=== PATIENT | female | born 1970 | race Caucasian/White ===

== ENCOUNTER 2019-08-15 15:36 | Outpatient (RCR) | payer OTHER, SELFPAY ==
[2019-06-05 17:36] LABS: INR 2.6; Prothrombin Time 27.6 Seconds (11.1-14.7)
[2019-08-15 16:11] LABS: INR 2.1; Prothrombin Time 22.7 Seconds (11.1-14.7)
== END 2019-09-03 23:59 | disposition home or self-care (01) ==
LOC: ANHLAB 15:36
PROVIDERS: PCP Internal Medicine; Visit Provider Internal Medicine Cardiovascular Disease
DX: I26.99 Other pulmonary embolism without acute cor pulmonale (principal); Z79.01 Long term (current) use of anticoagulants
CPT/HCPCS: 36415; 85610

== ENCOUNTER 2020-02-22 11:46 | Outpatient (RCR) | payer OTHER, SELFPAY ==
[2020-02-22 12:18] LABS: Hematocrit 44.9 % (37.0-47.0); Hemoglobin 14.8 g/dL (12.0-15.0); Mean Corpuscular Hemoglobin 29.1 pg (26-34); Mean Corpuscular Volume 88.4 fl (80-100); Mean Platelet Volume 10.2 fl (7.4-10.4); Platelet Count Result 213 k/mm3 (150-375); Red Blood Count 5.08 M/mm3 (4.2-5.4); Red Cell Distribution Width 12.5 % (11.5-14.5); White Blood Count 7.3 K/mm3 (4.5-10.0)
[2020-02-22 12:30] LABS: INR 2.1; Prothrombin Time 23.3 Seconds (11.1-14.7)
[2020-02-22 12:31] LABS: Alanine Aminotransferase 12 U/L (4-35); Aspartate Amino Transferase 20 U/L (14-36)
[2020-02-28 16:42] LABS: Carbamazepine Tegretol 6.6 mcg/mL (4.0-12.0)
== END 2020-05-22 23:59 | disposition home or self-care (01) ==
LOC: ANHLAB 11:46
PROVIDERS: PCP Internal Medicine; Visit Provider Internal Medicine Cardiovascular Disease
DX: Z51.81 Encounter for therapeutic drug level monitoring (principal); I26.99 Other pulmonary embolism without acute cor pulmonale; Z79.01 Long term (current) use of anticoagulants; Z79.899 Other long term (current) drug therapy
CPT/HCPCS: 36415; 80156; 84450; 84460; 85027; 85610

== ENCOUNTER 2020-05-29 14:04 | Emergency (ER) | payer OTHER, SELFPAY ==
[2020-05-29] VITALS (18 sets, daily range): BP systolic 113–151; BP diastolic 62–95; PULSE 84–112; RESP 8–26; TEMP 36.4; O2SAT 97–100
--- NOTE | ~2020-05-29 | CT_ITS ---
EXAMINATION: CTA chest PE protocol DATE: 05/29/2020 16:46 CDT INDICATION: Shortness of breath for 2 days TECHNIQUE: Computed tomographic angiography (CTA) of the chest was performed with 100 mL Omnipaque-35 0 intravenous contrast. The dose-length product was 937.81 mGy-cm. Maximum intensity projection 3D-re constructions of the aorta and other arteries were constructed by the technologist on a separate work station. Automated exposure control and iterative reconstruction technique were employed. COMPARISON: CT dated 03/21/2018 FINDINGS: Study is technically adequate without evidence for pulmonary embolism. There is atheroscler osis of the aorta and coronary arteries. No evidence for aortic aneurysm or dissection. There are cho lecystectomy and gastric bypass surgical changes. No thoracic lymphadenopathy. No significant pleural or pericardial effusion. No pulmonary nodules or masses. No endobronchial lesions. No pneumothorax. No acute osseous abnormality. IMPRESSION: 1. No acute cardiopulmonary disease. No evidence for pulmonary embolism. Reviewed, dictated and finalized at location A.
--- NOTE | ~2020-05-29 | XR_ITS ---
EXAMINATION: XR chest 2V DATE: 05/29/2020 14:29 INDICATION: Asthma presenting with shortness of breath and pulmonary embolism. TECHNIQUE: PA and lateral views of the chest were obtained. COMPARISON: Chest radiograph dated 11/15/[address] dated 03/21/2018 FINDINGS: The lungs remain clear with no focal airspace opacities, pulmonary edema, pleural effusion or pneumot horax. The cardiomediastinal silhouette is normal. Cholecystectomy clips in the right upper quadrant. Mild thoracic spondylosis. IMPRESSION: 1. No acute cardiopulmonary disease. Reviewed, dictated and finalized at location B.
--- NOTE | 2020-05-29 14:11 | ECG_ITS ---
Measurements Intervals [place] Rate: 91 P: 39 GA: 164 QRS: 3 QRSD: 97 T: 37 QT: 352 QTc: 434 Interpretive Statements SINUS RHYTHM INFERIOR INFARCT, AGE INDETERMINATE BASELINE ARTIFACT- I, II, AVR, AVF, V1, V5 ABNORMAL ECG Electronically Signed On 05-29-2020 14:46:30 CDT by Surendra Phillips D.O.
[2020-05-29 14:34] LABS: Basophils Percent Auto 0.4 % (0.2-1.2); Hematocrit 46.7 % (37.0-47.0); Hemoglobin 15.1 g/dL (12.0-15.0); Immature Granulocyte Absolute 0.03 K/mm3 (0.00-0.031); Immature Granulocyte Percent A 0.4 % (0-0.5); Lymphocytes Absolute Auto 1.87 K/mm3 (0.9-3.2); Lymphocytes Percent Auto 23.9 % (18.3-44.2); Mean Corpuscular HGB Conc 32.3 g/dl (32-36); Mean Corpuscular Hemoglobin 29.4 pg (26-34); Mean Corpuscular Volume 90.9 fl (80-100); Mean Platelet Volume 9.6 fl (7.4-10.4); Monocytes Absolute Auto 0.5 K/mm3 (0.1-0.6); Neutrophils Absolute Auto 5.4 K/mm3 (1.3-6.7); Neutrophils Percent Auto 69.3 % (45.5-73.1); Platelet Count Result 248 k/mm3 (150-375); Red Blood Count 5.14 M/mm3 (4.2-5.4); Red Cell Distribution Width 12.7 % (11.5-14.5); White Blood Count 7.8 K/mm3 (4.5-10.0)
[2020-05-29 14:45] LABS: Anion Gap 6 mmol/L (8-16); Blood Urea Nitrogen 12 mg/dL (7-17); Calcium 9.5 mg/dL (8.4-10.2); Carbon Dioxide 31 mmol/L (22-30); Chloride 104 mmol/L (98-107); Estimated CRCL calculation 107 ml/min; Estimated Glomerular Filt Rate > 60; Glucose 125 mg/dL (65-105); Potassium 3.2 mmol/L (3.4-5.0); Sodium 141 mmol/L (137-145)
[2020-05-29 14:46] LABS: Partial Thromboplastin Time 25.2 SECONDS (22.3-36.8); Prothrombin Time 12.8 Seconds (11.1-14.7)
--- NOTE | 2020-05-29 15:38 | ED.SOB ---
HPI - SOB/Dyspnea General Chief Complaint: Shortness of Breath/Dyspnea Stated Complaint: upper back pain - SOB Time Seen by Provider: 05/29/20 14:16 Source: patient Mode of arrival: ambulatory Limitations: no limitations History of Present Illness HPI Narrative: 49-year-old female Past history of unknown provoked DVT/PE Complains of a 5-day history of a pain in her upper back on the left side and worsening subjective dyspnea 3 days ago she had her INR checked and it was normal, not therapeutic Sees Dr. Phillips for her anticoagulation although she really does not have any cardiac issues She has an occasional cough no fever No edema No body aches Negative Covid test a couple months ago MD elicited complaint: shortness of breath Pertinent past history: PE Onset (ago): day(s) Related Data Home Medications Medication Instructions Recorded Confirmed carbamazepine 200 mg 400 mg PO .in am tablet 10/08/19 10/15/19 tablet,extended release,12 hr clonazepam 2 mg tablet 2 mg PO DAILY 10/08/19 10/15/19 escitalopram oxalate 20 mg tablet 10 mg PO DAILY 10/08/19 10/15/19 pravastatin 20 mg tablet 20 mg PO DAILY 10/08/19 10/15/19 warfarin 2.5 mg tablet 2.5 mg PO DAILY 10/08/19 10/15/19 warfarin 5 mg tablet 5 mg PO DAILY 10/08/19 10/15/19 venlafaxine 25 mg tablet 25 mg PO DAILY 10/09/19 10/15/19 Allergies Allergy/AdvReac Type Severity Reaction Status Date / Time Penicillins Allergy Intermediate Hives, Verified 05/29/20 14:09 yeast infection Review of Systems Review of Systems: All systems reviewed & are unremarkable except as noted in HPI and below Constitutional: Constitutional: Denies chills, Denies fatigue, Denies fever(s), Denies headache(s) and Denies weakness Eyes: Eyes: Denies change in vision and Denies other visual disturbances ENT: Denies headache(s), Denies epistaxis, Denies nasal congestion and Denies sore throat Cardiovascular: Cardiovascular: Denies chest pain, Denies leg edema, Denies palpitations and Denies dyspnea Respiratory: Respiratory: Denies cough, Reports dyspnea and Denies wheezing Gastrointestinal: Gastrointestinal: Denies abdominal pain, Denies diarrhea, Denies nausea and Denies vomiting Genitourinary: Genitourinary: Denies hematuria, Denies urinary frequency and Denies dysuria Musculoskeletal: Musculoskeletal: Reports back pain, Denies deformity, Denies arthralgias, Denies joint swelling, Denies muscle weakness and Denies numbness Integumentary/Breasts: Skin/Breast: Denies rash, Denies unusual bruising and Denies wounds Neurologic: Denies Abnormal speech present, Denies headache(s), Denies focal weakness, Denies numbness and Denies weakness Psychiatric: Psychiatric: Reports no additional psychiatric complaints Endocrine: Endocrine: Denies fatigue and Denies palpitations Hematologic/Lymphatic: Hematologic/Lymphatic: Denies easy bleeding and Denies easy bruising Allergic/Immunologic: Allergic/Immunologic: Denies wheezing [facility] Family History Family History Sibling Hypertension Mother Family history of thyroid disease Hypertension Social History Social History Smoking status: Current every day smoker Second hand tobacco smoke exposure: No Smoking end date: 08/01/06 Alcohol intake: never Substance use: never Gender identity (if verbalized by the patient): Female Exam Const: General: no acute distress, well developed and awake Nutritional Appearance: obese Orientation/consciousness: patient oriented x3 (alert) Limitations: no limitations HENMT: Head: normocephalic and atraumatic Ears: external ears normal General nose exam: No nasal discharge present and no epistaxis Face and sinus: face symmetric Eyes: Conjunctivae: conjunctivae normal Sclera: sclerae normal EOM: EOMs intact bilaterally Neck: Neck: normal visual inspection, gore
== END 2020-05-29 17:40 | disposition home or self-care (01) ==
PROVIDERS: Emergency Medicine; Emergency Provider Emergency Medicine; PCP Internal Medicine
DX: R06.00 Dyspnea, unspecified (principal); F17.210 Nicotine dependence, cigarettes, uncomplicated; R94.31 Abnormal electrocardiogram [ECG] [EKG]
CPT/HCPCS: 36415; 71046; 71275; 80048; 85025; 85610; 85730; 93005; 99284; Q9967

== ENCOUNTER 2020-08-20 08:10 | Outpatient (RCR) | payer OTHER, SELFPAY ==
[2020-05-27 16:26] LABS: INR 0.9
[2020-07-18 16:04] LABS: INR 3.9; Prothrombin Time 38.8 Seconds (11.1-14.7)
[2020-08-20 08:38] LABS: INR 1.7; Prothrombin Time 20.2 Seconds (11.1-14.7)
== END 2020-08-25 23:59 | disposition home or self-care (01) ==
LOC: ANHLAB 08:10
PROVIDERS: PCP Internal Medicine Cardiovascular Disease; Visit Provider Internal Medicine Cardiovascular Disease
DX: Z51.81 Encounter for therapeutic drug level monitoring (principal); I26.99 Other pulmonary embolism without acute cor pulmonale; Z79.01 Long term (current) use of anticoagulants
CPT/HCPCS: 36415; 85610

== ENCOUNTER 2020-09-02 14:12 | Emergency (ER) | payer OTHER, SELFPAY ==
--- NOTE | ~2020-09-02 | CT_ITS ---
EXAMINATION: CT brain wo con, CT cervical spine wo con EXAM DATE: 09/02/2020 16:41 INDICATION: Recent falls. Gait instability. TECHNIQUE: Spiral CT of the head was performed without contrast. Axial, coronal and sagittal images were reviewed. Spiral CT of the cervical spine was performed without contrast. Axial images were rev iewed. Coronal and sagittal reformatted images were also reviewed. The dose-length product (DLP) fo r this examination was 605.33 (accession [id number]), 366.44 (accession [id number]) mGy-cm. The exposure was tailored according to patient size, and iterative reconstruction (ASIR) was used as additional dose reduction technique. There is no prior study for comparison. FINDINGS: HEAD CT: There is no acute intraparenchymal hemorrhage. No evidence of intraparenchymal brain mass l esion. No evidence of acute infarction. There is no mass effect or midline shift. There is no obstru ctive hydrocephalus suspected. There are no extra-axial collections. There are no acute calvarial f ractures. The orbits are unremarkable. Soft tissue is unremarkable. Mild to moderate bilateral eth moid mucoperiosteal opacity. CERVICAL CT: There is no evidence of acute cervical fracture. The odontoid process is intact. Pre- dens space is normal. Prevertebral soft tissue is normal. There are no soft tissue abnormalities id entified. There is no disc space widening or traumatic vertebral body subluxation suspected. Mild c ervical spondylosis. Goiter. A detailed level by level evaluation of spondylosis can be added as add endum if requested. IMPRESSION: 1. No acute intracranial findings or cervical fracture. 2. Ethmoid mucoperiosteal thickening. 3. Cervical spondylosis. 4. Goiter. Reviewed, dictated and finalized at location B. TER GEOPHYSICAL IMPRESSION: 1. No acute intracranial findings or cervical fracture. 2. Ethmoid mucoperiosteal thickening. 3. Cervical spondylosis. 4. Goiter.
[2020-09-02 14:57] VITALS: BP 154/90; PULSE 97; RESP 18; TEMP 37; O2SAT 97
[2020-09-02 15:20] LABS: Basophils Percent Auto 0.3 % (0.2-1.2); Hematocrit 44.1 % (37.0-47.0); Hemoglobin 14.7 g/dL (12.0-15.0); Immature Granulocyte Absolute 0.05 K/mm3 (0.00-0.031); Immature Granulocyte Percent A 0.5 % (0-0.5); Lymphocytes Absolute Auto 1.97 K/mm3 (0.9-3.2); Lymphocytes Percent Auto 20.5 % (18.3-44.2); Mean Corpuscular HGB Conc 33.3 g/dl (32-36); Mean Corpuscular Hemoglobin 29.8 pg (26-34); Mean Corpuscular Volume 89.5 fl (80-100); Mean Platelet Volume 9.8 fl (7.4-10.4); Monocytes Absolute Auto 0.5 K/mm3 (0.1-0.6); Monocytes Percent Auto 4.8 % (2.6-8.5); Neutrophils Absolute Auto 7.1 K/mm3 (1.3-6.7); Neutrophils Percent Auto 73.9 % (45.5-73.1); Platelet Count Result 204 k/mm3 (150-375); Red Blood Count 4.93 M/mm3 (4.2-5.4); Red Cell Distribution Width 12.5 % (11.5-14.5); White Blood Count 9.6 K/mm3 (4.5-10.0)
[2020-09-02 15:23] LABS: Alanine Aminotransferase 17 U/L (4-35); Albumin Level 4.1 g/dL (3.5-5.1); Alkaline Phosphatase 82 U/L (38-126); Anion Gap 8 mmol/L (8-16); Aspartate Amino Transferase 25 U/L (14-36); Bilirubin,Total 0.3 mg/dL (0.2-1.3); Blood Urea Nitrogen 10 mg/dL (7-17); Calcium 9.2 mg/dL (8.4-10.2); Carbon Dioxide 26 mmol/L (22-30); Chloride 106 mmol/L (98-107); Estimated CRCL calculation 104 ml/min; Estimated Glomerular Filt Rate > 60; Glucose 97 mg/dL (65-105); Potassium 3.8 mmol/L (3.4-5.0); Sodium 140 mmol/L (137-145)
[2020-09-02 15:28] LABS: INR 2.2; Prothrombin Time 25.2 Seconds (11.1-14.7)
[2020-09-02 15:30] LABS: Partial Thromboplastin Time 31.7 SECONDS (22.3-36.8)
[2020-09-02 16:19] LABS: Add Urine Microscopic? YES; Appearance Urine Clear (Clear); Bacteria Urine Trace /hpf; Bilirubin Urine Negative (Negative); Blood Urine Negative (Negative); Color Urine Yellow (Yellow); Glucose Urine UA Negative (Negative); Ketones Urine Trace mg/dL (Negative); Leukocyte Esterase Ur Negative LEU/UL (Negative); Mucus Urine Heavy /lpf; Nitrate Urine Negative (Negative); Protein Urine 1+ mg/dL (Negative); Specific Grav Ur 1.029 (1.001-1.035); Squamous Epithelial Cell Urine Few /hpf (Few); Urobilinogen Urine Negative mg/dL (<2.0); WBC Urine 0-3 /hpf
--- NOTE | 2020-09-02 16:22 | ED.GENADULT ---
HPI - General Adult General Chief complaint: Unspecified Stated complaint: frequent falls/low INR Time Seen by Provider: 09/02/20 16:05 Source: patient History of Present Illness HPI narrative: Patient is a 50 y/o female complaining of frequent falls. She states that she does not know why she has been falling. She fell 7 times over last month. Her last fall was 3 days ago on Tuesday. She denies any localized pain from fall. She feels like she has pain all over. She is able to move all 4 extremities and walk without assistance. She denies passing out or tripping during the falls. She states that she just goes down. She also states that he her INR has been subtherapeutic and and she contacted Dr. Phillips's office today and was told to come to ED for head CT before they would adjust her Coumadin. She states that she takes Coumadin for history of DVT and PE. Related Data Home Medications Medication Instructions Recorded Confirmed carbamazepine 200 mg 400 mg PO .in am tablet 10/08/19 10/15/19 tablet,extended release,12 hr clonazepam 2 mg tablet 2 mg PO DAILY 10/08/19 10/15/19 escitalopram oxalate 20 mg tablet 10 mg PO DAILY 10/08/19 10/15/19 pravastatin 20 mg tablet 20 mg PO DAILY 10/08/19 10/15/19 warfarin 2.5 mg tablet 2.5 mg PO DAILY 10/08/19 10/15/19 warfarin 5 mg tablet 5 mg PO DAILY 10/08/19 10/15/19 venlafaxine 25 mg tablet 150 mg PO DAILY tablet 09/01/20 Allergies Allergy/AdvReac Type Severity Reaction Status Date / Time Penicillins Allergy Intermediate Hives, Verified 09/01/20 14:11 yeast infection Review of Systems Constitutional: Constitutional: Denies chills, Denies fever(s), Denies headache(s) and Denies weakness Eyes: Eyes: Denies blurry vision ENT: Denies headache(s) and Denies neck pain Cardiovascular: Cardiovascular: Denies chest pain and Denies dyspnea Respiratory: Respiratory: Denies cough and Denies dyspnea Gastrointestinal: Gastrointestinal: Denies abdominal pain, Denies diarrhea, Denies nausea and Denies vomiting Genitourinary: Genitourinary: Denies hematuria and Denies dysuria Musculoskeletal: Musculoskeletal: Denies back pain, Denies neck pain and Reports other (frequent falls) Neurologic: Reports frequent falls, Denies headache(s) and Denies weakness PMFSH Family History Family History Sibling Hypertension Mother Family history of thyroid disease Hypertension Social History Social History Smoking packs per day: 1 Smoking cigarettes per day: 20.0 Years smoked: 25 Smoking pack-years: 25.00 Smoking status: Current every day smoker Second hand tobacco smoke exposure: No Smoking end date: 08/01/06 Alcohol intake: never Substance use: never Gender identity (if verbalized by the patient): Female Exam Const: General: no acute distress and well developed Orientation/consciousness: oriented to person, oriented to place, oriented to time and patient oriented x3 HENMT: Head: normocephalic Ears: external ears normal General nose exam: Normal external nose present Eyes: General: appearance normal, both eyes and all related structures Conjunctivae: conjunctivae normal Neck: Neck: normal visual inspection and full ROM Chest: Chest palpation & inspection: normal inspection of the chest and no tenderness Resp: Effort & Inspection: normal respiratory effort Auscultation: clear to auscultation bilaterally Cardio: Rate: regular rate Rhythm: regular rhythm GI: GI Palp: No abdominal tenderness and Yes Soft to palpation Skin: General skin exam: normal color and turgor normal Neuro: General: oriented to person, oriented to place, oriented to time and patient oriented x3 Cognition (Neuro): normal cognition Extrem: General: normal to inspection, full ROM and no pedal edema Psych: Appearance: grossly normal Mental Status: mental status grossly janet
[2020-09-02 17:00] VITALS: BP 152/87; PULSE 92; RESP 18; O2SAT 100
== END 2020-09-02 18:14 | disposition home or self-care (01) ==
PROVIDERS: Emergency Medicine; Emergency Provider Emergency Medicine; PCP Internal Medicine
DX: R29.6 Repeated falls (principal); Z79.01 Long term (current) use of anticoagulants; Z86.711 Personal history of pulmonary embolism; Z86.718 Personal history of other venous thrombosis and embolism; F17.210 Nicotine dependence, cigarettes, uncomplicated; M47.812 Spondylosis without myelopathy or radiculopathy, cervical region; E04.9 Nontoxic goiter, unspecified
CPT/HCPCS: 36415; 70450; 72125; 80053; 81001; 85025; 85610; 85730; 99284

== ENCOUNTER → 2020-09-22 10:42 | Outpatient (CLI) | payer OTHER, SELFPAY ==
[2020-09-23 14:41] LABS: SARS-CoV-2 RNA PCR Positive
== END ==
PROVIDERS: PCP Internal Medicine; Visit Provider Internal Medicine
DX: U07.1 COVID-19 (principal)
CPT/HCPCS: C9803; U0003; U0005

== ENCOUNTER 2020-09-24 09:10 | Outpatient (RCR) | payer OTHER, SELFPAY ==
[2020-09-24] MEDS: diphenhydrAMINE HCl CAP 25 MG CAPSULE PO (13:29)
[2020-09-24] MEDS: ACETAMINOPHEN 325 MG TABLET 650 MG PO (13:29)
[2020-09-24] MEDS: FAMOTIDINE 20 MG TABLET PO (13:30)
[2020-09-24 14:13] VITALS: BP 132/84; PULSE 84; RESP 16; TEMP 36.9; O2SAT 98
[2020-09-24 15:18] VITALS: BP 136/87; PULSE 86; RESP 16; O2SAT 100
== END 2020-10-07 10:47 ==
LOC: AMCINF 09:10
PROVIDERS: PCP Internal Medicine; Visit Provider Internal Medicine Hematology & Oncology
DX: Z23 Encounter for immunization (principal); U07.1 COVID-19
CPT/HCPCS: A9270; M0239; Q0239

== ENCOUNTER 2020-10-30 09:27 | Outpatient (RCR) | payer OTHER, SELFPAY ==
[2020-09-01 16:31] LABS: INR 1.6
--- NOTE | ~2020-10-30 | XR_ITS ---
EXAMINATION: XR wrist LT min 3V DATE: 09/01/2020 15:21 INDICATION: Left wrist pain. TECHNIQUE: 4 views of left wrist were obtained. COMPARISON: Left hand radiographs 07/26/2013 FINDINGS: Bone alignment is normal. No fracture. There is mild osteoarthritis of first carpometacarpa l joint. IMPRESSION: 1. Mild osteoarthritis of first carpometacarpal joint. Reviewed, dictated and finalized at location A. OP ARCHITECT
[2020-10-30 10:37] LABS: INR 2.3; Prothrombin Time 25.8 Seconds (11.1-14.7)
== END 2020-11-30 23:59 | disposition home or self-care (01) ==
LOC: ANHLAB 09:27
PROVIDERS: PCP Internal Medicine; Referring Provider Physician Assistant; Visit Provider Internal Medicine Cardiovascular Disease
DX: Z51.81 Encounter for therapeutic drug level monitoring (principal); I82.509 Chronic embolism and thrombosis of unspecified deep veins of unspecified lower extremity; M19.032 Primary osteoarthritis, left wrist; Z79.01 Long term (current) use of anticoagulants
CPT/HCPCS: 36415; 73110; 85610

== ENCOUNTER 2021-01-15 10:29 | Outpatient (CLI) | payer OTHER, SELFPAY ==
--- NOTE | ~2021-01-15 | XR_ITS ---
EXAMINATION: XR lg joint inject/asp w image DATE: 01/15/2021 11:36 INDICATION: Primary osteoarthritis of the left shoulder. TECHNIQUE: A time-out was performed to verify the patient's name, date of , and procedure to b e performed. The procedure including the risks, benefits, and alternatives was discussed with the pat ient. Risks discussed included bleeding and infection. The patient understood the risks and agreed to proceed. The skin overlying the rotator cuff interval of the left glenohumeral joint was prepped an d draped in usual sterile fashion. Anesthetic was administered with 1% lidocaine subcutaneously. A 22 G needle was advanced under fluoroscopic guidance into the joint. Injection of 1 mL of Omnipaque 240 confirmed intra-articular position of the needle. Subsequently, injectate consisting of 7 mL of a 5:2 mixture of 1% lidocaine: 10 mg/mL Kenalog for a total dosage of 20 mg Kenalog was instilled. Wa shout of contrast was seen confirming intra-articular administration. The needle was removed and the entry site was cleaned and dressed. There were no immediate complications. Fluoroscopy exposure time was 0.1 minutes. The total number of images was 2. Total DAP was 0.634 mGycm^2 FINDINGS: Real-time fluoroscopy demonstrates the needle in the left glenohumeral joint. Patient's anyi n prior to procedure:8/10. Patient's pain following the procedure: 7/10. Of note on real-time imagin g there appears to be a Hill-Sachs fracture deformity at the posterolateral humeral head likely relat ed to what the patient described as a chronic left shoulder dislocation injury. IMPRESSION: 1. Left glenohumeral injection of local anesthetic and steroid with minimal decrease in the patient's presenting pain. Reviewed, dictated and finalized at location A. IMPRESSION: 1. Left glenohumeral injection of local anesthetic and steroid with minimal dec rease in the patient's presenting pain.
== END 2021-01-15 10:30 | disposition home or self-care (01) ==
PROVIDERS: PCP Internal Medicine; Visit Provider Orthopaedic Surgery
DX: M19.012 Primary osteoarthritis, left shoulder (principal)
CPT/HCPCS: 20610; 77002; J3301; Q9966

== ENCOUNTER 2021-01-26 15:58 | Outpatient (RCR) | payer OTHER, SELFPAY ==
[2021-01-06 16:39] LABS: INR 3.7; Prothrombin Time 37.2 Seconds (11.1-14.7)
[2021-01-14 17:11] LABS: INR 2.7; Prothrombin Time 29.1 Seconds (11.1-14.7)
[2021-01-26 16:41] LABS: INR 3.7
== END 2021-04-06 23:59 | disposition home or self-care (01) ==
LOC: ANHLAB 15:58
PROVIDERS: PCP Internal Medicine; Visit Provider Internal Medicine Cardiovascular Disease
DX: Z51.81 Encounter for therapeutic drug level monitoring (principal); I82.4Y9 Acute embolism and thrombosis of unspecified deep veins of unspecified proximal lower extremity; I82.509 Chronic embolism and thrombosis of unspecified deep veins of unspecified lower extremity; Z79.01 Long term (current) use of anticoagulants
CPT/HCPCS: 36415; 85610

== ENCOUNTER 2021-01-26 15:59 | Outpatient (CLI) | payer OTHER, SELFPAY ==
[2021-01-26 16:39] LABS: Alanine Aminotransferase 13 U/L (4-35); Aspartate Amino Transferase 21 U/L (14-36)
[2021-01-29 12:38] LABS: Carbamazepine Tegretol 6.3 mcg/mL (4.0-12.0)
== END 2021-01-26 16:00 | disposition home or self-care (01) ==
LOC: ANHLAB 16:03
PROVIDERS: PCP Internal Medicine
DX: Z79.899 Other long term (current) drug therapy (principal)
CPT/HCPCS: 36415; 80156; 84450; 84460; 85610

== ENCOUNTER 2021-04-17 12:52 | Outpatient (CLI) | payer OTHER, SELFPAY ==
--- NOTE | ~2021-04-17 | MR_ITS ---
EXAMINATION: MR brain IAC wo/w con EXAM DATE: 04/17/2021 14:09 INDICATION: R42 - Dizziness and giddiness TECHNIQUE: Multi-sequential, multiplanar MR images of the brain, brainstem, internal auditory canals were obtained without contrast. Whole brain sagittal T1, axial diffusion, gradient echo (T2*), T1, T 2, FLAIR sequences obtained. High resolution coronal 3-D FIESTA, coronal T1 FSE, axial T1 FSPGR of t he internal auditory canals. Patient was then injected with 20 cc Multihance contrast intravenously. Postcontrast axial and coronal T1 weighted whole brain, axial and coronal high resolution T1 IAC seq uences obtained. Comparison is made to prior examination from 04/23/2018. FINDINGS: No evidence of mastoid or middle ear opacification. The 7th/8th cranial nerve complexes a re symmetric, normal in course and caliber. No cerebellopontine angle masses. Posterior fossa unrem arkable. There is punctate old left cerebellar infarction. Mild microangiopathy. There are no areas of restric roberto diffusion to suggest acute infarction. There is no acute hemorrhage seen on the T2*, a hemosider in sensitive sequence. No intraparenchymal brain mass. The ventricles are normal in size. There are no extra-axial collections. Flow voids are seen in the cerebral arteries on the T2-weighted sequenc es consistent with their expected patency. The orbits are unremarkable. Soft tissue is unremarkable . There are no areas of abnormal enhancement on the postcontrast images. Mild bilateral ethmoid muc operiosteal thickening. IMPRESSION: 1. 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 Reviewed, dictated and finalized at location B.
[2021-04-17 13:20] LABS: Estimated Glomerular Filt Rate > 60
[2021-04-17 14:54] LABS: Basophils Percent Auto 0.4 % (0.2-1.2); Eosinophils Percent Auto 0.1 % (0-4.4); Hematocrit 43.3 % (37.0-47.0); Hemoglobin 14.1 g/dL (12.0-15.0); Immature Granulocyte Absolute 0.02 K/mm3 (0.00-0.031); Immature Granulocyte Percent A 0.2 % (0-0.5); Lymphocytes Percent Auto 20.9 % (18.3-44.2); Mean Corpuscular HGB Conc 32.6 g/dl (32-36); Mean Corpuscular Hemoglobin 29.7 pg (26-34); Mean Corpuscular Volume 91.4 fl (80-100); Mean Platelet Volume 10.2 fl (7.4-10.4); Monocytes Absolute Auto 0.5 K/mm3 (0.1-0.6); Monocytes Percent Auto 6.5 % (2.6-8.5); Neutrophils Absolute Auto 5.9 K/mm3 (1.3-6.7); Neutrophils Percent Auto 71.9 % (45.5-73.1); Platelet Count Result 178 k/mm3 (150-375); Red Blood Count 4.74 M/mm3 (4.2-5.4); Red Cell Distribution Width 12.7 % (11.5-14.5); White Blood Count 8.1 K/mm3 (4.5-10.0)
[2021-04-17 15:08] LABS: Alanine Aminotransferase 13 U/L (4-35); Albumin Level 3.9 g/dL (3.5-5.1); Alkaline Phosphatase 95 U/L (38-126); Anion Gap 8 mmol/L (8-16); Aspartate Amino Transferase 21 U/L (14-36); Bilirubin,Total 0.4 mg/dL (0.2-1.3); Blood Urea Nitrogen 9 mg/dL (7-17); Calcium 8.9 mg/dL (8.4-10.2); Carbon Dioxide 26 mmol/L (22-30); Chloride 106 mmol/L (98-107); Cholesterol 194 mg/dL (0-200); Estimated Glomerular Filt Rate > 60; Glucose 99 mg/dL (65-110); HDL Direct 58 mg/dL; Potassium 3.5 mmol/L (3.4-5.0); Sodium 140 mmol/L (137-145); Triglycerides 154 mg/dL (<150)
[2021-04-17 15:15] LABS: LDL Cholesterol Direct 87 mg/dL
[2021-04-17 16:58] LABS: Thyroid Stimulating Hormone 0.449 uIU/mL (0.465-4.680)
[2021-04-17 17:34] LABS: Folic Acid 16.5 ng/mL (2.76->20)
== END 2021-04-17 12:53 | disposition home or self-care (01) ==
PROVIDERS: PCP Internal Medicine; Visit Provider Internal Medicine
DX: R51.9 Headache, unspecified (principal); E78.5 Hyperlipidemia, unspecified; R53.83 Other fatigue; Z86.73 Personal history of transient ischemic attack (TIA), and cerebral infarction without residual deficits
CPT/HCPCS: 36415; 70553; 80053; 80061; 82607; 82746; 84443; 85025; 85610; A9577

== ENCOUNTER 2021-05-12 11:50 | Emergency (ER) | payer OTHER, SELFPAY ==
--- NOTE | ~2021-05-12 | CT_ITS ---
EXAMINATION: CT brain wo con DATE: 05/12/2021 12:13 INDICATION: Injury. Occipital head pain. TECHNIQUE: Computed tomography (CT) of the head was performed without intravenous contrast. The mA wa s adjusted according to patient size. Iterative reconstruction technique was employed. Exam dose: 60 5.33 mGy-cm total exam DLP. COMPARISON: 04/17/2021 MR brain 09/02/2020 CT brain FINDINGS: No intracranial mass lesion or hemorrhage or cerebrovascular accident is detected. No midli ne shift or mass effect. Normal ventricular size. Bilateral carotid siphon internal carotid artery calcifications. No subdural or epidural hematoma. No fracture or bone destruction of the cranial vault. There is patchy opacification of ethmoid air cells, left greater than right. The paranasal sinuses a re otherwise unremarkable. IMPRESSION: Cerebral atherosclerosis No skull fracture or acute intracranial abnormality Reviewed, dictated and finalized at Location A. Reviewed, dictated and finalized at location B.
--- NOTE | ~2021-05-12 | XR_ITS ---
XR thoracic spine 3V DATE: 05/12/2021 13:37 INDICATION: Fall. Back pain. TECHNIQUE: AP, lateral, swimmer views COMPARISON: None FINDINGS: There is minimal dextroscoliosis of the upper thoracic spine. There is mild degenerative sp urring of the thoracic spine. No fracture or dislocation or bone destruction is detected. The thoracic pedicles are intact. No para spinal soft tissue thickening. IMPRESSION: Minimal scoliosis and mild degenerative change Reviewed, dictated and finalized at location B.
--- NOTE | ~2021-05-12 | CT_ITS ---
EXAMINATION: CT cervical spine wo con EXAM DATE: 05/12/2021 13:30 INDICATION: Fall and neck pain. TECHNIQUE: Spiral CT of the cervical spine was performed without contrast. Axial images were reviewe d. Coronal and sagittal reformatted images cervical spine were also reviewed. The dose-length produc t (DLP) for this examination was 438.03 mGy-cm. The exposure was tailored according to patient size (auto mA exposure control), and iterative reconstruction (ASIR) was used as additional dose reduction technique. Comparison is made to prior examination from 09/02/2020. FINDINGS: There is no evidence of acute cervical fracture. The odontoid process is intact. Pre-dens space is normal. Prevertebral soft tissue is normal. There are no soft tissue abnormalities identi fied. There is no disc space widening or traumatic vertebral body subluxation suspected. There is m ild disc disease at C6-7. Mild to moderate cervical arthropathy. A detailed level by level evaluatio n of spondylosis can be added as addendum if requested. IMPRESSION: 1. No acute cervical fracture. Reviewed, dictated and finalized at location A.
[2021-05-12 11:52] VITALS: BP 129/79; PULSE 108; RESP 20; TEMP 36.9; O2SAT 98
--- NOTE | 2021-05-12 13:01 | PC.NURSE ---
Pt with hx DVT/PE on coumadin presents after mechanical ground level fall that occurred around 10:30 this am. Pt fell backwards, hit occiput area on concrete. No LOC but states everything went black and that she felt dizzy for a couple minutes following the fall. Denies C-spine tenderness on palpation but complains of right sided neck pain that she states she feels is muscular down her back/around right shoulder. Complaining of headache, no obvious sign of injury. Head CT completed. A&Ox4. Awaiting results.
[2021-05-12] MEDS: HYDROcodone/acetaminophen (*CRX) 5-325 MG TABLET 1 TAB PO (13:45)
--- NOTE | 2021-05-12 14:27 | ED.GENADULT ---
HPI - General Adult General Chief complaint: Head Injury <ASHLEY Wallace Last Filed: 05/12/21 15:35> Stated complaint: head injury <ASHLEY Wallace Last Filed: 05/12/21 15:35> Time Seen by Provider: 05/12/21 12:28 <ASHLEY Wallace Last Filed: 05/12/21 15:35> Source: patient <ASHLEY Wallace Last Filed: 05/12/21 15:35> Mode of arrival: ambulatory <ASHLEY Wallace Last Filed: 05/12/21 15:35> Limitations: no limitations <ASHLEY Wallace Last Filed: 05/12/21 15:35> History of Present Illness HPI narrative: Patient presents with chief complaint of head, her neck and her upper back that began after falling and hitting her right side on the cement. States that she is on Coumadin due to having problems with blood clots. Patient reports initially she did have some blurry vision. After a few minutes and normalized. Patient denies having any visual or hearing change at this time. Patient denies any vomiting. Patient denies chest pain or shortness of breath. She reports generalized soreness to the right side of her body. She denies bony tenderness other than the aforementioned areas. Patient denies any neurological deficits. She denies any bleeding or abnormal drainage from any of her orifices. <ASHLEY Wallace Last Filed: 05/12/21 15:35> Related Data Home medications: Home Medications Medication Instructions Recorded Confirmed carbamazepine 200 mg 400 mg PO .in am tablet 10/08/19 04/10/21 tablet,extended release,12 hr clonazepam 2 mg tablet 2 mg PO DAILY 10/08/19 04/10/21 pravastatin 20 mg tablet 20 mg PO DAILY 10/08/19 04/10/21 warfarin 2.5 mg tablet 2.5 mg PO DAILY 10/08/19 04/10/21 warfarin 5 mg tablet 5 mg PO DAILY 10/08/19 04/10/21 venlafaxine 25 mg tablet 150 mg PO DAILY tablet 09/01/20 04/10/21 <ASHLEY Wallace Last Filed: 05/12/21 15:35> Allergies/adverse reactions: Allergies Allergy/AdvReac Type Severity Reaction Status Date / Time Penicillins Allergy Intermediate Hives, Verified 04/08/21 16:03 yeast infection <Autumn Allred PA-C - Last Filed: 05/12/21 15:35> Review of Systems Review of Systems: CONSTITUTIONAL: Denies fever, chills, or sweats. EYES: Denies visual changes, redness, or discharge. ENT: Denies rhinorrhea, congestion, sore throat, or otalgia. CARDIOVASCULAR: Denies chest pain, palpitations, or edema. RESPIRATORY: Denies cough or dyspnea. GASTROINTESTINAL: Denies abdominal pain, nausea, vomiting, or diarrhea. GENITOURINARY: Denies dysuria or hematuria. SKIN: Denies rash or itching. MUSCULOSKELETAL: Reports neck and upper thoracic pain denies back pain, joint pain, or myalgia. NEUROLOGIC: Reports headache denies numbness, dizziness, or weakness. PSYCHIATRIC: Denies anxiety or depression. <Autumn Allred PA-C - Last Filed: 05/12/21 15:35> [facility] Past Medical History Medical History: Medical History Anxiety Arthritis of carpometacarpal (CMC) joint of left thumb Osteoarthritis of left shoulder Recurrent falls <Autumn Allred PA-C - Last Filed: 05/12/21 15:35> Surgical History Surgical History: Surgical History H/O: section History of cholecystectomy History of gastric surgery <ASHLEY Wallace Last Filed: 05/12/21 15:35> Family History Family History: Family History Sibling Hypertension Mother Family history of thyroid disease Hypertension <ASHLEY Wallace Last Filed: 05/12/21 15:35> Social History Social History: Social History Smoking packs per day: 1 Smoking cigarettes per day: 20.0 Years smoked: 25 Smoking pack-years: 25.00 Smoking status: Current every day smoker Second hand
[2021-05-12 15:29] VITALS: BP 136/91; PULSE 88; RESP 16; O2SAT 100
== END 2021-05-12 15:48 | disposition home or self-care (01) ==
PROVIDERS: Emergency Provider General Practice; PCP Internal Medicine
DX: S09.90XA Unspecified injury of head, initial encounter (principal); M54.6 Pain in thoracic spine; M54.2 Cervicalgia; F41.9 Anxiety disorder, unspecified; M19.012 Primary osteoarthritis, left shoulder; Z79.01 Long term (current) use of anticoagulants; Z91.81 History of falling; W01.0XXA Fall on same level from slipping, tripping and stumbling without subsequent striking against object, initial encounter
CPT/HCPCS: 70450; 72072; 72125; 99284; A9270; L0140

== ENCOUNTER 2021-06-04 15:19 | Emergency (ER) | payer OTHER, SELFPAY ==
[2021-06-04] VITALS (18 sets, daily range): BP systolic 143–170; BP diastolic 87–104; PULSE 85–105; RESP 11–37; TEMP 36.4; O2SAT 96–100
--- NOTE | ~2021-06-04 | CT_ITS ---
EXAMINATION: CTA chest PE protocol DATE: 06/04/2021 16:23 INDICATION: Chest pain for one week. Shortness of breath for one day. History of blood clots. TECHNIQUE: Computed tomography angiography (CTA) of the chest was performed with 100 mL Omnipaque-350 intravenous contrast timed to evaluate the pulmonary arteries. Coronal maximum intensity projection 3D-reconstructions were created by the technologist. Automated exposure control and iterative reconst ruction technique were employed. Exam dose: 918.05 mGy-cm total exam DLP. COMPARISON: 05/29/2020 CT pulmonary scan, reported negative FINDINGS: There is diagnostic contrast enhancement of the pulmonary arteries and no evidence of pulmo nary embolism. No thoracic aortic aneurysm or dissection. Normal heart size. No pericardial or pleural effusion. No pulmonary consolidation or suspicious pulmonary mass lesion. Status post cholecystectomy. Normal morphology of the adrenal glands. Included skeletal structures are unremarkable. IMPRESSION: No evidence of pulmonary embolism Reviewed, dictated and finalized at [facility]. Reviewed, dictated and finalized at [facility].
--- NOTE | 2021-06-04 15:21 | ECG_ITS ---
Measurements Intervals [place] Rate: 97 P: 37 NE: 154 QRS: -4 QRSD: 96 T: 31 QT: 345 QTc: 439 Interpretive Statements SINUS RHYTHM BORDERLINE R WAVE PROGRESSION, ANTERIOR LEADS BASELINE ARTIFACT- I, II, III, AVR, AVL, V1-V2 BORDERLINE ECG Electronically Signed On 06-04-2021 15:54:34 CDT by Surendra Phillips D.O.
[2021-06-04] MEDS: ASPIRIN 81 MG CHEWABLE TABLET 324 MG PO (15:44)
[2021-06-04] MEDS: MORPHINE SULFATE (*CRX) 4 MG/ML INJ IV PUSH (15:44)
[2021-06-04 15:55] LABS: Basophils Percent Auto 0.3 % (0.2-1.2); Eosinophils Percent Auto 0.1 % (0-4.4); Hematocrit 41.5 % (37.0-47.0); Hemoglobin 13.7 g/dL (12.0-15.0); Immature Granulocyte Absolute 0.03 K/mm3 (0.00-0.031); Immature Granulocyte Percent A 0.3 % (0-0.5); Lymphocytes Percent Auto 20.6 % (18.3-44.2); Mean Corpuscular Hemoglobin 30.3 pg (26-34); Mean Corpuscular Volume 91.8 fl (80-100); Mean Platelet Volume 9.7 fl (7.4-10.4); Monocytes Absolute Auto 0.6 K/mm3 (0.1-0.6); Monocytes Percent Auto 6.5 % (2.6-8.5); Neutrophils Absolute Auto 6.6 K/mm3 (1.3-6.7); Neutrophils Percent Auto 72.2 % (45.5-73.1); Platelet Count Result 218 k/mm3 (150-375); Red Blood Count 4.52 M/mm3 (4.2-5.4); Red Cell Distribution Width 12.9 % (11.5-14.5); White Blood Count 9.2 K/mm3 (4.5-10.0)
[2021-06-04 16:09] LABS: Anion Gap 8 mmol/L (8-16); Blood Urea Nitrogen 14 mg/dL (7-17); Calcium 9.3 mg/dL (8.4-10.2); Carbon Dioxide 26 mmol/L (22-30); Chloride 107 mmol/L (98-107); Estimated CRCL calculation 105 ml/min; Estimated Glomerular Filt Rate > 60; Glucose 106 mg/dL (65-110); Sodium 141 mmol/L (137-145)
[2021-06-04 16:15] LABS: INR 4.4; Prothrombin Time 40.3 Seconds (11.1-14.7)
[2021-06-04 16:16] LABS: Partial Thromboplastin Time 65.6 SECONDS (22.3-36.8)
[2021-06-04 16:20] LABS: Troponin I < 0.012 ng/mL (0.000-0.034)
--- NOTE | 2021-06-04 17:28 | ED.GENADULT ---
HPI - General Adult General Chief complaint: Chest Pain Stated complaint: chest pain Time Seen by Provider: 06/04/21 15:26 History of Present Illness HPI narrative: Patient is a 50-year-old female who presents ER with right-sided chest pain. She reports has been ongoing over the last couple weeks. She has history of PE and is starting have pain when she takes a deep breath. No fevers or chills or sweats. Reports her last INR last week was 3.5. She continues to take her Coumadin. She has no hemoptysis or dark stools. No abdominal pain pain in the chest is worse with twisting and leaning forward as well. Related Data Home Medications Medication Instructions Recorded Confirmed carbamazepine 200 mg 400 mg PO .in am tablet 10/08/19 04/10/21 tablet,extended release,12 hr clonazepam 2 mg tablet 2 mg PO DAILY 10/08/19 04/10/21 pravastatin 20 mg tablet 20 mg PO DAILY 10/08/19 04/10/21 warfarin 2.5 mg tablet 2.5 mg PO DAILY 10/08/19 04/10/21 warfarin 5 mg tablet 5 mg PO DAILY 10/08/19 04/10/21 venlafaxine 25 mg tablet 150 mg PO DAILY tablet 09/01/20 04/10/21 Allergies Allergy/AdvReac Type Severity Reaction Status Date / Time Penicillins Allergy Intermediate Hives, Verified 04/08/21 16:03 yeast infection Review of Systems Review of Systems: All systems reviewed & are unremarkable except as noted in HPI and below Constitutional: Constitutional: Denies chills, Denies fever(s) and Denies weakness ENT: Denies nasal congestion and Denies sore throat Cardiovascular: Cardiovascular: Reports chest pain, Denies rapid heart rate and Denies radiating jaw, neck or arm pain Respiratory: Respiratory: Denies cough, Denies dyspnea and Denies wheezing Gastrointestinal: Gastrointestinal: Denies abdominal pain, Denies nausea and Denies vomiting Musculoskeletal: Musculoskeletal: Reports back pain, Denies myalgias and Denies muscle cramps PMFSH Past Medical History Medical History Anxiety Arthritis of carpometacarpal (CMC) joint of left thumb Osteoarthritis of left shoulder Recurrent falls Surgical History Surgical History H/O: section History of cholecystectomy History of gastric surgery Family History Family History Sibling Hypertension Mother Family history of thyroid disease Hypertension Social History Social History Smoking packs per day: 1 Smoking cigarettes per day: 20.0 Years smoked: 25 Smoking pack-years: 25.00 Smoking status: Current every day smoker Second hand tobacco smoke exposure: No Smoking end date: 08/01/06 Alcohol intake: never Substance use: never Gender identity (if verbalized by the patient): Female Spiritual care concerns: No Exam Narrative: GENERAL: Well-appearing, well-nourished, and in no acute distress. HEAD: Normocephalic, atraumatic. ENT: Mucous membranes moist. CHEST: Clear to auscultation. No respiratory distress. Tender palpation right anterior chest wall with light palpation. HEART: Regular rate and rhythm. Normal peripheral pulses. ABDOMEN: Soft, nontender, nondistended,. EXTREMITIES: Normal range of motion. No edema. SKIN: Warm, dry, no rash. NEURO: Alert and oriented x3. PSYCH: Normal mood and affect. Course Course Emergency Course: Patient informed of results. Discussed elevated INR, she reports she will speak with her spinning doffer tomorrow and will hold her medication tonight. Recommend scheduled Tylenol for chest discomfort as well as muscle relaxers. Patient describes very mechanical chest pain. Troponin negative x2 and there is no PE on CTA. Vital Signs Vital signs: Vital Signs Temperature 97.5 F L 06/04/21 15:22 Pulse Rate 105 H 06/04/21 15:22 Respiratory Rate 14 06/04/21 15:22 Blood Pressure 170/10
== END 2021-06-04 18:46 | disposition home or self-care (01) ==
PROVIDERS: Emergency Medicine; Emergency Provider Emergency Medicine; PCP Internal Medicine
DX: R07.89 Other chest pain (principal); R79.1 Abnormal coagulation profile; Z79.01 Long term (current) use of anticoagulants; Z98.84 Bariatric surgery status; Z87.891 Personal history of nicotine dependence; R94.31 Abnormal electrocardiogram [ECG] [EKG]
CPT/HCPCS: 36415; 71275; 80048; 84484; 85025; 85610; 85730; 93005; 96374; 99284; A9270; J2270; Q9967

== ENCOUNTER 2021-06-09 15:33 | Outpatient (RCR) | payer OTHER, SELFPAY ==
[2021-04-17 14:57] LABS: Prothrombin Time 22.2 Seconds (11.1-14.7)
[2021-05-23 08:31] LABS: INR 3.4; Prothrombin Time 33.5 Seconds (11.1-14.7)
[2021-06-09 16:07] LABS: INR 2.8; Prothrombin Time 28.4 Seconds (11.1-14.7)
== END 2021-07-16 23:59 | disposition home or self-care (01) ==
LOC: ANHLAB 15:33
PROVIDERS: PCP Internal Medicine; Visit Provider Internal Medicine Cardiovascular Disease
DX: Z51.81 Encounter for therapeutic drug level monitoring (principal); I82.4Y9 Acute embolism and thrombosis of unspecified deep veins of unspecified proximal lower extremity; I82.509 Chronic embolism and thrombosis of unspecified deep veins of unspecified lower extremity; Z79.01 Long term (current) use of anticoagulants
CPT/HCPCS: 36415; 85610

== ENCOUNTER → 2021-08-15 02:21 | Outpatient (CLI) | payer OTHER, SELFPAY ==
[2021-08-15 18:41] LABS: Influenza A QL RT-PCR Negative (Negative); Influenza B QL RT-PCR Negative (Negative); SARS-CoV-2 RNA PCR Negative
== END ==
PROVIDERS: PCP Internal Medicine; Visit Provider Internal Medicine
DX: Z20.822 Contact with and (suspected) exposure to COVID-19 (principal)
CPT/HCPCS: 87502; 87804; C9803; U0003; U0005

== ENCOUNTER 2021-09-14 11:42 | Outpatient (RCR) | payer OTHER, SELFPAY ==
[2021-09-07 15:51] LABS: INR 1.9
[2021-09-14 12:49] LABS: INR 3.1; Prothrombin Time 31.1 Seconds (11.1-14.7)
== END 2021-12-06 23:59 | disposition home or self-care (01) ==
LOC: ANHLAB 11:42
PROVIDERS: PCP Internal Medicine; Referring Provider Internal Medicine Cardiovascular Disease; Visit Provider Internal Medicine Cardiovascular Disease
DX: Z51.81 Encounter for therapeutic drug level monitoring (principal); I82.4Y9 Acute embolism and thrombosis of unspecified deep veins of unspecified proximal lower extremity; Z79.01 Long term (current) use of anticoagulants
CPT/HCPCS: 36415; 85610

== ENCOUNTER 2021-09-14 11:43 | Outpatient (CLI) | payer OTHER, SELFPAY ==
[2021-09-14 12:33] LABS: Basophils Percent Auto 0.4 % (0.2-1.2); Eosinophils Percent Auto 0.1 % (0-4.4); Hematocrit 41.3 % (37.0-47.0); Hemoglobin 13.9 g/dL (12.0-15.0); Immature Granulocyte Absolute 0.02 K/mm3 (0.00-0.031); Immature Granulocyte Percent A 0.2 % (0-0.5); Lymphocytes Absolute Auto 2.05 K/mm3 (0.9-3.2); Lymphocytes Percent Auto 25.4 % (18.3-44.2); Mean Corpuscular HGB Conc 33.7 g/dl (32-36); Mean Corpuscular Hemoglobin 29.3 pg (26-34); Mean Corpuscular Volume 86.9 fl (80-100); Mean Platelet Volume 9.6 fl (7.4-10.4); Monocytes Absolute Auto 0.6 K/mm3 (0.1-0.6); Monocytes Percent Auto 7.1 % (2.6-8.5); Neutrophils Absolute Auto 5.4 K/mm3 (1.3-6.7); Neutrophils Percent Auto 66.8 % (45.5-73.1); Platelet Count Result 235 k/mm3 (150-375); Red Blood Count 4.75 M/mm3 (4.2-5.4); Red Cell Distribution Width 12.3 % (11.5-14.5); White Blood Count 8.1 K/mm3 (4.5-10.0)
[2021-09-14 12:50] LABS: Alanine Aminotransferase 17 U/L (4-35); Albumin Level 4.1 g/dL (3.5-5.1); Alkaline Phosphatase 96 U/L (38-126); Anion Gap 5 mmol/L (8-16); Aspartate Amino Transferase 26 U/L (14-36); Bilirubin,Total 0.5 mg/dL (0.2-1.3); Blood Urea Nitrogen 9 mg/dL (7-17); Calcium 9.1 mg/dL (8.4-10.2); Carbon Dioxide 25 mmol/L (22-30); Chloride 103 mmol/L (98-107); Cholesterol 171 mg/dL (0-200); Estimated Glomerular Filt Rate > 60; Glucose 102 mg/dL (65-110); HDL Direct 55 mg/dL; Sodium 133 mmol/L (137-145); Triglycerides 69 mg/dL (<150)
[2021-09-14 13:01] LABS: LDL Cholesterol Direct 91 mg/dL
[2021-09-14 13:20] LABS: Thyroid Stimulating Hormone 0.287 uIU/mL (0.465-4.680)
[2021-09-14 13:56] LABS: Folic Acid 11.9 ng/mL (2.76->20)
== END 2021-09-14 11:44 | disposition home or self-care (01) ==
PROVIDERS: PCP Internal Medicine; Visit Provider Internal Medicine
DX: E78.5 Hyperlipidemia, unspecified (principal); R53.83 Other fatigue
CPT/HCPCS: 36415; 80053; 80061; 82607; 82746; 84443; 85025; 85610

== ENCOUNTER 2021-09-25 07:39 | Outpatient (CLI) | payer OTHER, SELFPAY ==
--- NOTE | 2021-09-28 14:02 | WPDHOMESLEEP ---
Sleep Study - Home Unattended Date of Study: 09/25/21 Ordering Provider: Perry Boykin DO Interpreting Provider: Estephania Hernandez DO Home Sleep Study Type: Watch PAT Height: 1.65 m Weight: 111.584 kg Body Mass Index: 40.9 Neck Circumference (inches): 15.5 [place]: 16 Reason for Sleep Study Multiple nighttime awakenings. Loud snoring Sleep History The patient is a 51 y/o female with HTN, anxiety, depression, bipolar disorder, ADHD, and history of stroke that had a home sleep test ordered by her PCP due to multiple nighttime awakenings. The patient occasionally awakens from sleep breath. She denies awakening at night with heartburn, belching or cough. She constantly snores line with others complain. She constantly has trouble sleeping when she has a cold. She denies waking up gasping for air throughout the night. She occasionally has breathing problems at night observed by herself or others. She occasionally sweats excessively at night. She denies having heart palpitations or irregular heartbeats during the night. She occasionally falls asleep during the day and occasionally falls asleep while driving. She frequently experiences loss of muscle tone when extremely emotional. She occasionally has trouble at school or work due to sleepiness. She occasionally feels unable to move while waking up or falling asleep. She occasionally experiences vivid dreamlike scenes upon awakening or falling asleep. She occasionally has nightmares. She constantly has thoughts racing through her mind. She frequently feels sad or depressed. She constantly has anxiety. She frequently notices parts of her body jerk. She frequently kicks during the night. She constantly has crawling and aching feelings in her legs as well as leg pain during the night. she frequently grinds her teeth during sleep and occasionally awakens with morning jaw pain. She feels frequently bothered by pain during the day and frequently awakened by pain during the night. She frequently wakes up feeling stiff in the morning with sore achy muscles. She frequently wakes up with pain in the neck, spine or other joints. She goes to bed between 10 and 11:00 p.m. on both weekdays and weekends. It takes her 30-60 minutes to fall asleep. She wakes up 2-5 times throughout the night to urinate or due to leg cramps. She is able fall back asleep within 10 minutes. She wakes up at 4:00 a.m. on weekdays and 6:00 a.m. weekends. She typically gets 5 hours of sleep per night. She does not stay in bed after waking up in the morning. She currently lives with her and 2 children. He will consume caffeinated beverages within 2 hours of bedtime. She does not engage in physical exercise before bedtime. She will watch television before falling asleep. She does not take naps in the afternoon or the evening. She currently smokes half a pack of cigarettes per day. She drinks 3 caffeinated beverages per day. She denies alcohol recreational drug use. [facility] Past Medical History Medical History (Updated 09/28/21 @ 14:36 by Estephania Hernandez DO) Anxiety Arthritis of carpometacarpal (CMC) joint of left thumb Essential (primary) hypertension History of CVA (cerebrovascular accident) Hyperlipidemia Osteoarthritis of left shoulder Recurrent falls Surgical History Surgical History H/O: section History of cholecystectomy History of gastric surgery Family History Family History Sibling Hypertension Mother Family history of thyroid disease Hypertension Social History Social History Smoking packs per day: 1 Smoking cigarettes per day: 20.0 Years smoked: 25 Smoking pack-years: 25.00 Smoking status: Current every day smoker Second hand tobacco smoke exposure: No Smoking end date: 08/01/06
[2021-09-28 14:06] VITALS: BMI 40.9
== END 2021-09-28 10:41 | disposition home or self-care (01) ==
LOC: ANHCSM 07:39
PROVIDERS: PCP Internal Medicine; Visit Provider Internal Medicine
DX: G47.10 Hypersomnia, unspecified (principal); G47.9 Sleep disorder, unspecified
CPT/HCPCS: 20610; 77002; 95800; J3301; Q9966

== ENCOUNTER 2021-09-25 12:43 | Outpatient (CLI) | payer OTHER, SELFPAY ==
--- NOTE | ~2021-09-25 | XR_ITS ---
EXAMINATION: XR lg joint inject/asp w image DATE: 09/25/2021 13:36 INDICATION: Primary osteoarthritis, left shoulder. TECHNIQUE: A time-out was performed to verify the patient's name, date of , and procedure to b e performed. The procedure including the risks, benefits, and alternatives was discussed with the pat ient. Risks discussed included bleeding and infection. The patient understood the risks and agreed to proceed. The skin overlying the left glenohumeral joint was prepped and draped in usual sterile fas hion. Anesthetic was administered with 1% lidocaine subcutaneously. A 22 G needle was advanced unde r fluoroscopic guidance into the joint. Injection of 1 mL of Omnipaque 240 confirmed intra-articular position of the needle. Subsequently, injectate consisting of 5 mL 1% lidocaine and 2 mL 10 mg/mL D epo-Medrol was instilled. The needle was removed and the entry site was cleaned and dressed. There were no immediate complications. Fluoroscopy exposure time was 0.0 minutes. The total number of image s was 2. FINDINGS: Real-time fluoroscopy demonstrates the needle in the left glenohumeral joint. Patient's anyi n prior to procedure:9/10. Patient's pain following the procedure: 5/10. IMPRESSION: 1. Fluoroscopy guided left glenohumeral joint injection of local anesthetic and steroid with decrease in the patient's presenting pain. Reviewed, dictated and finalized at location [facility]. [facility] [employer] [employer]
== END 2021-09-25 12:44 | disposition home or self-care (01) ==
LOC: ANHIMG 12:44
PROVIDERS: PCP Internal Medicine; Visit Provider Nurse Practitioner
DX: M19.012 Primary osteoarthritis, left shoulder (principal)
CPT/HCPCS: 20610; 77002; J3301; Q9966

== ENCOUNTER 2022-01-26 16:22 | Outpatient (CLI) | payer OTHER, SELFPAY ==
[2022-01-26 17:18] LABS: Thyroid Stimulating Hormone 0.427 uIU/mL (0.465-4.680)
[2022-01-26 17:38] LABS: Free T4 Free Thyroxine 0.94 ng/mL (0.78-2.19)
[2022-01-29 07:30] LABS: Thyroglobulin 62.4 ng/mL (2.8-40.9); Thyroglobulin Antibodies <1 IU/mL (<=1)
== END 2022-01-26 16:23 | disposition home or self-care (01) ==
LOC: ANHLAB 16:24
PROVIDERS: PCP Internal Medicine; Visit Provider Physician Assistant
DX: R79.89 Other specified abnormal findings of blood chemistry (principal)
CPT/HCPCS: 36415; 84432; 84439; 84443; 86800

== ENCOUNTER 2022-03-15 16:21 | Outpatient (CLI) | payer OTHER, SELFPAY ==
[2022-03-15 17:37] LABS: Thyroid Stimulating Hormone 0.325 uIU/mL (0.465-4.680)
[2022-03-15 17:42] LABS: Free T4 Free Thyroxine 0.92 ng/mL (0.78-2.19)
[2022-03-17 02:54] LABS: Thyroglobulin 56.2 ng/mL (2.8-40.9); Thyroglobulin Antibodies <1 IU/mL (<=1)
== END 2022-03-15 16:22 | disposition home or self-care (01) ==
LOC: ANHLAB 16:24
PROVIDERS: PCP Internal Medicine; Visit Provider Internal Medicine
DX: R79.89 Other specified abnormal findings of blood chemistry (principal)
CPT/HCPCS: 36415; 84432; 84439; 84443; 86800

== ENCOUNTER 2022-03-25 17:56 | Emergency (ER) | payer OTHER, SELFPAY ==
[2022-03-25 18:10] VITALS: BP 132/74; PULSE 100; RESP 18; TEMP 37; O2SAT 100
--- NOTE | 2022-03-25 18:25 | ED.SKABFB ---
HPI - Skin/Abscess/Foreign Bdy General Chief complaint: Skin/Abscess/Foreign Body Stated complaint: Pain in lower leg, possible inf. on stomach Time Seen by Provider: 03/25/22 18:15 Source: patient Mode of arrival: ambulatory Limitations: no limitations History of Present Illness HPI narrative: Zuri is a 51-year-old female patient presenting to the clinic today with complaints of right leg pain and possible skin infection on her stomach. She reports the leg pain is been ongoing x1 week and the skin infection has been over the last few days. She denies any fever or chills. She does have a history of DVT and PEs in the past. She was on Coumadin prior but they just switched her to Xarelto a couple months ago per patient. She reports that the pain is throbbing mostly at night and she has pain behind her knee Related Data Home Medications Medication Instructions Recorded Confirmed clonazepam 2 mg tablet 2 mg PO DAILY 10/08/19 03/25/22 pravastatin 20 mg tablet 20 mg PO DAILY 10/08/19 03/25/22 venlafaxine 25 mg tablet 150 mg PO DAILY 09/01/20 03/25/22 lisdexamfetamine 70 mg capsule 70 mg PO DAILY 01/27/22 03/25/22 (Vyvanse) rivaroxaban 20 mg tablet (Xarelto) 20 mg PO DAILY 01/27/22 03/25/22 ziprasidone HCl 20 mg capsule 20 mg PO BID 01/27/22 03/25/22 Allergies Allergy/AdvReac Type Severity Reaction Status Date / Time Penicillins Allergy Intermediate Hives, Verified 03/25/22 18:25 yeast infection latex Allergy rash, Verified 03/25/22 18:25 swelling carbamazepine AdvReac Severe Loss of Verified 03/25/22 18:25 Consciousness Review of Systems Review of Systems: Pertinent positives per HPI. Patient denies any fever, chills, rash, headache, visual changes, dizziness, cough, runny nose, sore throat, shortness of breath, chest pain, palpitations, nausea, vomiting, diarrhea, constipation, abdominal pain, or any urinary issues. [facility] Past Medical History Medical History Anxiety Arthritis of carpometacarpal (CMC) joint of left thumb Essential (primary) hypertension History of CVA (cerebrovascular accident) Hyperlipidemia Osteoarthritis of left shoulder Recurrent falls Surgical History Surgical History H/O: section History of cholecystectomy History of gastric surgery Family History Family History Sibling Hypertension Mother Family history of thyroid disease Hypertension Social History Social History Smoking packs per day: 1 Smoking cigarettes per day: 20.0 Years smoked: 25 Smoking pack-years: 25.00 Smoking status: Current every day smoker Second hand tobacco smoke exposure: No Smoking end date: 08/01/06 Alcohol intake: never Substance use: never Gender identity (if verbalized by the patient): Female Spiritual care concerns: No Comments At the time of my signature, I reviewed and agree with the nursing past medical, surgical, social, and family history. There is no relevant family history pertinent to the patient complaint. Exam Narrative: General: Well-developed, well nourished, in no apparent distress Head: Normocephalic, atraumatic. Cardio: Regular rate and rhythm, s1 and s2 normal, no murmur appreciated. Resp: Clear to auscultation bilaterally, no rhonchi, rales, wheezing or rubs. Musculoskeletal: No deformity, tender to palpation to the posterior knee and to the posterior right calf, positive Homans' sign, grossly normal range of motion, muscle strength strong and equal, peripheral pulse strong, no edema, no cyanosis, limping gait and station Skin: Intact, dry, pink, fluctuant abscess approximately 3 x 3 cm to the fold of the lower abdomen, redness and swelling with mild tenderness to palpation Course
== END 2022-03-25 18:37 | disposition short-term general hospital (02) ==
PROVIDERS: Emergency Provider Nurse Practitioner Family; PCP Internal Medicine
DX: L02.211 Cutaneous abscess of abdominal wall (principal); M79.661 Pain in right lower leg; I10 Essential (primary) hypertension; Z86.73 Personal history of transient ischemic attack (TIA), and cerebral infarction without residual deficits; E78.5 Hyperlipidemia, unspecified; M19.012 Primary osteoarthritis, left shoulder; Z87.891 Personal history of nicotine dependence; M18.9 Osteoarthritis of first carpometacarpal joint, unspecified; F41.9 Anxiety disorder, unspecified; Z79.4 Long term (current) use of insulin; Z86.718 Personal history of other venous thrombosis and embolism; Z86.711 Personal history of pulmonary embolism
CPT/HCPCS: 99212; G0463

== ENCOUNTER 2022-03-25 18:51 | Emergency (ER) | payer OTHER, SELFPAY ==
--- NOTE | ~2022-03-25 | XR_ITS ---
EXAMINATION: XR hip RT 2V w AP pelvis DATE: 03/25/2022 20:03 INDICATION: Right hip pain TECHNIQUE: Anteroposterior view of the pelvis and anteroposterior and frog-leg lateral views of the r ight hip were obtained. COMPARISON: None. FINDINGS: Alignment is normal. No fracture or suspected avascular necrosis. Bilateral hip joint spaces appear r elatively preserved. Mild bilateral sacroiliac osteoarthritis. Soft tissues are unremarkable. IMPRESSION: 1. Normal right hip with no acute osseous abnormality. Reviewed, dictated and finalized at location [facility].
--- NOTE | ~2022-03-25 | XR_ITS ---
EXAMINATION: XR knee RT 3V DATE: 03/25/2022 20:03 INDICATION: Right knee pain TECHNIQUE: Anteroposterior, oblique, sunrise and crosstable lateral views of the right knee were obta ined COMPARISON: None. FINDINGS: Alignment is normal. No fracture. Joint spaces appear normal on nonweightbearing imaging. Mild subar ticular cystic changes at the ileal side of the lateral patellar facet suggesting overlying high-grad e patellar chondromalacia. No joint effusion/layering lipohemarthrosis. Soft tissues are unremarkable . IMPRESSION: 1. Subarticular cystic changes suggesting overlying high-grade chondral malacia the medial side of th e lateral patellar facet. Reviewed, dictated and finalized at location [facility]. IMPRESSION: 1. Subarticular cystic changes suggesting overlying high-grade chondral malacia the medial side of the lateral patellar facet.
--- NOTE | ~2022-03-25 | XR_ITS ---
EXAMINATION: XR lumbar spine 2-3V DATE: 03/25/2022 20:03 INDICATION: Low back pain TECHNIQUE: Anteroposterior and lateral views of the lumbar spine, and cone-down lateral view of the l umbosacral junction were obtained. COMPARISON: 09/17/2013 FINDINGS: Alignment is normal. Vertebral body heights are normal. Mild disc height loss at L3-L4. Mild lumbar f acet osteoarthritis and mild osteoarthritis at the bilateral sacroiliac joints. Cholecystectomy clips in right upper quadrant. IMPRESSION: 1. Mild lumbar spondylosis. Reviewed, dictated and finalized at location [facility]. IMPRESSION: 1. Mild lumbar spondylosis.
[2022-03-25 19:02] VITALS: BP 126/81; PULSE 97; RESP 18; TEMP 36.7; O2SAT 100
--- NOTE | 2022-03-25 19:13 | PC.NURSE ---
Report received from BERTHA Fowler. Awaiting PCP evaluation.
--- NOTE | 2022-03-25 19:33 | ED.GENADULT ---
HPI - General Adult General Chief complaint: Extremity Problem,Nontraumatic Stated complaint: R LEG PAIN, SENT FROM [facility] Time Seen by Provider: 03/25/22 19:25 History of Present Illness HPI narrative: Patient is a 51-year-old female who presents to emergency department with chief complaint of right lower extremity pain. Patient reports that she has history of a DVT and PEs and is currently on an anticoagulant. The patient states has been compliant with her medications but reports for the last week she has had pain in her right lower extremity the patient states that it starts in the right gluteal region and radiates down her leg the patient states that the burning and tingling pain patient states the pain is worse with movement. The patient states he is also noticed some small draining abscesses on her abdominal wall patient denies history of diabetes patient reports no fever no trauma. The patient reports no chest pain or shortness of breath Related Data Home Medications Medication Instructions Recorded Confirmed clonazepam 2 mg tablet 2 mg PO DAILY 10/08/19 03/25/22 pravastatin 20 mg tablet 20 mg PO DAILY 10/08/19 03/25/22 venlafaxine 25 mg tablet 150 mg PO DAILY 09/01/20 03/25/22 lisdexamfetamine 70 mg capsule 70 mg PO DAILY 01/27/22 03/25/22 (Vyvanse) rivaroxaban 20 mg tablet (Xarelto) 20 mg PO DAILY 01/27/22 03/25/22 ziprasidone HCl 20 mg capsule 20 mg PO BID 01/27/22 03/25/22 Allergies Allergy/AdvReac Type Severity Reaction Status Date / Time Penicillins Allergy Intermediate Hives, Verified 03/25/22 18:25 yeast infection latex Allergy rash, Verified 03/25/22 18:25 swelling carbamazepine AdvReac Severe Loss of Verified 03/25/22 18:25 Consciousness Review of Systems Review of Systems: A 10 system review of systems was completed on the patient and is negative except for what is stated in the HPI. Nursing and ancillary documentation was reviewed. [facility] Past Medical History Medical History Anxiety Arthritis of carpometacarpal (CMC) joint of left thumb Essential (primary) hypertension History of CVA (cerebrovascular accident) Hyperlipidemia Osteoarthritis of left shoulder Recurrent falls Surgical History Surgical History H/O: section History of cholecystectomy History of gastric surgery Family History Family History Sibling Hypertension Mother Family history of thyroid disease Hypertension Social History Social History Smoking packs per day: 1 Smoking cigarettes per day: 20.0 Years smoked: 25 Smoking pack-years: 25.00 Smoking status: Current every day smoker Second hand tobacco smoke exposure: No Smoking end date: 08/01/06 Alcohol intake: never Substance use: never Gender identity (if verbalized by the patient): Female Spiritual care concerns: No Exam Narrative: GENERAL: Well-appearing, well-nourished, and in no acute distress. HEAD: Normocephalic, atraumatic. EYES: PERRLA and EOMI. ENT: Nares clear, no rhinorrhea or epistaxis. Mucous membranes moist. NECK: Supple. CHEST: Clear to auscultation. No respiratory distress. HEART: Regular rate and rhythm. No murmur heard. Normal peripheral pulses. ABDOMEN: Soft, nontender, nondistended, normal active bowel sounds. There are 2 small ulcerations present on the abdominal wall. There is no purulent drainage minimal surrounding erythema EXTREMITIES: Normal range of motion. No edema. Intact dorsalis pedis pulse on the right intact popliteal pulse on the right there is tenderness to palpation of the right SI joint SKIN: Warm, dry, no rash. NEURO: No focal deficits. Alert and oriented x3. PSYCH: Normal mood and affect. Course Elizabeth
[2022-03-25 19:55] LABS: Basophils Percent Auto 0.4 % (0.2-1.2); Eosinophils Percent Auto 0.1 % (0-4.4); Hematocrit 39.5 % (37.0-47.0); Hemoglobin 13.1 g/dL (12.0-15.0); Immature Granulocyte Absolute 0.04 K/mm3 (0.00-0.031); Immature Granulocyte Percent A 0.4 % (0-0.5); Lymphocytes Percent Auto 26.9 % (18.3-44.2); Mean Corpuscular HGB Conc 33.2 g/dl (32-36); Mean Corpuscular Hemoglobin 29.2 pg (26-34); Mean Platelet Volume 9.6 fl (7.4-10.4); Monocytes Absolute Auto 0.6 K/mm3 (0.1-0.6); Monocytes Percent Auto 6.5 % (2.6-8.5); Neutrophils Absolute Auto 5.9 K/mm3 (1.3-6.7); Neutrophils Percent Auto 65.7 % (45.5-73.1); Platelet Count Result 187 k/mm3 (150-375); Red Blood Count 4.49 M/mm3 (4.2-5.4); Red Cell Distribution Width 12.5 % (11.5-14.5); White Blood Count 8.9 K/mm3 (4.5-10.0)
[2022-03-25 20:06] LABS: Partial Thromboplastin Time 26.4 SECONDS (22.3-36.8)
[2022-03-25 20:09] LABS: Lactic Acid Reflex 0.9 mmol/L (0.7-2.0)
[2022-03-25 20:10] LABS: Anion Gap 8 mmol/L (8-16); Blood Urea Nitrogen 13 mg/dL (7-17); Calcium 8.3 mg/dL (8.4-10.2); Carbon Dioxide 29 mmol/L (22-30); Chloride 102 mmol/L (98-107); Estimated CRCL calculation 84 ml/min; Estimated Glomerular Filt Rate > 60; Glucose 94 mg/dL (65-110); Magnesium 2.1 mg/dL (1.6-2.3); Potassium 3.4 mmol/L (3.4-5.0); Sodium 139 mmol/L (137-145)
[2022-03-25 20:17] LABS: Appearance Urine Clear (Clear); Bilirubin Urine Negative (Negative); Blood Urine Negative (Negative); Color Urine Yellow (Yellow); Glucose Urine UA Negative (Negative); Ketones Urine Trace mg/dL (Negative); Leukocyte Esterase Ur Negative LEU/UL (Negative); Nitrate Urine Negative (Negative); Protein Urine Negative (Negative); Specific Grav Ur >= 1.030 (1.001-1.035); Urobilinogen Urine 0.2 mg/dL (<2.0)
[2022-03-25 20:19] LABS: Bacteria Urine Trace /hpf; Mucus Urine Moderate /lpf; RBC Urine 0-2 /hpf (0-2); Squamous Epithelial Cell Urine Rare /hpf (Few); WBC Urine 0-3 /hpf
[2022-03-25 20:20] LABS: Add Urine Microscopic? YES
[2022-03-25] MEDS: KETOROLAC 30 MG/ML VIAL (*BKC) IV PUSH (20:40)
[2022-03-25] MEDS: MORPHINE SULFATE (*CRX) 4 MG/ML INJ IV PUSH (20:40)
--- NOTE | 2022-03-25 20:42 | PC.NURSE ---
Addendum entered by Jamie Styles RN 03/25/22 21:37: Pt did not have US, had xrays. Original Note: Pt returns from US. IV initiated, meds given IVP.
[2022-03-25 21:12] VITALS: BP 128/75; PULSE 74; RESP 18; O2SAT 100
[2022-03-25] MEDS: HYDROmorphone HCL INJ (*CRX) 1 MG/ML SYR IV PUSH (21:29)
[2022-03-25 21:48] VITALS: BP 133/76; PULSE 88; RESP 20; O2SAT 99
== END 2022-03-25 21:49 | disposition home or self-care (01) ==
PROVIDERS: Emergency Provider Emergency Medicine; PCP Internal Medicine
DX: M54.31 Sciatica, right side (principal); L03.311 Cellulitis of abdominal wall; I10 Essential (primary) hypertension; E78.5 Hyperlipidemia, unspecified; M19.012 Primary osteoarthritis, left shoulder; M18.9 Osteoarthritis of first carpometacarpal joint, unspecified; Z86.73 Personal history of transient ischemic attack (TIA), and cerebral infarction without residual deficits; Z86.711 Personal history of pulmonary embolism; Z86.718 Personal history of other venous thrombosis and embolism; Z79.01 Long term (current) use of anticoagulants; Z87.891 Personal history of nicotine dependence; R93.6 Abnormal findings on diagnostic imaging of limbs; M47.816 Spondylosis without myelopathy or radiculopathy, lumbar region
CPT/HCPCS: 36415; 72100; 73502; 73562; 73564; 80048; 81001; 81003; 83605; 83735; 85025; 85610; 85730; 96374; 96375; 99284; J1170; J1885; J2270

== ENCOUNTER 2022-03-26 07:08 | Outpatient (CLI) | payer OTHER, SELFPAY ==
--- NOTE | ~2022-03-26 | US_ITS ---
EXAMINATION: US venous doppler LE RT DATE: 03/26/2022 07:39 INDICATION: Right lower limb pain. TECHNIQUE: Grayscale ultrasound images without and with compression and Doppler ultrasound images of the right lower extremity veins were obtained. COMPARISON: Ultrasound 12/03/2016 FINDINGS: The visualized portions of right common femoral vein, profunda (deep) femoral vein, femoral vein, pop liteal vein, peroneal veins, posterior tibial veins, and greater saphenous vein outflow are patent. T here is a 4.6 x 0.6 x 1.4 cm fluid collection in the patient's area of concern lateral to the patella . IMPRESSION: 1. No deep venous thrombosis. 2. 4.6 x 0.6 x 1.4 cm fluid collection in the patient's area of concern lateral to the patella, which may be bursitis or a chronic hematoma. Reviewed, dictated and finalized at location A.
== END 2022-03-26 07:09 | disposition home or self-care (01) ==
PROVIDERS: PCP Internal Medicine; Visit Provider Internal Medicine
DX: M79.661 Pain in right lower leg (principal)
CPT/HCPCS: 93971

== ENCOUNTER 2022-07-21 16:18 | Emergency (ER) | payer OTHER, SELFPAY ==
--- NOTE | ~2022-07-21 | XR_ITS ---
Clinical Indication: Chest pain PA and lateral views of the chest: Comparison: 05/29/2020 Findings: The lungs are clear, without evidence of focal consolidation or pleural effusion. Cardiome diastinal silhouette is within normal limits. Bones and soft tissues are unremarkable. Impression: Normal chest. Reviewed, dictated and finalized at location . 2 DEVELOPER Impression: Normal chest.
--- NOTE | 2022-07-21 16:19 | ECG_ITS ---
Measurements Intervals [place] Rate: 105 P: 67 VA: 120 QRS: 28 QRSD: 84 T: 61 QT: 366 QTc: 485 Interpretive Statements SINUS TACHYCARDIA POSSIBLE LEFT ATRIAL ENLARGEMENT [-0.1mV P WAVE IN V1/V2] ABNORMAL RHYTHM ECG COMPARED TO ECG 06/04/2021 15:36:14 SINUS TACHYCARDIA NOW PRESENT Electronically Signed On 07-21-2022 18:15:21 [employer]TERN CH[employer]DER by Jovanni Jane M.D.
[2022-07-21 16:27] VITALS: BP 141/84; PULSE 104; RESP 16; TEMP 36.6; O2SAT 100
[2022-07-21 16:44] LABS: Basophils Percent Auto 0.4 % (0.2-1.2); Eosinophils Percent Auto 0.1 % (0-4.4); Hematocrit 42.5 % (37.0-47.0); Hemoglobin 13.8 g/dL (12.0-15.0); Immature Granulocyte Absolute 0.02 K/mm3 (0.00-0.031); Immature Granulocyte Percent A 0.3 % (0-0.5); Lymphocytes Absolute Auto 2.51 K/mm3 (0.9-3.2); Mean Corpuscular HGB Conc 32.5 g/dl (32-36); Mean Corpuscular Hemoglobin 29.3 pg (26-34); Mean Corpuscular Volume 90.2 fl (80-100); Mean Platelet Volume 9.9 fl (7.4-10.4); Monocytes Absolute Auto 0.6 K/mm3 (0.1-0.6); Monocytes Percent Auto 7.9 % (2.6-8.5); Neutrophils Percent Auto 56.3 % (45.5-73.1); Platelet Count Result 193 k/mm3 (150-375); Red Blood Count 4.71 M/mm3 (4.2-5.4); Red Cell Distribution Width 12.8 % (11.5-14.5); White Blood Count 7.2 K/mm3 (4.5-10.0)
[2022-07-21 16:54] LABS: Alanine Aminotransferase 20 U/L (6-35); Albumin Level 4.3 g/dL (3.5-5.1); Alkaline Phosphatase 91 U/L (38-126); Anion Gap 7 mmol/L (8-16); Aspartate Amino Transferase 26 U/L (14-36); Bilirubin,Total 0.3 mg/dL (0.2-1.3); Blood Urea Nitrogen 12 mg/dL (7-17); Calcium 8.9 mg/dL (8.4-10.2); Carbon Dioxide 31 mmol/L (22-30); Chloride 105 mmol/L (98-107); Estimated CRCL calculation 75 ml/min; Estimated Glomerular Filt Rate > 60; Glucose 114 mg/dL (65-110); Lipase 304 U/L (23-300); Potassium 3.4 mmol/L (3.4-5.0); Sodium 143 mmol/L (137-145)
[2022-07-21 16:56] LABS: INR 0.9
[2022-07-21 16:57] LABS: Partial Thromboplastin Time 25.3 SECONDS (22.3-36.8)
[2022-07-21 17:06] LABS: Troponin I < 0.012 ng/mL (0.000-0.034)
[2022-07-21 19:58] LABS: Troponin I < 0.012 ng/mL (0.000-0.034)
[2022-07-21 20:05] VITALS: BP 123/84; PULSE 95; RESP 14; O2SAT 100
--- NOTE | 2022-07-21 21:12 | ED.CHESTPAIN ---
HPI - Chest Pain General Chief Complaint: Chest Pain Stated Complaint: chest pain Time Seen by Provider: 07/21/22 21:11 Source: patient and RN notes reviewed Mode of arrival: ambulatory Limitations: no limitations and clinical condition History of Present Illness HPI narrative: Patient is 52 years old white female presents to the ED with left chest pain started 4 days ago, intermittent, worse with breathing and certain movement. Also worse when she tried to lift left upper extremity up. Better remaining still. History of hypertension, deep vein thrombosis on Xarelto, positive smoking, no family history of coronary disease. Related Data Home Medications Medication Instructions Recorded Confirmed clonazepam 2 mg tablet 2 mg PO DAILY 10/08/19 07/14/22 pravastatin 20 mg tablet 20 mg PO DAILY 10/08/19 07/14/22 venlafaxine 25 mg tablet 150 mg PO DAILY 09/01/20 07/14/22 lisdexamfetamine 70 mg capsule 70 mg PO DAILY 01/27/22 07/14/22 (Vyvanse) rivaroxaban 20 mg tablet (Xarelto) 20 mg PO DAILY 01/27/22 07/14/22 ziprasidone HCl 20 mg capsule 20 mg PO BID 01/27/22 07/14/22 Allergies Allergy/AdvReac Type Severity Reaction Status Date / Time Penicillins Allergy Intermediate Hives, Verified 07/14/22 16:53 yeast infection latex Allergy rash, Verified 07/14/22 16:53 swelling carbamazepine AdvReac Severe Loss of Verified 07/14/22 16:53 Consciousness Review of Systems Review of Systems: All systems reviewed & are unremarkable except as noted in HPI and below PMFSH Past Medical History Medical History Anxiety Arthritis of carpometacarpal (CMC) joint of left thumb Essential (primary) hypertension History of CVA (cerebrovascular accident) Hyperlipidemia Osteoarthritis of left shoulder Recurrent falls Surgical History Surgical History H/O: section History of cholecystectomy History of gastric surgery Family History Family History Sibling Hypertension Mother Family history of thyroid disease Hypertension Social History Social History Smoking packs per day: 1 Smoking cigarettes per day: 20.0 Years smoked: 25 Smoking pack-years: 25.00 Smoking status: Current every day smoker Second hand tobacco smoke exposure: No Smoking end date: 08/01/06 Alcohol intake: never Substance use: never Lack of Transportation: No Lack of Food: Never True Current Housing: I Have Housing Concerned About Future Housing: No Difficulty Paying Gas/Electric Bills: No Difficulty Paying for Meds: No Education: High School Diploma/GED Difficulty w/ Childcare or Family Care: No Gender identity (if verbalized by the patient): Female Spiritual care concerns: No Exam Narrative: General appearance: Well-developed, well-nourished Skin: Normal color Head: Normocephalic, nontraumatic Eyes: Clear conjunctiva ENT: Oropharynx normal, ears normal, nose normal Neck: Supple, nontender Chest and respiratory: Airway patent, no respiratory distress, no accessory muscle use. Severe tenderness left chest with light palpation, no bruising, swelling or rash. Severe left chest pain with left upper extremity movement. Heart: Regular rate/rhythm Abdomen: Soft, nontender, no organomegaly, quiet bowel sounds Vascular: Normal peripheral pulses, normal capillary refill. Musculoskeletal: Normal range of motion, nontender back Neurologic: Alert and oriented ?3, PROGRAM DIRECTOR/MUSIC DIRECTOR is normal as tested, no gross motor deficit Course
[2022-07-21] MEDS: ACETAMINOPHEN 500 MG TABLET 1000 MG PO (21:32)
[2022-07-21] MEDS: traMADol HCL (*CRX) 50 MG TABLET PO (21:33)
== END 2022-07-21 22:07 | disposition home or self-care (01) ==
LOC: ANHED 21:44
PROVIDERS: Emergency Medicine; Emergency Provider Emergency Medicine; PCP Internal Medicine
DX: R07.89 Other chest pain (principal); I10 Essential (primary) hypertension; E78.5 Hyperlipidemia, unspecified; M19.012 Primary osteoarthritis, left shoulder; F41.9 Anxiety disorder, unspecified; Z86.718 Personal history of other venous thrombosis and embolism; Z86.73 Personal history of transient ischemic attack (TIA), and cerebral infarction without residual deficits; F17.210 Nicotine dependence, cigarettes, uncomplicated; Z79.01 Long term (current) use of anticoagulants; R00.0 Tachycardia, unspecified; R94.31 Abnormal electrocardiogram [ECG] [EKG]; M18.9 Osteoarthritis of first carpometacarpal joint, unspecified
CPT/HCPCS: 36415; 71046; 80053; 83690; 84484; 85025; 85610; 85730; 93005; 99284; A9270

== ENCOUNTER 2022-11-12 14:04 | Outpatient (CLI) | payer OTHER, SELFPAY ==
--- NOTE | ~2022-11-12 | US_ITS ---
EXAMINATION: US carotid duplex BI DATE: 11/12/2022 14:45 INDICATION: Nontoxic thyroid nodule. Abnormal CT examination. TECHNIQUE: Grayscale, color Doppler, and pulsed Doppler images of the cervical carotid arteries were obtained. The degree of vessel stenosis is placed in one of the following categories: normal, <50%, 5 0-69%, >=70% but less than near-occlusion, near-occlusion, or total occlusion. Note that percent sten osis relative to normal distal artery lumen diameter is indirectly measured from velocity measurement s as described by Chapito, et al. Radiology 2003; 229:340-346. Notes: Normal: Peak systolic velocity <125 centimeters/sec and no plaque <50%. Peak systolic velocity <125 ( EDV <40; ICA/CCA PSV ratio <2.0; used these factors only a tandem lesions or low cardiac output or co ntralateral disease) 50-69 %: PSV 125-230 (EDV 40-100; ratio 2-4) >= 70% but less than near occlusion: PSV greater than 230 (EDV > 100; ratio> 4.0) Near Occlusion: PSV that is variable; markedly narrowed lumen Occlusion: Absent flow on color/spectral Doppler and no lumen on zacarias scale. COMPARISON: None. FINDINGS: RIGHT: The right common carotid artery (CCA) peak systolic velocity (PSV) is 93 cm/s. The right internal car otid artery (ICA) PSV is 76 cm/s. The right ICA end-diastolic velocity (EDV) is 31 cm/s. The right IC A/CCA PSV ratio is 0.8. The external carotid artery (ECA) PSV is 72 cm/s. There is antegrade flow in the right vertebral artery. LEFT: The left CCA PSV is 95 cm/s. The left ICA PSV is 112 cm/s. The left ICA EDV is 41 cm/s. The left ICA/ CCA PSV ratio is 1.2. The ECA PSV is 67 cm/s. There is antegrade flow in the left vertebral artery. IMPRESSION: 1. Less than 50% stenosis in the right internal carotid artery by sonographic criteria. 2. Less than 50% stenosis in the left internal carotid artery by sonographic criteria. Reviewed, dictated and finalized at location B. IMPRESSION: 1. Less than 50% stenosis in the right internal carotid artery by sonographic c riteria. 2. Less than 50% stenosis in the left internal carotid artery by sonographic cr yessicaia.
--- NOTE | ~2022-11-12 | US_ITS ---
EXAMINATION: US thyroid DATE: 11/12/2022 14:42 INDICATION: Nontoxic single thyroid nodule. TECHNIQUE: Multiple ultrasound images of the thyroid were obtained. COMPARISON: None. FINDINGS: The right thyroid lobe measures 6.0 x 2.5 x 2.9 cm. The left thyroid lobe measures 5.5 x 2.3 x 3.3 c m. In the left thyroid lobe, there is a 1.8 cm solid, very hypoechoic, wider than tall nodule with s mooth margin without echogenic foci (TI-RADS TR4). There are multiple subcentimeter nodules in the th yroid. In the right thyroid lobe, there is an 11 mm solid, very hypoechoic, wider than tall nodule wi th smooth margin without echogenic foci (TR4). In the right thyroid lobe, there is a 1.3 cm solid, ve ry hypoechoic, wider than tall nodule with smooth margin and macrocalcification (TR5). IMPRESSION: 1. Multinodular goiter. Ultrasound-guided fine-needle aspiration of 2 nodules is recommended. Reviewed, dictated and finalized at location A. IMPRESSION: 1. Multinodular goiter. Ultrasound-guided fine-needle aspiration of 2 nodules i s recommended.
== END 2022-11-12 14:05 | disposition home or self-care (01) ==
PROVIDERS: PCP Internal Medicine; Visit Provider Internal Medicine
DX: E04.2 Nontoxic multinodular goiter (principal); I65.23 Occlusion and stenosis of bilateral carotid arteries; R93.1 Abnormal findings on diagnostic imaging of heart and coronary circulation
CPT/HCPCS: 76536; 93880

== ENCOUNTER 2022-11-25 14:51 | Outpatient (CLI) | payer OTHER, SELFPAY ==
--- NOTE | 2022-11-25 | ECHO_ITS ---
Patient Info Name: Zuri Limon Age: 52 years : 1970 Gender: Female Ht: 65 in Wt: 224 lbs BSA: 2.21 m2 HR: 91 bpm BP: 134 / 83 mmHg Heart Rhythm: Sinus Rhythm Technical Quality: Good Exam Date: 11/25/2022 3:18 PM Exam Location: [facility] Patient Status: Outpatient Admit Date: 11/25/2022 Staff Ordering Physician: Dl Phillips MD Dry Cell Tester: Nicolasa Comer RCS Attending Provider: Dl Phillips MD Referring Physician: Alan CHONG; Exam Type: CA echo doppler color flow Study Info Indications - non rheumatic aortic valve stenosis /insuffienncy Complete two-dimensional, color flow and Doppler transthoracic echocardiogram is performed. Summary 1. Complete two-dimensional, color flow and Doppler transthoracic echocardiogram is performed. 2. Left ventricular chamber dimension is normal. 3. Left ventricular systolic function is normal, estimated at 60-65%. 4. There is mildly increased left ventricular wall thickness. 5. The left ventricular diastolic function is grade I diastolic dysfunction. 6. Right ventricular systolic function is normal. 7. There is moderate-severe aortic valve calcification. 8. There is moderate aortic valve stenosis with a peak velocity of 302 cm/s, mean gradient of 22 mmHg, and aortic valve area of 1.2 cm2. 9. There is at least moderate aortic valve regurgitation, which could be underestimated due to the eccentricity of the jet. 10. There is mild mitral valve regurgitation. 11. There is mild tricuspid valve regurgitation. Left Ventricle Left ventricular chamber dimension is normal. Left ventricular systolic function is normal, estimated at 60-65%. There is mildly increased left ventricular wall thickness. The left ventricular diastolic function is grade I diastolic dysfunction. Right Ventricle Right ventricular chamber dimension is normal. Right ventricular systolic function is normal. Left Atria Left atrial chamber dimension is normal. Right Atria Right atrial chamber dimension is normal. Atrial Septum Intact interatrial septum visualized by color flow imaging. Aortic Valve The aortic valve is not well visualized. There is moderate aortic valve stenosis with a peak velocity of 302 cm/s, mean gradient of 22 mmHg, and aortic valve area of 1.2 cm2. There is at least moderate aortic valve regurgitation, which could be underestimated due to the eccentricity of the jet. There is moderate-severe aortic valve calcification. Pulmonic Valve The pulmonic valve is not well visualized. Mitral Valve The mitral valve has normal leaflets. There is mild mitral valve regurgitation. Tricuspid Valve The tricuspid valve leaflets are normal. There is mild tricuspid valve regurgitation. Pericardium/Pleural There is no pericardial effusion. Inferior Vena Cava Normal inferior vena cava with >50% collapse upon inspiration consistent with normal right atrial pressure, 10 mmHg. Aorta The aortic root size at the sinus of Valsalva is normal. Left Ventricular Outflow Tract Name Value Normal LVOT 2D LVOT Diameter 2.0 cm LVOT Doppler LVOT Peak Gradient 5 mmHg LVOT Mean Gradient 4 mmHg LVOT
== END 2022-11-25 14:52 | disposition home or self-care (01) ==
PROVIDERS: PCP Internal Medicine; Visit Provider Internal Medicine Cardiovascular Disease
DX: I08.3 Combined rheumatic disorders of mitral, aortic and tricuspid valves (principal); I10 Essential (primary) hypertension; Z86.711 Personal history of pulmonary embolism
CPT/HCPCS: 93306

== ENCOUNTER 2022-12-01 12:51 | Outpatient (CLI) | payer OTHER, SELFPAY ==
--- NOTE | ~2022-12-01 | US_ITS ---
EXAMINATION: US FNA w image guidance DATE: 12/01/2022 13:58 INDICATION: Multinodular goiter. TECHNIQUE: The procedure and its benefits and risks were discussed with the patient. Risks specifically discusse d included bleeding. The patient verbalized understanding of the risks and agreed to proceed. The nec k was prepped and draped in the usual sterile manner. 1% lidocaine was used for local anesthesia. F serina passes were made with a 25G needle into the lesion under ultrasound guidance. There were no imme diate complications. FINDINGS: Grayscale ultrasound images demonstrate needles advanced into a 1.8 cm nodule in left thyroid lobe fo r biopsy. The previously seen 13 mm nodule in right thyroid lobe is cystic and benign and does not ne ed a biopsy. IMPRESSION: 1. Ultrasound-guided fine needle aspiration of a left thyroid nodule. Reviewed, dictated and finalized at location A.
== END 2022-12-01 12:52 | disposition home or self-care (01) ==
PROVIDERS: PCP Internal Medicine; Visit Provider Internal Medicine Endocrinology, Diabetes & Metabolism
DX: E04.2 Nontoxic multinodular goiter (principal)
CPT/HCPCS: 10005; 88173; 88305

== ENCOUNTER 2022-12-21 13:57 | Day surgery (SDC) | payer OTHER, SELFPAY ==
[2022-12-21 13:29] VITALS: BMI 38.5
[2022-12-22] VITALS (19 sets, daily range): BP systolic 105–144; BP diastolic 8–94; PULSE 91–99; RESP 10–18; TEMP 36.8; O2SAT 96–100; BMI 38.9
--- NOTE | 2022-12-22 08:40 | WPDHPUPDATE1 ---
History and Physical Update Update Date/Time: 12/22/22 08:40 History and Physical has been reviewed, including an updated exam of the patient. There are NO changes in the patient's condition. Risks, benefits, and alternatives have been discussed and questions answered. Patient agrees to proceed with procedure.
--- NOTE | 2022-12-22 08:40 | WPDMODSED ---
Moderate Sedation Note-Pt Data Patient Data Diagnosis: Aortic regurgitation Present Complaint: none Procedure to be performed/Plan: transesophageal echocardiogram Allergies Allergy/AdvReac Type Severity Reaction Status Date / Time latex Allergy Intermediate rash, Verified 12/22/22 07:42 swelling Penicillins Allergy Intermediate Hives, Verified 12/22/22 07:42 yeast infection carbamazepine AdvReac Severe Loss of Verified 12/22/22 07:42 Consciousness Home Medications Medication Instructions Recorded Confirmed Type acetaminophen 500 mg capsule 500 mg PO Q6H PRN pain #20 caps 06/04/21 12/21/22 Rx varenicline 1 mg tablet 1 mg PO BID #56 tabs 01/10/22 12/22/22 Rx lisdexamfetamine 70 mg capsule 70 mg PO DAILY 01/27/22 12/22/22 History (Vyvanse) rivaroxaban 20 mg tablet (Xarelto) 20 mg PO DAILY 01/27/22 12/21/22 History ziprasidone HCl 20 mg capsule See Rx Instructions .Route .COMPLEX 01/27/22 12/22/22 History omeprazole 20 mg capsule,delayed 20 mg PO DAILY #30 caps 07/21/22 12/22/22 Rx release ramipril 10 mg capsule (Altace) 10 mg PO DAILY #90 caps 07/27/22 12/21/22 Rx alprazolam 1 mg tablet 2 mg PO QHS 10/13/22 12/21/22 History multivitamin 1 tablet PO DAILY 10/13/22 12/22/22 History pravastatin 20 mg tablet 40 mg PO DAILY 10/13/22 12/21/22 History venlafaxine 150 mg 300 mg PO DAILY 10/13/22 12/22/22 History capsule,extended release 24 hr famotidine 20 mg tablet (Pepcid) 20 mg PO BID 12/22/22 12/22/22 History Current Medications: see outpatient notes. Sedation/Anesthesia: No previous sedation/anesthesia problems (including family history). [facility] Past Medical History Medical History Anxiety Arthritis of carpometacarpal (CMC) joint of left thumb Arthritis of left knee Essential (primary) hypertension History of CVA (cerebrovascular accident) Hyperlipidemia Osteoarthritis of left shoulder Recurrent falls Surgical History Surgical History H/O: section History of cholecystectomy History of gastric surgery Family History Family History Sibling Hypertension Mother Family history of thyroid disease Hypertension Social History Social History Smoking packs per day: 0.4 Smoking cigarettes per day: 8.0 Years smoked: 25 Smoking pack-years: 10.00 Smoking status: Current some day smoker Tobacco type: cigarettes Second hand tobacco smoke exposure: No Smoking end date: 08/01/06 Alcohol intake: current Drinks per week: 1 Substance use: never Substance use type: does not use Lack of Transportation: No Lack of Food: Never True Current Housing: I Have Housing Concerned About Future Housing: No Difficulty Paying Gas/Electric Bills: No Difficulty Paying for Meds: No Education: High School Diploma/GED Difficulty w/ Childcare or Family Care: No Living arrangements: with family Gender identity (if verbalized by the patient): Female Spiritual care concerns: No Mod Sed Physical Exam Physical Exam Pre Procedural Exam: Normal: Appearance, Eyes, Ears, Nose, Neck ( supple, normal range of motion), Throat ( posterior hypopharynx clear, nonerythematous), Airway ( normal anatomy no obstruction), Lungs ( Clear to auscultation bilaterally), Heart Size, Heart Rate, Heart Rhythm, Neuro Exam, Abdomen, Liver, Extremities and Skin Hours since solid foods: 12 Hours since liquid intake: 12 Mallampati Classification: class III Internal Medicine - PN: Obj Da Vital Signs Vital Signs: Vital Signs - 24 hr 12/22/22 07:49 Temperature 36.8 C Pulse Rate 96 Respiratory Rate 16 Blood Pressure 123/8 L Pulse Oximetry 98 Oxygen Delivery Room Air ASA Classification/Sedation ASA Classification/Sedation ASA Class: IV Emergent:
--- NOTE | 2022-12-22 08:42 | WPDTEECHO ---
[facility] TransEsophageal Echocardiogram Date of procedure: 12/22/22 Procedure Type: transesophageal echocardiogram Diagnosis: aortic regurgitation Indications: aortic regurgitation Image Quality: acceptable Findings: Brief history present illness: Patient is a pleasant 52-year-old female with a history of obesity, history of DVT / PE, history of stroke, hypertension, history of CONNIE and aortic regurgitation complaints of exertional dyspnea with a surface echocardiogram showing moderate eccentric aortic regurgitation and moderate aortic stenosis referred for transesophageal echocardiography for further evaluation severity of aortic regurgitation. Procedure in detail: After verbal and written informed consent was obtained the patient risks, benefits, and alternatives explained in detail the patient agreed to proceed with the plan of care as outlined above. The patient was evaluated at bedside in the [facility] procedure room. The posterior oropharynx, neck, and jaw angle all within normal limits on examination. Lungs were clear to auscultation. See pre-sedation note for further details The patient was then placed in the appropriate 30 to 45 degree angle supine position at a slight left lateral decubitus position. Patient was monitored throughout the study with telemetry, oxygen saturation, end-tidal CO2 monitoring, blood pressure, heart rate, and respirations. The posterior hypopharynx was then locally anesthetized using repeated administration of Hurricaine spray as well as gargled viscous lidocaine. After local anesthetic of the posterior hypopharynx was achieved and the oral bite block placed, moderate sedation was administered. After confirmation of adequate moderate sedation, the transesophageal echocardiogram probe was advanced through the oral bite block into the posterior hypopharynx and into the esophagus easily and without complication. Multiple, multiplanar echocardiographic images were obtained in multiple standard re- projections. Pulsed wave, continuous-wave, and color-flow Doppler were utilized in conjunction with this study. At the conclusion of the study, the transesophageal echocardiogram probe was removed easily and without complication. The patient tolerated the procedure well without difficulty. Patient was in sinus rhythm throughout the study. Moderate Sedation/Anesthesia administration: Patient reports no prior problems with sedation/anesthesia. Please see pre-sedation noted for physical examination documentation. As noted above, after adequate local anesthesia of the posterior hypopharynx was achieved, a total of 6 mg intravenous Versed and a total of 175 mcg intravenous Fentanyl in multiple divided doses was administered for moderate sedation. Sedation start time was 0849 and end time was 0941 for a total intra-service/procedure face-face time of 52 minutes. Sedation was administered by a qualified/certified observer Leeann Jain RN under my supervision with intra-procedure [id number] observation and management throughout the entirety of the procedure. There were no other issues or complications and patient tolerated the procedure well. See post-anesthesia documentation. FINDINGS: LEFT VENTRICLE: Size and systolic function were within normal limits without wall motion abnormalities with ejection fraction of 60% with mild LVH. RIGHT VENTRICLE: Size and systolic function within normal limits. LEFT ATRIUM: Mild enlargement. RIGHT ATRIUM: Normal size. INTERATRIAL SEPTUM: Interatrial septum is anatomically normal without evidence of shunt with color-flow Doppler nor with injection of agitated saline. MITRAL VALVE: Mitral valve is anatomically normal with preserved leaflet excursion and mild regurgitation. AORTIC VALVE: The aortic valve appears to be a and anatomic 3 leaflet structure with a focal approximately 1 cm heterogenous calcified mass at the commissure between the left and right coronary cus
[2022-12-22 10:41] LABS: Basophils Percent Auto 0.3 % (0.2-1.2); Eosinophils Percent Auto 0.1 % (0-4.4); Hematocrit 42.2 % (37.0-47.0); Hemoglobin 13.9 g/dL (12.0-15.0); Immature Granulocyte Absolute 0.03 K/mm3 (0.00-0.031); Immature Granulocyte Percent A 0.4 % (0-0.5); Lymphocytes Absolute Auto 1.82 K/mm3 (0.9-3.2); Lymphocytes Percent Auto 25.9 % (18.3-44.2); Mean Corpuscular HGB Conc 32.9 g/dl (32-36); Mean Corpuscular Hemoglobin 29.1 pg (26-34); Mean Corpuscular Volume 88.3 fl (80-100); Mean Platelet Volume 9.6 fl (7.4-10.4); Monocytes Absolute Auto 0.4 K/mm3 (0.1-0.6); Monocytes Percent Auto 6.3 % (2.6-8.5); Neutrophils Absolute Auto 4.7 K/mm3 (1.3-6.7); Platelet Count Result 181 k/mm3 (150-375); Red Blood Count 4.78 M/mm3 (4.2-5.4); Red Cell Distribution Width 12.3 % (11.5-14.5)
[2022-12-22 10:54] LABS: CRP < 0.5 mg/dL (<1.0)
[2022-12-22 11:27] LABS: Erythrocyte Sedimentation Rate 18 mm/hr (0-20)
== END 2022-12-22 11:10 | disposition home or self-care (01) ==
PROVIDERS: PCP Internal Medicine; Visit Provider Internal Medicine Cardiovascular Disease
PROC: (CPT 93312; principal; 2022-12-22 08:30)
DX: I08.0 Rheumatic disorders of both mitral and aortic valves (principal); R06.02 Shortness of breath; Z86.718 Personal history of other venous thrombosis and embolism; I10 Essential (primary) hypertension; Z79.01 Long term (current) use of anticoagulants; E66.9 Obesity, unspecified; Z68.38 Body mass index [BMI] 38.0-38.9, adult
CPT/HCPCS: 36415; 85025; 85652; 86140; 87040; 93312; 93320; 93325; J2250; J2310; J3010; J7040

== ENCOUNTER 2023-06-07 00:33 | Day surgery (SDC) | payer OTHER, SELFPAY ==
[2023-06-03 10:48] VITALS: BMI 41.2
--- NOTE | 2023-06-03 10:54 | SUR.PREOP ---
Patient called regarding upcoming procedure. Message left on pt's voicemail regarding prep and appointment times. Call back number given.
[2023-06-07 06:54] VITALS: BP 115/79; PULSE 100; RESP 18; TEMP 36.1; O2SAT 98
[2023-06-07] MEDS: LACTATED RINGERS 1,000 ML 150 ML IV CONT (07:05)
--- NOTE | 2023-06-07 08:02 | PM.HPGS ---
History of Present Illness History of Present Illness Consent: Risks, benefits, and alternatives have been discussed and questions answered. Patient agrees to proceed with procedure. Chief complaint: abdominal distension (gaseous), constipation Narrative: Zuri Limon is a 52 year old female Presents for colonoscopy. Patient has rather vague abdominal complaints alternating bowel habits tendency towards constipation. She has difficulty swallowing she attributes this to mouth sores. Patient recently had positive ASCA antibodies that were elevated suspicious for possible inflammatory bowel disease. For these reasons colonoscopy an EGD recommended. Review of Systems Review of Systems: Review of systems noncontributory. [facility] Past Medical History Medical History Abnormal laboratory test Anxiety Arthritis of carpometacarpal (CMC) joint of left thumb Arthritis of left knee Bloating Constipation Essential (primary) hypertension History of CVA (cerebrovascular accident) Hyperlipidemia Mouth sore Osteoarthritis of left shoulder Recurrent falls Surgical History Surgical History H/O: section History of cholecystectomy History of gastric surgery Family History Family History Sibling Hypertension Mother Family history of thyroid disease Hypertension Social History Social History Smoking packs per day: 1.5 Smoking cigarettes per day: 30.0 Years smoked: 7 Smoking pack-years: 10.50 Smoking status: Current every day smoker Tobacco type: cigarettes Second hand tobacco smoke exposure: No Smoking end date: 08/01/06 Additional smoking assessment comments: CHANTIX CURRENTLY DOWN TO 6 CIG. A DAY- Alcohol intake: current Drinks per week: 1 Substance use: never Substance use type: does not use Lack of Transportation: No Lack of Food: Never True Current Housing: I Have Housing Concerned About Future Housing: No Difficulty Paying Gas/Electric Bills: No Difficulty Paying for Meds: No Education: High School Diploma/GED Difficulty w/ Childcare or Family Care: No Living arrangements: with family Occupation/Education: occupation Additional occupation/education comments: office work Gender identity (if verbalized by the patient): Female Spiritual care concerns: No Meds Home Medications and Allergies Home Medications Medication Instructions Recorded Confirmed Type varenicline 1 mg tablet 1 mg PO BID #56 tabs 01/10/22 06/03/23 Rx rivaroxaban 20 mg tablet (Xarelto) 20 mg PO HS 01/27/22 06/03/23 History ziprasidone HCl 20 mg capsule See Rx Instructions .Route .COMPLEX 01/27/22 06/03/23 History alprazolam 1 mg tablet 2 mg PO QHS 10/13/22 06/03/23 History multivitamin 1 tablet PO DAILY 10/13/22 06/03/23 History venlafaxine 150 mg 300 mg PO DAILY 10/13/22 06/03/23 History capsule,extended release 24 hr ramipril 10 mg capsule (Altace) 10 mg PO DAILY #90 caps 01/01/23 06/03/23 Rx lisdexamfetamine 70 mg capsule 70 mg PO DAILY 05/03/23 06/03/23 History (Vyvanse) Fortify Probiotic 50 Plus 1 tab-cap BYMOUTH DAILY 06/03/23 06/03/23 History linaclotide 145 mcg capsule 145 mcg PO DAILY 06/03/23 06/03/23 History (Linzess) pravastatin 40 mg tablet 40 mg PO HS 06/03/23 06/03/23 History Allergies Allergy/AdvReac Type Severity Reaction Status Date / Time carbamazepine Allergy Severe Loss of Verified 06/07/23 06:51 Consciousness latex Allergy Intermediate rash, Verified 06/07/23 06:51 swelling Penicillins Allergy Intermediate Hives, Verified 06/07/23 06:51 yeast infection Vital Signs Vital Signs - 24 hr 06/07/23 06:54 Temperature 97 F L Pulse Rate 100 Respiratory Rate 18 Blood Pressure 115/79 Pulse Oximetry 98 O
--- NOTE | 2023-06-07 08:04 | P.PNAN_ITS ---
Anes - Initial Pre Proc Eval Procedure: Operation Date: 06/07/23 08:00 Proposed Procedures p Esophagogastroduodenoscopy & Colonoscopy - Niko Talley MD Date/Time: 06/07/23 08:04 Surgeon: Niko Talley MD Pre Op Diagnosis: abdominal distension (gaseous), constipation Patient Data Age: 52 Gender: F Height: 1.63 m Weight: 107 kg Last Vital Signs Temp 97 F L 06/07/23 06:54 Pulse 100 06/07/23 06:54 Resp 18 06/07/23 06:54 BP 115/79 06/07/23 06:54 Pulse Ox 98 06/07/23 06:54 O2 Del Method Room Air 06/07/23 06:54 Allergies Allergy/AdvReac Type Severity Reaction Status Date / Time carbamazepine Allergy Severe Loss of Verified 06/07/23 06:51 Consciousness latex Allergy Intermediate rash, Verified 06/07/23 06:51 swelling Penicillins Allergy Intermediate Hives, Verified 06/07/23 06:51 yeast infection Home Medications Medication Instructions Recorded Confirmed Type varenicline 1 mg tablet 1 mg PO BID #56 tabs 01/10/22 06/03/23 Rx rivaroxaban 20 mg tablet (Xarelto) 20 mg PO HS 01/27/22 06/03/23 History ziprasidone HCl 20 mg capsule See Rx Instructions .Route .COMPLEX 01/27/22 06/03/23 History alprazolam 1 mg tablet 2 mg PO QHS 10/13/22 06/03/23 History multivitamin 1 tablet PO DAILY 10/13/22 06/03/23 History venlafaxine 150 mg 300 mg PO DAILY 10/13/22 06/03/23 History capsule,extended release 24 hr ramipril 10 mg capsule (Altace) 10 mg PO DAILY #90 caps 01/01/23 06/03/23 Rx lisdexamfetamine 70 mg capsule 70 mg PO DAILY 05/03/23 06/03/23 History (Vyvanse) Fortify Probiotic 50 Plus 1 tab-cap BYMOUTH DAILY 06/03/23 06/03/23 History linaclotide 145 mcg capsule 145 mcg PO DAILY 06/03/23 06/03/23 History (Linzess) pravastatin 40 mg tablet 40 mg PO HS 11/03/23 11/03/23 History Patient hx anesthesia problems: none Family hx anesthesia problems: none Results Review: All pre-operative results and documents have been reviewed as part of the pre- operative evaluation. [facility] Past Medical History Medical History Abnormal laboratory test Anxiety Arthritis of carpometacarpal (CMC) joint of left thumb Arthritis of left knee Bloating Constipation Essential (primary) hypertension History of CVA (cerebrovascular accident) Hyperlipidemia Mouth sore Osteoarthritis of left shoulder Recurrent falls Surgical History Surgical History H/O: section History of cholecystectomy History of gastric surgery Family History Family History Sibling Hypertension Mother Family history of thyroid disease Hypertension Social History Social History Smoking packs per day: 1.5 Smoking cigarettes per day: 30.0 Years smoked: 7 Smoking pack-years: 10.50 Smoking status: Current every day smoker Tobacco type: cigarettes Second hand tobacco smoke exposure: No Smoking end date: 08/01/06 Additional smoking assessment comments: CHANTIX CURRENTLY DOWN TO 6 CIG. A DAY- Alcohol intake: curre
--- NOTE | 2023-06-07 08:22 | SUR.OPER ---
EGD start 819 end 822, Colonoscopy start 827
[2023-06-07 08:52] VITALS: BP 124/86; PULSE 97; RESP 18; O2SAT 98
[2023-06-07 09:02] VITALS: BP 136/88; PULSE 96; RESP 20; O2SAT 98
[2023-06-07 09:12] VITALS: BP 125/84; PULSE 98; RESP 20; O2SAT 99
== END 2023-06-07 09:30 | disposition home or self-care (01) ==
PROVIDERS: PCP Internal Medicine; Visit Provider Internal Medicine Gastroenterology
PROC: 0DJ08ZZ Inspection of Upper Intestinal Tract, Via Natural or Artificial Opening Endoscopic (ICD-10-PCS; CPT 43235; principal; 2023-06-07 08:00)
DX: D12.2 Benign neoplasm of ascending colon (principal); K63.5 Polyp of colon; K64.8 Other hemorrhoids; R19.5 Other fecal abnormalities; K59.00 Constipation, unspecified; K21.00 Gastro-esophageal reflux disease with esophagitis, without bleeding; I10 Essential (primary) hypertension; E78.5 Hyperlipidemia, unspecified; F41.9 Anxiety disorder, unspecified; Z86.73 Personal history of transient ischemic attack (TIA), and cerebral infarction without residual deficits; F17.210 Nicotine dependence, cigarettes, uncomplicated; E66.01 Morbid (severe) obesity due to excess calories; Z68.41 Body mass index [BMI] 40.0-44.9, adult; Z79.01 Long term (current) use of anticoagulants
CPT/HCPCS: 45385; 43239; 87081; 88305; J2405; J2704; J3010; J7120

== ENCOUNTER 2023-06-29 08:09 | Outpatient (CLI) | payer OTHER, SELFPAY ==
--- NOTE | ~2023-06-29 | XR_ITS ---
EXAMINATION: XR small bowel follow through DATE: 06/29/2023 10:32 INDICATION: Abdominal distention. TECHNIQUE: Oral contrast was administered, and a time course of radiographs of the abdomen was obtain ed. Fluoroscopy of the small bowel was performed. Fluoroscopy exposure time was 0.1 minutes. The tota l number of images was 12. COMPARISON: None. FINDINGS: There are no dilated loops of bowel. There is no abnormal mass or stricture. The terminal ileum is no rmal. Transit time from the stomach to proximal colon was approximately 1 hour 45 minutes. Surgical c lips in the right upper quadrant are likely from cholecystectomy. IMPRESSION: 1. Normal small bowel series. Reviewed, dictated and finalized at location A. ETING SUMMER INTERN
== END 2023-06-29 08:10 | disposition home or self-care (01) ==
PROVIDERS: PCP Internal Medicine; Visit Provider Internal Medicine Gastroenterology
DX: R14.0 Abdominal distension (gaseous) (principal)
CPT/HCPCS: 74250

== ENCOUNTER 2023-07-13 07:49 | Outpatient (CLI) | payer OTHER, SELFPAY ==
--- NOTE | ~2023-07-13 | NM_ITS ---
EXAM: NM gastric emptying study DATE: 07/13/2023 12:15 INDICATION: Abdominal distention (gaseous). TECHNIQUE: A gastric emptying study was performed using the methodology of Aparna JAMA, et al. J Nucl Med 2007; 48:568-572. The patient was given a meal consisting of 2 scrambled eggs labeled with 0.996 mCi Tc-99m sulfur colloid, 2 slices of toast, two packages of jam, and approximately 120 mL of water . Simultaneous anterior and posterior 1-min images of the abdomen were obtained with the patient supi ne at multiple time points over a total period of 4 hours. The geometric mean of anterior and posteri or views was determined, and the percentage retention was calculated for each time point. COMPARISON: CT abdomen and pelvis 07/28/2015 FINDINGS: Gastric retention of the radiotracer-labeled meal was 34%, 22%, and 3% at the 1-hour, 2-ho ur, and 4-hour time points, respectively. With this technique, apparent rapid gastric emptying is sug gested by <30% gastric retention at 1 hour. Delayed gastric emptying is defined by gastric retention of >90% at 1 hour, >60% retention at 2 hours, or >10% retention at 4 hours. IMPRESSION: 1. Normal gastric emptying. Reviewed, dictated and finalized at location A. LEMAN IMPRESSION: 1. Normal gastric emptying.
== END 2023-07-13 07:50 | disposition home or self-care (01) ==
PROVIDERS: PCP Internal Medicine; Visit Provider Nurse Practitioner Family
DX: K21.9 Gastro-esophageal reflux disease without esophagitis (principal); R11.0 Nausea; R14.0 Abdominal distension (gaseous)
CPT/HCPCS: 78264; A9541

== ENCOUNTER 2024-07-23 00:19 | Day surgery (SDC) | payer BC, SELFPAY ==
[2024-07-20 13:17] VITALS: BMI 40.0
[2024-07-23] VITALS (16 sets, daily range): BP systolic 121–153; BP diastolic 74–89; PULSE 90–98; RESP 14–20; TEMP 36.8–37; O2SAT 95–100
--- NOTE | 2024-07-23 | ECHO_ITS ---
Patient Info Name: Zuri Limon Age: 54 years : 1970 Gender: Female Ht: 65 in Wt: 240 lbs BSA: 2.29 m2 HR: 89 bpm BP: 134 / 93 mmHg Heart Rhythm: Sinus Rhythm Technical Quality: Good Exam Date: 07/23/2024 8:01 AM Exam Location: Echo Lab Patient Status: Outpatient Admit Date: 07/23/2024 Staff Ordering Physician: Qasim Ross MD (chaya/juana) Top Lift Trimmer: Kena Fraire RDCS Attending Provider: Qasim Ross MD (jessica) Exam Type: CA echo transesophageal Study Info Indications - Complete two-dimensional, color flow and Doppler transesophageal study is performed. Procedure Details The patient arrived in a fasting state after obtaining informed consent. The transesophageal probe was passed into the posterior pharynx, mid-esophagus, distal esophagus, and gastric fundus. Imaging was performed at multiple levels. The patient tolerated the procedure well and there were no complications. The patient was transferred out of the examination area in satisfactory condition. Summary 1. The aortic valve is bicuspid with fusion of the right and left coronary cusps. There is a considerable amount of calcification of the fused cusps. There is moderate aortic stenosis with a valve area of 1.1 cm2 by planimetry. Aortic valve doppler gradients by TTE showed a velocity of 3.4cm/2 and mean gradient of 28mmHg. There is moderate aortic regurgitation secondary to malcoaptation with a vena contract of 0.3 cm. There is no significant of diastolic flow reversal on interrogation of the aorta. Left Ventricle The left ventricle is normal in size and systolic function. Left Atria The left atrium is normal size. Right Atria The right atrium is normal size. Atrial Septum The atrial septum is normal. Atrial Appendage The left atrial appendage has no thrombus. PW velocity is 55cm/s. Aortic Valve The aortic valve is bicuspid with fusion of the right and left coronary cusps. There is a considerable amount of calcification of the fused cusps. There is moderate aortic stenosis with a valve area of 1.1 cm2 by planimetry. Aortic valve doppler gradients by TTE showed a velocity of 3.4cm/2 and mean gradient of 28mmHg. There is moderate aortic regurgitation secondary to malcoaptation with a vena contract of 0.3 cm. There is no significant of diastolic flow reversal on interrogation of the aorta. Pulmonic Valve The pulmonic valve is not well visualized. There is no color Doppler evidence of pulmonic valve regurgitation. Mitral Valve The mitral valve is normal. There is no mitral regurgitation. Tricuspid Valve The tricuspid valve is grossly normal. There is no tricuspid regurgitation. Pericardium/Pleural There is no pericardial effusion. Inferior Vena Cava Inferior vena cava is not well visualized. Aorta There is no significant atherosclerotic plaque in the visualized portions of the aorta. Left Ventricular Outflow Tract Name Value Normal LVOT 2D LVOT Diameter 2.0 cm LVOT Doppler LVOT Peak Gradient 4 mmHg LVOT Mean Gradient 2 mmHg LVOT VTI 18 cm LVOT VTI/AV VTI Ratio 0.3 LVOT Stroke Volume 57 ml LVOT CO 5.7 l/min LVOT CI 2.5 l/min/m2 Aortic Valve Name Value Normal AV 2D/MM AV Area (Planimetry) 1.1 cm2 AV Doppler AV Peak Velocity 343 cm/s AV Peak Gradient 47 mmHg AV Mean Gradient 28 mmHg AV VTI 65 cm AV Area (Cont Eq VTI) 0.9 cm2 >=3.0 AV Area (Cont Eq Michael) 0.9 cm2 AV Regurgitation 2D LVOT Area 3.1 cm2 Ventricles Name Value Normal LV Dimensions 2D/MM LVOT Diameter 2.0 cm Report Signatures
[2024-07-23 07:45] LABS: Basophils Percent Auto 0.4 % (0.2-1.2); Eosinophils Percent Auto 0.1 % (0-4.4); Immature Granulocyte Absolute 0.02 K/mm3 (0.00-0.031); Immature Granulocyte Percent A 0.3 % (0-0.5); Lymphocytes Absolute Auto 1.71 K/mm3 (0.9-3.2); Lymphocytes Percent Auto 25.6 % (18.3-44.2); Mean Corpuscular HGB Conc 33.3 g/dl (32-36); Mean Corpuscular Hemoglobin 28.6 pg (26-34); Mean Corpuscular Volume 85.7 fl (80-100); Mean Platelet Volume 10.1 fl (7.4-10.4); Monocytes Absolute Auto 0.5 K/mm3 (0.1-0.6); Monocytes Percent Auto 7.3 % (2.6-8.5); Neutrophils Absolute Auto 4.4 K/mm3 (1.3-6.7); Neutrophils Percent Auto 66.3 % (45.5-73.1); Platelet Count Result 146 k/mm3 (150-375); Red Cell Distribution Width 12.3 % (11.5-14.5); White Blood Count 6.7 K/mm3 (4.5-10.0)
[2024-07-23 07:55] LABS: Anion Gap 3 mmol/L (4-12); Blood Urea Nitrogen 11 mg/dL (7-17); Calcium 9.6 mg/dL (8.4-10.2); Carbon Dioxide 29 mmol/L (22-30); Chloride 106 mmol/L (98-107); Estimated CRCL calculation 77 ml/min; Estimated Glomerular Filt Rate > 60; Glucose 105 mg/dL (65-110); Potassium 3.5 mmol/L (3.4-5.0); Sodium 138 mmol/L (137-145)
--- NOTE | 2024-07-23 08:16 | P.SEDATION_ITS ---
Moderate Sedation Note-Pt Data Patient Data Allergies Allergy/AdvReac Type Severity Reaction Status Date / Time carbamazepine Allergy Severe Loss of Verified 07/23/24 07:32 Consciousness latex Allergy Intermediate rash, Verified 07/23/24 07:32 swelling Penicillins Allergy Intermediate Hives, Verified 07/23/24 07:32 yeast infection Home Medications ?Medication ?Instructions ?Recorded ?Confirmed ?Type varenicline 1 mg tablet 1 mg PO BID #56 tabs 01/10/22 07/23/24 Rx rivaroxaban 20 mg tablet (Xarelto) 20 mg PO HS 01/27/22 07/20/24 History ziprasidone HCl 20 mg capsule See Rx Instructions .Route .COMPLEX 01/27/22 07/23/24 History alprazolam 1 mg tablet 2 mg PO QHS 10/13/22 07/20/24 History multivitamin 1 tablet PO DAILY 10/13/22 07/23/24 History venlafaxine 150 mg 300 mg PO DAILY 10/13/22 07/23/24 History capsule,extended release 24 hr lisdexamfetamine 70 mg capsule 70 mg PO DAILY 05/03/23 07/23/24 History (Vyvanse) pravastatin 40 mg tablet 40 mg PO HS 06/03/23 07/20/24 History omeprazole 40 mg capsule,delayed 40 mg PO DAILY 3 months #90 caps 07/04/23 07/20/24 Rx release lancets 23 gauge (Accu-Chek #200 ea 07/11/24 07/12/24 Rx Safe-T-Pro) nitroglycerin 0.4 mg sublingual 0.4 mg sublingual Q5M PRN chest 07/12/24 07/20/24 Rx tablet pain #30 tabs ramipril 10 mg capsule (Altace) 10 mg PO DAILY #90 caps 07/12/24 07/20/24 Rx Current Medications: Active Medications Sodium Chloride (Normal Saline Iv) 500 mls @ 100 mls/hr IV CONT .Q5H RACHEL Sedation/Anesthesia: No previous sedation/anesthesia problems (including family history). [facility] Past Medical History Medical History (Updated 07/12/24 @ 16:22 by Feliciano Ureña, WILDLIFE BIOLOGY TECHNICIAN) Cardiac abnormality BMI 39.0-39.9,adult Nausea Abnormal laboratory test Constipation Bloating Mouth sore Arthritis of left knee Hyperlipidemia Arthritis of carpometacarpal (CMC) joint of left thumb Osteoarthritis of left shoulder Recurrent falls Anxiety Essential (primary) hypertension History of CVA (cerebrovascular accident) Surgical History Surgical History History of gastric surgery History of cholecystectomy H/O: section Family History Family History (Updated 07/12/24 @ 14:12 by TWAN Celestin) Sibling Hypertension Mother Family history of thyroid disease Hypertension A-fib Father , Parkinson's disease No problems noted. Social History Social History (Updated 07/12/24 @ 14:13 by TWAN Celestin) Smoking packs per day: 1.5 Smoking cigarettes per day: 30.0 Years smoked: 7 Smoking pack-years: 10.50 Smoking status: Current every day smoker Tobacco type: cigarettes Second hand tobacco smoke exposure: No Smoking end date: 08/01/06 Additional smoking assessment comments: CHANTIX CURRENTLY DOWN TO 6 CIG. 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[employer] Gender identity (if verbalized by the patient): Female Spiritual care concerns: No Mod Sed Physical Exam Physical Exam Pre Procedural Exam: Normal: Heart Rate and Heart Rhythm Hours since solid foods: 12 Hours since liquid intake: 12 Mallampati Classification: class III Internal Medicine - PN: Obj Da Vital Signs Vital Signs: Vital Signs - 24 hr 07/23/24 07:36 Temperature 37.0 C Pulse Rate 92 Respiratory Rate 14 Blood Pressure 132/89 Pulse Oximetry 96 Oxygen Delivery Room Air Meds/Results Medications: Active Medications Generic Name Dose Route Start Last Admin Trade Name Freq PRN Reason Stop Dose Admin Sodium Chloride 500 mls @ 100 mls/hr 07/23/24 07:00 Normal Saline Iv IV CONT .Q5H RACHEL Labs 07/23/24 07:38 07/23/24 07:38 Labs: Laboratory Results - last 24 hr 12/23/24 07:38 WBC 6.7 RBC 4.90 Hgb 14.0 Hct 42.0 MCV 85.7 MCH 28.6 MCHC 33.3 RDW 12.3 Plt Count 146 L MPV 10.1 Immature Gran % (Auto) 0.3 Neut % (Auto) 66.3 Lymph % (Auto) 25.6 [place] % (Auto) 7.3 Eos % (Auto) 0.1 Baso % (Auto) 0.4 Lymph # (Auto) 1.71 [place] # (Auto) 0.5 Eos # (Auto) 0.0 Baso # (Auto) 0.0 Abs Immat Gran (auto) 0.02 Absolute Neuts (auto) 4.4 Absolute Nucleated RBC 0.000 Nucleated RBC % 0.0 Sodium 138 Potassium 3.5 Chloride 106 Carbon Dioxide 29 Anion Gap 3 L BUN 11 Creatinine 0.90 Estim Creat Clear Calc 77 Estimated GFR > 60 Glucose 105 Calcium 9.6 ASA Classification/Sedation ASA Classification/Sedation ASA Class: III Emergent: No Risks: Risks, benefits and alternatives explained and patient/family accepted plan for sedation. Patient re-evaluated immediately prior to sedation.
--- NOTE | 2024-07-23 08:16 | WPDHPUPDATE1 ---
History and Physical Update Update Date/Time: 07/23/24 08:16 History and Physical has been reviewed, including an updated exam of the patient. There are NO changes in the patient's condition. Risks, benefits, and alternatives have been discussed and questions answered. Patient agrees to proceed with procedure.
--- NOTE | 2024-07-23 08:56 | P.PNAN_ITS ---
Anes - Initial Pre Proc Eval Procedure: Operation Date: 07/23/24 08:30 Proposed Procedures p Trans Esophageal Echo - Qasim Ross MD s Heart Cath, Right and Left - Qasim Ross MD Date/Time: 07/23/24 08:56 Surgeon: Qasim Ross MD Pre Op Diagnosis: as Patient Data Age: 54 Gender: F Height: 1.65 m Weight: 109.1 kg Last Vital Signs Temp 37.0 C 07/23/24 07:36 Pulse 92 07/23/24 07:36 Resp 14 07/23/24 07:36 BP 132/89 07/23/24 07:36 Pulse Ox 96 07/23/24 07:36 O2 Del Method Room Air 07/23/24 07:36 Allergies Allergy/AdvReac Type Severity Reaction Status Date / Time carbamazepine Allergy Severe Loss of Verified 07/23/24 07:32 Consciousness latex Allergy Intermediate rash, Verified 07/23/24 07:32 swelling Penicillins Allergy Intermediate Hives, Verified 07/23/24 07:32 yeast infection Home Medications ?Medication ?Instructions ?Recorded ?Confirmed ?Type varenicline 1 mg tablet 1 mg PO BID #56 tabs 01/10/22 07/23/24 Rx rivaroxaban 20 mg tablet (Xarelto) 20 mg PO HS 01/27/22 07/20/24 History ziprasidone HCl 20 mg capsule See Rx Instructions .Route .COMPLEX 01/27/22 07/23/24 History alprazolam 1 mg tablet 2 mg PO QHS 10/13/22 07/20/24 History multivitamin 1 tablet PO DAILY 10/13/22 07/23/24 History venlafaxine 150 mg 300 mg PO DAILY 10/13/22 07/23/24 History capsule,extended release 24 hr lisdexamfetamine 70 mg capsule 70 mg PO DAILY 05/03/23 07/23/24 History (Vyvanse) pravastatin 40 mg tablet 40 mg PO HS 06/03/23 07/20/24 History omeprazole 40 mg capsule,delayed 40 mg PO DAILY 3 months #90 caps 07/04/23 07/20/24 Rx release lancets 23 gauge (Accu-Chek #200 ea 07/11/24 07/12/24 Rx Safe-T-Pro) nitroglycerin 0.4 mg sublingual 0.4 mg sublingual Q5M PRN chest 07/12/24 07/20/24 Rx tablet pain #30 tabs ramipril 10 mg capsule (Altace) 10 mg PO DAILY #90 caps 07/12/24 07/20/24 Rx Laboratory Tests 07/23/24 07:38 WBC 6.7 K/mm3 (4.5-10.0) RBC 4.90 M/mm3 (4.2-5.4) Hgb 14.0 g/dL (12.0-15.0) Hct 42.0 % (37.0-47.0) MCV 85.7 fl (80-100) MCH 28.6 pg (26-34) MCHC 33.3 g/dl (32-36) RDW 12.3 % (11.5-14.5) Plt Count 146 L k/mm3 (150-375) MPV 10.1 fl (7.4-10.4) Immature Gran % (Auto) 0.3 % (0-0.5) Neut % (Auto) 66.3 % (45.5-73.1) Lymph % (Auto) 25.6 % (18.3-44.2) [place] % (Auto) 7.3 % (2.6-8.5) Eos % (Auto) 0.1 % (0-4.4) Baso % (Auto) 0.4 % (0.2-1.2) Lymph # (Auto) 1.71 K/mm3 (0.9-3.2) [place] # (Auto) 0.5 K/mm3 (0.1-0.6) Eos # (Auto) 0.0 K/mm3 (0-0.3) Baso # (Auto) 0.0 K/mm3 (0.0-0.1) Abs Immat Gran (auto) 0.02 K/mm3 (0.00-0.031) Absolute Neuts (auto) 4.4 K/mm3 (1.3-6.7) Absolute Nucleated RBC 0.000 K/mm3 (0.0-0.012) Nucleated RBC % 0.0 % (0.0-0.2) Sodium 138 mmol/L (137-145) Potassium 3.5 mmol/L (3.4-5.0) Chloride 106 mmol/L (98-107) Carbon Dioxide 29 mmol/L (22-30) Anion Gap 3 L mmol/L (4-12) BUN 11 mg/dL (7-17) Creatinine 0.90 mg/dL (0.7-1.0) Estim Creat Clear Calc 77 ml/min Estimated GFR > 60 (59 - ) Glucose 105 mg/dL (65-110) Calcium 9.6 mg/dL (8.4-10.2) Patient hx anesthesia problems: none Family hx anesthesia problems: none Results Review: All pre-operative results and documents have been reviewed as part of the pre- operative evaluation. [facility] Past Medical History Medical History (Updated 07/12/24 @ 16:22 by Feliciano Ureña APRN) Cardiac abnormality BMI 39.0-39.9,adult Nausea Abnormal laboratory test Constipation Bloating Mouth sore Arthritis of left knee Hyperlipidemia Arthritis of carpometacarpal (CMC) joint of left thumb Osteoarthritis of left shoulder Recurrent falls Anxiety Essential (primary) hypertension History of CVA (cerebrovascular accident) Surgical History Surgical History History of gastric surgery History of cholecystectomy H/O: section Family History Family History (Updated 07/12/24 @ 14:12 by TWAN Celestin) Sibling Hypertension Mother Family history of thyroid disease Hypertension A-fib Father , Parkinson's disease No problems noted. Social History Social History (Updated 07/12/24 @ 14:13 by TWAN Celestin) Smoking packs per day: 1.5 Smoking cigarettes per day: 30.0 Years smoked: 7 Smoking pack-years: 10.50 Smoking status: Current every day smoker Tobacco type: cigarettes Second hand tobacco smoke exposure: No Smoking end date: 08/01/06 Additional smoking assessment comments: CHANTIX CURRENTLY DOWN TO 6 CIG. 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 Informed Consent: The patient's anesthetic plan and its attendant risks and benefits were discussed with the patient/family/POA. Questions were solicited and answers provided to the satisfaction of the patient/family/POA.
[2024-07-23] MEDS: SODIUM CHLORIDE 0.9% IV 1,000 ML 125 ML IV CONT (11:05)
--- NOTE | 2024-07-23 13:13 | P.PCNCC_ITS ---
Cardiac Cath Procedure Note Date of procedure:: 07/23/24 Performing physician:: CATHETERIZATION LABORATORY REPORT Procedure Date: 07/23/2024 Referring Physician: Dr. Boykin Anesthesia: Versed and Fentanyl were ordered and given in my presence at 0948, procedure ended at 1020. Supervision of nurse, Farhad Gutierrez monitored moderate sedation with 150mcg Fentanyl was provided for 32 minutes. Pre-op Diagnosis: Aortic Stenosis Post-op Diagnosis: Aortic Stenosis Procedure(s): Left heart catheterization with coronary angiography Right Heart Catheterization Access Site: Right radial artery Right brachial vein Right femoral vein Brief History and Clinical Indications: All risks, benefits and alternatives to left heart catheterization with or without percutaneous coronary intervention was discussed at length with the patient. Risk of complications including but not limited to bleeding, infection, arrhythmia, stroke, worsening kidney function, blood loss, groin hematoma, limb loss, emergency coronary artery bypass grafting, and even were discussed with the patient and all questions were answered. The patient understood and wished to proceed. Time out called, patient name, date of , medical record number, allergies, procedure performed, identify Indigo Mixer, patient and staff member concurred with accurate data, procedure carried on. Findings: LEFT HEART CATHETERIZATION FINDINGS: 1. Left main: The left main coronary artery is widely patent without any significant obstructive disease. 2. Left anterior descending: The LAD and the diagonal branches have mild luminal irregularities without any significant obstructive angiographic disease. 3. Left circumflex: The left circumflex artery and the main marginal branches are normal. 4. Right coronary artery: The RCA is the dominant vessel and is normal 5. Left ventricle: was not crossed given significant calcium on aortic valve 6. Opening AO pressure 157/82 and closing AO pressure 142/81 RIGHT HEART CATHETERIZATION FINDINGS: Pressures (mmHg): RA: 5 RV: 34/6 PA: 25/11 (17) PCWP: 11 (v 16) Saturations (%): PA: 69.8% Arterial: 90% CO/CI: Delfina: 3.3/7.0 Description of Procedure: Informed consent signed and placed in the chart. Patient transferred to hospital laboratory technician room. Prepped and draped in usual sterile fashion. 2% lidocaine injected subcutaneously in right brachial area. A 7 Citizen [place] sheath was unable to be advanced into the vessel and this approach was abandoned and manual pressure was held. 2% lidocaine was then injected subcutaneously into the right groin area. Femoral vein was accessed using micropuncture technique. 7-FR sheath placed. 7F [place] catheter was advanced into the right side of the heart chambers and pressures were measured. Hemostasis was achieved by Mynx device. 2% lidocaine injected subcutaneously in right wrist area. 22-gauge venipuncture catheter used to access the right radial artery with the Seldinger technique. 6- FR slender sheath placed in right radial artery. Nitroglycerin 200mcg, Verapamil 2.5mg, and Heparin 5000U was given intraarterial through the sheath. J wire advanced under fluoroscopy 5F TIG diagnostic catheter engaged Left Main Coronary Artery. 5F TIG diagnostic catheter was unable to engage Right Coronary Artery and this was exchanged out for a 5F JR4 diagnostic catheter that engaged the RCA. Multiple orthogonal angiogram obtained and reviewed Given the known severe aortic calcification, the aortic valve was not crossed. Hemostasis was achieved by application of TR band. Assessment: Nonobstructive CAD Normal right heart filling pressures Post Operative Condition: Stable No significant blood loss Disposition: Home Plan: Follow up with SHRAVAN Ross Interventional Cardiology
== END 2024-07-23 15:30 | disposition home or self-care (01) ==
PROVIDERS: PCP Internal Medicine; Visit Provider Internal Medicine
PROC: (CPT 93312; principal; 2024-07-23 08:30)
PROC: (CPT 93566; 2024-07-23 08:30)
DX: I35.0 Nonrheumatic aortic (valve) stenosis (principal); I25.10 Atherosclerotic heart disease of native coronary artery without angina pectoris; I10 Essential (primary) hypertension; E78.5 Hyperlipidemia, unspecified; Z86.73 Personal history of transient ischemic attack (TIA), and cerebral infarction without residual deficits; F17.210 Nicotine dependence, cigarettes, uncomplicated; E66.01 Morbid (severe) obesity due to excess calories; Z68.41 Body mass index [BMI] 40.0-44.9, adult
CPT/HCPCS: 36415; 80048; 85025; 93312; 93320; 93325; 93456; C1760; C1769; C1887; C1894; G0269; J1200; J1644; J2003; J2250; J2305; J2371; J2704; J2919; J3010; J7030; J7040

== ENCOUNTER 2024-08-31 14:02 | Outpatient (CLI) | payer BC, SELFPAY ==
--- NOTE | ~2024-08-31 | US_ITS ---
EXAMINATION: US carotid duplex BI DATE: 08/31/2024 18:05 CONFERENCE SERVICES DIRECTOR INDICATION: Aortic stenosis TECHNIQUE: Grayscale, color Doppler, and pulsed Doppler images of the cervical carotid arteries were obtained. The degree of vessel stenosis is placed in one of the following categories: normal, <50%, 50-69%, >=7 0% but less than near-occlusion, near-occlusion, or total occlusion. Note that percent stenosis relative to normal distal artery lumen diameter is indirectly measured fro m velocity measurements as described originally by Chapito, et al. Radiology 2003; 229:340-346 and upda roberto by José Miguel Cantrell et al STROKE 2012;43(3);915-921. COMPARISON: 11/12/2022 FINDINGS: There is mild atherosclerosis of both carotid arteries. Peak systolic velocity (in cm/s) is detailed below RIGHT: Right common carotid artery (CCA): 73 cm/s. Right internal carotid artery (ICA) PSV: 80 cm/s. Right ICA end-diastolic velocity (EDV): 19 cm/s. Right ICA/CCA PSV ratio is 1.1. Right external carotid artery (ECA): 64cm/s. There is antegrade flow in the right vertebral artery. LEFT: Left common carotid artery (CCA): 58) cm/s. Left internal carotid artery (ICA) PSV: 67 cm/s. Left ICA end-diastolic velocity (EDV): 29 cm/s. Left ICA/CCA PSV ratio is 1.1. Left external carotid artery (ECA): 50cm/s. There is antegrade flow in the left vertebral artery. IMPRESSION: 1. Less than 50% stenosis in the right internal carotid artery. 2. Less than 50% stenosis in the left internal carotid artery. Reviewed, dictated and finalized at location A. ERENCE SERVICES DIRECTOR
--- NOTE | ~2024-08-31 | MR_ITS ---
EXAMINATION: MR brain/brain stem wo/w con DATE: 08/31/2024 14:42 INDICATION: Stroke. Dizziness. TECHNIQUE: Magnetic resonance imaging (MRI) of the brain and brainstem was performed without and with 20 mL MultiHance intravenous contrast. 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 There is no intracranial hemorr марина, acute infarction, or abnormal intracranial mass lesion. There are scattered areas of nonspecifi c increased T2-weighted signal intensity in the cerebral white matter, which is within normal limits for the patient's age. The ventricles are normal in size. There is mucosal thickening in the paranasa l sinuses. The orbits are normal. There is a small left mastoid effusion. IMPRESSION: 1. 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 Reviewed, dictated and finalized at location A. NE DIESEL MECHANIC
== END 2024-08-31 14:03 | disposition home or self-care (01) ==
LOC: MICIMG 14:03
PROVIDERS: PCP Internal Medicine; Visit Provider Thoracic Surgery (Cardiothoracic Vascular Surgery)
DX: Q23.0 Congenital stenosis of aortic valve (principal); Q23.81 Bicuspid aortic valve; Z86.73 Personal history of transient ischemic attack (TIA), and cerebral infarction without residual deficits
CPT/HCPCS: 70553; 93880; A9577

== ENCOUNTER 2024-11-05 14:29 | Outpatient (CLI) | payer BC, SELFPAY ==
--- NOTE | ~2024-11-05 | MM_ITS ---
EXAMINATION: MM screening [facility] BI w dillon HISTORY: Screening TECHNIQUE: Craniocaudal and mediolateral oblique 3-D tomosynthesis images were obtained and synthetic 2-D images were generated. CAD analysis was submitted and interpreted. COMPARISON: Comparison to multiple prior studies sequentially, with oldest reviewed study dated 07/02. BREAST PARENCHYMAL COMPOSITION: Not Dense: The breasts are almost entirely fatty. FINDINGS: There is no evidence of suspicious mass, calcification, or architectural distortion to sugg est malignancy in either breast. There has been no suspicious interval change. IMPRESSION: 1. No mammographic evidence of malignancy. 2. Recommend routine screening mammography in one year. BI-RADS Category 1: Negative Reviewed, dictated and finalized at location A.
--- OUTSIDE RECORDS SUMMARY | 2024-11-05 16:44 | XMS_ITS | Encounter Summary ---
Author Organization [facility] Healthcare Address [address] [place] [address] Care Team Providers Care Senior Benefits Specialist Name Role Phone Perry Boykin MD Primary Care Provider [phone] Dl Phillips MD Unavailable [phone] Severino Aden MD Unavailable [phone] Geovany Wong DO Primary Care Provider [phone] Talya Boucher MD Unavailable [phone] Qasim Ross MD Unavailable Encounter Details Date Type Department Care Team (Late st Contact Info) Description 07/23/2024 Orders Only [facility] [place] [facility] [place] Management [address] [place] [id number] Qasim Ross MD [address] [place] [id number] Social History Tobacco Use Types Packs/Day Years Used Date Smoking Tobacco: Every Day Cigarettes 0.5 25 Passive Smoke Exposure: Yes Smokeless Tobacco: Never Alcohol Use Standard Drinks/Week Comments Yes 1 (1 standard drink = 0.6 oz pur e alcohol) seldom AUDIT-C Answer Date Recorded Q1: How often do you have a drink containing alcohol? Never 01/05/2022 Q2: How many drinks containi ng alcohol do you have on a typical day when you are drinking? Patient does not drink Q3: How often do you have si x or more drinks on one occasion? 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 Gender Identity Not on file Sexual Orientation Not on file documented as of this encounter Plan of Treatment Not on file documented as of this encounter Procedures Procedure Name Priority Date/Time Associated Diagnosis Comments CARDIOLOGY DOCUMENT SCAN 07/23/2024 documented in this encounter Results * Cardiology Document Scan (07/23/2024) Anatomical Region Laterality Modality Other Qasim Ross MD CV CARDIAC SERVICES PROCEDURES E dited Result - Final documented in this encounter Visit Diagnoses Not on filedocumented in this encounter Care Teams Senior Benefits Specialist Relationship Specialty Start Date End Date Perry Boykin MD [address] [place] [address] PCP - General 10/29/16 09/05/24 Geovany Wong DO [address] [place] [address] PCP - General Internal Medicine 09/06/24 Dl Phillips MD [address] [place] [address] Referring Physician Cardiology 12/23/22 Severino Aden MD [address] [place] [address] Consulting Physician Cardiothoracic Surgery 12/23/22 Talya Boucher MD [id number] [place] [address] Surgeon Cardiothoracic Surgery 09/08/24 Qasim Ross MD [address] [address] Consulting Physician Cardiology 09/08/24 documented as of this encounter
--- OUTSIDE RECORDS SUMMARY | 2024-11-05 16:44 | XMS_ITS | Encounter Summary ---
Author Organization [facility] Healthcare Address [address] [place] [address] Care Team Providers Care Life Management Teacher Name Role Phone Dl Phillips MD Unavailable [phone] Severino Aden MD Unavailable [phone] Geovany Wong DO Primary Care Provider [phone] Talya Boucher MD Unavailable [phone] Qasim Ross MD Unavailable Encounter Details Date Type Department Care Team (Late st Contact Info) Description 09/11/2024 [facility] Post Discharge Follow up phone call [facility] [address] [place] [address] Shagufta Ureña, BERTHA Social History Tobacco Use Types Packs/Day Years Used Date Smoking Tobacco: Every Day Cigarettes 0.3 25 Passive Smoke Exposure: Yes Smokeless Tobacco: Never Alcohol Use Standard Drinks/Week Comments Yes 1 (1 standard drink = 0.6 oz pur e alcohol) seldom OASIS D0700: Social Isolation Answer Da te Recorded Frequency of experiencing loneliness or isolatio n Never 09/11/2024 [facility] Utilities Answer Date Recorded In the past 12 months has [employer] electric, gas, oil, or water company threatened to shut off services in your home? No 09/06/2024 Social Connection and Isolat ion Panel [NHANES] Answer Date Recorded In a typical week, how many times do you talk on the phone with family, friends, or neighbors? More than three times a week 09/06/2024 How often do you get togethe r with friends or relatives? More than three times a week 09/06/2024 How often do you attend chur ch or gnosticism services? Never 09/06/2024 Do you belong to any clubs o r organizations such as jehovah's witness groups, unions, fraternal or athletic groups, or school groups? No 09/06/2024 How often do you attend meet ings of the clubs or organizations you belong to? Never 09/06/2024 Are you , , di vorced, , never , or living with a partner? 09/06/2024 AUDIT-C Answer Date Recorded Q1: How often do you have a drink containing alcohol? Never 08/24/2024 Q2: How many drinks containi ng alcohol do you have on a typical day when you are drinking? Patient does not drink Q3: How often do you have si x or more drinks on one occasion? Never 08/24/2024 Overall Financial Resource Strain (CARDIA) Answe r Date Recorded How hard is it for you to pa y for the very basics like food, housing, medical care, and heating? Not hard at all 09/06/2024 PHQ-2 Answer Date Recorded PHQ-2 Total Score (If total score is 3 or more points, staff should administer the PHQ-9) 2 05/03/2022 Hunger Vital Sign Answer Date Recorded Within the past 12 months, y ou worried that your food would run out before you got the money to buy more. Never true 09/06/19 25 Within the past 12 months, t he food you bought just didn't last and you didn't have money to get more. Never true 09/06/2024 PRAPARE - Transportation Answer Date Re corded In the past 12 months, has l ack of transportation kept you from medical appointments or from getting medications? No 12/2024 In the past 12 months, has l ack of transportation kept you from meetings, work, or from getting things needed for daily living? No 09/06/2024 Housing Stability Vital Sign Answer Prem e Recorded In the last 12 months, was t here a time when you were not able to pay the mortgage or rent on time? No 09/06/2024 In the past 12 months, how m any times have you moved where you were living? 0 09/06/2024 At any time in the past 12 m onths, were you homeless or living in a halfway (including now)? No 09/06/2024 Personal Safety Answer Date Recorded Have you ever been in or are you currently in a harmful physical or emotional relationship or is someone making you feel afraid or unsafe? 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 Gender Identity Not on file Sexual Orientation Not on file documented as of this encounter Plan of Treatment Not on file documented as of this encounter Visit Diagnoses Not on filedocumented in this encounter Care Teams Life Management Teacher Relationship Specialty Start Date End Date Geovany Wong DO [address] [place] [address] PCP - General Internal Medicine 09/06/24 Dl Phillips MD Referring Physician Cardiology 12/23/22 Severino Aden MD [address] [address] [place] [address] Consulting Physician Cardiothoracic Surgery 12/23/22 Talya Boucher MD [address] [facility] [id number] [place] [address] Surgeon Cardiothoracic Surgery 09/08/24 Qasim Ross MD [address] [place], [place] [id number] Consulting Physician Cardiology 09/08/24 documented as of this encounter
--- OUTSIDE RECORDS SUMMARY | 2024-11-05 16:45 | XMS_ITS | Clinical Summary ---
Author Organization [facility] [address] Address [address] [place] [address] Care Team Providers Care Gang Miner Name Role Phone Dl Phillips MD Unavailable Severino Aden MD Unavailable [phone] Geovany Wong DO Primary Care Provider [phone] Ze Boucher MD Unavailable [phone] Qasim Ross MD Unavailable Allergies Active Allergy Reactions Criticality Noted Date Comments Carbamazepine Unknown 01/13/2023 Latex Swelling Medium 05/03/2022 Penicillins Other (See comments) Low 04/09/2016 Yeast infections Medications ziprasidone (GEODON) 20 mg capsuleIndications :Depression associated with Bipolar Disorder 1 capsule (20 mg total) 2 (two) times a day with meals TAKE 20 MG IN THE MORNING AND 80 MG IN THE EVENING 021 Active ALPRAZolam (XANAX) 1 mg tablet 2 tablets (2 mg total) nightly 2 023 Active ramipriL (ALTACE) 10 mg capsuleIndications :hypertension Take 1 capsule (10 mg total) by mouth daily Active Vyvanse 70 mg capsuleIndications :Attention-Deficit Hyperactivity Disorder 023 Active venlafaxine XR (EFFEXOR-XR) 150 mg 24 hr capsuleIndications :major depressive disorder 2 capsules (300 mg total) daily 023 Active multivitamin capsuleIndications :Vitamin Deficiency Prevention Take 1 capsule by mouth daily Active pravastatin (PRAVACHOL) 40 mg tabletIndications: hyperlipidemia Take 1 tablet (40 mg total) by mouth daily 90 tablet 3 024 2024 Active varenicline tartrate (CHANTIX) 1 mg tabletIndications: Smoking Cessation Take 1 tablet (1 mg total) by mouth 2 (two) times a day 60 tablet 11 024 2024 Active ziprasidone (GEODON) 80 mg capsuleIndications :Depression associated with Bipolar Disorder TAKE 1 CAPSULE BY MOUTH WITH FOOD NIGHTLY FOR 90 DAYS Active acetaminophen 500 mg capsuleIndications :Pain Take 2 capsules (1,000 mg total) by mouth every 6 (six) hours Active aspirin 81 mg enteric coated tablet Take 1 tablet (81 mg total) by mouth daily 30 tablet 1 025 2024 Active furosemide (LASIX) 40 mg tablet Take 1 tablet (40 mg total) by mouth daily for 5 days 5 tablet Active Additional Information Patient not taking.Reported on 09/25/2024 metoprolol tartrate (LOPRESSOR) 25 mg immediate release tablet Take 0.5 tablets (12.5 mg total) by mouth 2 (two) times a day 30 tablet 1 025 2024 Active polyethylene glycol (MIRALAX) 17 gram/dose bulk powderIndications: constipation Take 17 g by mouth daily Active Additional Information Patient not taking.Reported on 09/25/2024 potassium chloride ER (KLOR-CON) 20 mEq CR tabletIndications: decreased potassium absorption Take 1 tablet (20 mEq total) by mouth daily for 5 days 5 tablet Active Additional Information Patient not taking.Reported on 09/25/2024 senna-docusate (PERICOLACE) 8.6-50 mgIndications:cons tipation Take 1 tablet by mouth daily for 7 days 7 tablet Active Additional Information Patient not taking.Reported on 09/25/2024 warfarin (COUMADIN) 2 mg tabletIndications: Mechanical Valve Thromboembolism Prophylaxis Take 0.5 tablets (1 mg total) by mouth daily 15 tablet 1 025 2024 Active Additional Information Patient not taking.Reported on 09/25/2024 gabapentin (NEURONTIN) 300 mg capsuleIndications :Postoperative Acute Pain Take 1 capsule (300 mg total) by mouth 3 (three) times a day for 14 days 42 capsule 025 Active Additional Information Patient not taking.Reported on 09/25/2024 warfarin (COUMADIN) 2 mg tabletIndications: VTE Prophylaxis Following Ortho Surgery Take 2 mg by mouth daily. PT TO TAKE 4MG ON 09/11/24 THEN 2MG DAILY UNTIL INR RECHECKED Indications: VTE Prophylaxis Following Ortho Surgery 025 Active warfarin (COUMADIN) 2 mg tabletIndications: Mechanical Valve Thromboembolism Prophylaxis,valve replacement Take 2 tablets by mouth daily. take 4mg daily Indications: Mechanical Valve Thromboembolism Prophylaxis, valve replacement Active traMADoL (ULTRAM) 50 mg tablet Take 1 tablet (50 mg total) by mouth every 6 (six) hours as needed for pain for up to 14 days 28 tablet 1 Active warfarin (COUMADIN) 2 mg tablet Take 2.5 tablets (5 mg total) by mouth daily 75 tablet 11 025 2025 Active Additional Information Patient not taking.Reported on 09/25/2024 naloxone (NARCAN) 4 mg/actuation spray,non-aerosol Administer 1 spray into affected nostril(s) as needed for opioid reversal or respiratory depression Call 911. Administer a single spray in one nostril. Repeat every 3 minutes as needed if no or minimal response. 1 each 1 Active omeprazole (PriLOSEC) 40 mg capsule Take 1 capsule (40 mg total) by mouth daily Active methocarbamoL (ROBAXIN) 500 mg tablet Take 1 tablet (500 mg total) by mouth 3 (three) times a day 90 tablet 025 2024 Active Problems Problem Noted Date Diagnosed Date H/O mechanical aortic valve replacement 09/25/19 Aortic stenosis, severe 09/04/2024 Aortic regurgitation due to bicuspid aortic valv e 09/04/2024 Attention deficit hyperactivity disorder Generalized anxiety disorder 08/17/2024 Recurrent major depression 08/17/2024 Severe recurrent major depre ssion without psychotic features 08/17/2024 Aortic valve stenosis 08/16/2024 Morbid (severe) obesity due to excess calories 1 Body mass index 40.0-44.9, adult (CMS/HCC) 05/13 Congenital bicuspid aortic valve 02/17/2023 Hypertrophy of adenoids 01/20/2023 Laryngopharyngeal reflux (LPR) 12/23/2022 Dysphagia 12/23/2022 Right ear pain 12/23/2022 Chronic fatigue 12/06/2022 Livedo reticularis 12/06/2022 Multinodular goiter 12/02/2022 Assessment & Plan (01/02/2023 10:47 PM CDT): Bilateral thyroid nodules , incidental finding Pt underwent left thyroid nodule FNA recent, cytology results came back benign Pt do c/o trouble painful swallowing I personally do not think its due to her thyroid gland Advised pt to see gastroenterology for further evaluation Abnormal thyroid function test 05/03/2022 Assessment & Plan (01/02/2023 10:48 PM CDT): Subtle thyroid lab abnormalities in past, repeat TFT were normal range Repeat thyroid labs today Assessment & Plan (11/01/2022 2:37 PM CDT): Reviewed pt recent thyroid lab results WNL Clinically pt euthyroid Pt symptoms cannot be explained due to her thyroid Advised pt to follow up with her PCP She is released from our care Assessment & Plan (05/03/2022 3:11 PM CDT): Reviewed pt recent thyroid lab results Subtle lab abnormalities Clinically pot euthyroid Recheck TFT at [facility] and further plans based on it Near syncope 10/15/2021 Assessment & Plan (01/05/2022 10:20 AM CDT): The patient is a 51-year-old female who had syncope and collapse likely secondary to carbamazepine. At this point her EEG has been completely unremarkable. I do not see an etiology for the syncope to suggest the need for antiepileptic medication. I will have her follow up with me as needed. This was a telemedicine visit with Austin Braxton which took place via tele doc During the visit, I was located in my office and the patient was located at home in the [facility]. The patient visit started at 10:15 a.m. and ended at 10:20 a.m.. The patient has been informed that the visit may not be secure and acknowledged the information. I have explained the option of participating in a telephone or video visit during the COVID-19 public health emergency to the patient. After being given an opportunity to ask questions about and discuss this type of visit, the patient verbally consented to proceeding with the telephone/video visit. The patient understands that this service replaces an office visit and they may be billed and/or responsible for any applicable copayments. Alex Murray MD I have explained the option of participating in a telephone or video visit during the COVID-19 public health emergency to the patient. After being given an opportunity to ask questions about and discuss this type of visit, the patient verbally consented to proceeding with the telephone/video visit. The patient understands that this service replaces an office visit and they may be billed and/or responsible for any applicable copayments. @SIGENC2@ [facility]@ Assessment & Plan (10/15/2021 8:38 AM CDT): The patient is a 51-year-old female with complaints of frequent or recurrent episodes of syncope. On exam I did not see any neurologic deficit. She does have a remote lacunar infarct of the cerebellum but does not show any evidence of ataxia on exam. Thus I think it was a silent infarct. I have seen ataxia from carbamazepine in the past so I do wonder perhaps she may have had high or possibly supratherapeutic levels during the past year. I request the records for a blood work from [facility] accordingly. She does not have any personal or family history of seizures, but obviously that is also within the differential. I will obtain an EEG accordingly. There was some concern about narcolepsy mention in the cardiology note, but I am unsure if sleep consultation has been obtained. I can order that today to rule that out as well. I did reassure the patient she does not have evidence multiple sclerosis. I will see her back after the EEG is complete. Aortic stenosis due to bicuspid aortic valve Aortic insufficiency due to bicuspid aortic valv e 06/15/2021 NSVT (nonsustained ventricular tachycardia) 11/29 History of pulmonary embolism 03/19/2019 THOMAS (dyspnea on exertion) 03/19/2019 Other chest pain 03/19/2019 Mixed dyslipidemia 03/29/2018 H/O: CVA (cerebrovascular accident) 03/29/2018 Assessment & Plan (01/05/2022 10:21 AM CDT): Patient is a remote history of stroke. She is currently on Pravachol, Xarelto, and Accupril. There is no indication that the syncopal event was cerebrovascular in etiology. I would not make any changes to her regimen. Chronic anticoagulation 01/12/2017 Chronic deep vein thrombosis (DVT) of lower extremity ([facility]) 07/28/2016 Overview (11/06/2016): Chronic deep vein thrombosis (DVT) of right lower extremity, unspecified vein Pulmonary embolism 07/28/2016 Overview (11/06/2016): Other pulmonary embolism without acute cor pulmonale Obesity with body mass index 30 or greater 07/28 Overview (11/06/2016): Obesity (BMI 35.0-39.9 without comorbidity) Deep vein thrombosis (DVT) 09/01/2015 Overview (11/06/2016): DVT (deep venous thrombosis), unspecified laterality Class 2 severe obesity due t o excess calories with serious comorbidity and body mass index (BMI) of 39.0 to 39.9 in adult 09/01/2015 Overview (11/06/2016): Morbid obesity with BMI of 50.0-59.9, adult Recurrent falls 04/29/2015 Overview (11/06/2016): Frequent falls Assessment & Plan (10/15/2021 8:34 AM CDT): The patient is a 51-year-old female with complaints of frequent or recurrent episodes of syncope. On exam I did not see any neurologic deficit. She does have a remote lacunar infarct of the cerebellum but does not show any evidence of ataxia on exam. Thus I think it was a silent infarct. I have seen ataxia from carbamazepine in the past so I do wonder perhaps she may have had high or possibly supratherapeutic levels during the past year. I request the records for a blood work from [facility] accordingly. She does not have any personal or family history of seizures, but obviously that is also within the differential. I will obtain an EEG accordingly. There was some concern about narcolepsy mention in the cardiology note, but I am unsure if sleep consultation has been obtained. I can order that today to rule that out as well. I did reassure the patient she does not have evidence multiple sclerosis. I will see her back after the EEG is complete. History of anticoagulant therapy 04/29/2015 Overview (11/06/2016): Chronic anticoagulation Obstructive sleep apnea syndrome 10/29/2014 Overview (11/06/2016): CONNIE (obstructive sleep apnea) Benign hypertension 10/29/2014 Overview (11/06/2016): HTN (hypertension), benign Encounters Date Type Department Care Team Description 10/04/2024 2:00 PM INTERNET MARKETING MANAGER Office Visit [facility] Surgery [address] [place] [phone] Leeann Odom NP S/P AVR (aortic valve replacement) (Primary Dx) 09/26/2024 8:00 AM INTERNET MARKETING MANAGER Home Care Visit [facility] [address] [place] [phone] Jaclyn Nava RN SN NON OASIS DISCHARGE 09/26/2024 Orders Only [facility] [address] [place] [address] [address] [place] [address] Cynthia Haley NP 09/26/2024 Documentation [facility] [address] [place] [address] [address] [place] [address] Cynthia Haley NP Anticoagulation 09/26/2024 Documentation [facility] [address] [place] [address] [address] [place] [address] Leeann Odom NP RTW Form 09/26/2024 Orders Only [facility] [address] [place] [address] [address] [place] [address] Leeann Odom NP H/O heart valve replacement with mechanical valve (Primary Dx) 09/25/2024 10:30 AM INTERNET MARKETING MANAGER Office Visit [facility] [address] [place] [address] [place] [phone] Qasim Ross MD H/O mechanical aortic valve replacement (Primary Dx) 09/25/2024 Orders Only [facility] [address] [place] [address] [place] [phone] Qasim Ross MD 09/25/2024 Telephone [facility] [address] [place] [address] [place] [phone] Qasim Ross MD 09/24/2024 Orders Only [facility] [address] [place] [address] [place] [phone] Cynthia Haley NP 09/21/2024 10:00 AM INTERNET MARKETING MANAGER Home Care Visit [address] [place] [phone] Jaclyn Nava RN SN HOME VISIT 09/21/2024 Documentation [facility] [address] [place] [address] [place] [phone] Leeann Odom NP INR Management 09/18/2024 9:00 AM INTERNET MARKETING MANAGER Home Care Visit [address] [place] [phone] Jaclyn Nava RN SN HOME VISIT 09/18/2024 Documentation [facility] [address] [place] [address] [place] [phone] Leeann Odom NP 09/14/2024 11:10 AM INTERNET MARKETING MANAGER - 09/14/2024 11:59 PM INTERNET MARKETING MANAGER Hospital Encounter [address] [phone] Discharge Disposition: Discharge to home or self care 09/14/2024 9:00 AM INTERNET MARKETING MANAGER [facility] [address] [facility] [address] [place] [address] Jess Aguirre RN SN HOME VISIT 09/14/2024 Anticoagulation Telephone Call [address] [place] [address] Joey Oconnor NP 09/14/2024 Documentation [facility] [address] [place] [address] [address] [place] [address] Cynthia Haley NP Anticoagulation 09/13/2024 5:00 PM INTERNET MARKETING MANAGER Ancillary Procedure [facility] at [address] [phone] Left shoulder pain, unspecified chronicity 09/13/2024 4:45 PM INTERNET MARKETING MANAGER Ancillary Procedure [facility] at [address] [phone] Aortic stenosis due to bicuspid aortic valve 09/13/2024 Orders Only [facility] [address] [place] [address] [address] [place] [address] Cynthia Haley NP Aortic stenosis due to bicuspid aortic valve (Primary Dx); Left shoulder pain, unspecified chronicity 09/11/2024 11:00 AM INTERNET MARKETING MANAGER [facility] [address] [facility] [address] [place] [address] Kevin Glover, BERTHA SN NON OASIS START OF CARE 09/11/2024 [facility] Post Discharge Follow [facility] [id number] [place] [phone] Shagufta Ureña RN 09/11/2024 Documentation [facility] [address] [place] [address] [address] [place] [address] Cynthia Haley NP Anticoagulation 09/11/2024 Plan of Care Documentation [facility] [address] [facility] [address] [place] [address] 09/10/2024 Telephone [facility] [address] [place] [address] Naga Devi MA 09/10/2024 Orders Only [facility] [address] [facility] [address] [place] [phone] Cynthia Haley NP 09/08/2024 Home Care Visit [facility] [address] [facility] [address] [place] [phone] Katy Clark RN SN TRIAGE ENCOUNTER 09/04/2024 7:35 AM INTERNET MARKETING MANAGER Anesthesia Event [facility] [address] [place] [phone] Augie Gannon MD Ware, Melita C., NP 09/04/2024 7:30 AM INTERNET MARKETING MANAGER - 09/04/2024 1:00 PM INTERNET MARKETING MANAGER Surgery [facility] [address] [place] [phone] Ze Boucher MD REPLACEMENT AORTIC VALVE/270MIN 09/04/2024 5:32 AM INTERNET MARKETING MANAGER - 09/08/2024 5:00 PM INTERNET MARKETING MANAGER Hospital Encounter [address] [address] Ze Boucher MD Aortic stenosis, severe (Primary Dx); Aortic valve stenosis, etiology of cardiac valve disease unspecified; Aortic regurgitation due to bicuspid aortic valve Discharge Disposition: Discharge to home, home health skilled care 08/24/2024 9:11 AM INTERNET MARKETING MANAGER - 08/24/2024 11:59 PM INTERNET MARKETING MANAGER Hospital Encounter [facility] [address] [place] [phone] Discharge Disposition: Discharge to home or self care 08/24/2024 8:45 AM INTERNET MARKETING MANAGER Pre-Admission Testing [facility] Pre Anesthesia Testing [address] [place] [phone] Aortic valve stenosis, etiology of cardiac valve disease unspecified 08/24/2024 Anticoagulation Visit [facility] [address] [facility] [address] [address] Echo Fofana RN 08/16/2024 2:00 PM INTERNET MARKETING MANAGER Office Visit [facility] [address] [facility] [address] [place] [address] Ze Boucher MD Aortic stenosis due to bicuspid aortic valve (Primary Dx); Aortic valve stenosis, etiology of cardiac valve disease unspecified; Bicuspid aortic valve 08/16/2024 Orders Only [facility] [address] [facility] [address] [place] [address] Ze Boucher MD Aortic stenosis due to bicuspid aortic valve (Primary Dx) from Last 3 Months Immunizations Immunization Administration Dates Next Due Influenza, Trivalent, Preservative Free, Intramu scular 09/08/2024 Pfizer SARS-CoV-2 Monovalent Vaccination (12+ Yrs) PURPLE 01/06/2021 Surgical History Surgery Date Site/Laterality Comments CHOLECYSTECTOMY 08/01/1971 - 07/31/1972 BARIATRIC SURGERY 01/06/2010 gastric sleeve SECTION x1 SHOULDER SURGERY Left arthritis cut out NERVE SURGERY Right arm ENDOMETRIAL ABLATION Medical History Medical History Date Comments Shortness of breath DVT (deep venous thrombosis) (HCC) 2015 Pulmonary embolism (HCC) Anxiety Arthritis Depression Migraines Hypertension Stroke (HCC) Kidney stone Menstrual problem Aortic stenosis 01/13/2023 Bicuspid Valve / AI Sleep apnea Hyperlipidemia Syncope while taking Car bamazepine Irritable bowel syndrome Enlarged thyroid patient-reporte d Bipolar disorder (HCC) ADHD (attention deficit hyperactivity disorder) Family History Medical History Relation Name Comments Coronary artery disease Father Dad Early Father Dad Heart failure Father Dad Congestive hea rt failure; Hypertension Father Dad Arrhythmia Mother Mom Arthritis Mother Mom Depression Mother Mom Heart disease Mother Mom Hypertension Mother Mom Hypertension; Obesity Mother Mom Thyroid disease Mother Mom Thyroid diso rder; Heart failure Paternal Grandfather Conges tive heart failure; Mental illness Son Jp Relation Name Status Comments Father Dad Mother Mom Paternal Grandfather Oscar Trammell Social History Tobacco Use Types Packs/Day Years Used Date Smoking Tobacco: Every Day Cigarettes 0.3 25 Passive Smoke Exposure: Yes Smokeless Tobacco: Never Tobacco Cessation:Ready to Q uit: Yes; Counseling Given: Yes Alcohol Use Standard Drinks/Week Comments Yes 1 (1 standard drink = 0.6 oz pur e alcohol) seldom OASIS D0700: Social Isolation Answer Da te Recorded Frequency of experiencing loneliness or isolatio n Never 09/11/2024 [facility] Utilities Answer Date Recorded In the past 12 months has th e electric, gas, oil, or water [employer] threatened to shut off services in your [...] often do you attend chur ch or episcopal services? Never 09/06/2024 Do you belong to any clubs o r organizations such as judaism groups, unions, fraternal or athletic groups, or [...] any time in the past 12 m [facility], were you homeless or living in a retirement (including now)? No 09/06/2024 Personal Safety Answer Date Recorded Have you ever been in or are you currently in a harmful physical or emotional relationship or is someone making you feel afraid or unsafe? Denies 09/04/2024 Comments Unknown Sex and Gender Information Value Date Recorded Sex Assigned at Not on file Legal Sex Female 2:03 AM INTERNET MARKETING MANAGER Gender Identity Not on file Sexual Orientation Not on file Obstetrics History Last Filed Vital Signs Vital Sign Reading Time Taken Comments Blood Pressure 127/74 10/04/2024 2:21 PM INTERNET MARKETING MANAGER Pulse 80 10/04/2024 2:21 PM INTERNET MARKETING MANAGER Temperature 36.5 C (97.7 F) 09/26/2024 8:47 AM INTERNET MARKETING MANAGER Respiratory Rate 14 10/04/2024 2:21 PM INTERNET MARKETING MANAGER Oxygen Saturation 98% 10/04/2024 2:21 PM INTERNET MARKETING MANAGER Inhaled Oxygen Concentration - - Weight 106.1 kg (234 lb) 10/04/2024 2:21 PM INTERNET MARKETING MANAGER Height 162.6 cm (5' 4 ) 10/04/2024 2:21 PM INTERNET MARKETING MANAGER Body Mass Index 40.17 10/04/2024 2:21 PM INTERNET MARKETING MANAGER Plan of Treatment Health Maintenance Due Date Last Done Comments Breast Cancer Screening-Mammogram 1970 Cervical Cancer Screening 1970 Colon Cancer Screening-Colonoscopy 1970 Hepatitis C Screening 1970 Hepatitis B Screening 1988 Regular Well Visit/Exam 18-64 1988 Pneumococcal vaccine <65 (1 of 2 - PCV) 1989 DTaP/Tdap/Td Vaccine (2 - Td or Tdap) 08/11/2015 08/11/2005 Zoster Vaccine (1 of 2) 2020 Depression Screening 05/03/2023 05/03/2022 Covid-19 Vaccine (4 - 2023-2 5 season) 2024 07/09/2021, 01/06/2021, 12/16/2020 Influenza Vaccine Completed 09/08/2024, , 05/16/2018, Additional history exists Medical Devices Implanted Type Area Manager Spanish Device Identifier Shelf Expiration Date Model / Serial / Lot [employer] Plate Bone Low Profile 6 Hole H Shape Sternum Ti 115.102.06 - [id number] Implanted:Qt y: 1 on 09/04/2024 by Ze [facility]cher [facility] at [facility] Plate N/A: Sternum [employer] 115.102.0 6 / / [employer] Plate Bone Low Profile 4 Hole Box Sternum Ti 115.103.04 - [id number] Implanted:Qt y: 1 on 09/04/2024 by Ze Boucher MD at [facility] Plate N/A: Sternum [employer] 115.103.0 4 / / [employer] Plate Bone Low Profile 6 Hole O Shape Sternum Ti 115.104.06 - [id number] Implanted:Qt y: 1 on 09/04/2024 by Ze Boucher MD at [facility] Plate N/A: Sternum [employer] 115.104.0 6 / / [employer] Master-Serie s 23mm 18.6mm Cuff Leaflet Open Control Torque [id number] - [id number] - [id number] Implanted:Qt y: 1 on 09/04/2024 by Ze Boucher MD at [facility] Prosthetic Valve N/A: Aortic Valve [employer] 02/26/2026 [id number]-[id number] / [id number] / 00 [employer] Screw Bone Slf Drl Full Thread Locking 3.5x14mm Ti 100.035.14 - [id number] Implanted:Qt y: 10 on 09/04/2024 by Ze Boucher MD at [facility] Screw N/A: Sternum [employer] 100.035.1 4 / / [employer] Screw Bone Slf Drl Full Thread Locking 3.5x16mm Ti 100.035.16 - [id number] Implanted:Qt y: 6 on 09/04/2024 by Ze Boucher MD at [facility] Screw N/A: Sternum [employer] 100.035.1 6 / / Procedures Procedure Name Priority Date/Time Associated Diagnosis Comments PROTIME-INR Routine 10/31/2024 6:06 AM CDT H/O heart valve replacement with mechanical valve PROTIME-INR Routine 10/03/2024 6:38 AM INTERNET MARKETING MANAGER H/O heart valve replacement with mechanical valve POCT PROTHROMBIN TIME/INR Routine 09/26/2024 8:41 AM INTERNET MARKETING MANAGER POCT PROTHROMBIN TIME/INR Routine 09/21/2024 10:24 AM INTERNET MARKETING MANAGER POCT PROTHROMBIN TIME/INR Routine 09/18/2024 9:04 AM INTERNET MARKETING MANAGER POCT PROTHROMBIN TIME/INR Routine 09/14/2024 11:31 AM INTERNET MARKETING MANAGER EGFR Routine 09/14/2024 11:10 AM INTERNET MARKETING MANAGER DIFFERENTIAL AUTO Routine 09/14/2024 11:10 AM INTERNET MARKETING MANAGER CBC WITH AUTO DIFFERENTIAL Routine 09/14/2024 11:10 AM INTERNET MARKETING MANAGER COMPREHENSIVE METABOLIC PANEL Routine 09/14/2024 11:10 AM INTERNET MARKETING MANAGER XR SHOULDER LEFT 2 OR MORE VIEWS Schedule Routine, Read Routine (OP Routine) 09/13/2024 4:37 PM INTERNET MARKETING MANAGER Left shoulder pain, unspecified chronicity XR CHEST PA LATERAL 2 VIEWS Schedule Routine, Read Routine (OP Routine) 09/13/2024 4:28 PM INTERNET MARKETING MANAGER Aortic stenosis due to bicuspid aortic valve POCT PROTHROMBIN TIME/INR Routine 09/11/2024 11:59 AM INTERNET MARKETING MANAGER TRANSTHORACIC ECHO (TTE) COMPLETE W DOPPLER/CF WO CONTRAST STAT 09/08/2024 5:45 PM INTERNET MARKETING MANAGER XR CHEST 1 VIEW IP Routine 09/08/2024 6:17 AM INTERNET MARKETING MANAGER EGFR Routine 09/08/2024 4:43 AM INTERNET MARKETING MANAGER BASIC METABOLIC PANEL Routine 09/08/2024 4:43 AM INTERNET MARKETING MANAGER CBC WITHOUT DIFFERENTIAL Routine 09/08/2024 4:43 AM INTERNET MARKETING MANAGER PROTIME-INR Routine 09/08/2024 4:43 AM INTERNET MARKETING MANAGER XR CHEST 1 VIEW IP Routine 09/07/2024 5:30 AM INTERNET MARKETING MANAGER EGFR Routine 09/07/2024 4:49 AM INTERNET MARKETING MANAGER BASIC METABOLIC PANEL Routine 09/07/2024 4:49 AM INTERNET MARKETING MANAGER CBC WITHOUT DIFFERENTIAL Routine 09/07/2024 4:49 AM INTERNET MARKETING MANAGER PROTIME-INR Routine 09/07/2024 4:49 AM INTERNET MARKETING MANAGER APTT STAT 09/06/2024 2:10 PM INTERNET MARKETING MANAGER PROTIME-INR STAT 09/06/2024 2:10 PM INTERNET MARKETING MANAGER EGFR Timed 09/06/2024 12:52 PM INTERNET MARKETING MANAGER MAGNESIUM Timed 09/06/2024 12:52 PM INTERNET MARKETING MANAGER CALCIUM,IONIZED, WHOLE BLOOD Timed 09/06/2024 12:52 PM INTERNET MARKETING MANAGER RENAL FUNCTION PANEL Timed 09/06/2024 12:52 PM INTERNET MARKETING MANAGER POCT GLUCOSE DEVICE Routine 09/06/2024 11:55 AM INTERNET MARKETING MANAGER POCT GLUCOSE DEVICE Routine 09/06/2024 7 :33 AM INTERNET MARKETING MANAGER CRITICAL CARE Routine 09/06/2024 7:00 AM INTERNET MARKETING MANAGER Aortic regurgitation due to bicuspid aortic valve XR CHEST 1 VIEW IP Routine 09/06/2024 5:34 AM INTERNET MARKETING MANAGER EGFR Routine 09/06/2024 3:28 AM INTERNET MARKETING MANAGER CBC WITHOUT DIFFERENTIAL Routine 09/06/2024 3:28 AM INTERNET MARKETING MANAGER MAGNESIUM Routine 09/06/2024 3:28 AM INTERNET MARKETING MANAGER BASIC METABOLIC PANEL Routine 09/06/2024 3:28 AM INTERNET MARKETING MANAGER PHOSPHORUS Routine 09/06/2024 3:28 AM INTERNET MARKETING MANAGER POCT GLUCOSE DEVICE Routine 09/05/2024 9 :00 PM INTERNET MARKETING MANAGER POCT GLUCOSE DEVICE Routine 09/05/2024 5 :08 PM INTERNET MARKETING MANAGER EGFR STAT 09/05/2024 3:29 PM INTERNET MARKETING MANAGER MAGNESIUM STAT 09/05/2024 3:29 PM INTERNET MARKETING MANAGER BASIC METABOLIC PANEL STAT 09/05/2024 3:29 PM INTERNET MARKETING MANAGER CBC WITHOUT DIFFERENTIAL STAT 09/05/2024 3:29 PM INTERNET MARKETING MANAGER CALCIUM,IONIZED, WHOLE BLOOD STAT 09/05/2024 3:25 PM INTERNET MARKETING MANAGER POCT GLUCOSE DEVICE Routine 09/05/2024 12:46 PM INTERNET MARKETING MANAGER ECG 12-LEAD STAT 09/05/2024 8:41 AM INTERNET MARKETING MANAGER CBC WITHOUT DIFFERENTIAL STAT 09/05/2024 7:51 AM INTERNET MARKETING MANAGER APTT STAT 09/05/2024 7:47 AM INTERNET MARKETING MANAGER PROTIME-INR STAT 09/05/2024 7:47 AM INTERNET MARKETING MANAGER CRITICAL CARE Routine 09/05/2024 7:05 AM INTERNET MARKETING MANAGER Aortic regurgitation due to bicuspid aortic valve POCT GLUCOSE DEVICE Routine 09/05/2024 7 :05 AM INTERNET MARKETING MANAGER XR CHEST 1 VIEW IP Routine 09/05/2024 5:47 AM INTERNET MARKETING MANAGER T3, FREE Routine 09/05/2024 3:49 AM INTERNET MARKETING MANAGER EGFR Routine 09/05/2024 3:49 AM INTERNET MARKETING MANAGER T4, FREE Routine 09/05/2024 3:49 AM INTERNET MARKETING MANAGER DIFFERENTIAL AUTO Routine 09/05/2024 3:4 9 AM INTERNET MARKETING MANAGER HEMOGLOBIN A1C Routine 09/05/2024 3:49 AM INTERNET MARKETING MANAGER THYROID FUNCTION CASCADE Routine 09/05/2024 3:49 AM INTERNET MARKETING MANAGER LIPID PANEL Routine 09/05/2024 3:49 AM INTERNET MARKETING MANAGER OXYHEMOGLOBIN, PULMONARY ARTERY Routine 09/05/2024 3:49 AM INTERNET MARKETING MANAGER PHOSPHORUS Routine 09/05/2024 3:49 AM INTERNET MARKETING MANAGER MAGNESIUM Routine 09/05/2024 3:49 AM INTERNET MARKETING MANAGER BASIC METABOLIC PANEL Routine 09/05/2024 3:49 AM INTERNET MARKETING MANAGER CBC WITH AUTO DIFFERENTIAL Routine 09/05/2024 3:49 AM INTERNET MARKETING MANAGER POCT GLUCOSE DEVICE Routine 09/05/2024 2:19 AM INTERNET MARKETING MANAGER CRITICAL CARE Routine 09/04/2024 11:38 PM INTERNET MARKETING MANAGER Aortic regurgitation due to bicuspid aortic valve POCT GLUCOSE DEVICE Routine 09/04/2024 9 :48 PM INTERNET MARKETING MANAGER POCT GLUCOSE DEVICE Routine 09/04/2024 8 :41 PM INTERNET MARKETING MANAGER POCT GLUCOSE DEVICE Routine 09/04/2024 7 :16 PM INTERNET MARKETING MANAGER BLOOD GAS, ARTERIAL Timed 09/04/2024 6 :16 PM INTERNET MARKETING MANAGER POCT GLUCOSE DEVICE Routine 09/04/2024 6 :13 PM INTERNET MARKETING MANAGER EGFR STAT 09/04/2024 5:25 PM INTERNET MARKETING MANAGER CALCIUM,IONIZED, WHOLE BLOOD STAT 09/04/2024 5:25 PM INTERNET MARKETING MANAGER PHOSPHORUS STAT 09/04/2024 5:25 PM INTERNET MARKETING MANAGER MAGNESIUM STAT 09/04/2024 5:25 PM INTERNET MARKETING MANAGER BASIC METABOLIC PANEL STAT 09/04/2024 5:25 PM INTERNET MARKETING MANAGER CBC WITHOUT DIFFERENTIAL Timed 09/04/2024 5:25 PM INTERNET MARKETING MANAGER BLOOD GAS, ARTERIAL Timed 09/04/2024 5 :25 PM INTERNET MARKETING MANAGER POCT GLUCOSE DEVICE Routine 09/04/2024 5 :06 PM INTERNET MARKETING MANAGER POCT GLUCOSE DEVICE Routine 09/04/2024 3 :55 PM INTERNET MARKETING MANAGER BLOOD CULTURE Routine 09/04/2024 3:42 PM INTERNET MARKETING MANAGER BLOOD CULTURE Routine 09/04/2024 3:42 PM INTERNET MARKETING MANAGER CALCIUM,IONIZED, WHOLE BLOOD STAT 09/04/2024 3:21 PM INTERNET MARKETING MANAGER BLOOD GAS, ARTERIAL STAT 09/04/2024 3 :21 PM INTERNET MARKETING MANAGER POCT GLUCOSE DEVICE Routine 09/04/2024 2 :48 PM INTERNET MARKETING MANAGER POCT GLUCOSE DEVICE Routine 09/04/2024 1 :49 PM INTERNET MARKETING MANAGER CRITICAL CARE Routine 09/04/2024 1:12 PM INTERNET MARKETING MANAGER Aortic regurgitation due to bicuspid aortic valve XR CHEST 1 VIEW Critical/Life-T hreatening 09/04/2024 12:57 PM INTERNET MARKETING MANAGER SURGICAL PATHOLOGY Routine 09/04/2024 12:35 PM INTERNET MARKETING MANAGER Aortic valve stenosis, etiology of cardiac valve disease unspecified PHOSPHORUS Add-On 09/04/2024 12:27 PM INTERNET MARKETING MANAGER MAGNESIUM Add-On 09/04/2024 12:27 PM INTERNET MARKETING MANAGER EGFR STAT 09/04/2024 12:27 PM INTERNET MARKETING MANAGER APTT STAT 09/04/2024 12:27 PM INTERNET MARKETING MANAGER PROTIME-INR STAT 09/04/2024 12:27 PM INTERNET MARKETING MANAGER CBC WITHOUT DIFFERENTIAL Timed 09/04/2024 12:27 PM INTERNET MARKETING MANAGER BLOOD GAS, ARTERIAL Timed 09/04/2024 12:27 PM INTERNET MARKETING MANAGER BASIC METABOLIC PANEL STAT 09/04/2024 12:27 PM INTERNET MARKETING MANAGER PHOSPHORUS Add-On 09/04/2024 12:27 PM INTERNET MARKETING MANAGER POCT GLUCOSE DEVICE Routine 09/04/2024 11:55 AM INTERNET MARKETING MANAGER POC BLOOD GAS AND CHEMISTRIES, ARTERIAL Routine 09/04/2024 11:04 AM INTERNET MARKETING MANAGER POCT ACTIVATED CLOTTING TIME, HIGH RANGE Routine 09/04/2024 11:00 AM INTERNET MARKETING MANAGER POC BLOOD GAS AND CHEMISTRIES, ARTERIAL Routine 09/04/2024 10:20 AM INTERNET MARKETING MANAGER POCT ACTIVATED CLOTTING TIME, HIGH RANGE Routine 09/04/2024 10:19 AM INTERNET MARKETING MANAGER POC BLOOD GAS AND CHEMISTRIES, ARTERIAL Routine 09/04/2024 9:57 AM INTERNET MARKETING MANAGER PLATELET COUNT STAT 09/04/2024 9:56 AM INTERNET MARKETING MANAGER POC BLOOD GAS AND CHEMISTRIES, ARTERIAL Routine 09/04/2024 9:55 AM INTERNET MARKETING MANAGER POCT ACTIVATED CLOTTING TIME, HIGH RANGE Routine 09/04/2024 9:54 AM INTERNET MARKETING MANAGER POC BLOOD GAS AND CHEMISTRIES, ARTERIAL Routine 09/04/2024 9:19 AM INTERNET MARKETING MANAGER POCT ACTIVATED CLOTTING TIME, HIGH RANGE Routine 09/04/2024 9:18 AM INTERNET MARKETING MANAGER ANESTHESIA CENTRAL VENOUS LINE PLACEMENT Routine 09/04/2024 9:15 AM INTERNET MARKETING MANAGER ANESTHESIA CENTRAL VENOUS LINE PLACEMENT Routine 09/04/2024 9:15 AM INTERNET MARKETING MANAGER TX AN ELECTIVE ENDOTRACHEAL AIRWAY Routine 09/04/2024 9:14 AM INTERNET MARKETING MANAGER ANESTHESIA ARTERIAL LINE PLACEMENT Routine 09/04/2024 9:13 AM INTERNET MARKETING MANAGER POCT ACTIVATED CLOTTING TIME, HIGH RANGE Routine 09/04/2024 8:53 AM INTERNET MARKETING MANAGER ANESTHESIA SCOTTY Routine 09/04/2024 8:28 AM INTERNET MARKETING MANAGER POC BLOOD GAS AND CHEMISTRIES, ARTERIAL Routine 09/04/2024 8:21 AM INTERNET MARKETING MANAGER POCT ACTIVATED CLOTTING TIME, HIGH RANGE Routine 09/04/2024 8:18 AM INTERNET MARKETING MANAGER REPLACEMENT AORTIC VALVE 09/04/2024 7:35 AM INTERNET MARKETING MANAGER Aortic valve stenosis, etiology of cardiac valve disease unspecified B CHECK SAMPLE STAT 09/04/2024 6:51 AM INTERNET MARKETING MANAGER POCT HCG, URINE Routine 09/04/2024 6:30 AM INTERNET MARKETING MANAGER PREPARE RBC STAT 09/04/2024 5:35 AM INTERNET MARKETING MANAGER ECG 12-LEAD Routine 08/24/2024 9:48 AM INTERNET MARKETING MANAGER Aortic valve stenosis, etiology of cardiac valve disease unspecified XR CHEST PA LATERAL 2 VIEWS Schedule Routine, Read Routine (OP Routine) 08/24/2024 9:27 AM INTERNET MARKETING MANAGER Aortic valve stenosis, etiology of cardiac valve disease unspecified EGFR Routine 08/24/2024 9:25 AM INTERNET MARKETING MANAGER Aortic valve stenosis, etiology of cardiac valve disease unspecified BASIC METABOLIC PANEL Routine 08/24/2024 9:25 AM INTERNET MARKETING MANAGER Aortic valve stenosis, etiology of cardiac valve disease unspecified PROTIME-INR Routine 08/24/2024 9:25 AM INTERNET MARKETING MANAGER Aortic valve stenosis, etiology of cardiac valve disease unspecified APTT Routine 08/24/2024 9:25 AM INTERNET MARKETING MANAGER Aortic valve stenosis, etiology of cardiac valve disease unspecified CBC WITHOUT DIFFERENTIAL Routine 08/24/2024 9:25 AM INTERNET MARKETING MANAGER Aortic valve stenosis, etiology of cardiac valve disease unspecified TYPE AND SCREEN Routine 08/24/2024 9:25 AM INTERNET MARKETING MANAGER Aortic valve stenosis, etiology of cardiac valve disease unspecified URINALYSIS AND REFLEX TO MICROSCOPIC AND CULTURE Routine 08/24/2024 9:25 AM INTERNET MARKETING MANAGER Aortic valve stenosis, etiology of cardiac valve disease unspecified from Last 3 Months Results * (ABNORMAL) Protime-INR (10/31/2024 6:06 AM CDT) INR 3.4(H) [facility] Comment: Reference Range 0.9-1.1 Moderate-intensity Warfarin Therapy 2.0-3.0 Higher-intensity Warfarin Therapy 3.0-4.0 PT 33.8(H) 9.0 - 11.5 sec [facility] Comment: For additional information, please refer to http://e-contratos.Reach.ly/faq/FLU838 (This link is being provided for informational/ educational purposes only.) Blood 10/31/2024 6:06 AM CDT 10/31/2024 6:06 AM CDT Leeann Odom SCHOOL INSPECTOR LAB BLOOD ORDERABLES Chloé l Result Performing Organization Address [facility] Co de Phone Number [facility] [address] [place] [address] * (ABNORMAL) Protime-INR (10/03/2024 6:38 AM INTERNET MARKETING MANAGER) INR 3.2(H) [facility] [employer] luisa [facility] Comment: Reference Range 0.9-1.1 Moderate-intensity Warfarin Therapy 2.0-3.0 Higher-intensity Warfarin Therapy 3.0-4.0 PT 32.0(H) 9.0 - 11.5 sec [employer] luisa [facility] Comment: For additional information, please refer to http://e-contratos.Reach.ly/faq/WJX763 (This link is being provided for informational/ educational purposes only.) Blood 10/03/2024 6:38 AM INTERNET MARKETING MANAGER 10/03/2024 6:39 AM INTERNET MARKETING MANAGER Leeann Odom SCHOOL INSPECTOR LAB BLOOD ORDERABLES Chloé l Result Performing Organization Address [facility] Co de Phone Number [facility] [address] [place] [address] * POCT PT/INR (09/26/2024 8:41 AM INTERNET MARKETING MANAGER) INR, POC 3.30 [facility] Comment:repeat INR on 10/03 at [facility] Blood 09/26/2024 8:41 AM INTERNET MARKETING MANAGER Cynthia Haley NP POINT OF CARE TEST ORDERAB LES Final Result [facility] * POCT PT/INR (09/21/2024 10:24 AM INTERNET MARKETING MANAGER) INR, POC 3.80 HH [facility] Blood 09/21/2024 10:2 4 AM INTERNET MARKETING MANAGER Ze Boucher MD POINT OF CARE TEST ORDERABLES Final Result Performing Organization Address City/[facility]/ZIP Co de Phone Number [facility] * POCT PT/INR (09/18/2024 9:04 AM INTERNET MARKETING MANAGER) INR, POC 3.10 HH [facility] Blood 09/18/2024 9:04 AM INTERNET MARKETING MANAGER Cynthia Haley SCHOOL INSPECTOR POINT OF CARE TEST ORDERAB LES Final Result [facility] * POCT PT/INR (09/14/2024 11:31 AM INTERNET MARKETING MANAGER) INR, POC 1.80 HH [facility] Blood 09/14/2024 11:3 1 AM INTERNET MARKETING MANAGER Cynthia Haley SCHOOL INSPECTOR POINT OF CARE TEST ORDERAB LES Final Result [facility] * eGFR (09/14/2024 11:10 AM INTERNET MARKETING MANAGER) eGFR 70 >=60 mL/min/1. 73 m2 Comment: Interpretive Data Reference Interval Normal >/= 90 mL/min/1.73m2 Mildly decreased* 60 - 89 mL/min/1.73m2 Mildly to moderately decreased 45 - 59 mL/min/1.73m2 Moderately to severely decreased 30 - 44 mL/min/1.73m2 Severely decreased 15 - 29 mL/min/1.73m2 Kidney Failure < 15 mL/min/1.73m2 *Relative to young adult level Estimated glomerular filtration rate is determined by the 2020 CKD-EPI equation recommended by the National Kidney Foundation (A Unifying Approach to GFR Estimation: Recommendations of the NKF-ASK Task Force on Reassessing the Inclusion of Race in Diagnosing Kidney Disease, JASN 202). The CKD-EPI equation should not be used for patients with unstable renal function and has not been validated in children and those over 70. Current interpretive data was last reviewed 2021. Blood 09/14/2024 11:1 0 AM INTERNET MARKETING MANAGER 09/14/2024 4:43 PM INTERNET MARKETING MANAGER us Cynthia Haley SCHOOL INSPECTOR LAB BLOOD ORDERABLES Final Result [facility] Department [place] [address] * Differential, auto (09/14/2024 11:10 AM INTERNET MARKETING MANAGER) Neutrophil abs 6.4 1.5 - 6.5 K/cumm Imm gran abs 0.1 0.0 - 0.1 K/cumm [facility] Lymphocyte abs 1.8 0.8 - 3.3 K/cumm [facility] Monocyte abs 0.6 0.2 - 0.8 K/cumm [facility] Eosinophil abs 0.0 0.0 - 0.5 K/cumm [facility] Basophil abs 0.1 0.0 - 0.1 K/cumm [facility] Neutrophil pct 71.4 % [facility] Comment: Interpretive Data Percent cell count reference ranges are not reported, since discordance with absolute values may lead to misinterpretation of CBC data. Current Interpretive Data was last revised on 2017. Imm gran pct 0.8 % [facility] Comment: Interpretive Data Percent cell count reference ranges are not reported, since discordance with absolute values may lead to misinterpretation of CBC data. Current Interpretive Data was last revised on 2017. Lymphocyte pct 19.7 % [facility] Comment: Interpretive Data Percent cell count reference ranges are not reported, since discordance with absolute values may lead to misinterpretation of CBC data. Current Interpretive Data was last revised on 2017. Monocyte pct 7.2 % [facility] Comment: Interpretive Data Percent cell count reference ranges are not reported, since discordance with absolute values may lead to misinterpretation of CBC data. Current Interpretive Data was last revised on 2017. Eosinophil pct 0.2 % [facility] Comment: Interpretive Data Percent cell count reference ranges are not reported, since discordance with absolute values may lead to misinterpretation of CBC data. Current Interpretive Data was last revised on 2017. Basophil pct 0.7 % [facility] Comment: Interpretive Data Percent cell count reference ranges are not reported, since discordance with absolute values may lead to misinterpretation of CBC data. Current Interpretive Data was last revised on 2017. Blood 09/14/2024 11:1 0 AM INTERNET MARKETING MANAGER 09/14/2024 4:20 PM INTERNET MARKETING MANAGER us Cynthia Haley SCHOOL INSPECTOR LAB BLOOD ORDERABLES Final Result [facility] Department [place] [address] * CBC with auto differential (09/14/2024 11:10 AM INTERNET MARKETING MANAGER) WBC 8.9 3.8 - 9.9 K/cumm Hgb 11.9 11.9 - 15.5 g/dL [facility] Hct 35.8 35.6 - 45.5 % [facility] Plt 393 150 - 400 K/cumm [facility] MPV 10.3 9.1 - 12.3 fL [facility] RBC 4.13 3.90 - 5.20 M/cumm [facility] MCV 86.7 81.3 - 96.4 fL [facility] MCH 28.8 27.1 - 33.3 pg [facility] MCHC 33.2 32.3 - 35.7 g/dL [facility] RDW CV 12.7 11.1 - 14.9 % [facility] RDW SD 39.7 35.7 - 48.1 fL [facility] NRBC abs 0.00 0.00 - 0.01 K/cumm [facility] Blood 09/14/2024 11:1 0 AM INTERNET MARKETING MANAGER 09/14/2024 4:20 PM INTERNET MARKETING MANAGER us Cynthia Haley SCHOOL INSPECTOR LAB BLOOD ORDERABLES Final Result [facility] Department [place] [address] * Comprehensive metabolic panel (09/14/2024 11:10 AM INTERNET MARKETING MANAGER) Sodium 140 135 - 145 mmol/L Potassium, pl 3.7 3.3 - 4.9 mmol/L [facility] Chloride 101 97 - 110 mmol/L [facility] CO2 28 22 - 32 mmol/L [facility] Anion gap 11 2 - 15 mmol/L [facility] BUN 14 6 - 25 mg/dL [facility] Creatinine 0.96 0.60 - 1.10 mg/dL [facility] Glucose 77 70 - 199 mg/dL [facility] Comment: Interpretive Data Fasting glucose >/= 126 mg/dl is diagnostic for diabetes. Fasting is defined as no caloric intake for at least 8 hours. Fasting glucose between 100 mg/dl to 125 mg/dl is diagnostic of prediabetes. In a patient with classic symptoms of hyperglycemia or hyperglycemic crisis, a random glucose >/= 200 mg/dl is diagnostic for diabetes. In the absence of unequivocal hyperglycemia, results should be confirmed by repeat testing. The classification and Diagnosis of Diabetes Diabetes Care 202; 46: S19-S40. Current interpretive data was last revised 2022. Calcium 9.0 8.5 - 10.3 mg/dL [facility] Bilirubin, total 0.2 0.1 - 1.2 mg/dL [facility] Protein, pl 6.8 6.5 - 8.5 g/dL [facility] Albumin 3.6 3.5 - 5.0 g/dL [facility] Alk phos 127 40 - 130 Units/L [facility] ALT 22 7 - 45 Units/L [facility] AST 20 10 - 45 Units/L [facility] Blood 09/14/2024 11:1 0 AM INTERNET MARKETING MANAGER 09/14/2024 4:20 PM INTERNET MARKETING MANAGER Cynthiawayne Barahonaclay Haley SCHOOL INSPECTOR LAB BLOOD ORDERABLES Final Result [facility] Department [place] [address] * XR Shoulder Left 2 or More Views (09/13/2024 4:37 PM INTERNET MARKETING MANAGER) Anatomical Region Laterality Modality Upper Extremities, Shoulder Left [facility] 09/17/2024 12:0 3 AM INTERNET MARKETING MANAGER Narrative 09/17/2024 12:23 AM INTERNET MARKETING MANAGER EXAM DESCRIPTION: XR SHOULDER LEFT 2 OR MORE VIEWS REASON FOR STUDY: left shoulder pain, history of dislocation 09/04/24 open heart surgery, left shoulder pain since being in the hospital. Prior left arthroscopy surgery. Pt quit smoking 09/04/23. Smoked for about 30 years. TECHNIQUE: Three radiographic views of the left shoulder . COMPARISON: None. FINDINGS: BONES: There is no cortical discontinuity or trabecular irregularity to suggest fracture. There is widening of the acromioclavicular joint consistent with postsurgical changes. SOFT TISSUES: The soft tissues are unremarkable. IMPRESSION: No acute osseous abnormality. Postsurgical changes of the acromioclavicular joint. THIS IS AN ELECTRONICALLY VERIFIED FINAL REPORT 09/17/2024 12:23 AM - Electronically signed by Desi Rand M.D. SN T: Report ID: [id number] Reading Location: [id number] Procedure Note Desi Rand MD - 09/17/2024 EXAM DESCRIPTION: XR SHOULDER LEFT 2 OR MORE VIEWS REASON FOR STUDY: left shoulder pain, history of dislocation 09/04/24 open heart surgery, left shoulder pain since being in the hospital. Prior left arthroscopy surgery. Pt quit smoking 09/04/23. Smoked for about30 years. TECHNIQUE: Three radiographic views of the left shoulder . COMPARISON: None. FINDINGS: BONES: There is no cortical discontinuity or trabecular irregularity to suggest fracture. There is widening of theacromioclavicular joint consistent with postsurgical changes. SOFT TISSUES: The soft tissues are unremarkable. IMPRESSION: No acute osseous abnormality. Postsurgical changes of the acromioclavicular joint. THIS IS AN ELECTRONICALLY VERIFIED FINAL REPORT 09/17/2024 12:23 AM - Electronically signed by Desi Rand M.D. SN T: Report ID: [id number] Reading Location: [place] [address] Cynthia Haley SCHOOL INSPECTOR IMG XR PROCEDURES Final Re sult * X-ray chest 2 views (09/13/2024 4:28 PM INTERNET MARKETING MANAGER) Anatomical Region Laterality Modality Body, Chest N/A Digital Radiogra phy 09/17/2024 12:0 0 AM INTERNET MARKETING MANAGER Narrative 09/17/2024 12:01 AM INTERNET MARKETING MANAGER EXAM DESCRIPTION: XR CHEST PA LATERAL 2 VIEWS REASON FOR STUDY: sternal/shoulder pain s/p sternotomy 09/04/24 open heart surgery, left shoulder pain since being in the hospital. Prior left arthroscopy surgery. Pt quit smoking 09/04/23. Smoked for about 30 years. TECHNIQUE: Frontal and lateral radiographic views of the chest acquired. COMPARISON: Chest x-ray of September 08, 2024. FINDINGS: LUNGS/PLEURA: No focal consolidation or pneumothorax. No pleural effusion. There is no significant change as compared to previous study. HEART/MEDIASTINUM: Cardiac silhouette is within normal limits. Remaining mediastinal silhouettes are unremarkable. HARDWARE/LINES/TUBES: There are sequelae of sternotomy. A valve prosthesis is seen in place. BONES: No acute findings. There is degenerative change throughout the thoracic spine. IMPRESSION: No acute cardiopulmonary abnormality. THIS IS AN ELECTRONICALLY VERIFIED FINAL REPORT 09/17/2024 12:01 AM - Electronically signed by Desi Rand M.D. SN T: Report ID: [id number] Reading Location: [id number] Procedure Note Desi Rand MD - 09/17/2024 EXAM DESCRIPTION: XR CHEST PA LATERAL 2 VIEWS REASON FOR STUDY: sternal/shoulder pain s/p sternotomy 09/04/24 open heart surgery, left shoulder pain since being in the hospital. Prior left arthroscopy surgery. Pt quit smoking 09/04/23. Smoked for about30 years. TECHNIQUE: Frontal and lateral radiographic views of the chest acquired. COMPARISON: Chest x-ray of September 08, 2024. FINDINGS: LUNGS/PLEURA: No focal consolidation or pneumothorax. Nopleural effusion. There is no significant change as compared to previous study. HEART/MEDIASTINUM: Cardiac silhouette is within normal limits.Remaining mediastinal silhouettes are unremarkable. HARDWARE/LINES/TUBES: There are sequelae of sternotomy. A valveprosthesis is seen in place. BONES: No acute findings. There is degenerative change throughout the thoracic spine. IMPRESSION: No acute cardiopulmonary abnormality. THIS IS AN ELECTRONICALLY VERIFIED FINAL REPORT 09/17/2024 12:01 AM - Electronically signed by Desi Rand M.D. SN T: Report ID: [id number] Reading Location: [id number] Cynthia Haley SCHOOL INSPECTOR IMG XR PROCEDURES Final Re sult * POCT PT/INR (09/11/2024 11:59 AM INTERNET MARKETING MANAGER) INR, POC 1.60 POCT RESULTING LABORATORY Comment:PT TAKING ORDERED IN EVENING Blood 09/11/2024 11:5 9 AM INTERNET MARKETING MANAGER Cynthia Haley NP POINT OF CARE TEST ORDERAB LES Final Result POCT RESULTING LABORATORY * TRANSTHORACIC ECHO (TTE) COMPLETE W DOPPLER/CF WO CONTRAST (09/08/2024 5:45 PM INTERNET MARKETING MANAGER) LV EF % CONS SCIMAGE Anatomical Region Laterality Modality Ultrasound 09/08/2024 12:5 4 PM INTERNET MARKETING MANAGER Narrative 09/08/2024 4:21 PM INTERNET MARKETING [place] [address] Echocardiogram Report Patient Name: ZURI ACEVES SUE : 1970 Study Date: 09/08/2024 12:54:21 PM Gender: F Tech: [place] Location: [id number] Ref Provider: ZE BOUCHER Height(Cm): 163 BSA: 2.22 Weight(Kg): 109 Heart Rate: 84 BP: 147 / 98 Quality: Good Order Provider: ZE BOUCHER PROCEDURES: Echocardiographic Report: Transthoracic echocardiogram with complete 2D, M-Mode, and color Doppler examination. INDICATIONS: Post op mechanical AVR. MEASUREMENTS: 2D/MM Value Range Doppler Value Range EF Teich 2D 64.4 percent [ 54.0 - 74.0 ] MARILIA Vmax 1.84 cm2 EF Mod BP 66 % [ 54 - 74 ] AV Mean PG 26 mmHg LVIDd 2D 4.46 cm [ 3.80 - 5.20 ] AV Peak Michael 3.43 m/s [ 1.00 - 1.70 ] LVIDs 2D 2.90 cm [ 2.20 - 3.50 ] AV VTI 67.10 cm LVPWd 2D 1.12 cm [ 0.60 - 0.90 ] LVOT Diam 1.96 cm IVSd 2D 1.37 cm [ 0.60 - 0.90 ] LVOT Peak Michael 2.10 m/s [ 0.70 - 1.10 ] LA Dimension 2D 3.94 cm [ 2.70 - 3.80 ] LVOT VTI 46.47 cm LA Volume Index 36.19 cc/m2 [ 16.00 - 34.00 ] SI LVOT 65.7 ml/m2 [ >= 35.0 ] MV E Peak Michael 1.18 m/s [ 0.60 - 1.30 ] MV A Peak Michael 1.55 m/s [ 1.00 - 1.20 ] MV Mean PG 5 mmHg MV PHT 65 msec [ 20 - 100 ] MVA PHT 3.41 cm2 MV Decel Time 223 msec [ 104 - 258 ] PV Peak Michael 0.97 m/s [ 0.40 - 0.80 ] TR Peak Michael 2.64 m/s [ 1.00 - 2.80 ] TR Peak PG 28 mmHg E` 0.06 m/s E/E` 12.12 2D/MM Value Range Doppler Value Range - FINDINGS: Atrial Septum: Normal atrial septum. Left Ventricle: Normal left ventricular size. Mild concentric left ventricular hypertrophy. Normal global left ventricular systolic function. Diastolic dysfunction is present. Ejection fraction is measured at 66 %. Left Atrium: The left atrium is normal in size. Right Ventricle: Normal right ventricular size. Normal right ventricular systolic function. Right Atrium: The right atrium is normal in size. Aortic Valve: Mean gradient of 26.0 mmHg. Valve area of 1.8 cm2. Gradients abnormal for valve type and size. Mitral Valve: Normal structure of the mitral valve. There is no hemodynamically significant mitral stenosis by Doppler. Trivial regurgitation of the mitral valve. Pulmonic Valve: Normal structure of the pulmonic valve. Mild pulmonic regurgitation. Tricuspid Valve: Normal structure of the tricuspid valve. Estimated peak RVSP is 33 mmHg. Mild tricuspid regurgitation. Pericardium: Normal pericardium with no significant pericardial effusion. Aorta: Sinus of Valsalva is normal. IVC: Normal size and normal respiratory collapse consistent with normal right atrial pressure (<5 mmHg). Pulmonary Artery: Normal pulmonary artery size. CONCLUSIONS: Normal left ventricular size. Mild concentric left ventricular hypertrophy. Normal global left ventricular systolic function. Diastolic dysfunction is present. Ejection fraction is measured at 66 %. Trivial regurgitation of the mitral valve. Mechanical aortic valve. Difficult to visualize the aortic valve leaflets due reverberation artifact. Mean gradient of 26.0 mmHg. Valve area of 1.8 cm2. DVI 0.7. Acceleration time to peak aortic valve velocity is 73 milliseconds. Trivial aortic valve regurgitation. Estimated peak RVSP is 33 mmHg. Mild tricuspid regurgitation. Mild pulmonic regurgitation. Electronically Signed By: Dr. Matilda Guo [facility] 09/08/2024 4:19:47 PM INTERNET MARKETING MANAGER Procedure Note Matilda Guo MD - 09/08/2024 [place] [address] Echocardiogram Report Patient Name: ZURI ACEVES SUE : 1970 Study Date: 09/08/2024 12:54:21 PM Gender: F Tech: [place] Location: [id number] Ref Provider: ZE BOUCHER Height(Cm): 163 BSA: 2.22 Weight(Kg): 109 Heart Rate: 84 BP: 147 / 98 Quality: Good Order Provider: ZE BOUCHER PROCEDURES: Echocardiographic Report: Transthoracic echocardiogram with complete 2D, M-Mode, and color Dopplerexamination. INDICATIONS: Post op mechanical AVR. MEASUREMENTS: 2D/MM Value Range DopplerValue Range EF Teich 2D 64.4 percent [ 54.0 - 74.0 ] MARILIA Vmax1.84 cm2 EF Mod BP 66 % [ 54 - 74 ] AV Mean PG26 mmHg LVIDd 2D 4.46 cm [ 3.80 - 5.20 ] AV Peak Vel3.43 m/s [ 1.00 - 1.70 ] LVIDs 2D 2.90 cm [ 2.20 - 3.50 ] AV VTI67.10 cm LVPWd 2D 1.12 cm [ 0.60 - 0.90 ] LVOT Diam1.96 cm IVSd 2D 1.37 cm [ 0.60 - 0.90 ] LVOT Peak Vel2.10 m/s [ 0.70 - 1.10 ] LA Dimension 2D 3.94 cm [ 2.70 - 3.80 ] LVOT VTI46.47 cm LA Volume Index 36.19 cc/m2 [ 16.00 - 34.00 ] SI LVOT65.7 ml/m2 [ >= 35.0 ] MV E Peak Michael 1.18 m/s [ 0.60 - 1.30 ] MV A Peak Michael 1.55 m/s [ 1.00 - 1.20 ] MV Mean PG 5 mmHg MV PHT 65 msec [ 20 - 100 ] MVA PHT 3.41 cm2 MV Decel Time 223 msec [ 104 - 258 ] PV Peak Michael 0.97 m/s [ 0.40 - 0.80 ] TR Peak Michael 2.64 m/s [ 1.00 - 2.80 ] TR Peak PG 28 mmHg E` 0.06 m/s E/E` 12.12 2D/MM Value Range DopplerValue Range - FINDINGS: Atrial Septum: Normal atrial septum. Left Ventricle: Normal left ventricular size. Mild concentric left ventricularhypertrophy. Normal global left ventricular systolic function. Diastolic dysfunction is present.Ejection fraction is measured at 66 %. Left Atrium: The left atrium is normal in size. Right Ventricle: Normal right ventricular size. Normal right ventricular systolicfunction. Right Atrium: The right atrium is normal in size. Aortic Valve: Mean gradient of 26.0 mmHg. Valve area of 1.8 cm2. Gradients abnormal forvalve type and size. Mitral Valve: Normal structure of the mitral valve. There is no hemodynamicallysignificant mitral stenosis by Doppler. Trivial regurgitation of the mitral valve. Pulmonic Valve: Normal structure of the pulmonic valve. Mild pulmonic regurgitation. Tricuspid Valve: Normal structure of the tricuspid valve. Estimated peak RVSP is 33 mmHg.Mild tricuspid regurgitation. Pericardium: Normal pericardium with no significant pericardial effusion. Aorta: Sinus of Valsalva is normal. IVC: Normal size and normal respiratory collapse consistent with normal rightatrial pressure (<5 mmHg). Pulmonary Artery: Normal pulmonary artery size. CONCLUSIONS: Normal left ventricular size. Mild concentric left ventricularhypertrophy. Normal global left ventricular systolic function. Diastolic dysfunction is present.Ejection fraction is measured at 66 %. Trivial regurgitation of the mitral valve. Mechanical aortic valve. Difficult to visualize the aortic valve leafletsdue reverberation artifact. Mean gradient of 26.0 mmHg. Valve area of 1.8 cm2.DVI 0.7. Acceleration time to peak aortic valve velocity is 73 milliseconds.Trivial aortic valve regurgitation. Estimated peak RVSP is 33 mmHg. Mild tricuspid regurgitation. Mild pulmonic regurgitation. Electronically Signed By: Dr. Matilda Guo [facility] 09/08/2024 4:19:47 PM INTERNET MARKETING MANAGER Ze Boucher MD CV ECHO PROCEDURES Final Resul t * XR Chest 1 View - Portable - in AM (09/08/2024 6:17 AM INTERNET MARKETING MANAGER) Anatomical Region Laterality Modality Body, Chest N/A Computed Radiogr aphy 09/08/2024 7:25 AM INTERNET MARKETING MANAGER Impressions 09/08/2024 7:25 AM INTERNET MARKETING MANAGER No change from previous. Electronically signed by: Gabriel Minaya M.D. Narrative 09/08/2024 7:25 AM INTERNET MARKETING MANAGER EXAM: XR CHEST 1 VIEW DATE: 09/08/2024 4:45 AM CLINICAL HISTORY: Status post cardiac surgery. COMPARISON: 09/07/2024 FINDINGS: Portable AP radiograph of the chest was obtained. There are postsurgical changes from a median sternotomy. Right jugular venous catheter remains in place with tip in the superior vena cava. The heart size is normal. The lungs are well-expanded. No evidence of a confluent pulmonary infiltrate. There is a small left pleural effusion which is unchanged. Procedure Note Gabriel Minaya MD - 09/08/2024 EXAM: XR CHEST 1 VIEW DATE: 09/08/2024 4:45 AM CLINICAL HISTORY: Status post cardiac surgery. COMPARISON: 09/07/2024 FINDINGS: Portable AP radiograph of the chest was obtained. There are postsurgical changes from a median sternotomy. Right jugular venous catheter remains in place with tip in the superior vena cava. The heart size is normal. The lungs are well-expanded. No evidence of a confluent pulmonary infiltrate. There is a small left pleural effusion which is unchanged. IMPRESSION: No change from previous. Electronically signed by: Gabriel Minaya M.D. Ze Boucher MD IMG XR PROCEDURES Final Result * eGFR (09/08/2024 4:43 AM INTERNET MARKETING MANAGER) eGFR 85 >=60 mL/min/1. 73 m2 Comment: Interpretive Data Reference Interval Normal >/= 90 mL/min/1.73m2 Mildly decreased* 60 - 89 mL/min/1.73m2 Mildly to moderately decreased 45 - 59 mL/min/1.73m2 Moderately to severely decreased 30 - 44 mL/min/1.73m2 Severely decreased 15 - 29 mL/min/1.73m2 Kidney Failure < 15 mL/min/1.73m2 *Relative to young adult level Estimated glomerular filtration rate is determined by the 2020 CKD-EPI equation recommended by the National Kidney Foundation (A Unifying Approach to GFR Estimation: Recommendations of the NKF-ASK Task Force on Reassessing the Inclusion of Race in Diagnosing Kidney Disease, JASN 2020). The CKD-EPI equation should not be used for patients with unstable renal function and has not been validated in children and those over 70. Current interpretive data was last reviewed 2021. Blood 09/08/2024 4:43 AM INTERNET MARKETING MANAGER 09/08/2024 4:43 AM INTERNET MARKETING MANAGER Joey Oconnor SCHOOL INSPECTOR LAB BLOOD ORDERABLES Final Result NICOLE RAMOS [id number] Department [place] [address] * (ABNORMAL) Protime-INR (09/08/2024 4:43 AM INTERNET MARKETING MANAGER) PT 46.1(H) 9.7 - 13.0 sec INR 4.15(H) 0.90 - 1.20 NICOLE RAMOS Comment: Interpretive data Oral anticoagulant therapeutic ranges: Venous thromboembolism prophylaxis or treatment: 2.0-3.0 CARDIOLOGY Standard range: 2.0-3.0 High-intensity range: 2.5-3.5 Refer to indication-specific guidelines for appropriate target ranges for prosthetic heart valve replacement. Current interpretive data was last revised on 2019. Blood 09/08/2024 4:43 AM INTERNET MARKETING MANAGER 09/08/2024 4:43 AM INTERNET MARKETING MANAGER Joey Oconnor SCHOOL INSPECTOR LAB BLOOD ORDERABLES Final Result Performing Organization Address City/[facility]/ZIP Co de Phone Number NICOLE RAMOS [address] Department [place] [address] * (ABNORMAL) CBC without differential (09/08/2024 4:43 AM INTERNET MARKETING MANAGER) WBC 6.1 3.8 - 9.9 K/cumm Hgb 10.8(L) 11.9 - 15.5 g/dL CERNER CH Hct 33.2(L) 35.6 - 45.5 % CERNER CH Plt 166 150 - 400 K/cumm [facility] MPV 10.7 9.1 - 12.3 fL [facility] RBC 3.82(L) 3.90 - 5.20 M/cumm [facility] MCV 86.9 81.3 - 96.4 fL [facility] MCH 28.3 27.1 - 33.3 pg [facility] MCHC 32.5 32.3 - 35.7 g/dL [facility] RDW CV 12.4 11.1 - 14.9 % CERNER [facility] RDW SD 39.3 35.7 - 48.1 fL [facility] NRBC abs 0.00 0.00 - 0.01 K/cumm [facility] Blood 09/08/2024 4:43 AM INTERNET MARKETING MANAGER 09/08/2024 4:43 AM INTERNET MARKETING MANAGER Joey Oconnor SCHOOL INSPECTOR LAB BLOOD ORDERABLES Final Result NICOLE RAMOS [address] Department [place] [address] * Basic metabolic panel (09/08/2024 4:43 AM INTERNET MARKETING MANAGER) Sodium 141 135 - 145 mmol/L Potassium, pl 3.4 3.3 - 4.9 mmol/L C[facility] Chloride 106 97 - 110 mmol/L [facility] CO2 25 22 - 32 mmol/L C[facility] Anion gap 10 2 - 15 mmol/L [facility] BUN 17 6 - 25 mg/dL [facility] Creatinine 0.82 0.60 - 1.10 mg/dL [facility] Glucose 91 70 - 199 mg/dL [facility] Comment: Interpretive Data Fasting glucose >/= 126 mg/dl is diagnostic for diabetes. Fasting is defined as no caloric intake for at least 8 hours. Fasting glucose between 100 mg/dl to 125 mg/dl is diagnostic of prediabetes. In a patient with classic symptoms of hyperglycemia or hyperglycemic crisis, a random glucose >/= 200 mg/dl is diagnostic for diabetes. In the absence of unequivocal hyperglycemia, results should be confirmed by repeat testing. The classification and Diagnosis of Diabetes Diabetes Care 2021; 46: S19-S40. Current interpretive data was last revised 2022. Calcium 8.5 8.5 - 10.3 mg/dL [facility] Blood 09/08/2024 4:43 AM INTERNET MARKETING MANAGER 09/08/2024 4:43 AM INTERNET MARKETING MANAGER Joey Oconnor NP LAB BLOOD ORDERABLES Final Result [facility] [address] Department [place] [address] * XR Chest 1 View - Portable - in AM (09/07/2024 5:30 AM INTERNET MARKETING MANAGER) Anatomical Region Laterality Modality Body, Chest N/A Computed Radiogr aphy 09/07/2024 8:13 AM INTERNET MARKETING MANAGER Impressions 09/07/2024 8:13 AM INTERNET MARKETING MANAGER No failure or pneumothorax. Atelectasis left base. Electronically signed by: Dick Renteria M.D. Narrative 09/07/2024 8:13 AM INTERNET MARKETING MANAGER EXAMINATION: XR CHEST 1 VIEW DATE: 09/07/2024 5:20 AM HISTORY: Cardiac surgery follow-up FINDINGS:Compared with study the previous day, postsurgical changes again evident within the heart and mediastinum with stable heart size. No failure or pneumothorax. Atelectasis left base. Improved aeration right base. Central sheath in superior vena cava Procedure Note Dick Renteria MD - 09/07/2024 EXAMINATION: XR CHEST 1 VIEW DATE: 09/07/2024 5:20 AM HISTORY: Cardiac surgery follow-up FINDINGS:Compared with study the previous day, postsurgical changes again evident within the heart and mediastinum with stable heart size. No failure or pneumothorax. Atelectasis left base. Improved aeration right base. Central sheath in superior vena cava IMPRESSION: No failure or pneumothorax. Atelectasis left base. Electronically signed by: Dick Renteria M.D. Ze Boucher MD IMG XR PROCEDURES Final Result * eGFR (09/07/2024 4:49 AM INTERNET MARKETING MANAGER) eGFR 84 >=60 mL/min/1. 73 m2 Comment: Interpretive Data Reference Interval Normal >/= 90 mL/min/1.73m2 Mildly decreased* 60 - 89 mL/min/1.73m2 Mildly to moderately decreased 45 - 59 mL/min/1.73m2 Moderately to severely decreased 30 - 44 mL/min/1.73m2 Severely decreased 15 - 29 mL/min/1.73m2 Kidney Failure < 15 mL/min/1.73m2 *Relative to young adult level Estimated glomerular filtration rate is determined by the 2020 CKD-EPI equation recommended by the National Kidney Foundation (A Unifying Approach to GFR Estimation: Recommendations of the NKF-ASK Task Force on Reassessing the Inclusion of Race in Diagnosing Kidney Disease, JASN 2020). The CKD-EPI equation should not be used for patients with unstable renal function and has not been validated in children and those over 70. Current interpretive data was last reviewed 2021. Blood 09/07/2024 4:49 AM INTERNET MARKETING MANAGER 09/07/2024 5:16 AM INTERNET MARKETING MANAGER us Joey Oconnor NP LAB BLOOD ORDERABLES Final Result NICOLE RAMOS [address] Department of Laboratories [place], [place] [id number] * (ABNORMAL) Protime-INR (09/07/2024 4:49 AM INTERNET MARKETING MANAGER) PT 36.1(H) 9.7 - 13.0 sec INR 3.26(H) 0.90 - 1.20 [facility] Comment: Interpretive data Oral anticoagulant therapeutic ranges: Venous thromboembolism prophylaxis or treatment: 2.0-3.0 CARDIOLOGY Standard range: 2.0-3.0 High-intensity range: 2.5-3.5 Refer to indication-specific guidelines for appropriate target ranges for prosthetic heart valve replacement. Current interpretive data was last revised on 2019. Blood 09/07/2024 4:49 AM INTERNET MARKETING MANAGER 09/07/2024 5:17 AM INTERNET MARKETING MANAGER Joey Oconnor NP LAB BLOOD ORDERABLES Final Result [facility] [address] Department [place] [address] * (ABNORMAL) CBC without differential (09/07/2024 4:49 AM INTERNET MARKETING MANAGER) Pathologist [facility] [place] WBC 8.6 3.8 - 9.9 K/cumm Hgb 11.3(L) 11.9 - 15.5 g/dL [facility] Hct 35.2(L) 35.6 - 45.5 % [facility] Plt 116(L) 150 - 400 K/cumm [facility] Comment:No clot detected in sample. MPV 10.9 9.1 - 12.3 fL [facility] RBC 3.99 3.90 - 5.20 M/cumm [facility] MCV 88.2 81.3 - 96.4 fL [facility] MCH 28.3 27.1 - 33.3 pg [facility] MCHC 32.1(L) 32.3 - 35.7 g/dL [facility] RDW CV 12.5 11.1 - 14.9 % [facility] RDW SD 40.1 35.7 - 48.1 fL [facility] NRBC abs 0.00 0.00 - 0.01 K/cumm [facility] Blood 09/07/2024 4:49 AM INTERNET MARKETING MANAGER 09/07/2024 5:17 AM INTERNET MARKETING MANAGER Joey Oconnor NP LAB BLOOD ORDERABLES Final Result Performing Organization Address City/[facility]/ZIP Co de Phone Number NICOLE RAMOS [address] Department [place] [place] [address] * Basic metabolic panel (09/07/2024 4:49 AM INTERNET MARKETING MANAGER) Sodium 139 135 - 145 mmol/L Potassium, pl 3.8 3.3 - 4.9 mmol/L [facility] Chloride 105 97 - 110 mmol/L [facility] CO2 25 22 - 32 mmol/L [facility] Anion gap 9 2 - 15 mmol/L [facility] BUN 18 6 - 25 mg/dL [facility] Creatinine 0.83 0.60 - 1.10 mg/dL [facility] Glucose 104 70 - 199 mg/dL [facility] Comment: Interpretive Data Fasting glucose >/= 126 mg/dl is diagnostic for diabetes. Fasting is defined as no caloric intake for at least 8 hours. Fasting glucose between 100 mg/dl to 125 mg/dl is diagnostic of prediabetes. In a patient with classic symptoms of hyperglycemia or hyperglycemic crisis, a random glucose >/= 200 mg/dl is diagnostic for diabetes. In the absence of unequivocal hyperglycemia, results should be confirmed by repeat testing. The classification and Diagnosis of Diabetes Diabetes Care 202; 46: S19-S40. Current interpretive data was last revised 2022. Calcium 8.8 8.5 - 10.3 mg/dL [facility] Blood 09/07/2024 4:49 AM INTERNET MARKETING MANAGER 09/07/2024 5:16 AM INTERNET MARKETING MANAGER Joey Oconnor NP LAB BLOOD ORDERABLES Final Result Performing Organization Address City/[facility]/ZIP Co de Phone Number NICOLE RAMOS [address] Department [place] [address] * (ABNORMAL) aPTT (09/06/2024 2:10 PM INTERNET MARKETING MANAGER) aPTT 26(L) 28 - 38 sec Comment: Interpretive Data Heparin therapeutic range: 66.0 - 100.0 seconds. Range based on correlation with therapeutic heparin activity range of 0.3 - 0.7 Units/mL. Current interpretive data was last revised on 2023. Blood 09/06/2024 2:10 PM INTERNET MARKETING MANAGER 09/06/2024 2:17 PM INTERNET MARKETING MANAGER Narrative NICOLE - 09/06/2024 2:32 PM INTERNET MARKETING MANAGER Baseline prior to enoxaparin initiation. Joey Oconnor NP LAB BLOOD ORDERABLES Final Result Performing Organization Address [facility] de Phone Number [facility] [address] [facility] [place] [address] * (ABNORMAL) Protime-INR (09/06/2024 2:10 PM INTERNET MARKETING MANAGER) PT 18.5(H) 9.7 - 13.0 sec INR 1.69(H) 0.90 - 1.20 NICOLE Comment: Interpretive data Oral anticoagulant therapeutic ranges: Venous thromboembolism prophylaxis or treatment: 2.0-3.0 CARDIOLOGY Standard range: 2.0-3.0 High-intensity range: 2.5-3.5 Refer to indication-specific guidelines for appropriate target ranges for prosthetic heart valve replacement. Current interpretive data was last revised on 2019. Blood 09/06/2024 2:10 PM INTERNET MARKETING MANAGER 09/06/2024 2:17 PM INTERNET MARKETING MANAGER Joey Oconnor SCHOOL INSPECTOR LAB BLOOD ORDERABLES Final Result Performing Organization Address [facility] de Phone Number [facility] [address] [facility] [place] [address] * Calcium, ionized, whole blood (09/06/2024 12:52 PM INTERNET MARKETING MANAGER) Ca, ionized, bld 4.86 4.50 - 5.10 mg/dL Blood 09/06/2024 12:5 2 PM INTERNET MARKETING MANAGER 09/06/2024 1:06 PM INTERNET MARKETING MANAGER Zoe Ureña SCHOOL INSPECTOR LAB BLOOD ORDERABLES F inal Result Performing Organization Address [facility]/ZIP Co de Phone Number NICOLE RAMOS [address] Department [place] [address] * eGFR (09/06/2024 12:52 PM INTERNET MARKETING MANAGER) eGFR 89 >=60 mL/min/1. 73 m2 Comment: Interpretive Data Reference Interval Normal >/= 90 mL/min/1.73m2 Mildly decreased* 60 - 89 mL/min/1.73m2 Mildly to moderately decreased 45 - 59 mL/min/1.73m2 Moderately to severely decreased 30 - 44 mL/min/1.73m2 Severely decreased 15 - 29 mL/min/1.73m2 Kidney Failure < 15 mL/min/1.73m2 *Relative to young adult level Estimated glomerular filtration rate is determined by the 2020 CKD-EPI equation recommended by the National Kidney Foundation (A Unifying Approach to GFR Estimation: Recommendations of the NKF-ASK Task Force on Reassessing the Inclusion of Race in Diagnosing Kidney Disease, JASN 2020). The CKD-EPI equation should not be used for patients with unstable renal function and has not been validated in children and those over 70. Current interpretive data was last reviewed 2021. Blood 09/06/2024 12:5 2 PM INTERNET MARKETING MANAGER 09/06/2024 1:09 PM INTERNET MARKETING MANAGER Zoe Ureña NP LAB BLOOD ORDERABLES F inal Result Performing Organization Address [facility] Co de Phone Number NICOLE RAMOS [phone] Department [place] [address] * Magnesium (09/06/2024 12:52 PM INTERNET MARKETING MANAGER) Magnesium 2.0 1.4 - 2.5 mg/dL Blood 09/06/2024 12:5 2 PM INTERNET MARKETING MANAGER 09/06/2024 1:06 PM INTERNET MARKETING MANAGER Zoe Ureña SCHOOL INSPECTOR LAB BLOOD ORDERABLES F inal Result Performing Organization Address City/[facility] Co de Phone Number NICOLE RAMOS [address] Department [place] [address] * (ABNORMAL) Renal function panel (09/06/2024 12:52 PM INTERNET MARKETING MANAGER) Sodium 140 135 - 145 mmol/L Potassium, pl 4.0 3.3 - 4.9 mmol/L [facility] Chloride 107 97 - 110 mmol/L [facility] CO2 27 22 - 32 mmol/L [facility] Anion gap 6 2 - 15 mmol/L [facility] BUN 17 6 - 25 mg/dL [facility] Creatinine 0.79 0.60 - 1.10 mg/dL [facility] Glucose 105 70 - 199 mg/dL [facility] Comment: Interpretive Data Fasting glucose >/= 126 mg/dl is diagnostic for diabetes. Fasting is defined as no caloric intake for at least 8 hours. Fasting glucose between 100 mg/dl to 125 mg/dl is diagnostic of prediabetes. In a patient with classic symptoms of hyperglycemia or hyperglycemic crisis, a random glucose >/= 200 mg/dl is diagnostic for diabetes. In the absence of unequivocal hyperglycemia, results should be confirmed by repeat testing. The classification and Diagnosis of Diabetes Diabetes Care 2021; 46: S19-S40. Current interpretive data was last revised 2022. Calcium 8.6 8.5 - 10.3 mg/dL [facility] Phosphorus, pl 2.4 2.3 - 4.5 mg/dL [facility] Albumin 3.4(L) 3.5 - 5.0 g/dL [facility] Blood 09/06/2024 12:5 2 PM INTERNET MARKETING MANAGER 09/06/2024 1:06 PM INTERNET MARKETING MANAGER Zoe Ureña SCHOOL INSPECTOR LAB BLOOD ORDERABLES F inal Result [facility] [address] [address] Department [place] [address] * POCT glucose (09/06/2024 11:55 AM INTERNET MARKETING MANAGER) Glucose, POC 101 70 - 199 mg/dL Blood 09/06/2024 11:5 5 AM INTERNET MARKETING MANAGER 09/06/2024 11:55 AM INTERNET MARKETING MANAGER Ze Boucher MD LAB POCT ORDERABLES - DEVICE F inal Result Performing Organization Address [facility]/ZIP Co de Phone Number NICOLE RAMOS [address] [facility] [place] [address] * POCT glucose (09/06/2024 7:33 AM INTERNET MARKETING MANAGER) Glucose, POC 106 70 - 199 mg/dL Blood 09/06/2024 7:33 AM INTERNET MARKETING MANAGER 09/06/2024 7:33 AM INTERNET MARKETING MANAGER Ze Boucher MD LAB POCT ORDERABLES - DEVICE F inachad Result Performing Organization Address [facility] Co de Phone Number NICOLE RAMOS [address] [place] [address] * Critical Care (09/06/2024 7:00 AM INTERNET MARKETING MANAGER) Narrative Lenin Huff MD - 09/06/2024 7:00 AM INTERNET MARKETING MANAGER Zoe Ureña NP 09/06/2024 3:56 PM Critical Care Performed by: Zoe Ureña NP Authorized by: Zoe Ureña NP CRITICAL CARE: Team: CHELSIE Shift: AM Level of Billing: Critical Care My time spent with this patient was 60 minutes: Critical Provider Statement: I have seen and examined the patient on this day of service. I have reviewed and confirmed the history, physical exam, laboratory and radiologic data as documented in the signed ICU note. I have reviewed and discussed my treatment plan with the ICU team and other medical/networks software consultant staff, making frequent assessments and decisions regarding this patient's complex medical care. Critical Care time was exclusive of time spent performing separately billed procedures, treating other patients, and teaching. This time was in addition to and separate from critical care provided by other practitioners in my group on this day of service. Critical Care was necessary to treat or prevent imminent or life-threatening deterioration of the following conditions: I spent time talking to this patient's surrogate decision maker to determine treatment plans due to patient's inability to participate in decision making, I spent time talking to this patient's relatives to obtain additional medical history due to patient's inabililty to provide history, I spent time documenting in the medical record, I spent time discussing the management of this critically ill patient with consultants and the medical staff and I spent time reviewing and interpreting data from bedside monitors, laboratory results, and imaging Zoe Ureña NP IN CLINIC/BEDSIDE ALBERTA GONZALEZ Final Result * XR Chest 1 View - Portable - in AM (09/06/2024 5:34 AM INTERNET MARKETING MANAGER) Anatomical Region Laterality Modality Body, Chest N/A Computed Radiogr aphy 09/06/2024 8:19 AM INTERNET MARKETING MANAGER Impressions 09/06/2024 8:19 AM INTERNET MARKETING MANAGER Improvement. Some residual atelectasis fluid left base. Electronically signed by: Dick Renteria M.D. Narrative 09/06/2024 8:19 AM INTERNET MARKETING MANAGER EXAMINATION: XR CHEST 1 VIEW DATE: 09/06/2024 5:25 AM HISTORY: Cardiac surgery follow-up FINDINGS:Compared with the study of the prior day, postsurgical changes in the heart and mediastinum. Heart size stable. Central sheath superior vena cava. Residual atelectasis and fluid left base. Improvement pulmonary vascularity. No pneumothorax Procedure Note Dick Renteria MD - 09/06/2024 EXAMINATION: XR CHEST 1 VIEW DATE: 09/06/2024 5:25 AM HISTORY: Cardiac surgery follow-up FINDINGS:Compared with the study of the prior day, postsurgical changes in the heart and mediastinum. Heart size stable. Central sheath superior vena cava. Residual atelectasis and fluid left base. Improvement pulmonary vascularity. No pneumothorax IMPRESSION: Improvement. Some residual atelectasis fluid left base. Electronically signed by: Dick Renteria M.D. Ze Boucher MD IMG XR PROCEDURES Final Result * eGFR (09/06/2024 3:28 AM INTERNET MARKETING MANAGER) eGFR >90 >=60 mL/min/1. 73 m2 Comment: Interpretive Data Reference Interval Normal >/= 90 mL/min/1.73m2 Mildly decreased* 60 - 89 mL/min/1.73m2 Mildly to moderately decreased 45 - 59 mL/min/1.73m2 Moderately to severely decreased 30 - 44 mL/min/1.73m2 Severely decreased 15 - 29 mL/min/1.73m2 Kidney Failure < 15 mL/min/1.73m2 *Relative to young adult level Estimated glomerular filtration rate is determined by the 2020 CKD-EPI equation recommended by the National Kidney Foundation (A Unifying Approach to GFR Estimation: Recommendations of the NKF-ASK Task Force on Reassessing the Inclusion of Race in Diagnosing Kidney Disease, JASN 2020). The CKD-EPI equation should not be used for patients with unstable renal function and has not been validated in children and those over 70. Current interpretive data was last reviewed 2021. Blood 09/06/2024 3:28 AM INTERNET MARKETING MANAGER 09/06/2024 3:40 AM INTERNET MARKETING MANAGER us Ze Boucher MD LAB BLOOD ORDERABLES Final Res ult [facility] [address] Department [place] [address] * (ABNORMAL) CBC without differential (09/06/2024 3:28 AM INTERNET MARKETING MANAGER) WBC 10.1(H) 3.8 - 9.9 K/cumm Hgb 10.9(L) 11.9 - 15.5 g/dL [facility] Hct 33.6(L) 35.6 - 45.5 % [facility] Plt 88(L) 150 - 400 K/cumm [facility] MPV 10.6 9.1 - 12.3 fL [facility] RBC 3.85(L) 3.90 - 5.20 M/cumm [facility] MCV 87.3 81.3 - 96.4 fL [facility] MCH 28.3 27.1 - 33.3 pg [facility] MCHC 32.4 32.3 - 35.7 g/dL [facility] RDW CV 12.6 11.1 - 14.9 % [facility] RDW SD 40.2 35.7 - 48.1 fL [facility] NRBC abs 0.00 0.00 - 0.01 K/cumm [facility] Blood 09/06/2024 3:28 AM INTERNET MARKETING MANAGER 09/06/2024 3:40 AM INTERNET MARKETING MANAGER Ze Boucher MD LAB BLOOD ORDERABLES Final Res ult Performing Organization Address [facility] Co de Phone Number NICOLE RAMOS [phone] [address] [facility] [place] [address] * Phosphorus (09/06/2024 3:28 AM INTERNET MARKETING MANAGER) Phosphorus, pl 2.5 2.3 - 4.5 mg/dL Blood 09/06/2024 3:28 AM INTERNET MARKETING MANAGER 09/06/2024 3:37 AM INTERNET MARKETING MANAGER Jessica Martinez NP LAB BLOOD ORDERABLES Fin al Result Performing Organization Address [facility] Co de Phone Number FACUNDOJYOTI RAMOS [address] [address] [facility] [place] [address] * Magnesium (09/06/2024 3:28 AM INTERNET MARKETING MANAGER) Magnesium 2.1 1.4 - 2.5 mg/dL Blood 09/06/2024 3:28 AM INTERNET MARKETING MANAGER 09/06/2024 3:37 AM INTERNET MARKETING MANAGER Ze Boucher MD LAB BLOOD ORDERABLES Final Res ult Performing Organization Address [facility] de Phone Number FACUNDOJYOTI RAMOS [address] [address] [facility] [place] [address] * Basic metabolic panel (09/06/2024 3:28 AM INTERNET MARKETING MANAGER) Sodium 140 135 - 145 mmol/L Potassium, pl 4.0 3.3 - 4.9 mmol/L C[facility] Chloride 107 97 - 110 mmol/L [facility] CO2 24 22 - 32 mmol/L [facility] Anion gap 9 2 - 15 mmol/L [facility] BUN 14 6 - 25 mg/dL [facility] Creatinine 0.74 0.60 - 1.10 mg/dL [facility] Glucose 120 70 - 199 mg/dL [facility] Comment: Interpretive Data Fasting glucose >/= 126 mg/dl is diagnostic for diabetes. Fasting is defined as no caloric intake for at least 8 hours. Fasting glucose between 100 mg/dl to 125 mg/dl is diagnostic of prediabetes. In a patient with classic symptoms of hyperglycemia or hyperglycemic crisis, a random glucose >/= 200 mg/dl is diagnostic for diabetes. In the absence of unequivocal hyperglycemia, results should be confirmed by repeat testing. The classification and Diagnosis of Diabetes Diabetes Care 2021; 46: S19-S40. Current interpretive data was last revised 2022. Calcium 8.5 8.5 - 10.3 mg/dL [facility] Blood 09/06/2024 3:28 AM INTERNET MARKETING MANAGER 09/06/2024 3:37 AM INTERNET MARKETING MANAGER Ze Boucher MD LAB BLOOD ORDERABLES Final Res ult Performing Organization Address [facility] Co de Phone Number [facility] [address] [address] [address] * POCT glucose (09/05/2024 9:00 PM INTERNET MARKETING MANAGER) Glucose, POC 120 70 - 199 mg/dL Blood 09/05/2024 9:00 PM INTERNET MARKETING MANAGER 09/05/2024 9:00 PM INTERNET MARKETING MANAGER Result [facility] Ze Boucher MD LAB POCT ORDERABLES - DEVICE F inal Result Performing Organization Address [facility] Co de Phone Number [facility] [address] [address] [facility] [place] [address] * POCT glucose (09/05/2024 5:08 PM INTERNET MARKETING MANAGER) Glucose, POC 126 70 - 199 mg/dL Blood 09/05/2024 5:08 PM INTERNET MARKETING MANAGER 09/05/2024 5:08 PM INTERNET MARKETING MANAGER Ze Boucher MD LAB POCT ORDERABLES - DEVICE F inal Result Performing Organization Address [facility] Co de Phone Number NICOLE RAMOS [address] [address] Department of Laboratories [place], [place] [id number] * eGFR (09/05/2024 3:29 PM INTERNET MARKETING MANAGER) eGFR >90 >=60 mL/min/1. 73 m2 Comment: Interpretive Data Reference Interval Normal >/= 90 mL/min/1.73m2 Mildly decreased* 60 - 89 mL/min/1.73m2 Mildly to moderately decreased 45 - 59 mL/min/1.73m2 Moderately to severely decreased 30 - 44 mL/min/1.73m2 Severely decreased 15 - 29 mL/min/1.73m2 Kidney Failure < 15 mL/min/1.73m2 *Relative to young adult level Estimated glomerular filtration rate is determined by the 2020 CKD-EPI equation recommended by the National Kidney Foundation (A Unifying Approach to GFR Estimation: Recommendations of the NKF-ASK Task Force on Reassessing the Inclusion of Race in Diagnosing Kidney Disease, JASN 2020). The CKD-EPI equation should not be used for patients with unstable renal function and has not been validated in children and those over 70. Current interpretive data was last reviewed 2021. Blood 09/05/2024 3:29 PM INTERNET MARKETING MANAGER 09/05/2024 3:30 PM INTERNET MARKETING MANAGER Ze Boucher MD LAB BLOOD ORDERABLES Final Res ult Performing Organization Address City/[facility]/ZIP Co de Phone Number NICOLE RAMOS [address] [address] Department [place] [address] * (ABNORMAL) CBC without differential (09/05/2024 3:29 PM INTERNET MARKETING MANAGER) WBC 12.7(H) 3.8 - 9.9 K/cumm Hgb 11.7(L) 11.9 - 15.5 g/dL [facility] Hct 35.3(L) 35.6 - 45.5 % [facility] Plt 95(L) 150 - 400 K/cumm [facility] MPV 11.2 9.1 - 12.3 fL [facility] RBC 4.05 3.90 - 5.20 M/cumm [facility] MCV 87.2 81.3 - 96.4 fL [facility] MCH 28.9 27.1 - 33.3 pg [facility] MCHC 33.1 32.3 - 35.7 g/dL [facility] RDW CV 12.8 11.1 - 14.9 % [facility] RDW SD 40.8 35.7 - 48.1 fL [facility] NRBC abs 0.00 0.00 - 0.01 K/cumm [facility] Blood 09/05/2024 3:29 PM INTERNET MARKETING MANAGER 09/05/2024 3:30 PM INTERNET MARKETING MANAGER Ze Boucher MD LAB BLOOD ORDERABLES Final Res ult Performing Organization Address [facility] Co de Phone Number [facility] [address] [address] [facility] [place] [address] * Magnesium (09/05/2024 3:29 PM INTERNET MARKETING MANAGER) Pathologist [facility] Magnesium 2.1 1.4 - 2.5 mg/dL Blood 09/05/2024 3:29 PM INTERNET MARKETING MANAGER 09/05/2024 3:30 PM INTERNET MARKETING MANAGER Ze Boucher MD LAB BLOOD ORDERABLES Final Res ult Performing Organization Address [facility] de Phone Number [facility] [address] [address] [facility] [place] [address] * Basic metabolic panel (09/05/2024 3:29 PM INTERNET MARKETING MANAGER) Sodium 138 135 - 145 mmol/L Potassium, pl 4.0 3.3 - 4.9 mmol/L [facility] Chloride 105 97 - 110 mmol/L [facility] CO2 24 22 - 32 mmol/L [facility] Anion gap 9 2 - 15 mmol/L [facility] BUN 10 6 - 25 mg/dL [facility] Creatinine 0.76 0.60 - 1.10 mg/dL [facility] Glucose 140 70 - 199 mg/dL [facility] Comment: Interpretive Data Fasting glucose >/= 126 mg/dl is diagnostic for diabetes. Fasting is defined as no caloric intake for at least 8 hours. Fasting glucose between 100 mg/dl to 125 mg/dl is diagnostic of prediabetes. In a patient with classic symptoms of hyperglycemia or hyperglycemic crisis, a random glucose >/= 200 mg/dl is diagnostic for diabetes. In the absence of unequivocal hyperglycemia, results should be confirmed by repeat testing. The classification and Diagnosis of Diabetes Diabetes Care 2021; 46: S19-S40. Current interpretive data was last revised 2022. Calcium 8.5 8.5 - 10.3 mg/dL [facility] Blood 09/05/2024 3:29 PM INTERNET MARKETING MANAGER 09/05/2024 3:30 PM INTERNET MARKETING MANAGER Ze Boucher MD LAB BLOOD ORDERABLES Final Res ult Performing Organization Address [facility] Co de Phone Number [facility] [address] [address] [address] * Calcium, ionized, whole blood (09/05/2024 3:25 PM INTERNET MARKETING MANAGER) Ca, ionized, bld 4.65 4.50 - 5.10 mg/dL Blood 09/05/2024 3:25 PM INTERNET MARKETING MANAGER 09/05/2024 3:29 PM INTERNET MARKETING MANAGER Ze Boucher MD LAB BLOOD ORDERABLES Final Res ult Performing Organization Address [facility] de Phone Number [facility] [address] [address] [place] [address] * POCT glucose (09/05/2024 12:46 PM INTERNET MARKETING MANAGER) Glucose, POC 134 70 - 199 mg/dL Blood 09/05/2024 12:4 6 PM INTERNET MARKETING MANAGER 09/05/2024 12:46 PM INTERNET MARKETING MANAGER Ze Boucher MD LAB POCT ORDERABLES - DEVICE F inal Result Performing Organization Address [facility] Co de Phone Number [facility] [address] [address] Department [place] [address] * ECG 12 lead (09/05/2024 8:41 AM INTERNET MARKETING MANAGER) 09/05/2024 8:41 AM INTERNET MARKETING MANAGER Narrative [facility] - 09/05/2024 11:12 AM INTERNET MARKETING MANAGER Vent Rate: 96 bpm RR Interval: 624 msec TX Interval: 135 msec QRS Duration: 83 msec QT Interval: 368 msec QTC Interval: 421 msec P-R-T Olive: 7 - 1 - 10 degrees IMPRESSION: SINUS RHYTHM POSSIBLE INFERIOR MYOCARDIAL INFARCTION , PROBABLY OLD [30 ms Q WAVE IN II/aVF] BORDERLINE ECG Electronically Signed By: Dr. Matilda Guo [facility] us Ze Boucher MD ECG ORDERABLES Final Result [facility] * (ABNORMAL) CBC without differential (09/05/2024 7:51 AM INTERNET MARKETING MANAGER) WBC 11.7(H) 3.8 - 9.9 K/cumm Hgb 11.5(L) 11.9 - 15.5 g/dL [facility] Hct 35.4(L) 35.6 - 45.5 % [facility] Plt 104(L) 150 - 400 [facility] MPV 11.1 9.1 - 12.3 fL [facility] RBC 4.03 3.90 - 5.20 M/cumm [facility] MCV 87.8 81.3 - 96.4 fL [facility] MCH 28.5 27.1 - 33.3 pg [facility] MCHC 32.5 32.3 - 35.7 g/dL [facility] RDW CV 12.8 11.1 - 14.9 % [facility] RDW SD 41.6 35.7 - 48.1 fL [facility] NRBC abs 0.00 0.00 - 0.01 K/cumm [facility] Blood 09/05/2024 7:51 AM INTERNET MARKETING MANAGER 09/05/2024 8:02 AM INTERNET MARKETING MANAGER Narrative [facility] - 09/05/2024 8:40 AM INTERNET MARKETING MANAGER Baseline prior to warfarin initiation. Ze Boucher MD LAB BLOOD ORDERABLES Final Res ult Performing Organization Address [facility] de Phone Number NICOLE RAMOS [address] [address] [facility] [place] [address] * (ABNORMAL) aPTT (09/05/2024 7:47 AM INTERNET MARKETING MANAGER) aPTT 27(L) 28 - 38 sec Comment: Interpretive Data Heparin therapeutic range: 66.0 - 100.0 seconds. Range based on correlation with therapeutic heparin activity range of 0.3 - 0.7 Units/mL. Current interpretive data was last revised on 2023. Blood 09/05/2024 7:47 AM INTERNET MARKETING MANAGER 09/05/2024 8:02 AM INTERNET MARKETING MANAGER Narrative NICOLE - 09/05/2024 8:48 AM INTERNET MARKETING MANAGER Baseline prior to warfarin initiation. Ze Boucher MD LAB BLOOD ORDERABLES Final Res ult Performing Organization Address [facility] de Phone Number FACUNDOJYOTI RAMOS [phone] [address] [facility] [place] [address] * Protime-INR (09/05/2024 7:47 AM INTERNET MARKETING MANAGER) PT 11.2 9.7 - 13.0 sec INR 1.04 0.90 - 1.20 NICOLE Comment: Interpretive data Oral anticoagulant therapeutic ranges: Venous thromboembolism prophylaxis or treatment: 2.0-3.0 CARDIOLOGY Standard range: 2.0-3.0 High-intensity range: 2.5-3.5 Refer to indication-specific guidelines for appropriate target ranges for prosthetic heart valve replacement. Current interpretive data was last revised on 2019. Blood 09/05/2024 7:47 AM INTERNET MARKETING MANAGER 09/05/2024 8:02 AM INTERNET MARKETING MANAGER Narrative NICOLE - 09/05/2024 8:45 AM INTERNET MARKETING MANAGER Baseline prior to warfarin initiation. Ze Boucher MD LAB BLOOD ORDERABLES Final Res ult Performing Organization Address [facility]/[place] [address] [address] Department [place] [address] * Critical Care (09/05/2024 7:05 AM INTERNET MARKETING MANAGER) Narrative Lenin Huff MD - 09/05/2024 7:05 AM INTERNET MARKETING MANAGER Jessica Martinez NP 09/05/2024 7:30 AM Critical Care Performed by: Jessica Martinez NP Authorized by: Jessica Martinez NP CRITICAL CARE: Team: CHELSIE Shift: AM Level of Billing: Critical Care My time spent with this patient was 90 minutes: Critical Provider Statement: I have seen and examined the patient on this day of service. I have reviewed and confirmed the history, physical exam, laboratory and radiologic data as documented in the signed ICU note. I have reviewed and discussed my treatment plan with the ICU team and other medical/networks software consultant staff, making frequent assessments and decisions regarding this patient's complex medical care. Critical Care time was exclusive of time spent performing separately billed procedures, treating other patients, and teaching. This time was in addition to and separate from critical care provided by other practitioners in my group on this day of service. Critical Care was necessary to treat or prevent imminent or life-threatening deterioration of the following conditions: I spent time reviewing and interpreting data from bedside monitors, laboratory results, and imaging, I spent time discussing the management of this critically ill patient with consultants and the medical staff and I spent time documenting in the medical record Jessica Martinez SCHOOL INSPECTOR IN CLINIC/BEDSIDE ORDERA BLES Final Result * POCT glucose (09/05/2024 7:05 AM INTERNET MARKETING MANAGER) Glucose, POC 146 70 - 199 mg/dL Blood 09/05/2024 7:05 AM INTERNET MARKETING MANAGER 09/05/2024 7:05 AM INTERNET MARKETING MANAGER Ze Boucher MD LAB POCT ORDERABLES - DEVICE F inal Result Performing Organization Address [facility]/[place] [address] [address] Department [place] [address] * XR Chest 1 View - Portable - in AM (09/05/2024 5:47 AM INTERNET MARKETING MANAGER) Anatomical Region Laterality Modality Body, Chest N/A Computed Radiogr aphy 09/05/2024 8:37 AM INTERNET MARKETING MANAGER Impressions 09/05/2024 8:37 AM INTERNET MARKETING MANAGER Improvement in the left perihilar infiltrate. Residual fluid and atelectasis left base. Extubation.. Electronically signed by: Dick Renteria M.D. Narrative 09/05/2024 8:37 AM INTERNET MARKETING MANAGER EXAMINATION: XR CHEST 1 VIEW DATE: 09/05/2024 5:20 AM HISTORY: Cardiac surgery follow-up FINDINGS:Compared with study the previous day, patient extubated. Postsurgical changes in the heart and mediastinum with stable heart size. Improved aeration in the left perihilar region. No failure or pneumothorax. Left basilar atelectasis and fluid. Procedure Note Dick Renteria MD - 09/05/2024 EXAMINATION: XR CHEST 1 VIEW DATE: 09/05/2024 5:20 AM HISTORY: Cardiac surgery follow-up FINDINGS:Compared with study the previous day, patient extubated. Postsurgical changes in the heart and mediastinum with stable heart size. Improved aeration in the left perihilar region. No failure or pneumothorax. Left basilar atelectasis and fluid. IMPRESSION: Improvement in the left perihilar infiltrate. Residual fluid and atelectasis left base. Extubation.. Electronically signed by: Dick Renteria M.D. Ze Boucher MD IMG XR PROCEDURES Final Result * Oxyhemoglobin, pulmonary artery (09/05/2024 3:49 AM INTERNET MARKETING MANAGER) Oxyhemoglobin, PA 70.1 % Comment: Interpretive Data No reference range established. Current interpretive data was last revised 2019. Blood 09/05/2024 3:49 AM INTERNET MARKETING MANAGER 09/05/2024 4:00 AM INTERNET MARKETING MANAGER Jessica Martinez SCHOOL INSPECTOR LAB BLOOD ORDERABLES Fin al Result NICOLE RAMOS [address] Department of Laboratories [place], [place] [id number] * eGFR (09/05/2024 3:49 AM INTERNET MARKETING MANAGER) eGFR 80 >=60 mL/min/1. 73 m2 Comment: Interpretive Data Reference Interval Normal >/= 90 mL/min/1.73m2 Mildly decreased* 60 - 89 mL/min/1.73m2 Mildly to moderately decreased 45 - 59 mL/min/1.73m2 Moderately to severely decreased 30 - 44 mL/min/1.73m2 Severely decreased 15 - 29 mL/min/1.73m2 Kidney Failure < 15 mL/min/1.73m2 *Relative to young adult level Estimated glomerular filtration rate is determined by the 2020 CKD-EPI equation recommended by the National Kidney Foundation (A Unifying Approach to GFR Estimation: Recommendations of the NKF-ASK Task Force on Reassessing the Inclusion of Race in Diagnosing Kidney Disease, JASN 2020). The CKD-EPI equation should not be used for patients with unstable renal function and has not been validated in children and those over 70. Current interpretive data was last reviewed 2021. Blood 09/05/2024 3:49 AM INTERNET MARKETING MANAGER 09/05/2024 4:02 AM INTERNET MARKETING MANAGER us Ze Boucher MD LAB BLOOD ORDERABLES Final Res ult Performing Organization Address City/[facility]/ZIP Co de Phone Number NICOLE RAMOS [address] Department [place] [address] * (ABNORMAL) Differential, auto (09/05/2024 3:49 AM INTERNET MARKETING MANAGER) Neutrophil abs 8.8(H) 1.5 - 6.5 K/cumm Imm gran abs 0.1 0.0 - 0.1 K/cumm [facility] Lymphocyte abs 1.0 0.8 - 3.3 K/cumm [facility] Monocyte abs 0.9(H) 0.2 - 0.8 K/cumm [facility] Eosinophil abs 0.0 0.0 - 0.5 K/cumm [facility] Basophil abs 0.0 0.0 - 0.1 K/cumm [facility] Neutrophil pct 81.4 % [facility] Comment: Interpretive Data Percent cell count reference ranges are not reported, since discordance with absolute values may lead to misinterpretation of CBC data. Current Interpretive Data was last revised on 2017. Imm gran pct 0.6 % [facility] Comment: Interpretive Data Percent cell count reference ranges are not reported, since discordance with absolute values may lead to misinterpretation of CBC data. Current Interpretive Data was last revised on 2017. Lymphocyte pct 9.2 % [facility] Comment: Interpretive Data Percent cell count reference ranges are not reported, since discordance with absolute values may lead to misinterpretation of CBC data. Current Interpretive Data was last revised on 2017. Monocyte pct 8.6 % [facility] Comment: Interpretive Data Percent cell count reference ranges are not reported, since discordance with absolute values may lead to misinterpretation of CBC data. Current Interpretive Data was last revised on 2017. Eosinophil pct 0.0 % [facility] Comment: Interpretive Data Percent cell count reference ranges are not reported, since discordance with absolute values may lead to misinterpretation of CBC data. Current Interpretive Data was last revised on 2017. Basophil pct 0.2 % [facility] Comment: Interpretive Data Percent cell count reference ranges are not reported, since discordance with absolute values may lead to misinterpretation of CBC data. Current Interpretive Data was last revised on 2017. Blood 09/05/2024 3:49 AM INTERNET MARKETING MANAGER 09/05/2024 4:02 AM INTERNET MARKETING MANAGER us Ze Boucher MD LAB BLOOD ORDERABLES Final Res ult NICOLE [address] Department [place] [address] * (ABNORMAL) Thyroid Function [place] (09/05/2024 3:49 AM INTERNET MARKETING MANAGER) TSH 0.21(L) 0.30 - 4.20 mcIUnit/mL Blood 09/05/2024 3:49 AM INTERNET MARKETING MANAGER 09/05/2024 4:02 AM INTERNET MARKETING MANAGER us Jessica Martinez NP LAB BLOOD ORDERABLES Fin al Result Performing Organization Address City/[facility]/ZIP Co de Phone Number NICOLE RAMOS [address] Department [place] [address] * (ABNORMAL) CBC with auto differential (09/05/2024 3:49 AM INTERNET MARKETING MANAGER) WBC 10.8(H) 3.8 - 9.9 K/cumm Hgb 11.7(L) 11.9 - 15.5 g/dL [facility] Hct 35.9 35.6 - 45.5 % [facility] Plt 101(L) 150 - 400 K/cumm [facility] MPV 10.5 9.1 - 12.3 fL [facility] RBC 4.10 3.90 - 5.20 M/cumm [facility] MCV 87.6 81.3 - 96.4 fL [facility] MCH 28.5 27.1 - 33.3 pg [facility] MCHC 32.6 32.3 - 35.7 g/dL [facility] RDW CV 12.7 11.1 - 14.9 % [facility] RDW SD 40.8 35.7 - 48.1 fL [facility] NRBC abs 0.00 0.00 - 0.01 K/cumm [facility] Blood 09/05/2024 3:49 AM INTERNET MARKETING MANAGER 09/05/2024 4:02 AM INTERNET MARKETING MANAGER Ze Boucher MD LAB BLOOD ORDERABLES Final Res ult NICOLE RAMOS [address] Department [place] [address] * T3, free (09/05/2024 3:49 AM INTERNET MARKETING MANAGER) Free T3 3.0 2.0 - 4.4 pg/mL Blood 09/05/2024 3:49 AM INTERNET MARKETING MANAGER 09/05/2024 4:02 AM INTERNET MARKETING MANAGER Narrative NICOLE Overton 09/05/2024 12:49 PM INTERNET MARKETING MANAGER This test was reflexed from a Free T4 result. Jessica Martinez SCHOOL INSPECTOR LAB BLOOD ORDERABLES Fin al Result Performing Organization Address [facility] Co de Phone Number NICOLE [address] [facility] [place] [address] * T4, free (09/05/2024 3:49 AM INTERNET MARKETING MANAGER) Free T4 1.07 0.90 - 1.70 ng/dL Blood 09/05/2024 3:49 AM INTERNET MARKETING MANAGER 09/05/2024 4:02 AM INTERNET MARKETING MANAGER Jessica Martinez NP LAB BLOOD ORDERABLES Fin al Result Performing Organization Address [facility] Phone Number FACUNDOJYOTI [address] [facility] [place] [address] * Phosphorus (09/05/2024 3:49 AM INTERNET MARKETING MANAGER) Phosphorus, pl 4.0 2.3 - 4.5 mg/dL Blood 09/05/2024 3:49 AM INTERNET MARKETING MANAGER 09/05/2024 4:02 AM INTERNET MARKETING MANAGER Jessica Martinez NP LAB BLOOD ORDERABLES Fin al Result Performing Organization Address [facility] de Phone Number FACUNDOJYOTI [address] [place] [address] * Magnesium (09/05/2024 3:49 AM INTERNET MARKETING MANAGER) Magnesium 2.3 1.4 - 2.5 mg/dL Blood 09/05/2024 3:49 AM INTERNET MARKETING MANAGER 09/05/2024 4:02 AM INTERNET MARKETING MANAGER Ze Boucher MD LAB BLOOD ORDERABLES Final Res ult Performing Organization Address [facility] Co de Phone Number FACUNDOJYOTI [address] [facility] [place] [address] * Hemoglobin A1c (09/05/2024 3:49 AM INTERNET MARKETING MANAGER) Hgb A1C 5.3 4.0 - 5.6 % Estimated Average Glucose 105 mg/dL NICOLE RAMOS Comment: The ADA recommends reporting an estimated Average Glucose (eAG) with all Hemoglobin A1c results using the equation derived from a study of 507 normal and diabetic adults. Minority populations were underrepresented and children were not included. (Diabetes Care 31:0222-1436, 2008). The eAG is not equivalent to a fasting glucose. Blood 09/05/2024 3:49 AM INTERNET MARKETING MANAGER 09/05/2024 4:02 AM INTERNET MARKETING MANAGER Jessica Martinez NP LAB BLOOD ORDERABLES Fin al Result NICOLE [address] Department [place] [address] * Lipid panel (09/05/2024 3:49 AM INTERNET MARKETING MANAGER) Cholesterol 90 30 - 199 mg/dL Comment: Interpretive Data Ages < or = 19 years Acceptable: <170 mg/dL Borderline high: 170-199 mg/dL High: >or= 200 mg/dL Ages > or = 20 years Desirable: <200 mg/dL Borderline high: 200-239 mg/dL High: >or= 240 mg/dL Literature References: 1. Expert Panel on Integrated Guidelines for Cardiovascular Health and Risk Reduction in Children and Adolescents. Pediatrics 2011;128:S213 2. NCEP Expert Panel. Circulation 2004;110:227 Current Interpretive Data was last revised on 2018. Triglycerides 89 <=149 mg/dL NICOLE RAMOS Comment: Interpretive Data Ages < or = 9 years Acceptable: <75 mg/dL Borderline high: 75-99 mg/dL High: >or= 100 mg/dL Ages 10 to 20 years Acceptable: <90 mg/dL Borderline high: 90-129 mg/dL High: >or= 130 mg/dL Ages > or = 20 years Desirable: <150 mg/dL Borderline high: 150-199 mg/dL High: 200-499 mg/dL Very high: >or= 499 mg/dL Literature References: 1. Expert Panel on Integrated Guidelines for Cardiovascular Health and Risk Reduction in Children and Adolescents. Pediatrics 2011;128:S213 2. NCEP Expert Panel. Circulation 2004;110:227 Current Interpretive Data was last revised on 2018. HDL 41 >=40 mg/dL NICOLE RAMOS Comment: Interpretive Data Ages < or = 19 years Acceptable: >45 mg/dL Borderline low: 40-45 mg/dL Low: <40 mg/dL Ages > or = 20 years Desirable: >or= 60 mg/dL Low: <40 mg/dL Literature References: 1. Expert Panel on Integrated Guidelines for Cardiovascular Health and Risk Reduction in Children and Adolescents. Pediatrics 2011;128:S213 2. NCEP Expert Panel. Circulation 2004;110:227 Current Interpretive Data was last revised on 2018. LDL, calculated 31 <=129 mg/dL NICOLE RAMOS Comment: Interpretive Data Ages < or = 19 years Acceptable: <110 mg/dL Borderline high: 110-129 mg/dL High: >or= 130 mg/dL Ages > or = 20 years Optimal: <100 mg/dL Near optimal: 100-129 mg/dL Borderline high: 130-159 mg/dL High: >160 mg/dL Calculated using the Yogesh LDL-C estimating equation. This equation was implemented on 2024. Prior to this date LDL-C was estimated using the Friedewald equation. Literature References: 1. Expert Panel on Integrated Guidelines for Cardiovascular Health and Risk Reduction in Children and Adolescents. Pediatrics 2011;128:S213 2. NCEP Expert Panel. Circulation 2004;110:227 3. Yogesh Cole et al. JOEY Cardiol. 2020 November 29;5(5):540-548. doi: 10.1001/jamacardio.2020.0013 Current Interpretive Data was last revised on 2024. Non-HDL Cholesterol 49 mg/dL NICOLE RAMOS Comment: Interpretive Data Ages < or = 19 years Acceptable: <120 mg/dL Borderline high: 120-144 mg/dL High: >145 mg/dL Ages > or = 20 years When triglycerides are >200 mg/dL, Non-HDL cholesterol is a secondary target of therapy with treatment goals that are 30 mg/dL greater than the LDL cholesterol target. Literature References: 1. Expert Panel on Integrated Guidelines for Cardiovascular Health and Risk Reduction in Children and Adolescents. Pediatrics 2011;128:S213 2. NCEP Expert Panel. Circulation 2004;110:227 Current Interpretive Data was last revised on 2018. Chol/HDL ratio 2 [facility] Blood 09/05/2024 3:49 AM INTERNET MARKETING MANAGER 09/05/2024 4:02 AM INTERNET MARKETING MANAGER Jessica Martinez NP LAB BLOOD ORDERABLES Fin al Result Performing Organization Address [facility] [place] [address] Department [place] [address] * (ABNORMAL) Basic metabolic panel (09/05/2024 3:49 AM INTERNET MARKETING MANAGER) Sodium 143 135 - 145 mmol/L Potassium, pl 4.8 3.3 - 4.9 mmol/L [facility] Chloride 111(H) 97 - 110 mmol/L [facility] CO2 22 22 - 32 mmol/L [facility] Anion gap 10 2 - 15 mmol/L [facility] BUN 12 6 - 25 mg/dL [facility] Creatinine 0.86 0.60 - 1.10 mg/dL [facility] Glucose 134 70 - 199 mg/dL [facility] Comment: Interpretive Data Fasting glucose >/= 126 mg/dl is diagnostic for diabetes. Fasting is defined as no caloric intake for at least 8 hours. Fasting glucose between 100 mg/dl to 125 mg/dl is diagnostic of prediabetes. In a patient with classic symptoms of hyperglycemia or hyperglycemic crisis, a random glucose >/= 200 mg/dl is diagnostic for diabetes. In the absence of unequivocal hyperglycemia, results should be confirmed by repeat testing. The classification and Diagnosis of Diabetes Diabetes Care 202; 46: S19-S40. Current interpretive data was last revised 2022. Calcium 8.3(L) 8.5 - 10.3 mg/dL [facility] Blood 09/05/2024 3:49 AM INTERNET MARKETING MANAGER 09/05/2024 4:02 AM INTERNET MARKETING MANAGER Ze Boucher MD LAB BLOOD ORDERABLES Final Res ult Performing Organization Address City/[facility]/[place] Number [place] [address] [address] Department [place] [address] * POCT glucose (09/05/2024 2:19 AM INTERNET MARKETING MANAGER) Glucose, POC 132 70 - 199 mg/dL Blood 09/05/2024 2:19 AM INTERNET MARKETING MANAGER 09/05/2024 2:19 AM INTERNET MARKETING MANAGER Ze Boucher MD LAB POCT ORDERABLES - DEVICE F inal Result Performing Organization Address [facility] [place] [address] [address] Department [place] [address] * Critical Care (09/04/2024 11:38 PM INTERNET MARKETING MANAGER) Narrative Cullen Lezama MD - 09/04/2024 11:38 PM INTERNET MARKETING MANAGER Fito Nation PA 09/05/2024 2:57 AM Critical Care Performed by: Fito Nation PA Authorized by: Fito Nation PA CRITICAL CARE: Team: CHELSIE Shift: PM Level of Billing: Critical Care My time spent with this patient was 75 minutes: Critical Provider Statement: I have seen and examined the patient on this day of service. I have reviewed and confirmed the history, physical exam, laboratory and radiologic data as documented in the signed ICU note. I have reviewed and discussed my treatment plan with the ICU team and other medical/networks software consultant staff, making frequent assessments and decisions regarding this patient's complex medical care. Critical Care time was exclusive of time spent performing separately billed procedures, treating other patients, and teaching. This time was in addition to and separate from critical care provided by other practitioners in my group on this day of service. Critical Care was necessary to treat or prevent imminent or life-threatening deterioration of the following conditions: I spent time reviewing and interpreting data from bedside monitors, laboratory results, and imaging, I spent time discussing the management of this critically ill patient with consultants and the medical staff and I spent time documenting in the medical record us Fito BARRIOS IN CLINIC/BEDSIDE ORDERABLES Final Result * POCT glucose (09/04/2024 9:48 PM INTERNET MARKETING MANAGER) Glucose, POC 123 70 - 199 mg/dL Blood 09/04/2024 9:48 PM INTERNET MARKETING MANAGER 09/04/2024 9:48 PM INTERNET MARKETING MANAGER Ze Boucher MD LAB POCT ORDERABLES - DEVICE F inal Result Performing Organization Address [facility] Co de Phone Number NICOLE [phone] [address] [facility] [place] [address] * POCT glucose (09/04/2024 8:41 PM INTERNET MARKETING MANAGER) Glucose, POC 131 70 - 199 mg/dL Blood 09/04/2024 8:41 PM INTERNET MARKETING MANAGER 09/04/2024 8:41 PM INTERNET MARKETING MANAGER Ze Boucher MD LAB POCT ORDERABLES - DEVICE F inal Result Performing Organization Address [facility] Co de Phone Number [facility] [address] [facility] [place] [address] * POCT glucose (09/04/2024 7:16 PM INTERNET MARKETING MANAGER) Glucose, POC 125 70 - 199 mg/dL Blood 09/04/2024 7:16 PM INTERNET MARKETING MANAGER 09/04/2024 7:16 PM INTERNET MARKETING MANAGER Ze Boucher MD LAB POCT ORDERABLES - DEVICE F inal Result Performing Organization Address [facility] Co de Phone Number [facility] [address] [facility] [place] [address] * (ABNORMAL) Blood gas, arterial (09/04/2024 6:16 PM INTERNET MARKETING MANAGER) pH, Art 7.34(L) 7.35 - 7.45 PCO2, Arterial 44 35 - 45 [facility] PO2, Arterial 133(H) 83 - 108 mmHg [facility] HCO3 Art (Calculated) 23 20 - 30 mmol/L [facility] BE, art -2 mmol/L [facility] Comment: Interpretive Data No Reference Range Established Current Interpretive Data was last revised on 2017 O2 Sat Art (Measured) 99(H) 90 - 95 % NICOLE RAMOS Blood 09/04/2024 6:16 PM INTERNET MARKETING MANAGER 09/04/2024 6:23 PM INTERNET MARKETING MANAGER Ze Boucher MD LAB BLOOD ORDERABLES Final Res ult Performing Organization Address City/[facility]/ZIP Co de Phone Number NICOLE RACHEL [address] Department [employer] [place], [place] [id number] * POCT glucose (09/04/2024 6:13 PM INTERNET MARKETING MANAGER) Glucose, POC 112 70 - 199 mg/dL Blood 09/04/2024 6:13 PM INTERNET MARKETING MANAGER 09/04/2024 6:13 PM INTERNET MARKETING MANAGER Ze Boucher MD LAB POCT ORDERABLES - DEVICE F inal Result Performing Organization Address [facility] Co de Phone Number NICOLE [address] [place] [address] * Calcium, ionized, whole blood (09/04/2024 5:25 PM INTERNET MARKETING MANAGER) Ca, ionized, bld 4.67 4.50 - 5.10 mg/dL Blood 09/04/2024 5:25 PM INTERNET MARKETING MANAGER 09/04/2024 5:40 PM INTERNET MARKETING MANAGER Ze Boucher MD LAB BLOOD ORDERABLES Final Res ult Performing Organization Address [facility] Co de Phone Number NICOLE [address] [facility] [employer] [place], [place] [id number] * eGFR (09/04/2024 5:25 PM INTERNET MARKETING MANAGER) eGFR 73 >=60 mL/min/1. 73 m2 Comment: Interpretive Data Reference Interval Normal >/= 90 mL/min/1.73m2 Mildly decreased* 60 - 89 mL/min/1.73m2 Mildly to moderately decreased 45 - 59 mL/min/1.73m2 Moderately to severely decreased 30 - 44 mL/min/1.73m2 Severely decreased 15 - 29 mL/min/1.73m2 Kidney Failure < 15 mL/min/1.73m2 *Relative to young adult level Estimated glomerular filtration rate is determined by the 2020 CKD-EPI equation recommended by the National Kidney Foundation (A Unifying Approach to GFR Estimation: Recommendations of the NKF-ASK Task Force on Reassessing the Inclusion of Race in Diagnosing Kidney Disease, JASN 2020). The CKD-EPI equation should not be used for patients with unstable renal function and has not been validated in children and those over 70. Current interpretive data was last reviewed 2021. Blood 09/04/2024 5:25 PM INTERNET MARKETING MANAGER 09/04/2024 5:43 PM INTERNET MARKETING MANAGER Ze Boucher MD LAB BLOOD ORDERABLES Final Res ult [facility] [address] Department [place] [address] * (ABNORMAL) CBC without differential (09/04/2024 5:25 PM INTERNET MARKETING MANAGER) WBC 14.8(H) 3.8 - 9.9 K/cumm Hgb 11.7(L) 11.9 - 15.5 g/dL [facility] Hct 35.3(L) 35.6 - 45.5 % [facility] Plt 107(L) 150 - 400 K/cumm [facility] MPV 10.8 9.1 - 12.3 fL [facility] RBC 4.16 3.90 - 5.20 M/cumm [facility] MCV 84.9 81.3 - 96.4 fL [facility] MCH 28.1 27.1 - 33.3 pg [facility] MCHC 33.1 32.3 - 35.7 g/dL [facility] RDW CV 12.4 11.1 - 14.9 % [facility] RDW SD 38.2 35.7 - 48.1 fL [facility] NRBC abs 0.00 0.00 - 0.01 K/cumm [facility] Blood 09/04/2024 5:25 PM INTERNET MARKETING MANAGER 09/04/2024 5:43 PM INTERNET MARKETING MANAGER Ze Boucher MD LAB BLOOD ORDERABLES Final Res ult Performing Organization Address [facility] de Phone Number FACUNDOJYOTI [address] [address] [facility] [place] [address] * (ABNORMAL) Phosphorus (09/04/2024 5:25 PM INTERNET MARKETING MANAGER) Phosphorus, pl 1.7(L) 2.3 - 4.5 mg/dL Blood 09/04/2024 5:25 PM INTERNET MARKETING MANAGER 09/04/2024 5:40 PM INTERNET MARKETING MANAGER Ze Boucher MD LAB BLOOD ORDERABLES Final Res ult Performing Organization Address [facility] de Phone Number FACUNDOJYOTI [address] [facility] [place] [address] * Magnesium (09/04/2024 5:25 PM INTERNET MARKETING MANAGER) Magnesium 2.3 1.4 - 2.5 mg/dL Blood 09/04/2024 5:25 PM INTERNET MARKETING MANAGER 09/04/2024 5:40 PM INTERNET MARKETING MANAGER Ze Boucher MD LAB BLOOD ORDERABLES Final Res ult Performing Organization Address [facility] de Phone Number NICOLE [address] [facility] [place] [address] * (ABNORMAL) Blood gas, arterial (09/04/2024 5:25 PM INTERNET MARKETING MANAGER) pH, Art 7.50(H) 7.35 - 7.45 PCO2, Arterial 27(L) 35 - 45 mmHg [facility] PO2, Arterial 198(H) 83 - 108 mmHg [facility] HCO3 Art (Calculated) 24 20 - 30 mmol/L [facility] BE, art -2 mmol/L [facility] Comment: Interpretive Data No Reference Range Established Current Interpretive Data was last revised on 2017 O2 Sat Art (Measured) 100(H) 90 - 95 % [facility] Blood 09/04/2024 5:25 PM INTERNET MARKETING MANAGER 09/04/2024 5:40 PM INTERNET MARKETING MANAGER Ze Boucher MD LAB BLOOD ORDERABLES Final Res ult Performing Organization Address City/[facility]/ZIP Co de Phone Number [facility] [address] [place] [address] * (ABNORMAL) Basic metabolic panel (09/04/2024 5:25 PM INTERNET MARKETING MANAGER) Sodium 141 135 - 145 mmol/L Potassium, pl 4.8 3.3 - 4.9 mmol/L [facility] Chloride 109 97 - 110 mmol/L [facility] CO2 21(L) 22 - 32 mmol/L [facility] Anion gap 11 2 - 15 mmol/L [facility] BUN 12 6 - 25 mg/dL [facility] Creatinine 0.93 0.60 - 1.10 mg/dL [facility] Glucose 118 70 - 199 mg/dL [facility] Comment: Interpretive Data Fasting glucose >/= 126 mg/dl is diagnostic for diabetes. Fasting is defined as no caloric intake for at least 8 hours. Fasting glucose between 100 mg/dl to 125 mg/dl is diagnostic of prediabetes. In a patient with classic symptoms of hyperglycemia or hyperglycemic crisis, a random glucose >/= 200 mg/dl is diagnostic for diabetes. In the absence of unequivocal hyperglycemia, results should be confirmed by repeat testing. The classification and Diagnosis of Diabetes Diabetes Care 202; 46: S19-S40. Current interpretive data was last revised 2022. Calcium 8.5 8.5 - 10.3 mg/dL [facility] Blood 09/04/2024 5:25 PM INTERNET MARKETING MANAGER 09/04/2024 5:40 PM INTERNET MARKETING MANAGER Ze Boucher MD LAB BLOOD ORDERABLES Final Res ult [facility] [address] [place] [address] * POCT glucose (09/04/2024 5:06 PM INTERNET MARKETING MANAGER) Glucose, POC 116 70 - 199 mg/dL Blood 09/04/2024 5:06 PM INTERNET MARKETING MANAGER 09/04/2024 5:06 PM INTERNET MARKETING MANAGER Ze Boucher MD LAB POCT ORDERABLES - DEVICE F inal Result Performing Organization Address [facility] Co de Phone Number [facility] [address] [place] [address] * POCT glucose (09/04/2024 3:55 PM INTERNET MARKETING MANAGER) Glucose, POC 101 70 - 199 mg/dL Blood 09/04/2024 3:55 PM INTERNET MARKETING MANAGER 09/04/2024 3:55 PM INTERNET MARKETING MANAGER Ze Boucher MD LAB POCT ORDERABLES - DEVICE F inal Result Performing Organization Address [facility] Co de Phone Number [facility] [address] [place] [address] * Blood culture Blood (09/04/2024 3:42 PM INTERNET MARKETING MANAGER) Report Final Report: No growth Comment:Testing performed by : [facility], [address] [place]., [address] Blood 09/04/2024 3:42 PM INTERNET MARKETING MANAGER 09/04/2024 6:05 PM INTERNET MARKETING MANAGER Narrative NICOLE - 09/09/2024 7:00 AM INTERNET MARKETING MANAGER From a different site than #1. Collection->Peripheral 1. Blood cultures are incubated for 4 days on a continuously monitored blood culture system. The first report of a negative culture is issued within 24 hours of receipt of the specimen in the laboratory. 2. Positive culture results are reported as soon as they are detected. 3. The most important factor for detection of microbes in the setting of bloodstream infection is the volume of blood submitted for culture. Failure to collect an optimal blood volume can result in false negative blood cultures. 4. For pediatric patients, the recommended blood volume to collect follows a weight based strategy. See the electronic test catalog for collection instructions. 5. For positive blood cultures, a rapid molecular test may be performed for organism identification using the brent ePlex blood culture identification panel for gram positive (BCID-GP) and gram negative (BCID-GN) organisms. This nucleic acid amplification test detects microbial DNA in positive blood culture broth. This assay has been cleared by the [place] Food and Drug Administration and its performance characteristics have been verified by the [facility] Microbiology Laboratory. For questions about this culture, contact the Microbiology Laboratory at [phone]. Interpretive data was last revised on 24. Jessica Martinez NP LAB MICROBIOLOGY - GENER AL ORDERABLES Final Result NICOLE RAMOS [address] Department [place] [address] * Blood culture Blood (09/04/2024 3:42 PM INTERNET MARKETING MANAGER) Report Final Report: No growth Comment:Testing performed by : [facility], [address] [place]., [address] Blood 09/04/2024 3:42 PM INTERNET MARKETING MANAGER 09/04/2024 6:05 PM INTERNET MARKETING MANAGER Lelo RIVERA CH 09/09/2024 7:00 AM INTERNET MARKETING MANAGER Collection->Peripheral 1. Blood cultures are incubated for 4 days on a continuously monitored blood culture system. The first report of a negative culture is issued within 24 hours of receipt of the specimen in the laboratory. 2. Positive culture results are reported as soon as they are detected. 3. The most important factor for detection of microbes in the setting of bloodstream infection is the volume of blood submitted for culture. Failure to collect an optimal blood volume can result in false negative blood cultures. 4. For pediatric patients, the recommended blood volume to collect follows a weight based strategy. See the electronic test catalog for collection instructions. 5. For positive blood cultures, a rapid molecular test may be performed for organism identification using the brent ePlex blood culture identification panel for gram positive (BCID-GP) and gram negative (BCID-GN) organisms. This nucleic acid amplification test detects microbial DNA in positive blood culture broth. This assay has been cleared by the [place] Food and Drug Administration and its performance characteristics have been verified by the [facility] Microbiology Laboratory. For questions about this culture, contact the Microbiology Laboratory at [phone]. Interpretive data was last revised on 24. Jessica Martinez NP LAB MICROBIOLOGY - GENER AL ORDERABLES Final Result NICOLE RAMOS [address] [address] Department [place] [address] * Calcium, ionized, whole blood (09/04/2024 3:21 PM INTERNET MARKETING MANAGER) Ca, ionized, bld 4.68 4.50 - 5.10 mg/dL Blood 09/04/2024 3:21 PM INTERNET MARKETING MANAGER 09/04/2024 3:29 PM INTERNET MARKETING MANAGER Ze Boucher MD LAB BLOOD ORDERABLES Final Res ult Performing Organization Address City/[facility] Co de Phone Number NICOLE RAMOS [phone] [address] Department of [employer] [place], [place] [phone] * (ABNORMAL) Blood gas, arterial (09/04/2024 3:21 PM INTERNET MARKETING MANAGER) pH, Art 7.48(H) 7.35 - 7.45 PCO2, Arterial 29(L) 35 - 45 mmHg CERNER CH PO2, Arterial 163(H) 83 - 108 mmHg CERNER CH HCO3 Art (Calculated) 24 20 - 30 mmol/L CERNER CH BE, art -2 mmol/L CERNER CH Comment: Interpretive Data No Reference Range Established Current Interpretive Data was last revised on 2017 O2 Sat Art (Measured) 99(H) 90 - 95 % CERNER CH Blood 09/04/2024 3:21 PM INTERNET MARKETING MANAGER 09/04/2024 3:29 PM INTERNET MARKETING MANAGER Jessica Martinez SCHOOL INSPECTOR LAB BLOOD ORDERABLES Fin al Result Performing Organization Address [facility] Co de Phone Number NICOLE [address] [place], [place] [phone] * POCT glucose (09/04/2024 2:48 PM INTERNET MARKETING MANAGER) Glucose, POC 91 70 - 199 mg/dL Blood 09/04/2024 2:48 PM INTERNET MARKETING MANAGER 09/04/2024 2:48 PM INTERNET MARKETING MANAGER Ze Boucher MD LAB POCT ORDERABLES - DEVICE F inal Result Performing Organization Address [facility] de Phone Number NICOLE [address] [address] [facility] [place] [address] * POCT glucose (09/04/2024 1:49 PM INTERNET MARKETING MANAGER) Glucose, POC 80 70 - 199 mg/dL Blood 09/04/2024 1:49 PM INTERNET MARKETING MANAGER 09/04/2024 1:49 PM INTERNET MARKETING MANAGER Ze Boucher MD LAB POCT ORDERABLES - DEVICE F inal Result Performing Organization Address [facility] Phone Number NICOLE [address] [place] [address] * Critical Care (09/04/2024 1:12 PM INTERNET MARKETING MANAGER) Narrative Lenin Huff MD - 09/04/2024 1:12 PM INTERNET MARKETING MANAGER Jessica Martinez NP 09/04/2024 1:13 PM Critical Care Performed by: Jessica Martinez NP Authorized by: Jessica Martinez NP CRITICAL CARE: Team: CHELSIE Shift: AM Level of Billing: Critical Care My time spent with this patient was 110 minutes: Critical Provider Statement: I have seen and examined the patient on this day of service. I have reviewed and confirmed the history, physical exam, laboratory and radiologic data as documented in the signed ICU note. I have reviewed and discussed my treatment plan with the ICU team and other medical/networks software consultant staff, making frequent assessments and decisions regarding this patient's complex medical care. Critical Care time was exclusive of time spent performing separately billed procedures, treating other patients, and teaching. This time was in addition to and separate from critical care provided by other practitioners in my group on this day of service. Critical Care was necessary to treat or prevent imminent or life-threatening deterioration of the following conditions: I spent time reviewing and interpreting data from bedside monitors, laboratory results, and imaging, I spent time discussing the management of this critically ill patient with consultants and the medical staff and I spent time documenting in the medical record us Jessica Martinez SCHOOL INSPECTOR IN CLINIC/BEDSIDE ORDERA BLES Final Result * XR Chest 1 View - Portable (09/04/2024 12:57 PM INTERNET MARKETING MANAGER) Anatomical Region Laterality Modality Body, Chest N/A Computed Radiogr aphy 09/04/2024 1:04 PM INTERNET MARKETING MANAGER Impressions 09/04/2024 1:04 PM INTERNET MARKETING MANAGER Postsurgical changes. Superior mediastinal widening. Fluid and atelectasis left base. No definite failure or pneumothorax. Nasogastric tube should BE advanced further into the stomach. Electronically signed by: Dick Renteria M.D. Narrative 09/04/2024 1:04 PM INTERNET MARKETING MANAGER EXAMINATION: XR CHEST 1 VIEW DATE: 09/04/2024 12:45 PM HISTORY: Cardiac surgery follow-up FINDINGS:Compared with the preoperative study of 08/24/2004, postsurgical changes now seen within the heart and mediastinum. Superior mediastinal widening and prominence of the left perihilar region. Mild cardiomegaly seen without evidence of failure. Left pleural fluid. Atelectasis left base. No pneumothorax. Endotracheal tube 2.8 cm above the zana. Nasogastric tube tip in the gastric fundus with sidehole close to the gastroesophageal junction and should BE advanced further. [place] catheter entering the right IJ approach directed to the main pulmonary artery. Procedure Note Dick Renteria MD - 09/04/2024 EXAMINATION: XR CHEST 1 VIEW DATE: 09/04/2024 12:45 PM HISTORY: Cardiac surgery follow-up FINDINGS:Compared with the preoperative study of 08/24/2004, postsurgical changes now seen within the heart and mediastinum. Superior mediastinal widening and prominence of the left perihilar region. Mild cardiomegaly seen without evidence of failure. Left pleural fluid. Atelectasis left base. No pneumothorax. Endotracheal tube 2.8 cm above the zana. Nasogastric tube tip in the gastric fundus with sidehole close to the gastroesophageal junction and should BE advanced further. [place] catheter entering the right IJ approach directed to the main pulmonary artery. IMPRESSION: Postsurgical changes. Superior mediastinal widening. Fluid and atelectasis left base. No definite failure or pneumothorax. Nasogastric tube should BE advanced further into the stomach. Electronically signed by: Dick Renteria M.D. Ze Boucher MD IMG XR PROCEDURES Final Result * Surgical pathology (09/04/2024 12:35 PM INTERNET MARKETING MANAGER) Tissue specimen (specimen) (Heart Valve) 09/04/2024 9:46 AM INTERNET MARKETING MANAGER Narrative PATHOLOGY - 09/05/2024 10:09 AM INTERNET MARKETING MANAGER EPIC results best viewed via link to PDF [facility] Department of Pathology [address] [place] [id number] Note to Patients: This report may contain a detailed description of human tissue sent by a health care provider to the laboratory for pathologic evaluation. The content of this report is essential for diagnosis and may provide important critical findings. This information may be unfamiliar to patients to review without a medical professional present. It is advised that the patient review this report in the presence of a health care provider who can answer questions and explain the details. Final Report Patient Name: ZURI ACEVES Address: [address] [place] [address] Gender: F : 1970 (Age: 54) Service: Cardiothoracic Location: [facility] #: [id number] Patient Type: [facility] Taken: 09/04/2024 Received: 09/04/2024 Accessioned: 09/04/2024 Reported: 09/05/2024 Physician(s):Ze Boucher M.D. Perry Boykin M.D. 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 Report Electronically Reviewed and Signed Out By Jose Kelly M.D. 09/05/2024 10:09:24 Specimen(s) Received: A: Aortic valve leaflets Microscopic Description: Microscopic examination substantiates the above diagnosis. Clinical History: Aortic valve stenosis, etiology of cardia valve disease unspecified Procedure: replacement aortic valve Gross Description: Received in a single formalin filled container labeled with ZURI SCHLEPER and aortic valve leaflets .It is a bicuspid heart valve received in two pieces with a tricuspid architecture. Both are roughly equivalent in size. The valves measure 2.9 and 3.2 cm in greatest dimension. Both are thickened nodular and calcified with shaggy red-flores vegetation. Decalcified and represented in one cassette. Wanda Patino R.N., P.A./Jocelyne Guzman M.D. REPORT IMAGES AND SCANNED DOCUMENTS, IF INCLUDED, ONLY VIEWABLE IN PDF VERSION OF REPORT The performance characteristics of some immunohistochemical stains, fluorescence in-situ hybridization tests and immunophenotyping by flow cytometry cited in this report (if any) were determined by the Surgical Pathology Department at [facility] as part of an ongoing research associate quality control qc program and in compliance with federally mandated regulations drawn from the Clinical Laboratory Improvement Act of 1988 (CLIA '88). Some of these tests rely on the use of analyte specific reagents and are subject to specific labeling requirements by the US Food and Drug Administration. Such diagnostic tests may only be performed in a facility that is certified by the Department of Health and Human Services as a high complexity laboratory under CLIA '88. The FDA has determined that such clearance or approval is not necessary. This test is used for clinical purposes. It should not be regarded as investigational or for research. Nevertheless, federal rules concerning the medical use of analyte specific reagents require that the following disclaimer be attached to the report: This test was developed and its performance characteristics determined by the Surgical Pathology Department [facility]. It has not been cleared or approved by the U. S. Food and Drug Administration. Note for decalcified specimens: This assay has not been validated on decalcified tissues. Results should be interpreted with caution given the possibility of false negativity on decalcified specimens Ze Boucher MD LAB PATHOLOGY ORDERABLES Final Result Performing Organization Address [facility] Co de Phone Number PATHOLOGY RACHEL [address] [place] [address] * eGFR (09/04/2024 12:27 PM INTERNET MARKETING MANAGER) eGFR 70 >=60 mL/min/1. 73 m2 Comment: Interpretive Data Reference Interval Normal >/= 90 mL/min/1.73m2 Mildly decreased* 60 - 89 mL/min/1.73m2 Mildly to moderately decreased 45 - 59 mL/min/1.73m2 Moderately to severely decreased 30 - 44 mL/min/1.73m2 Severely decreased 15 - 29 mL/min/1.73m2 Kidney Failure < 15 mL/min/1.73m2 *Relative to young adult level Estimated glomerular filtration rate is determined by the 2020 CKD-EPI equation recommended by the National Kidney Foundation (A Unifying Approach to GFR Estimation: Recommendations of the NKF-ASK Task Force on Reassessing the Inclusion of Race in Diagnosing Kidney Disease, JASN 2020). The CKD-EPI equation should not be used for patients with unstable renal function and has not been validated in children and those over 70. Current interpretive data was last reviewed 2021. Blood 09/04/2024 12:2 7 PM INTERNET MARKETING MANAGER 09/04/2024 12:34 PM INTERNET MARKETING MANAGER Ze Boucher MD LAB BLOOD ORDERABLES Final Res ult Performing Organization Address City/[facility] Co de Phone Number CERNER RACHEL [address] [address] Department [place] [address] * (ABNORMAL) aPTT (09/04/2024 12:27 PM INTERNET MARKETING MANAGER) aPTT 26(L) 28 - 38 sec Comment: Interpretive Data Heparin therapeutic range: 66.0 - 100.0 seconds. Range based on correlation with therapeutic heparin activity range of 0.3 - 0.7 Units/mL. Current interpretive data was last revised on 2023. Blood 09/04/2024 12:2 7 PM INTERNET MARKETING MANAGER 09/04/2024 12:34 PM INTERNET MARKETING MANAGER Ze Boucher MD LAB BLOOD ORDERABLES Final Res ult Performing Organization Address [facility] de Phone Number NICOLE RAMOS [address] Department [place] [address] * Protime-INR (09/04/2024 12:27 PM INTERNET MARKETING MANAGER) PT 12.1 9.7 - 13.0 sec INR 1.12 0.90 - 1.20 [facility] Comment: Interpretive data Oral anticoagulant therapeutic ranges: Venous thromboembolism prophylaxis or treatment: 2.0-3.0 CARDIOLOGY Standard range: 2.0-3.0 High-intensity range: 2.5-3.5 Refer to indication-specific guidelines for appropriate target ranges for prosthetic heart valve replacement. Current interpretive data was last revised on 2019. Blood 09/04/2024 12:2 7 PM INTERNET MARKETING MANAGER 09/04/2024 12:34 PM INTERNET MARKETING MANAGER Ze Boucher MD LAB BLOOD ORDERABLES Final Res ult Performing Organization Address [facility] Co de Phone Number NICOLE RAMOS [address] [address] Department [place] [address] * (ABNORMAL) CBC without differential (09/04/2024 12:27 PM INTERNET MARKETING MANAGER) WBC 32.6(H) 3.8 - 9.9 K/cumm Hgb 11.9 11.9 - 15.5 g/dL [facility] Hct 36.5 35.6 - 45.5 % [facility] Plt 130(L) 150 - 400 K/cumm [facility] MPV 10.3 9.1 - 12.3 fL [facility] RBC 4.18 3.90 - 5.20 M/cumm [facility] MCV 87.3 81.3 - 96.4 fL [facility] MCH 28.5 27.1 - 33.3 pg [facility] MCHC 32.6 32.3 - 35.7 g/dL [facility] RDW CV 12.3 11.1 - 14.9 % [facility] RDW SD 39.7 35.7 - 48.1 fL [facility] NRBC abs 0.00 0.00 - 0.01 K/cumm [facility] Blood 09/04/2024 12:2 7 PM INTERNET MARKETING MANAGER 09/04/2024 12:34 PM INTERNET MARKETING MANAGER Ze Boucher MD LAB BLOOD ORDERABLES Final Res ult Performing Organization Address City/[facility]/ZIP Co de Phone Number NICOLE [address] [facility] [place] [address] * Phosphorus (09/04/2024 12:27 PM INTERNET MARKETING MANAGER) Phosphorus, pl 2.7 2.3 - 4.5 mg/dL Blood 09/04/2024 12:2 7 PM INTERNET MARKETING MANAGER 09/04/2024 3:18 PM INTERNET MARKETING MANAGER Ze Boucher MD LAB BLOOD ORDERABLES Final Res ult Performing Organization Address [facility] Co de Phone Number FACUNDOJYOTI [address] [facility] [place] [address] * Phosphorus (09/04/2024 12:27 PM INTERNET MARKETING MANAGER) Phosphorus, pl 2.7 2.3 - 4.5 mg/dL Blood 09/04/2024 12:2 7 PM INTERNET MARKETING MANAGER 09/04/2024 12:34 PM INTERNET MARKETING MANAGER Jessica Martinez NP LAB BLOOD ORDERABLES Fin al Result Performing Organization Address [facility] Co de Phone Number FACUNDOJYOTI [address] [facility] [employer] [place], [place] [phone] * (ABNORMAL) Magnesium (09/04/2024 12:27 PM INTERNET MARKETING MANAGER) Magnesium 2.8(H) 1.4 - 2.5 mg/dL Blood 09/04/2024 12:2 7 PM INTERNET MARKETING MANAGER 09/04/2024 3:18 PM INTERNET MARKETING MANAGER Ze Boucher MD LAB BLOOD ORDERABLES Final Res ult Performing Organization Address [facility] [place] [address] [address] Department [place] [address] * (ABNORMAL) Blood gas, arterial (09/04/2024 12:27 PM INTERNET MARKETING MANAGER) pH, Art 7.28(L) 7.35 - 7.45 PCO2, Arterial 46(H) 35 - 45 mmHg CERNER CH PO2, Arterial 114(H) 83 - 108 mmHg CERNER CH HCO3 Art (Calculated) 20 20 - 30 mmol/L CERNER CH BE, art -4 mmol/L CERNER CH Comment: Interpretive Data No Reference Range Established Current Interpretive Data was last revised on 2017 O2 Sat Art (Measured) 98(H) 90 - 95 % CERNER CH Blood 09/04/2024 12:2 7 PM INTERNET MARKETING MANAGER 09/04/2024 12:35 PM INTERNET MARKETING MANAGER Ze Boucher MD LAB BLOOD ORDERABLES Final Res ult Performing Organization Address [facility] Co de Phone [place] [address] [address] Department [place] [address] * (ABNORMAL) Basic metabolic panel (09/04/2024 12:27 PM INTERNET MARKETING MANAGER) Sodium 142 135 - 145 mmol/L Potassium, pl 3.6 3.3 - 4.9 mmol/L CERNER CH Chloride 110 97 - 110 mmol/L CERNER CH CO2 20(L) 22 - 32 mmol/L CERNER CH Anion gap 12 2 - 15 mmol/L CERNER CH BUN 11 6 - 25 mg/dL CERNER CH Creatinine 0.96 0.60 - 1.10 mg/dL CERNER CH Glucose 140 70 - 199 mg/dL CERNER CH Comment: Interpretive Data Fasting glucose >/= 126 mg/dl is diagnostic for diabetes. Fasting is defined as no caloric intake for at least 8 hours. Fasting glucose between 100 mg/dl to 125 mg/dl is diagnostic of prediabetes. In a patient with classic symptoms of hyperglycemia or hyperglycemic crisis, a random glucose >/= 200 mg/dl is diagnostic for diabetes. In the absence of unequivocal hyperglycemia, results should be confirmed by repeat testing. The classification and Diagnosis of Diabetes Diabetes Care 2021; 46: S19-S40. Current interpretive data was last revised 2022. Calcium 8.1(L) 8.5 - 10.3 mg/dL CERNER CH Blood 09/04/2024 12:2 7 PM INTERNET MARKETING MANAGER 09/04/2024 12:34 PM INTERNET MARKETING MANAGER Ze Boucher MD LAB BLOOD ORDERABLES Final Res ult Performing Organization Address [facility]/ZIP Co de Phone Number NICOLE RAMOS [address] [address] Department [place] [address] * POCT glucose (09/04/2024 11:55 AM INTERNET MARKETING MANAGER) Glucose, POC 138 70 - 199 mg/dL Blood 09/04/2024 11:5 5 AM INTERNET MARKETING MANAGER 09/04/2024 11:55 AM INTERNET MARKETING MANAGER Ze Boucher MD LAB POCT ORDERABLES - DEVICE F inal Result Performing Organization Address [facility] Co de Phone Number NICOLE [address] [address] Department [place] [address] * (ABNORMAL) POC Blood Gas and Chemistries, Arterial - (09/04/2024 11:04 AM INTERNET MARKETING MANAGER) pH, Art POC 7.34(L) 7.35 - 7.45 pCO2, Art POC 41 35 - 45 mmHg CERNER CH pO2, Art POC 118(H) 83 - 108 mmHg CERNER CH Na, POC 138 135 - 145 mmol/L CERNER CH K POC 3.3 3.3 - 4.9 mmol/L CERNER CH Comment: Interpretive Data This method is not able to assess for hemolysis, which may falsely increase potassium concentrations. If further testing is needed to evaluate this result, consider in-laboratory plasma potassium. Current Interpretive Data was last revised on 2022. Ionized Ca, POC 4.90 4.50 - 5.10 mg/dL CERNER CH Glucose, POC 214(H) 70 - 199 mg/dL CERNER CH Lactate, POC 1.9 0.7 - 2.0 mmol/L CERNER CH O2Hb, Art POC 96.2(H) 90.0 - 95.0 % CERNER CH SO2 (jessica) arterial 99(H) 90 - 95 % CERNER CH Total CO2, Art POC 23 21 - 30 mmol/L CERNER CH BE, art, POC -4 mmol/L CERNER CH Hct, POC 32.0(L) 35.6 - 45.5 % CERNER CH Total Hb, POC 10.6(L) 11.9 - 15.5 g/dL CERNER CH Blood 09/04/2024 11:0 4 AM INTERNET MARKETING MANAGER 09/04/2024 11:04 AM INTERNET MARKETING MANAGER Ze Boucher MD LAB POCT ORDERABLES - DEVICE F inal Result Performing Organization Address [facility]/ZIP Co de Phone Number NICOLE RAMOS [phone] [address] [employer] [place], [place] [id number] * POC Activated Clotting Time, High Range (09/04/2024 11:00 AM INTERNET MARKETING MANAGER) ACT 107 87 - 138 sec Blood 09/04/2024 11:0 0 AM INTERNET MARKETING MANAGER 09/04/2024 11:00 AM INTERNET MARKETING MANAGER Ze Boucher MD LAB BLOOD ORDERABLES Final Res ult Performing Organization Address City/[facility]/ZIP Co de Phone Number NICOLE RACHEL [address] [address] Department [place] [address] * (ABNORMAL) POC Blood Gas and Chemistries, Arterial - (09/04/2024 10:20 AM INTERNET MARKETING MANAGER) pH, Art POC 7.32(L) 7.35 - 7.45 pCO2, Art POC 41 35 - 45 mmHg CERNER CH pO2, Art POC 276(H) 83 - 108 mmHg CERNER CH Na, POC 133(L) 135 - 145 mmol/L CERNER CH K POC 4.5 3.3 - 4.9 mmol/L CERNER CH Comment: Interpretive Data This method is not able to assess for hemolysis, which may falsely increase potassium concentrations. If further testing is needed to evaluate this result, consider in-laboratory plasma potassium. Current Interpretive Data was last revised on 2022. Ionized Ca, POC 4.24(L) 4.50 - 5.10 mg/dL CERNER CH Glucose, POC 216(H) 70 - 199 mg/dL CERNER CH Lactate, POC 2.5(H) 0.7 - 2.0 mmol/L CERNER CH O2Hb, Art POC 94.3 90.0 - 95.0 % CERNER CH SO2 (jessica) arterial 100(H) 90 - 95 % CERNER CH Total CO2, Art POC 22 21 - 30 mmol/L CERNER CH BE, art, POC -5 mmol/L CERNER CH Hct, POC 28.0(L) 35.6 - 45.5 % CERNER CH Total Hb, POC 9.3(L) 11.9 - 15.5 g/dL CERNER CH Blood 09/04/2024 10:2 0 AM INTERNET MARKETING MANAGER 09/04/2024 10:20 AM INTERNET MARKETING MANAGER Ze Boucher MD LAB POCT ORDERABLES - DEVICE F inal Result Performing Organization Address [facility]/ZIP Co de Phone Number NICOLE [address] Kristen Department [place] [address] * (ABNORMAL) POC Activated Clotting Time, High Range (09/04/2024 10:19 AM INTERNET MARKETING MANAGER) ACT 442(H) 87 - 138 sec Blood 09/04/2024 10:1 9 AM INTERNET MARKETING MANAGER 09/04/2024 10:19 AM INTERNET MARKETING MANAGER Ze Boucher MD LAB BLOOD ORDERABLES Final Res ult NICOLE RAMOS [address] [address] Department [place] [address] * (ABNORMAL) POC Blood Gas and Chemistries, Arterial - (09/04/2024 9:57 AM INTERNET MARKETING MANAGER) Pathologist [facility] [place] pH, Art POC 7.33(L) 7.35 - 7.45 pCO2, Art POC 40 35 - 45 mmHg [facility] pO2, Art POC 314(H) 83 - 108 mmHg [facility] Na, POC 134(L) 135 - 145 mmol/L [facility] K POC 4.0 3.3 - 4.9 mmol/L [facility] Comment: Interpretive Data This method is not able to assess for hemolysis, which may falsely increase potassium concentrations. If further testing is needed to evaluate this result, consider in-laboratory plasma potassium. Current Interpretive Data was last revised on 2022. Ionized Ca, POC 4.30(L) 4.50 - 5.10 mg/dL [facility] Glucose, POC 192 70 - 199 mg/dL [facility] Lactate, POC 1.2 0.7 - 2.0 mmol/L [facility] O2Hb, Art POC 95.7(H) 90.0 - 95.0 % [facility] SO2 (jessica) arterial 99(H) 90 - 95 % [facility] Total CO2, Art POC 22 21 - 30 mmol/L [facility] BE, art, POC -4 mmol/L [facility] Hct, POC 29.0(L) 35.6 - 45.5 % [facility] Total Hb, POC 9.5(L) 11.9 - 15.5 g/dL [facility] CH Blood 09/04/2024 9:57 AM INTERNET MARKETING MANAGER 09/04/2024 9:57 AM INTERNET MARKETING MANAGER Ze Boucher MD LAB POCT ORDERABLES - DEVICE F inal Result NICOLE RAMOS [address] Department [place] [address] * (ABNORMAL) Platelet count (09/04/2024 9:56 AM INTERNET MARKETING MANAGER) Pathologist [facility] [place] Plt 123(L) 150 - 400 K/cumm Blood 09/04/2024 9:56 AM INTERNET MARKETING MANAGER 09/04/2024 10:10 AM INTERNET MARKETING MANAGER Ze Boucher MD LAB BLOOD ORDERABLES Final Res ult [facility] [address] [address] Department [place] [address] * (ABNORMAL) POC Blood Gas and Chemistries, Arterial - (09/04/2024 9:55 AM INTERNET MARKETING MANAGER) pH, Art POC 7.35 7.35 - 7.45 pCO2, Art POC 40 35 - 45 mmHg [facility] CH pO2, Art POC 358(H) 83 - 108 mmHg [facility] Na, POC Incalculable 135 - 145 mmol/L [facility] K POC 4.0 3.3 - 4.9 mmol/L [facility] Comment: Interpretive Data This method is not able to assess for hemolysis, which may falsely increase potassium concentrations. If further testing is needed to evaluate this result, consider in-laboratory plasma potassium. Current Interpretive Data was last revised on 2022. Ionized Ca, POC 4.15(L) 4.50 - 5.10 mg/dL [facility] CH Glucose, POC 192 70 - 199 mg/dL [facility] Lactate, POC 1.1 0.7 - 2.0 mmol/L [facility] O2Hb, Art POC 95.5(H) 90.0 - 95.0 % [facility] SO2 (jessica) arterial 99(H) 90 - 95 % [facility] Total CO2, Art POC 23 21 - 30 mmol/L [facility] BE, art, POC -3 mmol/L [facility] Hct, POC 29.0(L) 35.6 - 45.5 % [facility] Total Hb, POC 9.6(L) 11.9 - 15.5 g/dL [facility] Blood 09/04/2024 9:55 AM INTERNET MARKETING MANAGER 09/04/2024 9:55 AM INTERNET MARKETING MANAGER Ze Boucher MD LAB POCT ORDERABLES - DEVICE F inal Result NICOLE RAMOS [address] [address] Department [place] [address] * (ABNORMAL) POC Activated Clotting Time, High Range (09/04/2024 9:54 AM INTERNET MARKETING MANAGER) ACT 526(H) 87 - 138 sec Blood 09/04/2024 9:54 AM INTERNET MARKETING MANAGER 09/04/2024 9:54 AM INTERNET MARKETING MANAGER us Ze Boucher MD LAB BLOOD ORDERABLES Final Res ult Performing Organization Address [facility] Co de Phone Number NICOLE RAMOS [address] [address] Department [place] [address] * (ABNORMAL) POC Blood Gas and Chemistries, Arterial - (09/04/2024 9:19 AM INTERNET MARKETING MANAGER) pH, Art POC 7.32(L) 7.35 - 7.45 pCO2, Art POC 43 35 - 45 mmHg [facility] CH pO2, Art POC 280(H) 83 - 108 mmHg [facility] Na, POC 134(L) 135 - 145 mmol/L [facility] K POC 3.4 3.3 - 4.9 mmol/L [facility] Comment: Interpretive Data This method is not able to assess for hemolysis, which may falsely increase potassium concentrations. If further testing is needed to evaluate this result, consider in-laboratory plasma potassium. Current Interpretive Data was last revised on 2022. Ionized Ca, POC 4.37(L) 4.50 - 5.10 mg/dL [facility] Glucose, POC 142 70 - 199 mg/dL [facility] Lactate, POC 0.8 0.7 - 2.0 mmol/L [facility] O2Hb, Art POC 96.5(H) 90.0 - 95.0 % [facility] SO2 (jessica) arterial 99(H) 90 - 95 % [facility] Total CO2, Art POC 24 21 - 30 mmol/L [facility] BE, art, POC -4 mmol/L [facility] Hct, POC 29.0(L) 35.6 - 45.5 % [facility] Total Hb, POC 9.6(L) 11.9 - 15.5 g/dL [facility] Blood 09/04/2024 9:19 AM INTERNET MARKETING MANAGER 09/04/2024 9:19 AM INTERNET MARKETING MANAGER Ze Boucher MD LAB POCT ORDERABLES - DEVICE F inal Result Performing Organization Address [facility] Co de Phone Number NICOLE RAMOS [address] [address] [place] [address] * (ABNORMAL) POC Activated Clotting Time, High Range (09/04/2024 9:18 AM INTERNET MARKETING MANAGER) ACT 526(H) 87 - 138 sec Blood 09/04/2024 9:18 AM INTERNET MARKETING MANAGER 09/04/2024 9:18 AM INTERNET MARKETING MANAGER Ze Boucher MD LAB BLOOD ORDERABLES Final Res ult Performing Organization Address [facility] de Phone Number NICOLE [address] [address] [place] [address] * BW AN SHEATH INTRODUCER PERFORMABLE, PULMONARY ARTERY CATH (09/04/2024 9:15 AM INTERNET MARKETING MANAGER) Narrative Enoc Guerrero AA - 09/04/2024 9:15 AM INTERNET MARKETING MANAGER Enoc Guerrero AA 09/04/2024 9:15 AM Central Venous Line Patient location: OR Indication: central venous access and CVP monitoring Staff: Supervising provider: Augie Gannon MD Placed by: AA: Enoc Guerrero AA Procedure prep: Patient position: Trendelenburg. PPE: provider hat/mask, sterile gloves, sterile gown, provider hand hygiene and full body drape. Prep solution: chlorhexadine/alcohol was applied to area. Ultrasound Evaluation: Ultrasound was prepped into field. Ultrasound image(s) saved to archive. Central line: Laterality: right Site: internal jugular Catheter type: multi-lumen access catheter (MAC) Catheter size: 9 Fr. Technique: anatomy identified with ultrasound, vein located with finder needle, Seldinger technique, wire threaded easily and wire removed intact Venous verification: pressure transduced Post insertion: all ports aspirated, all ports flushed easily, line sutured in place and occlusive dressing applied Chlorhexidine patch applied: yes Number of attempts: 1 PA catheter placement: PA catheter type: oximetric PA catheter size: 8 Fr PA catheter laterality: right PA catheter site: internal jugular Placement guided by: pressure tracing changes and verified by SCOTTY PA catheter depth 48 cmNo Assessment: Events: patient tolerated procedure well with no complications us Augie Gannon MD ANESTHESIA ORDERABLES Final Resu lt * TX AN ELECTIVE ENDOTRACHEAL AIRWAY (09/04/2024 9:14 AM INTERNET MARKETING MANAGER) Enoc King AA - 09/04/2024 9:14 AM INTERNET MARKETING MANAGER Enoc Guerrero AA 09/04/2024 9:15 AM Airway Patient location: OR Urgency: elective Indications for airway management: anesthesia Difficult airway: no Staff: Supervising provider: Augie Gannon MD Placed by: AA: Enoc Guerrero AA Emergent airway documentation: Risks and benefits discussed: yes Consent obtained: yes Consent given by: patient Airway prep: Preoxygenated: yes Patient position: sniffing Mask difficulty assessment: 2 - vent by mask + OA or adjuvant Spontaneous ventilation during airway: absent Sedation level during airway: GA Final airway details: Final airway type: endotracheal airway Tube type: ETT ETT size: 7.5 mm Cuffed: yes Technique used for successful ETT placement: video laryngoscopy Devices/Methods used in placement: cricoid pressure and stylet Insertion site: oral Blade type: Leisa Video blade type: Jameson Blade size: 3 Cormack-Lehane (video): grade I - full view of glottis Cuff inflated with: air ETT to lips: 22 cm Placement verified by: auscultation and CO2 detection Airway secured with: silk tape Number of attempts: 1 Additional comments: Rebeca MCADAMS performed intubation under direct supervision us Augie Gannon MD ANESTHESIA ORDERABLES Final Resu lt * Arterial Line (09/04/2024 9:13 AM INTERNET MARKETING MANAGER) Enoc King AA - 09/04/2024 9:13 AM INTERNET MARKETING MANAGER Enoc Guerrero AA 09/04/2024 9:14 AM Arterial Line Patient location: pre-op holding Indication: continuous blood pressure monitoring and blood sampling needed Staff: Supervising provider: Augie Gannon MD Placed by: AA: Enoc Guerrero AA Procedure prep: Prep solution: chlorhexadine/alcohol Prep: provider hat/mask and sterile gloves Skin infiltrated with lidocaine 1%: yes Arterial line: Catheter size: 20 gauge Catheter length: 1 and 3/4 inch Catheter type: wire-guided catheter Seldinger technique: yes Laterality: right Site: radial artery Line secured: Tegaderm and tape Results: good waveform and good blood return Number of attempts: 1 Assessment: Events: patient tolerated procedure well with no complications Additional comments: Rebeca HUANGS placed A line under direct supervision us Augie Gannon MD ANESTHESIA ORDERABLES Final Resu lt * (ABNORMAL) POC Activated Clotting Time, High Range (09/04/2024 8:53 AM INTERNET MARKETING MANAGER) ACT 448(H) 87 - 138 sec Blood 09/04/2024 8:53 AM INTERNET MARKETING MANAGER 09/04/2024 8:53 AM INTERNET MARKETING MANAGER us Ze Boucher MD LAB BLOOD ORDERABLES Final Res [place] [id number] [facility] Department [place] [address] * SCOTTY (09/04/2024 8:28 AM INTERNET MARKETING MANAGER) Anatomical Region Laterality Modality Other Narrative 09/04/2024 8:28 AM INTERNET MARKETING MANAGER Augie Gannon MD 09/04/2024 8:30 AM SCOTTY Date/time: 09/04/2024 8:28 AM Staff: Supervising anesthesiologist: Augie Gannon MD Performed by: Anesthesiologist: Augie Gannon MD Preprocedure checklist: patient identified, procedure contraindications assessed and SCOTTY probe inserted into esophagus using lubricating jelly General procedure Information: Reason for procedure/indications: assessment of surgical repair and hemodynamic monitoring Procedure performed at surgeon's request: yes Results discussed with surgeon: yes Images submitted to archive: no Patient location: OR Intubated: yes Bite blocked placed: yes Probe Insertion: easy Complications: no Probe type: adult Modalities: 2D imaging, continuous wave Doppler, pulsed wave Doppler and color Doppler Echocardiographic and doppler measurements: Ventricles: Left ventricle: Cavity size: normal Hypertrophy: No Thrombus: No Global function: moderately decreased LVEF%: 30-40 Right ventricle: Cavity size: normal Hypertrophy: no Thrombus: No Global function: normal RVEF%: normal Interventricular septum: normal Regional function: 1- Basal anteroseptal: hypokinetic 2- Basal anterior: hypokinetic 3- Basal anterolateral: hypokinetic 4- Basal inferolateral: hypokinetic 5- Basal inferior: hypokinetic 6- Basal inferoseptal: hypokinetic 7- Mid anteroseptal: hypokinetic 8- Mid anterior: hypokinetic 9- Mid anterolateral: hypokinetic 10- Mid inferolateral: hypokinetic 11- Mid inferior: hypokinetic 12- Mid inferoseptal: hypokinetic 13- Apical anterior: hypokinetic 14- Apical lateral: hypokinetic 15- Apical inferior: hypokinetic 16- Apical septal: hypokinetic 17- [place]: hypokinetic Valves: Aortic Valve: Annulus: normal (22 mm) Leaflet morphology: bicuspid Leaflet motion: prolapse (Prolapsed Rt Cusp) Stenosis: none Regurgitation: severe (Eccentric) Mitral valve: Annulus: normal Leaflet morphology anterior: normal Leaflet morphology posterior: normal Leaflet motion anterior: normal Stenosis: none Regurgitation: trace Tricuspid valve: Annulus: normal Leaflet morphology: normal Leaflet motion: normal Stenosis: none Regurgitation: mild Aorta: Ascending aorta: Size: normal Dissection: no Plaque mobile: no Descending aorta: Size: normal Dissection: no Plaque mobile: no Atria: Right atrium: Size: normal Left atrium: Size: normal (normal) Left atrial appendage: normal Interatrial septum: normal Diastolic function and other findings: Diastolic function: grade I dysfunction Pericardium: normal Left pleural effusion: none Right pleural effusion: normal Pulmonary venous flow: normal Postprocedure (follow-up) SCOTTY exam: LV: mildly decreased systolic function RV: unchanged Interventricular septum: unchanged Aortic valve: bioprosthetic Mitral valve: unchanged Pulmonic valve: unchanged Tricuspid valve: unchanged Atria: unchanged Aorta: unchanged Pericardium: unchanged Left pleural: unchanged Right pleural: unchanged Attestation Statement: By signing this report the attending anesthesiologist certifies that he or she has personally reviewed and interpreted the echocardiogram and has reviewed and or edited and agrees with the written comments contained within the report. Augie Gannon MD ANESTHESIA ORDERABLES Final Resu lt * (ABNORMAL) POC Blood Gas and Chemistries, Arterial - (09/04/2024 8:21 AM INTERNET MARKETING MANAGER) pH, Art POC 7.43 7.35 - 7.45 pCO2, Art POC 39 35 - 45 mmHg [facility] CH pO2, Art POC 364(H) 83 - 108 mmHg [facility] Na, POC 134(L) 135 - 145 mmol/L [facility] K POC 3.7 3.3 - 4.9 mmol/L [facility] Comment: Interpretive Data This method is not able to assess for hemolysis, which may falsely increase potassium concentrations. If further testing is needed to evaluate this result, consider in-laboratory plasma potassium. Current Interpretive Data was last revised on 2022. Ionized Ca, POC 4.73 4.50 - 5.10 mg/dL CERNER CH Glucose, POC 90 70 - 199 mg/dL [facility] CH Lactate, POC 0.5(L) 0.7 - 2.0 mmol/L [facility] CH O2Hb, Art POC 95.2(H) 90.0 - 95.0 % CERNER CH SO2 (jessica) arterial 100(H) 90 - 95 % CERNER CH Total CO2, Art POC 27 21 - 30 mmol/L [facility] BE, art, POC 2 mmol/L [facility] Hct, POC 41.0 35.6 - 45.5 % CERNER CH Total Hb, POC 13.6 11.9 - 15.5 g/dL [facility] CH Blood 09/04/2024 8:21 AM INTERNET MARKETING MANAGER 09/04/2024 8:21 AM INTERNET MARKETING MANAGER Ze Boucher MD LAB POCT ORDERABLES - DEVICE F inal Result [facility] [address] [address] Department [place] [address] * POC Activated Clotting Time, High Range (09/04/2024 8:18 AM INTERNET MARKETING MANAGER) ACT 109 87 - 138 sec Blood 09/04/2024 8:18 AM INTERNET MARKETING MANAGER 09/04/2024 8:18 AM INTERNET MARKETING MANAGER Ze Boucher MD LAB BLOOD ORDERABLES Final Res ult Performing Organization Address [facility]/ZIP Co de Phone Number NICOEL [address] [address] [facility] [place] [address] * Check Sample (09/04/2024 6:51 AM INTERNET MARKETING MANAGER) Pathologist [facility] [place] ABO Rh B Positive CH HCLL OTHER 09/04/2024 6:5 1 AM INTERNET MARKETING MANAGER 09/04/2024 6:51 AM INTERNET MARKETING MANAGER Ze Boucher MD LAB BLOOD ORDERABLES Final Res ult Performing Organization Address [facility] de Phone Number NICOLE [address] [address] [facility] [place] [address] CH * POCT hCG, urine (09/04/2024 6:30 AM INTERNET MARKETING MANAGER) Pathologist [facility] [place] HCG, ur, POC Negative Negative Lot Number [id number] QC Backgroud Clear Acceptable QC Control Line Acceptable Urine 09/04/2024 6:30 AM INTERNET MARKETING MANAGER Ze Boucher MD POINT OF CARE TEST ORDERABLES Final Result * Prepare RBC: 4 Units (09/04/2024 5:35 AM INTERNET MARKETING MANAGER) Product code [id number] CERNER CH Unit Number [id number] 5-4 CERNER CH Product Blood Type BPOS CERNER CH Dispense Status RETURNED CERNER CH Product code Q2935K11 Unit Number [id number] 0-R CERNER CH Product Blood Type BPOS CERNER CH Dispense Status RETURNED CERNER CH Product code G1544P05 CERNER CH Unit Number [id number] 8-E CERNER CH Product Blood Type BPOS CERNER CH Dispense Status RETURNED CERNER CH Product code [id number] NICOLE CH Unit Number [id number] 6-V [facility]ERNER CH Product Blood Type BPOS CERNER CH Dispense Status RETURNED CERNER CH Blood 09/04/2024 5:35 AM INTERNET MARKETING MANAGER Narrative NICOLE - 09/05/2024 12:07 AM INTERNET MARKETING MANAGER Specify Procedure:->AVR Are special requirements needed? (All products are leukoreduced and CMV- safe)- >No Date required:-[id number] LRRBC # of [id number] Reasons:-Hold for procedure (specify procedure)} us Leeann dOom NP BLOOD BANK PRODUCT ORDERA BLES Final Result Performing Organization Address [facility] Co de Phone Number NICOLE [address] [address] Department [place] [address] * ECG 12 lead (08/24/2024 9:48 AM INTERNET MARKETING MANAGER) 08/24/2024 9:48 AM INTERNET MARKETING MANAGER Narrative [facility] - 08/24/2024 3:02 PM INTERNET MARKETING MANAGER Vent Rate: 94 bpm RR Interval: 635 msec TX Interval: 132 msec QRS Duration: 96 msec QT Interval: 343 msec QTC Interval: 395 msec P-R-T Olive: 7 - -7 - 24 degrees IMPRESSION: SINUS RHYTHM INFERIOR MYOCARDIAL INFARCTION , PROBABLY OLD ABNORMAL ECG Electronically Signed By: Joseluis Sherman MD Ze Boucher MD ECG ORDERABLES Final Result Performing Organization Address [facility] Co de Phone Number [employer] [facility] * XR Chest PA Lateral 2 View (08/24/2024 9:27 AM INTERNET MARKETING MANAGER) Anatomical Region Laterality Modality Body, Chest N/A Computed Radiogr aphy 08/24/2024 12:0 4 PM INTERNET MARKETING MANAGER Impressions 08/24/2024 12:04 PM INTERNET MARKETING MANAGER No acute cardiopulmonary findings. Electronically signed by: Feliciano Guevara II, D.O. Narrative 08/24/2024 12:04 PM INTERNET MARKETING MANAGER EXAMINATION: XR CHEST PA LATERAL 2 VIEWS DATE: 08/24/2024 9:15 AM INDICATION: Aortic valve stenosis. COMPARISON: 08/24/2024. FINDINGS: No pneumothorax, pleural effusion, or pulmonary consolidation is demonstrated. The cardiomediastinal silhouette is within normal limits. No acute osseous abnormality demonstrated. Procedure Note Feliciano Guevara II, DO - 08/24/2024 EXAMINATION: XR CHEST PA LATERAL 2 VIEWS DATE: 08/24/2024 9:15 AM INDICATION: Aortic valve stenosis. COMPARISON: 08/24/2024. FINDINGS: No pneumothorax, pleural effusion, or pulmonary consolidation is demonstrated. The cardiomediastinal silhouette is within normal limits. No acute osseous abnormality demonstrated. IMPRESSION: No acute cardiopulmonary findings. Electronically signed by: Feliciano Guevara II, D.O. us Ze Boucher MD IMG XR PROCEDURES Final Result * eGFR (08/24/2024 9:25 AM INTERNET MARKETING MANAGER) eGFR 76 >=60 mL/min/1. 73 m2 Comment: Interpretive Data Reference Interval Normal >/= 90 mL/min/1.73m2 Mildly decreased* 60 - 89 mL/min/1.73m2 Mildly to moderately decreased 45 - 59 mL/min/1.73m2 Moderately to severely decreased 30 - 44 mL/min/1.73m2 Severely decreased 15 - 29 mL/min/1.73m2 Kidney Failure < 15 mL/min/1.73m2 *Relative to young adult level Estimated glomerular filtration rate is determined by the 2020 CKD-EPI equation recommended by the National Kidney Foundation (A Unifying Approach to GFR Estimation: Recommendations of the NKF-ASK Task Force on Reassessing the Inclusion of Race in Diagnosing Kidney Disease, JASN 2020). The CKD-EPI equation should not be used for patients with unstable renal function and has not been validated in children and those over 70. Current interpretive data was last reviewed 2021. Blood 08/24/2024 9:25 AM INTERNET MARKETING MANAGER 08/24/2024 9:37 AM INTERNET MARKETING MANAGER us Ze Boucher MD LAB BLOOD ORDERABLES Final Res ult Performing Organization Address [facility] Co de Phone Number NICOLE RAMOS [address] [address] [place] [address] * Urinalysis reflex to microscopic and culture Urine, clean voided (08/24/2024 9:25 AM INTERNET MARKETING MANAGER) Color, ur Yellow Yellow Clarity, ur Clear Clear [facility] CH Specific gravity, ur 1.024 1.003 - 1.030 [facility] CH pH, urine 5.5 [facility]ERNER CH Comment: Interpretive Data U rine pH is affected by diet, medications, systemic acid-base disturbances, and renal tubular function. pH may affect urinary stone formation. For example, urine pH below 6.0 may help reduce the tendency for calcium phosphate stones and pH greater than 6.0 may reduce the tendency for uric acid stone formation. Source: [facility] Current Interpretive Data was last revised on 2017 Protein, ur ql Negative Negative CERNER CH Glucose, ur ql Negative Negative [facility]ERN[facility] CH Ketones, ur Negative Negative [facility]ERN[facility] CH Bilirubin, ur Negative Negative [facility]ERNER CH Blood, ur Negative Negative [facility] CH Urobilinogen, ur <2.0 <2.0 mg/dL CERNER CH Nitrite, ur Negative Negative [facility]ERNER CH Leukocyte esterase, ur Negative Negative [facility]ERNER CH UA reflex comment Reflex conditions for microscopic UA and culture not met. CERNER CH Urine, clean voided 08/24/2024 9:25 AM INTERNET MARKETING MANAGER 08/24/2024 9:53 AM INTERNET MARKETING MANAGER Ze Boucher MD LAB MICROBIOLOGY - GENERAL ORD ERABLES Final Result Performing Organization Address [facility] Co de Phone Number NICOLE RAMOS [address] [address] Department [employer] [address] * aPTT (08/24/2024 9:25 AM INTERNET MARKETING MANAGER) aPTT 30 28 - 38 sec Comment: Interpretive Data Heparin therapeutic range: 66.0 - 100.0 seconds. Range based on correlation with therapeutic heparin activity range of 0.3 - 0.7 Units/mL. Current interpretive data was last revised on 2023. Blood 08/24/2024 9:25 AM INTERNET MARKETING MANAGER 08/24/2024 9:37 AM INTERNET MARKETING MANAGER Ze Boucher MD LAB BLOOD ORDERABLES Final Res ult Performing Organization Address [facility] de Phone Number NICOLE RAMOS [address] [address] [facility] [employer] [place], [place] [id number] * Protime-INR (08/24/2024 9:25 AM INTERNET MARKETING MANAGER) PT 10.4 9.7 - 13.0 sec INR 0.96 0.90 - 1.20 [facility] Comment: Interpretive data Oral anticoagulant therapeutic ranges: Venous thromboembolism prophylaxis or treatment: 2.0-3.0 CARDIOLOGY Standard range: 2.0-3.0 High-intensity range: 2.5-3.5 Refer to indication-specific guidelines for appropriate target ranges for prosthetic heart valve replacement. Current interpretive data was last revised on 2019. Blood 08/24/2024 9:25 AM INTERNET MARKETING MANAGER 08/24/2024 9:37 AM INTERNET MARKETING MANAGER Ze Boucher MD LAB BLOOD ORDERABLES Final Res ult Performing Organization Address [facility] Co de Phone Number NICOLE RAMOS [phone] [address] [facility] [place] [address] * CBC without differential (08/24/2024 9:25 AM INTERNET MARKETING MANAGER) WBC 8.1 3.8 - 9.9 K/cumm Hgb 14.2 11.9 - 15.5 g/dL [facility] Hct 43.6 35.6 - 45.5 % [facility] Plt 152 150 - 400 K/cumm [facility] MPV 9.9 9.1 - 12.3 fL [facility] RBC 5.00 3.90 - 5.20 M/cumm [facility] MCV 87.2 81.3 - 96.4 fL [facility] MCH 28.4 27.1 - 33.3 pg [facility] MCHC 32.6 32.3 - 35.7 g/dL CERNER CH RDW CV 12.2 11.1 - 14.9 % [facility] RDW SD 39.1 35.7 - 48.1 fL [facility] NR[facility] abs 0.00 0.00 - 0.01 K/cumm [facility] Blood 08/24/2024 9:25 AM INTERNET MARKETING MANAGER 08/24/2024 9:37 AM INTERNET MARKETING MANAGER Ze Boucher MD LAB BLOOD ORDERABLES Final Res ult Performing Organization Address City/[facility] Co de Phone Number [facility] [id number] [address] Department of [employer] [place], [place] [id number] * Type and screen (08/24/2024 9:25 AM INTERNET MARKETING MANAGER) Pathologist [facility] [place] Josefa, indirect Negative ABO Rh B Positive [facility] Blood 08/24/2024 9:25 AM INTERNET MARKETING MANAGER 08/24/2024 9:37 AM INTERNET MARKETING MANAGER Narrative [facility] - 08/24/2024 10:19 AM INTERNET MARKETING MANAGER Has the patient had Daratumumab or Isatuximab in the past 6 months?->Unknown Ze Boucher MD LAB BLOOD BANK TEST ORDERABLES Final Result Performing Organization Address [facility] de Phone Number [facility] [id number] [address] [facility] [place] [address] * Basic metabolic panel (08/24/2024 9:25 AM INTERNET MARKETING MANAGER) Pathologist [facility] [place] Sodium 137 135 - 145 mmol/L Potassium, pl 3.8 3.3 - 4.9 mmol/L [facility] Chloride 104 97 - 110 mmol/L [facility] CO2 22 22 - 32 mmol/L [facility] Anion gap 11 2 - 15 mmol/L [facility] BUN 13 6 - 25 mg/dL [facility] Creatinine 0.90 0.60 - 1.10 mg/dL [facility] Glucose 102 70 - 199 mg/dL [facility] Comment: Interpretive Data Fasting glucose >/= 126 mg/dl is diagnostic for diabetes. Fasting is defined as no caloric intake for at least 8 hours. Fasting glucose between 100 mg/dl to 125 mg/dl is diagnostic of prediabetes. In a patient with classic symptoms of hyperglycemia or hyperglycemic crisis, a random glucose >/= 200 mg/dl is diagnostic for diabetes. In the absence of unequivocal hyperglycemia, results should be confirmed by repeat testing. The classification and Diagnosis of Diabetes Diabetes Care 2021; 46: S19-S40. Current interpretive data was last revised 2022. Calcium 9.5 8.5 - 10.3 mg/dL [facility] Blood 08/24/2024 9:25 AM INTERNET MARKETING MANAGER 08/24/2024 9:37 AM INTERNET MARKETING MANAGER us Ze Boucher MD LAB BLOOD ORDERABLES Final Res ult [facility] [id number] [address] Department [place] [address] from Last 3 Months Insurance # [address] [place] [address] [place] [address] [facility] Advance Directives For more information, please contact: [phone] * Full Code (Latest Code Status on File) Date Activated Date Inactivated Comments 09/04/2024 12:23 PM 09/08/2024 9:18 PM Healthcare Agents on File Name Relationship Healthcare Agent Relationshi p Communication Nitesh Limon Spouse Health Care Agent Care Teams Gang Miner Relationship Specialty Start Date End Date Geovany Wong DO [address] [place] [address] PCP - General Internal Medicine 09/06/24 Dl Phillips MD Referring Physician Cardiology 12/23/22 Severino Aden MD [address] [place] [address] Consulting Physician Cardiothoracic Surgery 12/23/22 Ze Boucher MD [id number] [place] [address] Surgeon Cardiothoracic Surgery 09/08/24 Qasim Ross MD [address] [facility] [address] [place] [address] Consulting Physician Cardiology 09/08/24
--- OUTSIDE RECORDS SUMMARY | 2024-11-05 16:45 | XMS_ITS | Referral Summary ---
Author Organization [facility] [address] Address [address] [place] [address] Care Team Providers Care Sap Bpc Architect Name Role Phone Dl Phillips MD Unavailable [phone] Severino Aden MD Unavailable [phone] Geovany Wong DO Primary Care Provider [phone] Talya Boucher MD Unavailable [phone] Qasim Ross MD Unavailable Encounters Date Type Department Care Team Description 10/04/2024 2:00 PM ELASTIC ATTACHER ZIGZAG Office Visit [facility] Surgery [address] [place] [address] [address] [place] [address] Leeann Odom NP S/P AVR (aortic valve replacement) (Primary Dx) 09/26/2024 Orders Only [facility] Surgery [address] [place] [address] [address] [place] [address] Cynthia Haley NP 09/26/2024 Documentation [facility] [address] [place] [address] [address] [place] [address] Cynthia Haley NP Anticoagulation 09/26/2024 Documentation [facility] Surgery [address] [place] [address] [address] [place] [address] Leeann Odom NP RTW Form 09/26/2024 Orders Only [facility] Surgery [address] [place] [address] [address] [place] [address] Leeann Odom NP H/O heart valve replacement with mechanical valve (Primary Dx) 09/26/2024 8:00 AM ELASTIC ATTACHER ZIGZAG Home Care Visit [address] [place] [address] Jaclyn Nava RN SN NON OASIS DISCHARGE 09/25/2024 Orders Only [facility] [address] [place] [address] [place] [phone] Qasim Ross MD 09/25/2024 Telephone [facility] [address] [place] [address] [place] [phone] Qasim Ross MD 09/25/2024 10:30 AM ELASTIC ATTACHER ZIGZAG Office Visit [place] [address] [place] [phone] Qasim Ross MD H/O mechanical aortic valve replacement (Primary Dx) 09/24/2024 Orders Only [facility] [address] [place] [address] [address] [place] [address] Cynthia Haley NP 09/21/2024 Documentation [facility] [address] [place] [address] [address] [place] [address] Leeann Odom NP INR Management 09/21/2024 10:00 AM ELASTIC ATTACHER ZIGZAG Home Care Visit [address] [place] [address] Jaclyn Nava RN SN HOME VISIT 09/18/2024 Documentation [facility] [address] [place] [address] [address] [place] [address] Leeann Odom NP 09/18/2024 9:00 AM ELASTIC ATTACHER ZIGZAG Home Care Visit [address] [place] [address] Jaclyn Nava RN SN HOME VISIT 09/14/2024 11:10 AM ELASTIC ATTACHER ZIGZAG - 09/14/2024 11:59 PM ELASTIC ATTACHER ZIGZAG Hospital Encounter [address] [address] Discharge Disposition: Discharge to home or self care 09/14/2024 Anticoagulation Telephone Call [facility] [address] [place] [address] [address] [place] [address] Joey Oconnor NP 09/14/2024 Documentation [facility] [address] [place] [address] [address] [place] [address] Cynthia Haley NP Anticoagulation 09/14/2024 9:00 AM ELASTIC ATTACHER ZIGZAG Home Care Visit [address] [place] [address] Jess Aguirre RN SN HOME VISIT 09/13/2024 5:00 PM ELASTIC ATTACHER ZIGZAG Ancillary Procedure [facility] Medical Group Imaging at [address] [phone] Left shoulder pain, unspecified chronicity 09/13/2024 4:45 PM ELASTIC ATTACHER ZIGZAG Ancillary Procedure [facility] Medical [facility] Imaging at [address] [phone] Aortic stenosis due to bicuspid aortic valve 09/13/2024 Orders Only [facility] [address] [place] [address] [address] [place] [address] Cynthia Haley NP Aortic stenosis due to bicuspid aortic valve (Primary Dx); Left shoulder pain, unspecified chronicity 09/11/2024 [facility] Post Discharge Follow up phone call [facility] [address] [place] [address] Shagufta Ureña RN 09/11/2024 Documentation [facility] [address] [place] [address] [address] [place] [phone] Cynthia Haley NP Anticoagulation 09/11/2024 Plan of Care Documentation [address] [place] [address] 09/11/2024 11:00 AM ELASTIC ATTACHER ZIGZAG Home Care Visit [facility] [address] [place] [address] Kevin Glover, BERTHA SN NON OASIS START OF CARE 09/10/2024 Telephone [facility] Home Care Services [address] [place] [address] Naga Devi MA 09/10/2024 Orders Only [facility] Surgery [address] [place] [address] [address] [place] [phone] Cynthia Haley NP 09/08/2024 Home Care Visit [facility] [address] [place] [phone] Katy Clark RN SN TRIAGE ENCOUNTER 09/04/2024 5:32 AM ELASTIC ATTACHER ZIGZAG - 09/08/2024 5:00 PM ELASTIC ATTACHER ZIGZAG Hospital Encounter [address] [address] Talya Boucher MD Aortic stenosis, severe (Primary Dx); Aortic valve stenosis, etiology of cardiac valve disease unspecified; Aortic regurgitation due to bicuspid aortic valve Discharge Disposition: Discharge to home, home health skilled care 09/04/2024 7:30 AM ELASTIC ATTACHER ZIGZAG - 09/04/2024 1:00 PM ELASTIC ATTACHER ZIGZAG Surgery [facility] Operating Room [address] [place] [address] Talya Boucher MD REPLACEMENT AORTIC VALVE/270MIN 09/04/2024 7:35 AM ELASTIC ATTACHER ZIGZAG Anesthesia Event [facility] Operating Room [address] [place] [address] Augie Gannon MD Ware, Melita C., NP 08/24/2024 Anticoagulation Visit [facility] Medical Group Cardiology [address], [place] [address] Echo Fofana RN 08/24/2024 9:11 AM ELASTIC ATTACHER ZIGZAG - 08/24/2024 11:59 PM ELASTIC ATTACHER ZIGZAG Hospital Encounter [facility] Diagnostic Imaging [address] [place] [address] Discharge Disposition: Discharge to home or self care 08/24/2024 8:45 AM ELASTIC ATTACHER ZIGZAG Pre-Admission Testing [facility] Pre Anesthesia Testing [address] [place] [address] Aortic valve stenosis, etiology of cardiac valve disease unspecified 08/16/2024 Orders Only [facility] Surgery [address] [place] [address] [address] [place] [address] Talya Boucher MD Aortic stenosis due to bicuspid aortic valve (Primary Dx) 08/16/2024 2:00 PM ELASTIC ATTACHER ZIGZAG Office Visit [facility] Surgery [address] [place] [address] Talya Boucher MD Aortic stenosis due to bicuspid aortic valve (Primary Dx); Aortic valve stenosis, etiology of cardiac valve disease unspecified; Bicuspid aortic valve from Last 3 Months Allergies Active Allergy Reactions Criticality Noted Date [...] MOUTH WITH FOOD NIGHTLY FOR 90 DAYS 024 Active acetaminophen 500 mg capsuleIndications :Pain Take [...] total) by mouth daily 15 tablet 1 2024 Active Additional Information Patient not taking.Reported on 09/25/2024 gabapentin (NEURONTIN) 300 mg capsuleIndications :Postoperative Acute Pain Take 1 capsule (300 mg total) by mouth 3 (three) times a day for 14 days 42 capsule Active Additional Information Patient not taking.Reported on 09/25/2024 warfarin (COUMADIN) 2 mg tabletIndications: VTE Prophylaxis Following Ortho Surgery Take 2 mg by mouth daily. PT TO TAKE 4MG ON 09/11/24 THEN 2MG DAILY UNTIL INR RECHECKED Indications: VTE Prophylaxis Following Ortho Surgery Active warfarin (COUMADIN) 2 mg tabletIndications: Mechanical [...] 3 (three) times a day 90 tablet 2024 Active Problems Problem Noted Date Diagnosed [...] calories 1 Body mass index 40.0-44.9, adult ([facility]) 05/13 Congenital bicuspid aortic valve 02/17/2023 Hypertrophy [...] abnormalities Clinically pot euthyroid Recheck TFT at [facility] [place] and further plans based on it Near [...] needed. This was a telemedicine visit with Ms. Austin Limon which took place via tele doc During the visit, I was located in my office and the patient was located at home in the [facility]. The patient visit started at [...] billed and/or responsible for any applicable copayments. @SHA@ @RI@ Assessment & Plan (10/15/2021 8:38 AM CDT): [...] the records for a blood work from [facility] accordingly. She does not have any [...] deep vein thrombosis (DVT) of lower extremity (CMS/HCC) 07/28/2016 Overview (11/06/2016): Chronic deep vein thrombosis [...] the records for a blood work from [facility] accordingly. She does not have any [...] hypertension 10/29/2014 Overview (11/06/2016): HTN (hypertension), benign Immunizations Immunization Administration Dates Next Due Influenza, Trivalent, Preservative Free, Intramu scular 09/08/2024 Pfizer SARS-CoV-2 Monovalent Vaccination (12+ Yrs) PURPLE 01/06/2021 Social History Tobacco Use Types Packs/Day Years [...] experiencing loneliness or isolatio n Never 09/11/2024 [facility] Utilities Answer Date Recorded In the past 12 months has e [employer], gas, oil, or water [employer] threatened to shut off services in your [...] often do you attend chur ch or adventism services? Never 09/06/2024 Do you belong to any clubs o r organizations such as advent groups, unions, fraternal or athletic groups, or [...] any time in the past 12 m [facility], were you homeless or living in a detention (including now)? No 09/06/2024 Personal Safety Answer Date Recorded Have you ever been in or are you currently in a harmful physical or emotional relationship or is someone making you feel afraid or unsafe? Denies 09/04/2024 Comments Unknown Sex and Gender Information Value Date Recorded Sex Assigned at Not on file Legal Sex Female 2:03 AM ELASTIC ATTACHER ZIGZAG Gender Identity Not on file Sexual Orientation Not on file Last Filed Vital Signs Vital Sign Reading Time Taken Comments Blood Pressure 127/74 10/04/2024 2:21 PM ELASTIC ATTACHER ZIGZAG Pulse 80 10/04/2024 2:21 PM ELASTIC ATTACHER ZIGZAG Temperature 36.5 C (97.7 F) 09/26/2024 8:47 AM ELASTIC ATTACHER ZIGZAG Respiratory Rate 14 10/04/2024 2:21 PM ELASTIC ATTACHER ZIGZAG Oxygen Saturation 98% 10/04/2024 2:21 PM ELASTIC ATTACHER ZIGZAG Inhaled Oxygen Concentration - - Weight 106.1 kg (234 lb) 10/04/2024 2:21 PM ELASTIC ATTACHER ZIGZAG Height 162.6 cm (5' 4 ) 10/04/2024 2:21 PM ELASTIC ATTACHER ZIGZAG Body Mass Index 40.17 10/04/2024 2:21 PM ELASTIC ATTACHER ZIGZAG Plan of Treatment Not on file Medical Devices Implanted Type Area Pocket Grinder Operator Device Identifier Shelf Expiration Date Model / Serial / Lot [employer] Plate Bone Low Profile 6 Hole H Shape Sternum Ti 115.102.06 - [id number] Implanted:Qt y: 1 on 09/04/2024 by Talya Boucher MD at [facility] Plate N/A: Sternum [employer] 115.102.0 6 / / [employer] Plate Bone Low Profile 4 Hole Box Sternum Ti 115.103.04 - [id number] Implanted:Qt y: 1 on 09/04/2024 by Talya Boucher MD at [facility] Plate N/A: Sternum [employer] 115.103.0 4 / / [employer] Plate Bone Low Profile 6 Hole O Shape Sternum Ti 115.104.06 - [id number] Implanted:Qt y: 1 on 09/04/2024 by Talya Boucher MD at [facility] Plate N/A: Sternum [employer] 115.104.0 6 / / [employer] Master-Serie s 23mm 18.6mm Cuff Leaflet Open Control Torque 23aj-501 - [id number] - [id number] Implanted:Qt y: 1 on 09/04/2024 by Talya Boucher MD at [facility] Prosthetic Valve N/A: Aortic Valve [employer] 02/26/2026 23AJ-501 / [id number] / 00 [employer] Screw Bone Slf Drl Full Thread Locking 3.5x14mm Ti 100.035.14 - [id number] Implanted:Qt y: 10 on 09/04/2024 by Talya Boucher MD at [facility] Screw N/A: Sternum [employer] 100.035.1 4 / / [employer] Screw Bone Slf Drl Full Thread Locking 3.5x16mm Ti 100.035.16 - [id number] Implanted:Qt y: 6 on 09/04/2024 by Talya Boucher MD at [facility] Screw N/A: Sternum [employer] 100.035.1 6 / / Procedures Procedure Name Priority Date/Time Associated Diagnosis Comments PROTIME-INR Routine 10/31/2024 6:06 AM CDT H/O heart valve replacement with mechanical valve PROTIME-INR Routine 10/03/2024 6:38 AM ELASTIC ATTACHER ZIGZAG H/O heart valve replacement with mechanical valve POCT PROTHROMBIN TIME/INR Routine 09/26/2024 8:41 AM ELASTIC ATTACHER ZIGZAG POCT PROTHROMBIN TIME/INR Routine 09/21/2024 10:24 AM ELASTIC ATTACHER ZIGZAG POCT PROTHROMBIN TIME/INR Routine 09/18/2024 9:04 AM ELASTIC ATTACHER ZIGZAG POCT PROTHROMBIN TIME/INR Routine 09/14/2024 11:31 AM ELASTIC ATTACHER ZIGZAG EGFR Routine 09/14/2024 11:10 AM ELASTIC ATTACHER ZIGZAG DIFFERENTIAL AUTO Routine 09/14/2024 11:10 AM ELASTIC ATTACHER ZIGZAG CBC WITH AUTO DIFFERENTIAL Routine 09/14/2024 11:10 AM ELASTIC ATTACHER ZIGZAG COMPREHENSIVE METABOLIC PANEL Routine 09/14/2024 11:10 AM ELASTIC ATTACHER ZIGZAG XR SHOULDER LEFT 2 OR MORE VIEWS Schedule Routine, Read Routine (OP Routine) 09/13/2024 4:37 PM ELASTIC ATTACHER ZIGZAG Left shoulder pain, unspecified chronicity XR CHEST PA LATERAL 2 VIEWS Schedule Routine, Read Routine (OP Routine) 09/13/2024 4:28 PM ELASTIC ATTACHER ZIGZAG Aortic stenosis due to bicuspid aortic valve POCT PROTHROMBIN TIME/INR Routine 09/11/2024 11:59 AM ELASTIC ATTACHER ZIGZAG TRANSTHORACIC ECHO (TTE) COMPLETE W DOPPLER/CF WO CONTRAST STAT 09/08/2024 5:45 PM ELASTIC ATTACHER ZIGZAG XR CHEST 1 VIEW IP Routine 09/08/2024 6:17 AM ELASTIC ATTACHER ZIGZAG EGFR Routine 09/08/2024 4:43 AM ELASTIC ATTACHER ZIGZAG BASIC METABOLIC PANEL Routine 09/08/2024 4:43 AM ELASTIC ATTACHER ZIGZAG CBC WITHOUT DIFFERENTIAL Routine 09/08/2024 4:43 AM ELASTIC ATTACHER ZIGZAG PROTIME-INR Routine 09/08/2024 4:43 AM ELASTIC ATTACHER ZIGZAG XR CHEST 1 VIEW IP Routine 09/07/2024 5:30 AM ELASTIC ATTACHER ZIGZAG EGFR Routine 09/07/2024 4:49 AM ELASTIC ATTACHER ZIGZAG BASIC METABOLIC PANEL Routine 09/07/2024 4:49 AM ELASTIC ATTACHER ZIGZAG CBC WITHOUT DIFFERENTIAL Routine 09/07/2024 4:49 AM ELASTIC ATTACHER ZIGZAG PROTIME-INR Routine 09/07/2024 4:49 AM ELASTIC ATTACHER ZIGZAG APTT STAT 09/06/2024 2:10 PM ELASTIC ATTACHER ZIGZAG PROTIME-INR STAT 09/06/2024 2:10 PM ELASTIC ATTACHER ZIGZAG EGFR Timed 09/06/2024 12:52 PM ELASTIC ATTACHER ZIGZAG MAGNESIUM Timed 09/06/2024 12:52 PM ELASTIC ATTACHER ZIGZAG CALCIUM,IONIZED, WHOLE BLOOD Timed 09/06/2024 12:52 PM ELASTIC ATTACHER ZIGZAG RENAL FUNCTION PANEL Timed 09/06/2024 12:52 PM ELASTIC ATTACHER ZIGZAG POCT GLUCOSE DEVICE Routine 09/06/2024 11:55 AM ELASTIC ATTACHER ZIGZAG POCT GLUCOSE DEVICE Routine 09/06/2024 7 :33 AM ELASTIC ATTACHER ZIGZAG CRITICAL CARE Routine 09/06/2024 7:00 AM ELASTIC ATTACHER ZIGZAG Aortic regurgitation due to bicuspid aortic valve XR CHEST 1 VIEW IP Routine 09/06/2024 5:34 AM ELASTIC ATTACHER ZIGZAG EGFR Routine 09/06/2024 3:28 AM ELASTIC ATTACHER ZIGZAG CBC WITHOUT DIFFERENTIAL Routine 09/06/2024 3:28 AM ELASTIC ATTACHER ZIGZAG MAGNESIUM Routine 09/06/2024 3:28 AM ELASTIC ATTACHER ZIGZAG BASIC METABOLIC PANEL Routine 09/06/2024 3:28 AM ELASTIC ATTACHER ZIGZAG PHOSPHORUS Routine 09/06/2024 3:28 AM ELASTIC ATTACHER ZIGZAG POCT GLUCOSE DEVICE Routine 09/05/2024 9 :00 PM ELASTIC ATTACHER ZIGZAG POCT GLUCOSE DEVICE Routine 09/05/2024 5 :08 PM ELASTIC ATTACHER ZIGZAG EGFR STAT 09/05/2024 3:29 PM ELASTIC ATTACHER ZIGZAG MAGNESIUM STAT 09/05/2024 3:29 PM ELASTIC ATTACHER ZIGZAG BASIC METABOLIC PANEL STAT 09/05/2024 3:29 PM ELASTIC ATTACHER ZIGZAG CBC WITHOUT DIFFERENTIAL STAT 09/05/2024 3:29 PM ELASTIC ATTACHER ZIGZAG CALCIUM,IONIZED, WHOLE BLOOD STAT 09/05/2024 3:25 PM ELASTIC ATTACHER ZIGZAG POCT GLUCOSE DEVICE Routine 09/05/2024 12:46 PM ELASTIC ATTACHER ZIGZAG ECG 12-LEAD STAT 09/05/2024 8:41 AM ELASTIC ATTACHER ZIGZAG CBC WITHOUT DIFFERENTIAL STAT 09/05/2024 7:51 AM ELASTIC ATTACHER ZIGZAG APTT STAT 09/05/2024 7:47 AM ELASTIC ATTACHER ZIGZAG PROTIME-INR STAT 09/05/2024 7:47 AM ELASTIC ATTACHER ZIGZAG CRITICAL CARE Routine 09/05/2024 7:05 AM ELASTIC ATTACHER ZIGZAG Aortic regurgitation due to bicuspid aortic valve POCT GLUCOSE DEVICE Routine 09/05/2024 7 :05 AM ELASTIC ATTACHER ZIGZAG XR CHEST 1 VIEW IP Routine 09/05/2024 5:47 AM ELASTIC ATTACHER ZIGZAG T3, FREE Routine 09/05/2024 3:49 AM ELASTIC ATTACHER ZIGZAG EGFR Routine 09/05/2024 3:49 AM ELASTIC ATTACHER ZIGZAG T4, FREE Routine 09/05/2024 3:49 AM ELASTIC ATTACHER ZIGZAG DIFFERENTIAL AUTO Routine 09/05/2024 3:4 9 AM ELASTIC ATTACHER ZIGZAG HEMOGLOBIN A1C Routine 09/05/2024 3:49 AM ELASTIC ATTACHER ZIGZAG THYROID FUNCTION CASCADE Routine 09/05/2024 3:49 AM ELASTIC ATTACHER ZIGZAG LIPID PANEL Routine 09/05/2024 3:49 AM ELASTIC ATTACHER ZIGZAG OXYHEMOGLOBIN, PULMONARY ARTERY Routine 09/05/2024 3:49 AM ELASTIC ATTACHER ZIGZAG PHOSPHORUS Routine 09/05/2024 3:49 AM ELASTIC ATTACHER ZIGZAG MAGNESIUM Routine 09/05/2024 3:49 AM ELASTIC ATTACHER ZIGZAG BASIC METABOLIC PANEL Routine 09/05/2024 3:49 AM ELASTIC ATTACHER ZIGZAG CBC WITH AUTO DIFFERENTIAL Routine 09/05/2024 3:49 AM ELASTIC ATTACHER ZIGZAG POCT GLUCOSE DEVICE Routine 09/05/2024 2 :19 AM ELASTIC ATTACHER ZIGZAG CRITICAL CARE Routine 09/04/2024 11:38 PM ELASTIC ATTACHER ZIGZAG Aortic regurgitation due to bicuspid aortic valve POCT GLUCOSE DEVICE Routine 09/04/2024 9 :48 PM ELASTIC ATTACHER ZIGZAG POCT GLUCOSE DEVICE Routine 09/04/2024 8 :41 PM ELASTIC ATTACHER ZIGZAG POCT GLUCOSE DEVICE Routine 09/04/2024 7 :16 PM ELASTIC ATTACHER ZIGZAG BLOOD GAS, ARTERIAL Timed 09/04/2024 6 :16 PM ELASTIC ATTACHER ZIGZAG POCT GLUCOSE DEVICE Routine 09/04/2024 6 :13 PM ELASTIC ATTACHER ZIGZAG EGFR STAT 09/04/2024 5:25 PM ELASTIC ATTACHER ZIGZAG CALCIUM,IONIZED, WHOLE BLOOD STAT 09/04/2024 5:25 PM ELASTIC ATTACHER ZIGZAG PHOSPHORUS STAT 09/04/2024 5:25 PM ELASTIC ATTACHER ZIGZAG MAGNESIUM STAT 09/04/2024 5:25 PM ELASTIC ATTACHER ZIGZAG BASIC METABOLIC PANEL STAT 09/04/2024 5:25 PM ELASTIC ATTACHER ZIGZAG CBC WITHOUT DIFFERENTIAL Timed 09/04/2024 5:25 PM ELASTIC ATTACHER ZIGZAG BLOOD GAS, ARTERIAL Timed 09/04/2024 5 :25 PM ELASTIC ATTACHER ZIGZAG POCT GLUCOSE DEVICE Routine 09/04/2024 5 :06 PM ELASTIC ATTACHER ZIGZAG POCT GLUCOSE DEVICE Routine 09/04/2024 3 :55 PM ELASTIC ATTACHER ZIGZAG BLOOD CULTURE Routine 09/04/2024 3:42 PM ELASTIC ATTACHER ZIGZAG BLOOD CULTURE Routine 09/04/2024 3:42 PM ELASTIC ATTACHER ZIGZAG CALCIUM,IONIZED, WHOLE BLOOD STAT 09/04/2024 3:21 PM ELASTIC ATTACHER ZIGZAG BLOOD GAS, ARTERIAL STAT 09/04/2024 3 :21 PM ELASTIC ATTACHER ZIGZAG POCT GLUCOSE DEVICE Routine 09/04/2024 2 :48 PM ELASTIC ATTACHER ZIGZAG POCT GLUCOSE DEVICE Routine 09/04/2024 1 :49 PM ELASTIC ATTACHER ZIGZAG CRITICAL CARE Routine 09/04/2024 1:12 PM ELASTIC ATTACHER ZIGZAG Aortic regurgitation due to bicuspid aortic valve XR CHEST 1 VIEW Critical/Life-T hreatening 09/04/2024 12:57 PM ELASTIC ATTACHER ZIGZAG SURGICAL PATHOLOGY Routine 09/04/2024 12:35 PM ELASTIC ATTACHER ZIGZAG Aortic valve stenosis, etiology of cardiac valve disease unspecified PHOSPHORUS Add-On 09/04/2024 12:27 PM ELASTIC ATTACHER ZIGZAG MAGNESIUM Add-On 09/04/2024 12:27 PM ELASTIC ATTACHER ZIGZAG EGFR STAT 09/04/2024 12:27 PM ELASTIC ATTACHER ZIGZAG APTT STAT 09/04/2024 12:27 PM ELASTIC ATTACHER ZIGZAG PROTIME-INR STAT 09/04/2024 12:27 PM ELASTIC ATTACHER ZIGZAG CBC WITHOUT DIFFERENTIAL Timed 09/04/2024 12:27 PM ELASTIC ATTACHER ZIGZAG BLOOD GAS, ARTERIAL Timed 09/04/2024 12:27 PM ELASTIC ATTACHER ZIGZAG BASIC METABOLIC PANEL STAT 09/04/2024 12:27 PM ELASTIC ATTACHER ZIGZAG PHOSPHORUS Add-On 09/04/2024 12:27 PM ELASTIC ATTACHER ZIGZAG POCT GLUCOSE DEVICE Routine 09/04/2024 11:55 AM ELASTIC ATTACHER ZIGZAG POC BLOOD GAS AND CHEMISTRIES, ARTERIAL Routine 09/04/2024 11:04 AM ELASTIC ATTACHER ZIGZAG POCT ACTIVATED CLOTTING TIME, HIGH RANGE Routine 09/04/2024 11:00 AM ELASTIC ATTACHER ZIGZAG POC BLOOD GAS AND CHEMISTRIES, ARTERIAL Routine 09/04/2024 10:20 AM ELASTIC ATTACHER ZIGZAG POCT ACTIVATED CLOTTING TIME, HIGH RANGE Routine 09/04/2024 10:19 AM ELASTIC ATTACHER ZIGZAG POC BLOOD GAS AND CHEMISTRIES, ARTERIAL Routine 09/04/2024 9:57 AM ELASTIC ATTACHER ZIGZAG PLATELET COUNT STAT 09/04/2024 9:56 AM ELASTIC ATTACHER ZIGZAG POC BLOOD GAS AND CHEMISTRIES, ARTERIAL Routine 09/04/2024 9:55 AM ELASTIC ATTACHER ZIGZAG POCT ACTIVATED CLOTTING TIME, HIGH RANGE Routine 09/04/2024 9:54 AM ELASTIC ATTACHER ZIGZAG POC BLOOD GAS AND CHEMISTRIES, ARTERIAL Routine 09/04/2024 9:19 AM ELASTIC ATTACHER ZIGZAG POCT ACTIVATED CLOTTING TIME, HIGH RANGE Routine 09/04/2024 9:18 AM ELASTIC ATTACHER ZIGZAG ANESTHESIA CENTRAL VENOUS LINE PLACEMENT Routine 09/04/2024 9:15 AM ELASTIC ATTACHER ZIGZAG ANESTHESIA CENTRAL VENOUS LINE PLACEMENT Routine 09/04/2024 9:15 AM ELASTIC ATTACHER ZIGZAG CA AN ELECTIVE ENDOTRACHEAL AIRWAY Routine 09/04/2024 9:14 AM ELASTIC ATTACHER ZIGZAG ANESTHESIA ARTERIAL LINE PLACEMENT Routine 09/04/2024 9:13 AM ELASTIC ATTACHER ZIGZAG POCT ACTIVATED CLOTTING TIME, HIGH RANGE Routine 09/04/2024 8:53 AM ELASTIC ATTACHER ZIGZAG ANESTHESIA SCOTTY Routine 09/04/2024 8:28 AM ELASTIC ATTACHER ZIGZAG POC BLOOD GAS AND CHEMISTRIES, ARTERIAL Routine 09/04/2024 8:21 AM ELASTIC ATTACHER ZIGZAG POCT ACTIVATED CLOTTING TIME, HIGH RANGE Routine 09/04/2024 8:18 AM ELASTIC ATTACHER ZIGZAG REPLACEMENT AORTIC VALVE 09/04/2024 7:35 AM ELASTIC ATTACHER ZIGZAG Aortic valve stenosis, etiology of cardiac valve disease unspecified B CHECK SAMPLE STAT 09/04/2024 6:51 AM ELASTIC ATTACHER ZIGZAG POCT HCG, URINE Routine 09/04/2024 6:30 AM ELASTIC ATTACHER ZIGZAG PREPARE RBC STAT 09/04/2024 5:35 AM ELASTIC ATTACHER ZIGZAG ECG 12-LEAD Routine 08/24/2024 9:48 AM ELASTIC ATTACHER ZIGZAG Aortic valve stenosis, etiology of cardiac valve disease unspecified XR CHEST PA LATERAL 2 VIEWS Schedule Routine, Read Routine (OP Routine) 08/24/2024 9:27 AM ELASTIC ATTACHER ZIGZAG Aortic valve stenosis, etiology of cardiac valve disease unspecified EGFR Routine 08/24/2024 9:25 AM ELASTIC ATTACHER ZIGZAG Aortic valve stenosis, etiology of cardiac valve disease unspecified BASIC METABOLIC PANEL Routine 08/24/2024 9:25 AM ELASTIC ATTACHER ZIGZAG Aortic valve stenosis, etiology of cardiac valve disease unspecified PROTIME-INR Routine 08/24/2024 9:25 AM ELASTIC ATTACHER ZIGZAG Aortic valve stenosis, etiology of cardiac valve disease unspecified APTT Routine 08/24/2024 9:25 AM ELASTIC ATTACHER ZIGZAG Aortic valve stenosis, etiology of cardiac valve disease unspecified CBC WITHOUT DIFFERENTIAL Routine 08/24/2024 9:25 AM ELASTIC ATTACHER ZIGZAG Aortic valve stenosis, etiology of cardiac valve disease unspecified TYPE AND SCREEN Routine 08/24/2024 9:25 AM ELASTIC ATTACHER ZIGZAG Aortic valve stenosis, etiology of cardiac valve disease unspecified URINALYSIS AND REFLEX TO MICROSCOPIC AND CULTURE Routine 08/24/2024 9:25 AM ELASTIC ATTACHER ZIGZAG Aortic valve stenosis, etiology of cardiac valve disease unspecified from Last 3 Months Results * (ABNORMAL) Protime-INR (10/31/2024 6:06 AM CDT) INR 3.4(H) [facility] Comment: Reference Range 0.9-1.1 Moderate-intensity Warfarin Therapy 2.0-3.0 Higher-intensity Warfarin Therapy 3.0-4.0 PT 33.8(H) 9.0 - 11.5 sec [facility] Comment: For additional information, please refer to [email or web address]/[email or web address] (This link is being provided for informational/ educational purposes only.) Blood 10/31/2024 6:06 AM CDT 10/31/2024 6:06 AM CDT Leeann Odom [employer] LAB BLOOD ORDERABLES Chloé l Result Performing Organization Address [facility] Hospital/[facility] Co de Phone Number [facility] [address] [place] [address] * (ABNORMAL) Protime-INR (10/03/2024 6:38 AM ELASTIC ATTACHER ZIGZAG) INR 3.2(H) [facility] Comment: Reference Range 0.9-1.1 Moderate-intensity Warfarin Therapy 2.0-3.0 Higher-intensity Warfarin Therapy 3.0-4.0 PT 32.0(H) 9.0 - 11.5 sec [facility] Comment: For additional information, please refer to [email or web address][facility]/faq/RID766 (This link is being provided for informational/ educational purposes only.) Blood 10/03/2024 6:38 AM ELASTIC ATTACHER ZIGZAG 10/03/2024 6:39 AM ELASTIC ATTACHER ZIGZAG Leeann Odom LABOR EMPLOYMENT ASSOCIATE LAB BLOOD ORDERABLES Chloé l Result Performing Organization Address City/[facility]/ZIP Co de Phone Number [facility] [address] [place] [address] * POCT PT/INR (09/26/2024 8:41 AM ELASTIC ATTACHER ZIGZAG) INR, POC 3.30 HH [facility] Comment:repeat INR on 10/03 at [facility] [place] Blood 09/26/2024 8:41 AM ELASTIC ATTACHER ZIGZAG Cynthia Haley NP POINT OF CARE TEST ORDERAB LES Final Result [facility] * POCT PT/INR (09/21/2024 10:24 AM ELASTIC ATTACHER ZIGZAG) INR, POC 3.80 HH [facility]ULT[facility] LAB[facility]AT[facility] Blood 09/21/2024 10:2 4 AM ELASTIC ATTACHER ZIGZAG Talya Boucher MD POINT OF CARE TEST ORDERABLES Final Result Performing Organization Address City/[facility]/ZIP Co de Phone Number [facility] * POCT PT/INR (09/18/2024 9:04 AM ELASTIC ATTACHER ZIGZAG) INR, POC 3.10 HH [facility] RESULT[facility] LAB[facility]AT[facility] Blood 09/18/2024 9:04 AM ELASTIC ATTACHER ZIGZAG Cynthia Haley NP POINT OF CARE TEST ORDERAB LES Final Result Performing Organization Address City/[facility]/ZIP Co de Phone Number [facility] * POCT PT/INR (09/14/2024 11:31 AM ELASTIC ATTACHER ZIGZAG) INR, POC 1.80 HH PO[facility] RESULTING LABORATORY Blood 09/14/2024 11:3 1 AM ELASTIC ATTACHER ZIGZAG Cynthia Haley NP POINT OF CARE TEST ORDERAB LES Final Result Performing Organization Address City/[facility]/ZIP Co de Phone Number [facility] * eGFR (09/14/2024 11:10 AM ELASTIC ATTACHER ZIGZAG) eGFR 70 >=60 mL/min/1. 73 m2 Comment: [...] reviewed 2021. Blood 09/14/2024 11:1 0 AM ELASTIC ATTACHER ZIGZAG 09/14/2024 4:43 PM ELASTIC ATTACHER ZIGZAG us Cynthia Haley LABOR EMPLOYMENT ASSOCIATE LAB BLOOD ORDERABLES Final Result [facility] [place] [address] * Differential, auto (09/14/2024 11:10 AM ELASTIC ATTACHER ZIGZAG) Pathologist [facility] Neutrophil abs 6.4 1.5 - 6.5 K/cumm Imm gran abs 0.1 0.0 - 0.1 K/cumm [facility] Lymphocyte abs 1.8 0.8 - 3.3 K/cumm [facility] Monocyte abs 0.6 0.2 - 0.8 K/cumm [facility] Eosinophil abs 0.0 0.0 - 0.5 K/cumm [facility] Basophil abs 0.1 0.0 - 0.1 K/cumm [facility] Neutrophil pct 71.4 % [facility] Comment: Interpretive Data Percent cell count reference ranges are not reported, since discordance with absolute values may lead to misinterpretation of CBC data. Current Interpretive Data was last revised on 2017. Imm gran pct 0.8 % [facility] Comment: Interpretive Data Percent cell count reference ranges are not reported, since discordance with absolute values may lead to misinterpretation of CBC data. Current Interpretive Data was last revised on 2017. Lymphocyte pct 19.7 % [facility] Comment: Interpretive Data Percent cell count reference ranges are not reported, since discordance with absolute values may lead to misinterpretation of CBC data. Current Interpretive Data was last revised on 2017. Monocyte pct 7.2 % [facility] Comment: Interpretive Data Percent cell count reference ranges are not reported, since discordance with absolute values may lead to misinterpretation of CBC data. Current Interpretive Data was last revised on 2017. Eosinophil pct 0.2 % [facility] Comment: Interpretive Data Percent cell count reference ranges are not reported, since discordance with absolute values may lead to misinterpretation of CBC data. Current Interpretive Data was last revised on 2017. Basophil pct 0.7 % [facility] Comment: Interpretive Data Percent cell count reference ranges are not reported, since discordance with absolute values may lead to misinterpretation of CBC data. Current Interpretive Data was last revised on 2017. Blood 09/14/2024 11:1 0 AM ELASTIC ATTACHER ZIGZAG 09/14/2024 4:20 PM ELASTIC ATTACHER ZIGZAG us Cynthia Haley LABOR EMPLOYMENT ASSOCIATE LAB BLOOD ORDERABLES Final Result Performing Organization Address City/State/[facility] Co de Phone Number [facility] [place] [address] * CBC with auto differential (09/14/2024 11:10 AM ELASTIC ATTACHER ZIGZAG) WBC 8.9 3.8 - 9.9 K/cumm Hgb 11.9 11.9 - 15.5 g/dL [facility] Hct 35.8 35.6 - 45.5 % [facility] Plt 393 150 - 400 K/cumm [facility] MPV 10.3 9.1 - 12.3 fL [facility] RBC 4.13 3.90 - 5.20 M/cumm [facility] MCV 86.7 81.3 - 96.4 fL [facility] MCH 28.8 27.1 - 33.3 pg [facility] MCHC 33.2 32.3 - 35.7 g/dL [facility] RDW CV 12.7 11.1 - 14.9 % [facility] RDW SD 39.7 35.7 - 48.1 fL [facility] NRBC abs 0.00 0.00 - 0.01 K/cumm [facility] Blood 09/14/2024 11:1 0 AM ELASTIC ATTACHER ZIGZAG 09/14/2024 4:20 PM ELASTIC ATTACHER ZIGZAG us Cynthia Haley NP LAB BLOOD ORDERABLES Final Result [facility] [place] [address] * Comprehensive metabolic panel (09/14/2024 11:10 AM ELASTIC ATTACHER ZIGZAG) Sodium 140 135 - 145 mmol/L Potassium, pl 3.7 3.3 - 4.9 mmol/L [facility] Chloride 101 97 - 110 mmol/L [facility] CO2 28 22 - 32 mmol/L [facility] Anion gap 11 2 - 15 mmol/L [facility] BUN 14 6 - 25 mg/dL [facility] Creatinine 0.96 0.60 - 1.10 mg/dL [facility] Glucose 77 70 - 199 mg/dL [facility] Comment: Interpretive Data Fasting glucose >/= 126 [...] 2022. Calcium 9.0 8.5 - 10.3 mg/dL [facility] Bilirubin, total 0.2 0.1 - 1.2 mg/dL [facility] Protein, pl 6.8 6.5 - 8.5 g/dL [facility] Albumin 3.6 3.5 - 5.0 g/dL [facility] Alk phos 127 40 - 130 Units/L [facility] ALT 22 7 - 45 Units/L [facility] AST 20 10 - 45 Units/L [facility] Blood 09/14/2024 11:1 0 AM ELASTIC ATTACHER ZIGZAG 09/14/2024 4:20 PM ELASTIC ATTACHER ZIGZAG us Cynthia Haley LABOR EMPLOYMENT ASSOCIATE LAB BLOOD ORDERABLES Final Result [facility] [place] [address] * XR Shoulder Left 2 or More Views (09/13/2024 4:37 PM ELASTIC ATTACHER ZIGZAG) Anatomical Region Laterality Modality Upper Extremities, Shoulder Left Digi skylar Radiography 09/17/2024 12:0 3 AM ELASTIC ATTACHER ZIGZAG Narrative 09/17/2024 12:23 AM ELASTIC ATTACHER ZIGZAG EXAM DESCRIPTION: XR SHOULDER LEFT 2 OR [...] Desi Rand M.D. SN T: Report ID: [id number] Reading Location: [id number] Procedure Note Desi Rand MD - 09/17/2024 [...] Desi Rand M.D. SN T: Report ID: [id number] Reading Location: [id number] Cynthia Haley LABOR EMPLOYMENT ASSOCIATE IMG XR PROCEDURES Final Re sult * X-ray chest 2 views (09/13/2024 4:28 PM ELASTIC ATTACHER ZIGZAG) Anatomical Region Laterality Modality Body, Chest N/A Digital Radiogra phy 09/17/2024 12:0 0 AM ELASTIC ATTACHER ZIGZAG Narrative 09/17/2024 12:01 AM ELASTIC ATTACHER ZIGZAG EXAM DESCRIPTION: XR CHEST PA LATERAL 2 [...] Desi Rand M.D. SN T: Report ID: [id number] Reading Location: [id number] Procedure Note Desi Rand MD - 09/17/2024 [...] Desi Rand M.D. SN T: Report ID: [id number] Reading Location: [id number] Cynthia Haley LABOR EMPLOYMENT ASSOCIATE IMG XR PROCEDURES Final Re sult * POCT PT/INR (09/11/2024 11:59 AM ELASTIC ATTACHER ZIGZAG) INR, POC 1.60 HH POCT RESULTING LABORATORY Comment:PT TAKING ORDERED IN EVENING Blood 09/11/2024 11:5 9 AM ELASTIC ATTACHER ZIGZAG Cynthia [place] Tera LABOR EMPLOYMENT ASSOCIATE POINT OF CARE TEST ORDERAB LES Final Result HH POCT RESULTING LABORATORY * TRANSTHORACIC ECHO (TTE) COMPLETE W DOPPLER/CF WO CONTRAST (09/08/2024 5:45 PM ELASTIC ATTACHER ZIGZAG) LV EF % CONS SCIMAGE Anatomical Region Laterality Modality Ultrasound 09/08/2024 12:5 4 PM ELASTIC ATTACHER ZIGZAG Narrative 09/08/2024 4:21 [place] [address] Echocardiogram Report Patient Name: ZURI ACEVES SUE : 1970 Study Date: 09/08/2024 12:54:21 PM Gender: F Tech: IN Location: [id number] Ref Provider: TALYA BOUCHER Height(Cm): 163 BSA: 2.22 Weight(Kg): 109 Heart Rate: 84 BP: 147 / 98 Quality: Good Order Provider: TALYA BOUCHER PROCEDURES: Echocardiographic Report: Transthoracic echocardiogram with [...] regurgitation. Electronically Signed By: Dr. Matilda Guo [facility] 09/08/2024 4:19:47 PM ELASTIC ATTACHER ZIGZAG Procedure Note Matilda Guo MD - 09/08/2024 [place] [address] Echocardiogram Report Patient Name: ZURI ACEVES SUE : 1970 Study Date: 09/08/2024 12:54:21 PM Gender: F Tech: IN Location: [id number] Ref Provider: TALYA BOUCHER Height(Cm): 163 BSA: 2.22 Weight(Kg): 109 Heart Rate: 84 BP: 147 / 98 Quality: Good Order Provider: TALYA BOUCHER PROCEDURES: Echocardiographic Report: Transthoracic echocardiogram with [...] regurgitation. Electronically Signed By: Dr. Matilda Guo [facility] 09/08/2024 4:19:47 PM ELASTIC ATTACHER ZIGZAG us Talya Boucher MD CV ECHO PROCEDURES Final Resul t * XR Chest 1 View - Portable - in AM (09/08/2024 6:17 AM ELASTIC ATTACHER ZIGZAG) Anatomical Region Laterality Modality Body, Chest N/A Computed Radiogr aphy 09/08/2024 7:25 AM ELASTIC ATTACHER ZIGZAG Impressions 09/08/2024 7:25 AM ELASTIC ATTACHER ZIGZAG No change from previous. Electronically signed by: Audie Logan 09/08/2024 7:25 AM ELASTIC ATTACHER ZIGZAG EXAM: XR CHEST 1 VIEW DATE: 09/08/2024 [...] previous. Electronically signed by: Gabriel Minaya M.D. Talya Boucher MD IMG XR PROCEDURES Final Result * eGFR (09/08/2024 4:43 AM ELASTIC ATTACHER ZIGZAG) eGFR 85 >=60 mL/min/1. 73 m2 Comment: [...] last reviewed 2021. Blood 09/08/2024 4:43 AM ELASTIC ATTACHER ZIGZAG 09/08/2024 4:43 AM ELASTIC ATTACHER ZIGZAG Joey Oconnor NP LAB BLOOD ORDERABLES Final Result [facility] [address] Department [place] [address] * (ABNORMAL) Protime-INR (09/08/2024 4:43 AM ELASTIC ATTACHER ZIGZAG) PT 46.1(H) 9.7 - 13.0 sec INR 4.15(H) 0.90 - 1.20 NICO[facility] Comment: Interpretive data Oral anticoagulant therapeutic ranges: Venous thromboembolism prophylaxis or treatment: 2.0-3.0 CARDIOLOGY Standard range: 2.0-3.0 High-intensity range: 2.5-3.5 Refer to indication-specific guidelines for appropriate target ranges for prosthetic heart valve replacement. Current interpretive data was last revised on 2019. Blood 09/08/2024 4:43 AM ELASTIC ATTACHER ZIGZAG 09/08/2024 4:43 AM ELASTIC ATTACHER ZIGZAG Joey Oconnor LABOR EMPLOYMENT ASSOCIATE LAB BLOOD ORDERABLES Final Result Performing Organization Address [facility]/ZIP Co de Phone Number NICOLE [address] [address] * (ABNORMAL) CBC without differential (09/08/2024 4:43 AM ELASTIC ATTACHER ZIGZAG) [facility] WBC 6.1 3.8 - 9.9 K/cumm Hgb 10.8(L) 11.9 - 15.5 g/dL [facility] Hct 33.2(L) 35.6 - 45.5 % [facility] Plt 166 150 - 400 K/cumm [facility] MPV 10.7 9.1 - 12.3 fL [facility] RBC 3.82(L) 3.90 - 5.20 M/cumm [facility] MCV 86.9 81.3 - 96.4 fL [facility] MCH 28.3 27.1 - 33.3 pg [facility] MCHC 32.5 32.3 - 35.7 g/dL [facility] RDW CV 12.4 11.1 - 14.9 % [facility] RDW SD 39.3 35.7 - 48.1 fL [facility] NRBC abs 0.00 0.00 - 0.01 K/cumm [facility] Blood 09/08/2024 4:43 AM ELASTIC ATTACHER ZIGZAG 09/08/2024 4:43 AM ELASTIC ATTACHER ZIGZAG Joey Oconnor NP LAB BLOOD ORDERABLES Final Result Performing Organization Address [facility]/ZIP Co de Phone Number [facility] [address] [address] [place] [address] * Basic metabolic panel (09/08/2024 4:43 AM ELASTIC ATTACHER ZIGZAG) Sodium 141 135 - 145 mmol/L Potassium, pl 3.4 3.3 - 4.9 mmol/L [facility] Chloride 106 97 - 110 mmol/L [facility] CO2 25 22 - 32 mmol/L [facility] Anion gap 10 2 - 15 mmol/L [facility] BUN 17 6 - 25 mg/dL [facility] Creatinine 0.82 0.60 - 1.10 mg/dL [facility] Glucose 91 70 - 199 mg/dL [facility] Comment: Interpretive Data Fasting glucose >/= 126 [...] 2022. Calcium 8.5 8.5 - 10.3 mg/dL [facility] Blood 09/08/2024 4:43 AM ELASTIC ATTACHER ZIGZAG 09/08/2024 4:43 AM ELASTIC ATTACHER ZIGZAG us Joey Oconnor NP LAB BLOOD ORDERABLES Final Result [facility] [address] [address] Department of Laboratories [place], [place] [id number] * XR Chest 1 View - Portable - in AM (09/07/2024 5:30 AM ELASTIC ATTACHER ZIGZAG) Anatomical Region Laterality Modality Body, Chest N/A Computed Radiogr aphy 09/07/2024 8:13 AM ELASTIC ATTACHER ZIGZAG Impressions 09/07/2024 8:13 AM ELASTIC ATTACHER ZIGZAG No failure or pneumothorax. Atelectasis left base. Electronically signed by: Dick Renteria M.D. Narrative 09/07/2024 8:13 AM ELASTIC ATTACHER ZIGZAG EXAMINATION: XR CHEST 1 VIEW DATE: 09/07/2024 [...] base. Electronically signed by: Dick Renteria M.D. Talya Boucher MD IMG XR PROCEDURES Final Result * eGFR (09/07/2024 4:49 AM ELASTIC ATTACHER ZIGZAG) eGFR 84 >=60 mL/min/1. 73 m2 Comment: [...] last reviewed 2021. Blood 09/07/2024 4:49 AM ELASTIC ATTACHER ZIGZAG 09/07/2024 5:16 AM ELASTIC ATTACHER ZIGZAG us Joey Oconnor LABOR EMPLOYMENT ASSOCIATE LAB BLOOD ORDERABLES Final Result Performing Organization Address [facility] de Phone Number NICOLE RAM[facility] [address] [facility] [employer] [place], [place] [id number] * (ABNORMAL) Protime-INR (09/07/2024 4:49 AM ELASTIC ATTACHER ZIGZAG) Pathologist [facility] PT 36.1(H) 9.7 - 13.0 sec INR 3.26(H) 0.90 - 1.20 [facility] Comment: Interpretive data Oral anticoagulant therapeutic ranges: Venous thromboembolism prophylaxis or treatment: 2.0-3.0 CARDIOLOGY Standard range: 2.0-3.0 High-intensity range: 2.5-3.5 Refer to indication-specific guidelines for appropriate target ranges for prosthetic heart valve replacement. Current interpretive data was last revised on 2019. Blood 09/07/2024 4:49 AM ELASTIC ATTACHER ZIGZAG 09/07/2024 5:17 AM ELASTIC ATTACHER ZIGZAG Joey Oconnor LABOR EMPLOYMENT ASSOCIATE LAB BLOOD ORDERABLES Final Result Performing Organization Address [facility] de Phone Number NICOLE RAMOS [address] [address] [facility] [place] [address] * (ABNORMAL) CBC without differential (09/07/2024 4:49 AM ELASTIC ATTACHER ZIGZAG) Pathologist [facility] WBC 8.6 3.8 - 9.9 K/cumm Hgb 11.3(L) 11.9 - 15.5 g/dL [facility] Hct 35.2(L) 35.6 - 45.5 % [facility] Plt 116(L) 150 - 400 K/cumm [facility] Comment:No clot detected in sample. MPV 10.9 9.1 - 12.3 fL [facility] RBC 3.99 3.90 - 5.20 M/cumm [facility] MCV 88.2 81.3 - 96.4 fL [facility] MCH 28.3 27.1 - 33.3 pg [facility] MCHC 32.1(L) 32.3 - 35.7 g/dL [facility] RDW CV 12.5 11.1 - 14.9 % [facility] RDW SD 40.1 35.7 - 48.1 fL [facility] NRBC abs 0.00 0.00 - 0.01 K/cumm [facility] Blood 09/07/2024 4:49 AM ELASTIC ATTACHER ZIGZAG 09/07/2024 5:17 AM ELASTIC ATTACHER ZIGZAG Joey Oconnor LABOR EMPLOYMENT ASSOCIATE LAB BLOOD ORDERABLES Final Result Performing Organization Address [facility] de Phone Number NICOLE [address] [place] [address] * Basic metabolic panel (09/07/2024 4:49 AM ELASTIC ATTACHER ZIGZAG) Pathologist [facility] Sodium 139 135 - 145 mmol/L Potassium, pl 3.8 3.3 - 4.9 mmol/L [facility] Chloride 105 97 - 110 mmol/L [facility] CO2 25 22 - 32 mmol/L [facility] Anion gap 9 2 - 15 mmol/L [facility] BUN 18 6 - 25 mg/dL [facility] Creatinine 0.83 0.60 - 1.10 mg/dL [facility] Glucose 104 70 - 199 mg/dL [facility] Comment: [...] 2022. Calcium 8.8 8.5 - 10.3 mg/dL [facility] Blood 09/07/2024 4:49 AM ELASTIC ATTACHER ZIGZAG 09/07/2024 5:16 AM ELASTIC ATTACHER ZIGZAG Joey Oconnor LABOR EMPLOYMENT ASSOCIATE LAB BLOOD ORDERABLES Final Result Performing Organization Address [facility] Co de Phone Number NICOLE [address] [address] [place] [address] * (ABNORMAL) aPTT (09/06/2024 2:10 PM ELASTIC ATTACHER ZIGZAG) aPTT 26(L) 28 - 38 sec Comment: Interpretive Data Heparin therapeutic range: 66.0 - 100.0 seconds. Range based on correlation with therapeutic heparin activity range of 0.3 - 0.7 Units/mL. Current interpretive data was last revised on 2023. Blood 09/06/2024 2:10 PM ELASTIC ATTACHER ZIGZAG 09/06/2024 2:17 PM ELASTIC ATTACHER ZIGZAG Narrative NICOLE - 09/06/2024 2:32 PM ELASTIC ATTACHER ZIGZAG Baseline prior to enoxaparin initiation. Joey Oconnor NP LAB BLOOD ORDERABLES Final Result Performing Organization Address [facility] Co de Phone Number NICOLE [address] [employer] [place], [place] [phone] * (ABNORMAL) Protime-INR (09/06/2024 2:10 PM ELASTIC ATTACHER ZIGZAG) PT 18.5(H) 9.7 - 13.0 sec INR 1.69(H) 0.90 - 1.20 NICOLE Comment: Interpretive data Oral anticoagulant therapeutic ranges: Venous thromboembolism prophylaxis or treatment: 2.0-3.0 CARDIOLOGY Standard range: 2.0-3.0 High-intensity range: 2.5-3.5 Refer to indication-specific guidelines for appropriate target ranges for prosthetic heart valve replacement. Current interpretive data was last revised on 2019. Blood 09/06/2024 2:10 PM ELASTIC ATTACHER ZIGZAG 09/06/2024 2:17 PM ELASTIC ATTACHER ZIGZAG Joey Oconnor NP LAB BLOOD ORDERABLES Final Result Performing Organization Address [facility] Co de Phone Number NICOLE [address] [address] [facility] [address] [place], [place] [phone] * Calcium, ionized, whole blood (09/06/2024 12:52 PM ELASTIC ATTACHER ZIGZAG) Ca, ionized, bld 4.86 4.50 - 5.10 mg/dL Blood 09/06/2024 12:5 2 PM ELASTIC ATTACHER ZIGZAG 09/06/2024 1:06 PM ELASTIC ATTACHER ZIGZAG Zoe Chun Niranjan LABOR EMPLOYMENT ASSOCIATE LAB BLOOD ORDERABLES F inal Result Performing Organization Address City/[facility]/ZIP Co de Phone Number NICOLE RAMOS [address] [address] [place] [address] * eGFR (09/06/2024 12:52 PM ELASTIC ATTACHER ZIGZAG) eGFR 89 >=60 mL/min/1. 73 m2 Comment: [...] reviewed 2021. Blood 09/06/2024 12:5 2 PM ELASTIC ATTACHER ZIGZAG 09/06/2024 1:09 PM ELASTIC ATTACHER ZIGZAG Zoe Ureña LABOR EMPLOYMENT ASSOCIATE LAB BLOOD ORDERABLES F inal Result NICOLE RAMOS [address] [address] [facility] [address] [place] [address] * Magnesium (09/06/2024 12:52 PM ELASTIC ATTACHER ZIGZAG) Magnesium 2.0 1.4 - 2.5 mg/dL Blood 09/06/2024 12:5 2 PM ELASTIC ATTACHER ZIGZAG 09/06/2024 1:06 PM ELASTIC ATTACHER ZIGZAG Zoe Ureña LABOR EMPLOYMENT ASSOCIATE LAB BLOOD ORDERABLES F inal Result Performing Organization Address City/[facility]/ZIP Co de Phone Number NICOLE RAMOS [address] [address] [place] [address] * (ABNORMAL) Renal function panel (09/06/2024 12:52 PM ELASTIC ATTACHER ZIGZAG) [facility] Sodium 140 135 - 145 mmol/L Potassium, pl 4.0 3.3 - 4.9 mmol/L [facility] Chloride 107 97 - 110 mmol/L [facility] CO2 27 22 - 32 mmol/L [facility] Anion gap 6 2 - 15 mmol/L [facility] BUN 17 6 - 25 mg/dL [facility] Creatinine 0.79 0.60 - 1.10 mg/dL [facility] Glucose 105 70 - 199 mg/dL [facility] Comment: Interpretive Data Fasting glucose >/= 126 [...] 2022. Calcium 8.6 8.5 - 10.3 mg/dL [facility] Phosphorus, pl 2.4 2.3 - 4.5 mg/dL [facility] Albumin 3.4(L) 3.5 - 5.0 g/dL [facility] Blood 09/06/2024 12:5 2 PM ELASTIC ATTACHER ZIGZAG 09/06/2024 1:06 PM ELASTIC ATTACHER ZIGZAG Zoe Ureña LABOR EMPLOYMENT ASSOCIATE LAB BLOOD ORDERABLES F inal Result Performing Organization Address City/[facility]/ZIP Co de Phone Number NICOLE RAMOS [address] [address] Department [address] [place] [address] * POCT glucose (09/06/2024 11:55 AM ELASTIC ATTACHER ZIGZAG) Glucose, POC 101 70 - 199 mg/dL Blood 09/06/2024 11:5 5 AM ELASTIC ATTACHER ZIGZAG 09/06/2024 11:55 AM ELASTIC ATTACHER ZIGZAG Talya Boucher MD LAB POCT ORDERABLES - DEVICE F inal Result Performing Organization Address [facility] [place] [address] [address] [place] [address] * POCT glucose (09/06/2024 7:33 AM ELASTIC ATTACHER ZIGZAG) Glucose, POC 106 70 - 199 mg/dL Blood 09/06/2024 7:33 AM ELASTIC ATTACHER ZIGZAG 09/06/2024 7:33 AM ELASTIC ATTACHER ZIGZAG Talya Boucher MD LAB POCT ORDERABLES - DEVICE F inal Result Performing Organization Address [facility] [place] [address] [address] [facility] [place] [place] [address] * Critical Care (09/06/2024 7:00 AM ELASTIC ATTACHER ZIGZAG) Narrative Lenin Huff MD - 09/06/2024 7:00 AM ELASTIC ATTACHER ZIGZAG Zoe Ureña NP 09/06/2024 3:56 PM Critical [...] plan with the ICU team and other medical/licensed tax consultant staff, making frequent assessments and decisions [...] from bedside monitors, laboratory results, and imaging us Zoe Ureña LABOR EMPLOYMENT ASSOCIATE IN CLINIC/BEDSIDE MARITZAEdy LISA Final Result * XR Chest 1 View - Portable - in AM (09/06/2024 5:34 AM ELASTIC ATTACHER ZIGZAG) Anatomical Region Laterality Modality Body, Chest N/A Computed Radiogr aphy 09/06/2024 8:19 AM ELASTIC ATTACHER ZIGZAG Impressions 09/06/2024 8:19 AM ELASTIC ATTACHER ZIGZAG Improvement. Some residual atelectasis fluid left base. Electronically signed by: Dick Renteria M.D. Narrative 09/06/2024 8:19 AM ELASTIC ATTACHER ZIGZAG EXAMINATION: XR CHEST 1 VIEW DATE: 09/06/2024 [...] base. Electronically signed by: Dick Renteria M.D. us Talya Boucher MD IMG XR PROCEDURES Final Result * eGFR (09/06/2024 3:28 AM ELASTIC ATTACHER ZIGZAG) Pathologist [facility] eGFR >90 >=60 mL/min/1. 73 m2 Comment: [...] last reviewed 2021. Blood 09/06/2024 3:28 AM ELASTIC ATTACHER ZIGZAG 09/06/2024 3:40 AM ELASTIC ATTACHER ZIGZAG us Talya Boucher MD LAB BLOOD ORDERABLES Final Res ult [address] [id number] [address] [place] [address] * (ABNORMAL) CBC without differential (09/06/2024 3:28 AM ELASTIC ATT[employer]ER [employer]) Pathologist [facility] WBC 10.1(H) 3.8 - 9.9 K/cumm Hgb 10.9(L) 11.9 - 15.5 g/dL [facility] Hct 33.6(L) 35.6 - 45.5 % [facility] Plt 88(L) 150 - 400 K/cumm [facility] MPV 10.6 9.1 - 12.3 fL [facility] RBC 3.85(L) 3.90 - 5.20 M/cumm [facility] MCV 87.3 81.3 - 96.4 fL [facility] MCH 28.3 27.1 - 33.3 pg [facility] MCHC 32.4 32.3 - 35.7 g/dL [facility] RDW CV 12.6 11.1 - 14.9 % CERNER CH RDW SD 40.2 35.7 - 48.1 fL [facility] NRBC abs 0.00 0.00 - 0.01 K/cumm [facility] Blood 09/06/2024 3:28 AM ELASTIC ATTACHER ZIGZAG 09/06/2024 3:40 AM ELASTIC ATTACHER ZIGZAG Talya Boucher MD LAB BLOOD ORDERABLES Final Res ult Performing Organization Address City/[facility]/ZIP Co de Phone Number NICOLE RACHEL [address] [address] [facility] [employer] [place], [place] [id number] * Phosphorus (09/06/2024 3:28 AM ELASTIC ATTACHER ZIGZAG) Phosphorus, pl 2.5 2.3 - 4.5 mg/dL Blood 09/06/2024 3:28 AM ELASTIC ATTACHER ZIGZAG 09/06/2024 3:37 AM ELASTIC ATTACHER ZIGZAG Jessica Martinez LABOR EMPLOYMENT ASSOCIATE LAB BLOOD ORDERABLES Fin al Result Performing Organization Address [facility] Co de Phone Number FACUNDOJYOTI [address] [address] [place] [address] * Magnesium (09/06/2024 3:28 AM ELASTIC ATTACHER ZIGZAG) Magnesium 2.1 1.4 - 2.5 mg/dL Blood 09/06/2024 3:28 AM ELASTIC ATTACHER ZIGZAG 09/06/2024 3:37 AM ELASTIC ATTACHER ZIGZAG Talya Boucher MD LAB BLOOD ORDERABLES Final Res ult Performing Organization Address City/[facility]/ZIP Co de Phone Number NICOLE [address] [address] [place] [address] * Basic metabolic panel (09/06/2024 3:28 AM ELASTIC ATTACHER ZIGZAG) Sodium 140 135 - 145 mmol/L Potassium, pl 4.0 3.3 - 4.9 mmol/L [facility] Chloride 107 97 - 110 mmol/L [facility] CO2 24 22 - 32 mmol/L [facility] Anion gap 9 2 - 15 mmol/L [facility] BUN 14 6 - 25 mg/dL [facility] Creatinine 0.74 0.60 - 1.10 mg/dL [facility] Glucose 120 70 - 199 mg/dL [facility] Comment: Interpretive Data Fasting glucose >/= 126 [...] 2022. Calcium 8.5 8.5 - 10.3 mg/dL [facility] Blood 09/06/2024 3:28 AM ELASTIC ATTACHER ZIGZAG 09/06/2024 3:37 AM ELASTIC ATTACHER ZIGZAG Talya Boucher MD LAB BLOOD ORDERABLES Final Res ult Performing Organization Address [facility] Co de Phone Number [facility] [address] [address] [address] * POCT glucose (09/05/2024 9:00 PM ELASTIC ATTACHER ZIGZAG) [facility] Glucose, POC 120 70 - 199 mg/dL Blood 09/05/2024 9:00 PM ELASTIC ATTACHER ZIGZAG 09/05/2024 9:00 PM ELASTIC ATTACHER ZIGZAG Talya Boucher MD LAB POCT ORDERABLES - DEVICE F inal Result Performing Organization Address City/[facility] Co de Phone Number [facility] [address] [address] [place] [address] * POCT glucose (09/05/2024 5:08 PM ELASTIC ATTACHER ZIGZAG) Glucose, POC 126 70 - 199 mg/dL Blood 09/05/2024 5:08 PM ELASTIC ATTACHER ZIGZAG 09/05/2024 5:08 PM ELASTIC ATTACHER ZIGZAG Talya Boucher MD LAB POCT ORDERABLES - DEVICE F inal Result Performing Organization Address City/[facility]/ZIP Co de Phone Number NICOLE RAMOS [address] [address] Department [place] [place] [address] * eGFR (09/05/2024 3:29 PM ELASTIC ATTACHER ZIGZAG) eGFR >90 >=60 mL/min/1. 73 m2 Comment: [...] last reviewed 2021. Blood 09/05/2024 3:29 PM ELASTIC ATTACHER ZIGZAG 09/05/2024 3:30 PM ELASTIC ATTACHER ZIGZAG Talya Boucher MD LAB BLOOD ORDERABLES Final Res ult Performing Organization Address City/[facility]/ZIP Co de Phone Number NICOLE RAMOS [address] [address] Department [place] [place], [place] [phone] * (ABNORMAL) CBC without differential (09/05/2024 3:29 PM ELASTIC ATTACHER ZIGZAG) Pathologist [facility] WBC 12.7(H) 3.8 - 9.9 K/cumm Hgb 11.7(L) 11.9 - 15.5 g/dL [facility] Hct 35.3(L) 35.6 - 45.5 % [facility] Plt 95(L) 150 - 400 K/cumm [facility] MPV 11.2 9.1 - 12.3 fL CERNER RBC 4.05 3.90 - 5.20 M/cumm [facility] MCV 87.2 81.3 - 96.4 fL [facility] MCH 28.9 27.1 - 33.3 pg CERNER MCHC 33.1 32.3 - 35.7 g/dL [facility] CH RDW CV 12.8 11.1 - 14.9 % [facility] CH RDW SD 40.8 35.7 - 48.1 fL [facility] NRBC abs 0.00 0.00 - 0.01 K/cumm [facility] Blood 09/05/2024 3:29 PM ELASTIC ATTACHER ZIGZAG 09/05/2024 3:30 PM ELASTIC ATTACHER ZIGZAG Talya Boucher MD LAB BLOOD ORDERABLES Final Res ult Performing Organization Address [facility] de Phone Number [facility] [address] [address] [employer] [place], [place] [phone] * Magnesium (09/05/2024 3:29 PM ELASTIC ATTACHER ZIGZAG) Pathologist [facility] Magnesium 2.1 1.4 - 2.5 mg/dL Blood 09/05/2024 3:29 PM ELASTIC ATTACHER ZIGZAG 09/05/2024 3:30 PM ELASTIC ATTACHER ZIGZAG Talya Boucher MD LAB BLOOD ORDERABLES Final Res ult Performing Organization Address [facility] Co de Phone Number [facility] [address] [address] [facility] [place] [place], [place] [phone] * Basic metabolic panel (09/05/2024 3:29 PM ELASTIC ATTACHER ZIGZAG) Sodium 138 135 - 145 mmol/L Potassium, pl 4.0 3.3 - 4.9 mmol/L [facility] Chloride 105 97 - 110 mmol/L [facility] CO2 24 22 - 32 mmol/L [facility] Anion gap 9 2 - 15 mmol/L [facility] BUN 10 6 - 25 mg/dL [facility] Creatinine 0.76 0.60 - 1.10 mg/dL [facility] Glucose 140 70 - 199 mg/dL [facility] Comment: Interpretive Data Fasting glucose >/= 126 [...] 2022. Calcium 8.5 8.5 - 10.3 mg/dL [facility] Blood 09/05/2024 3:29 PM ELASTIC ATTACHER ZIGZAG 09/05/2024 3:30 PM ELASTIC ATTACHER ZIGZAG Talya Boucher MD LAB BLOOD ORDERABLES Final Res ult Performing Organization Address City/[facility]/ZIP Co de Phone Number [facility] [address] [place] [address] * Calcium, ionized, whole blood (09/05/2024 3:25 PM ELASTIC ATTACHER ZIGZAG) Ca, ionized, bld 4.65 4.50 - 5.10 mg/dL Blood 09/05/2024 3:25 PM ELASTIC ATTACHER ZIGZAG 09/05/2024 3:29 PM ELASTIC ATTACHER ZIGZAG Talya Boucher MD LAB BLOOD ORDERABLES Final Res ult [facility] [address] [address] [facility] [place] [place] [address] * POCT glucose (09/05/2024 12:46 PM ELASTIC ATTACHER ZIGZAG) Glucose, POC 134 70 - 199 mg/dL Blood 09/05/2024 12:4 6 PM ELASTIC ATTACHER ZIGZAG 09/05/2024 12:46 PM ELASTIC ATTACHER ZIGZAG Talya Boucher MD LAB POCT ORDERABLES - DEVICE F inal Result Performing Organization Address City/[facility] Co de Phone Number NICOLE [address] [address] Department of Laboratories [place] [phone] * ECG 12 lead (09/05/2024 8:41 AM ELASTIC ATTACHER ZIGZAG) 09/05/2024 8:4 1 AM ELASTIC ATTACHER ZIGZAG Narrative [facility] - 09/05/2024 11:12 AM ELASTIC ATTACHER ZIGZAG Vent Rate: 96 bpm RR Interval: 624 msec CA Interval: 135 msec QRS Duration: 83 msec QT Interval: 368 msec QTC Interval: 421 msec P-R-T [place]: 7 - 1 - 10 degrees IMPRESSION: SINUS RHYTHM POSSIBLE INFERIOR MYOCARDIAL INFARCTION , PROBABLY OLD [30 ms Q WAVE IN II/aVF] BORDERLINE ECG Electronically Signed By: Dr. Matilda Guo [facility] Talya Boucher MD ECG ORDERABLES Final Result Performing Organization Address [facility] Co de Phone Number [facility] * (ABNORMAL) CBC without differential (09/05/2024 7:51 AM ELASTIC ATTACHER ZIGZAG) WBC 11.7(H) 3.8 - 9.9 K/cumm Hgb 11.5(L) 11.9 - 15.5 g/dL [facility] Hct 35.4(L) 35.6 - 45.5 % C[facility]ER Plt 104(L) 150 - 400 K/cumm [facility] MPV 11.1 9.1 - 12.3 fL C[facility]ER RBC 4.03 3.90 - 5.20 M/cumm [facility] MCV 87.8 81.3 - 96.4 fL [facility] MCH 28.5 27.1 - 33.3 pg [facility]ER MCHC 32.5 32.3 - 35.7 g/dL [facility] CH RDW CV 12.8 11.1 - 14.9 % [facility] CH RDW SD 41.6 35.7 - 48.1 fL [facility] NRBC abs 0.00 0.00 - 0.01 K/cumm [facility] Blood 09/05/2024 7:51 AM ELASTIC ATTACHER ZIGZAG 09/05/2024 8:02 AM ELASTIC ATTACHER ZIGZAG Narrative [facility] - 09/05/2024 8:40 AM ELASTIC ATTACHER ZIGZAG Baseline prior to warfarin initiation. Talya Boucher MD LAB BLOOD ORDERABLES Final Res ult Performing Organization Address [facility] de Phone Number [facility] [address] [address] [place] [address] * (ABNORMAL) aPTT (09/05/2024 7:47 AM ELASTIC ATTACHER ZIGZAG) aPTT 27(L) 28 - 38 sec Comment: Interpretive Data Heparin therapeutic range: 66.0 - 100.0 seconds. Range based on correlation with therapeutic heparin activity range of 0.3 - 0.7 Units/mL. Current interpretive data was last revised on 2023. Blood 09/05/2024 7:47 AM ELASTIC ATTACHER ZIGZAG 09/05/2024 8:02 AM ELASTIC ATTACHER ZIGZAG Narrative [facility] - 09/05/2024 8:48 AM ELASTIC ATTACHER ZIGZAG Baseline prior to warfarin initiation. Talya Boucher MD LAB BLOOD ORDERABLES Final Res ult Performing Organization Address [facility] de Phone Number [facility] [address] [address] [facility] [place] [employer] [place] [address] * Protime-INR (09/05/2024 7:47 AM ELASTIC ATTACHER ZIGZAG) PT 11.2 9.7 - 13.0 sec INR 1.04 0.90 - 1.20 [facility] Comment: Interpretive data Oral anticoagulant therapeutic ranges: Venous thromboembolism prophylaxis or treatment: 2.0-3.0 CARDIOLOGY Standard range: 2.0-3.0 High-intensity range: 2.5-3.5 Refer to indication-specific guidelines for appropriate target ranges for prosthetic heart valve replacement. Current interpretive data was last revised on 2019. Blood 09/05/2024 7:47 AM ELASTIC ATTACHER ZIGZAG 09/05/2024 8:02 AM ELASTIC ATTACHER ZIGZAG Narrative [facility] - 09/05/2024 8:45 AM ELASTIC ATTACHER ZIGZAG Baseline prior to warfarin initiation. Talya Boucher MD LAB BLOOD ORDERABLES Final Res ult NICOLE [address] [address] [place] [address] * Critical Care (09/05/2024 7:05 AM ELASTIC ATTACHER ZIGZAG) Narrative Lenin Huff MD - 09/05/2024 7:05 AM ELASTIC ATTACHER ZIGZAG Jessica Martinez NP 09/05/2024 7:30 AM Critical [...] plan with the ICU team and other medical/licensed tax consultant staff, making frequent assessments and decisions [...] documenting in the medical record Jessica Martinez NP IN CLINIC/BEDSIDE ORDERA BLES Final Result * POCT glucose (09/05/2024 7:05 AM ELASTIC ATTACHER ZIGZAG) Glucose, POC 146 70 - 199 mg/dL Blood 09/05/2024 7:0 5 AM ELASTIC ATTACHER ZIGZAG 09/05/2024 7:05 AM ELASTIC ATTACHER ZIGZAG Talya Boucher MD LAB POCT ORDERABLES - DEVICE F inal Result NICOLE RAMOS [address] [address] [place] [address] * XR Chest 1 View - Portable - in AM (09/05/2024 5:47 AM ELASTIC ATTACHER ZIGZAG) Anatomical Region Laterality Modality Body, Chest N/A Computed Radiogr aphy 09/05/2024 8:37 AM ELASTIC ATTACHER ZIGZAG Impressions 09/05/2024 8:37 AM ELASTIC ATTACHER ZIGZAG Improvement in the left perihilar infiltrate. Residual fluid and atelectasis left base. Extubation.. Electronically signed by: Dick Renteria M.D. Narrative 09/05/2024 8:37 AM ELASTIC ATTACHER ZIGZAG EXAMINATION: XR CHEST 1 VIEW DATE: 09/05/2024 [...] Extubation.. Electronically signed by: Dick Renteria M.D. Talya Boucher MD IMG XR PROCEDURES Final Result * Oxyhemoglobin, pulmonary artery (09/05/2024 3:49 AM ELASTIC ATTACHER ZIGZAG) Oxyhemoglobin, PA 70.1 % Comment: Interpretive Data No reference range established. Current interpretive data was last revised 2019. Blood 09/05/2024 3:49 AM ELASTIC ATTACHER ZIGZAG 09/05/2024 4:00 AM ELASTIC ATTACHER ZIGZAG us Jessica Martinez LABOR EMPLOYMENT ASSOCIATE LAB BLOOD ORDERABLES Fin al Result Performing Organization Address [facility]/ZIP Co de Phone Number NICOLE RAMOS [address] [address] Department [place] [place] [address] * eGFR (09/05/2024 3:49 AM ELASTIC ATTACHER ZIGZAG) eGFR 80 >=60 mL/min/1. 73 m2 Comment: [...] last reviewed 2021. Blood 09/05/2024 3:49 AM ELASTIC ATTACHER ZIGZAG 09/05/2024 4:02 AM ELASTIC ATTACHER ZIGZAG us Talya Boucher MD LAB BLOOD ORDERABLES Final Res ult Performing Organization Address City/[facility]/[place] [address] [address] Department [place] [place], [place] [phone] * (ABNORMAL) Differential, auto (09/05/2024 3:49 AM ELASTIC ATTACHER ZIGZAG) Neutrophil abs 8.8(H) 1.5 - 6.5 K/cumm Imm gran abs 0.1 0.0 - 0.1 K/cumm [facility] Lymphocyte abs 1.0 0.8 - 3.3 K/cumm [facility] Monocyte abs 0.9(H) 0.2 - 0.8 K/cumm [facility] Eosinophil abs 0.0 0.0 - 0.5 K/cumm [facility] Basophil abs 0.0 0.0 - 0.1 K/cumm [facility] Neutrophil pct 81.4 % [facility] Comment: Interpretive Data Percent cell count reference ranges are not reported, since discordance with absolute values may lead to misinterpretation of CBC data. Current Interpretive Data was last revised on 2017. Imm gran pct 0.6 % [facility] Comment: Interpretive Data Percent cell count reference ranges are not reported, since discordance with absolute values may lead to misinterpretation of CBC data. Current Interpretive Data was last revised on 2017. Lymphocyte pct 9.2 % [facility] Comment: Interpretive Data Percent cell count reference ranges are not reported, since discordance with absolute values may lead to misinterpretation of CBC data. Current Interpretive Data was last revised on 2017. Monocyte pct 8.6 % [facility] Comment: Interpretive Data Percent cell count reference ranges are not reported, since discordance with absolute values may lead to misinterpretation of CBC data. Current Interpretive Data was last revised on 2017. Eosinophil pct 0.0 % [facility] Comment: Interpretive Data Percent cell count reference ranges are not reported, since discordance with absolute values may lead to misinterpretation of CBC data. Current Interpretive Data was last revised on 2017. Basophil pct 0.2 % [facility] Comment: Interpretive Data Percent cell count reference ranges are not reported, since discordance with absolute values may lead to misinterpretation of CBC data. Current Interpretive Data was last revised on 2017. Blood 09/05/2024 3:49 AM ELASTIC ATTACHER ZIGZAG 09/05/2024 4:02 AM ELASTIC ATTACHER ZIGZAG us Talya Boucher MD LAB BLOOD ORDERABLES Final Res ult NICOLE ARMOS [address] [place] [address] * (ABNORMAL) Thyroid Function Surveyor (09/05/2024 3:49 AM ELASTIC ATTACHER ZIGZAG) TSH 0.21(L) 0.30 - 4.20 mcIUnit/mL Blood 09/05/2024 3:49 AM ELASTIC ATTACHER ZIGZAG 09/05/2024 4:02 AM ELASTIC ATTACHER ZIGZAG Jessica Martinez NP LAB BLOOD ORDERABLES Fin al Result Performing Organization Address City/[facility]/ZIP Co de Phone Number [facility] [address] [address] [facility] [place] [place] [address] * (ABNORMAL) CBC with auto differential (09/05/2024 3:49 AM ELASTIC ATTACHER ZIGZAG) WBC 10.8(H) 3.8 - 9.9 K/cumm Hgb [...] K/cumm [facility] Blood 09/05/2024 3:49 AM ELASTIC ATTACHER ZIGZAG 09/05/2024 4:02 AM ELASTIC ATTACHER ZIGZAG Talya Boucher MD LAB BLOOD ORDERABLES Final Res ult [facility] [address] [address] [facility] [place] [place] [address] * T3, free (09/05/2024 3:49 AM ELASTIC ATTACHER ZIGZAG) Free T3 3.0 2.0 - 4.4 pg/mL Blood 09/05/2024 3:49 AM ELASTIC ATTACHER ZIGZAG 09/05/2024 4:02 AM ELASTIC ATTACHER ZIGZAG Narrative NICOLE - 09/05/2024 12:49 PM ELASTIC ATTACHER ZIGZAG This test was reflexed from a Free T4 result. Jessica Martinez LABOR EMPLOYMENT ASSOCIATE LAB BLOOD ORDERABLES Fin al Result Performing Organization Address City/State/[facility] Co de Phone Number NICOLE [address] [address] [facility] [place] [address] * T4, free (09/05/2024 3:49 AM ELASTIC ATTACHER ZIGZAG) Free T4 1.07 0.90 - 1.70 ng/dL Blood 09/05/2024 3:49 AM ELASTIC ATTACHER ZIGZAG 09/05/2024 4:02 AM ELASTIC ATTACHER ZIGZAG Jessica Martinez LABOR EMPLOYMENT ASSOCIATE LAB BLOOD ORDERABLES Fin al Result Performing Organization Address City/[facility] Co de Phone Number NICOLE [address] [address] [facility] [place] [employer] [place] [address] * Phosphorus (09/05/2024 3:49 AM ELASTIC ATTACHER ZIGZAG) Phosphorus, pl 4.0 2.3 - 4.5 mg/dL Blood 09/05/2024 3:49 AM ELASTIC ATTACHER ZIGZAG 09/05/2024 4:02 AM ELASTIC ATTACHER ZIGZAG Jessica Martinez LABOR EMPLOYMENT ASSOCIATE LAB BLOOD ORDERABLES Fin al Result Performing Organization Address City/[facility] Co de Phone Number [facility] [address] [address] [facility] [place] [address] * Magnesium (09/05/2024 3:49 AM ELASTIC ATTACHER ZIGZAG) Magnesium 2.3 1.4 - 2.5 mg/dL Blood 09/05/2024 3:49 AM ELASTIC ATTACHER ZIGZAG 09/05/2024 4:02 AM ELASTIC ATTACHER ZIGZAG Talya Boucher MD LAB BLOOD ORDERABLES Final Res ult Performing Organization Address [facility] Co de Phone Number NICOLE RAMOS [address] [address] [facility] [place] [address] * Hemoglobin A1c (09/05/2024 3:49 AM ELASTIC ATTACHER ZIGZAG) Hgb A1C 5.3 4.0 - 5.6 % Estimated Average Glucose 105 mg/dL NICOLE RAMOS Comment: The ADA recommends reporting an estimated Average Glucose (eAG) with all Hemoglobin A1c results using the equation derived from a study of 507 normal and diabetic adults. Minority populations were underrepresented and children were not included. (Diabetes Care 31:4810-9879, 2008). The eAG is not equivalent to a fasting glucose. Blood 09/05/2024 3:49 AM ELASTIC ATTACHER ZIGZAG 09/05/2024 4:02 AM ELASTIC ATTACHER ZIGZAG Jessica Martinez NP LAB BLOOD ORDERABLES Fin al Result Performing Organization Address [facility] de Phone Number [facility] RAMOS [address] [address] [facility] [place] [address] * Lipid panel (09/05/2024 3:49 AM ELASTIC ATTACHER ZIGZAG) Cholesterol 90 30 - 199 mg/dL Comment: [...] on 2018. HDL 41 >=40 mg/dL NICOLE Comment: Interpretive Data Ages < or = [...] 2018. LDL, calculated 31 <=129 mg/dL NICOLE Comment: Interpretive Data Ages < or = [...] NCEP Expert Panel. Circulation 2004;110:227 3. Yogesh Matson. JOEY Cardiol. 2020 November 29;5(5):540-548. doi: 10.1001/jamacardio.2020.0013 Current Interpretive Data was last revised on 2024. Non-HDL Cholesterol 49 mg/dL NICOLE Comment: Interpretive Data Ages < or = [...] last revised on 2018. Chol/HDL ratio 2 [facility] Blood 09/05/2024 3:49 AM ELASTIC ATTACHER ZIGZAG 09/05/2024 4:02 AM ELASTIC ATTACHER ZIGZAG Jessica Martinez NP LAB BLOOD ORDERABLES Fin al Result [facility] [address] [address] Department [place] [address] * (ABNORMAL) Basic metabolic panel (09/05/2024 3:49 AM ELASTIC ATTACHER ZIGZAG) Sodium 143 135 - 145 mmol/L Potassium, pl 4.8 3.3 - 4.9 mmol/L [facility] Chloride 111(H) 97 - 110 mmol/L [facility] CO2 22 22 - 32 mmol/L [facility] Anion gap 10 2 - 15 mmol/L [facility] BUN 12 6 - 25 mg/dL [facility] Creatinine 0.86 0.60 - 1.10 mg/dL [facility] Glucose 134 70 - 199 mg/dL [facility] Comment: Interpretive Data Fasting glucose >/= 126 [...] 2022. Calcium 8.3(L) 8.5 - 10.3 mg/dL NICOLE RAMOS Blood 09/05/2024 3:49 AM ELASTIC ATTACHER ZIGZAG 09/05/2024 4:02 AM ELASTIC ATTACHER ZIGZAG Talya Boucher MD LAB BLOOD ORDERABLES Final Res ult Performing Organization Address [facility] Co de Phone Number NICOLE RAMOS [address] [address] [place] [address] * POCT glucose (09/05/2024 2:19 AM ELASTIC ATTACHER ZIGZAG) Glucose, POC 132 70 - 199 mg/dL Blood 09/05/2024 2:19 AM ELASTIC ATTACHER ZIGZAG 09/05/2024 2:19 AM ELASTIC ATTACHER ZIGZAG Result [facility] Talya Boucher MD LAB POCT ORDERABLES - DEVICE F inal Result Performing Organization Address [facility] Co de Phone Number [facility] RAMOS [address] [address] [place] [address] * Critical Care (09/04/2024 11:38 PM ELASTIC ATTACHER ZIGZAG) Narrative Cullen Lezama MD - 09/04/2024 11:38 PM ELASTIC ATTACHER ZIGZAG Fito Nation PA 09/05/2024 2:57 AM Critical [...] plan with the ICU team and other medical/licensed tax consultant staff, making frequent assessments and decisions [...] spent time documenting in the medical record Fito BARRIOS IN CLINIC/BEDSIDE ORDERABLES Final Result * POCT glucose (09/04/2024 9:48 PM ELASTIC ATTACHER ZIGZAG) Glucose, POC 123 70 - 199 mg/dL Blood 09/04/2024 9:48 PM ELASTIC ATTACHER ZIGZAG 09/04/2024 9:48 PM ELASTIC ATTACHER ZIGZAG Talya Boucher MD LAB POCT ORDERABLES - DEVICE F inal Result Performing Organization Address [facility] Co de Phone Number [facility] [address] [address] [facility] [place] [address] * POCT glucose (09/04/2024 8:41 PM ELASTIC ATTACHER ZIGZAG) Glucose, POC 131 70 - 199 mg/dL Blood 09/04/2024 8:41 PM ELASTIC ATTACHER ZIGZAG 09/04/2024 8:41 PM ELASTIC ATTACHER ZIGZAG Result [facility] Talya Boucher MD LAB POCT ORDERABLES - DEVICE F inal Result Performing Organization Address [facility] Co de Phone Number [facility] [address] [address] [facility] [place] [place] [address] * POCT glucose (09/04/2024 7:16 PM ELASTIC ATTACHER ZIGZAG) Glucose, POC 125 70 - 199 mg/dL Blood 09/04/2024 7:16 PM ELASTIC ATTACHER ZIGZAG 09/04/2024 7:16 PM ELASTIC ATTACHER ZIGZAG Result [facility] Talya Boucher MD LAB POCT ORDERABLES - DEVICE F inal Result Performing Organization Address [facility] Co de Phone Number [facility] [address] [address] [place] [address] * (ABNORMAL) Blood gas, arterial (09/04/2024 6:16 PM ELASTIC ATTACHER ZIGZAG) pH, Art 7.34(L) 7.35 - 7.45 PCO2, Arterial 44 35 - 45 mmHg [facility] PO2, Arterial 133(H) 83 - 108 mmHg [facility] HCO3 Art (Calculated) 23 20 - 30 mmol/L [facility] BE, art -2 mmol/L [facility] Comment: Interpretive Data No Reference Range Established Current Interpretive Data was last revised on 2017 O2 Sat Art (Measured) 99(H) 90 - 95 % [facility] Blood 09/04/2024 6:16 PM ELASTIC ATTACHER ZIGZAG 09/04/2024 6:23 PM ELASTIC ATTACHER ZIGZAG Talya Boucher MD LAB BLOOD ORDERABLES Final Res ult Performing Organization Address [facility] Co de Phone Number NICOLE RAMOS [address] [address] [facility] [place] [address] * POCT glucose (09/04/2024 6:13 PM ELASTIC ATTACHER ZIGZAG) Glucose, POC 112 70 - 199 mg/dL Blood 09/04/2024 6:13 PM ELASTIC ATTACHER ZIGZAG 09/04/2024 6:13 PM ELASTIC ATTACHER ZIGZAG Talya Boucher MD LAB POCT ORDERABLES - DEVICE F inal Result Performing Organization Address [facility] de Phone Number NICOLE [address] [address] [address] * Calcium, ionized, whole blood (09/04/2024 5:25 PM ELASTIC ATTACHER ZIGZAG) Ca, ionized, bld 4.67 4.50 - 5.10 mg/dL Blood 09/04/2024 5:25 PM ELASTIC ATTACHER ZIGZAG 09/04/2024 5:40 PM ELASTIC ATTACHER ZIGZAG Talya Boucher MD LAB BLOOD ORDERABLES Final Res ult Performing Organization Address [facility] Co de Phone Number CERJYOTI RAMOS [address] Department [place] [address] * eGFR (09/04/2024 5:25 PM ELASTIC ATTACHER ZIGZAG) eGFR 73 >=60 mL/min/1. 73 m2 Comment: [...] last reviewed 2021. Blood 09/04/2024 5:25 PM ELASTIC ATTACHER ZIGZAG 09/04/2024 5:43 PM ELASTIC ATTACHER ZIGZAG Talya Boucher MD LAB BLOOD ORDERABLES Final Res ult NICOLE RAMOS [address] [place] [address] * (ABNORMAL) CBC without differential (09/04/2024 5:25 PM ELASTIC ATTACHER ZIGZAG) WBC 14.8(H) 3.8 - 9.9 K/cumm Hgb 11.7(L) 11.9 - 15.5 g/dL [facility] Hct 35.3(L) 35.6 - 45.5 % [facility] Plt 107(L) 150 - 400 K/cumm [facility] MPV 10.8 9.1 - 12.3 fL [facility] RBC 4.16 3.90 - 5.20 M/cumm [facility] MCV 84.9 81.3 - 96.4 fL [facility] MCH 28.1 27.1 - 33.3 pg [facility] MCHC 33.1 32.3 - 35.7 g/dL [facility] RDW CV 12.4 11.1 - 14.9 % [facility] RDW SD 38.2 35.7 - 48.1 fL [facility] NRBC abs 0.00 0.00 - 0.01 K/cumm [facility] Blood 09/04/2024 5:25 PM ELASTIC ATTACHER ZIGZAG 09/04/2024 5:43 PM ELASTIC ATTACHER ZIGZAG Talya Boucher MD LAB BLOOD ORDERABLES Final Res ult Performing Organization Address City/[facility]/ZIP Co de Phone Number FACUNDOJYOTI [address] [facility] [place] [place] [address] * (ABNORMAL) Phosphorus (09/04/2024 5:25 PM ELASTIC ATTACHER ZIGZAG) Phosphorus, pl 1.7(L) 2.3 - 4.5 mg/dL Blood 09/04/2024 5:25 PM ELASTIC ATTACHER ZIGZAG 09/04/2024 5:40 PM ELASTIC ATTACHER ZIGZAG Talya Boucher MD LAB BLOOD ORDERABLES Final Res ult Performing Organization Address [facility] Co de Phone Number [facility] [address] Department [employer] [place], [place] [id number] * Magnesium (09/04/2024 5:25 PM ELASTIC ATTACHER ZIGZAG) Magnesium 2.3 1.4 - 2.5 mg/dL Blood 09/04/2024 5:25 PM ELASTIC ATTACHER ZIGZAG 09/04/2024 5:40 PM ELASTIC ATTACHER ZIGZAG Talya Boucher MD LAB BLOOD ORDERABLES Final Res ult Performing Organization Address City/[facility] Co de Phone Number NICOLE [address] [address] [place] [address] * (ABNORMAL) Blood gas, arterial (09/04/2024 5:25 PM ELASTIC ATTACHER ZIGZAG) pH, Art 7.50(H) 7.35 - 7.45 PCO2, [...] (Measured) 100(H) 90 - 95 % CERNER CH Blood 09/04/2024 5:25 PM ELASTIC ATTACHER ZIGZAG 09/04/2024 5:40 PM ELASTIC ATTACHER ZIGZAG Talya Boucher MD LAB BLOOD ORDERABLES Final Res ult [facility] [address] [address] [place] [address] * (ABNORMAL) Basic metabolic panel (09/04/2024 5:25 PM ELASTIC ATTACHER ZIGZAG) Sodium 141 135 - 145 mmol/L Potassium, pl 4.8 3.3 - 4.9 mmol/L [facility] Chloride 109 97 - 110 mmol/L [facility] CO2 21(L) 22 - 32 mmol/L [facility] Anion gap 11 2 - 15 mmol/L [facility] BUN 12 6 - 25 mg/dL [facility] Creatinine 0.93 0.60 - 1.10 mg/dL [facility] Glucose 118 70 - 199 mg/dL [facility] Comment: [...] 2022. Calcium 8.5 8.5 - 10.3 mg/dL [facility] CH Blood 09/04/2024 5:25 PM ELASTIC ATTACHER ZIGZAG 09/04/2024 5:40 PM ELASTIC ATTACHER ZIGZAG Talya Boucher MD LAB BLOOD ORDERABLES Final Res ult Performing Organization Address [facility] Co de Phone Number FACUNDOJYOTI RAMOS [address] [address] [place] [address] * POCT glucose (09/04/2024 5:06 PM ELASTIC ATTACHER ZIGZAG) Glucose, POC 116 70 - 199 mg/dL Blood 09/04/2024 5:06 PM ELASTIC ATTACHER ZIGZAG 09/04/2024 5:06 PM ELASTIC ATTACHER ZIGZAG Talya Boucher MD LAB POCT ORDERABLES - DEVICE F inal Result Performing Organization Address [facility] Co de Phone Number NICOLE RAMOS [address] Department [employer] [place], [place] [id number] * POCT glucose (09/04/2024 3:55 PM ELASTIC ATTACHER ZIGZAG) Glucose, POC 101 70 - 199 mg/dL Blood 09/04/2024 3:55 PM ELASTIC ATTACHER ZIGZAG 09/04/2024 3:55 PM ELASTIC ATTACHER ZIGZAG Talya Boucher MD LAB POCT ORDERABLES - DEVICE F inal Result Performing Organization Address [facility] Co de Phone Number FACUNDOJYOTI RAMOS [address] [address] [place] [address] * Blood culture Blood (09/04/2024 3:42 PM ELASTIC ATTACHER ZIGZAG) Report Final Report: No growth Comment:Testing performed by : [facility], [address], [place]., [address] Blood 09/04/2024 3:42 PM ELASTIC ATTACHER ZIGZAG 09/04/2024 6:05 PM ELASTIC ATTACHER ZIGZAG Narrative NICOLE RAMOS - 09/09/2024 7:00 AM ELASTIC ATTACHER ZIGZAG From a different site than #1. Collection->Peripheral [...] performance characteristics have been verified by the [facility] Microbiology Laboratory. For questions about this culture, contact the Microbiology Laboratory at [phone]. Interpretive data was last revised on 24. Jessica Martinez NP LAB MICROBIOLOGY - [facility] AL ORDERABLES Final Result NICOLE RAMOS [address] [address] [place] [address] * Blood culture Blood (09/04/2024 3:42 PM ELASTIC ATTACHER ZIGZAG) Report Final Report: No growth Comment:Testing performed by : [facility], [address] [place]., [address] Blood 09/04/2024 3:42 PM ELASTIC ATTACHER ZIGZAG 09/04/2024 6:05 PM ELASTIC ATTACHER ZIGZAG Lelo Overton 09/09/2024 7:00 AM ELASTIC ATTACHER ZIGZAG Collection->Peripheral 1. Blood cultures are incubated for [...] performance characteristics have been verified by the [facility] Microbiology [facility]. For questions about this culture, contact the Microbiology Laboratory at [phone]. Interpretive data was last revised on 24. Jessica Martinez NP LAB MICROBIOLOGY - GENER AL ORDERABLES Final Result Performing Organization Address City/[facility]/ZIP Co de Phone Number NICOLE RAMOS [address] [address] Department [place] [address] * Calcium, ionized, whole blood (09/04/2024 3:21 PM ELASTIC ATTACHER ZIGZAG) Ca, ionized, bld 4.68 4.50 - 5.10 mg/dL Blood 09/04/2024 3:21 PM ELASTIC ATTACHER ZIGZAG 09/04/2024 3:29 PM ELASTIC ATTACHER ZIGZAG Talya Boucher MD LAB BLOOD ORDERABLES Final Res ult NICOLE RAMOS [address] [address] [place] [address] * (ABNORMAL) Blood gas, arterial (09/04/2024 3:21 PM ELASTIC ATTACHER ZIGZAG) pH, Art 7.48(H) 7.35 - 7.45 PCO2, Arterial 29(L) 35 - 45 mmHg [facility] PO2, Arterial 163(H) 83 - 108 mmHg [facility] HCO3 Art (Calculated) 24 20 - 30 mmol/L CERNER BE, art -2 mmol/L [facility] Comment: Interpretive Data No Reference Range Established Current Interpretive Data was last revised on 2017 O2 Sat Art (Measured) 99(H) 90 - 95 % NICOLE Blood 09/04/2024 3:21 PM ELASTIC ATTACHER ZIGZAG 09/04/2024 3:29 PM ELASTIC ATTACHER ZIGZAG Jessica Martinez NP LAB BLOOD ORDERABLES Fin al Result Performing Organization Address [facility] Co de Phone Number [facility] [address] [address] [facility] [place] [address] * POCT glucose (09/04/2024 2:48 PM ELASTIC ATTACHER ZIGZAG) Glucose, POC 91 70 - 199 mg/dL Blood 09/04/2024 2:48 PM ELASTIC ATTACHER ZIGZAG 09/04/2024 2:48 PM ELASTIC ATTACHER ZIGZAG Talya Boucher MD LAB POCT ORDERABLES - DEVICE F inal Result Performing Organization Address [facility] de Phone Number [facility] [address] [address] [address] * POCT glucose (09/04/2024 1:49 PM ELASTIC ATTACHER ZIGZAG) Glucose, POC 80 70 - 199 mg/dL Blood 09/04/2024 1:49 PM ELASTIC ATTACHER ZIGZAG 09/04/2024 1:49 PM ELASTIC ATTACHER ZIGZAG Talya Boucher MD LAB POCT ORDERABLES - DEVICE F inal Result Performing Organization Address [facility] Co de Phone Number [facility] [address] [address] [facility] [place] [address] * Critical Care (09/04/2024 1:12 PM ELASTIC ATTACHER ZIGZAG) Narrative Lenin Huff MD - 09/04/2024 1:12 PM ELASTIC ATTACHER ZIGZAG Jessica Martinez NP 09/04/2024 1:13 PM Critical [...] plan with the ICU team and other medical/licensed tax consultant staff, making frequent assessments and decisions [...] documenting in the medical record Jessica Martinez NP IN CLINIC/BEDSIDE ORDERA BLES Final Result * XR Chest 1 View - Portable (09/04/2024 12:57 PM ELASTIC ATTACHER ZIGZAG) Anatomical Region Laterality Modality Body, Chest N/A Computed Radiogr aphy 09/04/2024 1:04 PM ELASTIC ATTACHER ZIGZAG Impressions 09/04/2024 1:04 PM ELASTIC ATTACHER ZIGZAG Postsurgical changes. Superior mediastinal widening. Fluid and atelectasis left base. No definite failure or pneumothorax. Nasogastric tube should BE advanced further into the stomach. Electronically signed by: Dick Renteria M.D. Narrative 09/04/2024 1:04 PM ELASTIC ATTACHER ZIGZAG EXAMINATION: XR CHEST 1 VIEW DATE: 09/04/2024 [...] gastroesophageal junction and should BE advanced further. [place] catheter entering the right IJ approach directed [...] gastroesophageal junction and should BE advanced further. [place] catheter entering the right IJ approach directed to the main pulmonary artery. IMPRESSION: Postsurgical changes. Superior mediastinal widening. Fluid and atelectasis left base. No definite failure or pneumothorax. Nasogastric tube should BE advanced further into the stomach. Electronically signed by: Dick Renteria M.D. Talya Boucher MD IMG XR PROCEDURES Final Result * Surgical pathology (09/04/2024 12:35 PM ELASTIC ATTACHER ZIGZAG) Tissue specimen (specimen) (Heart Valve) 09/04/2024 9:46 AM ELASTIC ATTACHER ZIGZAG Narrative PATHOLOGY CH - 09/05/2024 10:09 AM ELASTIC ATTACHER ZIGZAG EPIC results best viewed via link to PDF [facility] Department of Pathology [address] [place] [address] Note to Patients: This report may [...] Final Report Patient Name: ZURI ACEVES Address: [address] [place] [address] Gender: F : 1970 (Age: 54) Service: Cardiothoracic Location: [facility] Hospital #: [id number] Patient Type: [facility] Taken: 09/04/2024 Received: 09/04/2024 Accessioned: 09/04/2024 Reported: 09/05/2024 Physician(s):Audie Salazar M.D. Diagnosis: Aortic valve leaflets - Fibroconnective [...] single formalin filled container labeled with ZURI PASCALPER and aortic valve leaflets .It is a [...] determined by the Surgical Pathology Department at [facility] as part of an ongoing quality and reliability engineer program and in compliance with federally mandated [...] characteristics determined by the Surgical Pathology Department [facility]. It has not been cleared or approved by the U. S. Food and Drug Administration. Note for decalcified specimens: This assay has not been validated on decalcified tissues. Results should be interpreted with caution given the possibility of false negativity on decalcified specimens Talya Boucher MD LAB PATHOLOGY ORDERABLES Final Result Performing Organization Address [facility] Co de Phone Number PATHOLOGY [address] [place] [address] * eGFR (09/04/2024 12:27 PM ELASTIC ATTACHER ZIGZAG) eGFR 70 >=60 mL/min/1. 73 m2 Comment: [...] reviewed 2021. Blood 09/04/2024 12:2 7 PM ELASTIC ATTACHER ZIGZAG 09/04/2024 12:34 PM ELASTIC ATTACHER ZIGZAG Talya Boucher MD LAB BLOOD ORDERABLES Final Res ult Performing Organization Address [facility] Co de Phone Number CERNER [address] [address] Department [place] [address] * (ABNORMAL) aPTT (09/04/2024 12:27 PM ELASTIC ATTACHER ZIGZAG) aPTT 26(L) 28 - 38 sec Comment: Interpretive Data Heparin therapeutic range: 66.0 - 100.0 seconds. Range based on correlation with therapeutic heparin activity range of 0.3 - 0.7 Units/mL. Current interpretive data was last revised on 2023. Blood 09/04/2024 12:2 7 PM ELASTIC ATTACHER ZIGZAG 09/04/2024 12:34 PM ELASTIC ATTACHER ZIGZAG Talya Boucher MD LAB BLOOD ORDERABLES Final Res ult Performing Organization Address [facility] Co de Phone Number NICOLE RAMOS [address] [place] [address] * Protime-INR (09/04/2024 12:27 PM ELASTIC ATTACHER ZIGZAG) Pathologist [facility] PT 12.1 9.7 - 13.0 sec INR 1.12 0.90 - 1.20 NICOLE Comment: Interpretive data Oral anticoagulant therapeutic ranges: Venous thromboembolism prophylaxis or treatment: 2.0-3.0 CARDIOLOGY Standard range: 2.0-3.0 High-intensity range: 2.5-3.5 Refer to indication-specific guidelines for appropriate target ranges for prosthetic heart valve replacement. Current interpretive data was last revised on 2019. Blood 09/04/2024 12:2 7 PM ELASTIC ATTACHER ZIGZAG 09/04/2024 12:34 PM ELASTIC ATTACHER ZIGZAG Talya Boucher MD LAB BLOOD ORDERABLES Final Res ult Performing Organization Address [facility]/ZIP Co de Phone Number NICOLE RAMOS [address] [address] [address] * (ABNORMAL) CBC without differential (09/04/2024 12:27 PM ELASTIC ATTACHER ZIGZAG) Pathologist [facility] WBC 32.6(H) 3.8 - 9.9 K/cumm Hgb 11.9 11.9 - 15.5 g/dL [facility] Hct 36.5 35.6 - 45.5 % [facility] Plt 130(L) 150 - 400 K/cumm [facility] MPV 10.3 9.1 - 12.3 fL [facility] RBC 4.18 3.90 - 5.20 M/cumm [facility] MCV 87.3 81.3 - 96.4 fL [facility] MCH 28.5 27.1 - 33.3 pg [facility] MCHC 32.6 32.3 - 35.7 g/dL [facility] RDW CV 12.3 11.1 - 14.9 % [facility] RDW SD 39.7 35.7 - 48.1 fL [facility] NRBC abs 0.00 0.00 - 0.01 K/cumm [facility] Blood 09/04/2024 12:2 7 PM ELASTIC ATTACHER ZIGZAG 09/04/2024 12:34 PM ELASTIC ATTACHER ZIGZAG Talya Boucher MD LAB BLOOD ORDERABLES Final Res ult Performing Organization Address [facility] Co de Phone Number NICOLE [address] [address] [place] [address] * Phosphorus (09/04/2024 12:27 PM ELASTIC ATTACHER ZIGZAG) Phosphorus, pl 2.7 2.3 - 4.5 mg/dL Blood 09/04/2024 12:2 7 PM ELASTIC ATTACHER ZIGZAG 09/04/2024 3:18 PM ELASTIC ATTACHER ZIGZAG Talya Boucher MD LAB BLOOD ORDERABLES Final Res ult Performing Organization Address [facility] Co de Phone Number [facility] [address] [address] [place] [address] * Phosphorus (09/04/2024 12:27 PM ELASTIC ATTACHER ZIGZAG) Phosphorus, pl 2.7 2.3 - 4.5 mg/dL Blood 09/04/2024 12:2 7 PM ELASTIC ATTACHER ZIGZAG 09/04/2024 12:34 PM ELASTIC ATTACHER ZIGZAG Jessica Martinez NP LAB BLOOD ORDERABLES Fin al Result Performing Organization Address City/[facility] Co de Phone Number FACUNDOJYOTI RAMOS [address] [address] [place] [place] [address] * (ABNORMAL) Magnesium (09/04/2024 12:27 PM ELASTIC ATTACHER ZIGZAG) Magnesium 2.8(H) 1.4 - 2.5 mg/dL Blood 09/04/2024 12:2 7 PM ELASTIC ATTACHER ZIGZAG 09/04/2024 3:18 PM ELASTIC ATTACHER ZIGZAG Talya Boucher MD LAB BLOOD ORDERABLES Final Res ult Performing Organization Address [facility] Co de Phone Number FACUNDOJYOTI RAMOS [address] [address] [facility] [place] [address] * (ABNORMAL) Blood gas, arterial (09/04/2024 12:27 PM ELASTIC ATTACHER ZIGZAG) pH, Art 7.28(L) 7.35 - 7.45 PCO2, [...] CERNER CH Blood 09/04/2024 12:2 7 PM ELASTIC ATTACHER ZIGZAG 09/04/2024 12:35 PM ELASTIC ATTACHER ZIGZAG Talya Boucher MD LAB BLOOD ORDERABLES Final Res ult Performing Organization Address [facility] Co de Phone Number FACUNDOJYOTI RAMOS [address] [address] [place] [place] [address] * (ABNORMAL) Basic metabolic panel (09/04/2024 12:27 PM ELASTIC ATTACHER ZIGZAG) Sodium 142 135 - 145 mmol/L Potassium, pl 3.6 3.3 - 4.9 mmol/L [facility] CH Chloride 110 97 - 110 mmol/L [facility] CO2 20(L) 22 - 32 mmol/L [facility] CH Anion gap 12 2 - 15 mmol/L [facility] BUN 11 6 - 25 mg/dL [facility] Creatinine 0.96 0.60 - 1.10 mg/dL [facility] Glucose 140 70 - 199 mg/dL [facility] Comment: Interpretive Data Fasting glucose >/= 126 [...] 2022. Calcium 8.1(L) 8.5 - 10.3 mg/dL [facility] Blood 09/04/2024 12:2 7 PM ELASTIC ATTACHER ZIGZAG 09/04/2024 12:34 PM ELASTIC ATTACHER ZIGZAG Talya Boucher MD LAB BLOOD ORDERABLES Final Res ult Performing Organization Address [facility]/ZIP Co de Phone Number FACUNDOJYOTI [address] [address] [employer] [place], [place] [address] * POCT glucose (09/04/2024 11:55 AM ELASTIC ATTACHER ZIGZAG) Glucose, POC 138 70 - 199 mg/dL Blood 09/04/2024 11:5 5 AM ELASTIC ATTACHER ZIGZAG 09/04/2024 11:55 AM ELASTIC ATTACHER ZIGZAG Talya Boucher MD LAB POCT ORDERABLES - DEVICE F inal Result Performing Organization Address City/[facility]/ZIP Co de Phone Number NICOLE [address] [address] [place] [place] [address] * (ABNORMAL) POC Blood Gas and Chemistries, Arterial - (09/04/2024 11:04 AM ELASTIC ATTACHER ZIGZAG) pH, Art POC 7.34(L) 7.35 - 7.45 [...] CERNER CH Blood 09/04/2024 11:0 4 AM ELASTIC ATTACHER ZIGZAG 09/04/2024 11:04 AM ELASTIC ATTACHER ZIGZAG Talya Boucher MD LAB POCT ORDERABLES - DEVICE F inal Result Performing Organization Address [facility]/ZIP Co de Phone Number NICOLE RACHEL [address] [address] [place] [address] * POC Activated Clotting Time, High Range (09/04/2024 11:00 AM ELASTIC ATTACHER ZIGZAG) ACT 107 87 - 138 sec Blood 09/04/2024 11:0 0 AM ELASTIC ATTACHER ZIGZAG 09/04/2024 11:00 AM ELASTIC ATTACHER ZIGZAG Talya Boucher MD LAB BLOOD ORDERABLES Final Res ult Performing Organization Address City/[facility]/[place] [address] [address] [place] [address] * (ABNORMAL) POC Blood Gas and Chemistries, Arterial - (09/04/2024 10:20 AM ELASTIC ATTACHER ZIGZAG) Pathologist [facility] pH, Art POC 7.32(L) 7.35 - 7.45 [...] CERNER CH Blood 09/04/2024 10:2 0 AM ELASTIC ATTACHER ZIGZAG 09/04/2024 10:20 AM ELASTIC ATTACHER ZIGZAG Talya Boucher MD LAB POCT ORDERABLES - DEVICE F inal Result NICOLE RAMOS [address] [address] [place] [address] * (ABNORMAL) POC Activated Clotting Time, High Range (09/04/2024 10:19 AM ELASTIC ATTACHER ZIGZAG) ACT 442(H) 87 - 138 sec Blood 09/04/2024 10:1 9 AM ELASTIC ATTACHER ZIGZAG 09/04/2024 10:19 AM ELASTIC ATTACHER ZIGZAG Talya Boucher MD LAB BLOOD ORDERABLES Final Res ult [facility] [address] [address] [place] [address] * (ABNORMAL) POC Blood Gas and Chemistries, Arterial - (09/04/2024 9:57 AM ELASTIC ATTACHER ZIGZAG) pH, Art POC 7.33(L) 7.35 - 7.45 [...] g/dL [facility] CH Blood 09/04/2024 9:57 AM ELASTIC ATTACHER ZIGZAG 09/04/2024 9:57 AM ELASTIC ATTACHER ZIGZAG Talya Boucher MD LAB POCT ORDERABLES - DEVICE F inal Result NICOLE RAMOS [address] [place] [address] * (ABNORMAL) Platelet count (09/04/2024 9:56 AM ELASTIC ATTACHER ZIGZAG) Plt 123(L) 150 - 400 K/cumm Blood 09/04/2024 9:56 AM ELASTIC ATTACHER ZIGZAG 09/04/2024 10:10 AM ELASTIC ATTACHER ZIGZAG us Talya Boucher MD LAB BLOOD ORDERABLES Final Res ult Performing Organization Address [facility] Co de Phone Number NICOLE RAMOS [address] [address] [place] [address] * (ABNORMAL) POC Blood Gas and Chemistries, Arterial - (09/04/2024 9:55 AM ELASTIC ATTACHER ZIGZAG) Pathologist [facility] pH, Art POC 7.35 7.35 - 7.45 [...] g/dL [facility] CH Blood 09/04/2024 9:55 AM ELASTIC ATTACHER ZIGZAG 09/04/2024 9:55 AM ELASTIC ATTACHER ZIGZAG Talya Boucher MD LAB POCT ORDERABLES - DEVICE F inal Result Performing Organization Address [facility] Co de Phone Number NICOLE RAMOS [address] [address] [place] [address] * (ABNORMAL) POC Activated Clotting Time, High Range (09/04/2024 9:54 AM ELASTIC ATTACHER ZIGZAG) ACT 526(H) 87 - 138 sec Blood 09/04/2024 9:54 AM ELASTIC ATTACHER ZIGZAG 09/04/2024 9:54 AM ELASTIC ATTACHER ZIGZAG Talya Boucher MD LAB BLOOD ORDERABLES Final Res ult Performing Organization Address [facility] Co de Phone Number NICOLE RAMOS [address] [address] [place] [address] * (ABNORMAL) POC Blood Gas and Chemistries, Arterial - (09/04/2024 9:19 AM ELASTIC ATTACHER ZIGZAG) pH, Art POC 7.32(L) 7.35 - 7.45 [...] - 15.5 g/dL [facility] CH Blood 09/04/2024 9:19 AM ELASTIC ATTACHER ZIGZAG 09/04/2024 9:19 AM ELASTIC ATTACHER ZIGZAG Talya Boucher MD LAB POCT ORDERABLES - DEVICE F inal Result NICOLE RACHEL [address] [address] [place] [address] * (ABNORMAL) POC Activated Clotting Time, High Range (09/04/2024 9:18 AM ELASTIC ATTACHER ZIGZAG) ACT 526(H) 87 - 138 sec Blood 09/04/2024 9:18 AM ELASTIC ATTACHER ZIGZAG 09/04/2024 9:18 AM ELASTIC ATTACHER ZIGZAG Talya Boucher MD LAB BLOOD ORDERABLES Final Res ult Performing Organization Address [facility] Co de Phone Number FACUNDOJYOTI [address] [address] [place] [address] * BW AN SHEATH INTRODUCER PERFORMABLE, PULMONARY ARTERY CATH (09/04/2024 9:15 AM ELASTIC ATTACHER ZIGZAG) Narrative Enoc Guerrero AA - 09/04/2024 9:15 AM ELASTIC ATTACHER ZIGZAG Enoc Guerrero AA 09/04/2024 9:15 AM Central [...] MD ANESTHESIA ORDERABLES Final Resu lt * CA AN ELECTIVE ENDOTRACHEAL AIRWAY (09/04/2024 9:14 AM ELASTIC ATTACHER ZIGZAG) Enoc King AA - 09/04/2024 9:14 AM ELASTIC ATTACHER ZIGZAG Enoc Guerrero AA 09/04/2024 9:15 AM Airway [...] lt * Arterial Line (09/04/2024 9:13 AM ELASTIC ATTACHER ZIGZAG) Narrative Enoc Guerrero AA - 09/04/2024 9:13 AM ELASTIC ATTACHER ZIGZAG Enoc Guerrero AA 09/04/2024 9:14 AM Arterial [...] well with no complications Additional comments: Rebeca MCADAMS placed A line under direct supervision us Augie Gannon MD ANESTHESIA ORDERABLES Final Resu lt * (ABNORMAL) POC Activated Clotting Time, High Range (09/04/2024 8:53 AM ELASTIC ATTACHER ZIGZAG) ACT 448(H) 87 - 138 sec Blood 09/04/2024 8:53 AM ELASTIC ATTACHER ZIGZAG 09/04/2024 8:53 AM ELASTIC ATTACHER ZIGZAG us Talya Boucher MD LAB BLOOD ORDERABLES Final Res ult [facility] [address] [address] Department of [place] [address] * SCOTTY (09/04/2024 8:28 AM ELASTIC ATTACHER ZIGZAG) Anatomical Region Laterality Modality Other Narrative 09/04/2024 8:28 AM ELASTIC ATTACHER ZIGZAG Augie Gannon MD 09/04/2024 8:30 AM SCOTTY [...] inferior: hypokinetic 16- Apical septal: hypokinetic 17- Garwin: hypokinetic Valves: Aortic Valve: Annulus: normal (22 [...] the written comments contained within the report. us Augie Gannon MD ANESTHESIA ORDERABLES Final Resu lt * (ABNORMAL) POC Blood Gas and Chemistries, Arterial - (09/04/2024 8:21 AM ELASTIC ATTACHER ZIGZAG) pH, Art POC 7.43 7.35 - 7.45 [...] g/dL [facility] Blood 09/04/2024 8:21 AM ELASTIC ATTACHER ZIGZAG 09/04/2024 8:21 AM ELASTIC ATTACHER ZIGZAG Talya Boucher MD LAB POCT ORDERABLES - DEVICE F inal Result Performing Organization Address [facility] Co de Phone Number NICOLE [address] [facility] [place] [place] [address] * POC Activated Clotting Time, High Range (09/04/2024 8:18 AM ELASTIC ATTACHER ZIGZAG) Pathologist [facility] ACT 109 87 - 138 sec Blood 09/04/2024 8:18 AM ELASTIC ATTACHER ZIGZAG 09/04/2024 8:18 AM ELASTIC ATTACHER ZIGZAG Talya Boucher MD LAB BLOOD ORDERABLES Final Res ult Performing Organization Address [facility] de Phone Number [facility] [address] [address] [facility] [place] [address] * Check Sample (09/04/2024 6:51 AM ELASTIC ATTACHER ZIGZAG) [facility] ABO Rh B Positive CH HCLL OTHER 09/04/2024 6:51 AM ELASTIC ATTACHER ZIGZAG 09/04/2024 6:51 AM ELASTIC ATTACHER ZIGZAG Talya Boucher MD LAB BLOOD ORDERABLES Final Res ult Performing Organization Address [facility] de Phone Number [facility] [address] [facility] [place] [address] CH * POCT hCG, urine (09/04/2024 6:30 AM ELASTIC ATTACHER ZIGZAG) [facility] HCG, ur, POC Negative Negative Lot Number [id number] QC Backgroud Clear Acceptable QC Control Line Acceptable Urine 09/04/2024 6:30 AM ELASTIC ATTACHER ZIGZAG Talya Boucher MD POINT OF CARE TEST ORDERABLES Final Result * Prepare RBC: 4 Units (09/04/2024 5:35 AM ELASTIC ATTACHER ZIGZAG) Pathologist [facility] Product code [id number] [facility] Unit Number [id number] 5-4 [facility] Product Blood Type BPOS [facility] Dispense Status RETURNED [facility] Product code [id number] Unit Number [id number] 0-R [facility] Product Blood Type BPOS C[facility] Dispense Status RETURNED [facility] Product code [id number] [facility] Unit Number [id number] 8-E [facility] Product Blood Type BPOS C[facility] Dispense Status RETURNED [facility] Product code [id number] [facility] Unit Number [id number] 6-V [facility] Product Blood Type BPOS [facility] Dispense Status RETURNED [facility] Blood 09/04/2024 5:35 AM ELASTIC ATTACHER ZIGZAG Narrative [facility] - 09/05/2024 12:07 AM ELASTIC ATTACHER ZIGZAG Specify Procedure:->AVR Are special requirements needed? (All products are leukoreduced and CMV- safe)- >No Date required:-[id number] LRRBC # of [id number] Reasons:-Hold for procedure (specify procedure)} Leeann Odom [employer] BLOOD BANK PRODUCT ORDERA BLES Final Result Performing Organization Address City/[facility]/ZIP Co de Phone Number [facility] [address] [address] Department of [facility] [place], [place] [id number] * ECG 12 lead (08/24/2024 9:48 AM ELASTIC ATTACHER ZIGZAG) 08/24/2024 9:48 AM ELASTIC ATTACHER ZIGZAG Narrative [facility] - 08/24/2024 3:02 PM ELASTIC ATTACHER ZIGZAG Vent Rate: 94 bpm RR Interval: 635 msec CA Interval: 132 msec QRS Duration: 96 msec QT Interval: 343 msec QTC Interval: 395 msec P-R-T [place]: 7 - -7 - 24 degrees IMPRESSION: SINUS RHYTHM INFERIOR MYOCARDIAL INFARCTION , PROBABLY OLD ABNORMAL ECG Electronically Signed By: Joseluis Sherman MD Talya Boucher MD ECG ORDERABLES Final Result Performing Organization Address City/[facility]/ZIP Co de Phone Number [facility] * XR Chest PA Lateral 2 View (08/24/2024 9:27 AM ELASTIC ATTACHER ZIGZAG) Anatomical Region Laterality Modality Body, Chest N/A Computed Radiogr aphy 08/24/2024 12:0 4 PM ELASTIC ATTACHER ZIGZAG Impressions 08/24/2024 12:04 PM ELASTIC ATTACHER ZIGZAG No acute cardiopulmonary findings. Electronically signed by: Feliciano Guevara II, D.O. Narrative 08/24/2024 12:04 PM ELASTIC ATTACHER ZIGZAG EXAMINATION: XR CHEST PA LATERAL 2 VIEWS [...] Electronically signed by: Feliciano Guevara II, D.O. Talya Boucher MD IMG XR PROCEDURES Final Result * eGFR (08/24/2024 9:25 AM ELASTIC ATTACHER ZIGZAG) eGFR 76 >=60 mL/min/1. 73 m2 Comment: [...] last reviewed 2021. Blood 08/24/2024 9:25 AM ELASTIC ATTACHER ZIGZAG 08/24/2024 9:37 AM ELASTIC ATTACHER ZIGZAG Talya Boucher MD LAB BLOOD ORDERABLES Final Res ult Performing Organization Address [facility] de Phone Number NICOLE [address] [address] [place] [address] * Urinalysis reflex to microscopic and culture Urine, clean voided (08/24/2024 9:25 AM ELASTIC ATTACHER ZIGZAG) Color, ur Yellow Yellow Clarity, ur Clear [...] tendency for uric acid stone formation. Source: [facility] Current Interpretive Data was last revised on [...] CH Urine, clean voided 08/24/2024 9:25 AM ELASTIC ATTACHER ZIGZAG 08/24/2024 9:53 AM ELASTIC ATTACHER ZIGZAG Talya Boucher MD LAB MICROBIOLOGY - GENERAL ORD ERABLES Final Result Performing Organization Address [facility]/ZIP Co de Phone Number [facility] [address] [address] [place] [address] * aPTT (08/24/2024 9:25 AM ELASTIC ATTACHER ZIGZAG) aPTT 30 28 - 38 sec Comment: Interpretive Data Heparin therapeutic range: 66.0 - 100.0 seconds. Range based on correlation with therapeutic heparin activity range of 0.3 - 0.7 Units/mL. Current interpretive data was last revised on 2023. Blood 08/24/2024 9:25 AM ELASTIC ATTACHER ZIGZAG 08/24/2024 9:37 AM ELASTIC ATTACHER ZIGZAG Talya Boucher MD LAB BLOOD ORDERABLES Final Res ult Performing Organization Address [facility] Co de Phone Number NICOLE RAMOS [address] [address] [address] * Protime-INR (08/24/2024 9:25 AM ELASTIC ATTACHER ZIGZAG) Pathologist [facility] PT 10.4 9.7 - 13.0 sec INR 0.96 0.90 - 1.20 NICOLE Comment: Interpretive data Oral anticoagulant therapeutic ranges: Venous thromboembolism prophylaxis or treatment: 2.0-3.0 CARDIOLOGY Standard range: 2.0-3.0 High-intensity range: 2.5-3.5 Refer to indication-specific guidelines for appropriate target ranges for prosthetic heart valve replacement. Current interpretive data was last revised on 2019. Blood 08/24/2024 9:25 AM ELASTIC ATTACHER ZIGZAG 08/24/2024 9:37 AM ELASTIC ATTACHER ZIGZAG Talya Boucher MD LAB BLOOD ORDERABLES Final Res ult Performing Organization Address City/[facility]/ZIP Co de Phone Number NICOLE RAMOS [address] [address] [address] * CBC without differential (08/24/2024 9:25 AM ELASTIC ATTACHER ZIGZAG) Pathologist [facility] WBC 8.1 3.8 - 9.9 K/cumm Hgb 14.2 11.9 - 15.5 g/dL NICOLE Hct 43.6 35.6 - 45.5 % NICOLE Plt 152 150 - 400 K/cumm [facility] MPV 9.9 9.1 - 12.3 fL [facility] RBC 5.00 3.90 - 5.20 M/cumm [facility] MCV 87.2 81.3 - 96.4 fL [facility] MCH 28.4 27.1 - 33.3 pg [facility] MCHC 32.6 32.3 - 35.7 g/dL [facility] RDW CV 12.2 11.1 - 14.9 % [facility] RDW SD 39.1 35.7 - 48.1 fL [facility] NRBC abs 0.00 0.00 - 0.01 K/cumm [facility] Blood 08/24/2024 9:25 AM ELASTIC ATTACHER ZIGZAG 08/24/2024 9:37 AM ELASTIC ATTACHER ZIGZAG Talya Boucher MD LAB BLOOD ORDERABLES Final Res ult Performing Organization Address [facility] Co de Phone Number NICOLE [address] [address] Department [address] [place] [address] * Type and screen (08/24/2024 9:25 AM ELASTIC ATTACHER ZIGZAG) Pathologist [facility] Josefa, indirect Negative ABO Rh B Positive [facility] Blood 08/24/2024 9:25 AM ELASTIC ATTACHER ZIGZAG 08/24/2024 9:37 AM ELASTIC ATTACHER ZIGZAG Narrative [facility] - 08/24/2024 10:19 AM ELASTIC ATTACHER ZIGZAG Has the patient had Daratumumab or Isatuximab in the past 6 months?->Unknown Talya Boucher MD LAB BLOOD BANK TEST ORDERABLES Final Result [facility] [address] [address] [place] [place] [address] * Basic metabolic panel (08/24/2024 9:25 AM ELASTIC ATTACHER ZIGZAG) Sodium 137 135 - 145 mmol/L Potassium, pl 3.8 3.3 - 4.9 mmol/L [facility] Chloride 104 97 - 110 mmol/L [facility] CO2 22 22 - 32 mmol/L [facility] Anion gap 11 2 - 15 mmol/L [facility] BUN 13 6 - 25 mg/dL [facility] Creatinine 0.90 0.60 - 1.10 mg/dL [facility] Glucose 102 70 - 199 mg/dL [facility] Comment: Interpretive Data Fasting glucose >/= 126 [...] 2022. Calcium 9.5 8.5 - 10.3 mg/dL [facility] Blood 08/24/2024 9:25 AM ELASTIC ATTACHER ZIGZAG 08/24/2024 9:37 AM ELASTIC ATTACHER ZIGZAG Talya Boucher MD LAB BLOOD ORDERABLES Final Res ult [facility] [address] [address] [place] [address] from Last 3 Months Insurance [address] [place] [address] [employer] OPEN ACCESS [facility] [place] [address] [facility] Advance Directives For more information, please contact: [phone] * Full Code (Latest Code Status on File) Date Activated Date Inactivated Comments 09/04/2024 12:23 PM 09/08/2024 9:18 PM Healthcare Agents on File Name Relationship Healthcare Agent Relationshi p Communication Nitesh Limon Spouse Health Care Agent Care Teams Sap Bpc Architect Relationship Specialty Start Date End Date Geovany Wong DO [address] [facility] [address] [place] [address] PCP - General Internal Medicine 09/06/24 Dl Phillips MD Referring Physician Cardiology 12/23/22 Severino Aden MD [address] [address] [place] [address] Consulting Physician Cardiothoracic Surgery 12/23/22 Talya Boucher MD [address] [facility] [id number] [place] [address] Surgeon Cardiothoracic Surgery 09/08/24 Qasim Ross MD [address] [facility] [address] [place] [address] Consulting Physician Cardiology 09/08/24
== END 2024-11-05 14:30 | disposition home or self-care (01) ==
LOC: ANHIMG 14:32
PROVIDERS: PCP Internal Medicine; Visit Provider Advanced Practice Midwife
DX: Z12.31 Encounter for screening mammogram for malignant neoplasm of breast (principal)
CPT/HCPCS: 77063; 77067

== ENCOUNTER 2024-11-25 12:21 | Emergency (ER) | payer BC, SELFPAY ==
--- NOTE | ~2024-11-25 | XR_ITS ---
XR chest 2V Ordering provider: Santana Lanier MD History: 54 years Female with . cp . Comparison: July 21, 2020 FINDINGS: MEDIASTINUM: The cardiac silhouette is not enlarged. Postoperative changes in the mediastinum. LUNGS: No infiltrates, effusions or pneumothorax. OTHER: No free air under the diaphragm. Degenerative spine. IMPRESSION: No acute cardiopulmonary pathology. Reviewed, dictated and finalized at location A.
--- NOTE | ~2024-11-25 | CT_ITS ---
EXAMINATION: CTA chest PE protocol DATE: 11/25/2024 13:40 INDICATION: Chest pain TECHNIQUE: Computed tomography (CT) pulmonary angiogram of the chest was performed with 100 mL Omnipa que-350 intravenous contrast. Additional 3D reconstructions utilizing coronal maximum intensity proje ction (MIP) were performed. Automated exposure control and iterative reconstruction technique were em ployed. The dose-length product was 796.92 mGy-cm. COMPARISON: None FINDINGS: No pulmonary embolism. Lungs are clear with no pneumonia, pulmonary edema, pleural effusion or pneumo thorax. Heart size is normal. Atherosclerotic coronary artery calcific lesion. Postoperative change o f prior median sternotomy and aortic valve repair. There are retained epicardial pacemaker leads jessica g the anteroinferior heart. Thoracic aorta is normal in caliber with no dissection. Multinodular goit er. Postoperative change of prior sleeve gastrectomy with suture line along the greater curvature of the stomach. Cholecystectomy clips the gallbladder fossa. Chronic nodular thickening of the bilateral adrenal glands, unchanged since 03/21/2018 would be most consistent with small adenomas or adrenal hy perplasia. IMPRESSION: 1. No pulmonary embolism or other acute cardiopulmonary disease. Reviewed, dictated and finalized at location A.
--- OUTSIDE RECORDS SUMMARY | 2024-11-25 12:23 | XMS_ITS | Encounter Summary ---
Author Organization [facility] Healthcare Address [address] [place] [address] Care Team Providers Care Toeing Stockings Name Role Phone Dl Phillips MD Unavailable [phone] Severino Aden MD Unavailable [phone] Geovany Wong DO Primary Care Provider [phone] Talya Boucher MD Unavailable [phone] Qasim Ross MD Unavailable Encounter Details Date Type Department Care Team (Late st Contact Info) Description 09/11/2024 [facility] Post Discharge Follow up phone call [facility] [address] [place] [address] Shagufta Ureña, BERTHA Social History [...] or isolatio n Never 09/11/2024 [facility] Utilities Answer Date Recorded In the past 12 months has [employer] e electric, gas, oil, or water company [...] often do you attend chur ch or rastafari services? Never 09/06/2024 Do you belong to any clubs o r organizations such as yarsanism groups, unions, fraternal or athletic groups, or [...] were you homeless or living in a long term (including now)? No 09/06/2024 Personal Safety Answer Date Recorded Have you ever been in or are you currently in a harmful physical or emotional relationship or is someone making you feel afraid or unsafe? 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 Gender Identity Not on file Sexual Orientation Not on file documented as of this encounter Plan of Treatment Not on file documented as of this encounter Visit Diagnoses Not on filedocumented in this encounter Care Teams Toeing Stockings Relationship Specialty Start Date End Date Geovany Wong DO [address] [place] [address] PCP - General Internal Medicine 09/06/24 Dl Phillips MD Referring Physician Cardiology 12/23/22 Severino Aden MD [address] [facility] [address] [place] [address] Consulting Physician Cardiothoracic Surgery 12/23/22 Talya Boucher MD [address] [facility] [id number] [place] [address] Surgeon Cardiothoracic Surgery 09/08/24 Qasim Ross MD [address] [place], [place] [address] Consulting Physician Cardiology 09/08/24 documented as of this encounter
--- OUTSIDE RECORDS SUMMARY | 2024-11-25 12:23 | XMS_ITS | Patient Health Record ---
Author Organization [facility] Address [address] [facility] [address] [place] [address] Care Team Providers Care Personnel Manager Name Role Phone Geovany Wong DO Primary Care Provider UnavailJessy Bhatia Unavailable [phone] Bean Hernandez Unavailable [phone] Migration, Provider Unavailable Unavailable Allergies Allergen (clinical drug ingredient) Drug/Non Drug Allergy documented on EMR Reaction Allergy Type Onset Date Status carbamazepine carBAMazepine Unknown Drug Allergy Active Latex Latex Unknown Allergy 11/28/2023 Active Substance with penicillin structure and antibacterial mechanism of action (substance) Penicillins Unknown Drug Allergy 11/28/2023 Active Reason For Referral No Information Medications Medication SIG (Take, Route, Frequency, Duration) Notes Start Date End Date Status Ziprasidone HCl 20 MG 1 capsule with roselyn d Oral every morning Active Venlafaxine HCl ER 150 MG 2 capsule each morning Oral once a day Active Vyvanse 70 MG 1 capsule each morning Oral Once a day for 30 days do not fill before 10/18/2024 11/02/2024 Active ALPRAZolam 1 MG 1 tablet Oral Twice a day for 30 days As needed for anxiety 11/02/2024 Active Pravastatin Sodium 40 MG Oral 11/28/2023 Active Omeprazole 40 MG Oral 11/28/2023 Ac tive Vraylar 1.5 MG 1 capsule once a day for 14 days, 2 capsules once a day for 14 days Orally for 28 days samples given do not fill/send 11/02/2024 Active Warfarin Sodium 2 MG Oral for 30 Days Active Varenicline Tartrate 1 MG TAKE 1 TABLET TWICE A DAY BY ORAL ROUTE FOR 90 DAYS. Orally twice daily for 90 days Active Social History Tobacco Use: Social History Observation Description Date Details (start date - stop date) Former Smoker 09/02/2015 - 09/04/2024 Sex Assigned At : Social History Observation Description Sex Assigned At Female Household Question Answer Notes Marital status: Number of adults in household: 2 Number of children in household: 2 Tobacco Control (Standard) Question Answer Notes When did you start smoking? 09/02/2015 When did you stop smoking? 09/04/2024 How long has it been since you last smoked? 1-3 months Tobacco use: Former smoker When did you start smoking? 521073 How often do you smoke cigarettes? Every day How many cigarettes a day do you smoke? 6-10 How soon after you wake up do you smoke your fir st cigarette? 31-60 minutes Are you interested in quitting? Ready to quit AUDIT-C (Standard) Question Answer Notes Did you have a drink contain ing alcohol in the past year? Yes How often did you have six o r more drinks on one occasion in the past year? Never (0 point) How many drinks did you have on a typical day when you were drinking in the past year? 1 or 2 drinks (0 point) How often did you have a dri nk containing alcohol in the past year? Monthly or less (1 point) Problems Problem Type SNOMED Code ICD Code Onset Dates Problem Status W/U Status Risk Notes Problem Tobacco user (921930929) Nicotine dependence, unspecified, uncomplicated (F17.200) Active confirmed Problem Moderate recurrent major depression (25002134) Major depressive disorder, recurrent, moderate (F33.1) Active confirmed Problem Recurrent major depression (66069140) Major depressive disorder, recurrent, unspecified (F33.9) Active confirmed Problem Generalized anxiety disorder (31919207) Generalized anxiety disorder (F41.1) Active confirmed Problem Attention deficit hyperactivity disorder (984509826) Attention-deficit hyperactivity disorder, unspecified type (F90.9) Active confirmed Problem 12000632 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) Active confirmed Vital Signs Heart Rate 103 /min 11/02/2024 Height-cm 165.10 cm 11/02/2024 Blood pressure diastolic 95 mm Hg 11/02/2024 Weight-kg 109.32 kg 11/02/2024 Height 65.00 in 11/02/2024 Blood pressure systolic 159 mm Hg 11/02/2024 Weight 241 lbs 11/02/2024 BMI 40.1 kg/m2 11/02/2024 Encounters Encounter Location Date Provider Diagnosis [place] [id number] [facility] [address] [address] 11/28/2023 Thena David Generalized anxiety disorder F41.1 ; Major depressive disorder, recurrent, unspecified F33.9 ; Attention-deficit hyperactivity disorder, unspecified type F90.9 and Nicotine dependence, unspecified, uncomplicated F17.[address] [facility] [address] [place] [address] 01/02/2024 Thena David Major depressive disorder, recurrent, unspecified F33.9 ; Generalized anxiety disorder F41.1 ; Attention-deficit hyperactivity disorder, unspecified type F90.9 and Nicotine dependence, unspecified, uncomplicated F17.200 [facility] [address] [address] 02/14/2024 Thena David Generalized anxiety disorder F41.1 ; Attention-deficit hyperactivity disorder, unspecified type F90.9 and Major depressive disorder, recurrent, unspecified F33.9 [place] [address] [facility] [address] [address] 04/05/2024 Thena David Attention-deficit hyperactivity disorder, unspecified type F90.9 ; Major depressive disorder, recurrent, unspecified F33.9 ; Generalized anxiety disorder F41.1 and Nicotine dependence, unspecified, uncomplicated F17.200 [facility] [place] [address] [facility] [address] [address] 05/10/2024 Thena David Attention-deficit hyperactivity disorder, unspecified type F90.9 ; Generalized anxiety disorder F41.1 ; Nicotine dependence, unspecified, uncomplicated F17.200 and Severe recurrent major depression without psychotic features F33.2 [place] [address] [facility] [address] [address] 06/15/2024 Thena David Major depressive disorder, recurrent, unspecified F33.9 ; Generalized anxiety disorder F41.1 ; Attention-deficit hyperactivity disorder, unspecified type F90.9 and Nicotine dependence, unspecified, uncomplicated F17.200 [facility] [place] [address] [place] [address] 08/24/2024 Thena David Major depressive disorder, recurrent, unspecified F33.9 ; Generalized anxiety disorder F41.1 ; Attention-deficit hyperactivity disorder, unspecified type F90.9 and Nicotine dependence, unspecified, uncomplicated F17.200 [place] [address] [place] [address] 09/21/2024 Thena David Attention-deficit hyperactivity disorder, unspecified type F90.9 ; Major depressive disorder, recurrent, unspecified F33.9 ; Generalized anxiety disorder F41.1 and Nicotine dependence, unspecified, uncomplicated F17.200 [place] [address] [place] [address] 11/02/2024 Jessy Sebastian Major depressive disorder, recurrent, moderate F33.1 ; Generalized anxiety disorder F41.1 ; Attention-deficit hyperactivity disorder, unspecified type F90.9 and Encounter for screening for depression Z13.31 [place] [address] [place] [address] 12/09/2023 Provider Migration [facility], [place] [address] [place] [address] 12/17/2023 Provider Migration [facility], [place] [address] [place] [address] 12/18/2023 Provider Migration [facility], [place] [address] [place] [address] 01/25/2024 Thennemesio David [facility], [place] [address] [place] [address] 01/25/2024 Thena David Major depressive disorder, recurrent, unspecified F33.9 ; Generalized anxiety disorder F41.1 and Attention-deficit hyperactivity disorder, unspecified type F90.9 [place] [address] [place] [address] 01/30/2024 Thena David Attention-deficit hyperactivity disorder, unspecified type F90.9 and Generalized anxiety disorder F41.1 [place] [address] [place] [address] 03/08/2024 Thena David [facility], [place] [address] [place] [address] 03/22/2024 Thena David [facility], [facility] [address] [place] [address] 03/30/2024 Thena David [facility], [facility] [address] [place] [address] 04/02/2024 Thena David Attention-deficit hyperactivity disorder, unspecified type F90.9 [facility], [facility] [address] [place] [address] 04/26/2024 Thena David Major depressive disorder, recurrent, unspecified F33.9 [facility], [facility] [address] [place] [address] 04/26/2024 Thena David Major depressive disorder, recurrent, unspecified F33.9 and Generalized anxiety disorder F41.1 [facility], [facility] [address] [place] [address] 05/05/2024 Thena David Attention-deficit hyperactivity disorder, unspecified type F90.9 [facility], [facility] [address] [place] [address] 06/06/2024 Thena David Attention-deficit hyperactivity disorder, unspecified type F90.9 [facility], [facility] [address] [place] [address] 06/08/2024 Thena David Generalized anxiety disorder F41.1 [facility], [facility] [address] [place] [address] 06/30/2024 Thena David [facility], [facility] [address] [place] [address] 07/26/2024 Thena David Attention-deficit hyperactivity disorder, unspecified type F90.9 ; Generalized anxiety disorder F41.1 ; Major depressive disorder, recurrent, unspecified F33.9 and Nicotine dependence, unspecified, uncomplicated F17.200 [facility], [facility] [address] [place] [address] 07/26/2024 Thena David [facility], [facility] [address] [place] [address] 08/27/2024 Thena David [facility] [address] [facility] [address] [place] [address] 09/17/2024 Thena David Attention-deficit hyperactivity disorder, unspecified type F90.9 and Generalized anxiety disorder F41.1 [facility] [address] [facility] [address] [place] [address] 09/19/2024 Thena David [facility] [address] [facility] [address] [place] [address] 09/20/2024 Thena David Assessments Encounter Date Diagnosis (ICD Code) Assessment Notes Treatment Notes Treatment Clinical Notes Section Notes 01/30/2024 Attention-defici t hyperactivity disorder, unspecified type (ICD-10 - F90.9) 06/15/2024 Major depressive disorder, recurrent, unspecified (ICD-10 - F33.9) 07/26/2024 Attention-defici t hyperactivity disorder, unspecified type (ICD-10 - F90.9) 07/26/2024 Generalized anxiety disorder (ICD-10 - F41.1) 08/24/2024 Major depressive disorder, recurrent, unspecified (ICD-10 - F33.9) 08/24/2024 Generalized anxiety disorder (ICD-10 - F41.1) 09/17/2024 Attention-defici t hyperactivity disorder, unspecified type (ICD-10 - F90.9) 09/21/2024 Major depressive disorder, recurrent, unspecified (ICD-10 - F33.9) 09/21/2024 Attention-defici t hyperactivity disorder, unspecified type (ICD-10 - F90.9) 11/02/2024 Major depressive disorder, recurrent, moderate (ICD-10 - F33.1) 06/15/2024 Generalized anxiety disorder (ICD-10 - F41.1) 05/10/2024 Attention-defici t hyperactivity disorder, unspecified type (ICD-10 - F90.9) 06/06/2024 Attention-defici t hyperactivity disorder, unspecified type (ICD-10 - F90.9) 06/08/2024 Generalized anxiety disorder (ICD-10 - F41.1) 04/05/2024 Attention-defici t hyperactivity disorder, unspecified type (ICD-10 - F90.9) 04/26/2024 Major depressive disorder, recurrent, unspecified (ICD-10 - F33.9) 04/26/2024 Major depressive disorder, recurrent, unspecified (ICD-10 - F33.9) 05/05/2024 Attention-defici t hyperactivity disorder, unspecified type (ICD-10 - F90.9) 01/30/2024 Generalized anxiety disorder (ICD-10 - F41.1) 04/05/2024 Major depressive disorder, recurrent, unspecified (ICD-10 - F33.9) 02/14/2024 Generalized anxiety disorder (ICD-10 - F41.1) 02/14/2024 Attention-defici t hyperactivity disorder, unspecified type (ICD-10 - F90.9) 04/02/2024 Attention-defici t hyperactivity disorder, unspecified type (ICD-10 - F90.9) 11/28/2023 Nicotine dependence, unspecified, uncomplicated (ICD-10 - F17.200) 11/28/2023 Major depressive disorder, recurrent, unspecified (ICD-10 - F33.9) 11/28/2023 Generalized anxiety disorder (ICD-10 - F41.1) 11/28/2023 Attention-defici t hyperactivity disorder, unspecified type (ICD-10 - F90.9) 01/02/2024 Major depressive disorder, recurrent, unspecified (ICD-10 - F33.9) 01/02/2024 Generalized anxiety disorder (ICD-10 - F41.1) 01/25/2024 Major depressive disorder, recurrent, unspecified (ICD-10 - F33.9) 01/25/2024 Generalized anxiety disorder (ICD-10 - F41.1) 01/25/2024 Attention-defici t hyperactivity disorder, unspecified type (ICD-10 - F90.9) 01/02/2024 Attention-defici t hyperactivity disorder, unspecified type (ICD-10 - F90.9) 04/05/2024 Generalized anxiety disorder (ICD-10 - F41.1) 02/14/2024 Major depressive disorder, recurrent, unspecified (ICD-10 - F33.9) 05/10/2024 Generalized anxiety disorder (ICD-10 - F41.1) 04/26/2024 Generalized anxiety disorder (ICD-10 - F41.1) 06/15/2024 Attention-defici t hyperactivity disorder, unspecified type (ICD-10 - F90.9) 11/02/2024 Generalized anxiety disorder (ICD-10 - F41.1) Long-Term Risks of Benzodiazepines Benzodiazepines are commonly prescribed for anxiety, insomnia, and seizures, but their long-term use is associated with several significant risks, particularly in older adults. - Chronic benzodiazepine use can lead to physical and psychological dependence. - Withdrawal symptoms include rebound anxiety, insomnia, agitation, tremors, and, in severe cases, seizures. - Tapering is often required to prevent withdrawal complications. - Long-term use is linked to memory problems, reduced attention, and delayed thinking/reactions . - Some studies suggest an increased risk of dementia, though causality remains debated. - Benzodiazepines cause sedation, impaired coordination, and muscle weakness, significantly increases fall risk. This can be especially dangerous in those on blood thinners and with medical conditions such as osteoporosis - Older adults are particularly vulnerable due to decreased metabolism and clearance of benzodiazepines, leading to prolonged sedation and enhanced adverse effects. - Increased sensitivity to cognitive impairment, delirium, and paradoxical reactions (e.g., agitation, aggression). 09/21/2024 Generalized anxiety disorder (ICD-10 - F41.1) 08/24/2024 Attention-defici t hyperactivity disorder, unspecified type (ICD-10 - F90.9) 09/17/2024 Generalized anxiety disorder (ICD-10 - F41.1) 07/26/2024 Major depressive disorder, recurrent, unspecified (ICD-10 - F33.9) 08/24/2024 Nicotine dependence, unspecified, uncomplicated (ICD-10 - F17.200) 09/21/2024 Nicotine dependence, unspecified, uncomplicated (ICD-10 - F17.200) 11/02/2024 Attention-defici t hyperactivity disorder, unspecified type (ICD-10 - F90.9) 07/26/2024 Nicotine dependence, unspecified, uncomplicated (ICD-10 - F17.200) 06/15/2024 Nicotine dependence, unspecified, uncomplicated (ICD-10 - F17.200) 05/10/2024 Nicotine dependence, unspecified, uncomplicated (ICD-10 - F17.200) 04/05/2024 Nicotine dependence, unspecified, uncomplicated (ICD-10 - F17.200) 01/02/2024 Nicotine dependence, unspecified, uncomplicated (ICD-10 - F17.200) 05/10/2024 Severe recurrent major depression without psychotic features (ICD-10 - F33.2) 11/02/2024 Encounter for screening for depression (ICD-10 - Z13.31) 11/02/2024 Other Zuri Avila, a female patient with a history of ADHD, depression, anxiety, and recent open-heart surgery, presents with increased anxiety and depression, particularly related to recent life events and anniversaries. Major Depressive Disorder and Generalized Anxiety Disorder Assessment: Patient reports increased anxiety and depression, especially this week, which sterling significant anniversaries (8 years since father's , 8 weeks since liver surgery, 8 weeks since quitting smoking). Recent life stressors include job loss and selling mother's house after her passing in May 2023. Current treatment with venlafaxine 300 mg may not be as effective as before. Patient is seeing a therapist every three weeks and denies thoughts of self-harm. Plan: - Continue venlafaxine 300 mg PO daily in the morning - Initiate gradual transition from ziprasidone to Vraylar: Week 1: Start Vraylar 1.5 mg daily, maintain current ziprasidone dose Week 2: Decrease ziprasidone to 20 mg in the morning or 40 mg at bedtime, continue Vraylar 1.5 mg daily Week 3: Maintain reduced ziprasidone dose, increase Vraylar to 3 mg daily Week 4: Reduce ziprasidone to 20 mg in the morning and 20 mg at night, maintain Vraylar 3 mg daily - Follow up in 4 weeks to assess response to medication changes - Continue therapy appointments every 3 weeks Attention Deficit Hyperactivity Disorder (ADHD) Assessment: Patient started Vyvanse in September for ADHD management. Reports that Vyvanse wears off by the afternoon, suggesting potential need for dosage adjustment or extended coverage. Plan: - Continue Vyvanse 70 mg daily - Reassess efficacy and duration of action at follow-up Insomnia Assessment: Patient uses alprazolam 1 mg, one to two tablets at night as needed for sleep. Effectiveness not explicitly discussed. Plan: - Continue alprazolam 1 mg, 1-2 tablets PO at bedtime as needed for sleep - Discuss long-term risks more indepth in future visits. Smoking Cessation Assessment: Patient quit smoking on September 04, coinciding with open-heart surgery. Currently using Chantix to support smoking cessation. Expresses concern about weight gain since quitting. Plan: - Continue Chantix for smoking cessation support Plan Of Treatment Next Appt Details Provider Name:Jessy gunderson, 12/07/2024 04:00:00 PM, [address], [address], [place], [address], Insurance Providers Payer Name Payer Address Payer Phone Subscriber Number Group Number Insured Name Patient Relationship to Insured Coverage Start Date Coverage End Date [employer] Preferred Ppo [address] [place] [address] [id number] ZURI MAX Self - patient is the insured Medical (General) History Medical History History ICD Code Past Psychiatric History: Anxiety Disord er,PTSD,Bipolar Disorder undefined Problems: Attention deficit hyperactivit y disorder Nicotine dependence hypertension: Yes restless leg syndrome: Yes stroke: Yes vitamin B12 deficiency: Yes vitamin D deficiency: Yes chronic fatigue syndrome: Yes Surgical History Surgery Date(Month/Year) Removal of gallbladder (72088) Endometrial ablation (38732) Any surgical history 01/06/2010 Open heart surgery 09/04/2024 gastric bypass
--- OUTSIDE RECORDS SUMMARY | 2024-11-25 12:24 | XMS_ITS | Encounter Summary ---
Author Organization [facility] Healthcare Address [address] [place] [address] Care Team Providers Care Systems Administrator Name Role Phone Perry Boykin MD Primary Care Provider [phone] Dl Phillips MD Unavailable [phone] Severino Aden MD Unavailable [phone] Geovany Wong DO Primary Care Provider [phone] Talya Boucher MD Unavailable [phone] Qasim Ross MD Unavailable Encounter Details Date Type Department Care Team (Late st Contact Info) Description 07/23/2024 Orders Only [facility] Health Information Management [address] [place] [id number] Qasim Ross MD [address] [place] [address] Social History Tobacco Use Types Packs/Day [...] on file Legal Sex Female 2:03 AM [employer] Gender Identity Not on file Sexual Orientation [...] on filedocumented in this encounter Care Teams Systems Administrator Relationship Specialty Start Date End Date Perry Boykin MD [address] [place] [address] PCP - General 10/29/16 09/05/24 Geovany Wong DO [address] [place] [address] PCP - General Internal Medicine 09/06/24 Dl Phillips MD [address] [place] [address] Referring Physician Cardiology 12/23/22 Severino Aden MD [address] [place] [address] Consulting Physician Cardiothoracic Surgery 12/23/22 Talya Boucher MD [id number] [place] [address] Surgeon Cardiothoracic Surgery 09/08/24 Qasim Ross MD [address] [address] Consulting Physician Cardiology 09/08/24 documented as of this encounter
--- OUTSIDE RECORDS SUMMARY | 2024-11-25 12:24 | XMS_ITS | Clinical Summary ---
Author Organization [facility] [place] [address] Address [address] [place] [address] Care Team Providers Care Corporate Law Specialist Name Role Phone Dl Phillips MD Unavailable [phone] Severino Aden MD Unavailable [phone] Geovany Wong DO Primary Care Provider [phone] Talya Boucher MD Unavailable [phone] Qasim Ross MD Unavailable Allergies Active Allergy Reactions Criticality Noted Date Comments Carbamazepine Unknown 01/13/2023 Latex Swelling Medium 05/03/2022 Penicillins Other (See comments) Low 04/09/2016 Yeast infections Medications ziprasidone (GEODON) 20 mg capsuleIndications :Depression associated with Bipolar Disorder 1 capsule (20 mg total) 2 (two) times a day with meals TAKE 20 MG IN THE MORNING AND 80 MG IN THE EVENING 07/30/20 21 Active ALPRAZolam (XANAX) 1 mg tablet 2 tablets (2 mg total) nightly 2 10/21/19 23 Active ramipriL (ALTACE) 10 mg capsuleIndications :hypertension Take 1 capsule (10 mg total) by mouth daily Active Vyvanse 70 mg capsuleIndications :Attention-Deficit Hyperactivity Disorder 11/26/19 23 Active venlafaxine XR (EFFEXOR-XR) 150 mg 24 hr capsuleIndications :major depressive disorder 2 capsules (300 mg total) daily 10/22/19 23 Active multivitamin capsuleIndications :Vitamin Deficiency Prevention Take 1 capsule by mouth daily Active pravastatin (PRAVACHOL) 40 mg tabletIndications: hyperlipidemia Take 1 tablet (40 mg total) by mouth daily 90 tablet 3 07/03/20 24 2024 Active varenicline tartrate (CHANTIX) 1 mg tabletIndications: Smoking Cessation Take 1 tablet (1 mg total) by mouth 2 (two) times a day 60 tablet 11 07/03/20 24 2024 Active ziprasidone (GEODON) 80 mg capsuleIndications :Depression associated with Bipolar Disorder TAKE 1 CAPSULE BY MOUTH WITH FOOD NIGHTLY FOR 90 DAYS 07/10/20 Active acetaminophen 500 mg capsuleIndications :Pain Take 2 capsules (1,000 mg total) by mouth every 6 (six) hours 09/08/19 Active aspirin 81 mg enteric coated tablet Take 1 tablet (81 mg total) by mouth daily 30 tablet 1 09/09/19 25 Active furosemide (LASIX) 40 mg tablet Take 1 tablet (40 mg total) by mouth daily for 5 days 5 tablet 09/08/19 25 Active Additional Information Patient not taking.Reported on 09/25/2024 metoprolol tartrate (LOPRESSOR) 25 mg immediate release tablet Take 0.5 tablets (12.5 mg total) by mouth 2 (two) times a day 30 tablet 1 09/08/19 25 Active polyethylene glycol (MIRALAX) 17 gram/dose bulk powderIndications: constipation Take 17 g by mouth daily 09/08/19 25 Active Additional Information Patient not taking.Reported on 09/25/2024 potassium chloride ER (KLOR-CON) 20 mEq CR tabletIndications: decreased potassium absorption Take 1 tablet (20 mEq total) by mouth daily for 5 days 5 tablet 09/08/19 25 Active Additional Information Patient not taking.Reported on 09/25/2024 senna-docusate (PERICOLACE) 8.6-50 mgIndications:cons tipation Take 1 tablet by mouth daily for 7 days 7 tablet 09/08/19 25 Active Additional Information Patient not taking.Reported on 09/25/2024 warfarin (COUMADIN) 2 mg tabletIndications: Mechanical Valve Thromboembolism Prophylaxis Take 0.5 tablets (1 mg total) by mouth daily 15 tablet 1 09/08/19 25 Active Additional Information Patient not taking.Reported on 09/25/2024 gabapentin (NEURONTIN) 300 mg capsuleIndications :Postoperative Acute Pain Take 1 capsule (300 mg total) by mouth 3 (three) times a day for 14 days 42 capsule 09/10/19 Active Additional Information Patient not taking.Reported on 09/25/2024 warfarin (COUMADIN) 2 mg tabletIndications: VTE Prophylaxis Following Ortho Surgery Take 2 mg by mouth daily. PT TO TAKE 4MG ON 09/11/24 THEN 2MG DAILY UNTIL INR RECHECKED Indications: VTE Prophylaxis Following Ortho Surgery 09/11/19 Active warfarin (COUMADIN) 2 mg tabletIndications: Mechanical Valve Thromboembolism Prophylaxis,valve replacement Take 2 tablets by mouth daily. take 4mg daily Indications: Mechanical Valve Thromboembolism Prophylaxis, valve replacement 09/14/19 Active traMADoL (ULTRAM) 50 mg tablet Take 1 tablet (50 mg total) by mouth every 6 (six) hours as needed for pain for up to 14 days 28 tablet 1 09/18/19 Active warfarin (COUMADIN) 2 mg tablet Take 2.5 tablets (5 mg total) by mouth daily 75 tablet 11 09/18/19 25 2025 Active Additional Information Patient not taking.Reported on 09/25/2024 naloxone (NARCAN) 4 mg/actuation spray,non-aerosol Administer 1 spray into affected nostril(s) as needed for opioid reversal or respiratory depression Call 911. Administer a single spray in one nostril. Repeat every 3 minutes as needed if no or minimal response. 1 each 1 09/18/19 Active omeprazole (PriLOSEC) 40 mg capsule Take 1 capsule (40 mg total) by mouth daily 09/21/19 Active Active Problems Problem Noted Date Diagnosed Date H/O mechanical aortic valve replacement 09/25/19 25 Aortic stenosis, severe 09/04/2024 Aortic regurgitation due to bicuspid aortic valv e 09/04/2024 Attention deficit hyperactivity disorder 025 Generalized anxiety disorder 08/17/2024 Recurrent major depression 08/17/2024 Severe recurrent major depre ssion without psychotic features 08/17/2024 Aortic valve stenosis 08/16/2024 Morbid (severe) obesity due to excess calories 1 Body mass index 40.0-44.9, adult ([facility]) 05/13 Congenital bicuspid aortic valve 02/17/2023 [...] needed. This was a telemedicine visit with Elmo Austin Ellis which took place via tele doc During the visit, I was located in my office and the patient was located at home in the [facility]. The patient visit started at 10:15 a.m. and ended at 10:20 a.m.. The patient has been informed that the visit may not be secure and acknowledged the information. I have explained the option of participating in a telephone or video visit during the [facility] emergency to the patient. After being given an opportunity to ask questions about and discuss this type of visit, the patient verbally consented to proceeding with the telephone/video visit. The patient understands that this service replaces an office visit and they may be billed and/or responsible for any applicable copayments. Aelx Murray MD I have explained the option of participating in a telephone or video visit during the [facility]-[address] [place] [address] emergency to the patient. After being given an opportunity to ask questions about and discuss this type of visit, the patient verbally consented to proceeding with the telephone/video visit. The patient understands that this service replaces an office visit and they may be billed and/or responsible for any applicable copayments. @SIGENC2@ @[place]@ Assessment & Plan (10/15/2021 8:38 AM CDT): [...] the records for a blood work from [facility] accordingly. She does not have any personal [...] the records for a blood work from [facility] accordingly. She does not have any personal [...] Department Care Team Description 10/04/2024 2:00 PM PASTORAL COUNSELOR Office Visit [facility] Surgery [address] [place] [address] [address] [place] [phone] Leeann Odom NP S/P AVR (aortic valve replacement) (Primary Dx) 09/26/2024 8:00 AM PASTORAL COUNSELOR Home Care Visit [facility] [address] [place] [address] Jaclyn Nava RN SN NON OASIS DISCHARGE 09/26/2024 Orders Only [facility] Surgery [address] [place] [address] [address] [place] [address] Cynthia Haley NP 09/26/2024 Documentation [facility] Surgery [address] [place] [address] [address] [place] [address] Cynthia Haley NP Anticoagulation 09/26/[address] [place] [address] Leeann Odom NP RTW Form 09/26/2024 Orders Only [facility] Surgery [address] [place] [address] [address] [place] [address] Leeann Odom NP H/O heart valve replacement with mechanical valve (Primary Dx) 09/25/2024 10:30 AM PASTORAL COUNSELOR Office Visit [facility] Cardiology [address] [address] [address] [place] [address] Qasim Ross MD H/O mechanical aortic valve replacement (Primary Dx) 09/25/2024 Orders Only [facility] Cardiology [address] [place] [address] [address] [place] [phone] Qasim Ross MD 09/25/2024 Telephone [facility] Cardiology [address] [place] [address] [address] [place] [phone] Qasim Ross MD 09/24/2024 Orders Only [facility] Surgery [address] [place] [address] [address] [place] [address] Cynthia Haley NP 09/21/2024 10:00 AM PASTORAL COUNSELOR Home Care Visit [address] [place] [phone] Jaclyn Nava RN SN HOME VISIT 09/21/2024 Documentation [facility] Surgery [address] [place] [address] [address] [place] [address] Leeann Odom NP INR Management 09/18/2024 9:00 AM PASTORAL COUNSELOR Home Care Visit [address] [place] [address] Jaclyn Nava RN SN HOME VISIT 09/18/2024 Documentation [facility] Surgery [address] [place] [address] [address] [place] [address] Leeann Odom NP 09/14/2024 11:10 AM PASTORAL COUNSELOR - 09/14/2024 11:59 PM PASTORAL COUNSELOR Hospital Encounter [address] [address] Discharge Disposition: Discharge to home or self care 09/14/2024 9:00 AM PASTORAL COUNSELOR Home Care Visit [address] [place] [phone] Jess Aguirre RN SN HOME VISIT 09/14/2024 Anticoagulation Telephone Call [address] [place] [address] Joey Oconnor NP 09/14/2024 Documentation [facility] Surgery [address] [place] [address] [address] [place] [address] Cynthia Haley NP Anticoagulation 09/13/2024 5:00 PM PASTORAL COUNSELOR Ancillary Procedure [facility] Medical Group Imaging at [address] [phone] Left shoulder pain, unspecified chronicity 09/13/2024 4:45 PM PASTORAL COUNSELOR Ancillary Procedure [facility] Medical Group Imaging at [address] [phone] Aortic stenosis due to bicuspid aortic valve 09/13/2024 Orders Only [facility] Surgery [address] [place] [address] [place] [phone] Cynthai Haley NP Aortic stenosis due to bicuspid aortic valve (Primary Dx); Left shoulder pain, unspecified chronicity 09/11/2024 11:00 AM PASTORAL COUNSELOR Home Care Visit [address] [place] [phone] Kevin Glover RN SN NON OASIS START OF CARE 09/11/2024 [facility] Post Discharge Follow up phone call [address] [address] Shagufta Ureña RN 09/11/2024 Documentation [facility] Surgery [address] [place] [address] [address] [place] [phone] Cynthia Haley NP Anticoagulation 09/11/2024 Plan of Care Documentation [facility] [address] [facility] [address] [place] [address] 09/10/[address] [facility] Home Care Services [address] [place] [address] Naga Devi MA 09/10/2024 Orders Only [facility] Surgery [address] [place] [address] [address] [place] [address] Cynthia Haley NP 09/08/2024 Home Care Visit [address] [place] [address] Katy Clark RN SN TRIAGE ENCOUNTER 09/04/2024 7:35 AM PASTORAL COUNSELOR Anesthesia Event [facility] Operating Room [address] [place] [address] Augie Gannon MD Ware, Melita C., NP 09/04/2024 7:30 AM PASTORAL COUNSELOR - 09/04/2024 1:00 PM PASTORAL COUNSELOR Surgery [facility] Operating Room [address] [place] [address] Talya Boucher MD REPLACEMENT AORTIC VALVE/270MIN 09/04/2024 5:32 AM PASTORAL COUNSELOR - 09/08/2024 5:00 PM PASTORAL COUNSELOR Hospital Encounter [facility] [id number] [place] [address] Talya Boucher MD Aortic stenosis, severe (Primary Dx); Aortic valve stenosis, etiology of cardiac valve disease unspecified; Aortic regurgitation due to bicuspid aortic valve Discharge Disposition: Discharge to home, home health skilled care from Last 3 Months Immunizations Immunization Administration [...] of breath DVT (deep venous thrombosis) (HCC) 2016 Pulmonary embolism (HCC) Anxiety Arthritis Depression Migraines Hypertension Stroke ([facility]) Kidney stone Menstrual problem Aortic stenosis 01/13/2023 [...] experiencing loneliness or isolatio n Never 09/11/2024 [facility] Utilities Answer Date Recorded In the past 12 months has th e electric, gas, oil, or water company [...] often do you attend chur ch or faith services? Never 09/06/2024 Do you belong to any clubs o r organizations such as worship groups, unions, fraternal or athletic groups, or [...] any time in the past [address] [facility], were you homeless or living in a [place] [facility] [place] facility (including now)? No 09/06/2024 Personal Safety Answer Date Recorded Have you ever been in or are you currently in a harmful physical or emotional relationship or is someone making you feel afraid or unsafe? Denies 09/04/2024 Comments Unknown Sex and Gender Information Value Date Recorded Sex Assigned at Not on file Legal Sex Female 2:03 AM PASTORAL COUNSELOR Gender Identity Not on file Sexual Orientation Not on file Obstetrics History Last Filed Vital Signs Vital Sign Reading Time Taken Comments Blood Pressure 127/74 10/04/2024 2:21 PM PASTORAL COUNSELOR Pulse 80 10/04/2024 2:21 PM PASTORAL COUNSELOR Temperature 36.5 C (97.7 F) 09/26/2024 8:47 AM PASTORAL COUNSELOR Respiratory Rate 14 10/04/2024 2:21 PM PASTORAL COUNSELOR Oxygen Saturation 98% 10/04/2024 2:21 PM PASTORAL COUNSELOR Inhaled Oxygen Concentration - - Weight 106.1 kg (234 lb) 10/04/2024 2:21 PM PASTORAL COUNSELOR Height 162.6 cm (5' 4 ) 10/04/2024 2:21 PM PASTORAL COUNSELOR Body Mass Index 40.17 10/04/2024 2:21 PM PASTORAL COUNSELOR Plan of Treatment Health Maintenance Due Date [...] history exists Medical Devices Implanted Type Area [employer] Lead Device Identifier Shelf Expiration Date Model / Serial / Lot [employer] Plate Bone Low Profile 6 Hole H Shape Sternum Ti 115.102.06 - [id number] Implanted:Qt y: 1 on 09/04/2024 by Talya Boucher MD at [facility] Plate N/A: Sternum [employer] 115.102.0 6 / / [employer] Plate Bone Low Profile 4 Hole Box Sternum Ti 115.103.04 - [id number] Implanted:Qt y: 1 on 09/04/2024 by Talya Boucher MD at [facility] Plate N/A: Sternum [employer] 115.103.0 4 / / [employer] Plate Bone Low Profile 6 Hole O Shape Sternum Ti 115.104.06 - [id number] Implanted:Qt y: 1 on 09/04/2024 by Talya Boucher MD at [facility] Plate N/A: Sternum [employer] 115.104.0 6 / / [employer] Master-Serie s 23mm 18.6mm Cuff Leaflet Open Control Torque 23aj-501 - [id number] - [id number] Implanted:Qt y: 1 on 09/04/2024 by Talya Boucher MD at [facility] Prosthetic Valve N/A: Aortic Valve [employer] 02/26/2026 23AJ-501 / [id number] / 00 [employer] Screw Bone Slf Drl Full Thread Locking 3.5x14mm Ti 100.035.14 - [id number] Implanted:Qt y: 10 on 09/04/2024 by Talya Boucher MD at [facility] Screw N/A: Sternum [employer] 100.035.1 4 / / [employer] Screw Bone Slf Drl Full Thread Locking 3.5x16mm Ti 100.035.16 - [id number] Implanted:Qt y: 6 on 09/04/2024 by Talya Boucher MD at [facility] Screw N/A: Sternum [employer] 100.035.1 6 / / Procedures Procedure Name Priority Date/Time Associated Diagnosis Comments PROTIME-INR Routine 10/31/2024 6:06 AM CDT H/O heart valve replacement with mechanical valve PROTIME-INR Routine 10/03/2024 6:38 AM PASTORAL COUNSELOR H/O heart valve replacement with mechanical valve POCT PROTHROMBIN TIME/INR Routine 09/26/2024 8:41 AM PASTORAL COUNSELOR POCT PROTHROMBIN TIME/INR Routine 09/21/2024 10:24 AM PASTORAL COUNSELOR POCT PROTHROMBIN TIME/INR Routine 09/18/2024 9:04 AM PASTORAL COUNSELOR POCT PROTHROMBIN TIME/INR Routine 09/14/2024 11:31 AM PASTORAL COUNSELOR EGFR Routine 09/14/2024 11:10 AM PASTORAL COUNSELOR DIFFERENTIAL AUTO Routine 09/14/2024 11:10 AM PASTORAL COUNSELOR CBC WITH AUTO DIFFERENTIAL Routine 09/14/2024 11:10 AM PASTORAL COUNSELOR COMPREHENSIVE METABOLIC PANEL Routine 09/14/2024 11:10 AM PASTORAL COUNSELOR XR SHOULDER LEFT 2 OR MORE VIEWS Schedule Routine, Read Routine (OP Routine) 09/13/2024 4:37 PM PASTORAL COUNSELOR Left shoulder pain, unspecified chronicity XR CHEST PA LATERAL 2 VIEWS Schedule Routine, Read Routine (OP Routine) 09/13/2024 4:28 PM PASTORAL COUNSELOR Aortic stenosis due to bicuspid aortic valve POCT PROTHROMBIN TIME/INR Routine 09/11/2024 11:59 AM PASTORAL COUNSELOR TRANSTHORACIC ECHO (TTE) COMPLETE W DOPPLER/CF WO CONTRAST STAT 09/08/2024 5:45 PM PASTORAL COUNSELOR XR CHEST 1 VIEW IP Routine 09/08/2024 6:17 AM PASTORAL COUNSELOR EGFR Routine 09/08/2024 4:43 AM PASTORAL COUNSELOR BASIC METABOLIC PANEL Routine 09/08/2024 4:43 AM PASTORAL COUNSELOR CBC WITHOUT DIFFERENTIAL Routine 09/08/2024 4:43 AM PASTORAL COUNSELOR PROTIME-INR Routine 09/08/2024 4:43 AM PASTORAL COUNSELOR XR CHEST 1 VIEW IP Routine 09/07/2024 5:30 AM PASTORAL COUNSELOR EGFR Routine 09/07/2024 4:49 AM PASTORAL COUNSELOR BASIC METABOLIC PANEL Routine 09/07/2024 4:49 AM PASTORAL COUNSELOR CBC WITHOUT DIFFERENTIAL Routine 09/07/2024 4:49 AM PASTORAL COUNSELOR PROTIME-INR Routine 09/07/2024 4:49 AM PASTORAL COUNSELOR APTT STAT 09/06/2024 2:10 PM PASTORAL COUNSELOR PROTIME-INR STAT 09/06/2024 2:10 PM PASTORAL COUNSELOR EGFR Timed 09/06/2024 12:52 PM PASTORAL COUNSELOR MAGNESIUM Timed 09/06/2024 12:52 PM PASTORAL COUNSELOR CALCIUM,IONIZED, WHOLE BLOOD Timed 09/06/2024 12:52 PM PASTORAL COUNSELOR RENAL FUNCTION PANEL Timed 09/06/2024 12:52 PM PASTORAL COUNSELOR POCT GLUCOSE DEVICE Routine 09/06/2024 11:55 AM PASTORAL COUNSELOR POCT GLUCOSE DEVICE Routine 09/06/2024 7 :33 AM PASTORAL COUNSELOR CRITICAL CARE Routine 09/06/2024 7:00 AM PASTORAL COUNSELOR Aortic regurgitation due to bicuspid aortic valve XR CHEST 1 VIEW IP Routine 09/06/2024 5:34 AM PASTORAL COUNSELOR EGFR Routine 09/06/2024 3:28 AM PASTORAL COUNSELOR CBC WITHOUT DIFFERENTIAL Routine 09/06/2024 3:28 AM PASTORAL COUNSELOR MAGNESIUM Routine 09/06/2024 3:28 AM PASTORAL COUNSELOR BASIC METABOLIC PANEL Routine 09/06/2024 3:28 AM PASTORAL COUNSELOR PHOSPHORUS Routine 09/06/2024 3:28 AM PASTORAL COUNSELOR POCT GLUCOSE DEVICE Routine 09/05/2024 9 :00 PM PASTORAL COUNSELOR POCT GLUCOSE DEVICE Routine 09/05/2024 5 :08 PM PASTORAL COUNSELOR EGFR STAT 09/05/2024 3:29 PM PASTORAL COUNSELOR MAGNESIUM STAT 09/05/2024 3:29 PM PASTORAL COUNSELOR BASIC METABOLIC PANEL STAT 09/05/2024 3:29 PM PASTORAL COUNSELOR CBC WITHOUT DIFFERENTIAL STAT 09/05/2024 3:29 PM PASTORAL COUNSELOR CALCIUM,IONIZED, WHOLE BLOOD STAT 09/05/2024 3:25 PM PASTORAL COUNSELOR POCT GLUCOSE DEVICE Routine 09/05/2024 12:46 PM PASTORAL COUNSELOR ECG 12-LEAD STAT 09/05/2024 8:41 AM PASTORAL COUNSELOR CBC WITHOUT DIFFERENTIAL STAT 09/05/2024 7:51 AM PASTORAL COUNSELOR APTT STAT 09/05/2024 7:47 AM PASTORAL COUNSELOR PROTIME-INR STAT 09/05/2024 7:47 AM PASTORAL COUNSELOR CRITICAL CARE Routine 09/05/2024 7:05 AM PASTORAL COUNSELOR Aortic regurgitation due to bicuspid aortic valve POCT GLUCOSE DEVICE Routine 09/05/2024 7 :05 AM PASTORAL COUNSELOR XR CHEST 1 VIEW IP Routine 09/05/2024 5:47 AM PASTORAL COUNSELOR T3, FREE Routine 09/05/2024 3:49 AM PASTORAL COUNSELOR EGFR Routine 09/05/2024 3:49 AM PASTORAL COUNSELOR T4, FREE Routine 09/05/2024 3:49 AM PASTORAL COUNSELOR DIFFERENTIAL AUTO Routine 09/05/2024 3:4 9 AM PASTORAL COUNSELOR HEMOGLOBIN A1C Routine 09/05/2024 3:49 AM PASTORAL COUNSELOR THYROID FUNCTION CASCADE Routine 09/05/2024 3:49 AM PASTORAL COUNSELOR LIPID PANEL Routine 09/05/2024 3:49 AM PASTORAL COUNSELOR OXYHEMOGLOBIN, PULMONARY ARTERY Routine 09/05/2024 3:49 AM PASTORAL COUNSELOR PHOSPHORUS Routine 09/05/2024 3:49 AM PASTORAL COUNSELOR MAGNESIUM Routine 09/05/2024 3:49 AM PASTORAL COUNSELOR BASIC METABOLIC PANEL Routine 09/05/2024 3:49 AM PASTORAL COUNSELOR CBC WITH AUTO DIFFERENTIAL Routine 09/05/2024 3:49 AM PASTORAL COUNSELOR POCT GLUCOSE DEVICE Routine 09/05/2024 2 :19 AM PASTORAL COUNSELOR CRITICAL CARE Routine 09/04/2024 11:38 PM PASTORAL COUNSELOR Aortic regurgitation due to bicuspid aortic valve POCT GLUCOSE DEVICE Routine 09/04/2024 9 :48 PM PASTORAL COUNSELOR POCT GLUCOSE DEVICE Routine 09/04/2024 8 :41 PM PASTORAL COUNSELOR POCT GLUCOSE DEVICE Routine 09/04/2024 7 :16 PM PASTORAL COUNSELOR BLOOD GAS, ARTERIAL Timed 09/04/2024 6 :16 PM PASTORAL COUNSELOR POCT GLUCOSE DEVICE Routine 09/04/2024 6 :13 PM PASTORAL COUNSELOR EGFR STAT 09/04/2024 5:25 PM PASTORAL COUNSELOR CALCIUM,IONIZED, WHOLE BLOOD STAT 09/04/2024 5:25 PM PASTORAL COUNSELOR PHOSPHORUS STAT 09/04/2024 5:25 PM PASTORAL COUNSELOR MAGNESIUM STAT 09/04/2024 5:25 PM PASTORAL COUNSELOR BASIC METABOLIC PANEL STAT 09/04/2024 5:25 PM PASTORAL COUNSELOR CBC WITHOUT DIFFERENTIAL Timed 09/04/2024 5:25 PM PASTORAL COUNSELOR BLOOD GAS, ARTERIAL Timed 09/04/2024 5 :25 PM PASTORAL COUNSELOR POCT GLUCOSE DEVICE Routine 09/04/2024 5 :06 PM PASTORAL COUNSELOR POCT GLUCOSE DEVICE Routine 09/04/2024 3 :55 PM PASTORAL COUNSELOR BLOOD CULTURE Routine 09/04/2024 3:42 PM PASTORAL COUNSELOR BLOOD CULTURE Routine 09/04/2024 3:42 PM PASTORAL COUNSELOR CALCIUM,IONIZED, WHOLE BLOOD STAT 09/04/2024 3:21 PM PASTORAL COUNSELOR BLOOD GAS, ARTERIAL STAT 09/04/2024 3 :21 PM PASTORAL COUNSELOR POCT GLUCOSE DEVICE Routine 09/04/2024 2 :48 PM PASTORAL COUNSELOR POCT GLUCOSE DEVICE Routine 09/04/2024 1 :49 PM PASTORAL COUNSELOR CRITICAL CARE Routine 09/04/2024 1:12 PM PASTORAL COUNSELOR Aortic regurgitation due to bicuspid aortic valve XR CHEST 1 VIEW Critical/Life-T hreatening 09/04/2024 12:57 PM PASTORAL COUNSELOR SURGICAL PATHOLOGY Routine 09/04/2024 12:35 PM PASTORAL COUNSELOR Aortic valve stenosis, etiology of cardiac valve disease unspecified PHOSPHORUS Add-On 09/04/2024 12:27 PM PASTORAL COUNSELOR MAGNESIUM Add-On 09/04/2024 12:27 PM PASTORAL COUNSELOR EGFR STAT 09/04/2024 12:27 PM PASTORAL COUNSELOR APTT STAT 09/04/2024 12:27 PM PASTORAL COUNSELOR PROTIME-INR STAT 09/04/2024 12:27 PM PASTORAL COUNSELOR CBC WITHOUT DIFFERENTIAL Timed 09/04/2024 12:27 PM PASTORAL COUNSELOR BLOOD GAS, ARTERIAL Timed 09/04/2024 12:27 PM PASTORAL COUNSELOR BASIC METABOLIC PANEL STAT 09/04/2024 12:27 PM PASTORAL COUNSELOR PHOSPHORUS Add-On 09/04/2024 12:27 PM PASTORAL COUNSELOR POCT GLUCOSE DEVICE Routine 09/04/2024 11:55 AM PASTORAL COUNSELOR POC BLOOD GAS AND CHEMISTRIES, ARTERIAL Routine 09/04/2024 11:04 AM PASTORAL COUNSELOR POCT ACTIVATED CLOTTING TIME, HIGH RANGE Routine 09/04/2024 11:00 AM PASTORAL COUNSELOR POC BLOOD GAS AND CHEMISTRIES, ARTERIAL Routine 09/04/2024 10:20 AM PASTORAL COUNSELOR POCT ACTIVATED CLOTTING TIME, HIGH RANGE Routine 09/04/2024 10:19 AM PASTORAL COUNSELOR POC BLOOD GAS AND CHEMISTRIES, ARTERIAL Routine 09/04/2024 9:57 AM PASTORAL COUNSELOR PLATELET COUNT STAT 09/04/2024 9:56 AM PASTORAL COUNSELOR POC BLOOD GAS AND CHEMISTRIES, ARTERIAL Routine 09/04/2024 9:55 AM PASTORAL COUNSELOR POCT ACTIVATED CLOTTING TIME, HIGH RANGE Routine 09/04/2024 9:54 AM PASTORAL COUNSELOR POC BLOOD GAS AND CHEMISTRIES, ARTERIAL Routine 09/04/2024 9:19 AM PASTORAL COUNSELOR POCT ACTIVATED CLOTTING TIME, HIGH RANGE Routine 09/04/2024 9:18 AM PASTORAL COUNSELOR ANESTHESIA CENTRAL VENOUS LINE PLACEMENT Routine 09/04/2024 9:15 AM PASTORAL COUNSELOR ANESTHESIA CENTRAL VENOUS LINE PLACEMENT Routine 09/04/2024 9:[address] AN ELECTIVE ENDOTRACHEAL AIRWAY Routine 09/04/2024 9:14 AM PASTORAL COUNSELOR ANESTHESIA ARTERIAL LINE PLACEMENT Routine 09/04/2024 9:13 AM PASTORAL COUNSELOR POCT ACTIVATED CLOTTING TIME, HIGH RANGE Routine 09/04/2024 8:53 AM PASTORAL COUNSELOR ANESTHESIA SCOTTY Routine 09/04/2024 8:28 AM PASTORAL COUNSELOR POC BLOOD GAS AND CHEMISTRIES, ARTERIAL Routine 09/04/2024 8:21 AM PASTORAL COUNSELOR POCT ACTIVATED CLOTTING TIME, HIGH RANGE Routine 09/04/2024 8:18 AM PASTORAL COUNSELOR REPLACEMENT AORTIC VALVE 09/04/2024 7:35 AM PASTORAL COUNSELOR Aortic valve stenosis, etiology of cardiac valve disease unspecified B CHECK SAMPLE STAT 09/04/2024 6:51 AM PASTORAL COUNSELOR POCT HCG, URINE Routine 09/04/2024 6:30 AM PASTORAL COUNSELOR PREPARE RBC STAT 09/04/2024 5:35 AM PASTORAL COUNSELOR from Last 3 Months Results * (ABNORMAL) Protime-INR (10/31/2024 6:06 AM CDT) INR 3.4(H) [facility] Comment: Reference Range 0.9-1.1 Moderate-intensity Warfarin Therapy 2.0-3.0 Higher-intensity Warfarin Therapy 3.0-4.0 PT 33.8(H) 9.0 - 11.5 sec [facility] Comment: For additional information, please refer to http://education.Toptal/faq/DNF534 (This link is being provided for informational/ educational purposes only.) Blood 10/31/2024 6:06 AM CDT 10/31/2024 6:06 AM CDT us Leeann Odom NP LAB BLOOD ORDERABLES Chloé bonilla Result [facility] [address] [place] [address] * (ABNORMAL) Protime-INR (10/03/2024 6:38 AM PASTORAL COUNSELOR) INR 3.2(H) [facility] Comment: Reference Range 0.9-1.1 Moderate-intensity Warfarin Therapy 2.0-3.0 Higher-intensity Warfarin Therapy 3.0-4.0 PT 32.0(H) 9.0 - 11.5 sec [facility] Comment: For additional information, please refer to http://education.Toptal/faq/DEU264 (This link is being provided for informational/ educational purposes only.) Blood 10/03/2024 6:38 AM PASTORAL COUNSELOR 10/03/2024 6:39 AM PASTORAL COUNSELOR Leeann Odom [employer]ATING [employer]ER LAB BLOOD ORDERABLES Chloé l Result Performing Organization Address [facility]/ZIP Co de Phone Number [facility] [address] [place] [address] * POCT PT/INR (09/26/2024 8:41 AM PASTORAL COUNSELOR) INR, POC 3.30 HH [facility] Comment:repeat INR on 10/03 at [facility] in [place] Blood 09/26/2024 8:41 AM PASTORAL COUNSELOR Cynthia Haley NP POINT OF CARE TEST ORDERAB LES Final Result Performing Organization Address City/[facility] Co de Phone Number [facility] * POCT PT/INR (09/21/2024 10:24 AM PASTORAL COUNSELOR) INR, POC 3.80 HH [facility] Blood 09/21/2024 10:2 4 AM PASTORAL COUNSELOR Talya Boucher MD POINT OF CARE TEST ORDERABLES Final Result Performing Organization Address City/[facility]/ZIP Co de Phone Number [facility] * POCT PT/INR (09/18/2024 9:04 AM PASTORAL COUNSELOR) INR, POC 3.10 HH [facility]ULTING [facility] Blood 09/18/2024 9:04 AM PASTORAL COUNSELOR Cynthia Haley [employer]ER POINT OF CARE TEST ORDERAB LES Final Result Performing Organization Address [facility] de Phone Number [facility] * POCT PT/INR (09/14/2024 11:31 AM PASTORAL COUNSELOR) INR, POC 1.80 HH PO[facility] RESULTING LABORATORY Blood 09/14/2024 11:3 1 AM PASTORAL COUNSELOR Cynthia Haley [employer] POINT OF CARE TEST ORDERAB LES Final Result Performing Organization Address [facility] Phone Number POCT RESULTING LABORAT[facility] * eGFR (09/14/2024 11:10 AM PASTORAL COUNSELOR) eGFR 70 >=60 mL/min/1. 73 m2 Comment: [...] reviewed 2021. Blood 09/14/2024 11:1 0 AM PASTORAL COUNSELOR 09/14/2024 4:43 PM PASTORAL COUNSELOR Cynthia Haley [employer] LAB BLOOD ORDERABLES Final Result Performing Organization Address [facility]/State/ZIP Co de Phone Number NICOLE [facility] Department [place] [address] * Differential, auto (09/14/2024 11:10 AM PASTORAL COUNSELOR) Neutrophil abs 6.4 1.5 - 6.5 K/cumm Imm gran abs 0.1 0.0 - 0.1 K/cumm [facility] Lymphocyte abs 1.8 0.8 - 3.3 K/cumm [facility] Monocyte abs 0.6 0.2 - 0.8 K/cumm [facility] Eosinophil abs 0.0 0.0 - 0.5 K/cumm [facility] Basophil abs 0.1 0.0 - 0.1 K/cumm [facility] Neutrophil pct 71.4 % [facility] Comment: Interpretive Data Percent cell count reference ranges are not reported, since discordance with absolute values may lead to misinterpretation of CBC data. Current Interpretive Data was last revised on 2017. Imm gran pct 0.8 % [facility] Comment: Interpretive Data Percent cell count reference ranges are not reported, since discordance with absolute values may lead to misinterpretation of CBC data. Current Interpretive Data was last revised on 2017. Lymphocyte pct 19.7 % [facility] Comment: Interpretive Data Percent cell count reference ranges are not reported, since discordance with absolute values may lead to misinterpretation of CBC data. Current Interpretive Data was last revised on 2017. Monocyte pct 7.2 % [facility] Comment: Interpretive Data Percent cell count reference ranges are not reported, since discordance with absolute values may lead to misinterpretation of CBC data. Current Interpretive Data was last revised on 2017. Eosinophil pct 0.2 % [facility] Comment: Interpretive Data Percent cell count reference ranges are not reported, since discordance with absolute values may lead to misinterpretation of CBC data. Current Interpretive Data was last revised on 2017. Basophil pct 0.7 % [facility] Comment: Interpretive Data Percent cell count reference ranges are not reported, since discordance with absolute values may lead to misinterpretation of CBC data. Current Interpretive Data was last revised on 2017. Blood 09/14/2024 11:1 0 AM PASTORAL COUNSELOR 09/14/2024 4:20 PM PASTORAL COUNSELOR Cynthia Haley [employer] LAB BLOOD ORDERABLES Final Result [facility] [place] [address] * CBC with auto differential (09/14/2024 11:10 AM PASTORAL COUNSELOR) WBC 8.9 3.8 - 9.9 K/cumm Hgb 11.9 11.9 - 15.5 g/dL [facility] Hct 35.8 35.6 - 45.5 % [facility] Plt 393 150 - 400 K/cumm [facility] MPV 10.3 9.1 - 12.3 fL [facility] RBC 4.13 3.90 - 5.20 M/cumm [facility] MCV 86.7 81.3 - 96.4 fL [facility] MCH 28.8 27.1 - 33.3 pg [facility] MCHC 33.2 32.3 - 35.7 g/dL [facility] RDW CV 12.7 11.1 - 14.9 % [facility] RDW SD 39.7 35.7 - 48.1 fL [facility] NRBC abs 0.00 0.00 - 0.01 K/cumm [facility] Blood 09/14/2024 11:1 0 AM PASTORAL COUNSELOR 09/14/2024 4:20 PM PASTORAL COUNSELOR Cynthia Haley [employer] LAB BLOOD ORDERABLES Final Result [facility] Department [place] [address] * Comprehensive metabolic panel (09/14/2024 11:10 AM PASTORAL COUNSELOR) Sodium 140 135 - 145 mmol/L Potassium, pl 3.7 3.3 - 4.9 mmol/L [facility] Chloride 101 97 - 110 mmol/L [facility] CO2 28 22 - 32 mmol/L [facility] Anion gap 11 2 - 15 mmol/L [facility] BUN 14 6 - 25 mg/dL [facility] Creatinine 0.96 0.60 - 1.10 mg/dL [facility] Glucose 77 70 - 199 mg/dL [facility] Comment: Interpretive Data Fasting glucose [...] 2022. Calcium 9.0 8.5 - 10.3 mg/dL [facility] Bilirubin, total 0.2 0.1 - 1.2 mg/dL [facility] Protein, pl 6.8 6.5 - 8.5 g/dL [facility] Albumin 3.6 3.5 - 5.0 g/dL [facility] Alk phos 127 40 - 130 Units/L [facility] ALT 22 7 - 45 Units/L [facility] AST 20 10 - 45 Units/L [facility] Blood 09/14/2024 11:1 0 AM PASTORAL COUNSELOR 09/14/2024 4:20 PM PASTORAL COUNSELOR Cynthia Haley [employer] LAB BLOOD ORDERABLES Final Result [facility] [place] [address] * XR Shoulder Left 2 or More Views (09/13/2024 4:37 PM PASTORAL COUNSELOR) Anatomical Region Laterality Modality Upper Extremities, Shoulder Left Digi skylar Radiography 09/17/2024 12:0 3 AM PASTORAL COUNSELOR Narrative 09/17/2024 12:23 AM PASTORAL COUNSELOR EXAM DESCRIPTION: XR SHOULDER LEFT 2 OR [...] Desi Rand M.D. SN T: Report ID: [id number] Reading Location: [id number] Procedure Note Desi Rand MD - 09/17/2024 [...] Desi Rand M.D. SN T: Report ID: [id number] Reading Location: [id number] us Cynthia Haley [employer]ER IMG XR PROCEDURES Final Re sult * X-ray chest 2 views (09/13/2024 4:28 PM PASTORAL COUNSELOR) Anatomical Region Laterality Modality Body, Chest N/A Digital Radiogra phy 09/17/2024 12:0 0 AM PASTORAL COUNSELOR Narrative 09/17/2024 12:01 AM PASTORAL COUNSELOR EXAM DESCRIPTION: XR CHEST PA LATERAL 2 [...] Desi Rand M.D. SN T: Report ID: [id number] Reading Location: [id number] Procedure Note Desi Rand MD - 09/17/2024 [...] Desi Rand M.D. SN T: Report ID: [id number] Reading Location: [id number] Cynthia Haley [employer]ATING [employer] CLEANER IMG XR PROCEDURES Final Re sult * POCT PT/INR (09/11/2024 11:59 AM PASTORAL COUNSELOR) INR, POC 1.60 HH [facility] RESULTING LABORATORY Comment:PT TAKING ORDERED IN EVENING Blood 09/11/2024 11:5 9 AM PASTORAL COUNSELOR Cynthia Haley NP POINT OF CARE TEST ORDERAB LES Final Result [facility] * TRANSTHORACIC ECHO (TTE) COMPLETE W DOPPLER/CF WO CONTRAST (09/08/2024 5:45 PM PASTORAL COUNSELOR) LV EF % CONS SCIMAGE Anatomical Region Laterality Modality Ultrasound 09/08/2024 12:5 4 PM PASTORAL COUNSELOR Narrative 09/08/2024 4:21 [place] [address] Echocardiogram Report Patient Name: ZURI ACEVES SUE : 1970 Study Date: 09/08/2024 12:54:21 PM Gender: F Tech: [place] Location: [id number] Ref Provider: TALYA BOUCHER Height(Cm): 163 BSA: [...] regurgitation. Electronically Signed By: Dr. Matilda Guo [facility] 09/08/2024 4:19:47 PM PASTORAL COUNSELOR Procedure Note Matilda Guo MD - 09/08/2024 [place] [address] Echocardiogram Report Patient Name: ZURI ACEVES SUE : 1970 Study Date: 09/08/2024 12:54:21 PM Gender: F Tech: [place] Location: [place] [id number] Ref Provider: TALYA BOUCHER Height(Cm): 163 BSA: [...] regurgitation. Electronically Signed By: Dr. Matilda Guo [facility] 09/08/2024 4:19:47 PM PASTORAL COUNSELOR us Talya Boucher MD CV ECHO PROCEDURES Final Resul t * XR Chest 1 View - Portable - in AM (09/08/2024 6:17 AM PASTORAL COUNSELOR) Anatomical Region Laterality Modality Body, Chest N/A Computed Radiogr aphy 09/08/2024 7:25 AM PASTORAL COUNSELOR Impressions 09/08/2024 7:25 AM PASTORAL COUNSELOR No change from previous. Electronically signed by: Gabriel Minaya M.D. Narrative 09/08/2024 7:25 AM PASTORAL COUNSELOR EXAM: XR CHEST 1 VIEW DATE: 09/08/2024 [...] Final Result * eGFR (09/08/2024 4:43 AM PASTORAL COUNSELOR) eGFR 85 >=60 mL/min/1. 73 m2 Comment: [...] last reviewed 2021. Blood 09/08/2024 4:43 AM PASTORAL COUNSELOR 09/08/2024 4:43 AM PASTORAL COUNSELOR Joey Oconnor [employer]ER LAB BLOOD ORDERABLES Final Result Performing Organization Address [facility] de Phone Number [facility] [address] [facility] [place] [address] * (ABNORMAL) Protime-INR (09/08/2024 4:43 AM PASTORAL COUNSELOR) Pathologist [facility] PT 46.1(H) 9.7 - 13.0 sec INR 4.15(H) 0.90 - 1.[address] [facility] Comment: Interpretive data Oral anticoagulant therapeutic ranges: Venous thromboembolism prophylaxis or treatment: 2.0-3.0 CARDIOLOGY Standard range: 2.0-3.0 High-intensity range: 2.5-3.5 Refer to indication-specific guidelines for appropriate target ranges for prosthetic heart valve replacement. Current interpretive data was last revised on 2019. Blood 09/08/2024 4:43 AM PASTORAL COUNSELOR 09/08/2024 4:43 AM PASTORAL COUNSELOR Joey Oconnor NP LAB BLOOD ORDERABLES Final Result Performing Organization Address [facility] de Phone Number NICOLE [address] [address] [facility] [place] [address] * (ABNORMAL) CBC without differential (09/08/2024 4:43 AM PASTORAL COUNSELOR) WBC 6.1 3.8 - 9.9 K/cumm Hgb 10.8(L) 11.9 - 15.5 g/dL [facility] Hct 33.2(L) 35.6 - 45.5 % [facility] Plt 166 150 - 400 K/cumm [facility] MPV 10.7 9.1 - 12.[address] [facility] RBC 3.82(L) 3.90 - 5.20 M/cumm [facility] MCV 86.9 81.3 - 96.[address] [facility] MCH 28.3 27.1 - 33.[address] [facility] MCHC 32.5 32.3 - 35.7 g/dL [facility] RDW CV 12.4 11.1 - 14.9 % [facility] RDW SD 39.3 35.7 - 48.[address] [facility] NRBC abs 0.00 0.00 - 0.01 K/cumm [facility] Blood 09/08/2024 4:43 AM PASTORAL COUNSELOR 09/08/2024 4:43 AM PASTORAL COUNSELOR Joey Oconnor NP LAB BLOOD ORDERABLES Final Result [facility] [address] [address] Department [place] [address] * Basic metabolic panel (09/08/2024 4:43 AM PASTORAL COUNSELOR) Sodium 141 135 - 145 mmol/L Potassium, pl 3.4 3.3 - 4.9 mmol/L [facility] Chloride 106 97 - 110 mmol/L [facility] CO2 25 22 - 32 mmol/L [facility] Anion gap 10 2 - 15 mmol/L [facility] BUN 17 6 - 25 mg/dL [facility] Creatinine 0.82 0.60 - 1.10 mg/dL [facility] Glucose 91 70 - 199 mg/dL [facility] Comment: Interpretive Data Fasting glucose >/= [...] 2022. Calcium 8.5 8.5 - 10.3 mg/dL [facility] Blood 09/08/2024 4:43 AM PASTORAL COUNSELOR 09/08/2024 4:43 AM PASTORAL COUNSELOR us Joey Oconnor NP LAB BLOOD ORDERABLES Final Result NICOLE RAMOS [address] [address] Department [place] [address] * XR Chest 1 View - Portable - in AM (09/07/2024 5:30 AM PASTORAL COUNSELOR) Anatomical Region Laterality Modality Body, Chest N/A Computed Radiogr aphy 09/07/2024 8:13 AM PASTORAL COUNSELOR Impressions 09/07/2024 8:13 AM PASTORAL COUNSELOR No failure or pneumothorax. Atelectasis left base. Electronically signed by: Dick Renteria M.D. Narrative 09/07/2024 8:13 AM PASTORAL COUNSELOR EXAMINATION: XR CHEST 1 VIEW DATE: 09/07/2024 [...] Final Result * eGFR (09/07/2024 4:49 AM PASTORAL COUNSELOR) eGFR 84 >=60 mL/min/1. 73 m2 Comment: [...] last reviewed 2021. Blood 09/07/2024 4:49 AM PASTORAL COUNSELOR 09/07/2024 5:16 AM PASTORAL COUNSELOR Joey Oconnor NP LAB BLOOD ORDERABLES Final Result Performing Organization Address [facility] de Phone Number NICOLE RAMOS [address] [address] * (ABNORMAL) Protime-INR (09/07/2024 4:49 AM PASTORAL COUNSELOR) PT 36.1(H) 9.7 - 13.0 sec INR 3.26(H) 0.90 - 1.20 NICOLE RAMOS Comment: Interpretive data Oral anticoagulant therapeutic ranges: Venous thromboembolism prophylaxis or treatment: 2.0-3.0 CARDIOLOGY Standard range: 2.0-3.0 High-intensity range: 2.5-3.5 Refer to indication-specific guidelines for appropriate target ranges for prosthetic heart valve replacement. Current interpretive data was last revised on 2019. Blood 09/07/2024 4:49 AM PASTORAL COUNSELOR 09/07/2024 5:17 AM PASTORAL COUNSELOR Joey Oconnor NP LAB BLOOD ORDERABLES Final Result Performing Organization Address [facility] Co de Phone Number NICOLE RAMOS [address] [address] [address] * (ABNORMAL) CBC without differential (09/07/2024 4:49 AM PASTORAL COUNSELOR) Pathologist [facility] WBC 8.6 3.8 - 9.9 K/cumm Hgb 11.3(L) 11.9 - 15.5 g/dL [facility] Hct 35.2(L) 35.6 - 45.5 % [facility] Plt 116(L) 150 - 400 K/cumm [facility] Comment:No clot detected in sample. MPV 10.9 9.1 - 12.[address] [facility] RBC 3.99 3.90 - 5.20 M/cumm [facility] MCV 88.2 81.3 - 96.4 fL [facility] MCH 28.3 27.1 - 33.3 pg [facility] MCHC 32.1(L) 32.3 - 35.7 g/dL [facility] RDW CV 12.5 11.1 - 14.9 % [facility] RDW SD 40.1 35.7 - 48.[address] [facility] NRBC abs 0.00 0.00 - 0.01 K/cumm [facility] Blood 09/07/2024 4:49 AM PASTORAL COUNSELOR 09/07/2024 5:17 AM PASTORAL COUNSELOR Joey Oconnor NP LAB BLOOD ORDERABLES Final Result [facility] [address] [address] Department [place] [address] * Basic metabolic panel (09/07/2024 4:49 AM PASTORAL COUNSELOR) [facility] Sodium 139 135 - 145 mmol/L Potassium, pl 3.8 3.3 - 4.9 mmol/L [facility] Chloride 105 97 - 110 mmol/L [facility] CO2 25 22 - 32 mmol/L [facility] Anion gap 9 2 - 15 mmol/L [facility] BUN 18 6 - 25 mg/dL [facility] Creatinine 0.83 0.60 - 1.10 mg/dL [facility] Glucose 104 70 - 199 mg/dL [facility] Comment: Interpretive Data Fasting glucose >/= [...] 2022. Calcium 8.8 8.5 - 10.3 mg/dL NICOLE Blood 09/07/2024 4:49 AM PASTORAL COUNSELOR 09/07/2024 5:16 AM PASTORAL COUNSELOR Joey Oconnor NP LAB BLOOD ORDERABLES Final Result Performing Organization Address [facility] Co de Phone Number [facility] [address] [place] [address] * (ABNORMAL) aPTT (09/06/2024 2:10 PM PASTORAL COUNSELOR) aPTT 26(L) 28 - 38 sec Comment: Interpretive Data Heparin therapeutic range: 66.0 - 100.0 seconds. Range based on correlation with therapeutic heparin activity range of 0.3 - 0.7 Units/mL. Current interpretive data was last revised on 2023. Blood 09/06/2024 2:10 PM PASTORAL COUNSELOR 09/06/2024 2:17 PM PASTORAL COUNSELOR Narrative NICOLE - 09/06/2024 2:32 PM PASTORAL COUNSELOR Baseline prior to enoxaparin initiation. Joey Oconnor NP LAB BLOOD ORDERABLES Final Result Performing Organization Address City/[facility]/ZIP Co de Phone Number [facility] [address] [place] [address] * (ABNORMAL) Protime-INR (09/06/2024 2:10 PM PASTORAL COUNSELOR) PT 18.5(H) 9.7 - 13.0 sec INR 1.69(H) 0.90 - 1.20 NICOLE Comment: Interpretive data Oral anticoagulant therapeutic ranges: Venous thromboembolism prophylaxis or treatment: 2.0-3.0 CARDIOLOGY Standard range: 2.0-3.0 High-intensity range: 2.5-3.5 Refer to indication-specific guidelines for appropriate target ranges for prosthetic heart valve replacement. Current interpretive data was last revised on 2019. Blood 09/06/2024 2:10 PM PASTORAL COUNSELOR 09/06/2024 2:17 PM PASTORAL COUNSELOR Joey Oconnor [employer] LAB BLOOD ORDERABLES Final Result [facility] [address] [address] [place] [address] * Calcium, ionized, whole blood (09/06/2024 12:52 PM PASTORAL COUNSELOR) Ca, ionized, bld 4.86 4.50 - 5.10 mg/dL Blood 09/06/2024 12:5 2 PM PASTORAL COUNSELOR 09/06/2024 1:06 PM PASTORAL COUNSELOR Zoe Ureña [employer]ATING [employer] CLE[employer]ER LAB BLOOD ORDERABLES F inal Result Performing Organization Address City/[facility]/ZIP Co de Phone Number [facility] [address] [place] [address] * eGFR (09/06/2024 12:52 PM PASTORAL COUNSELOR) eGFR 89 >=60 mL/min/1. 73 m2 Comment: [...] reviewed 2021. Blood 09/06/2024 12:5 2 PM PASTORAL COUNSELOR 09/06/2024 1:09 PM PASTORAL COUNSELOR Zoe Ureña [employer] LAB BLOOD ORDERABLES F inal Result Performing Organization Address City/[facility] Co de Phone Number NICOLE [address] [address] [employer] [place], [place] [id number] * Magnesium (09/06/2024 12:52 PM PASTORAL COUNSELOR) Pathologist [facility] Magnesium 2.0 1.4 - 2.5 mg/dL Blood 09/06/2024 12:5 2 PM PASTORAL COUNSELOR 09/06/2024 1:06 PM PASTORAL COUNSELOR Zoe Ureña [employer] LAB BLOOD ORDERABLES F inal Result Performing Organization Address [facility] de Phone Number NICOLE [address] [place] [address] * (ABNORMAL) Renal function panel (09/06/2024 12:52 PM PASTORAL COUNSELOR) Sodium 140 135 - 145 mmol/L Potassium, pl 4.0 3.3 - 4.9 mmol/L [facility] Chloride 107 97 - 110 mmol/L [facility] CO2 27 22 - 32 mmol/L [facility] Anion gap 6 2 - 15 mmol/L [facility] BUN 17 6 - 25 mg/dL [facility] Creatinine 0.79 0.60 - 1.10 mg/dL [facility] Glucose 105 70 - 199 mg/dL [facility] Comment: Interpretive Data Fasting glucose >/= 126 [...] Albumin 3.4(L) 3.5 - 5.0 g/dL [facility] Blood 09/06/2024 12:5 2 PM PASTORAL COUNSELOR 09/06/2024 1:06 PM PASTORAL COUNSELOR Zoe Ureña NP LAB BLOOD ORDERABLES F inal Result Performing Organization Address [facility] Co de Phone Number NICOLE RAMOS [address] [address] [place] [address] * POCT glucose (09/06/2024 11:55 AM PASTORAL COUNSELOR) Glucose, POC 101 70 - 199 mg/dL Blood 09/06/2024 11:5 5 AM PASTORAL COUNSELOR 09/06/2024 11:55 AM PASTORAL COUNSELOR Result [facility] Talya Boucher MD LAB POCT ORDERABLES - DEVICE F inal Result Performing Organization Address [facility] Co de Phone Number [facility] [address] [address] [place] [address] * POCT glucose (09/06/2024 7:33 AM PASTORAL COUNSELOR) Glucose, POC 106 70 - 199 mg/dL Blood 09/06/2024 7:33 AM PASTORAL COUNSELOR 09/06/2024 7:33 AM PASTORAL COUNSELOR Talya Boucher MD LAB POCT ORDERABLES - DEVICE F inal Result Performing Organization Address [facility] Co de Phone Number [facility] [address] [address] [place] [address] * Critical Care (09/06/2024 7:00 AM PASTORAL COUNSELOR) Narrative Lenin Huff MD - 09/06/2024 7:00 AM PASTORAL COUNSELOR Zoe Ureña NP 09/06/2024 3:56 PM Critical [...] plan with the ICU team and other medical/medical device sales consultant staff, making frequent assessments and decisions [...] and imaging Zoe Ureña NP IN CLINIC/BEDSIDE [facility]ITZA[facility]y LISA Final Result * XR Chest 1 View - Portable - in AM (09/06/2024 5:34 AM PASTORAL COUNSELOR) Anatomical Region Laterality Modality Body, Chest N/A Computed Radiogr aphy 09/06/2024 8:19 AM PASTORAL COUNSELOR Impressions 09/06/2024 8:19 AM PASTORAL COUNSELOR Improvement. Some residual atelectasis fluid left base. Electronically signed by: Dick Renteria M.D. Narrative 09/06/2024 8:19 AM PASTORAL COUNSELOR EXAMINATION: XR CHEST 1 VIEW DATE: 09/06/2024 [...] by: Dick Renteria M.D. Talya Boucher MD IM XR PROCEDURES Final Result * eGFR (09/06/2024 3:28 AM PASTORAL COUNSELOR) eGFR >90 >=60 mL/min/1. 73 m2 Comment: [...] last reviewed 2021. Blood 09/06/2024 3:28 AM PASTORAL COUNSELOR 09/06/2024 3:40 AM PASTORAL COUNSELOR Talya Boucher MD LAB BLOOD ORDERABLES Final Res ult Performing Organization Address City/[facility] Co de Phone Number NICOLE RAMOS [address] [address] Department of [employer] [place], [place] [id number] * (ABNORMAL) CBC without differential (09/06/2024 3:28 AM PASTORAL COUNSELOR) WBC 10.1(H) 3.8 - 9.9 K/cumm Hgb 10.9(L) 11.9 - 15.5 g/dL [facility] Hct 33.6(L) 35.6 - 45.5 % [facility] Plt 88(L) 150 - 400 K/cumm [facility] CH MPV 10.6 9.1 - 12.[address] [facility] RBC 3.85(L) 3.90 - 5.20 M/cumm [facility] CH MCV 87.3 81.3 - 96.[address] [facility] MCH 28.3 27.1 - 33.3 pg [facility] MCHC 32.4 32.3 - 35.7 g/dL [facility] CH RDW CV 12.6 11.1 - 14.9 % [facility] CH RDW SD 40.2 35.7 - 48.[address] [facility] NRBC abs 0.00 0.00 - 0.01 K/cumm [facility] Blood 09/06/2024 3:28 AM PASTORAL COUNSELOR 09/06/2024 3:40 AM PASTORAL COUNSELOR Talya Boucher MD LAB BLOOD ORDERABLES Final Res ult NICOLE RAMOS [address] [address] Department [facility] [employer] [place], [place] [id number] * Phosphorus (09/06/2024 3:28 AM PASTORAL COUNSELOR) Phosphorus, pl 2.5 2.3 - 4.5 mg/dL Blood 09/06/2024 3:28 AM PASTORAL COUNSELOR 09/06/2024 3:37 AM PASTORAL COUNSELOR Jessica Martinez [employer] LAB BLOOD ORDERABLES Fin al Result Performing Organization Address City/[facility]/ZIP Co de Phone Number NICOLE RAMOS [address] [address] [facility] [place] [address] * Magnesium (09/06/2024 3:28 AM PASTORAL COUNSELOR) Magnesium 2.1 1.4 - 2.5 mg/dL Blood 09/06/2024 3:28 AM PASTORAL COUNSELOR 09/06/2024 3:37 AM PASTORAL COUNSELOR us Talya Boucher MD LAB BLOOD ORDERABLES Final Res ult Performing Organization Address [facility] Co de Phone Number NICOLE [address] [address] [facility] [place] [address] * Basic metabolic panel (09/06/2024 3:28 AM PASTORAL COUNSELOR) Sodium 140 135 - 145 mmol/L Potassium, pl 4.0 3.3 - 4.9 mmol/L [facility] Chloride 107 97 - 110 mmol/L [facility] CO2 24 22 - 32 mmol/L [facility] Anion gap 9 2 - 15 mmol/L [facility] BUN 14 6 - 25 mg/dL [facility] Creatinine 0.74 0.60 - 1.10 mg/dL [facility] Glucose 120 70 - 199 mg/dL [facility] Comment: Interpretive Data Fasting glucose >/= [...] Calcium 8.5 8.5 - 10.3 mg/dL [facility] Blood 09/06/2024 3:28 AM PASTORAL COUNSELOR 09/06/2024 3:37 AM PASTORAL COUNSELOR us Talya Boucher MD LAB BLOOD ORDERABLES Final Res ult Performing Organization Address [facility] Co de Phone Number NICOLE RAMOS [address] [address] [facility] [employer] [place], [place] [phone] * POCT glucose (09/05/2024 9:00 PM PASTORAL COUNSELOR) Glucose, POC 120 70 - 199 mg/dL Blood 09/05/2024 9:00 PM PASTORAL COUNSELOR 09/05/2024 9:00 PM PASTORAL COUNSELOR Talya Boucher MD LAB POCT ORDERABLES - DEVICE F inal Result Performing Organization Address [facility] Co de Phone Number NICOLE RAMOS [address] [address] [facility] [place] [address] * POCT glucose (09/05/2024 5:08 PM PASTORAL COUNSELOR) Glucose, POC 126 70 - 199 mg/dL Blood 09/05/2024 5:08 PM PASTORAL COUNSELOR 09/05/2024 5:08 PM PASTORAL COUNSELOR Talya Boucher MD LAB POCT ORDERABLES - DEVICE F inal Result Performing Organization Address [facility] Co de Phone Number NICOLE RAMOS [address] [address] [facility] [place] [address] * eGFR (09/05/2024 3:29 PM PASTORAL COUNSELOR) eGFR >90 >=60 mL/min/1. 73 m2 Comment: [...] last reviewed 2021. Blood 09/05/2024 3:29 PM PASTORAL COUNSELOR 09/05/2024 3:30 PM PASTORAL COUNSELOR Talya Boucher MD LAB BLOOD ORDERABLES Final Res ult Performing Organization Address City/[facility]/ZIP Co de Phone Number NICOLE [phone] [place] [address] * (ABNORMAL) CBC without differential (09/05/2024 3:29 PM PASTORAL COUNSELOR) WBC 12.7(H) 3.8 - 9.9 K/cumm Hgb 11.7(L) 11.9 - 15.5 g/dL [facility] Hct 35.3(L) 35.6 - 45.5 % [facility] Plt 95(L) 150 - 400 K/cumm [facility] CH MPV 11.2 9.1 - 12.3 fL [facility] RBC 4.05 3.90 - 5.20 M/cumm [facility] CH MCV 87.2 81.3 - 96.4 fL [facility] MCH 28.9 27.1 - 33.3 pg [facility] MCHC 33.1 32.3 - 35.7 g/dL [facility] RDW CV 12.8 11.1 - 14.9 % [facility] RDW SD 40.8 35.7 - 48.1 fL [facility] NRBC abs 0.00 0.00 - 0.01 K/cumm [facility] Blood 09/05/2024 3:29 PM PASTORAL COUNSELOR 09/05/2024 3:30 PM PASTORAL COUNSELOR Talya Boucher MD LAB BLOOD ORDERABLES Final Res ult Performing Organization Address City/[facility]/ZIP Co de Phone Number NICOLE RAMOS [address] [address] Department [place] [address] * Magnesium (09/05/2024 3:29 PM PASTORAL COUNSELOR) Pathologist [facility] Magnesium 2.1 1.4 - 2.5 mg/dL Blood 09/05/2024 3:29 PM PASTORAL COUNSELOR 09/05/2024 3:30 PM PASTORAL COUNSELOR Talya Boucher MD LAB BLOOD ORDERABLES Final Res ult Performing Organization Address [facility] de Phone Number [facility] [address] [address] Department [place] [address] * Basic metabolic panel (09/05/2024 3:29 PM PASTORAL COUNSELOR) Pathologist [facility] Sodium 138 135 - 145 mmol/L Potassium, pl 4.0 3.3 - 4.9 mmol/L [facility] Chloride 105 97 - 110 mmol/L [facility] CO2 24 22 - 32 mmol/L [facility] Anion gap 9 2 - 15 mmol/L [facility] BUN 10 6 - 25 mg/dL [facility] Creatinine 0.76 0.60 - 1.10 mg/dL [facility] Glucose 140 70 - 199 mg/dL [facility] Comment: Interpretive Data Fasting glucose >/= [...] 2022. Calcium 8.5 8.5 - 10.3 mg/dL [facility] Blood 09/05/2024 3:29 PM PASTORAL COUNSELOR 09/05/2024 3:30 PM PASTORAL COUNSELOR Talya Boucher MD LAB BLOOD ORDERABLES Final Res ult Performing Organization Address [facility]/ZIP Co de Phone Number [facility] [address] [address] [facility] [place] [address] * Calcium, ionized, whole blood (09/05/2024 3:25 PM PASTORAL COUNSELOR) Ca, ionized, bld 4.65 4.50 - 5.10 mg/dL Blood 09/05/2024 3:25 PM PASTORAL COUNSELOR 09/05/2024 3:29 PM PASTORAL COUNSELOR Talya Boucher MD LAB BLOOD ORDERABLES Final Res ult Performing Organization Address [facility] Phone Number NICOLE [address] [address] [place] [address] * POCT glucose (09/05/2024 12:46 PM PASTORAL COUNSELOR) Glucose, POC 134 70 - 199 mg/dL Blood 09/05/2024 12:4 6 PM PASTORAL COUNSELOR 09/05/2024 12:46 PM PASTORAL COUNSELOR Talya Boucher MD LAB POCT ORDERABLES - DEVICE F inal Result Performing Organization Address [facility] Phone Number NICOLE [address] [address] [facility] [place] [address] * ECG 12 lead (09/05/2024 8:41 AM PASTORAL COUNSELOR) 09/05/2024 8:41 AM PASTORAL COUNSELOR Narrative [facility] - 09/05/2024 11:12 AM PASTORAL COUNSELOR Vent Rate: 96 bpm RR Interval: [address] Interval: 135 msec QRS Duration: 83 msec QT Interval: 368 msec QTC Interval: 421 msec P-R-T [place]: 7 - 1 - 10 degrees IMPRESSION: SINUS RHYTHM POSSIBLE INFERIOR MYOCARDIAL INFARCTION , PROBABLY OLD [30 ms Q WAVE IN II/aVF] BORDERLINE ECG Electronically Signed By: Dr. Matilda Guo [facility] Talya Boucher MD ECG ORDERABLES Final Result Performing Organization Address [facility]/ZIP Co de Phone Number [facility] * (ABNORMAL) CBC without differential (09/05/2024 7:51 AM PASTORAL COUNSELOR) WBC 11.7(H) 3.8 - 9.9 K/cumm Hgb 11.5(L) 11.9 - 15.5 g/dL [facility] Hct 35.4(L) 35.6 - 45.5 % [facility] Plt 104(L) 150 - 400 K/cumm [facility] MPV 11.1 9.1 - 12.[address] [facility] RBC 4.03 3.90 - 5.20 M/cumm [facility] MCV 87.8 81.3 - 96.[address] [facility] MCH 28.5 27.1 - 33.3 pg [facility] MCHC 32.5 32.3 - 35.7 g/dL [facility] RDW CV 12.8 11.1 - 14.9 % [facility] RDW SD 41.6 35.7 - 48.[address] [facility] NRBC abs 0.00 0.00 - 0.01 K/cumm [facility] Blood 09/05/2024 7:51 AM PASTORAL COUNSELOR 09/05/2024 8:02 AM PASTORAL COUNSELOR Narrative [facility] - 09/05/2024 8:40 AM PASTORAL COUNSELOR Baseline prior to warfarin initiation. Talya Boucher MD LAB BLOOD ORDERABLES Final Res ult [facility] [address] [address] Department [place] [address] * (ABNORMAL) aPTT (09/05/2024 7:47 AM PASTORAL COUNSELOR) aPTT 27(L) 28 - 38 sec Comment: Interpretive Data Heparin therapeutic range: 66.0 - 100.0 seconds. Range based on correlation with therapeutic heparin activity range of 0.3 - 0.7 Units/mL. Current interpretive data was last revised on 2023. Blood 09/05/2024 7:47 AM PASTORAL COUNSELOR 09/05/2024 8:02 AM PASTORAL COUNSELOR Narrative [facility] - 09/05/2024 8:48 AM PASTORAL COUNSELOR Baseline prior to warfarin initiation. Talya Boucher MD LAB BLOOD ORDERABLES Final Res ult Performing Organization Address [facility] de Phone Number [facility] [address] [address] [facility] [place] [address] * Protime-INR (09/05/2024 7:47 AM PASTORAL COUNSELOR) PT 11.2 9.7 - 13.0 sec INR 1.04 0.90 - 1.[address] [facility] Comment: Interpretive data Oral anticoagulant therapeutic ranges: Venous thromboembolism prophylaxis or treatment: 2.0-3.0 CARDIOLOGY Standard range: 2.0-3.0 High-intensity range: 2.5-3.5 Refer to indication-specific guidelines for appropriate target ranges for prosthetic heart valve replacement. Current interpretive data was last revised on 2019. Blood 09/05/2024 7:47 AM PASTORAL COUNSELOR 09/05/2024 8:02 AM PASTORAL COUNSELOR Narrative [facility] - 09/05/2024 8:45 AM PASTORAL COUNSELOR Baseline prior to warfarin initiation. Talya Boucher MD LAB BLOOD ORDERABLES Final Res t Performing Organization Address [facility] de Phone Number [facility] [address] [address] [facility] [place] [address] * Critical Care (09/05/2024 7:05 AM PASTORAL COUNSELOR) Narrative Lnein Huff MD - 09/05/2024 7:05 AM PASTORAL COUNSELOR Jessica Martinez NP 09/05/2024 7:30 AM Critical [...] plan with the ICU team and other medical/medical device sales consultant staff, making frequent assessments and decisions [...] in the medical record us Jessica Martinez [employer]BONATING STONE CLEANER IN CLINIC/BEDSIDE ORDERA BLES Final Result * POCT glucose (09/05/2024 7:05 AM PASTORAL COUNSELOR) Glucose, POC 146 70 - 199 mg/dL Blood 09/05/2024 7:05 AM PASTORAL COUNSELOR 09/05/2024 7:05 AM PASTORAL COUNSELOR Talya Boucher MD LAB POCT ORDERABLES - DEVICE F inal Result [facility] [address] [address] Department [place] [address] * XR Chest 1 View - Portable - in AM (09/05/2024 5:47 AM PASTORAL COUNSELOR) Anatomical Region Laterality Modality Body, Chest N/A Computed Radiogr aphy 09/05/2024 8:37 AM PASTORAL COUNSELOR Impressions 09/05/2024 8:37 AM PASTORAL COUNSELOR Improvement in the left perihilar infiltrate. Residual fluid and atelectasis left base. Extubation.. Electronically signed by: Dick Renteria M.D. Narrative 09/05/2024 8:37 AM PASTORAL COUNSELOR EXAMINATION: XR CHEST 1 VIEW DATE: 09/05/2024 [...] * Oxyhemoglobin, pulmonary artery (09/05/2024 3:49 AM PASTORAL COUNSELOR) Oxyhemoglobin, PA 70.1 % Comment: Interpretive Data No reference range established. Current interpretive data was last revised 2019. Blood 09/05/2024 3:49 AM PASTORAL COUNSELOR 09/05/2024 4:00 AM PASTORAL COUNSELOR Jessica Martinez NP LAB BLOOD ORDERABLES [facility] al Result [facility] [address] [address] Department of Laboratories [place], [place] [id number] * eGFR (09/05/2024 3:49 AM PASTORAL COUNSELOR) eGFR 80 >=60 mL/min/1. 73 m2 Comment: [...] last reviewed 2021. Blood 09/05/2024 3:49 AM PASTORAL COUNSELOR 09/05/2024 4:02 AM PASTORAL COUNSELOR us Talya Boucher MD LAB BLOOD ORDERABLES Final Res ult [facility] [address] [address] Department [place] [address] * (ABNORMAL) Differential, auto (09/05/2024 3:49 AM PASTORAL COUNSELOR) Neutrophil abs 8.8(H) 1.5 - 6.5 K/cumm Imm gran abs 0.1 0.0 - 0.1 K/cumm [facility] Lymphocyte abs 1.0 0.8 - 3.3 K/cumm [facility] Monocyte abs 0.9(H) 0.2 - 0.8 K/cumm [facility] Eosinophil abs 0.0 0.0 - 0.5 K/cumm [facility] Basophil abs 0.0 0.0 - 0.1 K/cumm [facility] Neutrophil pct 81.4 % [facility] Comment: Interpretive Data Percent cell count reference ranges are not reported, since discordance with absolute values may lead to misinterpretation of CBC data. Current Interpretive Data was last revised on 2017. Imm gran pct 0.6 % [facility] Comment: Interpretive Data Percent cell count reference ranges are not reported, since discordance with absolute values may lead to misinterpretation of CBC data. Current Interpretive Data was last revised on 2017. Lymphocyte pct 9.2 % [facility] Comment: Interpretive Data Percent cell count reference ranges are not reported, since discordance with absolute values may lead to misinterpretation of CBC data. Current Interpretive Data was last revised on 2017. Monocyte pct 8.6 % [facility] Comment: Interpretive Data Percent cell count reference ranges are not reported, since discordance with absolute values may lead to misinterpretation of CBC data. Current Interpretive Data was last revised on 2017. Eosinophil pct 0.0 % [facility] Comment: Interpretive Data Percent cell count reference ranges are not reported, since discordance with absolute values may lead to misinterpretation of CBC data. Current Interpretive Data was last revised on 2017. Basophil pct 0.2 % [facility] Comment: Interpretive Data Percent cell count reference ranges are not reported, since discordance with absolute values may lead to misinterpretation of CBC data. Current Interpretive Data was last revised on 2017. Blood 09/05/2024 3:49 AM PASTORAL COUNSELOR 09/05/2024 4:02 AM PASTORAL COUNSELOR Talya Boucher MD LAB BLOOD ORDERABLES Final Res ult Performing Organization Address [facility] Co de Phone Number NICOLE RAMOS [address] [address] Department of Laboratories [place], [place] [phone] * (ABNORMAL) Thyroid Function [place] (09/05/2024 3:49 AM PASTORAL COUNSELOR) TSH 0.21(L) 0.30 - 4.20 mcIUnit/mL Blood 09/05/2024 3:49 AM PASTORAL COUNSELOR 09/05/2024 4:02 AM PASTORAL COUNSELOR Jessica Martinez NP LAB BLOOD ORDERABLES Fin al Result Performing Organization Address [facility] Co de Phone Number NICOLE RAMOS [address] [address] Department [place] [address] * (ABNORMAL) CBC with auto differential (09/05/2024 3:49 AM PASTORAL COUNSELOR) WBC 10.8(H) 3.8 - 9.9 K/cumm Hgb 11.7(L) 11.9 - 15.5 g/dL [facility] Hct 35.9 35.6 - 45.5 % [facility] Plt 101(L) 150 - 400 K/cumm [facility] MPV 10.5 9.1 - 12.[address] [facility] RBC 4.10 3.90 - 5.20 M/cumm [facility] MCV 87.6 81.3 - 96.[address] [facility] MCH 28.5 27.1 - 33.[address] [facility] MCHC 32.6 32.3 - 35.7 g/dL [facility] RDW CV 12.7 11.1 - 14.9 % [facility] RDW SD 40.8 35.7 - 48.[address] [facility] NRBC abs 0.00 0.00 - 0.01 K/cumm [facility] Blood 09/05/2024 3:49 AM PASTORAL COUNSELOR 09/05/2024 4:02 AM PASTORAL COUNSELOR Talya Boucher MD LAB BLOOD ORDERABLES Final Res ult Performing Organization Address [facility] de Phone Number NICOLE [address] [address] [facility] [place] [address] * T3, free (09/05/2024 3:49 AM PASTORAL COUNSELOR) Free T3 3.0 2.0 - 4.4 pg/mL Blood 09/05/2024 3:49 AM PASTORAL COUNSELOR 09/05/2024 4:02 AM PASTORAL COUNSELOR Narrative [facility] - 09/05/2024 12:49 PM PASTORAL COUNSELOR This test was reflexed from a Free T4 result. Jessica Martinez NP LAB BLOOD ORDERABLES Fin al Result Performing Organization Address [facility] de Phone Number [facility] [address] [address] [facility] [place] [address] * T4, free (09/05/2024 3:49 AM PASTORAL COUNSELOR) Free T4 1.07 0.90 - 1.70 ng/dL Blood 09/05/2024 3:49 AM PASTORAL COUNSELOR 09/05/2024 4:02 AM PASTORAL COUNSELOR Jessica Martinez NP LAB BLOOD ORDERABLES Fin al Result Performing Organization Address [facility] de Phone Number [facility] [address] [place] [address] * Phosphorus (09/05/2024 3:49 AM PASTORAL COUNSELOR) Phosphorus, pl 4.0 2.3 - 4.5 mg/dL Blood 09/05/2024 3:49 AM PASTORAL COUNSELOR 09/05/2024 4:02 AM PASTORAL COUNSELOR Jessica Martinez [employer]ATING [employer] CLEANER LAB BLOOD ORDERABLES Fin al Result Performing Organization Address [facility] de Phone Number [facility] [address] [address] [facility] [place] [address] * Magnesium (09/05/2024 3:49 AM PASTORAL COUNSELOR) Pathologist [facility] Magnesium 2.3 1.4 - 2.5 mg/dL Blood 09/05/2024 3:49 AM PASTORAL COUNSELOR 09/05/2024 4:02 AM PASTORAL COUNSELOR Talya Boucher MD LAB BLOOD ORDERABLES Final Res ult Performing Organization Address [facility] Phone Number [facility] [address] [place] [address] * Hemoglobin A1c (09/05/2024 3:49 AM PASTORAL COUNSELOR) Hgb A1C 5.3 4.0 - 5.6 % Estimated Average Glucose 105 mg/dL NICOLE Comment: The ADA recommends reporting an estimated Average Glucose (eAG) with all Hemoglobin A1c results using the equation derived from a study of 507 normal and diabetic adults. Minority populations were underrepresented and children were not included. (Diabetes Care 31:7472-9677, 2008). The eAG is not equivalent to a fasting glucose. Blood 09/05/2024 3:49 AM PASTORAL COUNSELOR 09/05/2024 4:02 AM PASTORAL COUNSELOR Jessica Martinez [employer]ATING ST[employer] CLE[employer]ER LAB BLOOD ORDERABLES Fin al Result Performing Organization Address [facility]/State/ZIP Co de Phone Number NICOLE [address] [facility] Department [place] [address] * Lipid panel (09/05/2024 3:49 AM PASTORAL COUNSELOR) Cholesterol 90 30 - 199 mg/dL Comment: [...] NCEP Expert Panel. Circulation 2004;110:227 3. Yogesh M et al. JOEY Cardiol. 2020 November 29;5(5):540-548. [...] last revised on 2018. Chol/HDL ratio 2 NICOLE RAMOS Blood 09/05/2024 3:49 AM PASTORAL COUNSELOR 09/05/2024 4:02 AM PASTORAL COUNSELOR us Jessica Martinez NP LAB BLOOD ORDERABLES Fin al Result NICOLE RAMOS [address] [address] Department [place] [address] * (ABNORMAL) Basic metabolic panel (09/05/2024 3:49 AM PASTORAL COUNSELOR) Sodium 143 135 - 145 mmol/L Potassium, pl 4.8 3.3 - 4.9 mmol/L [facility] Chloride 111(H) 97 - 110 mmol/L [facility] CO2 22 22 - 32 mmol/L [facility] Anion gap 10 2 - 15 mmol/L [facility] BUN 12 6 - 25 mg/dL [facility] Creatinine 0.86 0.60 - 1.10 mg/dL [facility] Glucose 134 70 - 199 mg/dL [facility] Comment: Interpretive Data Fasting glucose >/= [...] 2022. Calcium 8.3(L) 8.5 - 10.3 mg/dL [facility] Blood 09/05/2024 3:49 AM PASTORAL COUNSELOR 09/05/2024 4:02 AM PASTORAL COUNSELOR Talya Boucher MD LAB BLOOD ORDERABLES Final Res ult Performing Organization Address [facility] Co de Phone Number [facility] [address] [address] [place] [address] * POCT glucose (09/05/2024 2:19 AM PASTORAL COUNSELOR) [facility] Glucose, POC 132 70 - 199 mg/dL Blood 09/05/2024 2:19 AM PASTORAL COUNSELOR 09/05/2024 2:19 AM PASTORAL COUNSELOR Talya Boucher MD LAB POCT ORDERABLES - DEVICE F inal Result Performing Organization Address [facility] Co de Phone Number [facility] [address] [address] Department [place] [address] * Critical Care (09/04/2024 11:38 PM PASTORAL COUNSELOR) Narrative Cullen Lezama MD - 09/04/2024 11:38 PM PASTORAL COUNSELOR Fito Nation PA 09/05/2024 2:57 AM Critical [...] plan with the ICU team and other medical/medical device sales consultant staff, making frequent assessments and decisions [...] Result * POCT glucose (09/04/2024 9:48 PM PASTORAL COUNSELOR) Glucose, POC 123 70 - 199 mg/dL Blood 09/04/2024 9:48 PM PASTORAL COUNSELOR 09/04/2024 9:48 PM PASTORAL COUNSELOR Talya Boucher MD LAB POCT ORDERABLES - DEVICE F inal Result [facility] [address] [address] Department [place] [address] * POCT glucose (09/04/2024 8:41 PM PASTORAL COUNSELOR) Glucose, POC 131 70 - 199 mg/dL Blood 09/04/2024 8:41 PM PASTORAL COUNSELOR 09/04/2024 8:41 PM PASTORAL COUNSELOR Talya Boucher MD LAB POCT ORDERABLES - DEVICE F inal Result Performing Organization Address City/[facility]/ZIP Co de Phone Number NICOLE RAMOS [address] [address] [facility] [place] [address] * POCT glucose (09/04/2024 7:16 PM PASTORAL COUNSELOR) Glucose, POC 125 70 - 199 mg/dL Blood 09/04/2024 7:16 PM PASTORAL COUNSELOR 09/04/2024 7:16 PM PASTORAL COUNSELOR Talya Boucher MD LAB POCT ORDERABLES - DEVICE F inal Result Performing Organization Address [facility] de Phone Number NICOLE RAMOS [address] [address] [facility] [place] [address] * (ABNORMAL) Blood gas, arterial (09/04/2024 6:16 PM PASTORAL COUNSELOR) pH, Art 7.34(L) 7.35 - 7.45 PCO2, [...] % [facility] Blood 09/04/2024 6:16 PM PASTORAL COUNSELOR 09/04/2024 6:23 PM PASTORAL COUNSELOR Talya Boucher MD LAB BLOOD ORDERABLES Final Res ult Performing Organization Address [facility]/ZIP Co de Phone Number NICOLE RAMOS [address] [address] [facility] [address] [place], [place] [id number] * POCT glucose (09/04/2024 6:13 PM PASTORAL COUNSELOR) Glucose, POC 112 70 - 199 mg/dL Blood 09/04/2024 6:13 PM PASTORAL COUNSELOR 09/04/2024 6:13 PM PASTORAL COUNSELOR Talya Boucher MD LAB POCT ORDERABLES - DEVICE F inal Result Performing Organization Address City/[facility]/ZIP Co de Phone Number NICOLE RAMOS [address] [address] [place] [address] * Calcium, ionized, whole blood (09/04/2024 5:25 PM PASTORAL COUNSELOR) Ca, ionized, bld 4.67 4.50 - 5.10 mg/dL Blood 09/04/2024 5:25 PM PASTORAL COUNSELOR 09/04/2024 5:40 PM PASTORAL COUNSELOR Talya Boucher MD LAB BLOOD ORDERABLES Final Res ult Performing Organization Address [facility] Co de Phone Number NICOLE RAMOS [address] [place] [address] * eGFR (09/04/2024 5:25 PM PASTORAL COUNSELOR) eGFR 73 >=60 mL/min/1. 73 m2 Comment: [...] last reviewed 2021. Blood 09/04/2024 5:25 PM PASTORAL COUNSELOR 09/04/2024 5:43 PM PASTORAL COUNSELOR Talya Boucher MD LAB BLOOD ORDERABLES Final Res ult Performing Organization Address City/[facility]/ZIP Co de Phone Number NICOLE RAMOS [address] Department [facility] [employer] [place], [place] [phone] * (ABNORMAL) CBC without differential (09/04/2024 5:25 PM PASTORAL COUNSELOR) WBC 14.8(H) 3.8 - 9.9 K/cumm Hgb 11.7(L) 11.9 - 15.5 g/dL [facility] Hct 35.3(L) 35.6 - 45.5 % [facility] Plt 107(L) 150 - 400 K/cumm [facility] MPV 10.8 9.1 - 12.3 fL [facility] RBC 4.16 3.90 - 5.20 M/cumm [facility] MCV 84.9 81.3 - 96.4 fL [facility] CH MCH 28.1 27.1 - 33.3 pg [facility] MCHC 33.1 32.3 - 35.7 g/dL [facility] RDW CV 12.4 11.1 - 14.9 % [facility] RDW SD 38.2 35.7 - 48.1 fL [facility] NRBC abs 0.00 0.00 - 0.01 K/cumm [facility] CH Blood 09/04/2024 5:25 PM PASTORAL COUNSELOR 09/04/2024 5:43 PM PASTORAL COUNSELOR Talya Boucher MD LAB BLOOD ORDERABLES Final Res ult NICOLE RAMOS [address] Department [facility] [employer] [place], [place] [phone] * (ABNORMAL) Phosphorus (09/04/2024 5:25 PM PASTORAL COUNSELOR) Phosphorus, pl 1.7(L) 2.3 - 4.5 mg/dL Blood 09/04/2024 5:25 PM PASTORAL COUNSELOR 09/04/2024 5:40 PM PASTORAL COUNSELOR us Talya Boucher MD LAB BLOOD ORDERABLES Final Res ult Performing Organization Address City/[facility] Co de Phone Number FACUNDOJYOTI RAMOS [address] [address] [facility] [place] [address] * Magnesium (09/04/2024 5:25 PM PASTORAL COUNSELOR) Magnesium 2.3 1.4 - 2.5 mg/dL Blood 09/04/2024 5:25 PM PASTORAL COUNSELOR 09/04/2024 5:40 PM PASTORAL COUNSELOR Talya Boucher MD LAB BLOOD ORDERABLES Final Res ult Performing Organization Address [facility] de Phone Number NICOLE RAMOS [address] [place] [address] * (ABNORMAL) Blood gas, arterial (09/04/2024 5:25 PM PASTORAL COUNSELOR) pH, Art 7.50(H) 7.35 - 7.45 PCO2, [...] % [facility] Blood 09/04/2024 5:25 PM PASTORAL COUNSELOR 09/04/2024 5:40 PM PASTORAL COUNSELOR Talya Boucher MD LAB BLOOD ORDERABLES Final Res ult Performing Organization Address [facility] Co de Phone Number FACUNDOJYOTI RAMOS [address] [address] [facility] [place] [address] * (ABNORMAL) Basic metabolic panel (09/04/2024 5:25 PM PASTORAL COUNSELOR) Sodium 141 135 - 145 mmol/L Potassium, pl 4.8 3.3 - 4.9 mmol/L [facility] Chloride 109 97 - 110 mmol/L [facility] CO2 21(L) 22 - 32 mmol/L [facility] Anion gap 11 2 - 15 mmol/L [facility] BUN 12 6 - 25 mg/dL [facility] Creatinine 0.93 0.60 - 1.10 mg/dL [facility] Glucose 118 70 - 199 mg/dL [facility] Comment: Interpretive Data Fasting glucose >/= [...] 2022. Calcium 8.5 8.5 - 10.3 mg/dL [facility] Blood 09/04/2024 5:25 PM PASTORAL COUNSELOR 09/04/2024 5:40 PM PASTORAL COUNSELOR Talya Boucher MD LAB BLOOD ORDERABLES Final Res ult Performing Organization Address [facility] Co de Phone Number NICOLE [address] [place] [address] * POCT glucose (09/04/2024 5:06 PM PASTORAL COUNSELOR) Glucose, POC 116 70 - 199 mg/dL Blood 09/04/2024 5:06 PM PASTORAL COUNSELOR 09/04/2024 5:06 PM PASTORAL COUNSELOR Tayla Boucher MD LAB POCT ORDERABLES - DEVICE F inal Result Performing Organization Address City/[facility]/ZIP Co de Phone Number [facility] [address] [address] [facility] [place] [address] * POCT glucose (09/04/2024 3:55 PM PASTORAL COUNSELOR) Glucose, POC 101 70 - 199 mg/dL Blood 09/04/2024 3:55 PM PASTORAL COUNSELOR 09/04/2024 3:55 PM PASTORAL COUNSELOR Talya Boucher MD LAB POCT ORDERABLES - DEVICE F inal Result Performing Organization Address [facility]/State/ZIP Co de Phone Number NICOLE RAMOS [address] [address] Department [place] [address] * Blood culture Blood (09/04/2024 3:42 PM PASTORAL COUNSELOR) Report Final Report: No growth Comment:Testing performed by : [facility], [address], [place]., [address] Blood 09/04/2024 3:42 PM PASTORAL COUNSELOR 09/04/2024 6:05 PM PASTORAL COUNSELOR Narrative NICOLE - 09/09/2024 7:00 AM PASTORAL COUNSELOR From a different site than #1. Collection->Peripheral [...] performance characteristics have been verified by the [facility]. For questions about this culture, contact the Microbiology Laboratory at [phone]. Interpretive data was last revised on 24. us Jessica Martinez NP LAB MICROBIOLOGY - GENER AL ORDERABLES Final Result NICOLE RAMOS [address] Department [place] [address] * Blood culture Blood (09/04/2024 3:42 PM PASTORAL COUNSELOR) Report Final Report: No growth Comment:Testing performed by : [facility], [address], [place]., [address] Blood 09/04/2024 3:42 PM PASTORAL COUNSELOR 09/04/2024 6:05 PM PASTORAL COUNSELOR Narrative [facility] - 09/09/2024 7:00 AM PASTORAL COUNSELOR Collection->Peripheral 1. Blood cultures are incubated for [...] performance characteristics have been verified by the [facility]. For questions about this culture, contact the Microbiology Laboratory at [phone]. Interpretive data was last revised on 24. us Jessica Martinez NP LAB MICROBIOLOGY - [facility] ORDERABLES Final Result Performing Organization Address City/[facility]/ZIP Co de Phone Number NICOLE RAMOS [address] [address] Department [place] [address] * Calcium, ionized, whole blood (09/04/2024 3:21 PM PASTORAL COUNSELOR) Ca, ionized, bld 4.68 4.50 - 5.10 mg/dL Blood 09/04/2024 3:21 PM PASTORAL COUNSELOR 09/04/2024 3:29 PM PASTORAL COUNSELOR Talya Boucher MD LAB BLOOD ORDERABLES Final Res ult Performing Organization Address [facility]/ZIP Co de Phone Number FACUNDOJYOTI [address] [address] Department [place] [address] * (ABNORMAL) Blood gas, arterial (09/04/2024 3:21 PM PASTORAL COUNSELOR) pH, Art 7.48(H) 7.35 - 7.45 PCO2, [...] % [facility] Blood 09/04/2024 3:21 PM PASTORAL COUNSELOR 09/04/2024 3:29 PM PASTORAL COUNSELOR Jessica Martinez NP LAB BLOOD ORDERABLES Fin al Result Performing Organization Address [facility] Co de Phone Number NICOLE [address] [address] [place] [address] * POCT glucose (09/04/2024 2:48 PM PASTORAL COUNSELOR) Glucose, POC 91 70 - 199 mg/dL Blood 09/04/2024 2:48 PM PASTORAL COUNSELOR 09/04/2024 2:48 PM PASTORAL COUNSELOR Talya Boucher MD LAB POCT ORDERABLES - DEVICE F inal Result Performing Organization Address City/[facility] Co de Phone Number [facility] [address] [address] [place] [address] * POCT glucose (09/04/2024 1:49 PM PASTORAL COUNSELOR) Glucose, POC 80 70 - 199 mg/dL Blood 09/04/2024 1:49 PM PASTORAL COUNSELOR 09/04/2024 1:49 PM PASTORAL COUNSELOR Talya Boucher MD LAB POCT ORDERABLES - DEVICE F inal Result Performing Organization Address City/State/ZIP Co ga Phone Number NICOLE [address] Department [place] [address] * Critical Care (09/04/2024 1:12 PM PASTORAL COUNSELOR) Narrative Lenin Huff MD - 09/04/2024 1:12 PM PASTORAL COUNSELOR Jessica Martinez NP 09/04/2024 1:13 PM Critical [...] plan with the ICU team and other medical/medical device sales consultant staff, making frequent assessments and decisions [...] 1 View - Portable (09/04/2024 12:57 PM PASTORAL COUNSELOR) Anatomical Region Laterality Modality Body, Chest N/A Computed Radiogr aphy 09/04/2024 1:04 PM PASTORAL COUNSELOR Impressions 09/04/2024 1:04 PM PASTORAL COUNSELOR Postsurgical changes. Superior mediastinal widening. Fluid and atelectasis left base. No definite failure or pneumothorax. Nasogastric tube should BE advanced further into the stomach. Electronically signed by: Dick Renteria M.D. Narrative 09/04/2024 1:04 PM PASTORAL COUNSELOR EXAMINATION: XR CHEST 1 VIEW DATE: 09/04/2024 [...] gastroesophageal junction and should BE advanced further. [place] catheter entering the right IJ approach directed [...] gastroesophageal junction and should BE advanced further. [place] catheter entering the right IJ approach directed to the main pulmonary artery. IMPRESSION: Postsurgical changes. Superior mediastinal widening. Fluid and atelectasis left base. No definite failure or pneumothorax. Nasogastric tube should BE advanced further into the stomach. Electronically signed by: Dick Renteria M.D. Talya Boucher MD IMG XR PROCEDURES Final Result * Surgical pathology (09/04/2024 12:35 PM PASTORAL COUNSELOR) Tissue specimen (specimen) (Heart Valve) 09/04/2024 9:46 AM PASTORAL COUNSELOR Narrative PATHOLOGY - 09/05/2024 10:09 AM PASTORAL COUNSELOR EPIC results best viewed via link to PDF [facility] Department of Pathology [address] [place], [place] [id number] Note to Patients: This report may contain [...] Final Report Patient Name: ZURI ACEVES Address: [address] [place] [address] Gender: F : 1970 (Age: 54) Service: Cardiothoracic Location: [facility] Hospital #: [id number] Patient Type: IP Taken: 09/04/2024 Received: 09/04/2024 Accessioned: 09/04/2024 Reported: [...] single formalin filled container labeled with ZURI ELLIS and aortic valve leaflets .It is a [...] determined by the Surgical Pathology Department at [facility] as part of an ongoing quality assurance consultant program and in compliance with federally mandated [...] characteristics determined by the Surgical Pathology Department [facility]. It has not been cleared or approved by the U. S. Food and Drug Administration. Note for decalcified specimens: This assay has not been validated on decalcified tissues. Results should be interpreted with caution given the possibility of false negativity on decalcified specimens Talya Boucher MD LAB PATHOLOGY ORDERABLES Final Result PATHOLOGY [address] [place] [address] * eGFR (09/04/2024 12:27 PM PASTORAL COUNSELOR) eGFR 70 >=60 mL/min/1. 73 m2 Comment: [...] reviewed 2021. Blood 09/04/2024 12:2 7 PM PASTORAL COUNSELOR 09/04/2024 12:34 PM PASTORAL COUNSELOR Talya Boucher MD LAB BLOOD ORDERABLES Final Res ult Performing Organization Address [facility] Co de Phone Number NICOLE [address] [place] [address] * (ABNORMAL) aPTT (09/04/2024 12:27 PM PASTORAL COUNSELOR) aPTT 26(L) 28 - 38 sec Comment: Interpretive Data Heparin therapeutic range: 66.0 - 100.0 seconds. Range based on correlation with therapeutic heparin activity range of 0.3 - 0.7 Units/mL. Current interpretive data was last revised on 2023. Blood 09/04/2024 12:2 7 PM PASTORAL COUNSELOR 09/04/2024 12:34 PM PASTORAL COUNSELOR Talya Boucher MD LAB BLOOD ORDERABLES Final Res ult Performing Organization Address [facility] Co de Phone Number [facility] [address] [address] [place], [place] [phone] * Protime-INR (09/04/2024 12:27 PM PASTORAL COUNSELOR) PT 12.1 9.7 - 13.0 sec INR 1.12 0.90 - 1.20 NICOLE Comment: Interpretive data Oral anticoagulant therapeutic ranges: Venous thromboembolism prophylaxis or treatment: 2.0-3.0 CARDIOLOGY Standard range: 2.0-3.0 High-intensity range: 2.5-3.5 Refer to indication-specific guidelines for appropriate target ranges for prosthetic heart valve replacement. Current interpretive data was last revised on 2019. Blood 09/04/2024 12:2 7 PM PASTORAL COUNSELOR 09/04/2024 12:34 PM PASTORAL COUNSELOR Talya Boucher MD LAB BLOOD ORDERABLES Final Res ult Performing Organization Address City/[facility]/ZIP Co de Phone Number NICOLE RAMOS [address] [place] [address] * (ABNORMAL) CBC without differential (09/04/2024 12:27 PM PASTORAL COUNSELOR) WBC 32.6(H) 3.8 - 9.9 K/cumm Hgb 11.9 11.9 - 15.5 g/dL [facility] Hct 36.5 35.6 - 45.5 % [facility] Plt 130(L) 150 - 400 K/cumm [facility] MPV 10.3 9.1 - 12.[address] [facility] RBC 4.18 3.90 - 5.20 M/cumm [facility] MCV 87.3 81.3 - 96.[address] [facility] MCH 28.5 27.1 - 33.3 pg [facility] MCHC 32.6 32.3 - 35.7 g/dL [facility] RDW CV 12.3 11.1 - 14.9 % [facility] RDW SD 39.7 35.7 - 48.[address] [facility] NRBC abs 0.00 0.00 - 0.01 K/cumm [facility] Blood 09/04/2024 12:2 7 PM PASTORAL COUNSELOR 09/04/2024 12:34 PM PASTORAL COUNSELOR Talya Boucher MD LAB BLOOD ORDERABLES Final Res ult Performing Organization Address [facility]/ZIP Co de Phone Number NICOLE RAMOS [address] [employer] [place], [place] [phone] * Phosphorus (09/04/2024 12:27 PM PASTORAL COUNSELOR) Phosphorus, pl 2.7 2.3 - 4.5 mg/dL Blood 09/04/2024 12:2 7 PM PASTORAL COUNSELOR 09/04/2024 3:18 PM PASTORAL COUNSELOR Talya Boucher MD LAB BLOOD ORDERABLES Final Res ult Performing Organization Address [facility] Co de Phone Number FACUNDOJYOTI RAMOS [address] [address] [facility] [place] [address] * Phosphorus (09/04/2024 12:27 PM PASTORAL COUNSELOR) Phosphorus, pl 2.7 2.3 - 4.5 mg/dL Blood 09/04/2024 12:2 7 PM PASTORAL COUNSELOR 09/04/2024 12:34 PM PASTORAL COUNSELOR Jessica Martinez NP LAB BLOOD ORDERABLES Fin al Result Performing Organization Address [facility] Co de Phone Number FACUNDOJYOTI RACHEL [address] [address] [place] [address] * (ABNORMAL) Magnesium (09/04/2024 12:27 PM PASTORAL COUNSELOR) Magnesium 2.8(H) 1.4 - 2.5 mg/dL Blood 09/04/2024 12:2 7 PM PASTORAL COUNSELOR 09/04/2024 3:18 PM PASTORAL COUNSELOR Talya Boucher MD LAB BLOOD ORDERABLES Final Res ult Performing Organization Address [facility] de Phone Number FACUNDOJYOTI RAMOS [address] [address] [facility] [place] [address] * (ABNORMAL) Blood gas, arterial (09/04/2024 12:27 PM PASTORAL COUNSELOR) pH, Art 7.28(L) 7.35 - 7.45 PCO2, [...] Art (Measured) 98(H) 90 - 95 % [facility] Blood 09/04/2024 12:2 7 PM PASTORAL COUNSELOR 09/04/2024 12:35 PM PASTORAL COUNSELOR Talya Boucher MD LAB BLOOD ORDERABLES Final Res ult [facility] [address] [address] Department [place] [address] * (ABNORMAL) Basic metabolic panel (09/04/2024 12:27 PM PASTORAL COUNSELOR) Sodium 142 135 - 145 mmol/L Potassium, pl 3.6 3.3 - 4.9 mmol/L [facility] Chloride 110 97 - 110 mmol/L [facility] CO2 20(L) 22 - 32 mmol/L [facility] Anion gap 12 2 - 15 mmol/L [facility] BUN 11 6 - 25 mg/dL [facility] Creatinine 0.96 0.60 - 1.10 mg/dL [facility] Glucose 140 70 - 199 mg/dL [facility] Comment: Interpretive Data Fasting glucose >/= [...] 2022. Calcium 8.1(L) 8.5 - 10.3 mg/dL [facility] Blood 09/04/2024 12:2 7 PM PASTORAL COUNSELOR 09/04/2024 12:34 PM PASTORAL COUNSELOR Talya Boucher MD LAB BLOOD ORDERABLES Final Res ult [facility] RAM[facility] [address] [address] Department [place] [address] * POCT glucose (09/04/2024 11:55 AM PASTORAL COUNSELOR) Glucose, POC 138 70 - 199 mg/dL Blood 09/04/2024 11:5 5 AM PASTORAL COUNSELOR 09/04/2024 11:55 AM PASTORAL COUNSELOR Talya Boucher MD LAB POCT ORDERABLES - DEVICE F inal Result NICOLE RAMOS [address] Department [place] [address] * (ABNORMAL) POC Blood Gas and Chemistries, Arterial - (09/04/2024 11:04 AM PASTORAL COUNSELOR) pH, Art POC 7.34(L) 7.35 - 7.45 [...] [facility] Blood 09/04/2024 11:0 4 AM PASTORAL COUNSELOR 09/04/2024 11:04 AM PASTORAL COUNSELOR Talya Boucher MD LAB POCT ORDERABLES - DEVICE F inal Result Performing Organization Address City/[facility] Co de Phone Number NICOLE RAMOS [address] [address] [facility] [place] [address] * POC Activated Clotting Time, High Range (09/04/2024 11:00 AM PASTORAL COUNSELOR) Pathologist [facility] ACT 107 87 - 138 sec Blood 09/04/2024 11:0 0 AM PASTORAL COUNSELOR 09/04/2024 11:00 AM PASTORAL COUNSELOR Talya Boucher MD LAB BLOOD ORDERABLES Final Res ult Performing Organization Address [facility] de Phone Number NICOLE RAMOS [address] [address] [place] [address] * (ABNORMAL) POC Blood Gas and Chemistries, Arterial - (09/04/2024 10:20 AM PASTORAL COUNSELOR) Pathologist [facility] pH, Art POC 7.32(L) 7.35 - 7.45 [...] [facility] Blood 09/04/2024 10:2 0 AM PASTORAL COUNSELOR 09/04/2024 10:20 AM PASTORAL COUNSELOR Talya Boucher MD LAB POCT ORDERABLES - DEVICE F inal Result Performing Organization Address City/[facility]/ZIP Co de Phone Number FACUNDOJYOTI RAMOS [address] [address] Department [facility] [employer] [place], [place] [phone] * (ABNORMAL) POC Activated Clotting Time, High Range (09/04/2024 10:19 AM PASTORAL COUNSELOR) ACT 442(H) 87 - 138 sec Blood 09/04/2024 10:1 9 AM PASTORAL COUNSELOR 09/04/2024 10:19 AM PASTORAL COUNSELOR Talya Boucher MD LAB BLOOD ORDERABLES Final Res ult Performing Organization Address [facility] Co de Phone Number NICOLE RAMOS [address] [place] [address] * (ABNORMAL) POC Blood Gas and Chemistries, Arterial - (09/04/2024 9:57 AM PASTORAL COUNSELOR) pH, Art POC 7.33(L) 7.35 - 7.45 [...] g/dL [facility] Blood 09/04/2024 9:57 AM PASTORAL COUNSELOR 09/04/2024 9:57 AM PASTORAL COUNSELOR Talya Boucher MD LAB POCT ORDERABLES - DEVICE F inal Result Performing Organization Address [facility] de Phone Number [facility] [address] [place] [address] * (ABNORMAL) Platelet count (09/04/2024 9:56 AM PASTORAL COUNSELOR) Pathologist [facility] Plt 123(L) 150 - 400 K/cumm Blood 09/04/2024 9:56 AM PASTORAL COUNSELOR 09/04/2024 10:10 AM PASTORAL COUNSELOR Talya Boucher MD LAB BLOOD ORDERABLES Final Res ult Performing Organization Address [facility] de Phone Number [facility] [address] [address] [place] [address] * (ABNORMAL) POC Blood Gas and Chemistries, Arterial - (09/04/2024 9:55 AM PASTORAL COUNSELOR) pH, Art POC 7.35 7.35 - 7.45 [...] g/dL [facility] Blood 09/04/2024 9:55 AM PASTORAL COUNSELOR 09/04/2024 9:55 AM PASTORAL COUNSELOR Talya Boucher MD LAB POCT ORDERABLES - DEVICE F inal Result Performing Organization Address City/[facility]/ZIP Co de Phone Number NICOLE RAMOS [address] [address] [place], [place] [phone] * (ABNORMAL) POC Activated Clotting Time, High Range (09/04/2024 9:54 AM PASTORAL COUNSELOR) ACT 526(H) 87 - 138 sec Blood 09/04/2024 9:54 AM PASTORAL COUNSELOR 09/04/2024 9:54 AM PASTORAL COUNSELOR Talya Boucher MD LAB BLOOD ORDERABLES Final Res ult Performing Organization Address City/[facility]/ZIP Co de Phone Number NICOLE RAMOS [address] [address] [place] [address] * (ABNORMAL) POC Blood Gas and Chemistries, Arterial - (09/04/2024 9:19 AM PASTORAL COUNSELOR) pH, Art POC 7.32(L) 7.35 - 7.45 [...] g/dL [facility] Blood 09/04/2024 9:19 AM PASTORAL COUNSELOR 09/04/2024 9:19 AM PASTORAL COUNSELOR Talya Boucher MD LAB POCT ORDERABLES - DEVICE F inal Result [facility] [address] [address] [place] [address] * (ABNORMAL) POC Activated Clotting Time, High Range (09/04/2024 9:18 AM PASTORAL COUNSELOR) ACT 526(H) 87 - 138 sec Blood 09/04/2024 9:18 AM PASTORAL COUNSELOR 09/04/2024 9:18 AM PASTORAL COUNSELOR us Talya Boucher MD LAB BLOOD ORDERABLES Final Res ult NICOLE [address] [facility] Department [place] [address] * BW AN SHEATH INTRODUCER PERFORMABLE, PULMONARY ARTERY CATH (09/04/2024 9:15 AM PASTORAL COUNSELOR) Narrative Enoc Guerrero AA - 09/04/2024 9:15 AM PASTORAL COUNSELOR Enoc Guerrero AA 09/04/2024 9:15 AM Central [...] MD ANESTHESIA ORDERABLES Final Resu lt * CT AN ELECTIVE ENDOTRACHEAL AIRWAY (09/04/2024 9:14 AM PASTORAL COUNSELOR) Narrative Enoc Guerrero AA - 09/04/2024 9:14 AM PASTORAL COUNSELOR Enoc Guerrero AA 09/04/2024 9:15 AM Airway [...] lt * Arterial Line (09/04/2024 9:13 AM PASTORAL COUNSELOR) Narrative Enoc Guerrero AA - 09/04/2024 9:13 AM PASTORAL COUNSELOR Enoc Guerrero AA 09/04/2024 9:14 AM Arterial [...] Clotting Time, High Range (09/04/2024 8:53 AM PASTORAL COUNSELOR) ACT 448(H) 87 - 138 sec Blood 09/04/2024 8:53 AM PASTORAL COUNSELOR 09/04/2024 8:53 AM PASTORAL COUNSELOR Talya Boucher MD LAB BLOOD ORDERABLES Final Res ult NICOLE [address] [facility] Department [place] [address] * SCOTTY (09/04/2024 8:28 AM PASTORAL COUNSELOR) Anatomical Region Laterality Modality Other Narrative 09/04/2024 8:28 AM PASTORAL COUNSELOR Augie Gannon MD 09/04/2024 8:30 AM SCOTTY Date/time: 09/04/2024 8:28 AM Staff: Supervising anesthesiologist: Augie Gannno MD Performed by: Anesthesiologist: Augie Gannon MD [...] inferior: hypokinetic 16- Apical septal: hypokinetic 17- Polo: hypokinetic Valves: Aortic Valve: Annulus: normal (22 [...] and Chemistries, Arterial - (09/04/2024 8:21 AM PASTORAL COUNSELOR) pH, Art POC 7.43 7.35 - 7.45 [...] g/dL [facility] Blood 09/04/2024 8:21 AM PASTORAL COUNSELOR 09/04/2024 8:21 AM PASTORAL COUNSELOR Talya Boucher MD LAB POCT ORDERABLES - DEVICE F inal Result Performing Organization Address [facility]/ZIP Co de Phone Number NICOLE [address] [address] [place] [address] * POC Activated Clotting Time, High Range (09/04/2024 8:18 AM PASTORAL COUNSELOR) ACT 109 87 - 138 sec Blood 09/04/2024 8:18 AM PASTORAL COUNSELOR 09/04/2024 8:18 AM PASTORAL COUNSELOR Talya Boucher MD LAB BLOOD ORDERABLES Final Res ult Performing Organization Address [facility]/ZIP Co de Phone Number [facility] [address] [address] [place] [address] * Check Sample (09/04/2024 6:51 AM PASTORAL COUNSELOR) ABO Rh B Positive [facility] OTHER 09/04/2024 6:51 AM PASTORAL COUNSELOR 09/04/2024 6:51 AM PASTORAL COUNSELOR Talya Boucher MD LAB BLOOD ORDERABLES Final Res ult [facility] [address] [place] [address] CH * POCT hCG, urine (09/04/2024 6:30 AM PASTORAL COUNSELOR) HCG, ur, POC Negative Negative Lot Number [id number] QC Backgroud Clear Acceptable QC Control Line Acceptable Urine 09/04/2024 6:30 AM PASTORAL COUNSELOR Talya Boucher MD POINT OF CARE TEST ORDERABLES Final Result * Prepare RBC: 4 Units (09/04/2024 5:35 AM PASTORAL COUNSELOR) Product code [id number] CERNER [facility] Unit Number [id number] 5-4 [facility]ERNER [facility] Product Blood Type BPOS CERNER [facility] Dispense Status RETURNED CERNER [facility] Product code K0132M83 Unit Number [id number] 0-R [facility] Product Blood Type BPOS CERN[facility] Dispense Status RETURNED [facility]ERNER [facility] Product code Y9420O24 CERNER CH Unit Number [id number] 8-E [facility]ERN[facility] Product Blood Type BPOS CERN[facility] Dispense Status RETURNED CERNER CH Product code F6360U55 CERNER CH Unit Number [id number] 6-V [facility]ERNER [facility] Product Blood Type BPOS [facility]ERNER [facility] Dispense Status RETURNED CERNER CH Blood 09/04/2024 5:35 AM PASTORAL COUNSELOR Narrative CERNER CH - 09/05/2024 12:07 AM PASTORAL COUNSELOR Specify Procedure:->AVR Are special requirements needed? (All products are leukoreduced and CMV- safe)- >No Date required:-[id number] LRRBC # of [id number] Reasons:-Hold for procedure (specify procedure)} Leeann Odom NP BLOOD BANK PRODUCT ORDERA BLES Final Result [facility]AC[facility] [address] [place] [address] from Last 3 Months [facility] [place] [address] Medio ACCESS OOS Medio ACCESS OOS Member Subscriber Plan / Payer (Ef fective 2023-Present) Name:Zuri Aceves Relation to Subscriber:Self Name:Zuri Aceves Payer ID:[id number] (NAIC) Type:HUSEYIN TRUJILLO Address: [address] [place] [id number] Advance Directives For more information, please contact: [phone] * Full Code (Latest Code Status on File) Date Activated Date Inactivated Comments 09/04/2024 12:23 PM 09/08/2024 9:18 PM Healthcare Agents on File Name Relationship Healthcare Agent Relationshi p Communication Nitesh Ellis Spouse Health Care Agent Care Teams Corporate Law Specialist Relationship Specialty Start Date End Date Geovany Wong DO [address] [place] [address] PCP - General Internal Medicine 09/06/24 Dl Phillips MD Referring Physician Cardiology 12/23/22 Severino Aden MD [address] [place] [address] Consulting Physician Cardiothoracic Surgery 12/23/22 Talya Boucher MD [id number] [place] [address] Surgeon Cardiothoracic Surgery 09/08/24 Qasim Ross MD [address] [place] [address] Consulting Physician Cardiology 09/08/24
--- OUTSIDE RECORDS SUMMARY | 2024-11-25 12:25 | XMS_ITS | Referral Summary ---
Author Organization [facility] [address] Address [address] [place] [address] Care Team Providers Care Therapy Teacher Name Role Phone Dl Phillips MD Unavailable Severino Aden MD Unavailable [phone] Geovany Wong DO Primary Care Provider [phone] Talya Boucher MD Unavailable [phone] Qasim Ross MD Unavailable Encounters Date Type Department Care Team Description 10/04/2024 2:00 PM OVERSEAMER Office Visit [facility] Surgery [address] [place] [address] [address] [place] [address] Leeann Odom NP S/P AVR (aortic valve replacement) (Primary Dx) 09/26/2024 Orders Only [facility] Surgery [address] [place] [address] [address] [place] [address] Cynthia Haley NP 09/26/2024 Documentation [facility] Surgery [address] [place] [address] [address] [place] [address] Cynthia Haley NP Anticoagulation 09/26/2024 Documentation [facility] Surgery [address] [place] [address] [address] [place] [address] Leeann Odom NP RTW Form 09/26/2024 Orders Only [facility] Surgery [address] [place] [address] [address] [place] [address] Leeann Odom NP H/O heart valve replacement with mechanical valve (Primary Dx) 09/26/2024 8:00 AM OVERSEAMER Home Care Visit [address] [place] [address] Jaclyn Nava RN SN NON OASIS DISCHARGE 09/25/2024 Orders Only [facility] Cardiology [address] [place] [address] [place] [phone] Qasim Ross MD 09/25/2024 Telephone [facility]iology [address] [place] [address] [place] [phone] Qasim Ross MD 09/25/2024 10:30 AM OVERSEAMER Office Visit [place] [address] [place] [phone] Qasim Ross MD H/O mechanical aortic valve replacement (Primary Dx) 09/24/2024 Orders Only [facility] Surgery [address] [place] [address] [address] [place] [address] Cynthia Haley NP 09/21/2024 Documentation [facility] Surgery [address] [place] [address] [address] [place] [address] Leeann Odom NP INR Management 09/21/2024 10:00 AM OVERSEAMER Home Care Visit [address] [place] [address] Jaclyn Nava RN SN HOME VISIT 09/18/2024 Documentation [facility] Surgery [address] [place] [address] [address] [place] [address] Leeann Odom NP 09/18/2024 9:00 AM OVERSEAMER Home Care Visit [address] [place] [address] Jaclyn Nava RN SN HOME VISIT 09/14/2024 11:10 AM OVERSEAMER - 09/14/2024 11:59 PM OVERSEAMER Hospital Encounter [address] [address] Discharge Disposition: Discharge to home or self care 09/14/2024 Anticoagulation Telephone Call [facility] Surgery [address] [place] [address] [address] [place] [address] Joey Oconnor NP 09/14/2024 Documentation [facility] Surgery [address] [place] [address] [address] [place] [address] Cynthia Haley NP Anticoagulation 09/14/2024 9:00 AM OVERSEAMER Home Care Visit [address] [place] [address] Jess Aguirre RN SN HOME VISIT 09/13/2024 5:00 PM OVERSEAMER Ancillary Procedure [facility] Imaging at [address] [phone] Left shoulder pain, unspecified chronicity 09/13/2024 4:45 PM OVERSEAMER Ancillary Procedure [facility] Imaging at [address] [address] Aortic stenosis due to bicuspid aortic valve 09/13/2024 Orders Only [facility] Surgery [address] [place] [address] [address] [place] [address] Cynthia Haley NP Aortic stenosis due to bicuspid aortic valve (Primary Dx); Left shoulder pain, unspecified chronicity 09/11/2024 [facility] Post Discharge Follow up phone call [facility] [address] [place] [address] Shagufta Ureña RN 09/11/2024 Documentation [facility] Surgery [address] [place] [address] [address] [place] [phone] Cynthia Haley NP Anticoagulation 09/11/2024 Plan of Care Documentation [address] [place] [address] 09/11/2024 11:00 AM OVERSEAMER Home Care Visit [facility] [address] [facility] [address] [place] [address] Kevin Glover, BERTHA SN NON OASIS START OF CARE 09/10/2024 Telephone [facility] [address] [place] [address] Naga Devi MA 09/10/2024 Orders Only [facility] Surgery [address] [facility] [address] [place] [address] Cynthia Haley NP 09/08/2024 Home Care Visit [facility] [address] [facility] [address] [facility] [address] [place] [address] Katy Clark RN SN TRIAGE ENCOUNTER 09/04/2024 5:32 AM OVERSEAMER - 09/08/2024 5:00 PM OVERSEAMER Hospital Encounter [facility] [id number] [place] [address] Talya Boucher MD Aortic stenosis, severe (Primary Dx); Aortic valve stenosis, etiology of cardiac valve disease unspecified; Aortic regurgitation due to bicuspid aortic valve Discharge Disposition: Discharge to home, [facility] 09/04/2024 7:30 AM OVERSEAMER - 09/04/2024 1:00 PM OVERSEAMER Surgery [facility] Operating Room [id number] [place] [address] Talya Boucher MD REPLACEMENT AORTIC VALVE/270MIN 09/04/2024 7:35 AM OVERSEAMER Anesthesia Event [facility] Operating Room [address] [place] [address] Augie Gannon MD Ware, Melita C., TIM from Last 3 Months Allergies Active Allergy [...] 70 mg capsuleIndications :Attention-Deficit Hyperactivity Disorder 11/26/19 Active venlafaxine XR (EFFEXOR-XR) 150 mg 24 [...] daily for 5 days 5 tablet 09/08/19 Active Additional Information Patient not taking.Reported on [...] by mouth daily 15 tablet 1 09/08/19 Active Additional Information Patient not taking.Reported on [...] mg total) by mouth daily 75 tablet 09/18/192025 Active Additional Information Patient not taking.Reported on [...] patient was located at home in the [facility]. The patient visit started at 10:15 [...] and/or responsible for any applicable copayments. @SIGENC2@ [facility]@ Assessment & Plan (10/15/2021 8:38 AM CDT): [...] the records for a blood work from [facility] accordingly. She does not have any personal [...] deep vein thrombosis (DVT) of lower extremity ([facility]/HCC) 07/28/2016 Overview (11/06/2016): Chronic deep vein thrombosis [...] the records for a blood work from [facility] accordingly. She does not have any personal [...] experiencing loneliness or isolatio n Never 09/11/2024 [facility] Utilities Answer Date Recorded In the past 12 months has th e [employer], gas, oil, or water [employer] threatened to shut off services in your [...] often do you attend chur ch or methodist services? Never 09/06/2024 Do you belong to [...] any time in the past 12 m [facility], were you homeless or living in [...] on file Legal Sex Female 2:03 AM OVERSEAMER Gender Identity Not on file Sexual Orientation Not on file Last Filed Vital Signs Vital Sign Reading Time Taken Comments Blood Pressure 127/74 10/04/2024 2:21 PM OVERSEAMER Pulse 80 10/04/2024 2:21 PM OVERSEAMER Temperature 36.5 C (97.7 F) 09/26/2024 8:47 AM OVERSEAMER Respiratory Rate 14 10/04/2024 2:21 PM OVERSEAMER Oxygen Saturation 98% 10/04/2024 2:21 PM OVERSEAMER Inhaled Oxygen Concentration - - Weight 106.1 kg (234 lb) 10/04/2024 2:21 PM OVERSEAMER Height 162.6 cm (5' 4 ) 10/04/2024 2:21 PM OVERSEAMER Body Mass Index 40.17 10/04/2024 2:21 PM OVERSEAMER Plan of Treatment Not on file Medical Devices Implanted Type Area Cytology Laboratory Manager Device Identifier Shelf Expiration Date Model / Serial / Lot [employer] Plate Bone Low Profile 6 Hole H Shape Sternum Ti 115.102.06 - [id number] Implanted:Qt y: 1 on 09/04/2024 by Talya Boucher MD at [facility] Plate N/A: Sternum [employer] 115.102.0 6 / / [employer] Plate Bone Low Profile 4 Hole Box Sternum Ti 115.103.04 - [id number] Implanted:Qt y: 1 on 09/04/2024 by Talya Boucher MD at [facility] Plate N/A: Sternum [employer] 115.103.0 4 / / [employer] Plate Bone Low Profile 6 Hole O Shape Sternum Ti 115.104.06 - [id number] Implanted:Qt y: 1 on 09/04/2024 by Talya Boucher MD at [facility] Plate N/A: Sternum [employer] 115.104.0 6 / / [employer] Master-Serie s 23mm 18.6mm Cuff Leaflet Open Control Torque 23aj-501 - [id number] - [id number] Implanted:Qt y: 1 on 09/04/2024 by Talya Boucher MD at [facility] Prosthetic Valve N/A: Aortic Valve [employer] 02/26/2026 23AJ-501 / [id number] / 00 [employer] Screw Bone Slf Drl Full Thread Locking 3.5x14mm Ti 100.035.14 - [id number] Implanted:Qt y: 10 on 09/04/2024 by Talya Boucher MD at [facility] Screw N/A: Sternum [employer] 100.035.1 4 / / [employer] Screw Bone Slf Drl Full Thread Locking 3.5x16mm Ti 100.035.16 - [id number] Implanted:Qt y: 6 on 09/04/2024 by Talya Boucher MD at [facility] Screw N/A: Sternum [employer] 100.035.1 6 / / Procedures Procedure Name Priority Date/Time Associated Diagnosis Comments PROTIME-INR Routine 10/31/2024 6:06 AM CDT H/O heart valve replacement with mechanical valve PROTIME-INR Routine 10/03/2024 6:38 AM OVERSEAMER H/O heart valve replacement with mechanical valve POCT PROTHROMBIN TIME/INR Routine 09/26/2024 8:41 AM OVERSEAMER POCT PROTHROMBIN TIME/INR Routine 09/21/2024 10:24 AM OVERSEAMER POCT PROTHROMBIN TIME/INR Routine 09/18/2024 9:04 AM OVERSEAMER POCT PROTHROMBIN TIME/INR Routine 09/14/2024 11:31 AM OVERSEAMER EGFR Routine 09/14/2024 11:10 AM OVERSEAMER DIFFERENTIAL AUTO Routine 09/14/2024 11:10 AM OVERSEAMER CBC WITH AUTO DIFFERENTIAL Routine 09/14/2024 11:10 AM OVERSEAMER COMPREHENSIVE METABOLIC PANEL Routine 09/14/2024 11:10 AM OVERSEAMER XR SHOULDER LEFT 2 OR MORE VIEWS Schedule Routine, Read Routine (OP Routine) 09/13/2024 4:37 PM OVERSEAMER Left shoulder pain, unspecified chronicity XR CHEST PA LATERAL 2 VIEWS Schedule Routine, Read Routine (OP Routine) 09/13/2024 4:28 PM OVERSEAMER Aortic stenosis due to bicuspid aortic valve POCT PROTHROMBIN TIME/INR Routine 09/11/2024 11:59 AM OVERSEAMER TRANSTHORACIC ECHO (TTE) COMPLETE W DOPPLER/CF WO CONTRAST STAT 09/08/2024 5:45 PM OVERSEAMER XR CHEST 1 VIEW IP Routine 09/08/2024 6:17 AM OVERSEAMER EGFR Routine 09/08/2024 4:43 AM OVERSEAMER BASIC METABOLIC PANEL Routine 09/08/2024 4:43 AM OVERSEAMER CBC WITHOUT DIFFERENTIAL Routine 09/08/2024 4:43 AM OVERSEAMER PROTIME-INR Routine 09/08/2024 4:43 AM OVERSEAMER XR CHEST 1 VIEW IP Routine 09/07/2024 5:30 AM OVERSEAMER EGFR Routine 09/07/2024 4:49 AM OVERSEAMER BASIC METABOLIC PANEL Routine 09/07/2024 4:49 AM OVERSEAMER CBC WITHOUT DIFFERENTIAL Routine 09/07/2024 4:49 AM OVERSEAMER PROTIME-INR Routine 09/07/2024 4:49 AM OVERSEAMER APTT STAT 09/06/2024 2:10 PM OVERSEAMER PROTIME-INR STAT 09/06/2024 2:10 PM OVERSEAMER EGFR Timed 09/06/2024 12:52 PM OVERSEAMER MAGNESIUM Timed 09/06/2024 12:52 PM OVERSEAMER CALCIUM,IONIZED, WHOLE BLOOD Timed 09/06/2024 12:52 PM OVERSEAMER RENAL FUNCTION PANEL Timed 09/06/2024 12:52 PM OVERSEAMER POCT GLUCOSE DEVICE Routine 09/06/2024 11:55 AM OVERSEAMER POCT GLUCOSE DEVICE Routine 09/06/2024 7 :33 AM OVERSEAMER CRITICAL CARE Routine 09/06/2024 7:00 AM OVERSEAMER Aortic regurgitation due to bicuspid aortic valve XR CHEST 1 VIEW IP Routine 09/06/2024 5:34 AM OVERSEAMER EGFR Routine 09/06/2024 3:28 AM OVERSEAMER CBC WITHOUT DIFFERENTIAL Routine 09/06/2024 3:28 AM OVERSEAMER MAGNESIUM Routine 09/06/2024 3:28 AM OVERSEAMER BASIC METABOLIC PANEL Routine 09/06/2024 3:28 AM OVERSEAMER PHOSPHORUS Routine 09/06/2024 3:28 AM OVERSEAMER POCT GLUCOSE DEVICE Routine 09/05/2024 9 :00 PM OVERSEAMER POCT GLUCOSE DEVICE Routine 09/05/2024 5 :08 PM OVERSEAMER EGFR STAT 09/05/2024 3:29 PM OVERSEAMER MAGNESIUM STAT 09/05/2024 3:29 PM OVERSEAMER BASIC METABOLIC PANEL STAT 09/05/2024 3:29 PM OVERSEAMER CBC WITHOUT DIFFERENTIAL STAT 09/05/2024 3:29 PM OVERSEAMER CALCIUM,IONIZED, WHOLE BLOOD STAT 09/05/2024 3:25 PM OVERSEAMER POCT GLUCOSE DEVICE Routine 09/05/2024 12:46 PM OVERSEAMER ECG 12-LEAD STAT 09/05/2024 8:41 AM OVERSEAMER CBC WITHOUT DIFFERENTIAL STAT 09/05/2024 7:51 AM OVERSEAMER APTT STAT 09/05/2024 7:47 AM OVERSEAMER PROTIME-INR STAT 09/05/2024 7:47 AM OVERSEAMER CRITICAL CARE Routine 09/05/2024 7:05 AM OVERSEAMER Aortic regurgitation due to bicuspid aortic valve POCT GLUCOSE DEVICE Routine 09/05/2024 7 :05 AM OVERSEAMER XR CHEST 1 VIEW IP Routine 09/05/2024 5:47 AM OVERSEAMER T3, FREE Routine 09/05/2024 3:49 AM OVERSEAMER EGFR Routine 09/05/2024 3:49 AM OVERSEAMER T4, FREE Routine 09/05/2024 3:49 AM OVERSEAMER DIFFERENTIAL AUTO Routine 09/05/2024 3:4 9 AM OVERSEAMER HEMOGLOBIN A1C Routine 09/05/2024 3:49 AM OVERSEAMER THYROID FUNCTION CASCADE Routine 09/05/2024 3:49 AM OVERSEAMER LIPID PANEL Routine 09/05/2024 3:49 AM OVERSEAMER OXYHEMOGLOBIN, PULMONARY ARTERY Routine 09/05/2024 3:49 AM OVERSEAMER PHOSPHORUS Routine 09/05/2024 3:49 AM OVERSEAMER MAGNESIUM Routine 09/05/2024 3:49 AM OVERSEAMER BASIC METABOLIC PANEL Routine 09/05/2024 3:49 AM OVERSEAMER CBC WITH AUTO DIFFERENTIAL Routine 09/05/2024 3:49 AM OVERSEAMER POCT GLUCOSE DEVICE Routine 09/05/2024 2 :19 AM OVERSEAMER CRITICAL CARE Routine 09/04/2024 11:38 PM OVERSEAMER Aortic regurgitation due to bicuspid aortic valve POCT GLUCOSE DEVICE Routine 09/04/2024 9 :48 PM OVERSEAMER POCT GLUCOSE DEVICE Routine 09/04/2024 8 :41 PM OVERSEAMER POCT GLUCOSE DEVICE Routine 09/04/2024 7 :16 PM OVERSEAMER BLOOD GAS, ARTERIAL Timed 09/04/2024 6 :16 PM OVERSEAMER POCT GLUCOSE DEVICE Routine 09/04/2024 6 :13 PM OVERSEAMER EGFR STAT 09/04/2024 5:25 PM OVERSEAMER CALCIUM,IONIZED, WHOLE BLOOD STAT 09/04/2024 5:25 PM OVERSEAMER PHOSPHORUS STAT 09/04/2024 5:25 PM OVERSEAMER MAGNESIUM STAT 09/04/2024 5:25 PM OVERSEAMER BASIC METABOLIC PANEL STAT 09/04/2024 5:25 PM OVERSEAMER CBC WITHOUT DIFFERENTIAL Timed 09/04/2024 5:25 PM OVERSEAMER BLOOD GAS, ARTERIAL Timed 09/04/2024 5 :25 PM OVERSEAMER POCT GLUCOSE DEVICE Routine 09/04/2024 5 :06 PM OVERSEAMER POCT GLUCOSE DEVICE Routine 09/04/2024 3 :55 PM OVERSEAMER BLOOD CULTURE Routine 09/04/2024 3:42 PM OVERSEAMER BLOOD CULTURE Routine 09/04/2024 3:42 PM OVERSEAMER CALCIUM,IONIZED, WHOLE BLOOD STAT 09/04/2024 3:21 PM OVERSEAMER BLOOD GAS, ARTERIAL STAT 09/04/2024 3 :21 PM OVERSEAMER POCT GLUCOSE DEVICE Routine 09/04/2024 2 :48 PM OVERSEAMER POCT GLUCOSE DEVICE Routine 09/04/2024 1 :49 PM OVERSEAMER CRITICAL CARE Routine 09/04/2024 1:12 PM OVERSEAMER Aortic regurgitation due to bicuspid aortic valve XR CHEST 1 VIEW Critical/Life-T hreatening 09/04/2024 12:57 PM OVERSEAMER SURGICAL PATHOLOGY Routine 09/04/2024 12:35 PM OVERSEAMER Aortic valve stenosis, etiology of cardiac valve disease unspecified PHOSPHORUS Add-On 09/04/2024 12:27 PM OVERSEAMER MAGNESIUM Add-On 09/04/2024 12:27 PM OVERSEAMER EGFR STAT 09/04/2024 12:27 PM OVERSEAMER APTT STAT 09/04/2024 12:27 PM OVERSEAMER PROTIME-INR STAT 09/04/2024 12:27 PM OVERSEAMER CBC WITHOUT DIFFERENTIAL Timed 09/04/2024 12:27 PM OVERSEAMER BLOOD GAS, ARTERIAL Timed 09/04/2024 12:27 PM OVERSEAMER BASIC METABOLIC PANEL STAT 09/04/2024 12:27 PM OVERSEAMER PHOSPHORUS Add-On 09/04/2024 12:27 PM OVERSEAMER POCT GLUCOSE DEVICE Routine 09/04/2024 11:55 AM OVERSEAMER POC BLOOD GAS AND CHEMISTRIES, ARTERIAL Routine 09/04/2024 11:04 AM OVERSEAMER POCT ACTIVATED CLOTTING TIME, HIGH RANGE Routine 09/04/2024 11:00 AM OVERSEAMER POC BLOOD GAS AND CHEMISTRIES, ARTERIAL Routine 09/04/2024 10:20 AM OVERSEAMER POCT ACTIVATED CLOTTING TIME, HIGH RANGE Routine 09/04/2024 10:19 AM OVERSEAMER POC BLOOD GAS AND CHEMISTRIES, ARTERIAL Routine 09/04/2024 9:57 AM OVERSEAMER PLATELET COUNT STAT 09/04/2024 9:56 AM OVERSEAMER POC BLOOD GAS AND CHEMISTRIES, ARTERIAL Routine 09/04/2024 9:55 AM OVERSEAMER POCT ACTIVATED CLOTTING TIME, HIGH RANGE Routine 09/04/2024 9:54 AM OVERSEAMER POC BLOOD GAS AND CHEMISTRIES, ARTERIAL Routine 09/04/2024 9:19 AM OVERSEAMER POCT ACTIVATED CLOTTING TIME, HIGH RANGE Routine 09/04/2024 9:18 AM OVERSEAMER ANESTHESIA CENTRAL VENOUS LINE PLACEMENT Routine 09/04/2024 9:15 AM OVERSEAMER ANESTHESIA CENTRAL VENOUS LINE PLACEMENT Routine 09/04/2024 9:15 AM OVERSEAMER NE AN ELECTIVE ENDOTRACHEAL AIRWAY Routine 09/04/2024 9:14 AM OVERSEAMER ANESTHESIA ARTERIAL LINE PLACEMENT Routine 09/04/2024 9:13 AM OVERSEAMER POCT ACTIVATED CLOTTING TIME, HIGH RANGE Routine 09/04/2024 8:53 AM OVERSEAMER ANESTHESIA SCOTTY Routine 09/04/2024 8:28 AM OVERSEAMER POC BLOOD GAS AND CHEMISTRIES, ARTERIAL Routine 09/04/2024 8:21 AM OVERSEAMER POCT ACTIVATED CLOTTING TIME, HIGH RANGE Routine 09/04/2024 8:18 AM OVERSEAMER REPLACEMENT AORTIC VALVE 09/04/2024 7:35 AM OVERSEAMER Aortic valve stenosis, etiology of cardiac valve disease unspecified B CHECK SAMPLE STAT 09/04/2024 6:51 AM OVERSEAMER POCT HCG, URINE Routine 09/04/2024 6:30 AM OVERSEAMER PREPARE RBC STAT 09/04/2024 5:35 AM OVERSEAMER from Last 3 Months Results * (ABNORMAL) Protime-INR (10/31/2024 6:06 AM CDT) INR 3.4(H) [employer] Comment: Reference Range 0.9-1.1 Moderate-intensity Warfarin Therapy 2.0-3.0 Higher-intensity Warfarin Therapy 3.0-4.0 PT 33.8(H) 9.0 - 11.5 sec [employer] [facility] Comment: For additional information, please refer to http://education.The 19th Floor/faq/EEH349 (This link is being provided for informational/ educational purposes only.) Blood 10/31/2024 6:0 6 AM CDT 10/31/2024 6:06 AM CDT Leeann Odom LANDSCAPING SPECIALIST LAB BLOOD ORDERABLES Chloé l Result Performing Organization Address [facility] Co de Phone Number [facility] [address] [place] [address] * (ABNORMAL) Protime-INR (10/03/2024 6:38 AM OVERSEAMER) INR 3.2(H) [employer] Comment: Reference Range 0.9-1.1 Moderate-intensity Warfarin Therapy 2.0-3.0 Higher-intensity Warfarin Therapy 3.0-4.0 PT 32.0(H) 9.0 - 11.5 sec [employer] luisa Temple Comment: For additional information, please refer to http://education.The 19th Floor/faq/BXP596 (This link is being provided for informational/ educational purposes only.) Blood 10/03/2024 6:38 AM OVERSEAMER 10/03/2024 6:39 AM OVERSEAMER Leeann Odom LANDSCAPING SPECIALIST LAB BLOOD ORDERABLES Chloé l Result Performing Organization Address [facility] Co de Phone Number [facility] [address] [place] [address] * POCT PT/INR (09/26/2024 8:41 AM OVERSEAMER) INR, POC 3.30 [facility] Comment:repeat INR on 10/03 at [facility] [place] Blood 09/26/2024 8:41 AM OVERSEAMER Cynthia Haley LANDSCAPING SPECIALIST POINT OF CARE TEST ORDERAB LES Final Result Performing Organization Address [facility] Co de Phone Number HH POCT RESULTING LABORAT[facility] * POCT PT/INR (09/21/2024 10:24 AM OVERSEAMER) INR, POC 3.80 HH [facility]ULT[facility] LAB[facility] Blood 09/21/2024 10:2 4 AM OVERSEAMER Talya Boucher MD POINT OF CARE TEST ORDERABLES Final Result [facility] * POCT PT/INR (09/18/2024 9:04 AM OVERSEAMER) INR, POC 3.10 HH [facility]ULT[facility] Blood 09/18/2024 9:04 AM OVERSEAMER Cynthia Haley NP POINT OF CARE TEST ORDERAB LES Final Result [facility] * POCT PT/INR (09/14/2024 11:31 AM OVERSEAMER) INR, POC 1.80 HH PO[facility] RESULTING LAB[facility] Blood 09/14/2024 11:3 1 AM OVERSEAMER Cynthia Haley NP POINT OF CARE TEST ORDERAB LES Final Result [facility] * eGFR (09/14/2024 11:10 AM OVERSEAMER) eGFR 70 >=60 mL/min/1. 73 m2 Comment: [...] reviewed 2021. Blood 09/14/2024 11:1 0 AM OVERSEAMER 09/14/2024 4:43 PM OVERSEAMER us Cynthia Haley LANDSCAPING SPECIALIST LAB BLOOD ORDERABLES Final Result [facility] Department [place] [address] * Differential, auto (09/14/2024 11:10 AM OVERSEAMER) Neutrophil abs 6.4 1.5 - 6.5 K/cumm Imm gran abs 0.1 0.0 - 0.1 K/cumm [facility] Lymphocyte abs 1.8 0.8 - 3.3 K/cumm [facility] Monocyte abs 0.6 0.2 - 0.8 K/cumm [facility] Eosinophil abs 0.0 0.0 - 0.5 K/cumm [facility] Basophil abs 0.1 0.0 - 0.1 K/cumm [facility] Neutrophil pct 71.4 % [facility] Comment: Interpretive Data Percent cell count reference ranges are not reported, since discordance with absolute values may lead to misinterpretation of CBC data. Current Interpretive Data was last revised on 2017. Imm gran pct 0.8 % [facility] Comment: Interpretive Data Percent cell count reference ranges are not reported, since discordance with absolute values may lead to misinterpretation of CBC data. Current Interpretive Data was last revised on 2017. Lymphocyte pct 19.7 % [facility] Comment: Interpretive Data Percent cell count reference ranges are not reported, since discordance with absolute values may lead to misinterpretation of CBC data. Current Interpretive Data was last revised on 2017. Monocyte pct 7.2 % [facility] Comment: Interpretive Data Percent cell count reference ranges are not reported, since discordance with absolute values may lead to misinterpretation of CBC data. Current Interpretive Data was last revised on 2017. Eosinophil pct 0.2 % [facility] Comment: Interpretive Data Percent cell count reference ranges are not reported, since discordance with absolute values may lead to misinterpretation of CBC data. Current Interpretive Data was last revised on 2017. Basophil pct 0.7 % [facility] Comment: Interpretive Data Percent cell count reference ranges are not reported, since discordance with absolute values may lead to misinterpretation of CBC data. Current Interpretive Data was last revised on 2017. Blood 09/14/2024 11:1 0 AM OVERSEAMER 09/14/2024 4:20 PM OVERSEAMER Cynthia Haley LANDSCAPING SPECIALIST LAB BLOOD ORDERABLES Final Result [facility] Department [place] [address] * CBC with auto differential (09/14/2024 11:10 AM OVERSEAMER) WBC 8.9 3.8 - 9.9 K/cumm Hgb 11.9 11.9 - 15.5 g/dL [facility] Hct 35.8 35.6 - 45.5 % [facility] Plt 393 150 - 400 K/cumm [facility] MPV 10.3 9.1 - 12.3 fL [facility] RBC 4.13 3.90 - 5.20 M/cumm [facility] MCV 86.7 81.3 - 96.4 fL [facility] MCH 28.8 27.1 - 33.3 pg [facility] MCHC 33.2 32.3 - 35.7 g/dL [facility] RDW CV 12.7 11.1 - 14.9 % [facility] RDW SD 39.7 35.7 - 48.1 fL [facility] NRBC abs 0.00 0.00 - 0.01 K/cumm [facility] Blood 09/14/2024 11:1 0 AM OVERSEAMER 09/14/2024 4:20 PM OVERSEAMER Cynthia Haley LANDSCAPING SPECIALIST LAB BLOOD ORDERABLES Final Result [facility] Department [place] [address] * Comprehensive metabolic panel (09/14/2024 11:10 AM OVERSEAMER) Sodium 140 135 - 145 mmol/L Potassium, pl 3.7 3.3 - 4.9 mmol/L [facility] Chloride 101 97 - 110 mmol/L [facility] CO2 28 22 - 32 mmol/L [facility] Anion gap 11 2 - 15 mmol/L [facility] BUN 14 6 - 25 mg/dL [facility] Creatinine 0.96 0.60 - 1.10 mg/dL [facility] Glucose 77 70 - 199 mg/dL [facility] Comment: Interpretive Data Fasting glucose >/= [...] Calcium 9.0 8.5 - 10.3 mg/dL [facility] Bilirubin, total 0.2 0.1 - 1.2 mg/dL [facility] Protein, pl 6.8 6.5 - 8.5 g/dL [facility] Albumin 3.6 3.5 - 5.0 g/dL [facility] Alk phos 127 40 - 130 Units/L [facility] ALT 22 7 - 45 Units/L [facility] AST 20 10 - 45 Units/L [facility] Blood 09/14/2024 11:1 0 AM OVERSEAMER 09/14/2024 4:20 PM OVERSEAMER us Cynthia Haley NP LAB BLOOD ORDERABLES Final Result [facility] Department [place] [address] * XR Shoulder Left 2 or More Views (09/13/2024 4:37 PM OVERSEAMER) Anatomical Region Laterality Modality Upper Extremities, Shoulder Left [facility] Radiography 09/17/2024 12:0 3 AM OVERSEAMER Narrative 09/17/2024 12:23 AM OVERSEAMER EXAM DESCRIPTION: XR SHOULDER LEFT 2 OR [...] Desi Rand M.D. SN T: Report ID: [id number] Reading Location: [id number] Procedure Note Desi Rand MD - 09/17/2024 [...] Desi Rand M.D. SN T: Report ID: [id number] Reading Location: [id number] Cynthia Haley LANDSCAPING SPECIALIST IMG XR PROCEDURES Final Re sult * X-ray chest 2 views (09/13/2024 4:28 PM OVERSEAMER) Anatomical Region Laterality Modality Body, Chest N/A Digital Radiogra phy 09/17/2024 12:0 0 AM OVERSEAMER Narrative 09/17/2024 12:01 AM OVERSEAMER EXAM DESCRIPTION: XR CHEST PA LATERAL 2 [...] Desi Rand M.D. SN T: Report ID: [id number] Reading Location: [id number] Procedure Note Desi Rand MD - 09/17/2024 [...] Desi Rand M.D. SN T: Report ID: [id number] Reading Location: [place] [address] Cynthia Haley LANDSCAPING SPECIALIST IMG XR PROCEDURES Final Re sult * POCT PT/INR (09/11/2024 11:59 AM OVERSEAMER) INR, POC 1.60 HH POCT RESULTING LABORATORY Comment:PT TAKING ORDERED IN EVENING Blood 09/11/2024 11:5 9 AM OVERSEAMER Cynthia Haley NP POINT OF CARE TEST ORDERAB LES Final Result POCT RESULTING LABORATORY * TRANSTHORACIC ECHO (TTE) COMPLETE W DOPPLER/CF WO CONTRAST (09/08/2024 5:45 PM OVERSEAMER) LV EF % CONS SCIMAGE Anatomical Region Laterality Modality Ultrasound 09/08/2024 12:5 4 PM OVERSEAMER Narrative 09/08/2024 4:21 [place] [id number] Echocardiogram Report Patient Name: ZURI ACEVES SUE : 1970 Study Date: 09/08/2024 12:54:21 PM Gender: F Tech: HERON Location: [id number] Ref Provider: TALYA BOUCHER Height(Cm): 163 BSA: [...] regurgitation. Electronically Signed By: Dr. Matilda Guo [facility] 09/08/2024 4:19:47 PM OVERSEAMER Procedure Note Matilda Guo MD - 09/08/2024 [place] [id number] Echocardiogram Report Patient Name: AUSTIN ELLISZURI SUE : 1970 Study Date: 09/08/2024 12:54:21 PM Gender: F Tech: MS Location: [id number] Ref Provider: TALYA BOUCHER Height(Cm): 163 BSA: [...] regurgitation. Electronically Signed By: Dr. Matilda Guo [facility] 09/08/2024 4:19:47 PM OVERSEAMER us Talya Boucher MD CV ECHO PROCEDURES Final Resul t * XR Chest 1 View - Portable - in AM (09/08/2024 6:17 AM OVERSEAMER) Anatomical Region Laterality Modality Body, Chest N/A Computed Radiogr aphy 09/08/2024 7:25 AM OVERSEAMER Impressions 09/08/2024 7:25 AM OVERSEAMER No change from previous. Electronically signed by: Gabriel Minaya M.D. Narrative 09/08/2024 7:25 AM OVERSEAMER EXAM: XR CHEST 1 VIEW DATE: 09/08/2024 [...] Final Result * eGFR (09/08/2024 4:43 AM OVERSEAMER) eGFR 85 >=60 mL/min/1. 73 m2 Comment: [...] last reviewed 2021. Blood 09/08/2024 4:43 AM OVERSEAMER 09/08/2024 4:43 AM OVERSEAMER Joey Oconnor NP LAB BLOOD ORDERABLES Final Result Performing Organization Address [facility] Co de Phone Number NICOLE RAMOS [address] [place] [address] * (ABNORMAL) Protime-INR (09/08/2024 4:43 AM OVERSEAMER) PT 46.1(H) 9.7 - 13.0 sec INR 4.15(H) 0.90 - 1.20 NICOLE RAMOS Comment: Interpretive data Oral anticoagulant therapeutic ranges: Venous thromboembolism prophylaxis or treatment: 2.0-3.0 CARDIOLOGY Standard range: 2.0-3.0 High-intensity range: 2.5-3.5 Refer to indication-specific guidelines for appropriate target ranges for prosthetic heart valve replacement. Current interpretive data was last revised on 2019. Blood 09/08/2024 4:43 AM OVERSEAMER 09/08/2024 4:43 AM OVERSEAMER Joey Oconnor NP LAB BLOOD ORDERABLES Final Result Performing Organization Address [facility] Co de Phone Number NICOLE RAMOS [address] [facility] [place] [address] * (ABNORMAL) CBC without differential (09/08/2024 4:43 AM OVERSEAMER) WBC 6.1 3.8 - 9.9 K/cumm Hgb 10.8(L) 11.9 - 15.5 g/dL [facility] Hct 33.2(L) 35.6 - 45.5 % [facility] CH Plt 166 150 - 400 K/cumm [facility] CH MPV 10.7 9.1 - 12.3 fL [facility] RBC 3.82(L) 3.90 - 5.20 M/cumm [facility] MCV 86.9 81.3 - 96.4 fL [facility] MCH 28.3 27.1 - 33.3 pg [facility] MCHC 32.5 32.3 - 35.7 g/dL [facility] CH RDW CV 12.4 11.1 - 14.9 % [facility] CH RDW SD 39.3 35.7 - 48.1 fL [facility] NRBC abs 0.00 0.00 - 0.01 K/cumm [facility] Blood 09/08/2024 4:43 AM OVERSEAMER 09/08/2024 4:43 AM OVERSEAMER Joey Oconnor NP LAB BLOOD ORDERABLES Final Result [facility] [address] Department [place] [address] * Basic metabolic panel (09/08/2024 4:43 AM OVERSEAMER) Sodium 141 135 - 145 mmol/L Potassium, pl 3.4 3.3 - 4.9 mmol/L [facility] Chloride 106 97 - 110 mmol/L [facility] CO2 25 22 - 32 mmol/L [facility] Anion gap 10 2 - 15 mmol/L [facility] BUN 17 6 - 25 mg/dL [facility] Creatinine 0.82 0.60 - 1.10 mg/dL [facility] Glucose 91 70 - 199 mg/dL [facility] Comment: Interpretive Data Fasting glucose >/= [...] 2022. Calcium 8.5 8.5 - 10.3 mg/dL [facility] Blood 09/08/2024 4:43 AM OVERSEAMER 09/08/2024 4:43 AM OVERSEAMER Joey Oconnor LANDSCAPING SPECIALIST LAB BLOOD ORDERABLES Final Result NICOLE [address] Department [place] [address] * XR Chest 1 View - Portable - in AM (09/07/2024 5:30 AM OVERSEAMER) Anatomical Region Laterality Modality Body, Chest N/A Computed Radiogr aphy 09/07/2024 8:13 AM OVERSEAMER Impressions 09/07/2024 8:13 AM OVERSEAMER No failure or pneumothorax. Atelectasis left base. Electronically signed by: Dick Renteria M.D. Narrative 09/07/2024 8:13 AM OVERSEAMER EXAMINATION: XR CHEST 1 VIEW DATE: 09/07/2024 [...] pneumothorax. Atelectasis left base. Electronically signed by: Jennings Renteria, M.D. us Talya Boucher MD IMG XR PROCEDURES Final Result * eGFR (09/07/2024 4:49 AM OVERSEAMER) eGFR 84 >=60 mL/min/1. 73 m2 Comment: [...] last reviewed 2021. Blood 09/07/2024 4:49 AM OVERSEAMER 09/07/2024 5:16 AM OVERSEAMER Joey Oconnor LANDSCAPING SPECIALIST LAB BLOOD ORDERABLES Final Result NICOLE RAMOS [address] Department [place] [address] * (ABNORMAL) Protime-INR (09/07/2024 4:49 AM OVERSEAMER) PT 36.1(H) 9.7 - 13.0 sec INR 3.26(H) 0.90 - 1.20 NICOLE RAMOS Comment: Interpretive data Oral anticoagulant therapeutic ranges: Venous thromboembolism prophylaxis or treatment: 2.0-3.0 CARDIOLOGY Standard range: 2.0-3.0 High-intensity range: 2.5-3.5 Refer to indication-specific guidelines for appropriate target ranges for prosthetic heart valve replacement. Current interpretive data was last revised on 2019. Blood 09/07/2024 4:49 AM OVERSEAMER 09/07/2024 5:17 AM OVERSEAMER Joey Oconnor LANDSCAPING SPECIALIST LAB BLOOD ORDERABLES Final Result Performing Organization Address City/[facility]/ZIP Co de Phone Number NICOLE RAMOS [address] Department of [employer] [place], [place] [id number] * (ABNORMAL) CBC without differential (09/07/2024 4:49 AM OVERSEAMER) WBC 8.6 3.8 - 9.9 K/cumm Hgb 11.3(L) 11.9 - 15.5 g/dL [facility] Hct 35.2(L) 35.6 - 45.5 % [facility] CH Plt 116(L) 150 - 400 K/cumm [facility] Comment:No clot detected in sample. MPV 10.9 9.1 - 12.3 fL [facility] CH RBC 3.99 3.90 - 5.20 M/cumm [facility] CH MCV 88.2 81.3 - 96.4 fL [facility] CH MCH 28.3 27.1 - 33.3 pg [facility] CH MCHC 32.1(L) 32.3 - 35.7 g/dL [facility] CH RDW CV 12.5 11.1 - 14.9 % [facility] CH RDW SD 40.1 35.7 - 48.1 fL [facility] NRBC abs 0.00 0.00 - 0.01 K/cumm [facility] Blood 09/07/2024 4:49 AM OVERSEAMER 09/07/2024 5:17 AM OVERSEAMER Joey Oconnor LANDSCAPING SPECIALIST LAB BLOOD ORDERABLES Final Result Performing Organization Address City/[facility]/ZIP Co de Phone Number NICOLE RAMOS [address] Department [place] [address] * Basic metabolic panel (09/07/2024 4:49 AM OVERSEAMER) Sodium 139 135 - 145 mmol/L Potassium, pl 3.8 3.3 - 4.9 mmol/L [facility] Chloride 105 97 - 110 mmol/L [facility] CO2 25 22 - 32 mmol/L [facility] Anion gap 9 2 - 15 mmol/L [facility] BUN 18 6 - 25 mg/dL [facility] Creatinine 0.83 0.60 - 1.10 mg/dL [facility] Glucose 104 70 - 199 mg/dL [facility] Comment: Interpretive Data Fasting glucose >/= [...] 2022. Calcium 8.8 8.5 - 10.3 mg/dL [facility] Blood 09/07/2024 4:49 AM OVERSEAMER 09/07/2024 5:16 AM OVERSEAMER Joey Oconnor NP LAB BLOOD ORDERABLES Final Result Performing Organization Address City/[facility]/ZIP Co de Phone Number NICOLE RAMOS [address] [place] [address] * (ABNORMAL) aPTT (09/06/2024 2:10 PM OVERSEAMER) aPTT 26(L) 28 - 38 sec Comment: Interpretive Data Heparin therapeutic range: 66.0 - 100.0 seconds. Range based on correlation with therapeutic heparin activity range of 0.3 - 0.7 Units/mL. Current interpretive data was last revised on 2023. Blood 09/06/2024 2:10 PM OVERSEAMER 09/06/2024 2:17 PM OVERSEAMER Narrative NICOLE - 09/06/2024 2:32 PM OVERSEAMER Baseline prior to enoxaparin initiation. Joey Oconnor NP LAB BLOOD ORDERABLES Final Result Performing Organization Address City/[facility]/ZIP Co de Phone Number NICOLE RAMOS [address] [facility] [place] [address] * (ABNORMAL) Protime-INR (09/06/2024 2:10 PM OVERSEAMER) Pathologist [facility] PT 18.5(H) 9.7 - 13.0 sec INR 1.69(H) 0.90 - 1.20 NICOLE RAMOS Comment: Interpretive data Oral anticoagulant therapeutic ranges: Venous thromboembolism prophylaxis or treatment: 2.0-3.0 CARDIOLOGY Standard range: 2.0-3.0 High-intensity range: 2.5-3.5 Refer to indication-specific guidelines for appropriate target ranges for prosthetic heart valve replacement. Current interpretive data was last revised on 2019. Blood 09/06/2024 2:10 PM OVERSEAMER 09/06/2024 2:17 PM OVERSEAMER Joey Oconnor LANDSCAPING SPECIALIST LAB BLOOD ORDERABLES Final Result Performing Organization Address City/[facility]/ZIP Co de Phone Number NICOLE RAMOS [address] [place] [address] * Calcium, ionized, whole blood (09/06/2024 12:52 PM OVERSEAMER) [facility] Ca, ionized, bld 4.86 4.50 - 5.10 mg/dL Blood 09/06/2024 12:5 2 PM OVERSEAMER 09/06/2024 1:06 PM OVERSEAMER Zoe Ureña LANDSCAPING SPECIALIST LAB BLOOD ORDERABLES F inal Result NICOLE [address] [address] [facility] [place] [address] * eGFR (09/06/2024 12:52 PM OVERSEAMER) [facility] eGFR 89 >=60 mL/min/1. 73 m2 Comment: [...] reviewed 2021. Blood 09/06/2024 12:5 2 PM OVERSEAMER 09/06/2024 1:09 PM OVERSEAMER Zoe Ureña LANDSCAPING SPECIALIST LAB BLOOD ORDERABLES F inal Result Performing Organization Address City/[facility]/ZIP Co de Phone Number NICOLE [address] [place] [address] * Magnesium (09/06/2024 12:52 PM OVERSEAMER) Pathologist [facility] Magnesium 2.0 1.4 - 2.5 mg/dL Blood 09/06/2024 12:5 2 PM OVERSEAMER 09/06/2024 1:06 PM OVERSEAMER Zoe Ureña LANDSCAPING SPECIALIST LAB BLOOD ORDERABLES F inal Result Performing Organization Address [facility] Co de Phone Number [facility] [address] [facility] [place] [address] * (ABNORMAL) Renal function panel (09/06/2024 12:52 PM OVERSEAMER) Sodium 140 135 - 145 mmol/L Potassium, pl 4.0 3.3 - 4.9 mmol/L [facility] Chloride 107 97 - 110 mmol/L [facility] CO2 27 22 - 32 mmol/L [facility] Anion gap 6 2 - 15 mmol/L [facility] BUN 17 6 - 25 mg/dL [facility] Creatinine 0.79 0.60 - 1.10 mg/dL [facility] Glucose 105 70 - 199 mg/dL [facility] Comment: Interpretive Data Fasting glucose >/= [...] Calcium 8.6 8.5 - 10.3 mg/dL [facility] Phosphorus, pl 2.4 2.3 - 4.5 mg/dL [facility] Albumin 3.4(L) 3.5 - 5.0 g/dL [facility] Blood 09/06/2024 12:5 2 PM OVERSEAMER 09/06/2024 1:06 PM OVERSEAMER Zoe Ureña NP LAB BLOOD ORDERABLES F inal Result Performing Organization Address [facility]/ZIP Co de Phone Number [facility] [address] [place] [address] * POCT glucose (09/06/2024 11:55 AM OVERSEAMER) Glucose, POC 101 70 - 199 mg/dL Blood 09/06/2024 11:5 5 AM OVERSEAMER 09/06/2024 11:55 AM OVERSEAMER Talya Boucher MD LAB POCT ORDERABLES - DEVICE F inal Result Performing Organization Address City/[facility]/ZIP Co de Phone Number [facility] [address] Department of [employer] [place], [place] [phone] * POCT glucose (09/06/2024 7:33 AM OVERSEAMER) Glucose, POC 106 70 - 199 mg/dL Blood 09/06/2024 7:33 AM OVERSEAMER 09/06/2024 7:33 AM OVERSEAMER Talya Boucher MD LAB POCT ORDERABLES - [place] [address] [address] Department [place] [address] * Critical Care (09/06/2024 7:00 AM OVERSEAMER) Narrative Lenin Huff MD - 09/06/2024 7:00 AM OVERSEAMER Zoe Ureña NP 09/06/2024 3:56 PM Critical [...] plan with the ICU team and other medical/insolvency consultant staff, making frequent assessments and decisions [...] Portable - in AM (09/06/2024 5:34 AM OVERSEAMER) Anatomical Region Laterality Modality Body, Chest N/A Computed Radiogr aphy 09/06/2024 8:19 AM OVERSEAMER Impressions 09/06/2024 8:19 AM OVERSEAMER Improvement. Some residual atelectasis fluid left base. Electronically signed by: Dick Renteria M.D. Narrative 09/06/2024 8:19 AM OVERSEAMER EXAMINATION: XR CHEST 1 VIEW DATE: 09/06/2024 [...] Final Result * eGFR (09/06/2024 3:28 AM OVERSEAMER) eGFR >90 >=60 mL/min/1. 73 m2 Comment: [...] last reviewed 2021. Blood 09/06/2024 3:28 AM OVERSEAMER 09/06/2024 3:40 AM OVERSEAMER Talya Boucher MD LAB BLOOD ORDERABLES Final Res ult Performing Organization Address City/[facility]/ZIP Co de Phone Number NICOLE RAMOS [address] [place] [address] * (ABNORMAL) CBC without differential (09/06/2024 3:28 AM OVERSEAMER) WBC 10.1(H) 3.8 - 9.9 K/cumm Hgb 10.9(L) 11.9 - 15.5 g/dL [facility] Hct 33.6(L) 35.6 - 45.5 % [facility] CH Plt 88(L) 150 - 400 K/cumm [facility] CH MPV 10.6 9.1 - 12.3 fL [facility] RBC 3.85(L) 3.90 - 5.20 M/cumm [facility] CH MCV 87.3 81.3 - 96.4 fL [facility] CH MCH 28.3 27.1 - 33.3 pg [facility] CH MCHC 32.4 32.3 - 35.7 g/dL [facility] CH RDW CV 12.6 11.1 - 14.9 % [facility] CH RDW SD 40.2 35.7 - 48.1 fL [facility] NRBC abs 0.00 0.00 - 0.01 K/cumm [facility] Blood 09/06/2024 3:28 AM OVERSEAMER 09/06/2024 3:40 AM OVERSEAMER Talya Boucher MD LAB BLOOD ORDERABLES Final Res ult Performing Organization Address City/[facility]/ZIP Co de Phone Number NICOLE RAMOS [address] Department [employer] [place], [place] [phone] * Phosphorus (09/06/2024 3:28 AM OVERSEAMER) Phosphorus, pl 2.5 2.3 - 4.5 mg/dL Blood 09/06/2024 3:28 AM OVERSEAMER 09/06/2024 3:37 AM OVERSEAMER Jessica Martinez LANDSCAPING SPECIALIST LAB BLOOD ORDERABLES Fin al Result Performing Organization Address [facility] Co de Phone Number [facility] [address] [place] [address] * Magnesium (09/06/2024 3:28 AM OVERSEAMER) Pathologist [facility] Magnesium 2.1 1.4 - 2.5 mg/dL Blood 09/06/2024 3:28 AM OVERSEAMER 09/06/2024 3:37 AM OVERSEAMER Talya Boucher MD LAB BLOOD ORDERABLES Final Res ult Performing Organization Address [facility] Co de Phone Number [facility] [address] [place] [address] * Basic metabolic panel (09/06/2024 3:28 AM OVERSEAMER) Pathologist [facility] Sodium 140 135 - 145 mmol/L Potassium, pl 4.0 3.3 - 4.9 mmol/L [facility] Chloride 107 97 - 110 mmol/L [facility] CO2 24 22 - 32 mmol/L [facility] Anion gap 9 2 - 15 mmol/L [facility] BUN 14 6 - 25 mg/dL [facility] Creatinine 0.74 0.60 - 1.10 mg/dL [facility] Glucose 120 70 - 199 mg/dL [facility] Comment: Interpretive Data Fasting glucose >/= [...] 2022. Calcium 8.5 8.5 - 10.3 mg/dL NICOLE Blood 09/06/2024 3:28 AM OVERSEAMER 09/06/2024 3:37 AM OVERSEAMER Tlaya Boucher MD LAB BLOOD ORDERABLES Final Res ult Performing Organization Address [facility] Co de Phone Number [facility] [address] [address] Department [place] [address] * POCT glucose (09/05/2024 9:00 PM OVERSEAMER) Glucose, POC 120 70 - 199 mg/dL Blood 09/05/2024 9:00 PM OVERSEAMER 09/05/2024 9:00 PM OVERSEAMER Talya Boucher MD LAB POCT ORDERABLES - DEVICE F inal Result Performing Organization Address [facility] Co de Phone Number [facility] [address] [address] Department [place] [address] * POCT glucose (09/05/2024 5:08 PM OVERSEAMER) Pathologist [facility] Glucose, POC 126 70 - 199 mg/dL Blood 09/05/2024 5:08 PM OVERSEAMER 09/05/2024 5:08 PM OVERSEAMER Talya Boucher MD LAB POCT ORDERABLES - DEVICE F inal Result Performing Organization Address [facility] Co de Phone Number NICOLE [address] [address] [facility] [place] [address] * eGFR (09/05/2024 3:29 PM OVERSEAMER) eGFR >90 >=60 mL/min/1. 73 m2 Comment: [...] last reviewed 2021. Blood 09/05/2024 3:29 PM OVERSEAMER 09/05/2024 3:30 PM OVERSEAMER us Talya Boucher MD LAB BLOOD ORDERABLES Final Res ult [facility] [address] Department [place] [address] * (ABNORMAL) CBC without differential (09/05/2024 3:29 PM OVERSEAMER) WBC 12.7(H) 3.8 - 9.9 K/cumm Hgb 11.7(L) 11.9 - 15.5 g/dL [facility] Hct 35.3(L) 35.6 - 45.5 % [facility] Plt 95(L) 150 - 400 K/cumm [facility] MPV 11.2 9.1 - 12.3 fL [facility] RBC 4.05 3.90 - 5.20 M/cumm [facility] MCV 87.2 81.3 - 96.4 fL [facility] MCH 28.9 27.1 - 33.3 pg [facility] MCHC 33.1 32.3 - 35.7 g/dL [facility] RDW CV 12.8 11.1 - 14.9 % [facility] RDW SD 40.8 35.7 - 48.1 fL [facility] NRBC abs 0.00 0.00 - 0.01 K/cumm [facility] Blood 09/05/2024 3:29 PM OVERSEAMER 09/05/2024 3:30 PM OVERSEAMER Talya Boucher MD LAB BLOOD ORDERABLES Final Res ult Performing Organization Address City/[facility]/ZIP Co de Phone Number NICOLE RAMOS [address] [address] [facility] [place] [address] * Magnesium (09/05/2024 3:29 PM OVERSEAMER) Magnesium 2.1 1.4 - 2.5 mg/dL Blood 09/05/2024 3:29 PM OVERSEAMER 09/05/2024 3:30 PM OVERSEAMER Talya Boucher MD LAB BLOOD ORDERABLES Final Res ult Performing Organization Address [facility] de Phone Number NICOLE RAMOS [address] [address] Department [place] [address] * Basic metabolic panel (09/05/2024 3:29 PM OVERSEAMER) Sodium 138 135 - 145 mmol/L Potassium, pl 4.0 3.3 - 4.9 mmol/L [facility] Chloride 105 97 - 110 mmol/L [facility] CO2 24 22 - 32 mmol/L [facility] Anion gap 9 2 - 15 mmol/L [facility] BUN 10 6 - 25 mg/dL [facility] Creatinine 0.76 0.60 - 1.10 mg/dL [facility] Glucose 140 70 - 199 mg/dL [facility] Comment: Interpretive Data Fasting glucose >/= [...] - 10.3 mg/dL [facility] Blood 09/05/2024 3:29 PM OVERSEAMER 09/05/2024 3:30 PM OVERSEAMER Talya Boucher MD LAB BLOOD ORDERABLES Final Res ult Performing Organization Address [facility] de Phone Number NICOLE RAMOS [address] [address] [facility] [place] [address] * Calcium, ionized, whole blood (09/05/2024 3:25 PM OVERSEAMER) Ca, ionized, bld 4.65 4.50 - 5.10 mg/dL Blood 09/05/2024 3:25 PM OVERSEAMER 09/05/2024 3:29 PM OVERSEAMER Talya Boucher MD LAB BLOOD ORDERABLES Final Res ult Performing Organization Address [facility] Phone Number NICOLE [address] [address] [facility] [place] [address] * POCT glucose (09/05/2024 12:46 PM OVERSEAMER) Glucose, POC 134 70 - 199 mg/dL Blood 09/05/2024 12:4 6 PM OVERSEAMER 09/05/2024 12:46 PM OVERSEAMER Talya Boucher MD LAB POCT ORDERABLES - DEVICE F inal Result Performing Organization Address [facility] de Phone Number NICOLE RAMOS [address] [address] [facility] [place] [address] * ECG 12 lead (09/05/2024 8:41 AM OVERSEAMER) 09/05/2024 8:41 AM OVERSEAMER Narrative [facility] - 09/05/2024 11:12 AM OVERSEAMER Vent Rate: 96 bpm RR Interval: 624 msec NE Interval: 135 msec QRS Duration: 83 msec QT Interval: 368 msec QTC Interval: 421 msec P-R-T [place]: 7 - 1 - 10 degrees IMPRESSION: SINUS RHYTHM POSSIBLE INFERIOR MYOCARDIAL INFARCTION , PROBABLY OLD [30 ms Q WAVE IN II/aVF] BORDERLINE ECG Electronically Signed By: Dr. Matilda Guo [facility] Talya Boucher MD ECG ORDERABLES Final Result Performing Organization Address [facility]/ZIP Co de Phone Number [facility] * (ABNORMAL) CBC without differential (09/05/2024 7:51 AM OVERSE[facility]ER) WBC 11.7(H) 3.8 - 9.9 K/cumm Hgb 11.5(L) 11.9 - 15.5 g/dL [facility] Hct 35.4(L) 35.6 - 45.5 % [facility] Plt 104(L) 150 - 400 K/cumm [facility] MPV 11.1 9.1 - 12.3 fL [facility] RBC 4.03 3.90 - 5.20 M/cumm [facility] MCV 87.8 81.3 - 96.4 fL [facility] MCH 28.5 27.1 - 33.3 pg [facility] MCHC 32.5 32.3 - 35.7 g/dL [facility] RDW CV 12.8 11.1 - 14.9 % [facility] RDW SD 41.6 35.7 - 48.1 fL [facility] NRBC abs 0.00 0.00 - 0.01 K/cumm [facility] [facility] Blood 09/05/2024 7:51 AM OVERSEAMER 09/05/2024 8:02 AM OVERSEAMER Narrative [facility] - 09/05/2024 8:40 AM OVERSEAMER Baseline prior to warfarin initiation. Talya Boucher MD LAB BLOOD ORDERABLES Final Res ult Performing Organization Address City/[facility]/ZIP Co de Phone Number [facility] [address] [address] Department [place] [address] * (ABNORMAL) aPTT (09/05/2024 7:47 AM OVERSEAMER) aPTT 27(L) 28 - 38 sec Comment: Interpretive Data Heparin therapeutic range: 66.0 - 100.0 seconds. Range based on correlation with therapeutic heparin activity range of 0.3 - 0.7 Units/mL. Current interpretive data was last revised on 2023. Blood 09/05/2024 7:47 AM OVERSEAMER 09/05/2024 8:02 AM OVERSEAMER Narrative NICOLE - 09/05/2024 8:48 AM OVERSEAMER Baseline prior to warfarin initiation. Talya Boucher MD LAB BLOOD ORDERABLES Final Res ult Performing Organization Address City/State/[facility] Co de Phone Number NICOLE [address] Department [place] [address] * Protime-INR (09/05/2024 7:47 AM OVERSEAMER) PT 11.2 9.7 - 13.0 sec INR 1.04 0.90 - 1.20 NICOLE Comment: Interpretive data Oral anticoagulant therapeutic ranges: Venous thromboembolism prophylaxis or treatment: 2.0-3.0 CARDIOLOGY Standard range: 2.0-3.0 High-intensity range: 2.5-3.5 Refer to indication-specific guidelines for appropriate target ranges for prosthetic heart valve replacement. Current interpretive data was last revised on 2019. Blood 09/05/2024 7:47 AM OVERSEAMER 09/05/2024 8:02 AM OVERSEAMER Narrative NICOLE - 09/05/2024 8:45 AM OVERSEAMER Baseline prior to warfarin initiation. Talya Boucher MD LAB BLOOD ORDERABLES Final Res ult Performing Organization Address City/[facility]/ZIP Co de Phone Number NICOLE [address] [address] Department [place] [address] * Critical Care (09/05/2024 7:05 AM OVERSEAMER) Narrative Lenin Huff MD - 09/05/2024 7:05 AM OVERSEAMER Jessica Martinez NP 09/05/2024 7:30 AM Critical Care Performed by: Jessica Martinez NP Authorized by: Jessica Martinez NP CRITICAL CARE: Team: [facility] Shift: AM Level of Billing: Critical Care [...] plan with the ICU team and other medical/insolvency consultant staff, making frequent assessments and decisions [...] in the medical record us Jessica Martinez NP IN CLINIC/BEDSIDE ORDERA BLES Final Result * POCT glucose (09/05/2024 7:05 AM OVERSEAMER) Glucose, POC 146 70 - 199 mg/dL Blood 09/05/2024 7:05 AM OVERSEAMER 09/05/2024 7:05 AM OVERSEAMER Talya Boucher MD LAB POCT ORDERABLES - DEVICE F inal Result Performing Organization Address City/State/[facility] Co hi Phone Number [facility] [address] [address] Department of Laboratories [place], [place] [id number] * XR Chest 1 View - Portable - in AM (09/05/2024 5:47 AM OVERSEAMER) Anatomical Region Laterality Modality Body, Chest N/A Computed Radiogr aphy 09/05/2024 8:37 AM OVERSEAMER Impressions 09/05/2024 8:37 AM OVERSEAMER Improvement in the left perihilar infiltrate. Residual fluid and atelectasis left base. Extubation.. Electronically signed by: Dick Renteria M.D. Narrative 09/05/2024 8:37 AM OVERSEAMER EXAMINATION: XR CHEST 1 VIEW DATE: 09/05/2024 [...] * Oxyhemoglobin, pulmonary artery (09/05/2024 3:49 AM OVERSEAMER) Oxyhemoglobin, PA 70.1 % Comment: Interpretive Data No reference range established. Current interpretive data was last revised 2019. Blood 09/05/2024 3:49 AM OVERSEAMER 09/05/2024 4:00 AM OVERSEAMER us Jessica Martinez LANDSCAPING SPECIALIST LAB BLOOD ORDERABLES Fin al Result NICOLE [address] [address] Department [place] [address] * eGFR (09/05/2024 3:49 AM OVERSEAMER) Pathologist [facility] eGFR 80 >=60 mL/min/1. 73 m2 Comment: [...] last reviewed 2021. Blood 09/05/2024 3:49 AM OVERSEAMER 09/05/2024 4:02 AM OVERSEAMER us Talya Boucher MD LAB BLOOD ORDERABLES Final Res ult [facility] [address] [address] Department [place] [address] * (ABNORMAL) Differential, auto (09/05/2024 3:49 AM OVERSEAMER) Neutrophil abs 8.8(H) 1.5 - 6.5 K/cumm Imm gran abs 0.1 0.0 - 0.1 K/cumm [facility] Lymphocyte abs 1.0 0.8 - 3.3 K/cumm [facility] Monocyte abs 0.9(H) 0.2 - 0.8 K/cumm [facility] Eosinophil abs 0.0 0.0 - 0.5 K/cumm [facility] Basophil abs 0.0 0.0 - 0.1 K/cumm [facility] Neutrophil pct 81.4 % NICOLE Comment: Interpretive Data Percent cell count reference ranges are not reported, since discordance with absolute values may lead to misinterpretation of CBC data. Current Interpretive Data was last revised on 2017. Imm gran pct 0.6 % NICOLE Comment: Interpretive Data Percent cell count reference ranges are not reported, since discordance with absolute values may lead to misinterpretation of CBC data. Current Interpretive Data was last revised on 2017. Lymphocyte pct 9.2 % CERNER Comment: Interpretive Data Percent cell count reference ranges are not reported, since discordance with absolute values may lead to misinterpretation of CBC data. Current Interpretive Data was last revised on 2017. Monocyte pct 8.6 % C[facility]ER Comment: Interpretive Data Percent cell count reference ranges are not reported, since discordance with absolute values may lead to misinterpretation of CBC data. Current Interpretive Data was last revised on 2017. Eosinophil pct 0.0 % C[facility]ER Comment: Interpretive Data Percent cell count reference ranges are not reported, since discordance with absolute values may lead to misinterpretation of CBC data. Current Interpretive Data was last revised on 2017. Basophil pct 0.2 % C[facility]ER Comment: Interpretive Data Percent cell count reference ranges are not reported, since discordance with absolute values may lead to misinterpretation of CBC data. Current Interpretive Data was last revised on 2017. Blood 09/05/2024 3:49 AM OVERSEAMER 09/05/2024 4:02 AM OVERSEAMER us Talya Boucher MD LAB BLOOD ORDERABLES Final Res ult Performing Organization Address City/[facility]/ZIP Co de Phone Number [facility] [address] [address] Department [place] [address] * (ABNORMAL) Thyroid Function Isabel (09/05/2024 3:49 AM OVERSEAMER) TSH 0.21(L) 0.30 - 4.20 mcIUnit/mL Blood 09/05/2024 3:49 AM OVERSEAMER 09/05/2024 4:02 AM OVERSEAMER us Jessica Martinez NP LAB BLOOD ORDERABLES Fin al Result [facility] RAMOS [address] [address] Department [place] [address] * (ABNORMAL) CBC with auto differential (09/05/2024 3:49 AM OVERSEAMER) WBC 10.8(H) 3.8 - 9.9 K/cumm Hgb 11.7(L) 11.9 - 15.5 g/dL [facility] Hct 35.9 35.6 - 45.5 % [facility] Plt 101(L) 150 - 400 K/cumm [facility] MPV 10.5 9.1 - 12.3 fL [facility] RBC 4.10 3.90 - 5.20 M/cumm [facility] MCV 87.6 81.3 - 96.4 fL [facility] MCH 28.5 27.1 - 33.3 pg [facility] MCHC 32.6 32.3 - 35.7 g/dL [facility] RDW CV 12.7 11.1 - 14.9 % [facility] RDW SD 40.8 35.7 - 48.1 fL [facility] NRBC abs 0.00 0.00 - 0.01 K/cumm [facility] Blood 09/05/2024 3:49 AM OVERSEAMER 09/05/2024 4:02 AM OVERSEAMER us Talya Boucher MD LAB BLOOD ORDERABLES Final Res ult Performing Organization Address [facility]/ZIP Co de Phone Number NICOLE [address] [address] [place] [address] * T3, free (09/05/2024 3:49 AM OVERSEAMER) Free T3 3.0 2.0 - 4.4 pg/mL Blood 09/05/2024 3:49 AM OVERSEAMER 09/05/2024 4:02 AM OVERSEAMER Narrative [facility] - 09/05/2024 12:49 PM OVERSEAMER This test was reflexed from a Free T4 result. us Jessica Martinez NP LAB BLOOD ORDERABLES Fin al Result Performing Organization Address City/[facility]/ZIP Co de Phone Number [facility] [address] [address] Department of [employer] [place], [place] [id number] * T4, free (09/05/2024 3:49 AM OVERSEAMER) Free T4 1.07 0.90 - 1.70 ng/dL Blood 09/05/2024 3:49 AM OVERSEAMER 09/05/2024 4:02 AM OVERSEAMER Jessica Combs Michelle LANDSCAPING SPECIALIST LAB BLOOD ORDERABLES Fin al Result Performing Organization Address [facility] de Phone Number [facility] [address] [address] [facility] [place] [address] * Phosphorus (09/05/2024 3:49 AM OVERSEAMER) Phosphorus, pl 4.0 2.3 - 4.5 mg/dL Blood 09/05/2024 3:49 AM OVERSEAMER 09/05/2024 4:02 AM OVERSEAMER Jessica Lauryn Martinez LANDSCAPING SPECIALIST LAB BLOOD ORDERABLES Fin al Result Performing Organization Address [facility] Phone Number [facility] [address] [address] [facility] [place] [address] * Magnesium (09/05/2024 3:49 AM OVERSEAMER) Magnesium 2.3 1.4 - 2.5 mg/dL Blood 09/05/2024 3:49 AM OVERSEAMER 09/05/2024 4:02 AM OVERSEAMER Talya Boucher MD LAB BLOOD ORDERABLES Final Res ult Performing Organization Address [facility] de Phone Number [facility] [address] [address] [facility] [place] [address] * Hemoglobin A1c (09/05/2024 3:49 AM OVERSEAMER) Hgb A1C 5.3 4.0 - 5.6 % Estimated Average Glucose 105 mg/dL NICOLE RAMOS Comment: The ADA recommends reporting an estimated Average Glucose (eAG) with all Hemoglobin A1c results using the equation derived from a study of 507 normal and diabetic adults. Minority populations were underrepresented and children were not included. (Diabetes Care 31:1809-6540, 2008). The eAG is not equivalent to a fasting glucose. Blood 09/05/2024 3:49 AM OVERSEAMER 09/05/2024 4:02 AM OVERSEAMER Jessica Martinez NP LAB BLOOD ORDERABLES Fin al Result NICOLE [address] [address] Department [place] [address] * Lipid panel (09/05/2024 3:49 AM OVERSEAMER) Cholesterol 90 30 - 199 mg/dL Comment: [...] 3. Yogesh Cole et al. JOEY Cardiol. 2019November 29;5(5):540-548. doi: 10.1001/[email or web address] Current Interpretive Data was [...] 2 NICOLE RAMOS Blood 09/05/2024 3:49 AM OVERSEAMER 09/05/2024 4:02 AM OVERSEAMER us Jessica Martinez NP LAB BLOOD ORDERABLES Fin al Result NICOLE RAMOS [address] Department [place] [address] * (ABNORMAL) Basic metabolic panel (09/05/2024 3:49 AM OVERSEAMER) Sodium 143 135 - 145 mmol/L Potassium, pl 4.8 3.3 - 4.9 mmol/L [facility] Chloride 111(H) 97 - 110 mmol/L [facility] CO2 22 22 - 32 mmol/L [facility] Anion gap 10 2 - 15 mmol/L [facility] BUN 12 6 - 25 mg/dL [facility] Creatinine 0.86 0.60 - 1.10 mg/dL [facility] Glucose 134 70 - 199 mg/dL [facility] Comment: Interpretive Data Fasting glucose >/= [...] Calcium 8.3(L) 8.5 - 10.3 mg/dL [facility] Blood 09/05/2024 3:49 AM OVERSEAMER 09/05/2024 4:02 AM OVERSEAMER Talya Boucher MD LAB BLOOD ORDERABLES Final Res ult Performing Organization Address [facility] Co de Phone Number NICOLE RAMOS [address] Department [place] [address] * POCT glucose (09/05/2024 2:19 AM OVERSEAMER) Glucose, POC 132 70 - 199 mg/dL Blood 09/05/2024 2:19 AM OVERSEAMER 09/05/2024 2:19 AM OVERSEAMER Talya Boucher MD LAB POCT ORDERABLES - DEVICE F inal Result Performing Organization Address City/[facility]/ZIP Co de Phone Number NICOLE RAMOS [address] [address] [place] [address] * Critical Care (09/04/2024 11:38 PM OVERSEAMER) Narrative Cullen Lezama MD - 09/04/2024 11:38 PM OVERSEAMER Fito Nation PA 09/05/2024 2:57 AM Critical [...] plan with the ICU team and other medical/insolvency consultant staff, making frequent assessments and decisions [...] Result * POCT glucose (09/04/2024 9:48 PM OVERSEAMER) Glucose, POC 123 70 - 199 mg/dL Blood 09/04/2024 9:48 PM OVERSEAMER 09/04/2024 9:48 PM OVERSEAMER Talya Boucher MD LAB POCT ORDERABLES - DEVICE F inal Result Performing Organization Address City/[facility]/ZIP Co de Phone Number NICOLE RAMOS [address] [address] Department [place] [address] * POCT glucose (09/04/2024 8:41 PM OVERSEAMER) Glucose, POC 131 70 - 199 mg/dL Blood 09/04/2024 8:41 PM OVERSEAMER 09/04/2024 8:41 PM OVERSEAMER Talya Boucher MD LAB POCT ORDERABLES - DEVICE F inal Result Performing Organization Address [facility] de Phone Number [facility] [address] [address] Department [place] [address] * POCT glucose (09/04/2024 7:16 PM OVERSEAMER) Glucose, POC 125 70 - 199 mg/dL Blood 09/04/2024 7:16 PM OVERSEAMER 09/04/2024 7:16 PM OVERSEAMER Talya Boucher MD LAB POCT ORDERABLES - DEVICE F inal Result Performing Organization Address [facility] de Phone Number [facility] [address] [address] Department [place] [address] * (ABNORMAL) Blood gas, arterial (09/04/2024 6:16 PM OVERSEAMER) pH, Art 7.34(L) 7.35 - 7.45 PCO2, [...] % [facility] Blood 09/04/2024 6:16 PM OVERSEAMER 09/04/2024 6:23 PM OVERSEAMER Talya Boucher MD LAB BLOOD ORDERABLES Final Res ult Performing Organization Address [facility] Co de Phone Number NICOLE RAMOS [address] [address] Department [place] [address] * POCT glucose (09/04/2024 6:13 PM OVERSEAMER) Glucose, POC 112 70 - 199 mg/dL Blood 09/04/2024 6:1 3 PM OVERSEAMER 09/04/2024 6:13 PM OVERSEAMER Talya Boucher MD LAB POCT ORDERABLES - DEVICE F inal Result Performing Organization Address City/[facility] Co de Phone Number NICOLE [address] [address] Department [place] [address] * Calcium, ionized, whole blood (09/04/2024 5:25 PM OVERSEAMER) Ca, ionized, bld 4.67 4.50 - 5.10 mg/dL Blood 09/04/2024 5:25 PM OVERSEAMER 09/04/2024 5:40 PM OVERSEAMER Talya Boucher MD LAB BLOOD ORDERABLES Final Res ult Performing Organization Address [facility] Co de Phone Number NICOLE [address] [address] [facility] [place] [address] * eGFR (09/04/2024 5:25 PM OVERSEAMER) eGFR 73 >=60 mL/min/1. 73 m2 Comment: [...] last reviewed 2021. Blood 09/04/2024 5:25 PM OVERSEAMER 09/04/2024 5:43 PM OVERSEAMER Talya Boucher MD LAB BLOOD ORDERABLES Final Res ult Performing Organization Address City/[facility] Co de Phone Number NICOLE RAMOS [address] [address] Department [place] [address] * (ABNORMAL) CBC without differential (09/04/2024 5:25 PM OVERSEAMER) WBC 14.8(H) 3.8 - 9.9 K/cumm Hgb 11.7(L) 11.9 - 15.5 g/dL [facility] Hct 35.3(L) 35.6 - 45.5 % [facility] Plt 107(L) 150 - 400 K/cumm [facility] MPV 10.8 9.1 - 12.3 fL [facility] RBC 4.16 3.90 - 5.20 M/cumm [facility] MCV 84.9 81.3 - 96.4 fL [facility] MCH 28.1 27.1 - 33.3 pg [facility] MCHC 33.1 32.3 - 35.7 g/dL [facility] RDW CV 12.4 11.1 - 14.9 % [facility] RDW SD 38.2 35.7 - 48.1 fL [facility] NRBC abs 0.00 0.00 - 0.01 K/cumm [facility] Blood 09/04/2024 5:25 PM OVERSEAMER 09/04/2024 5:43 PM OVERSEAMER Talya Boucher MD LAB BLOOD ORDERABLES Final Res ult Performing Organization Address [facility] Co de Phone Number NICOLE RAMOS [address] [address] Department [place] [address] * (ABNORMAL) Phosphorus (09/04/2024 5:25 PM OVERSEAMER) Phosphorus, pl 1.7(L) 2.3 - 4.5 mg/dL Blood 09/04/2024 5:25 PM OVERSEAMER 09/04/2024 5:40 PM OVERSEAMER Talya Boucher MD LAB BLOOD ORDERABLES Final Res ult Performing Organization Address [facility] Co de Phone Number NICOLE RAMOS [address] [address] Department [place] [address] * Magnesium (09/04/2024 5:25 PM OVERSEAMER) Pathologist [facility] Magnesium 2.3 1.4 - 2.5 mg/dL Blood 09/04/2024 5:25 PM OVERSEAMER 09/04/2024 5:40 PM OVERSEAMER Talya Boucher MD LAB BLOOD ORDERABLES Final Res ult Performing Organization Address [facility] de Phone Number NICOLE RAMOS [address] [address] Department [place] [address] * (ABNORMAL) Blood gas, arterial (09/04/2024 5:25 PM OVERSEAMER) Pathologist [facility] pH, Art 7.50(H) 7.35 - 7.45 PCO2, [...] - 95 % [facility] Blood 09/04/2024 5:2 5 PM OVERSEAMER 09/04/2024 5:40 PM OVERSEAMER Talya Boucher MD LAB BLOOD ORDERABLES Final Res ult Performing Organization Address [facility] de Phone Number [facility] [address] [address] Department [place] [address] * (ABNORMAL) Basic metabolic panel (09/04/2024 5:25 PM OVERSEAMER) Sodium 141 135 - 145 mmol/L Potassium, pl 4.8 3.3 - 4.9 mmol/L [facility] Chloride 109 97 - 110 mmol/L [facility] CO2 21(L) 22 - 32 mmol/L [facility] Anion gap 11 2 - 15 mmol/L [facility] BUN 12 6 - 25 mg/dL [facility] Creatinine 0.93 0.60 - 1.10 mg/dL [facility] Glucose 118 70 - 199 mg/dL [facility] Comment: Interpretive Data Fasting glucose >/= [...] Calcium 8.5 8.5 - 10.3 mg/dL [facility] Blood 09/04/2024 5:25 PM OVERSEAMER 09/04/2024 5:40 PM OVERSEAMER Talya Boucher MD LAB BLOOD ORDERABLES Final Res ult [facility] [address] [address] Department [place] [address] * POCT glucose (09/04/2024 5:06 PM OVERSEAMER) Glucose, POC 116 70 - 199 mg/dL Blood 09/04/2024 5:06 PM OVERSEAMER 09/04/2024 5:06 PM OVERSEAMER Talya Boucher MD LAB POCT ORDERABLES - DEVICE F inal Result NICOLE RAMOS [address] [address] Department [place] [address] * POCT glucose (09/04/2024 3:55 PM OVERSEAMER) Glucose, POC 101 70 - 199 mg/dL Blood 09/04/2024 3:55 PM OVERSEAMER 09/04/2024 3:55 PM OVERSEAMER Talya Boucher MD LAB POCT ORDERABLES - DEVICE F inal Result Performing Organization Address [facility] Co de Phone Number NICOLE RAMOS [address] Department [place] [address] * Blood culture Blood (09/04/2024 3:42 PM OVERSEAMER) Report Final Report: No growth Comment:Testing performed by : [facility], [address] [place]., [address] Blood 09/04/2024 3:42 PM OVERSEAMER 09/04/2024 6:05 PM OVERSEAMER Narrative NICOLE - 09/09/2024 7:00 AM OVERSEAMER From a different site than #1. Collection->Peripheral [...] performance characteristics have been verified by the [facility] Microbiology Laboratory. For questions about this culture, contact the Microbiology Laboratory at [phone]. Interpretive data was last revised on 24. Jessica Martinez NP LAB MICROBIOLOGY - GENER AL ORDERABLES Final Result [facility] [address] [address] Department [place] [address] * Blood culture Blood (09/04/2024 3:42 PM OVERSEAMER) Report Final Report: No growth Comment:Testing performed by : [facility], [address] [place]., [address] Blood 09/04/2024 3:42 PM OVERSEAMER 09/04/2024 6:05 PM OVERSEAMER Narrative NICOLE RAMOS - 09/09/2024 7:00 AM OVERSEAMER Collection->Peripheral 1. Blood cultures are incubated for [...] performance characteristics have been verified by the [facility] Microbiology Laboratory. For questions about this culture, contact the Microbiology Laboratory at [phone]. Interpretive data was last revised on 24. Jessica Martinez NP LAB MICROBIOLOGY - GENER AL ORDERABLES Final Result Performing Organization Address City/[facility]/ZIP Co de Phone Number NICOLE RAMOS [address] [address] Department [place] [address] * Calcium, ionized, whole blood (09/04/2024 3:21 PM OVERSEAMER) Ca, ionized, bld 4.68 4.50 - 5.10 mg/dL Blood 09/04/2024 3:21 PM OVERSEAMER 09/04/2024 3:29 PM OVERSEAMER Talya Boucher MD LAB BLOOD ORDERABLES Final Res ult Performing Organization Address [facility] Co de Phone Number NICOLE RAMOS [address] [address] Department [place] [address] * (ABNORMAL) Blood gas, arterial (09/04/2024 3:21 PM OVERSEAMER) pH, Art 7.48(H) 7.35 - 7.45 PCO2, [...] % [facility] Blood 09/04/2024 3:21 PM OVERSEAMER 09/04/2024 3:29 PM OVERSEAMER Jessica Martinez NP LAB BLOOD ORDERABLES Fin al Result Performing Organization Address [facility] Co de Phone Number NICOLE RAMOS [address] [address] [facility] [place] [address] * POCT glucose (09/04/2024 2:48 PM OVERSEAMER) Glucose, POC 91 70 - 199 mg/dL Blood 09/04/2024 2:48 PM OVERSEAMER 09/04/2024 2:48 PM OVERSEAMER Talya Boucher MD LAB POCT ORDERABLES - DEVICE F inal Result Performing Organization Address [facility] Co de Phone Number NICOLE RAMOS [address] [address] Department [place] [address] * POCT glucose (09/04/2024 1:49 PM OVERSEAMER) Glucose, POC 80 70 - 199 mg/dL Blood 09/04/2024 1:49 PM OVERSEAMER 09/04/2024 1:49 PM OVERSEAMER Talya Boucher MD LAB POCT ORDERABLES - DEVICE F inal Result Performing Organization Address [facility] Phone Number NICOLE RAMOS [address] [address] Department [place] [address] * Critical Care (09/04/2024 1:12 PM OVERSEAMER) Narrative Lenin Huff MD - 09/04/2024 1:12 PM OVERSEAMER Jessica Martinez NP 09/04/2024 1:13 PM Critical [...] plan with the ICU team and other medical/insolvency consultant staff, making frequent assessments and decisions [...] in the medical record us Jessica Martinez LANDSCAPING SPECIALIST IN CLINIC/BEDSIDE ORDERA BLES Final Result * XR Chest 1 View - Portable (09/04/2024 12:57 PM OVERSEAMER) Anatomical Region Laterality Modality Body, Chest N/A Computed Radiogr aphy 09/04/2024 1:04 PM OVERSEAMER Impressions 09/04/2024 1:04 PM OVERSEAMER Postsurgical changes. Superior mediastinal widening. Fluid and atelectasis left base. No definite failure or pneumothorax. Nasogastric tube should BE advanced further into the stomach. Electronically signed by: Dick Renteria M.D. Narrative 09/04/2024 1:04 PM OVERSEAMER EXAMINATION: XR CHEST 1 VIEW DATE: 09/04/2024 [...] gastroesophageal junction and should BE advanced further. Chelsea-Camden catheter entering the right IJ approach directed [...] gastroesophageal junction and should BE advanced further. Chelsea-Camden catheter entering the right IJ approach directed to the main pulmonary artery. IMPRESSION: Postsurgical changes. Superior mediastinal widening. Fluid and atelectasis left base. No definite failure or pneumothorax. Nasogastric tube should BE advanced further into the stomach. Electronically signed by: Dick Renterai M.D. Talya Boucher MD IMG XR PROCEDURES Final Result * Surgical pathology (09/04/2024 12:35 PM OVERSEAMER) Tissue specimen (specimen) (Heart Valve) 09/04/2024 9:46 AM OVERSEAMER Narrative PATHOLOGY - 09/05/2024 10:09 AM OVERSEAMER EPIC results best viewed via link to PDF [facility] Department of Pathology [address] [place] [id number] Note to Patients: This report may [...] Final Report Patient Name: ZURI ACEVES Address: [address] [place] [address] Gender: F : 1970 (Age: 54) Service: Cardiothoracic Location: [facility] Hospital #: [id number] Patient Type: [facility] Taken: 09/04/2024 Received: 09/04/2024 Accessioned: 09/04/2024 Reported: [...] determined by the Surgical Pathology Department at [facility] as part of an ongoing production quality manager program and in compliance with federally mandated [...] characteristics determined by the Surgical Pathology Department [facility]. It has not been cleared or approved by the U. S. Food and Drug Administration. Note for decalcified specimens: This assay has not been validated on decalcified tissues. Results should be interpreted with caution given the possibility of false negativity on decalcified specimens us Talya Boucher MD LAB PATHOLOGY ORDERABLES Final Result PATHOLOGY [address] [place] [address] * eGFR (09/04/2024 12:27 PM OVERSEAMER) eGFR 70 >=60 mL/min/1. 73 m2 Comment: [...] reviewed 2021. Blood 09/04/2024 12:2 7 PM OVERSEAMER 09/04/2024 12:34 PM OVERSEAMER Talya Boucher MD LAB BLOOD ORDERABLES Final Res ult Performing Organization Address City/[facility]/ZIP Co de Phone Number NICOLE [address] [address] [place] [address] * (ABNORMAL) aPTT (09/04/2024 12:27 PM OVERSEAMER) aPTT 26(L) 28 - 38 sec Comment: Interpretive Data Heparin therapeutic range: 66.0 - 100.0 seconds. Range based on correlation with therapeutic heparin activity range of 0.3 - 0.7 Units/mL. Current interpretive data was last revised on 2023. Blood 09/04/2024 12:2 7 PM OVERSEAMER 09/04/2024 12:34 PM OVERSEAMER Talya Boucher MD LAB BLOOD ORDERABLES Final Res ult FACUNDOJYOTI [address] Department [employer] [place], [place] [id number] * Protime-INR (09/04/2024 12:27 PM OVERSEAMER) Pathologist [facility] PT 12.1 9.7 - 13.0 sec INR 1.12 0.90 - 1.20 [facility] Comment: Interpretive data Oral anticoagulant therapeutic ranges: Venous thromboembolism prophylaxis or treatment: 2.0-3.0 CARDIOLOGY Standard range: 2.0-3.0 High-intensity range: 2.5-3.5 Refer to indication-specific guidelines for appropriate target ranges for prosthetic heart valve replacement. Current interpretive data was last revised on 2019. Blood 09/04/2024 12:2 7 PM OVERSEAMER 09/04/2024 12:34 PM OVERSEAMER Talya Boucher MD LAB BLOOD ORDERABLES Final Res ult NICOLE [address] [address] Department [place] [address] * (ABNORMAL) CBC without differential (09/04/2024 12:27 PM OVERSEAMER) Pathologist [facility] WBC 32.6(H) 3.8 - 9.9 K/cumm Hgb 11.9 11.9 - 15.5 g/dL [facility] Hct 36.5 35.6 - 45.5 % [facility] Plt 130(L) 150 - 400 K/cumm [facility] MPV 10.3 9.1 - 12.3 fL [facility] RBC 4.18 3.90 - 5.20 M/cumm [facility] MCV 87.3 81.3 - 96.4 fL [facility] MCH 28.5 27.1 - 33.3 pg [facility] MCHC 32.6 32.3 - 35.7 g/dL [facility] RDW CV 12.3 11.1 - 14.9 % [facility] RDW SD 39.7 35.7 - 48.1 fL [facility] NRBC abs 0.00 0.00 - 0.01 K/cumm [facility] Blood 09/04/2024 12:2 7 PM OVERSEAMER 09/04/2024 12:34 PM OVERSEAMER Talya Boucher MD LAB BLOOD ORDERABLES Final Res ult NICOLE RAMOS [address] [address] [facility] [place] [address] * Phosphorus (09/04/2024 12:27 PM OVERSEAMER) Phosphorus, pl 2.7 2.3 - 4.5 mg/dL Blood 09/04/2024 12:2 7 PM OVERSEAMER 09/04/2024 3:18 PM OVERSEAMER Talya Boucher MD LAB BLOOD ORDERABLES Final Res ult Performing Organization Address [facility]/ZIP Co de Phone Number FACUNDOJYOTI RAMOS [address] [address] Department [place] [address] * Phosphorus (09/04/2024 12:27 PM OVERSEAMER) Phosphorus, pl 2.7 2.3 - 4.5 mg/dL Blood 09/04/2024 12:2 7 PM OVERSEAMER 09/04/2024 12:34 PM OVERSEAMER Jessica Martinez NP LAB BLOOD ORDERABLES Fin al Result Performing Organization Address [facility] Co de Phone Number INCOLE RAMOS [address] [address] Department [place] [address] * (ABNORMAL) Magnesium (09/04/2024 12:27 PM OVERSEAMER) Magnesium 2.8(H) 1.4 - 2.5 mg/dL Blood 09/04/2024 12:2 7 PM OVERSEAMER 09/04/2024 3:18 PM OVERSEAMER Talya Boucher MD LAB BLOOD ORDERABLES Final Res ult Performing Organization Address City/[facility]/ZIP Co de Phone Number NICOLE RAMOS [address] [address] Department [place] [address] * (ABNORMAL) Blood gas, arterial (09/04/2024 12:27 PM OVERSEAMER) pH, Art 7.28(L) 7.35 - 7.45 PCO2, [...] [facility]ER CH Blood 09/04/2024 12:2 7 PM OVERSEAMER 09/04/2024 12:35 PM OVERSEAMER Talya Boucher MD LAB BLOOD ORDERABLES Final Res ult [facility] [address] [address] Department [place] [address] * (ABNORMAL) Basic metabolic panel (09/04/2024 12:27 PM OVERSEAMER) Sodium 142 135 - 145 mmol/L Potassium, pl 3.6 3.3 - 4.9 mmol/L [facility] Chloride 110 97 - 110 mmol/L [facility] CO2 20(L) 22 - 32 mmol/L [facility] Anion gap 12 2 - 15 mmol/L [facility] BUN 11 6 - 25 mg/dL [facility] Creatinine 0.96 0.60 - 1.10 mg/dL [facility] Glucose 140 70 - 199 mg/dL [...] [facility]ER CH Blood 09/04/2024 12:2 7 PM OVERSEAMER 09/04/2024 12:34 PM OVERSEAMER Talya Boucher MD LAB BLOOD ORDERABLES Final Res ult Performing Organization Address City/[facility]/ZIP Co de Phone Number NICOLE RAMOS [address] [address] [facility] [place] [address] * POCT glucose (09/04/2024 11:55 AM OVERSEAMER) Glucose, POC 138 70 - 199 mg/dL Blood 09/04/2024 11:5 5 AM OVERSEAMER 09/04/2024 11:55 AM OVERSEAMER Talya Boucher MD LAB POCT ORDERABLES - DEVICE F inal Result Performing Organization Address [facility] Co de Phone Number NICOLE RAMOS [address] [address] Department [place] [address] * (ABNORMAL) POC Blood Gas and Chemistries, Arterial - (09/04/2024 11:04 AM OVERSEAMER) pH, Art POC 7.34(L) 7.35 - 7.45 [...] [facility]ER CH Blood 09/04/2024 11:0 4 AM OVERSEAMER 09/04/2024 11:04 AM OVERSEAMER Talya Boucher MD LAB POCT ORDERABLES - DEVICE F inal Result Performing Organization Address [facility]/ZIP Co de Phone Number NICOLE RAMOS [address] [address] [place] [address] * POC Activated Clotting Time, High Range (09/04/2024 11:00 AM OVERSEAMER) ACT 107 87 - 138 sec Blood 09/04/2024 11:0 0 AM OVERSEAMER 09/04/2024 11:00 AM OVERSEAMER Talya Boucher MD LAB BLOOD ORDERABLES Final Res ult Performing Organization Address [facility] Co de Phone Number FACUNDOJYOTI RAMOS [address] [address] Department [place] [address] * (ABNORMAL) POC Blood Gas and Chemistries, Arterial - (09/04/2024 10:20 AM OVERSEAMER) pH, Art POC 7.32(L) 7.35 - 7.45 [...] [facility]ERNER CH Blood 09/04/2024 10:2 0 AM OVERSEAMER 09/04/2024 10:20 AM OVERSEAMER Talya Boucher MD LAB POCT ORDERABLES - DEVICE F inal Result Performing Organization Address [facility] Co de Phone Number NICOLE RAMOS [address] [address] [place] [address] * (ABNORMAL) POC Activated Clotting Time, High Range (09/04/2024 10:19 AM OVERSEAMER) ACT 442(H) 87 - 138 sec Blood 09/04/2024 10:1 9 AM OVERSEAMER 09/04/2024 10:19 AM OVERSEAMER Talya Boucher MD LAB BLOOD ORDERABLES Final Res ult Performing Organization Address [facility] Co de Phone Number NICOLE RACHEL [address] [address] [place] [address] * (ABNORMAL) POC Blood Gas and Chemistries, Arterial - (09/04/2024 9:57 AM OVERSEAMER) pH, Art POC 7.33(L) 7.35 - 7.45 [...] g/dL [facility] Blood 09/04/2024 9:57 AM OVERSEAMER 09/04/2024 9:57 AM OVERSEAMER Talya Boucher MD LAB POCT ORDERABLES - DEVICE F inal Result Performing Organization Address [facility] Co de Phone Number [facility] [address] [address] [place] [address] * (ABNORMAL) Platelet count (09/04/2024 9:56 AM OVERSEAMER) Plt 123(L) 150 - 400 K/cumm Blood 09/04/2024 9:56 AM OVERSEAMER 09/04/2024 10:10 AM OVERSEAMER Talya Boucher MD LAB BLOOD ORDERABLES Final Res ult Performing Organization Address [facility]/ZIP Co de Phone Number [facility] [address] [address] Department [place] [address] * (ABNORMAL) POC Blood Gas and Chemistries, Arterial - (09/04/2024 9:55 AM OVERSEAMER) pH, Art POC 7.35 7.35 - 7.45 [...] g/dL [facility] Blood 09/04/2024 9:55 AM OVERSEAMER 09/04/2024 9:55 AM OVERSEAMER us Talya Boucher MD LAB POCT ORDERABLES - DEVICE F inal Result [facility] [address] [address] Department [place] [address] * (ABNORMAL) POC Activated Clotting Time, High Range (09/04/2024 9:54 AM OVERSEAMER) ACT 526(H) 87 - 138 sec Blood 09/04/2024 9:54 AM OVERSEAMER 09/04/2024 9:54 AM OVERSEAMER Talya Boucher MD LAB BLOOD ORDERABLES Final Res ult NICOLE RAMOS [address] [address] [place] [address] * (ABNORMAL) POC Blood Gas and Chemistries, Arterial - (09/04/2024 9:19 AM OVERSEAMER) pH, Art POC 7.32(L) 7.35 - 7.45 [...] g/dL [facility] Blood 09/04/2024 9:19 AM OVERSEAMER 09/04/2024 9:19 AM OVERSEAMER Talya Boucher MD LAB POCT ORDERABLES - DEVICE F inal Result NICOLE RAMOS [address] [address] Department [place] [address] * (ABNORMAL) POC Activated Clotting Time, High Range (09/04/2024 9:18 AM OVERSEAMER) ACT 526(H) 87 - 138 sec Blood 09/04/2024 9:18 AM OVERSEAMER 09/04/2024 9:18 AM OVERSEAMER us Talya Boucher MD LAB BLOOD ORDERABLES Final Res ult NICOLE RAMOS [address] [address] Department [place] [address] * BW AN SHEATH INTRODUCER PERFORMABLE, PULMONARY ARTERY CATH (09/04/2024 9:15 AM OVERSEAMER) Narrative Enoc Guerrero AA - 09/04/2024 9:15 AM OVERSEAMER Enoc Guerrero AA 09/04/2024 9:15 AM Central [...] MD ANESTHESIA ORDERABLES Final Resu lt * NE AN ELECTIVE ENDOTRACHEAL AIRWAY (09/04/2024 9:14 AM OVERSEAMER) Enoc King AA - 09/04/2024 9:14 AM OVERSEAMER Enoc Guerrero AA 09/04/2024 9:15 AM Airway [...] lt * Arterial Line (09/04/2024 9:13 AM OVERSEAMER) Enoc King AA - 09/04/2024 9:13 AM OVERSEAMER Enoc Guerrero AA 09/04/2024 9:14 AM Arterial Line Patient location: pre-op holding Indication: continuous blood pressure monitoring and blood sampling needed Staff: Supervising provider: Augie Gannon MD Placed by: KATRIN: Enoc Guerrero AA Procedure prep: Prep solution: [...] Clotting Time, High Range (09/04/2024 8:53 AM OVERSEAMER) ACT 448(H) 87 - 138 sec Blood 09/04/2024 8:53 AM OVERSEAMER 09/04/2024 8:53 AM OVERSEAMER us Talya Boucher MD LAB BLOOD ORDERABLES Final Res ult [facility] [address] [facility] Department [place] [address] * SCOTTY (09/04/2024 8:28 AM OVERSEAMER) Anatomical Region Laterality Modality Other Narrative 09/04/2024 8:28 AM OVERSEAMER Augie Gannon MD 09/04/2024 8:30 AM SCOTTY [...] inferior: hypokinetic 16- Apical septal: hypokinetic 17- [place]: hypokinetic Valves: Aortic Valve: Annulus: normal (22 [...] and Chemistries, Arterial - (09/04/2024 8:21 AM OVERSEAMER) pH, Art POC 7.43 7.35 - 7.45 [...] g/dL [facility] Blood 09/04/2024 8:21 AM OVERSEAMER 09/04/2024 8:21 AM OVERSEAMER Talya Boucher MD LAB POCT ORDERABLES - DEVICE F inal Result Performing Organization Address City/[facility]/ZIP Co de Phone Number NICOLE [address] [address] Department [place] [address] * POC Activated Clotting Time, High Range (09/04/2024 8:18 AM OVERSEAMER) ACT 109 87 - 138 sec Blood 09/04/2024 8:18 AM OVERSEAMER 09/04/2024 8:18 AM OVERSEAMER Talya Boucher MD LAB BLOOD ORDERABLES Final Res ult NICOLE [address] [address] Department [place] [address] * Check Sample (09/04/2024 6:51 AM OVERSEAMER) ABO Rh B Positive CH HCLL OTHER 09/04/2024 6:51 AM OVERSEAMER 09/04/2024 6:51 AM OVERSEAMER Talya Boucher MD LAB BLOOD ORDERABLES Final Res ult NICOLE [address] [address] Department [place] [address] CH * POCT hCG, urine (09/04/2024 6:30 AM OVERSEAMER) HCG, ur, POC Negative Negative Lot Number [id number] QC Backgroud Clear Acceptable QC Control Line Acceptable Urine 09/04/2024 6:30 AM OVERSEAMER Talya Boucher MD POINT OF CARE TEST ORDERABLES Final Result * Prepare RBC: 4 Units (09/04/2024 5:35 AM OVERSEAMER) Product code R4112C30 [facility] Unit Number [id number] [id number] [facility]ER CH Product Blood Type BPOS [facility]ERNER CH Dispense Status RETURNED [facility]ER [facility] Product code J5303L40 Unit Number [id number] 0-R [facility]ER CH Product Blood Type BPOS CERNER CH Dispense Status RETURNED [facility]ERNER CH Product code C9296H39 CERNER CH Unit Number [id number] 8-E [facility]ERNER CH Product Blood Type BPOS CERNER CH Dispense Status RETURNED [facility]ERNER CH Product code T1991F57 [facility]ER CH Unit Number [id number] 6-V [facility]ER [facility] Product Blood Type BPOS CERNER CH Dispense Status RETURNED [facility]ERNER CH Blood 09/04/2024 5:35 AM OVERSEAMER Narrative [facility]ER CH - 09/05/2024 12:07 AM OVERSEAMER Specify Procedure:->AVR Are special requirements needed? (All products are leukoreduced and CMV- safe)- >No Date required:-[id number] [facility] # of [id number] Reasons:-Hold for procedure (specify procedure)} us Leeann Odom LANDSCAPING SPECIALIST BLOOD BANK [place]ODUCT [place] [address] [address] Department [place] [address] from Last 3 Months Insurance [employer] [place] [address] [employer] Advance Directives For more information, please contact: [phone] * Full Code (Latest Code Status on File) Date Activated Date Inactivated Comments 09/04/2024 12:23 PM 09/08/2024 9:18 PM Healthcare Agents on File Name Relationship Healthcare Agent Relationshi p Communication Nitesh Ellis Spouse Health Care Agent Care Teams Therapy Teacher Relationship Specialty Start Date End Date Geovany Wong DO [address] [place] [address] PCP - General Internal Medicine 09/06/24 Dl Phillips MD Referring Physician Cardiology 12/23/22 Severino Aden MD [address] [place] [address] Consulting Physician Cardiothoracic Surgery 12/23/22 Talya Boucher MD [address] [facility] [address] [place] [address] Surgeon Cardiothoracic Surgery 09/08/24 Qasim Ross MD [address] [place] [address] Consulting Physician Cardiology 09/08/24
--- NOTE | 2024-11-25 12:26 | ECG_ITS ---
Test Date: 2024-11-25 12:28:46 Measurements Intervals Wittman Rate: 108 P: 52 AR: 141 QRS: 1 QRSD: 97 T: 50 QT: 352 QTc: 473 Interpretive Statements SINUS TACHYCARDIA BORDERLINE R WAVE PROGRESSION, ANTERIOR LEADS INFERIOR INFARCT, AGE INDETERMINATE BASELINE ARTIFACT- I, II, AVR, AVL, AVF, V1-V2 ABNORMAL ECG No previous ECG available for comparison Electronically Signed On 11-25-2024 12:48:07 CDT by Surendra Phillips D.O.
[2024-11-25 12:32] VITALS: BP 142/88; PULSE 110; RESP 17; O2SAT 100
[2024-11-25 12:50] VITALS: O2SAT 99
[2024-11-25 12:51] VITALS: BP 135/93; PULSE 103; RESP 16; O2SAT 99
--- OUTSIDE RECORDS SUMMARY | 2024-11-25 12:58 | XMS_ITS | Encounter Summary ---
Author Organization [facility] Healthcare Address [address] [place] [address] Care Team Providers Care Data Technical Lead Name Role Phone Dl Phillips MD Unavailable [phone] Severino Aden MD Unavailable [phone] Geovany Wong DO Primary Care Provider [phone] Talya Boucher MD Unavailable [phone] Qasim Ross MD Unavailable Encounter Details Date Type Department Care Team (Late st Contact Info) Description 09/11/2024 [facility] Post Discharge Follow up phone call [facility] [address] [place] [address] Shagufta Ureña, BERTHA Social History Tobacco Use Types Packs/Day Years Used Date Smoking Tobacco: Every Day Cigarettes 0.3 25 Passive Smoke Exposure: Yes Smokeless Tobacco: Never Alcohol Use Standard Drinks/Week Comments Yes 1 (1 standard drink = 0.6 oz pur e alcohol) seldom OASIS D0700: Social Isolation Answer Da te Recorded Frequency of experiencing loneliness or isolatio n Never 09/11/2024 [facility] Utilities Answer Date Recorded In the past 12 months has Worksurfers e electric, gas, oil, or water company [...] often do you attend chur ch or mu-ism services? Never 09/06/2024 Do you belong to any clubs o r organizations such as congregation groups, unions, fraternal or athletic groups, or [...] were you homeless or living in a longterm (including now)? No 09/06/2024 Personal Safety Answer Date Recorded Have you ever been in or are you currently in a harmful physical or emotional relationship or is someone making you feel afraid or unsafe? 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 Gender Identity Not on file Sexual Orientation Not on file documented as of this encounter Plan of Treatment Not on file documented as of this encounter Visit Diagnoses Not on filedocumented in this encounter Care Teams Data Technical Lead Relationship Specialty Start Date End Date Geovany Wong DO [address] [place] [address] PCP - General Internal Medicine 09/06/24 Dl Phillips MD Referring Physician Cardiology 12/23/22 Severino Aden MD [address] [facility] [address] [place] [address] Consulting Physician Cardiothoracic Surgery 12/23/22 Talya Boucher MD [address] [facility] [address] [place] [address] Surgeon Cardiothoracic Surgery 09/08/24 Qasim Ross MD [address] [place], [place] [address] Consulting Physician Cardiology 09/08/24 documented as of this encounter
--- OUTSIDE RECORDS SUMMARY | 2024-11-25 12:58 | XMS_ITS | Encounter Summary ---
Author Organization [facility] Healthcare Address [address] [place] [address] Care Team Providers Care Ribbon Inker Name Role Phone Perry Boykin MD Primary Care Provider [phone] Dl Phillips MD Unavailable [phone] Severino Aden MD Unavailable [phone] Geovany Wong DO Primary Care Provider [phone] Talya Boucher MD Unavailable [phone] Qasim Ross MD Unavailable Encounter Details Date Type Department Care Team (Late st Contact Info) Description 07/23/2024 Orders Only [facility] Health Information Management [address] [place] [address] Qasim Ross MD [address] [place] [address] Social History Tobacco Use Types Packs/Day [...] on file 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 Gender Identity Not on file Sexual Orientation [...] on filedocumented in this encounter Care Teams Ribbon Inker Relationship Specialty Start Date End Date Perry Boykin MD [address] [place] [address] PCP - General 10/29/16 09/05/24 Geovany Wong DO [address] [place] [address] PCP - General Internal Medicine 09/06/24 Dl Phillips MD [address] [place] [address] Referring Physician Cardiology 12/23/22 Severino Aden MD [address] [place] [address] Consulting Physician Cardiothoracic Surgery 12/23/22 Talya Boucher MD [address] [facility] [address] [place] [address] Surgeon Cardiothoracic Surgery 09/08/24 Qasim Ross MD [address] [address] Consulting Physician Cardiology 09/08/24 documented as of this encounter
--- OUTSIDE RECORDS SUMMARY | 2024-11-25 12:59 | XMS_ITS | Clinical Summary ---
Author Organization [facility] [address] Address [address] [place] [address] Care Team Providers Care Forming Tube Selector Name Role Phone Dl Phillips MD Unavailable [phone] Severino Aden MD Unavailable Geovany Wong DO Primary Care Provider [phone] Talya Boucher MD Unavailable [phone] Qasim Ross MD Unavailable Allergies Active [...] 1 Body mass index 40.0-44.9, adult ([facility]) 05/13 Congenital bicuspid aortic valve 02/17/2023 Hypertrophy [...] patient was located at home in the [facility]. The patient visit started at 10:15 a.m. and ended at 10:20 a.m.. The patient has been informed that the visit may not be secure and acknowledged the information. I have explained the option of participating in a telephone or video visit during the [facility] emergency to the patient. After being given [...] a telephone or video visit during the [facility] [place] [address] emergency to the patient. After being given an opportunity to ask questions about and discuss this type of visit, the patient verbally consented to proceeding with the telephone/video visit. The patient understands that this service replaces an office visit and they may be billed and/or responsible for any applicable copayments. @SIGENC2@ @NH@ Assessment & Plan (10/15/2021 8:38 AM CDT): [...] the records for a blood work from [facility] accordingly. She does not have [...] the records for a blood work from [facility] accordingly. She does not have [...] Department Care Team Description 10/04/2024 2:00 PM CONTENT MANAGER Office Visit [facility] Surgery [address] [place] [address] [address] [place] [phone] Leeann Odom NP S/P AVR (aortic valve replacement) (Primary Dx) 09/26/2024 8:00 AM CONTENT MANAGER Home Care Visit [facility] Health [address] [place] [address] Jaclyn Nava RN SN NON OASIS DISCHARGE 09/26/2024 Orders Only [facility] Surgery [address] [place] [address] [address] [place] [address] Cynthia Haley NP 09/26/2024 Documentation [facility] Surgery [address] [place] [address] [address] [place] [address] Cynthia Haley NP Anticoagulation 09/26/[address] [place] [address] Leeann Odom NP RTW Form 09/26/2024 Orders Only [facility] Surgery [address] [place] [address] [address] [place] [address] Leeann Odom NP H/O heart valve replacement with mechanical valve (Primary Dx) 09/25/2024 10:30 AM CONTENT MANAGER Office Visit [facility] Cardiology [address] [address] [address] [place] [address] Qasim Ross MD H/O mechanical aortic valve replacement (Primary Dx) 09/25/2024 Orders Only [facility] Cardiology [address] [place] [address] [address] [place] [phone] Qasim Ross MD 09/25/2024 Telephone [facility] Cardiology [address] [place] [address] [address] [place] [phone] Qasim Ross MD 09/24/2024 Orders Only [facility] Surgery [address] [place] [address] [address] [place] [address] Cynthia Haley NP 09/21/2024 10:00 AM CONTENT MANAGER Home Care Visit [address] [place] [phone] Jaclyn Nava RN SN HOME VISIT 09/21/2024 Documentation [facility] Surgery [address] [place] [address] [address] [place] [address] Leeann Odom NP INR Management 09/18/2024 9:00 AM CONTENT MANAGER Home Care Visit [address] [place] [address] Jaclyn Nava RN SN HOME VISIT 09/18/2024 Documentation [facility] Surgery [address] [place] [address] [address] [place] [address] Leeann Odom NP 09/14/2024 11:10 AM CONTENT MANAGER - 09/14/2024 11:59 PM CONTENT MANAGER Hospital Encounter [address] [address] Discharge Disposition: Discharge to home or self care 09/14/2024 9:00 AM CONTENT MANAGER Home Care Visit [address] [place] [phone] Jess Aguirre RN SN HOME VISIT 09/14/2024 Anticoagulation Telephone Call [address] [place] [address] Joey Oconnor NP 09/14/2024 Documentation [facility] Surgery [address] [place] [address] [address] [place] [address] Cynthia Haley NP Anticoagulation 09/13/2024 5:00 PM CONTENT MANAGER Ancillary Procedure [facility] Medical Group Imaging at [address] [phone] Left shoulder pain, unspecified chronicity 09/13/2024 4:45 PM CONTENT MANAGER Ancillary Procedure [facility] Medical Group Imaging at [address] [phone] Aortic stenosis due to bicuspid aortic valve 09/13/2024 Orders Only [facility] Surgery [address] [place] [address] [place] [address] Cynthia Haley NP Aortic stenosis due to bicuspid aortic valve (Primary Dx); Left shoulder pain, unspecified chronicity 09/11/2024 11:00 AM CONTENT MANAGER Home Care Visit [address] [place] [phone] Kevin Glover RN SN NON OASIS START OF CARE 09/11/2024 [facility] Post Discharge Follow up phone call [address] [address] Shagufta Ureña RN 09/11/2024 Documentation [facility] Surgery [address] [place] [address] [address] [place] [phone] Cynthia Haley NP Anticoagulation 09/11/2024 Plan of Care Documentation [facility] [address] [facility] [address] [place] [address] 09/10/[address] [facility] Home Care Services [address] [place] [address] Naga Devi MA 09/10/2024 Orders Only [facility] Surgery [address] [place] [address] [address] [place] [address] Cynthia Haley NP 09/08/2024 Home Care Visit [address] [place] [address] Katy Clark RN SN TRIAGE ENCOUNTER 09/04/2024 7:35 AM CONTENT MANAGER Anesthesia Event [facility] Operating Room [address] [place] [address] Augie Gannon MD Ware, Melita C., NP 09/04/2024 7:30 AM CONTENT MANAGER - 09/04/2024 1:00 PM CONTENT MANAGER Surgery [facility] Operating Room [address] [place] [address] Talya Boucher MD REPLACEMENT AORTIC VALVE/270MIN 09/04/2024 5:32 AM CONTENT MANAGER - 09/08/2024 5:00 PM CONTENT MANAGER Hospital Encounter [facility] [id number] [place] [address] Talya Boucher MD Aortic stenosis, severe (Primary [...] (HCC) Anxiety Arthritis Depression Migraines Hypertension Stroke ([facility]) Kidney stone Menstrual problem Aortic stenosis 01/13/2023 [...] experiencing loneliness or isolatio n Never 09/11/2024 [facility] Utilities Answer Date Recorded In the [...] often do you attend chur ch or scientologist services? Never 09/06/2024 Do you belong to any clubs o r organizations such as gnosticist groups, unions, fraternal or athletic groups, or [...] any time in the past 12 m [facility], were you homeless or living in a residential (including now)? No 09/06/2024 Personal Safety Answer Date Recorded Have you ever been in or are you currently in a harmful physical or emotional relationship or is someone making you feel afraid or unsafe? Denies 09/04/2024 Comments Unknown Sex and Gender Information Value Date Recorded Sex Assigned at Not on file Legal Sex Female 2:03 AM CONTENT MANAGER Gender Identity Not on file Sexual Orientation Not on file Obstetrics History Last Filed Vital Signs Vital Sign Reading Time Taken Comments Blood Pressure 127/74 10/04/2024 2:21 PM CONTENT MANAGER Pulse 80 10/04/2024 2:21 PM CONTENT MANAGER Temperature 36.5 C (97.7 F) 09/26/2024 8:47 AM CONTENT MANAGER Respiratory Rate 14 10/04/2024 2:21 PM CONTENT MANAGER Oxygen Saturation 98% 10/04/2024 2:21 PM CONTENT MANAGER Inhaled Oxygen Concentration - - Weight 106.1 kg (234 lb) 10/04/2024 2:21 PM CONTENT MANAGER Height 162.6 cm (5' 4 ) 10/04/2024 2:21 PM CONTENT MANAGER Body Mass Index 40.17 10/04/2024 2:21 PM CONTENT MANAGER Plan of Treatment Health Maintenance Due [...] history exists Medical Devices Implanted Type Area Ceramic Mold Designer Device Identifier Shelf Expiration Date Model / Serial / Lot [employer] Plate Bone Low Profile 6 Hole H Shape Sternum Ti 115.102.06 - [id number] Implanted:Qt y: 1 on 09/04/2024 by Talya Boucher MD at [facility] Plate N/A: Sternum [employer] 115.102.0 6 / / [employer] Plate Bone Low Profile 4 Hole Box Sternum Ti 115.103.04 - [id number] Implanted:Qt y: 1 on 09/04/2024 by Talya Boucher MD at [facility] Plate N/A: Sternum [employer] 115.103.0 4 / / [employer] Plate Bone Low Profile 6 Hole O Shape Sternum Ti 115.104.06 - [id number] Implanted:Qt y: 1 on 09/04/2024 by Talya Boucher MD at [facility] Plate N/A: Sternum [employer] 115.104.0 6 / / [employer] Master-Serie s 23mm 18.6mm Cuff Leaflet Open Control Torque 23aj-501 - [id number] - [id number] Implanted:Qt y: 1 on 09/04/2024 by Talya Boucher MD at [facility] Prosthetic Valve N/A: Aortic Valve [employer] 02/26/2026 23AJ-501 / [id number] / 00 [employer] Screw Bone Slf Drl Full Thread Locking 3.5x14mm Ti 100.035.14 - [id number] Implanted:Qt y: 10 on 09/04/2024 by Talya Boucher MD at [facility] Screw N/A: Sternum [employer] 100.035.1 4 / / [employer] Screw Bone Slf Drl Full Thread Locking 3.5x16mm Ti 100.035.16 - [id number] Implanted:Qt y: 6 on 09/04/2024 by Talya Boucher MD at [facility] Screw N/A: Sternum [employer] 100.035.1 6 / / Procedures Procedure Name Priority Date/Time Associated Diagnosis Comments PROTIME-INR Routine 10/31/2024 6:06 AM CDT H/O heart valve replacement with mechanical valve PROTIME-INR Routine 10/03/2024 6:38 AM CONTENT MANAGER H/O heart valve replacement with mechanical valve POCT PROTHROMBIN TIME/INR Routine 09/26/2024 8:41 AM CONTENT MANAGER POCT PROTHROMBIN TIME/INR Routine 09/21/2024 10:24 AM CONTENT MANAGER POCT PROTHROMBIN TIME/INR Routine 09/18/2024 9:04 AM CONTENT MANAGER POCT PROTHROMBIN TIME/INR Routine 09/14/2024 11:31 AM CONTENT MANAGER EGFR Routine 09/14/2024 11:10 AM CONTENT MANAGER DIFFERENTIAL AUTO Routine 09/14/2024 11:10 AM CONTENT MANAGER CBC WITH AUTO DIFFERENTIAL Routine 09/14/2024 11:10 AM CONTENT MANAGER COMPREHENSIVE METABOLIC PANEL Routine 09/14/2024 11:10 AM CONTENT MANAGER XR SHOULDER LEFT 2 OR MORE VIEWS Schedule Routine, Read Routine (OP Routine) 09/13/2024 4:37 PM CONTENT MANAGER Left shoulder pain, unspecified chronicity XR CHEST PA LATERAL 2 VIEWS Schedule Routine, Read Routine (OP Routine) 09/13/2024 4:28 PM CONTENT MANAGER Aortic stenosis due to bicuspid aortic valve POCT PROTHROMBIN TIME/INR Routine 09/11/2024 11:59 AM CONTENT MANAGER TRANSTHORACIC ECHO (TTE) COMPLETE W DOPPLER/CF WO CONTRAST STAT 09/08/2024 5:45 PM CONTENT MANAGER XR CHEST 1 VIEW IP Routine 09/08/2024 6:17 AM CONTENT MANAGER EGFR Routine 09/08/2024 4:43 AM CONTENT MANAGER BASIC METABOLIC PANEL Routine 09/08/2024 4:43 AM CONTENT MANAGER CBC WITHOUT DIFFERENTIAL Routine 09/08/2024 4:43 AM CONTENT MANAGER PROTIME-INR Routine 09/08/2024 4:43 AM CONTENT MANAGER XR CHEST 1 VIEW IP Routine 09/07/2024 5:30 AM CONTENT MANAGER EGFR Routine 09/07/2024 4:49 AM CONTENT MANAGER BASIC METABOLIC PANEL Routine 09/07/2024 4:49 AM CONTENT MANAGER CBC WITHOUT DIFFERENTIAL Routine 09/07/2024 4:49 AM CONTENT MANAGER PROTIME-INR Routine 09/07/2024 4:49 AM CONTENT MANAGER APTT STAT 09/06/2024 2:10 PM CONTENT MANAGER PROTIME-INR STAT 09/06/2024 2:10 PM CONTENT MANAGER EGFR Timed 09/06/2024 12:52 PM CONTENT MANAGER MAGNESIUM Timed 09/06/2024 12:52 PM CONTENT MANAGER CALCIUM,IONIZED, WHOLE BLOOD Timed 09/06/2024 12:52 PM CONTENT MANAGER RENAL FUNCTION PANEL Timed 09/06/2024 12:52 PM CONTENT MANAGER POCT GLUCOSE DEVICE Routine 09/06/2024 11:55 AM CONTENT MANAGER POCT GLUCOSE DEVICE Routine 09/06/2024 7 :33 AM CONTENT MANAGER CRITICAL CARE Routine 09/06/2024 7:00 AM CONTENT MANAGER Aortic regurgitation due to bicuspid aortic valve XR CHEST 1 VIEW IP Routine 09/06/2024 5:34 AM CONTENT MANAGER EGFR Routine 09/06/2024 3:28 AM CONTENT MANAGER CBC WITHOUT DIFFERENTIAL Routine 09/06/2024 3:28 AM CONTENT MANAGER MAGNESIUM Routine 09/06/2024 3:28 AM CONTENT MANAGER BASIC METABOLIC PANEL Routine 09/06/2024 3:28 AM CONTENT MANAGER PHOSPHORUS Routine 09/06/2024 3:28 AM CONTENT MANAGER POCT GLUCOSE DEVICE Routine 09/05/2024 9 :00 PM CONTENT MANAGER POCT GLUCOSE DEVICE Routine 09/05/2024 5 :08 PM CONTENT MANAGER EGFR STAT 09/05/2024 3:29 PM CONTENT MANAGER MAGNESIUM STAT 09/05/2024 3:29 PM CONTENT MANAGER BASIC METABOLIC PANEL STAT 09/05/2024 3:29 PM CONTENT MANAGER CBC WITHOUT DIFFERENTIAL STAT 09/05/2024 3:29 PM CONTENT MANAGER CALCIUM,IONIZED, WHOLE BLOOD STAT 09/05/2024 3:25 PM CONTENT MANAGER POCT GLUCOSE DEVICE Routine 09/05/2024 12:46 PM CONTENT MANAGER ECG 12-LEAD STAT 09/05/2024 8:41 AM CONTENT MANAGER CBC WITHOUT DIFFERENTIAL STAT 09/05/2024 7:51 AM CONTENT MANAGER APTT STAT 09/05/2024 7:47 AM CONTENT MANAGER PROTIME-INR STAT 09/05/2024 7:47 AM CONTENT MANAGER CRITICAL CARE Routine 09/05/2024 7:05 AM CONTENT MANAGER Aortic regurgitation due to bicuspid aortic valve POCT GLUCOSE DEVICE Routine 09/05/2024 7 :05 AM CONTENT MANAGER XR CHEST 1 VIEW IP Routine 09/05/2024 5:47 AM CONTENT MANAGER T3, FREE Routine 09/05/2024 3:49 AM CONTENT MANAGER EGFR Routine 09/05/2024 3:49 AM CONTENT MANAGER T4, FREE Routine 09/05/2024 3:49 AM CONTENT MANAGER DIFFERENTIAL AUTO Routine 09/05/2024 3:4 9 AM CONTENT MANAGER HEMOGLOBIN A1C Routine 09/05/2024 3:49 AM CONTENT MANAGER THYROID FUNCTION CASCADE Routine 09/05/2024 3:49 AM CONTENT MANAGER LIPID PANEL Routine 09/05/2024 3:49 AM CONTENT MANAGER OXYHEMOGLOBIN, PULMONARY ARTERY Routine 09/05/2024 3:49 AM CONTENT MANAGER PHOSPHORUS Routine 09/05/2024 3:49 AM CONTENT MANAGER MAGNESIUM Routine 09/05/2024 3:49 AM CONTENT MANAGER BASIC METABOLIC PANEL Routine 09/05/2024 3:49 AM CONTENT MANAGER CBC WITH AUTO DIFFERENTIAL Routine 09/05/2024 3:49 AM CONTENT MANAGER POCT GLUCOSE DEVICE Routine 09/05/2024 2 :19 AM CONTENT MANAGER CRITICAL CARE Routine 09/04/2024 11:38 PM CONTENT MANAGER Aortic regurgitation due to bicuspid aortic valve POCT GLUCOSE DEVICE Routine 09/04/2024 9 :48 PM CONTENT MANAGER POCT GLUCOSE DEVICE Routine 09/04/2024 8 :41 PM CONTENT MANAGER POCT GLUCOSE DEVICE Routine 09/04/2024 7 :16 PM CONTENT MANAGER BLOOD GAS, ARTERIAL Timed 09/04/2024 6 :16 PM CONTENT MANAGER POCT GLUCOSE DEVICE Routine 09/04/2024 6 :13 PM CONTENT MANAGER EGFR STAT 09/04/2024 5:25 PM CONTENT MANAGER CALCIUM,IONIZED, WHOLE BLOOD STAT 09/04/2024 5:25 PM CONTENT MANAGER PHOSPHORUS STAT 09/04/2024 5:25 PM CONTENT MANAGER MAGNESIUM STAT 09/04/2024 5:25 PM CONTENT MANAGER BASIC METABOLIC PANEL STAT 09/04/2024 5:25 PM CONTENT MANAGER CBC WITHOUT DIFFERENTIAL Timed 09/04/2024 5:25 PM CONTENT MANAGER BLOOD GAS, ARTERIAL Timed 09/04/2024 5 :25 PM CONTENT MANAGER POCT GLUCOSE DEVICE Routine 09/04/2024 5 :06 PM CONTENT MANAGER POCT GLUCOSE DEVICE Routine 09/04/2024 3 :55 PM CONTENT MANAGER BLOOD CULTURE Routine 09/04/2024 3:42 PM CONTENT MANAGER BLOOD CULTURE Routine 09/04/2024 3:42 PM CONTENT MANAGER CALCIUM,IONIZED, WHOLE BLOOD STAT 09/04/2024 3:21 PM CONTENT MANAGER BLOOD GAS, ARTERIAL STAT 09/04/2024 3 :21 PM CONTENT MANAGER POCT GLUCOSE DEVICE Routine 09/04/2024 2 :48 PM CONTENT MANAGER POCT GLUCOSE DEVICE Routine 09/04/2024 1 :49 PM CONTENT MANAGER CRITICAL CARE Routine 09/04/2024 1:12 PM CONTENT MANAGER Aortic regurgitation due to bicuspid aortic valve XR CHEST 1 VIEW Critical/Life-T hreatening 09/04/2024 12:57 PM CONTENT MANAGER SURGICAL PATHOLOGY Routine 09/04/2024 12:35 PM CONTENT MANAGER Aortic valve stenosis, etiology of cardiac valve disease unspecified PHOSPHORUS Add-On 09/04/2024 12:27 PM CONTENT MANAGER MAGNESIUM Add-On 09/04/2024 12:27 PM CONTENT MANAGER EGFR STAT 09/04/2024 12:27 PM CONTENT MANAGER APTT STAT 09/04/2024 12:27 PM CONTENT MANAGER PROTIME-INR STAT 09/04/2024 12:27 PM CONTENT MANAGER CBC WITHOUT DIFFERENTIAL Timed 09/04/2024 12:27 PM CONTENT MANAGER BLOOD GAS, ARTERIAL Timed 09/04/2024 12:27 PM CONTENT MANAGER BASIC METABOLIC PANEL STAT 09/04/2024 12:27 PM CONTENT MANAGER PHOSPHORUS Add-On 09/04/2024 12:27 PM CONTENT MANAGER POCT GLUCOSE DEVICE Routine 09/04/2024 11:55 AM CONTENT MANAGER POC BLOOD GAS AND CHEMISTRIES, ARTERIAL Routine 09/04/2024 11:04 AM CONTENT MANAGER POCT ACTIVATED CLOTTING TIME, HIGH RANGE Routine 09/04/2024 11:00 AM CONTENT MANAGER POC BLOOD GAS AND CHEMISTRIES, ARTERIAL Routine 09/04/2024 10:20 AM CONTENT MANAGER POCT ACTIVATED CLOTTING TIME, HIGH RANGE Routine 09/04/2024 10:19 AM CONTENT MANAGER POC BLOOD GAS AND CHEMISTRIES, ARTERIAL Routine 09/04/2024 9:57 AM CONTENT MANAGER PLATELET COUNT STAT 09/04/2024 9:56 AM CONTENT MANAGER POC BLOOD GAS AND CHEMISTRIES, ARTERIAL Routine 09/04/2024 9:55 AM CONTENT MANAGER POCT ACTIVATED CLOTTING TIME, HIGH RANGE Routine 09/04/2024 9:54 AM CONTENT MANAGER POC BLOOD GAS AND CHEMISTRIES, ARTERIAL Routine 09/04/2024 9:19 AM CONTENT MANAGER POCT ACTIVATED CLOTTING TIME, HIGH RANGE Routine 09/04/2024 9:18 AM CONTENT MANAGER ANESTHESIA CENTRAL VENOUS LINE PLACEMENT Routine 09/04/2024 9:15 AM CONTENT MANAGER ANESTHESIA CENTRAL VENOUS LINE PLACEMENT Routine 09/04/2024 9:15 AM CONTENT MANAGER CO AN ELECTIVE ENDOTRACHEAL AIRWAY Routine 09/04/2024 9:14 AM CONTENT MANAGER ANESTHESIA ARTERIAL LINE PLACEMENT Routine 09/04/2024 9:13 AM CONTENT MANAGER POCT ACTIVATED CLOTTING TIME, HIGH RANGE Routine 09/04/2024 8:53 AM CONTENT MANAGER ANESTHESIA SCOTTY Routine 09/04/2024 8:28 AM CONTENT MANAGER POC BLOOD GAS AND CHEMISTRIES, ARTERIAL Routine 09/04/2024 8:21 AM CONTENT MANAGER POCT ACTIVATED CLOTTING TIME, HIGH RANGE Routine 09/04/2024 8:18 AM CONTENT MANAGER REPLACEMENT AORTIC VALVE 09/04/2024 7:35 AM CONTENT MANAGER Aortic valve stenosis, etiology of cardiac valve disease unspecified B CHECK SAMPLE STAT 09/04/2024 6:51 AM CONTENT MANAGER POCT HCG, URINE Routine 09/04/2024 6:30 AM CONTENT MANAGER PREPARE RBC STAT 09/04/2024 5:35 AM CONTENT MANAGER from Last 3 Months Results * (ABNORMAL) Protime-INR (10/31/2024 6:06 AM CDT) INR 3.4(H) [employer] Comment: Reference Range 0.9-1.1 Moderate-intensity Warfarin Therapy 2.0-3.0 Higher-intensity Warfarin Therapy 3.0-4.0 PT 33.8(H) 9.0 - 11.5 sec [employer] Comment: For additional information, please refer to http://education.Ingeny/faq/CDC124 (This link is being provided for informational/ educational purposes only.) Blood 10/31/2024 6:06 AM CDT 10/31/2024 6:06 AM CDT us Leeann Odom NP LAB BLOOD ORDERABLES Chloé bonilla Result [facility] [address] [place] [address] * (ABNORMAL) Protime-INR (10/03/2024 6:38 AM CONTENT MANAGER) INR 3.2(H) [employer] [facility] Comment: Reference Range 0.9-1.1 Moderate-intensity Warfarin Therapy 2.0-3.0 Higher-intensity Warfarin Therapy 3.0-4.0 PT 32.0(H) 9.0 - 11.5 sec [employer] [facility] Comment: For additional information, please refer to http://education.Ingeny/faq/IRK179 (This link is being provided for informational/ educational purposes only.) Blood 10/03/2024 6:38 AM CONTENT MANAGER 10/03/2024 6:39 AM CONTENT MANAGER Leeann Odom PROPERTY STAFF ACCOUNTANT LAB BLOOD ORDERABLES Chloé l Result Performing Organization Address [facility]/ZIP Co de Phone Number [facility] [address] [place] [address] * POCT PT/INR (09/26/2024 8:41 AM CONTENT MANAGER) INR, POC 3.30 HH [facility] Comment:repeat INR on 10/03 at [facility] in [place] Blood 09/26/2024 8:41 AM CONTENT MANAGER Cynthia Haley NP POINT OF CARE TEST ORDERAB LES Final Result Performing Organization Address City/[facility] Co de Phone Number [facility] * POCT PT/INR (09/21/2024 10:24 AM CONTENT MANAGER) INR, POC 3.80 HH PO[facility] RESULTING LAB[facility]AT[facility] Blood 09/21/2024 10:2 4 AM CONTENT MANAGER Talya Boucher MD POINT OF CARE TEST ORDERABLES Final Result Performing Organization Address City/[facility]/ZIP Co de Phone Number PO[facility] RESULTING [facility] * POCT PT/INR (09/18/2024 9:04 AM CONTENT MANAGER) INR, POC 3.10 HH POCT RESULTING LABORATORY Blood 09/18/2024 9:04 AM CONTENT MANAGER Cynthia Haley PROPERTY STAFF ACCOUNTANT POINT OF CARE TEST ORDERAB LES Final Result Performing Organization Address [facility] de Phone Number POCT RESULTING LABORATORY * POCT PT/INR (09/14/2024 11:31 AM CONTENT MANAGER) INR, POC 1.80 HH POCT RESULTING LABORATORY Blood 09/14/2024 11:3 1 AM CONTENT MANAGER Cynthia Haley PROPERTY STAFF ACCOUNTANT POINT OF CARE TEST ORDERAB LES Final Result Performing Organization Address [facility] Phone Number POCT RESULTING LABORATORY * eGFR (09/14/2024 11:10 AM CONTENT MANAGER) eGFR 70 >=60 mL/min/1. 73 m2 [...] reviewed 2021. Blood 09/14/2024 11:1 0 AM CONTENT MANAGER 09/14/2024 4:43 PM CONTENT MANAGER Cynthia Haley PROPERTY STAFF ACCOUNTANT LAB BLOOD ORDERABLES Final Result Performing Organization Address [facility]/State/ZIP Co de Phone Number [facility] Department [place] [address] * Differential, auto (09/14/2024 11:10 AM CONTENT MANAGER) Neutrophil abs 6.4 1.5 - 6.5 K/cumm Imm gran abs 0.1 0.0 - 0.1 K/cumm [facility] Lymphocyte abs 1.8 0.8 - 3.3 K/cumm [facility] Monocyte abs 0.6 0.2 - 0.8 K/cumm [facility] Eosinophil abs 0.0 0.0 - 0.5 K/cumm [facility] Basophil abs 0.1 0.0 - 0.1 K/cumm [facility] Neutrophil pct 71.4 % [facility] Comment: Interpretive Data Percent cell count reference ranges are not reported, since discordance with absolute values may lead to misinterpretation of CBC data. Current Interpretive Data was last revised on 2017. Imm gran pct 0.8 % [facility] Comment: Interpretive Data Percent cell count reference ranges are not reported, since discordance with absolute values may lead to misinterpretation of CBC data. Current Interpretive Data was last revised on 2017. Lymphocyte pct 19.7 % [facility] Comment: Interpretive Data Percent cell count reference ranges are not reported, since discordance with absolute values may lead to misinterpretation of CBC data. Current Interpretive Data was last revised on 2017. Monocyte pct 7.2 % [facility] Comment: Interpretive Data Percent cell count reference ranges are not reported, since discordance with absolute values may lead to misinterpretation of CBC data. Current Interpretive Data was last revised on 2017. Eosinophil pct 0.2 % [facility] Comment: Interpretive Data Percent cell count reference ranges are not reported, since discordance with absolute values may lead to misinterpretation of CBC data. Current Interpretive Data was last revised on 2017. Basophil pct 0.7 % [facility] Comment: Interpretive Data Percent cell count reference ranges are not reported, since discordance with absolute values may lead to misinterpretation of CBC data. Current Interpretive Data was last revised on 2017. Blood 09/14/2024 11:1 0 AM CONTENT MANAGER 09/14/2024 4:20 PM CONTENT MANAGER Cynthia Haley PROPERTY STAFF ACCOUNTANT LAB BLOOD ORDERABLES Final Result [facility] Department of [address] [place] [address] * CBC with auto differential (09/14/2024 11:10 AM CONTENT MANAGER) WBC 8.9 3.8 - 9.9 K/cumm Hgb 11.9 11.9 - 15.5 g/dL [facility] Hct 35.8 35.6 - 45.5 % [facility] Plt 393 150 - 400 K/cumm [facility] MPV 10.3 9.1 - 12.3 fL [facility] RBC 4.13 3.90 - 5.20 M/cumm [facility] MCV 86.7 81.3 - 96.4 fL [facility] MCH 28.8 27.1 - 33.3 pg [facility] MCHC 33.2 32.3 - 35.7 g/dL [facility] RDW CV 12.7 11.1 - 14.9 % [facility] RDW SD 39.7 35.7 - 48.1 fL [facility] NRBC abs 0.00 0.00 - 0.01 K/cumm [facility] Blood 09/14/2024 11:1 0 AM CONTENT MANAGER 09/14/2024 4:20 PM CONTENT MANAGER Cynthia Haley PROPERTY STAFF ACCOUNTANT LAB BLOOD ORDERABLES Final Result [facility] Department [place] [address] * Comprehensive metabolic panel (09/14/2024 11:10 AM CONTENT MANAGER) Sodium 140 135 - 145 mmol/L Potassium, pl 3.7 3.3 - 4.9 mmol/L [facility] Chloride 101 97 - 110 mmol/L [facility] CO2 28 22 - 32 mmol/L [facility] Anion gap 11 2 - 15 mmol/L [facility] BUN 14 6 - 25 mg/dL [facility] Creatinine 0.96 0.60 - 1.10 mg/dL [facility] Glucose 77 70 - 199 mg/dL [facility] Comment: Interpretive Data Fasting glucose [...] 2022. Calcium 9.0 8.5 - 10.3 mg/dL [facility] Bilirubin, total 0.2 0.1 - 1.2 mg/dL [facility] Protein, pl 6.8 6.5 - 8.5 g/dL [facility] Albumin 3.6 3.5 - 5.0 g/dL [facility] Alk phos 127 40 - 130 Units/L [facility] ALT 22 7 - 45 Units/L [facility] AST 20 10 - 45 Units/L [facility] Blood 09/14/2024 11:1 0 AM CONTENT MANAGER 09/14/2024 4:20 PM CONTENT MANAGER Cynthia Haley PROPERTY STAFF ACCOUNTANT LAB BLOOD ORDERABLES Final Result [facility] Department [place] [address] * XR Shoulder Left 2 or More Views (09/13/2024 4:37 PM CONTENT MANAGER) Anatomical Region Laterality Modality Upper Extremities, Shoulder Left [facility]i skylar Radiography 09/17/2024 12:0 3 AM CONTENT MANAGER Narrative 09/17/2024 12:23 AM CONTENT MANAGER EXAM DESCRIPTION: XR SHOULDER LEFT 2 [...] Desi Rand M.D. SN T: Report ID: [id number] Reading Location: [id number] Procedure Note Desi Rand MD - 09/17/2024 [...] Desi Rand M.D. SN T: Report ID: [id number] Reading Location: [id number] us Cynthia Haley PROPERTY STAFF ACCOUNTANT IMG XR PROCEDURES Final Re sult * X-ray chest 2 views (09/13/2024 4:28 PM CONTENT MANAGER) Anatomical Region Laterality Modality Body, Chest N/A Digital Radiogra phy 09/17/2024 12:0 0 AM CONTENT MANAGER Narrative 09/17/2024 12:01 AM CONTENT MANAGER EXAM DESCRIPTION: XR CHEST PA LATERAL [...] Desi Rand M.D. SN T: Report ID: [id number] Reading Location: [id number] Procedure Note Desi Rand MD - 09/17/2024 [...] Desi Rand M.D. SN T: Report ID: [id number] Reading Location: [id number] Cynthia Haley PROPERTY STAFF ACCOUNTANT IMG XR PROCEDURES Final Re sult * POCT PT/INR (09/11/2024 11:59 AM CONTENT MANAGER) INR, POC 1.60 [facility] RESULTING LAB[facility] Comment:PT TAKING ORDERED IN EVENING Blood 09/11/2024 11:5 9 AM CONTENT MANAGER Cynthia Haley NP POINT OF CARE TEST ORDERAB LES Final Result [facility] * TRANSTHORACIC ECHO (TTE) COMPLETE W DOPPLER/CF WO CONTRAST (09/08/2024 5:45 PM CONTENT MANAGER) LV EF % CONS SCIMAGE Anatomical Region Laterality Modality Ultrasound 09/08/2024 12:5 4 PM CONTENT MANAGER Narrative 09/08/2024 4:21 [place] [address] Echocardiogram Report Patient Name: ZURI ACEVES SUE : 1970 Study Date: 09/08/2024 12:54:21 PM Gender: F Tech: [place] Location: [id number] Ref Provider: TALYA BOUCHER Height(Cm): 163 BSA: [...] regurgitation. Electronically Signed By: Dr. Matilda Guo [facility] 09/08/2024 4:19:47 PM CONTENT MANAGER Procedure Note Matilda Guo MD - 09/08/2024 [place] [address] Echocardiogram Report Patient Name: ZURI ACEVES SUE : 1970 Study Date: 09/08/2024 12:54:21 PM Gender: F Tech: [place] Location: [place] [address] Ref Provider: TALYA BOUCHER Height(Cm): 163 BSA: [...] regurgitation. Electronically Signed By: Dr. Matilda Guo [facility] 09/08/2024 4:19:47 PM CONTENT MANAGER us Talya Boucher MD CV ECHO PROCEDURES Final Resul t * XR Chest 1 View - Portable - in AM (09/08/2024 6:17 AM CONTENT MANAGER) Anatomical Region Laterality Modality Body, Chest N/A Computed Radiogr aphy 09/08/2024 7:25 AM CONTENT MANAGER Impressions 09/08/2024 7:25 AM CONTENT MANAGER No change from previous. Electronically signed by: Gabriel Minaya M.D. Narrative 09/08/2024 7:25 AM CONTENT MANAGER EXAM: XR CHEST 1 VIEW DATE: [...] Final Result * eGFR (09/08/2024 4:43 AM CONTENT MANAGER) eGFR 85 >=60 mL/min/1. 73 m2 [...] last reviewed 2021. Blood 09/08/2024 4:43 AM CONTENT MANAGER 09/08/2024 4:43 AM CONTENT MANAGER Joey Oconnor PROPERTY STAFF ACCOUNTANT LAB BLOOD ORDERABLES Final Result Performing Organization Address [facility] de Phone Number [facility] [place] [address] [address] [facility] [address] [place] [address] * (ABNORMAL) Protime-INR (09/08/2024 4:43 AM CONTENT MANAGER) Pathologist [facility] PT 46.1(H) 9.7 - 13.0 sec INR 4.15(H) 0.90 - 1.20 [facility] Comment: Interpretive data Oral anticoagulant therapeutic ranges: Venous thromboembolism prophylaxis or treatment: 2.0-3.0 CARDIOLOGY Standard range: 2.0-3.0 High-intensity range: 2.5-3.5 Refer to indication-specific guidelines for appropriate target ranges for prosthetic heart valve replacement. Current interpretive data was last revised on 2019. Blood 09/08/2024 4:43 AM CONTENT MANAGER 09/08/2024 4:43 AM CONTENT MANAGER Joey Oconnor NP LAB BLOOD ORDERABLES Final Result Performing Organization Address [facility] de Phone Number NICOLE [address] [address] [facility] [address] [place] [address] * (ABNORMAL) CBC without differential (09/08/2024 4:43 AM CONTENT MANAGER) WBC 6.1 3.8 - 9.9 K/cumm Hgb 10.8(L) 11.9 - 15.5 g/dL [facility] Hct 33.2(L) 35.6 - 45.5 % [facility] Plt 166 150 - 400 K/cumm [facility] MPV 10.7 9.1 - 12.3 fL [facility] RBC 3.82(L) 3.90 - 5.20 M/cumm [facility] MCV 86.9 81.3 - 96.4 fL [facility] MCH 28.3 27.1 - 33.3 pg [facility] MCHC 32.5 32.3 - 35.7 g/dL [facility] RDW CV 12.4 11.1 - 14.9 % [facility] RDW SD 39.3 35.7 - 48.1 fL [facility] NRBC abs 0.00 0.00 - 0.01 K/cumm [facility] Blood 09/08/2024 4:43 AM CONTENT MANAGER 09/08/2024 4:43 AM CONTENT MANAGER Joey Oconnor NP LAB BLOOD ORDERABLES Final Result [facility] [address] [address] Department [place] [address] * Basic metabolic panel (09/08/2024 4:43 AM CONTENT MANAGER) Sodium 141 135 - 145 mmol/L Potassium, pl 3.4 3.3 - 4.9 mmol/L [facility] Chloride 106 97 - 110 mmol/L [facility] CO2 25 22 - 32 mmol/L [facility] Anion gap 10 2 - 15 mmol/L [facility] BUN 17 6 - 25 mg/dL [facility] Creatinine 0.82 0.60 - 1.10 mg/dL [facility] Glucose 91 70 - 199 mg/dL [facility] Comment: Interpretive Data Fasting [...] 2022. Calcium 8.5 8.5 - 10.3 mg/dL [facility] Blood 09/08/2024 4:43 AM CONTENT MANAGER 09/08/2024 4:43 AM CONTENT MANAGER us Joey Oconnor NP LAB BLOOD ORDERABLES Final Result NICOLE RAMOS [address] [address] Department [place] [address] * XR Chest 1 View - Portable - in AM (09/07/2024 5:30 AM CONTENT MANAGER) Anatomical Region Laterality Modality Body, Chest N/A Computed Radiogr aphy 09/07/2024 8:13 AM CONTENT MANAGER Impressions 09/07/2024 8:13 AM CONTENT MANAGER No failure or pneumothorax. Atelectasis left base. Electronically signed by: Dick Renteria M.D. Narrative 09/07/2024 8:13 AM CONTENT MANAGER EXAMINATION: XR CHEST 1 VIEW DATE: [...] Final Result * eGFR (09/07/2024 4:49 AM CONTENT MANAGER) eGFR 84 >=60 mL/min/1. 73 m2 [...] last reviewed 2021. Blood 09/07/2024 4:49 AM CONTENT MANAGER 09/07/2024 5:16 AM CONTENT MANAGER Joey Ocononr NP LAB BLOOD ORDERABLES Final Result Performing Organization Address [facility] de Phone Number NICOLE RAMOS [address] [address] [place] [address] * (ABNORMAL) Protime-INR (09/07/2024 4:49 AM CONTENT MANAGER) PT 36.1(H) 9.7 - 13.0 sec INR 3.26(H) 0.90 - 1.20 NICOLE RAMOS Comment: Interpretive data Oral anticoagulant therapeutic ranges: Venous thromboembolism prophylaxis or treatment: 2.0-3.0 CARDIOLOGY Standard range: 2.0-3.0 High-intensity range: 2.5-3.5 Refer to indication-specific guidelines for appropriate target ranges for prosthetic heart valve replacement. Current interpretive data was last revised on 2019. Blood 09/07/2024 4:49 AM CONTENT MANAGER 09/07/2024 5:17 AM CONTENT MANAGER Joey Oconnor NP LAB BLOOD ORDERABLES Final Result Performing Organization Address [facility] Co de Phone Number NICOLE RAMOS [address] [address] [place] [address] * (ABNORMAL) CBC without differential (09/07/2024 4:49 AM CONTENT MANAGER) Pathologist [facility] WBC 8.6 3.8 - 9.9 K/cumm Hgb 11.3(L) 11.9 - 15.5 g/dL [facility] Hct 35.2(L) 35.6 - 45.5 % [facility] Plt 116(L) 150 - 400 K/cumm [facility] Comment:No clot detected in sample. MPV 10.9 9.1 - 12.3 fL [facility] RBC 3.99 3.90 - 5.20 M/cumm [facility] MCV 88.2 81.3 - 96.4 fL [facility] MCH 28.3 27.1 - 33.3 pg [facility] MCHC 32.1(L) 32.3 - 35.7 g/dL [facility] RDW CV 12.5 11.1 - 14.9 % [facility] RDW SD 40.1 35.7 - 48.1 fL [facility] NRBC abs 0.00 0.00 - 0.01 K/cumm [facility] Blood 09/07/2024 4:49 AM CONTENT MANAGER 09/07/2024 5:17 AM CONTENT MANAGER Joey Oconnor NP LAB BLOOD ORDERABLES Final Result [facility] [address] [address] Department [place] [address] * Basic metabolic panel (09/07/2024 4:49 AM CONTENT MANAGER) [facility] Sodium 139 135 - 145 mmol/L Potassium, pl 3.8 3.3 - 4.9 mmol/L [facility] Chloride 105 97 - 110 mmol/L [facility] CO2 25 22 - 32 mmol/L [facility] Anion gap 9 2 - 15 mmol/L [facility] BUN 18 6 - 25 mg/dL [facility] Creatinine 0.83 0.60 - 1.10 mg/dL [facility] Glucose 104 70 - 199 mg/dL [facility] Comment: Interpretive Data Fasting [...] 10.3 mg/dL NICOLE Blood 09/07/2024 4:49 AM CONTENT MANAGER 09/07/2024 5:16 AM CONTENT MANAGER Joey Oconnor NP LAB BLOOD ORDERABLES Final Result Performing Organization Address [facility] Co de Phone Number [facility] [address] [place] [address] * (ABNORMAL) aPTT (09/06/2024 2:10 PM CONTENT MANAGER) aPTT 26(L) 28 - 38 sec Comment: Interpretive Data Heparin therapeutic range: 66.0 - 100.0 seconds. Range based on correlation with therapeutic heparin activity range of 0.3 - 0.7 Units/mL. Current interpretive data was last revised on 2023. Blood 09/06/2024 2:10 PM CONTENT MANAGER 09/06/2024 2:17 PM CONTENT MANAGER Narrative NICOLE - 09/06/2024 2:32 PM CONTENT MANAGER Baseline prior to enoxaparin initiation. Joey Oconnor NP LAB BLOOD ORDERABLES Final Result Performing Organization Address City/[facility]/ZIP Co de Phone Number [facility] [address] [place] [address] * (ABNORMAL) Protime-INR (09/06/2024 2:10 PM CONTENT MANAGER) PT 18.5(H) 9.7 - 13.0 sec INR 1.69(H) 0.90 - 1.20 NICOLE Comment: Interpretive data Oral anticoagulant therapeutic ranges: Venous thromboembolism prophylaxis or treatment: 2.0-3.0 CARDIOLOGY Standard range: 2.0-3.0 High-intensity range: 2.5-3.5 Refer to indication-specific guidelines for appropriate target ranges for prosthetic heart valve replacement. Current interpretive data was last revised on 2019. Blood 09/06/2024 2:10 PM CONTENT MANAGER 09/06/2024 2:17 PM CONTENT MANAGER Joey Oconnor PROPERTY STAFF ACCOUNTANT LAB BLOOD ORDERABLES Final Result [facility] [address] [address] Department [place] [address] * Calcium, ionized, whole blood (09/06/2024 12:52 PM CONTENT MANAGER) Ca, ionized, bld 4.86 4.50 - 5.10 mg/dL Blood 09/06/2024 12:5 2 PM CONTENT MANAGER 09/06/2024 1:06 PM CONTENT MANAGER Zoe Ureña PROPERTY STAFF ACCOUNTANT LAB BLOOD ORDERABLES F inal Result Performing Organization Address City/[facility]/ZIP Co de Phone Number [facility] [address] [place] [address] * eGFR (09/06/2024 12:52 PM CONTENT MANAGER) eGFR 89 >=60 mL/min/1. 73 m2 [...] reviewed 2021. Blood 09/06/2024 12:5 2 PM CONTENT MANAGER 09/06/2024 1:09 PM CONTENT MANAGER Zoe Ureña PROPERTY STAFF ACCOUNTANT LAB BLOOD ORDERABLES F inal Result Performing Organization Address City/[facility] Co de Phone Number NICOLE [address] [address] Department [employer] [place], [place] [id number] * Magnesium (09/06/2024 12:52 PM CONTENT MANAGER) Pathologist [facility] Magnesium 2.0 1.4 - 2.5 mg/dL Blood 09/06/2024 12:5 2 PM CONTENT MANAGER 09/06/2024 1:06 PM CONTENT MANAGER Zoe Ureña PROPERTY STAFF ACCOUNTANT LAB BLOOD ORDERABLES F inal Result Performing Organization Address [facility] de Phone Number NICOLE [address] [place] [address] * (ABNORMAL) Renal function panel (09/06/2024 12:52 PM CONTENT MANAGER) Sodium 140 135 - 145 mmol/L Potassium, pl 4.0 3.3 - 4.9 mmol/L [facility] Chloride 107 97 - 110 mmol/L [facility] CO2 27 22 - 32 mmol/L [facility] Anion gap 6 2 - 15 mmol/L [facility] BUN 17 6 - 25 mg/dL [facility] Creatinine 0.79 0.60 - 1.10 mg/dL [facility] Glucose 105 70 - 199 mg/dL [facility] Comment: Interpretive Data Fasting glucose >/= 126 [...] g/dL [facility] Blood 09/06/2024 12:5 2 PM CONTENT MANAGER 09/06/2024 1:06 PM CONTENT MANAGER Zoe Ureña NP LAB BLOOD ORDERABLES F inal Result Performing Organization Address [facility] Co de Phone Number NICOLE RAMOS [address] [address] Department [address] [place] [address] * POCT glucose (09/06/2024 11:55 AM CONTENT MANAGER) Glucose, POC 101 70 - 199 mg/dL Blood 09/06/2024 11:5 5 AM CONTENT MANAGER 09/06/2024 11:55 AM CONTENT MANAGER Result [facility] Talya Boucher MD LAB POCT ORDERABLES - DEVICE F inal Result Performing Organization Address [facility] Co de Phone Number [facility] [address] [address] Department [address] [place] [address] * POCT glucose (09/06/2024 7:33 AM CONTENT MANAGER) Glucose, POC 106 70 - 199 mg/dL Blood 09/06/2024 7:33 AM CONTENT MANAGER 09/06/2024 7:33 AM CONTENT MANAGER Talya Boucher MD LAB POCT ORDERABLES - DEVICE F inal Result Performing Organization Address [facility] Co de Phone Number [facility] [address] [address] Department [address] [place] [address] * Critical Care (09/06/2024 7:00 AM CONTENT MANAGER) Narrative Lenin Huff MD - 09/06/2024 7:00 AM CONTENT MANAGER Zoe Ureña NP 09/06/2024 3:56 PM [...] plan with the ICU team and other medical/groundwater consultant staff, making frequent assessments and decisions [...] Portable - in AM (09/06/2024 5:34 AM CONTENT MANAGER) Anatomical Region Laterality Modality Body, Chest N/A Computed Radiogr aphy 09/06/2024 8:19 AM CONTENT MANAGER Impressions 09/06/2024 8:19 AM CONTENT MANAGER Improvement. Some residual atelectasis fluid left base. Electronically signed by: Dick Renteria M.D. Narrative 09/06/2024 8:19 AM CONTENT MANAGER EXAMINATION: XR CHEST 1 VIEW DATE: [...] Final Result * eGFR (09/06/2024 3:28 AM CONTENT MANAGER) eGFR >90 >=60 mL/min/1. 73 m2 [...] last reviewed 2021. Blood 09/06/2024 3:28 AM CONTENT MANAGER 09/06/2024 3:40 AM CONTENT MANAGER Talya Boucher MD LAB BLOOD ORDERABLES Final Res ult Performing Organization Address City/[facility] Co de Phone Number NICOLE RAMOS [address] [address] Department of [address] [place], [place] [id number] * (ABNORMAL) CBC without differential (09/06/2024 3:28 AM CONTENT MANAGER) WBC 10.1(H) 3.8 - 9.9 K/cumm Hgb 10.9(L) 11.9 - 15.5 g/dL [facility] Hct 33.6(L) 35.6 - 45.5 % [facility] Plt 88(L) 150 - 400 K/cumm [facility] MPV 10.6 9.1 - 12.3 fL [facility] RBC 3.85(L) 3.90 - 5.20 M/cumm [facility] MCV 87.3 81.3 - 96.4 fL [facility] MCH 28.3 27.1 - 33.3 pg [facility] MCHC 32.4 32.3 - 35.7 g/dL [facility] RDW CV 12.6 11.1 - 14.9 % [facility] CH RDW SD 40.2 35.7 - 48.1 fL [facility] NRBC abs 0.00 0.00 - 0.01 K/cumm [facility] Blood 09/06/2024 3:28 AM CONTENT MANAGER 09/06/2024 3:40 AM CONTENT MANAGER Talya Boucher MD LAB BLOOD ORDERABLES Final Res ult NICOLE RAMOS [address] [address] Department of [address] [place], [place] [id number] * Phosphorus (09/06/2024 3:28 AM CONTENT MANAGER) Phosphorus, pl 2.5 2.3 - 4.5 mg/dL Blood 09/06/2024 3:28 AM CONTENT MANAGER 09/06/2024 3:37 AM CONTENT MANAGER Jessica Martinez PROPERTY STAFF ACCOUNTANT LAB BLOOD ORDERABLES Fin al Result Performing Organization Address City/[facility]/ZIP Co de Phone Number NICOLE RAMOS [address] [address] [facility] [address] [place] [address] * Magnesium (09/06/2024 3:28 AM CONTENT MANAGER) Magnesium 2.1 1.4 - 2.5 mg/dL Blood 09/06/2024 3:28 AM CONTENT MANAGER 09/06/2024 3:37 AM CONTENT MANAGER us Talya Boucher MD LAB BLOOD ORDERABLES Final Res ult Performing Organization Address [facility] Co de Phone Number NICOEL [address] [address] [facility] [address] [place] [address] * Basic metabolic panel (09/06/2024 3:28 AM CONTENT MANAGER) Sodium 140 135 - 145 mmol/L Potassium, pl 4.0 3.3 - 4.9 mmol/L [facility] Chloride 107 97 - 110 mmol/L [facility] CO2 24 22 - 32 mmol/L [facility] Anion gap 9 2 - 15 mmol/L [facility] BUN 14 6 - 25 mg/dL [facility] Creatinine 0.74 0.60 - 1.10 mg/dL [facility] Glucose 120 70 - 199 mg/dL [facility] Comment: Interpretive Data Fasting [...] 10.3 mg/dL [facility] Blood 09/06/2024 3:28 AM CONTENT MANAGER 09/06/2024 3:37 AM CONTENT MANAGER us Talya Boucher MD LAB BLOOD ORDERABLES Final Res ult Performing Organization Address [facility] Co de Phone Number NICOLE RAMOS [address] [address] [facility] [address] [place], [place] [id number] * POCT glucose (09/05/2024 9:00 PM CONTENT MANAGER) Glucose, POC 120 70 - 199 mg/dL Blood 09/05/2024 9:00 PM CONTENT MANAGER 09/05/2024 9:00 PM CONTENT MANAGER Talya Boucher MD LAB POCT ORDERABLES - DEVICE F inal Result Performing Organization Address [facility] Co de Phone Number NICOLE RAMOS [address] [address] [facility] [address] [place] [address] * POCT glucose (09/05/2024 5:08 PM CONTENT MANAGER) Glucose, POC 126 70 - 199 mg/dL Blood 09/05/2024 5:08 PM CONTENT MANAGER 09/05/2024 5:08 PM CONTENT MANAGER Talya Boucher MD LAB POCT ORDERABLES - DEVICE F inal Result Performing Organization Address [facility] Co de Phone Number NICOLE RAMOS [address] [address] [facility] [address] [place] [address] * eGFR (09/05/2024 3:29 PM CONTENT MANAGER) eGFR >90 >=60 mL/min/1. 73 m2 [...] last reviewed 2021. Blood 09/05/2024 3:29 PM CONTENT MANAGER 09/05/2024 3:30 PM CONTENT MANAGER Talya Boucher MD LAB BLOOD ORDERABLES Final Res ult Performing Organization Address City/[facility]/ZIP Co de Phone Number NICOLE [phone] [place] [address] * (ABNORMAL) CBC without differential (09/05/2024 3:29 PM CONTENT MANAGER) WBC 12.7(H) 3.8 - 9.9 K/cumm [...] K/cumm [facility] Blood 09/05/2024 3:29 PM CONTENT MANAGER 09/05/2024 3:30 PM CONTENT MANAGER Talya Boucher MD LAB BLOOD ORDERABLES Final Res ult Performing Organization Address City/[facility]/ZIP Co de Phone Number NICOLE RAMOS [address] [address] Department [place] [address] * Magnesium (09/05/2024 3:29 PM CONTENT MANAGER) Pathologist [facility] Magnesium 2.1 1.4 - 2.5 mg/dL Blood 09/05/2024 3:29 PM CONTENT MANAGER 09/05/2024 3:30 PM CONTENT MANAGER Talya Boucher MD LAB BLOOD ORDERABLES Final Res ult Performing Organization Address [facility] de Phone Number [facility] [address] [address] Department [place] [address] * Basic metabolic panel (09/05/2024 3:29 PM CONTENT MANAGER) Pathologist [facility] Sodium 138 135 - 145 mmol/L Potassium, pl 4.0 3.3 - 4.9 mmol/L [facility] Chloride 105 97 - 110 mmol/L [facility] CO2 24 22 - 32 mmol/L [facility] Anion gap 9 2 - 15 mmol/L [facility] BUN 10 6 - 25 mg/dL [facility] Creatinine 0.76 0.60 - 1.10 mg/dL [facility] Glucose 140 70 - 199 mg/dL [facility] Comment: Interpretive Data Fasting [...] 2022. Calcium 8.5 8.5 - 10.3 mg/dL [facility] Blood 09/05/2024 3:29 PM CONTENT MANAGER 09/05/2024 3:30 PM CONTENT MANAGER Talya Boucher MD LAB BLOOD ORDERABLES Final Res ult Performing Organization Address [facility]/ZIP Co de Phone Number [facility] [id number] [address] [facility] [address] [place] [address] * Calcium, ionized, whole blood (09/05/2024 3:25 PM CONTENT MANAGER) Ca, ionized, bld 4.65 4.50 - 5.10 mg/dL Blood 09/05/2024 3:25 PM CONTENT MANAGER 09/05/2024 3:29 PM CONTENT MANAGER Talya Boucher MD LAB BLOOD ORDERABLES Final Res ult Performing Organization Address [facility] Phone Number [place]ICOLE [phone] [address] Department [place] [address] * POCT glucose (09/05/2024 12:46 PM CONTENT MANAGER) Glucose, POC 134 70 - 199 mg/dL Blood 09/05/2024 12:4 6 PM CONTENT MANAGER 09/05/2024 12:46 PM CONTENT MANAGER Talya Boucher MD LAB POCT ORDERABLES - DEVICE F inal Result Performing Organization Address [facility] Phone Number NICOLE [address] [address] [facility] [address] [place] [address] * ECG 12 lead (09/05/2024 8:41 AM CONTENT MANAGER) 09/05/2024 8:41 AM CONTENT MANAGER Narrative [facility] - 09/05/2024 11:12 AM CONTENT MANAGER Vent Rate: 96 bpm RR Interval: 624 msec CO Interval: 135 msec QRS Duration: 83 msec QT Interval: 368 msec QTC Interval: 421 msec P-R-T Strawn: 7 - 1 - 10 degrees IMPRESSION: SINUS RHYTHM POSSIBLE INFERIOR MYOCARDIAL INFARCTION , PROBABLY OLD [30 ms Q WAVE IN II/aVF] BORDERLINE ECG Electronically Signed By: Dr. Matilda Guo [facility] Talya Boucher MD ECG ORDERABLES Final Result Performing Organization Address [facility]/ZIP Co de Phone Number [facility] * (ABNORMAL) CBC without differential (09/05/2024 7:51 AM CONTENT MANAGER) WBC 11.7(H) 3.8 - 9.9 K/cumm Hgb 11.5(L) 11.9 - 15.5 g/dL [facility] Hct 35.4(L) 35.6 - 45.5 % [facility] Plt 104(L) 150 - 400 K/cumm [facility] MPV 11.1 9.1 - 12.3 fL [facility] RBC 4.03 3.90 - 5.20 M/cumm [facility] MCV 87.8 81.3 - 96.4 fL [facility] MCH 28.5 27.1 - 33.3 pg [facility] MCHC 32.5 32.3 - 35.7 g/dL [facility] RDW CV 12.8 11.1 - 14.9 % [facility] RDW SD 41.6 35.7 - 48.1 fL [facility] NRBC abs 0.00 0.00 - 0.01 K/cumm [facility] Blood 09/05/2024 7:51 AM CONTENT MANAGER 09/05/2024 8:02 AM CONTENT MANAGER Narrative [facility] - 09/05/2024 8:40 AM CONTENT MANAGER Baseline prior to warfarin initiation. Talya Boucher MD LAB BLOOD ORDERABLES Final Res ult [facility] [address] [address] Department [place] [address] * (ABNORMAL) aPTT (09/05/2024 7:47 AM CONTENT MANAGER) aPTT 27(L) 28 - 38 sec Comment: Interpretive Data Heparin therapeutic range: 66.0 - 100.0 seconds. Range based on correlation with therapeutic heparin activity range of 0.3 - 0.7 Units/mL. Current interpretive data was last revised on 2023. Blood 09/05/2024 7:47 AM CONTENT MANAGER 09/05/2024 8:02 AM CONTENT MANAGER Narrative [facility] - 09/05/2024 8:48 AM CONTENT MANAGER Baseline prior to warfarin initiation. Talya Boucher MD LAB BLOOD ORDERABLES Final Res ult Performing Organization Address [facility] de Phone Number [facility] [address] [address] [facility] [address] [place] [address] * Protime-INR (09/05/2024 7:47 AM CONTENT MANAGER) PT 11.2 9.7 - 13.0 sec INR 1.04 0.90 - 1.20 [facility] Comment: Interpretive data Oral anticoagulant therapeutic ranges: Venous thromboembolism prophylaxis or treatment: 2.0-3.0 CARDIOLOGY Standard range: 2.0-3.0 High-intensity range: 2.5-3.5 Refer to indication-specific guidelines for appropriate target ranges for prosthetic heart valve replacement. Current interpretive data was last revised on 2019. Blood 09/05/2024 7:47 AM CONTENT MANAGER 09/05/2024 8:02 AM CONTENT MANAGER Narrative [facility] - 09/05/2024 8:45 AM CONTENT MANAGER Baseline prior to warfarin initiation. Talya Boucher MD LAB BLOOD ORDERABLES Final Res t Performing Organization Address [facility] de Phone Number [facility] [address] [address] [facility] [address] [place] [address] * Critical Care (09/05/2024 7:05 AM CONTENT MANAGER) Narrative Lenin Huff MD - 09/05/2024 7:05 AM CONTENT MANAGER Jessica Martinez NP 09/05/2024 7:30 AM [...] plan with the ICU team and other medical/groundwater consultant staff, making frequent assessments and decisions [...] in the medical record us Jessica Martinez PROPERTY STAFF ACCOUNTANT IN CLINIC/BEDSIDE ORDERA BLES Final Result * POCT glucose (09/05/2024 7:05 AM CONTENT MANAGER) Glucose, POC 146 70 - 199 mg/dL Blood 09/05/2024 7:05 AM CONTENT MANAGER 09/05/2024 7:05 AM CONTENT MANAGER Talya Boucher MD LAB POCT ORDERABLES - DEVICE F inal Result [facility] [address] [address] Department [place] [address] * XR Chest 1 View - Portable - in AM (09/05/2024 5:47 AM CONTENT MANAGER) Anatomical Region Laterality Modality Body, Chest N/A Computed Radiogr aphy 09/05/2024 8:37 AM CONTENT MANAGER Impressions 09/05/2024 8:37 AM CONTENT MANAGER Improvement in the left perihilar infiltrate. Residual fluid and atelectasis left base. Extubation.. Electronically signed by: Dick Renteria M.D. Narrative 09/05/2024 8:37 AM CONTENT MANAGER EXAMINATION: XR CHEST 1 VIEW DATE: [...] * Oxyhemoglobin, pulmonary artery (09/05/2024 3:49 AM CONTENT MANAGER) Oxyhemoglobin, PA 70.1 % Comment: Interpretive Data No reference range established. Current interpretive data was last revised 2019. Blood 09/05/2024 3:49 AM CONTENT MANAGER 09/05/2024 4:00 AM CONTENT MANAGER Jessica Martinez NP LAB BLOOD ORDERABLES [facility] al Result [facility] [address] [address] Department of Laboratories [place], [place] [id number] * eGFR (09/05/2024 3:49 AM CONTENT MANAGER) eGFR 80 >=60 mL/min/1. 73 m2 [...] last reviewed 2021. Blood 09/05/2024 3:49 AM CONTENT MANAGER 09/05/2024 4:02 AM CONTENT MANAGER us Talya Boucher MD LAB BLOOD ORDERABLES Final Res ult [facility] [address] [address] Department [place] [address] * (ABNORMAL) Differential, auto (09/05/2024 3:49 AM CONTENT MANAGER) Neutrophil abs 8.8(H) 1.5 - 6.5 K/cumm Imm gran abs 0.1 0.0 - 0.1 K/cumm [facility] Lymphocyte abs 1.0 0.8 - 3.3 K/cumm [facility] Monocyte abs 0.9(H) 0.2 - 0.8 K/cumm [facility] Eosinophil abs 0.0 0.0 - 0.5 K/cumm [facility] Basophil abs 0.0 0.0 - 0.1 K/cumm [facility] Neutrophil pct 81.4 % [facility] Comment: Interpretive Data Percent cell count reference ranges are not reported, since discordance with absolute values may lead to misinterpretation of CBC data. Current Interpretive Data was last revised on 2017. Imm gran pct 0.6 % [facility] Comment: Interpretive Data Percent cell count reference ranges are not reported, since discordance with absolute values may lead to misinterpretation of CBC data. Current Interpretive Data was last revised on 2017. Lymphocyte pct 9.2 % [facility] Comment: Interpretive Data Percent cell count reference ranges are not reported, since discordance with absolute values may lead to misinterpretation of CBC data. Current Interpretive Data was last revised on 2017. Monocyte pct 8.6 % [facility] Comment: Interpretive Data Percent cell count reference ranges are not reported, since discordance with absolute values may lead to misinterpretation of CBC data. Current Interpretive Data was last revised on 2017. Eosinophil pct 0.0 % [facility] Comment: Interpretive Data Percent cell count reference ranges are not reported, since discordance with absolute values may lead to misinterpretation of CBC data. Current Interpretive Data was last revised on 2017. Basophil pct 0.2 % [facility] Comment: Interpretive Data Percent cell count reference ranges are not reported, since discordance with absolute values may lead to misinterpretation of CBC data. Current Interpretive Data was last revised on 2017. Blood 09/05/2024 3:49 AM CONTENT MANAGER 09/05/2024 4:02 AM CONTENT MANAGER Talya Boucher MD LAB BLOOD ORDERABLES Final Res ult Performing Organization Address [facility] Co de Phone Number NICOLE RAMOS [phone] [address] Department of Laboratories [place], [place] [id number] * (ABNORMAL) Thyroid Function [place] (09/05/2024 3:49 AM CONTENT MANAGER) TSH 0.21(L) 0.30 - 4.20 mcIUnit/mL Blood 09/05/2024 3:49 AM CONTENT MANAGER 09/05/2024 4:02 AM CONTENT MANAGER Jessica Martinez NP LAB BLOOD ORDERABLES Fin al Result Performing Organization Address [facility] Co de Phone Number NICOLE RAMOS [address] [address] Department [place] [address] * (ABNORMAL) CBC with auto differential (09/05/2024 3:49 AM CONTENT MANAGER) WBC 10.8(H) 3.8 - 9.9 K/cumm Hgb 11.7(L) 11.9 - 15.5 g/dL [facility] Hct 35.9 35.6 - 45.5 % [facility] Plt 101(L) 150 - 400 K/cumm [facility] MPV 10.5 9.1 - 12.3 fL [facility] RBC 4.10 3.90 - 5.20 M/cumm [facility] MCV 87.6 81.3 - 96.4 fL [facility] MCH 28.5 27.1 - 33.3 pg [facility] MCHC 32.6 32.3 - 35.7 g/dL [facility] RDW CV 12.7 11.1 - 14.9 % [facility] RDW SD 40.8 35.7 - 48.1 fL [facility] NRBC abs 0.00 0.00 - 0.01 K/cumm [facility] Blood 09/05/2024 3:49 AM CONTENT MANAGER 09/05/2024 4:02 AM CONTENT MANAGER Talya Boucher MD LAB BLOOD ORDERABLES Final Res ult Performing Organization Address [facility] de Phone Number NICOLE [address] [address] [facility] [address] [place] [address] * T3, free (09/05/2024 3:49 AM CONTENT MANAGER) Free T3 3.0 2.0 - 4.4 pg/mL Blood 09/05/2024 3:49 AM CONTENT MANAGER 09/05/2024 4:02 AM CONTENT MANAGER Narrative [facility] - 09/05/2024 12:49 PM CONTENT MANAGER This test was reflexed from a Free T4 result. Jessica Martinez NP LAB BLOOD ORDERABLES Fin al Result Performing Organization Address [facility] de Phone Number [facility] [address] [address] [facility] [address] [place] [address] * T4, free (09/05/2024 3:49 AM CONTENT MANAGER) Free T4 1.07 0.90 - 1.70 ng/dL Blood 09/05/2024 3:49 AM CONTENT MANAGER 09/05/2024 4:02 AM CONTENT MANAGER Jessica Martinez NP LAB BLOOD ORDERABLES Fin al Result Performing Organization Address [facility] de Phone Number [facility] [address] [place] [address] * Phosphorus (09/05/2024 3:49 AM CONTENT MANAGER) Phosphorus, pl 4.0 2.3 - 4.5 mg/dL Blood 09/05/2024 3:49 AM CONTENT MANAGER 09/05/2024 4:02 AM CONTENT MANAGER Jessica Martinez PROPERTY STAFF ACCOUNTANT LAB BLOOD ORDERABLES Fin al Result Performing Organization Address [facility] de Phone Number [facility] [address] [address] [facility] [address] [place] [address] * Magnesium (09/05/2024 3:49 AM CONTENT MANAGER) Pathologist [facility] Magnesium 2.3 1.4 - 2.5 mg/dL Blood 09/05/2024 3:49 AM CONTENT MANAGER 09/05/2024 4:02 AM CONTENT MANAGER Talya Boucher MD LAB BLOOD ORDERABLES Final Res ult Performing Organization Address [facility] Phone Number [facility] [address] [place] [address] * Hemoglobin A1c (09/05/2024 3:49 AM CONTENT MANAGER) Hgb A1C 5.3 4.0 - 5.6 % Estimated Average Glucose 105 mg/dL NICOLE Comment: The ADA recommends reporting an estimated Average Glucose (eAG) with all Hemoglobin A1c results using the equation derived from a study of 507 normal and diabetic adults. Minority populations were underrepresented and children were not included. (Diabetes Care 31:1886-2411, 2008). The eAG is not equivalent to a fasting glucose. Blood 09/05/2024 3:49 AM CONTENT MANAGER 09/05/2024 4:02 AM CONTENT MANAGER Jessica Martinez PROPERTY STAFF ACCOUNTANT LAB BLOOD ORDERABLES Fin al Result Performing Organization Address [facility]/State/ZIP Co de Phone Number NICOLE [address] [facility] Department [place] [address] * Lipid panel (09/05/2024 3:49 AM CONTENT MANAGER) Cholesterol 90 30 - 199 mg/dL [...] 2 NICOLE RAMOS Blood 09/05/2024 3:49 AM CONTENT MANAGER 09/05/2024 4:02 AM CONTENT MANAGER us Jessica Martinez NP LAB BLOOD ORDERABLES Fin al Result NICOLE RAMOS [address] [address] Department [place] [address] * (ABNORMAL) Basic metabolic panel (09/05/2024 3:49 AM CONTENT MANAGER) Sodium 143 135 - 145 mmol/L Potassium, pl 4.8 3.3 - 4.9 mmol/L [facility] Chloride 111(H) 97 - 110 mmol/L [facility] CO2 22 22 - 32 mmol/L [facility] Anion gap 10 2 - 15 mmol/L [facility] BUN 12 6 - 25 mg/dL [facility] Creatinine 0.86 0.60 - 1.10 mg/dL [facility] Glucose 134 70 - 199 mg/dL [facility] Comment: Interpretive Data Fasting [...] 2022. Calcium 8.3(L) 8.5 - 10.3 mg/dL [facility] Blood 09/05/2024 3:49 AM CONTENT MANAGER 09/05/2024 4:02 AM CONTENT MANAGER Talya Boucher MD LAB BLOOD ORDERABLES Final Res ult Performing Organization Address [facility] Co de Phone Number [facility] [address] [address] Department of [address] [place] [address] * POCT glucose (09/05/2024 2:19 AM CONTENT MANAGER) [facility] Glucose, POC 132 70 - 199 mg/dL Blood 09/05/2024 2:19 AM CONTENT MANAGER 09/05/2024 2:19 AM CONTENT MANAGER Talya Boucher MD LAB POCT ORDERABLES - DEVICE F inal Result Performing Organization Address [facility] Co de Phone Number [facility] [address] [address] Department [place] [address] * Critical Care (09/04/2024 11:38 PM CONTENT MANAGER) Narrative Cullen Lezama MD - 09/04/2024 11:38 PM CONTENT MANAGER Fito Nation PA 09/05/2024 2:57 AM [...] plan with the ICU team and other medical/groundwater consultant staff, making frequent assessments and decisions [...] Result * POCT glucose (09/04/2024 9:48 PM CONTENT MANAGER) Glucose, POC 123 70 - 199 mg/dL Blood 09/04/2024 9:48 PM CONTENT MANAGER 09/04/2024 9:48 PM CONTENT MANAGER Talya Boucher MD LAB POCT ORDERABLES - DEVICE F inal Result [facility] [address] [address] Department [place] [address] * POCT glucose (09/04/2024 8:41 PM CONTENT MANAGER) Glucose, POC 131 70 - 199 mg/dL Blood 09/04/2024 8:41 PM CONTENT MANAGER 09/04/2024 8:41 PM CONTENT MANAGER Talya Boucher MD LAB POCT ORDERABLES - DEVICE F inal Result Performing Organization Address City/[facility]/ZIP Co de Phone Number NICOLE RAMOS [address] [address] [facility] [address] [place] [address] * POCT glucose (09/04/2024 7:16 PM CONTENT MANAGER) Glucose, POC 125 70 - 199 mg/dL Blood 09/04/2024 7:16 PM CONTENT MANAGER 09/04/2024 7:16 PM CONTENT MANAGER Talya Boucher MD LAB POCT ORDERABLES - DEVICE F inal Result Performing Organization Address [facility] de Phone Number NICOLE RAMOS [address] [address] [facility] [address] [place] [address] * (ABNORMAL) Blood gas, arterial (09/04/2024 6:16 PM CONTENT MANAGER) pH, Art 7.34(L) 7.35 - 7.45 [...] % [facility] Blood 09/04/2024 6:16 PM CONTENT MANAGER 09/04/2024 6:23 PM CONTENT MANAGER Talya Boucher MD LAB BLOOD ORDERABLES Final Res ult Performing Organization Address [facility]/ZIP Co de Phone Number NICOLE RAMOS [address] [address] [facility] [address] [place], [place] [id number] * POCT glucose (09/04/2024 6:13 PM CONTENT MANAGER) Glucose, POC 112 70 - 199 mg/dL Blood 09/04/2024 6:13 PM CONTENT MANAGER 09/04/2024 6:13 PM CONTENT MANAGER Talya Boucher MD LAB POCT ORDERABLES - DEVICE F inal Result Performing Organization Address City/[facility]/ZIP Co de Phone Number NICOLE RAMOS [address] [address] [place] [address] * Calcium, ionized, whole blood (09/04/2024 5:25 PM CONTENT MANAGER) Ca, ionized, bld 4.67 4.50 - 5.10 mg/dL Blood 09/04/2024 5:25 PM CONTENT MANAGER 09/04/2024 5:40 PM CONTENT MANAGER Talya Boucher MD LAB BLOOD ORDERABLES Final Res ult Performing Organization Address [facility] Co de Phone Number NICOLE RAMOS [address] [address] Department of [address] [place] [address] * eGFR (09/04/2024 5:25 PM CONTENT MANAGER) eGFR 73 >=60 mL/min/1. 73 m2 [...] last reviewed 2021. Blood 09/04/2024 5:25 PM CONTENT MANAGER 09/04/2024 5:43 PM CONTENT MANAGER Talya Boucher MD LAB BLOOD ORDERABLES Final Res ult Performing Organization Address City/[facility]/ZIP Co de Phone Number NICOLE RAMOS [address] [address] Department of [address] [place], [place] [id number] * (ABNORMAL) CBC without differential (09/04/2024 5:25 PM CONTENT MANAGER) WBC 14.8(H) 3.8 - 9.9 K/cumm Hgb 11.7(L) 11.9 - 15.5 g/dL [facility] Hct 35.3(L) 35.6 - 45.5 % [facility] Plt 107(L) 150 - 400 K/cumm [facility] MPV 10.8 9.1 - 12.3 fL [facility] RBC 4.16 3.90 - 5.20 M/cumm [facility] MCV 84.9 81.3 - 96.4 fL [facility] MCH 28.1 27.1 - 33.3 pg [facility] MCHC 33.1 32.3 - 35.7 g/dL [facility] RDW CV 12.4 11.1 - 14.9 % [facility] RDW SD 38.2 35.7 - 48.1 fL [facility] NRBC abs 0.00 0.00 - 0.01 K/cumm [facility] Blood 09/04/2024 5:25 PM CONTENT MANAGER 09/04/2024 5:43 PM CONTENT MANAGER Talya Boucher MD LAB BLOOD ORDERABLES Final Res ult NICOLE RAMOS [address] [address] Department of [address] [place], [place] [id number] * (ABNORMAL) Phosphorus (09/04/2024 5:25 PM CONTENT MANAGER) Phosphorus, pl 1.7(L) 2.3 - 4.5 mg/dL Blood 09/04/2024 5:25 PM CONTENT MANAGER 09/04/2024 5:40 PM CONTENT MANAGER us Talya Boucher MD LAB BLOOD ORDERABLES Final Res ult Performing Organization Address City/[facility] Co de Phone Number FAC[facility]DO[facility] RAMOS [address] [address] [facility] [place] [address] * Magnesium (09/04/2024 5:25 PM CONTENT MANAGER) Magnesium 2.3 1.4 - 2.5 mg/dL Blood 09/04/2024 5:25 PM CONTENT MANAGER 09/04/2024 5:40 PM CONTENT MANAGER Talya Boucher MD LAB BLOOD ORDERABLES Final Res ult Performing Organization Address [facility] de Phone Number NICOLE RAMOS [address] [address] [address] * (ABNORMAL) Blood gas, arterial (09/04/2024 5:25 PM CONTENT MANAGER) pH, Art 7.50(H) 7.35 - 7.45 [...] % [facility] Blood 09/04/2024 5:25 PM CONTENT MANAGER 09/04/2024 5:40 PM CONTENT MANAGER Talya Boucher MD LAB BLOOD ORDERABLES Final Res ult Performing Organization Address [facility] Co de Phone Number FACUNDOJYOTI RAMOS [address] [address] [facility] [place] [address] * (ABNORMAL) Basic metabolic panel (09/04/2024 5:25 PM CONTENT MANAGER) Sodium 141 135 - 145 mmol/L Potassium, pl 4.8 3.3 - 4.9 mmol/L [facility] Chloride 109 97 - 110 mmol/L [facility] CO2 21(L) 22 - 32 mmol/L [facility] Anion gap 11 2 - 15 mmol/L [facility] BUN 12 6 - 25 mg/dL [facility] Creatinine 0.93 0.60 - 1.10 mg/dL [facility] Glucose 118 70 - 199 mg/dL [facility] Comment: Interpretive Data Fasting [...] 2022. Calcium 8.5 8.5 - 10.3 mg/dL [facility] Blood 09/04/2024 5:25 PM CONTENT MANAGER 09/04/2024 5:40 PM CONTENT MANAGER Talya Boucher MD LAB BLOOD ORDERABLES Final Res ult Performing Organization Address [facility] Co de Phone Number NICOLE [address] [address] [address] * POCT glucose (09/04/2024 5:06 PM CONTENT MANAGER) Glucose, POC 116 70 - 199 mg/dL Blood 09/04/2024 5:06 PM CONTENT MANAGER 09/04/2024 5:06 PM CONTENT MANAGER Talya Boucher MD LAB POCT ORDERABLES - DEVICE F inal Result Performing Organization Address City/[facility]/ZIP Co de Phone Number [facility] [address] [address] [facility] of [address] [place] [address] * POCT glucose (09/04/2024 3:55 PM CONTENT MANAGER) Glucose, POC 101 70 - 199 mg/dL Blood 09/04/2024 3:55 PM CONTENT MANAGER 09/04/2024 3:55 PM CONTENT MANAGER Talya Boucher MD LAB POCT ORDERABLES - DEVICE F inal Result Performing Organization Address [facility]/State/ZIP Co de Phone Number NICOLE RAMOS [address] [address] Department [place] [address] * Blood culture Blood (09/04/2024 3:42 PM CONTENT MANAGER) Report Final Report: No growth Comment:Testing performed by : [facility], [address], [place]., [address] Blood 09/04/2024 3:42 PM CONTENT MANAGER 09/04/2024 6:05 PM CONTENT MANAGER Narrative NICOLE - 09/09/2024 7:00 AM CONTENT MANAGER From a different site than #1. [...] characteristics have been verified by the [facility] Microbiology [facility]. For questions about this culture, contact the Microbiology Laboratory at [phone]. Interpretive data was last revised on 24. us Jessica Martinez NP LAB MICROBIOLOGY - GENER AL ORDERABLES Final Result NICOLE RAMOS [address] [address] Department [place] [address] * Blood culture Blood (09/04/2024 3:42 PM CONTENT MANAGER) Report Final Report: No growth Comment:Testing performed by : [facility], [address], [place]., [address] Blood 09/04/2024 3:42 PM CONTENT MANAGER 09/04/2024 6:05 PM CONTENT MANAGER Narrative [facility] - 09/09/2024 7:00 AM CONTENT MANAGER Collection->Peripheral 1. Blood cultures are incubated [...] characteristics have been verified by the [facility]biology [facility]. For questions about this culture, contact the Microbiology Laboratory at [phone]. Interpretive data was last revised on 24. us Jessica Martinez NP LAB MICROBIOLOGY - [facility] ORDERABLES Final Result Performing Organization Address City/[facility]/ZIP Co de Phone Number NICOLE RAMOS [address] [address] Department [place] [address] * Calcium, ionized, whole blood (09/04/2024 3:21 PM CONTENT MANAGER) Ca, ionized, bld 4.68 4.50 - 5.10 mg/dL Blood 09/04/2024 3:21 PM CONTENT MANAGER 09/04/2024 3:29 PM CONTENT MANAGER Talya Boucher MD LAB BLOOD ORDERABLES Final Res ult Performing Organization Address [facility]/ZIP Co de Phone Number FACUNDOJYOTI [address] [address] Department [place] [address] * (ABNORMAL) Blood gas, arterial (09/04/2024 3:21 PM CONTENT MANAGER) pH, Art 7.48(H) 7.35 - 7.45 [...] % [facility] Blood 09/04/2024 3:21 PM CONTENT MANAGER 09/04/2024 3:29 PM CONTENT MANAGER Jessica Martinez NP LAB BLOOD ORDERABLES Fin al Result Performing Organization Address [facility] Co de Phone Number NICOLE [address] [address] Department of [address] [place] [address] * POCT glucose (09/04/2024 2:48 PM CONTENT MANAGER) Glucose, POC 91 70 - 199 mg/dL Blood 09/04/2024 2:48 PM CONTENT MANAGER 09/04/2024 2:48 PM CONTENT MANAGER Talya Boucher MD LAB POCT ORDERABLES - DEVICE F inal Result Performing Organization Address City/[facility] Co de Phone Number [facility] [address] [address] Department of [address] [place] [address] * POCT glucose (09/04/2024 1:49 PM CONTENT MANAGER) Glucose, POC 80 70 - 199 mg/dL Blood 09/04/2024 1:49 PM CONTENT MANAGER 09/04/2024 1:49 PM CONTENT MANAGER Talya Boucher MD LAB POCT ORDERABLES - DEVICE F inal Result Performing Organization Address City/State/ZIP Co ny Phone Number NICOLE [address] Department [place] [address] * Critical Care (09/04/2024 1:12 PM CONTENT MANAGER) Narrative Lenin Huff MD - 09/04/2024 1:12 PM CONTENT MANAGER Jessica Martinez NP 09/04/2024 1:13 PM [...] plan with the ICU team and other medical/groundwater consultant staff, making frequent assessments and decisions [...] 1 View - Portable (09/04/2024 12:57 PM CONTENT MANAGER) Anatomical Region Laterality Modality Body, Chest N/A Computed Radiogr aphy 09/04/2024 1:04 PM CONTENT MANAGER Impressions 09/04/2024 1:04 PM CONTENT MANAGER Postsurgical changes. Superior mediastinal widening. Fluid and atelectasis left base. No definite failure or pneumothorax. Nasogastric tube should BE advanced further into the stomach. Electronically signed by: Dick Renteria M.D. Narrative 09/04/2024 1:04 PM CONTENT MANAGER EXAMINATION: XR CHEST 1 VIEW DATE: [...] gastroesophageal junction and should BE advanced further. Hudson-Camden catheter entering the right IJ approach directed [...] gastroesophageal junction and should BE advanced further. Hudson-Camden catheter entering the right IJ approach directed to the main pulmonary artery. IMPRESSION: Postsurgical changes. Superior mediastinal widening. Fluid and atelectasis left base. No definite failure or pneumothorax. Nasogastric tube should BE advanced further into the stomach. Electronically signed by: Dick Renteria M.D. Talya Boucher MD IMG XR PROCEDURES Final Result * Surgical pathology (09/04/2024 12:35 PM CONTENT MANAGER) Tissue specimen (specimen) (Heart Valve) 09/04/2024 9:46 AM CONTENT MANAGER Narrative PATHOLOGY - 09/05/2024 10:09 AM CONTENT MANAGER EPIC results best viewed via link to PDF [facility] Department of Pathology [address] [place], [place] [id number] Note to Patients: This report may contain [...] Final Report Patient Name: ZURI ACEVES Address: [address] [place] [address] Gender: F : 1970 (Age: 54) Service: Cardiothoracic Location: [facility] Hospital #: [id number] Patient Type: IP Taken: 09/04/2024 Received: 09/04/2024 [...] Health System as part of an ongoing principal quality engineer program and in compliance with federally [...] determined by the Surgical Pathology Department [facility]. It has not been cleared or approved by the U. S. Food and Drug Administration. Note for decalcified specimens: This assay has not been validated on decalcified tissues. Results should be interpreted with caution given the possibility of false negativity on decalcified specimens Talya Boucher MD LAB PATHOLOGY ORDERABLES Final Result PATHOLOGY [address] [place] [address] * eGFR (09/04/2024 12:27 PM CONTENT MANAGER) eGFR 70 >=60 mL/min/1. 73 m2 [...] reviewed 2021. Blood 09/04/2024 12:2 7 PM CONTENT MANAGER 09/04/2024 12:34 PM CONTENT MANAGER Talya Boucher MD LAB BLOOD ORDERABLES Final Res ult Performing Organization Address [facility] Co de Phone Number NICOLE [address] [place] [address] * (ABNORMAL) aPTT (09/04/2024 12:27 PM CONTENT MANAGER) aPTT 26(L) 28 - 38 sec Comment: Interpretive Data Heparin therapeutic range: 66.0 - 100.0 seconds. Range based on correlation with therapeutic heparin activity range of 0.3 - 0.7 Units/mL. Current interpretive data was last revised on 2023. Blood 09/04/2024 12:2 7 PM CONTENT MANAGER 09/04/2024 12:34 PM CONTENT MANAGER Talya Boucher MD LAB BLOOD ORDERABLES Final Res ult Performing Organization Address [facility] Co de Phone Number [facility] [address] [address] [employer] [place], [place] [id number] * Protime-INR (09/04/2024 12:27 PM CONTENT MANAGER) PT 12.1 9.7 - 13.0 sec INR 1.12 0.90 - 1.20 NICOLE Comment: Interpretive data Oral anticoagulant therapeutic ranges: Venous thromboembolism prophylaxis or treatment: 2.0-3.0 CARDIOLOGY Standard range: 2.0-3.0 High-intensity range: 2.5-3.5 Refer to indication-specific guidelines for appropriate target ranges for prosthetic heart valve replacement. Current interpretive data was last revised on 2019. Blood 09/04/2024 12:2 7 PM CONTENT MANAGER 09/04/2024 12:34 PM CONTENT MANAGER Talya Boucher MD LAB BLOOD ORDERABLES Final Res ult Performing Organization Address City/[facility]/ZIP Co de Phone Number NICOLE RAMOS [address] [place] [address] * (ABNORMAL) CBC without differential (09/04/2024 12:27 PM CONTENT MANAGER) WBC 32.6(H) 3.8 - 9.9 K/cumm Hgb 11.9 11.9 - 15.5 g/dL [facility] Hct 36.5 35.6 - 45.5 % [facility] Plt 130(L) 150 - 400 K/cumm [facility] MPV 10.3 9.1 - 12.3 fL [facility] RBC 4.18 3.90 - 5.20 M/cumm [facility] MCV 87.3 81.3 - 96.4 fL [facility] MCH 28.5 27.1 - 33.3 pg [facility] MCHC 32.6 32.3 - 35.7 g/dL [facility] RDW CV 12.3 11.1 - 14.9 % [facility] RDW SD 39.7 35.7 - 48.1 fL [facility] NRBC abs 0.00 0.00 - 0.01 K/cumm [facility] Blood 09/04/2024 12:2 7 PM CONTENT MANAGER 09/04/2024 12:34 PM CONTENT MANAGER Talya Boucher MD LAB BLOOD ORDERABLES Final Res ult Performing Organization Address [facility]/ZIP Co de Phone Number NICOLE RAMOS [address] Department [employer] [place], [place] [id number] * Phosphorus (09/04/2024 12:27 PM CONTENT MANAGER) Phosphorus, pl 2.7 2.3 - 4.5 mg/dL Blood 09/04/2024 12:2 7 PM CONTENT MANAGER 09/04/2024 3:18 PM CONTENT MANAGER Talya Boucher MD LAB BLOOD ORDERABLES Final Res ult Performing Organization Address [facility] Co de Phone Number FACUNDOJYOTI RAMOS [address] [address] [facility] [address] [place] [address] * Phosphorus (09/04/2024 12:27 PM CONTENT MANAGER) Phosphorus, pl 2.7 2.3 - 4.5 mg/dL Blood 09/04/2024 12:2 7 PM CONTENT MANAGER 09/04/2024 12:34 PM CONTENT MANAGER Jessica Martinez NP LAB BLOOD ORDERABLES Fin al Result Performing Organization Address [facility] Co de Phone Number FACUNDOJYOTI RACHEL [address] [address] Department [address] [place] [address] * (ABNORMAL) Magnesium (09/04/2024 12:27 PM CONTENT MANAGER) Magnesium 2.8(H) 1.4 - 2.5 mg/dL Blood 09/04/2024 12:2 7 PM CONTENT MANAGER 09/04/2024 3:18 PM CONTENT MANAGER Talya Boucher MD LAB BLOOD ORDERABLES Final Res ult Performing Organization Address [facility] de Phone Number FACUNDOJYOTI RAMOS [address] [address] [facility] [address] [place] [address] * (ABNORMAL) Blood gas, arterial (09/04/2024 12:27 PM CONTENT MANAGER) pH, Art 7.28(L) 7.35 - 7.45 [...] Art (Measured) 98(H) 90 - 95 % [facility] Blood 09/04/2024 12:2 7 PM CONTENT MANAGER 09/04/2024 12:35 PM CONTENT MANAGER Talya Boucher MD LAB BLOOD ORDERABLES Final Res ult [facility] [address] [address] Department [place] [address] * (ABNORMAL) Basic metabolic panel (09/04/2024 12:27 PM CONTENT MANAGER) Sodium 142 135 - 145 mmol/L Potassium, pl 3.6 3.3 - 4.9 mmol/L CERNER Chloride 110 97 - 110 mmol/L [facility] CO2 20(L) 22 - 32 mmol/L [facility] Anion gap 12 2 - 15 mmol/L [facility] BUN 11 6 - 25 mg/dL [facility] Creatinine 0.96 0.60 - 1.10 mg/dL [facility] Glucose 140 70 - 199 mg/dL [facility] Comment: Interpretive Data Fasting [...] 2022. Calcium 8.1(L) 8.5 - 10.3 mg/dL [facility] Blood 09/04/2024 12:2 7 PM CONTENT MANAGER 09/04/2024 12:34 PM CONTENT MANAGER Talay Boucher MD LAB BLOOD ORDERABLES Final Res ult [facility] [place]JYOTI RAMOS [address] [address] Department [place] [address] * POCT glucose (09/04/2024 11:55 AM CONTENT MANAGER) Glucose, POC 138 70 - 199 mg/dL Blood 09/04/2024 11:5 5 AM CONTENT MANAGER 09/04/2024 11:55 AM CONTENT MANAGER Talya Boucher MD LAB POCT ORDERABLES - DEVICE F inal Result NICOLE RAMOS [address] [address] Department [place] [address] * (ABNORMAL) POC Blood Gas and Chemistries, Arterial - (09/04/2024 11:04 AM CONTENT MANAGER) pH, Art POC 7.34(L) 7.35 - [...] 90.0 - 95.0 % C[facility]ER CH SO2 (ejssica) arterial 99(H) 90 - 95 % [facility] CH Total CO2, Art POC 23 21 - 30 mmol/L [facility] CH BE, art, POC -4 mmol/L [facility] Hct, POC 32.0(L) 35.6 - 45.5 % [facility] CH Total Hb, POC 10.6(L) 11.9 - 15.5 g/dL [facility] CH Blood 09/04/2024 11:0 4 AM CONTENT MANAGER 09/04/2024 11:04 AM CONTENT MANAGER Talya Boucher MD LAB POCT ORDERABLES - DEVICE F inal Result Performing Organization Address City/[facility] Co de Phone Number NICOLE RAMOS [address] [address] [facility] [address] [place] [address] * POC Activated Clotting Time, High Range (09/04/2024 11:00 AM CONTENT MANAGER) Pathologist [facility] ACT 107 87 - 138 sec Blood 09/04/2024 11:0 0 AM CONTENT MANAGER 09/04/2024 11:00 AM CONTENT MANAGER Talya Boucher MD LAB BLOOD ORDERABLES Final Res ult Performing Organization Address [facility] de Phone Number NICOLE RAMOS [address] [address] Department of [address] [place] [address] * (ABNORMAL) POC Blood Gas and Chemistries, Arterial - (09/04/2024 10:20 AM CONTENT MANAGER) Pathologist [facility] pH, Art POC 7.32(L) 7.35 - 7.45 [...] [facility]ER CH Blood 09/04/2024 10:2 0 AM CONTENT MANAGER 09/04/2024 10:20 AM CONTENT MANAGER Talya Boucher MD LAB POCT ORDERABLES - DEVICE F inal Result Performing Organization Address City/[facility]/ZIP Co de Phone Number FACUNDOJYOTI RAMOS [address] [address] Department of [address] [place], [place] [id number] * (ABNORMAL) POC Activated Clotting Time, High Range (09/04/2024 10:19 AM CONTENT MANAGER) ACT 442(H) 87 - 138 sec Blood 09/04/2024 10:1 9 AM CONTENT MANAGER 09/04/2024 10:19 AM CONTENT MANAGER Talya Boucher MD LAB BLOOD ORDERABLES Final Res ult Performing Organization Address [facility] Co de Phone Number NICOLE RAMOS [address] [place] [address] * (ABNORMAL) POC Blood Gas and Chemistries, Arterial - (09/04/2024 9:57 AM CONTENT MANAGER) pH, Art POC 7.33(L) 7.35 - 7.45 [...] g/dL [facility] CH Blood 09/04/2024 9:57 AM CONTENT MANAGER 09/04/2024 9:57 AM CONTENT MANAGER Talya Boucher MD LAB POCT ORDERABLES - DEVICE F inal Result Performing Organization Address [facility] de Phone Number [facility] [address] [place] [address] * (ABNORMAL) Platelet count (09/04/2024 9:56 AM CONTENT MANAGER) Pathologist [facility] Plt 123(L) 150 - 400 K/cumm Blood 09/04/2024 9:56 AM CONTENT MANAGER 09/04/2024 10:10 AM CONTENT MANAGER Talya Boucher MD LAB BLOOD ORDERABLES Final Res ult Performing Organization Address [facility] de Phone Number [facility] [address] [address] Department [place] [address] * (ABNORMAL) POC Blood Gas and Chemistries, Arterial - (09/04/2024 9:55 AM CONTENT MANAGER) pH, Art POC 7.35 7.35 - [...] g/dL [facility]ER CH Blood 09/04/2024 9:55 AM CONTENT MANAGER 09/04/2024 9:55 AM CONTENT MANAGER Talya Boucher MD LAB POCT ORDERABLES - DEVICE F inal Result Performing Organization Address City/[facility]/ZIP Co de Phone Number NICOLE RAMOS [address] [address] [employer] [place], [place] [id number] * (ABNORMAL) POC Activated Clotting Time, High Range (09/04/2024 9:54 AM CONTENT MANAGER) ACT 526(H) 87 - 138 sec Blood 09/04/2024 9:54 AM CONTENT MANAGER 09/04/2024 9:54 AM CONTENT MANAGER Talya Boucher MD LAB BLOOD ORDERABLES Final Res ult Performing Organization Address City/[facility]/ZIP Co de Phone Number NICOLE RAMOS [address] [address] Department of [address] [place] [address] * (ABNORMAL) POC Blood Gas and Chemistries, Arterial - (09/04/2024 9:19 AM CONTENT MANAGER) pH, Art POC 7.32(L) 7.35 - [...] g/dL [facility] CH Blood 09/04/2024 9:19 AM CONTENT MANAGER 09/04/2024 9:19 AM CONTENT MANAGER Talya Boucher MD LAB POCT ORDERABLES - DEVICE F inal Result [facility] [address] [address] Department [place] [address] * (ABNORMAL) POC Activated Clotting Time, High Range (09/04/2024 9:18 AM CONTENT MANAGER) ACT 526(H) 87 - 138 sec Blood 09/04/2024 9:18 AM CONTENT MANAGER 09/04/2024 9:18 AM CONTENT MANAGER us Talya Boucher MD LAB BLOOD ORDERABLES Final Res ult NICOLE [address] [facility] Department [place] [address] * BW AN SHEATH INTRODUCER PERFORMABLE, PULMONARY ARTERY CATH (09/04/2024 9:15 AM CONTENT MANAGER) Narrative Enoc Guerrero AA - 09/04/2024 9:15 AM CONTENT MANAGER Enoc Guerrero AA 09/04/2024 9:15 AM [...] MD ANESTHESIA ORDERABLES Final Resu lt * CO AN ELECTIVE ENDOTRACHEAL AIRWAY (09/04/2024 9:14 AM CONTENT MANAGER) Narrative Enoc Guerrero AA - 09/04/2024 9:14 AM CONTENT MANAGER Enoc Guerrero AA 09/04/2024 9:15 AM [...] lt * Arterial Line (09/04/2024 9:13 AM CONTENT MANAGER) Narrative Enoc Guerrero AA - 09/04/2024 9:13 AM CONTENT MANAGER Enoc Guerrero AA 09/04/2024 9:14 AM [...] Clotting Time, High Range (09/04/2024 8:53 AM CONTENT MANAGER) ACT 448(H) 87 - 138 sec Blood 09/04/2024 8:53 AM CONTENT MANAGER 09/04/2024 8:53 AM CONTENT MANAGER Talya Boucher MD LAB BLOOD ORDERABLES Final Res ult NICOLE [address] [facility] Department [place] [address] * SCOTTY (09/04/2024 8:28 AM CONTENT MANAGER) Anatomical Region Laterality Modality Other Narrative 09/04/2024 8:28 AM CONTENT MANAGER Augie Gannon MD 09/04/2024 8:30 AM [...] inferior: hypokinetic 16- Apical septal: hypokinetic 17- Keystone: hypokinetic Valves: Aortic Valve: Annulus: normal (22 [...] and Chemistries, Arterial - (09/04/2024 8:21 AM CONTENT MANAGER) pH, Art POC 7.43 7.35 - [...] g/dL [facility] CH Blood 09/04/2024 8:21 AM CONTENT MANAGER 09/04/2024 8:21 AM CONTENT MANAGER Talya Boucher MD LAB POCT ORDERABLES - DEVICE F inal Result Performing Organization Address [facility]/ZIP Co de Phone Number NICOLE [address] [address] Department of [address] [place] [address] * POC Activated Clotting Time, High Range (09/04/2024 8:18 AM CONTENT MANAGER) ACT 109 87 - 138 sec Blood 09/04/2024 8:18 AM CONTENT MANAGER 09/04/2024 8:18 AM CONTENT MANAGER Talya Boucher MD LAB BLOOD ORDERABLES Final Res ult Performing Organization Address [facility]/ZIP Co de Phone Number [facility] [address] [address] Department of [address] [place] [address] * Check Sample (09/04/2024 6:51 AM CONTENT MANAGER) ABO Rh B Positive [facility] OTHER 09/04/2024 6:51 AM CONTENT MANAGER 09/04/2024 6:51 AM CONTENT MANAGER Talya Boucher MD LAB BLOOD ORDERABLES Final Res ult [facility] [address] [address] [place] [address] CH * POCT hCG, urine (09/04/2024 6:30 AM CONTENT MANAGER) HCG, ur, POC Negative Negative Lot Number [id number] QC Backgroud Clear Acceptable QC Control Line Acceptable Urine 09/04/2024 6:30 AM CONTENT MANAGER Talya Boucher MD POINT OF CARE TEST ORDERABLES Final Result * Prepare RBC: 4 Units (09/04/2024 5:35 AM CONTENT MANAGER) Product code I5489E73 C[facility]ER CH Unit Number [id number] 5-4 CERNER CH Product Blood Type BPOS CERNER CH Dispense Status RETURNED [facility]ERNER CH Product code W8997Y14 Unit Number [id number] 0-R CERNER CH Product Blood Type BPOS CERNER CH Dispense Status RETURNED CERNER CH Product code Q0250D12 CERNER CH Unit Number [id number] 8-E CERNER CH Product Blood Type BPOS CERNER CH Dispense Status RETURNED CERNER CH Product code R0841F08 CERNER CH Unit Number [id number] 6-V CERNER CH Product Blood Type BPOS CERNER CH Dispense Status RETURNED CERNER CH Blood 09/04/2024 5:35 AM CONTENT MANAGER Narrative CERNER CH - 09/05/2024 12:07 AM CONTENT MANAGER Specify Procedure:->AVR Are special requirements needed? (All products are leukoreduced and CMV- safe)- >No Date required:-[id number] LRRBC # of [id number] Reasons:-Hold for procedure (specify procedure)} Leeann Odom NP BLOOD BANK PRODUCT ORDERA BLES Final Result [facility] [address] [address] Department [place] [address] from Last 3 Months Insurance [facility] H[facility]/PPO Address: [facility] [address] [place] [address] [place] [address] FiFully ACCESS OOS FiFully ACCESS OOS Member Subscriber Plan / Payer (Ef fective 2023-Present) Name:Zuri Aceves Relation to Subscriber:Self Name:Zuri Aceves Payer ID:[id number] (NAIC) Type:HUSEYIN TRUJILLO Address: [address] [place] [id number] Advance Directives For more information, please contact: [phone] * Full Code (Latest Code Status on File) Date Activated Date Inactivated Comments 09/04/2024 12:23 PM 09/08/2024 9:18 PM Healthcare Agents on File Name Relationship Healthcare Agent Relationshi p Communication Nitesh Ellis Spouse Health Care Agent Care Teams Forming Tube Selector Relationship Specialty Start Date End Date Geovany Wong DO [address] [place] [address] PCP - General Internal Medicine 09/06/24 Dl Phillips MD Referring Physician Cardiology 12/23/22 Severino Aden MD [address] [place] [address] Consulting Physician Cardiothoracic Surgery 12/23/22 Talya Boucher MD [id number] [place] [address] Surgeon Cardiothoracic Surgery 09/08/24 Qasim Ross MD [address] [place] [address] Consulting Physician Cardiology 09/08/24
--- OUTSIDE RECORDS SUMMARY | 2024-11-25 12:59 | XMS_ITS | Referral Summary ---
Author Organization [facility] [address] Address [address] [place] [address] Care Team Providers Care Material Specialist Name Role Phone Dl Phillips MD Unavailable Severino Aden MD Unavailable [phone] Geovany Wong DO Primary Care Provider [phone] Talya Boucher MD Unavailable [phone] Qasim Ross MD Unavailable Encounters Date Type Department Care Team Description 10/04/2024 2:00 PM RN MATERNAL CHILD Office Visit [facility] Surgery [address] [place] [address] [address] [place] [address] Leeann Odom NP S/P AVR (aortic valve replacement) (Primary Dx) 09/26/2024 Orders Only [facility] Surgery [address] [place] [address] [address] [place] [address] Cynthia Haley NP 09/26/2024 Documentation [facility] Surgery [address] [place] [address] [address] [place] [address] Cynthia Haley NP Anticoagulation 09/26/2024 Documentation [facility] Surgery [address] [place] [address] [address] [place] [address] Leeann Odom NP RTW Form 09/26/2024 Orders Only [facility] Surgery [address] [place] [address] [address] [place] [address] Leeann Odom NP H/O heart valve replacement with mechanical valve (Primary Dx) 09/26/2024 8:00 AM RN MATERNAL CHILD Home Care Visit [address] [place] [address] Jaclyn Nava RN SN NON OASIS DISCHARGE 09/25/2024 Orders Only [facility] Cardiology [address] [place] [address] [place] [phone] Qasim Ross MD 09/25/2024 Telephone [facility] Cardiology [address] [place] [address] [place] [phone] Qasim Ross MD 09/25/2024 10:30 AM RN MATERNAL CHILD Office Visit [place] [address] [place] [phone] Qasim Ross MD H/O mechanical aortic valve replacement (Primary Dx) 09/24/2024 Orders Only [facility] Surgery [address] [place] [address] [address] [place] [phone] Cynthia Haley NP 09/21/2024 Documentation [facility] Surgery [address] [place] [address] [address] [place] [address] Leeann Odom NP INR Management 09/21/2024 10:00 AM RN MATERNAL CHILD Home Care Visit [address] [place] [address] Jaclyn Nava RN SN HOME VISIT 09/18/2024 Documentation [facility] Surgery [address] [place] [address] [address] [place] [address] Leeann Odom NP 09/18/2024 9:00 AM RN MATERNAL CHILD Home Care Visit [address] [place] [address] Jaclyn Nava RN SN HOME VISIT 09/14/2024 11:10 AM RN MATERNAL CHILD - 09/14/2024 11:59 PM RN MATERNAL CHILD Hospital Encounter [address] [address] Discharge Disposition: Discharge to home or self care 09/14/2024 Anticoagulation Telephone Call [facility] Surgery [address] [place] [address] [address] [place] [address] Joey Oconnor NP 09/14/2024 Documentation [facility] Surgery [address] [place] [address] [address] [place] [address] Cynthia Haley NP Anticoagulation 09/14/2024 9:00 AM RN MATERNAL CHILD Home Care Visit [address] [place] [address] Jess Aguirre RN SN HOME VISIT 09/13/2024 5:00 PM RN MATERNAL CHILD Ancillary Procedure [facility] Imaging at [address] [phone] Left shoulder pain, unspecified chronicity 09/13/2024 4:45 PM RN MATERNAL CHILD Ancillary Procedure [facility] Imaging at [address] [phone] Aortic stenosis due to bicuspid aortic valve 09/13/2024 Orders Only [facility] Surgery [address] [place] [address] [address] [place] [address] Cynthia Haley NP Aortic stenosis due to bicuspid aortic valve (Primary Dx); Left shoulder pain, unspecified chronicity 09/11/2024 [facility] Post Discharge Follow up phone call [facility] [address] [place] [address] Shagufta Ureña RN 09/11/2024 Documentation [facility] Surgery [address] [place] [address] [address] [place] [phone] Cynthia Haley NP Anticoagulation 09/11/2024 Plan of Care Documentation [address] [place] [address] 09/11/2024 11:00 AM RN MATERNAL CHILD Home Care Visit [facility] [address] [place] [address] Kevin Glover, BERTHA SN NON OASIS START OF CARE 09/10/2024 Telephone [facility] Home Care Services [address] [place] [address] Naga Devi MA 09/10/2024 Orders Only [facility] Surgery [address] [facility] [address] [place] [address] Cynthia Haley NP 09/08/2024 Home Care Visit [facility] [address] [place] [address] Katy Clark RN SN TRIAGE ENCOUNTER 09/04/2024 5:32 AM RN MATERNAL CHILD - 09/08/2024 5:00 PM RN MATERNAL CHILD Hospital Encounter [facility] [id number] [place] [phone] Talya Boucher MD Aortic stenosis, severe (Primary Dx); Aortic valve stenosis, etiology of cardiac valve disease unspecified; Aortic regurgitation due to bicuspid aortic valve Discharge Disposition: Discharge to home, [facility] 09/04/2024 7:30 AM RN MATERNAL CHILD - 09/04/2024 1:00 PM RN MATERNAL CHILD Surgery [facility] Operating Room [id number] [place] [address] Talya Boucher MD REPLACEMENT AORTIC VALVE/270MIN 09/04/2024 7:35 AM RN MATERNAL CHILD Anesthesia Event [facility] [address] [place] [address] Augie Gannon MD Ware, Melita C., TIM [...] located at home in the [facility]. The patient visit started at 10:15 a.m. [...] and/or responsible for any applicable copayments. @SIGENC2@ [facility]@ Assessment & Plan (10/15/2021 8:38 AM CDT): [...] the records for a blood work from [facility] accordingly. She does not have any [...] deep vein thrombosis (DVT) of lower extremity ([facility]/HCC) 07/28/2016 Overview (11/06/2016): Chronic deep vein thrombosis [...] the records for a blood work from [facility] accordingly. She does not have any [...] experiencing loneliness or isolatio n Never 09/11/2024 [facility] Utilities Answer Date Recorded In the past 12 months has th e [employer], gas, oil, or water [employer] threatened to shut off services in your [...] often do you attend chur ch or quaker services? Never 09/06/2024 Do you belong to any clubs o r organizations such as bahai groups, unions, fraternal or athletic groups, or [...] any time in the past 12 m [facility], were you homeless or living in [...] on file Legal Sex Female 2:03 AM RN MATERNAL CHILD Gender Identity Not on file Sexual Orientation Not on file Last Filed Vital Signs Vital Sign Reading Time Taken Comments Blood Pressure 127/74 10/04/2024 2:21 PM RN MATERNAL CHILD Pulse 80 10/04/2024 2:21 PM RN MATERNAL CHILD Temperature 36.5 C (97.7 F) 09/26/2024 8:47 AM RN MATERNAL CHILD Respiratory Rate 14 10/04/2024 2:21 PM RN MATERNAL CHILD Oxygen Saturation 98% 10/04/2024 2:21 PM RN MATERNAL CHILD Inhaled Oxygen Concentration - - Weight 106.1 kg (234 lb) 10/04/2024 2:21 PM RN MATERNAL CHILD Height 162.6 cm (5' 4 ) 10/04/2024 2:21 PM RN MATERNAL CHILD Body Mass Index 40.17 10/04/2024 2:21 PM RN MATERNAL CHILD Plan of Treatment Not on file Medical Devices Implanted Type Area Milk Bottler Device Identifier Shelf Expiration Date Model / Serial / Lot [employer] Plate Bone Low Profile 6 Hole H Shape Sternum Ti 115.102.06 - [id number] Implanted:Qt y: 1 on 09/04/2024 by Talya Boucher MD at [facility] Plate N/A: Sternum [employer] 115.102.0 6 / / [employer] Plate Bone Low Profile 4 Hole Box Sternum Ti 115.103.04 - [id number] Implanted:Qt y: 1 on 09/04/2024 by Talya Boucher MD at [facility] Plate N/A: Sternum [employer] 115.103.0 4 / / [employer] Plate Bone Low Profile 6 Hole O Shape Sternum Ti 115.104.06 - [id number] Implanted:Qt y: 1 on 09/04/2024 by Talya Boucher MD at [facility] Plate N/A: Sternum [employer] 115.104.0 6 / / [employer] Master-Serie s 23mm 18.6mm Cuff Leaflet Open Control Torque 23aj-501 - [id number] - [id number] Implanted:Qt y: 1 on 09/04/2024 by Talya Boucher MD at [facility] Prosthetic Valve N/A: Aortic Valve [employer] 02/26/2026 23AJ-501 / [id number] / 00 [employer] Screw Bone Slf Drl Full Thread Locking 3.5x14mm Ti 100.035.14 - [id number] Implanted:Qt y: 10 on 09/04/2024 by Talya Boucher MD at [facility] Screw N/A: Sternum [employer] 100.035.1 4 / / [employer] Screw Bone Slf Drl Full Thread Locking 3.5x16mm Ti 100.035.16 - [id number] Implanted:Qt y: 6 on 09/04/2024 by Talya Boucher MD at [facility] Screw N/A: Sternum [employer] 100.035.1 6 / / Procedures Procedure Name Priority Date/Time Associated Diagnosis Comments PROTIME-INR Routine 10/31/2024 6:06 AM CDT H/O heart valve replacement with mechanical valve PROTIME-INR Routine 10/03/2024 6:38 AM RN MATERNAL CHILD H/O heart valve replacement with mechanical valve POCT PROTHROMBIN TIME/INR Routine 09/26/2024 8:41 AM RN MATERNAL CHILD POCT PROTHROMBIN TIME/INR Routine 09/21/2024 10:24 AM RN MATERNAL CHILD POCT PROTHROMBIN TIME/INR Routine 09/18/2024 9:04 AM RN MATERNAL CHILD POCT PROTHROMBIN TIME/INR Routine 09/14/2024 11:31 AM RN MATERNAL CHILD EGFR Routine 09/14/2024 11:10 AM RN MATERNAL CHILD DIFFERENTIAL AUTO Routine 09/14/2024 11:10 AM RN MATERNAL CHILD CBC WITH AUTO DIFFERENTIAL Routine 09/14/2024 11:10 AM RN MATERNAL CHILD COMPREHENSIVE METABOLIC PANEL Routine 09/14/2024 11:10 AM RN MATERNAL CHILD XR SHOULDER LEFT 2 OR MORE VIEWS Schedule Routine, Read Routine (OP Routine) 09/13/2024 4:37 PM RN MATERNAL CHILD Left shoulder pain, unspecified chronicity XR CHEST PA LATERAL 2 VIEWS Schedule Routine, Read Routine (OP Routine) 09/13/2024 4:28 PM RN MATERNAL CHILD Aortic stenosis due to bicuspid aortic valve POCT PROTHROMBIN TIME/INR Routine 09/11/2024 11:59 AM RN MATERNAL CHILD TRANSTHORACIC ECHO (TTE) COMPLETE W DOPPLER/CF WO CONTRAST STAT 09/08/2024 5:45 PM RN MATERNAL CHILD XR CHEST 1 VIEW IP Routine 09/08/2024 6:17 AM RN MATERNAL CHILD EGFR Routine 09/08/2024 4:43 AM RN MATERNAL CHILD BASIC METABOLIC PANEL Routine 09/08/2024 4:43 AM RN MATERNAL CHILD CBC WITHOUT DIFFERENTIAL Routine 09/08/2024 4:43 AM RN MATERNAL CHILD PROTIME-INR Routine 09/08/2024 4:43 AM RN MATERNAL CHILD XR CHEST 1 VIEW IP Routine 09/07/2024 5:30 AM RN MATERNAL CHILD EGFR Routine 09/07/2024 4:49 AM RN MATERNAL CHILD BASIC METABOLIC PANEL Routine 09/07/2024 4:49 AM RN MATERNAL CHILD CBC WITHOUT DIFFERENTIAL Routine 09/07/2024 4:49 AM RN MATERNAL CHILD PROTIME-INR Routine 09/07/2024 4:49 AM RN MATERNAL CHILD APTT STAT 09/06/2024 2:10 PM RN MATERNAL CHILD PROTIME-INR STAT 09/06/2024 2:10 PM RN MATERNAL CHILD EGFR Timed 09/06/2024 12:52 PM RN MATERNAL CHILD MAGNESIUM Timed 09/06/2024 12:52 PM RN MATERNAL CHILD CALCIUM,IONIZED, WHOLE BLOOD Timed 09/06/2024 12:52 PM RN MATERNAL CHILD RENAL FUNCTION PANEL Timed 09/06/2024 12:52 PM RN MATERNAL CHILD POCT GLUCOSE DEVICE Routine 09/06/2024 11:55 AM RN MATERNAL CHILD POCT GLUCOSE DEVICE Routine 09/06/2024 7 :33 AM RN MATERNAL CHILD CRITICAL CARE Routine 09/06/2024 7:00 AM RN MATERNAL CHILD Aortic regurgitation due to bicuspid aortic valve XR CHEST 1 VIEW IP Routine 09/06/2024 5:34 AM RN MATERNAL CHILD EGFR Routine 09/06/2024 3:28 AM RN MATERNAL CHILD CBC WITHOUT DIFFERENTIAL Routine 09/06/2024 3:28 AM RN MATERNAL CHILD MAGNESIUM Routine 09/06/2024 3:28 AM RN MATERNAL CHILD BASIC METABOLIC PANEL Routine 09/06/2024 3:28 AM RN MATERNAL CHILD PHOSPHORUS Routine 09/06/2024 3:28 AM RN MATERNAL CHILD POCT GLUCOSE DEVICE Routine 09/05/2024 9 :00 PM RN MATERNAL CHILD POCT GLUCOSE DEVICE Routine 09/05/2024 5 :08 PM RN MATERNAL CHILD EGFR STAT 09/05/2024 3:29 PM RN MATERNAL CHILD MAGNESIUM STAT 09/05/2024 3:29 PM RN MATERNAL CHILD BASIC METABOLIC PANEL STAT 09/05/2024 3:29 PM RN MATERNAL CHILD CBC WITHOUT DIFFERENTIAL STAT 09/05/2024 3:29 PM RN MATERNAL CHILD CALCIUM,IONIZED, WHOLE BLOOD STAT 09/05/2024 3:25 PM RN MATERNAL CHILD POCT GLUCOSE DEVICE Routine 09/05/2024 12:46 PM RN MATERNAL CHILD ECG 12-LEAD STAT 09/05/2024 8:41 AM RN MATERNAL CHILD CBC WITHOUT DIFFERENTIAL STAT 09/05/2024 7:51 AM RN MATERNAL CHILD APTT STAT 09/05/2024 7:47 AM RN MATERNAL CHILD PROTIME-INR STAT 09/05/2024 7:47 AM RN MATERNAL CHILD CRITICAL CARE Routine 09/05/2024 7:05 AM RN MATERNAL CHILD Aortic regurgitation due to bicuspid aortic valve POCT GLUCOSE DEVICE Routine 09/05/2024 7 :05 AM RN MATERNAL CHILD XR CHEST 1 VIEW IP Routine 09/05/2024 5:47 AM RN MATERNAL CHILD T3, FREE Routine 09/05/2024 3:49 AM RN MATERNAL CHILD EGFR Routine 09/05/2024 3:49 AM RN MATERNAL CHILD T4, FREE Routine 09/05/2024 3:49 AM RN MATERNAL CHILD DIFFERENTIAL AUTO Routine 09/05/2024 3:4 9 AM RN MATERNAL CHILD HEMOGLOBIN A1C Routine 09/05/2024 3:49 AM RN MATERNAL CHILD THYROID FUNCTION CASCADE Routine 09/05/2024 3:49 AM RN MATERNAL CHILD LIPID PANEL Routine 09/05/2024 3:49 AM RN MATERNAL CHILD OXYHEMOGLOBIN, PULMONARY ARTERY Routine 09/05/2024 3:49 AM RN MATERNAL CHILD PHOSPHORUS Routine 09/05/2024 3:49 AM RN MATERNAL CHILD MAGNESIUM Routine 09/05/2024 3:49 AM RN MATERNAL CHILD BASIC METABOLIC PANEL Routine 09/05/2024 3:49 AM RN MATERNAL CHILD CBC WITH AUTO DIFFERENTIAL Routine 09/05/2024 3:49 AM RN MATERNAL CHILD POCT GLUCOSE DEVICE Routine 09/05/2024 2 :19 AM RN MATERNAL CHILD CRITICAL CARE Routine 09/04/2024 11:38 PM RN MATERNAL CHILD Aortic regurgitation due to bicuspid aortic valve POCT GLUCOSE DEVICE Routine 09/04/2024 9 :48 PM RN MATERNAL CHILD POCT GLUCOSE DEVICE Routine 09/04/2024 8 :41 PM RN MATERNAL CHILD POCT GLUCOSE DEVICE Routine 09/04/2024 7 :16 PM RN MATERNAL CHILD BLOOD GAS, ARTERIAL Timed 09/04/2024 6 :16 PM RN MATERNAL CHILD POCT GLUCOSE DEVICE Routine 09/04/2024 6 :13 PM RN MATERNAL CHILD EGFR STAT 09/04/2024 5:25 PM RN MATERNAL CHILD CALCIUM,IONIZED, WHOLE BLOOD STAT 09/04/2024 5:25 PM RN MATERNAL CHILD PHOSPHORUS STAT 09/04/2024 5:25 PM RN MATERNAL CHILD MAGNESIUM STAT 09/04/2024 5:25 PM RN MATERNAL CHILD BASIC METABOLIC PANEL STAT 09/04/2024 5:25 PM RN MATERNAL CHILD CBC WITHOUT DIFFERENTIAL Timed 09/04/2024 5:25 PM RN MATERNAL CHILD BLOOD GAS, ARTERIAL Timed 09/04/2024 5 :25 PM RN MATERNAL CHILD POCT GLUCOSE DEVICE Routine 09/04/2024 5 :06 PM RN MATERNAL CHILD POCT GLUCOSE DEVICE Routine 09/04/2024 3 :55 PM RN MATERNAL CHILD BLOOD CULTURE Routine 09/04/2024 3:42 PM RN MATERNAL CHILD BLOOD CULTURE Routine 09/04/2024 3:42 PM RN MATERNAL CHILD CALCIUM,IONIZED, WHOLE BLOOD STAT 09/04/2024 3:21 PM RN MATERNAL CHILD BLOOD GAS, ARTERIAL STAT 09/04/2024 3 :21 PM RN MATERNAL CHILD POCT GLUCOSE DEVICE Routine 09/04/2024 2 :48 PM RN MATERNAL CHILD POCT GLUCOSE DEVICE Routine 09/04/2024 1 :49 PM RN MATERNAL CHILD CRITICAL CARE Routine 09/04/2024 1:12 PM RN MATERNAL CHILD Aortic regurgitation due to bicuspid aortic valve XR CHEST 1 VIEW Critical/Life-T hreatening 09/04/2024 12:57 PM RN MATERNAL CHILD SURGICAL PATHOLOGY Routine 09/04/2024 12:35 PM RN MATERNAL CHILD Aortic valve stenosis, etiology of cardiac valve disease unspecified PHOSPHORUS Add-On 09/04/2024 12:27 PM RN MATERNAL CHILD MAGNESIUM Add-On 09/04/2024 12:27 PM RN MATERNAL CHILD EGFR STAT 09/04/2024 12:27 PM RN MATERNAL CHILD APTT STAT 09/04/2024 12:27 PM RN MATERNAL CHILD PROTIME-INR STAT 09/04/2024 12:27 PM RN MATERNAL CHILD CBC WITHOUT DIFFERENTIAL Timed 09/04/2024 12:27 PM RN MATERNAL CHILD BLOOD GAS, ARTERIAL Timed 09/04/2024 12:27 PM RN MATERNAL CHILD BASIC METABOLIC PANEL STAT 09/04/2024 12:27 PM RN MATERNAL CHILD PHOSPHORUS Add-On 09/04/2024 12:27 PM RN MATERNAL CHILD POCT GLUCOSE DEVICE Routine 09/04/2024 11:55 AM RN MATERNAL CHILD POC BLOOD GAS AND CHEMISTRIES, ARTERIAL Routine 09/04/2024 11:04 AM RN MATERNAL CHILD POCT ACTIVATED CLOTTING TIME, HIGH RANGE Routine 09/04/2024 11:00 AM RN MATERNAL CHILD POC BLOOD GAS AND CHEMISTRIES, ARTERIAL Routine 09/04/2024 10:20 AM RN MATERNAL CHILD POCT ACTIVATED CLOTTING TIME, HIGH RANGE Routine 09/04/2024 10:19 AM RN MATERNAL CHILD POC BLOOD GAS AND CHEMISTRIES, ARTERIAL Routine 09/04/2024 9:57 AM RN MATERNAL CHILD PLATELET COUNT STAT 09/04/2024 9:56 AM RN MATERNAL CHILD POC BLOOD GAS AND CHEMISTRIES, ARTERIAL Routine 09/04/2024 9:55 AM RN MATERNAL CHILD POCT ACTIVATED CLOTTING TIME, HIGH RANGE Routine 09/04/2024 9:54 AM RN MATERNAL CHILD POC BLOOD GAS AND CHEMISTRIES, ARTERIAL Routine 09/04/2024 9:19 AM RN MATERNAL CHILD POCT ACTIVATED CLOTTING TIME, HIGH RANGE Routine 09/04/2024 9:18 AM RN MATERNAL CHILD ANESTHESIA CENTRAL VENOUS LINE PLACEMENT Routine 09/04/2024 9:15 AM RN MATERNAL CHILD ANESTHESIA CENTRAL VENOUS LINE PLACEMENT Routine 09/04/2024 9:15 AM RN MATERNAL CHILD VT AN ELECTIVE ENDOTRACHEAL AIRWAY Routine 09/04/2024 9:14 AM RN MATERNAL CHILD ANESTHESIA ARTERIAL LINE PLACEMENT Routine 09/04/2024 9:13 AM RN MATERNAL CHILD POCT ACTIVATED CLOTTING TIME, HIGH RANGE Routine 09/04/2024 8:53 AM RN MATERNAL CHILD ANESTHESIA SCOTTY Routine 09/04/2024 8:28 AM RN MATERNAL CHILD POC BLOOD GAS AND CHEMISTRIES, ARTERIAL Routine 09/04/2024 8:21 AM RN MATERNAL CHILD POCT ACTIVATED CLOTTING TIME, HIGH RANGE Routine 09/04/2024 8:18 AM RN MATERNAL CHILD REPLACEMENT AORTIC VALVE 09/04/2024 7:35 AM RN MATERNAL CHILD Aortic valve stenosis, etiology of cardiac valve disease unspecified B CHECK SAMPLE STAT 09/04/2024 6:51 AM RN MATERNAL CHILD POCT HCG, URINE Routine 09/04/2024 6:30 AM RN MATERNAL CHILD PREPARE RBC STAT 09/04/2024 5:35 AM RN MATERNAL CHILD from Last 3 Months Results * (ABNORMAL) Protime-INR (10/31/2024 6:06 AM CDT) INR 3.4(H) [facility] Comment: Reference Range 0.9-1.1 Moderate-intensity Warfarin Therapy 2.0-3.0 Higher-intensity Warfarin Therapy 3.0-4.0 PT 33.8(H) 9.0 - 11.5 sec [facility] Comment: For additional information, please refer to http://education.The Mill/faq/BAB827 (This link is being provided for informational/ educational purposes only.) Blood 10/31/2024 6:0 6 AM CDT 10/31/2024 6:06 AM CDT Leeann Odom FLUID [employer] MECHANIC LAB BLOOD ORDERABLES Chloé l Result Performing Organization Address [facility] Co de Phone Number [facility] [address] [place] [address] * (ABNORMAL) Protime-INR (10/03/2024 6:38 AM RN MATERNAL CHILD) INR 3.2(H) [facility] Comment: Reference Range 0.9-1.1 Moderate-intensity Warfarin Therapy 2.0-3.0 Higher-intensity Warfarin Therapy 3.0-4.0 PT 32.0(H) 9.0 - 11.5 sec [facility] luisa Temple Comment: For additional information, please refer to http://education.The Mill/faq/FGG898 (This link is being provided for informational/ educational purposes only.) Blood 10/03/2024 6:38 AM RN MATERNAL CHILD 10/03/2024 6:39 AM RN MATERNAL CHILD Leeann Odom FLUID POWER MECHANIC LAB BLOOD ORDERABLES Chloé l Result Performing Organization Address [facility] Co de Phone Number [facility] [address] [place] [address] * POCT PT/INR (09/26/2024 8:41 AM RN MATERNAL CHILD) INR, POC 3.30 [facility] Comment:repeat INR on 10/03 at [facility] [place] Blood 09/26/2024 8:41 AM RN MATERNAL CHILD Cynthia Haley [employer]CH[employer] POINT OF CARE TEST ORDERAB LES Final Result Performing Organization Address [facility] Co de Phone Number HH [facility] * POCT PT/INR (09/21/2024 10:24 AM RN MATERNAL CHILD) INR, POC 3.80 [facility] Blood 09/21/2024 10:2 4 AM RN MATERNAL CHILD Talya Boucher MD POINT OF CARE TEST ORDERABLES Final Result [facility] * POCT PT/INR (09/18/2024 9:04 AM RN MATERNAL CHILD) INR, POC 3.10 [facility] Blood 09/18/2024 9:04 AM RN MATERNAL CHILD Cynthia Haley NP POINT OF CARE TEST ORDERAB LES Final Result [facility] * POCT PT/INR (09/14/2024 11:31 AM RN MATERNAL CHILD) INR, POC 1.80 [facility] Blood 09/14/2024 11:3 1 AM RN MATERNAL CHILD Cynthia Haley NP POINT OF CARE TEST ORDERAB LES Final Result [facility] * eGFR (09/14/2024 11:10 AM RN MATERNAL CHILD) eGFR 70 >=60 mL/min/1. 73 m2 Comment: [...] reviewed 2021. Blood 09/14/2024 11:1 0 AM RN MATERNAL CHILD 09/14/2024 4:43 PM RN MATERNAL CHILD us Cynthia Haley [employer]CH[employer]IC LAB BLOOD ORDERABLES Final Result [facility] Department [place] [address] * Differential, auto (09/14/2024 11:10 AM RN MATERNAL CHILD) Neutrophil abs 6.4 1.5 - 6.5 K/cumm Imm gran abs 0.1 0.0 - 0.1 K/cumm [facility] Lymphocyte abs 1.8 0.8 - 3.3 K/cumm [facility] Monocyte abs 0.6 0.2 - 0.8 K/cumm [facility] Eosinophil abs 0.0 0.0 - 0.5 K/cumm [facility] Basophil abs 0.1 0.0 - 0.1 K/cumm [facility] Neutrophil pct 71.4 % [facility] Comment: Interpretive Data Percent cell count reference ranges are not reported, since discordance with absolute values may lead to misinterpretation of CBC data. Current Interpretive Data was last revised on 2017. Imm gran pct 0.8 % [facility] Comment: Interpretive Data Percent cell count reference ranges are not reported, since discordance with absolute values may lead to misinterpretation of CBC data. Current Interpretive Data was last revised on 2017. Lymphocyte pct 19.7 % [facility] Comment: Interpretive Data Percent cell count reference ranges are not reported, since discordance with absolute values may lead to misinterpretation of CBC data. Current Interpretive Data was last revised on 2017. Monocyte pct 7.2 % [facility] Comment: Interpretive Data Percent cell count reference ranges are not reported, since discordance with absolute values may lead to misinterpretation of CBC data. Current Interpretive Data was last revised on 2017. Eosinophil pct 0.2 % [facility] Comment: Interpretive Data Percent cell count reference ranges are not reported, since discordance with absolute values may lead to misinterpretation of CBC data. Current Interpretive Data was last revised on 2017. Basophil pct 0.7 % [facility] Comment: Interpretive Data Percent cell count reference ranges are not reported, since discordance with absolute values may lead to misinterpretation of CBC data. Current Interpretive Data was last revised on 2017. Blood 09/14/2024 11:1 0 AM RN MATERNAL CHILD 09/14/2024 4:20 PM RN MATERNAL CHILD Cynthia Haley [employer]CH[employer]IC LAB BLOOD ORDERABLES Final Result [facility] [place] [address] * CBC with auto differential (09/14/2024 11:10 AM RN MATERNAL CHILD) WBC 8.9 3.8 - 9.9 K/cumm Hgb 11.9 11.9 - 15.5 g/dL [facility] Hct 35.8 35.6 - 45.5 % [facility] Plt 393 150 - 400 K/cumm [facility] MPV 10.3 9.1 - 12.3 fL [facility] RBC 4.13 3.90 - 5.20 M/cumm [facility] [facility] MCV 86.7 81.3 - 96.4 fL [facility] MCH 28.8 27.1 - 33.3 pg [facility] MCHC 33.2 32.3 - 35.7 g/dL [facility] RDW CV 12.7 11.1 - 14.9 % [facility] RDW SD 39.7 35.7 - 48.1 fL [facility] NRBC abs 0.00 0.00 - 0.01 K/cumm [facility] Blood 09/14/2024 11:1 0 AM RN MATERNAL CHILD 09/14/2024 4:20 PM RN MATERNAL CHILD Cynthia Haley [employer] LAB BLOOD ORDERABLES Final Result [facility] [place] [address] * Comprehensive metabolic panel (09/14/2024 11:10 AM RN MATERNAL CHILD) Sodium 140 135 - 145 mmol/L Potassium, pl 3.7 3.3 - 4.9 mmol/L [facility] Chloride 101 97 - 110 mmol/L [facility] CO2 28 22 - 32 mmol/L [facility] Anion gap 11 2 - 15 mmol/L [facility] BUN 14 6 - 25 mg/dL [facility] Creatinine 0.96 0.60 - 1.10 mg/dL [facility] Glucose 77 70 - 199 mg/dL [facility] Comment: Interpretive Data Fasting glucose [...] 2022. Calcium 9.0 8.5 - 10.3 mg/dL [facility] Bilirubin, total 0.2 0.1 - 1.2 mg/dL [facility] Protein, pl 6.8 6.5 - 8.5 g/dL [facility] Albumin 3.6 3.5 - 5.0 g/dL [facility] Alk phos 127 40 - 130 Units/L [facility] ALT 22 7 - 45 Units/L [facility] AST 20 10 - 45 Units/L [facility] Blood 09/14/2024 11:1 0 AM RN MATERNAL CHILD 09/14/2024 4:20 PM RN MATERNAL CHILD us Cynthia Haley NP LAB BLOOD ORDERABLES Final Result [facility] Department [place] [address] * XR Shoulder Left 2 or More Views (09/13/2024 4:37 PM RN MATERNAL CHILD) Anatomical Region Laterality Modality Upper Extremities, Shoulder Left [facility] 09/17/2024 12:0 3 AM RN MATERNAL CHILD Narrative 09/17/2024 12:23 AM RN MATERNAL CHILD EXAM DESCRIPTION: XR SHOULDER LEFT 2 OR [...] Desi Rand M.D. SN T: Report ID: [id number] Reading Location: [id number] Procedure Note Desi Rand MD - 09/17/2024 [...] Desi Rand M.D. SN T: Report ID: [id number] Reading Location: [id number] Cynthia Haley [employer] IMG XR PROCEDURES Final Re sult * X-ray chest 2 views (09/13/2024 4:28 PM RN MATERNAL CHILD) Anatomical Region Laterality Modality Body, Chest N/A Digital Radiogra phy 09/17/2024 12:0 0 AM RN MATERNAL CHILD Narrative 09/17/2024 12:01 AM RN MATERNAL CHILD EXAM DESCRIPTION: XR CHEST PA LATERAL 2 [...] Desi Rand M.D. SN T: Report ID: [id number] Reading Location: [id number] Procedure Note Desi Rand MD - 09/17/2024 [...] Desi Rand M.D. SN T: Report ID: [id number] Reading Location: [place] [address] Cynthia Haley [employer] IMG XR PROCEDURES Final Re sult * POCT PT/INR (09/11/2024 11:59 AM RN MATERNAL CHILD) INR, POC 1.60 HH POCT RESULTING LABORATORY Comment:PT TAKING ORDERED IN EVENING Blood 09/11/2024 11:5 9 AM RN MATERNAL CHILD Cynthia Haley NP POINT OF CARE TEST ORDERAB LES Final Result [facility] RESULTING [facility] * TRANSTHORACIC ECHO (TTE) COMPLETE W DOPPLER/CF WO CONTRAST (09/08/2024 5:45 PM RN MATERNAL CHILD) LV EF % CONS SCIMAGE Anatomical Region Laterality Modality Ultrasound 09/08/2024 12:5 4 PM RN MATERNAL CHILD Narrative 09/08/2024 4:21 [place] [address] Echocardiogram Report Patient Name: ZURI ACEVES SUE : 1970 Study Date: 09/08/2024 12:54:21 PM Gender: F Tech: HERON Location: [id number] Ref Provider: TALYA BOUCHER Height(Cm): 163 BSA: [...] regurgitation. Electronically Signed By: Dr. Matilda Guo [facility] 09/08/2024 4:19:47 PM RN MATERNAL CHILD Procedure Note Matilda Guo MD - 09/08/2024 [place] [address] Echocardiogram Report Patient Name: AUSTIN ELLISZURI SUE : 1970 Study Date: 09/08/2024 12:54:21 PM Gender: F Tech: PA Location: [id number] Ref Provider: TALYA BOUCHER Height(Cm): 163 BSA: [...] [ 104 - 258 ] PV Peak Micheal 0.97 m/s [ 0.40 - 0.80 ] [...] regurgitation. Electronically Signed By: Dr. Matilda Guo [facility] 09/08/2024 4:19:47 PM RN MATERNAL CHILD us Talya Boucher MD CV ECHO PROCEDURES Final Resul t * XR Chest 1 View - Portable - in AM (09/08/2024 6:17 AM RN MATERNAL CHILD) Anatomical Region Laterality Modality Body, Chest N/A Computed Radiogr aphy 09/08/2024 7:25 AM RN MATERNAL CHILD Impressions 09/08/2024 7:25 AM RN MATERNAL CHILD No change from previous. Electronically signed by: Gabriel Minaya M.D. Narrative 09/08/2024 7:25 AM RN MATERNAL CHILD EXAM: XR CHEST 1 VIEW DATE: 09/08/2024 [...] Final Result * eGFR (09/08/2024 4:43 AM RN MATERNAL CHILD) eGFR 85 >=60 mL/min/1. 73 m2 Comment: [...] last reviewed 2021. Blood 09/08/2024 4:43 AM RN MATERNAL CHILD 09/08/2024 4:43 AM RN MATERNAL CHILD Joey Oconnor NP LAB BLOOD ORDERABLES Final Result Performing Organization Address [facility] Co de Phone Number NICOLE RAMOS [address] [place] [address] * (ABNORMAL) Protime-INR (09/08/2024 4:43 AM RN MATERNAL CHILD) PT 46.1(H) 9.7 - 13.0 sec INR 4.15(H) 0.90 - 1.20 NICOLE RAMOS Comment: Interpretive data Oral anticoagulant therapeutic ranges: Venous thromboembolism prophylaxis or treatment: 2.0-3.0 CARDIOLOGY Standard range: 2.0-3.0 High-intensity range: 2.5-3.5 Refer to indication-specific guidelines for appropriate target ranges for prosthetic heart valve replacement. Current interpretive data was last revised on 2019. Blood 09/08/2024 4:43 AM RN MATERNAL CHILD 09/08/2024 4:43 AM RN MATERNAL CHILD Joey Oconnor NP LAB BLOOD ORDERABLES Final Result Performing Organization Address [facility] Co de Phone Number NICOLE RAMOS [address] [facility] [employer] [place] [address] * (ABNORMAL) CBC without differential (09/08/2024 4:43 AM RN MATERNAL CHILD) WBC 6.1 3.8 - 9.9 K/cumm Hgb 10.8(L) 11.9 - 15.5 g/dL [facility] Hct 33.2(L) 35.6 - 45.5 % [facility] Plt 166 150 - 400 K/cumm [facility] MPV 10.7 9.1 - 12.3 fL [facility] RBC 3.82(L) 3.90 - 5.20 M/cumm [facility] MCV 86.9 81.3 - 96.4 fL [facility] MCH 28.3 27.1 - 33.3 pg [facility] MCHC 32.5 32.3 - 35.7 g/dL [facility] CH RDW CV 12.4 11.1 - 14.9 % [facility] RDW SD 39.3 35.7 - 48.1 fL [facility] NRBC abs 0.00 0.00 - 0.01 K/cumm [facility] Blood 09/08/2024 4:43 AM RN MATERNAL CHILD 09/08/2024 4:43 AM RN MATERNAL CHILD Joey Oconnor NP LAB BLOOD ORDERABLES Final Result [facility] [address] Department [place] [address] * Basic metabolic panel (09/08/2024 4:43 AM RN MATERNAL CHILD) Sodium 141 135 - 145 mmol/L Potassium, pl 3.4 3.3 - 4.9 mmol/L [facility] Chloride 106 97 - 110 mmol/L [facility] CO2 25 22 - 32 mmol/L [facility] Anion gap 10 2 - 15 mmol/L [facility] BUN 17 6 - 25 mg/dL [facility] Creatinine 0.82 0.60 - 1.10 mg/dL [facility] Glucose 91 70 - 199 mg/dL [facility] Comment: Interpretive Data Fasting glucose [...] mg/dL [facility] Blood 09/08/2024 4:43 AM RN MATERNAL CHILD 09/08/2024 4:43 AM RN MATERNAL CHILD Joey Oconnor [employer] LAB BLOOD ORDERABLES Final Result NICOLE [address] Department [place] [address] * XR Chest 1 View - Portable - in AM (09/07/2024 5:30 AM RN MATERNAL CHILD) Anatomical Region Laterality Modality Body, Chest N/A Computed Radiogr aphy 09/07/2024 8:13 AM RN MATERNAL CHILD Impressions 09/07/2024 8:13 AM RN MATERNAL CHILD No failure or pneumothorax. Atelectasis left base. Electronically signed by: Dick Renteria M.D. Narrative 09/07/2024 8:13 AM RN MATERNAL CHILD EXAMINATION: XR CHEST 1 VIEW DATE: 09/07/2024 [...] Final Result * eGFR (09/07/2024 4:49 AM RN MATERNAL CHILD) eGFR 84 >=60 mL/min/1. 73 m2 Comment: [...] last reviewed 2021. Blood 09/07/2024 4:49 AM RN MATERNAL CHILD 09/07/2024 5:16 AM RN MATERNAL CHILD Joey Oconnor [employer] LAB BLOOD ORDERABLES Final Result NICOLE RAMOS [address] Department [place] [address] * (ABNORMAL) Protime-INR (09/07/2024 4:49 AM RN MATERNAL CHILD) PT 36.1(H) 9.7 - 13.0 sec INR 3.26(H) 0.90 - 1.20 NICOLE RAMOS Comment: Interpretive data Oral anticoagulant therapeutic ranges: Venous thromboembolism prophylaxis or treatment: 2.0-3.0 CARDIOLOGY Standard range: 2.0-3.0 High-intensity range: 2.5-3.5 Refer to indication-specific guidelines for appropriate target ranges for prosthetic heart valve replacement. Current interpretive data was last revised on 2019. Blood 09/07/2024 4:49 AM RN MATERNAL CHILD 09/07/2024 5:17 AM RN MATERNAL CHILD Joey Oconnor [employer] LAB BLOOD ORDERABLES Final Result Performing Organization Address City/[facility]/ZIP Co de Phone Number NICOLE RAMOS [address] Department of [employer] [place], [place] [id number] * (ABNORMAL) CBC without differential (09/07/2024 4:49 AM RN MATERNAL CHILD) WBC 8.6 3.8 - 9.9 K/cumm Hgb [...] K/cumm [facility] Blood 09/07/2024 4:49 AM RN MATERNAL CHILD 09/07/2024 5:17 AM RN MATERNAL CHILD Joey Oconnor [employer] LAB BLOOD ORDERABLES Final Result Performing Organization Address City/[facility]/ZIP Co de Phone Number NICOLE RAMOS [address] Department [place] [place] [address] * Basic metabolic panel (09/07/2024 4:49 AM RN MATERNAL CHILD) Sodium 139 135 - 145 mmol/L Potassium, pl 3.8 3.3 - 4.9 mmol/L [facility] Chloride 105 97 - 110 mmol/L [facility] CO2 25 22 - 32 mmol/L [facility] Anion gap 9 2 - 15 mmol/L [facility] BUN 18 6 - 25 mg/dL [facility] Creatinine 0.83 0.60 - 1.10 mg/dL [facility] Glucose 104 70 - 199 mg/dL [facility] Comment: Interpretive Data Fasting glucose [...] Calcium 8.8 8.5 - 10.3 mg/dL [facility] Blood 09/07/2024 4:49 AM RN MATERNAL CHILD 09/07/2024 5:16 AM RN MATERNAL CHILD Joey Oconnor NP LAB BLOOD ORDERABLES Final Result Performing Organization Address City/[facility]/ZIP Co de Phone Number NICOLE RAMOS [address] [place] [address] * (ABNORMAL) aPTT (09/06/2024 2:10 PM RN MATERNAL CHILD) aPTT 26(L) 28 - 38 sec Comment: Interpretive Data Heparin therapeutic range: 66.0 - 100.0 seconds. Range based on correlation with therapeutic heparin activity range of 0.3 - 0.7 Units/mL. Current interpretive data was last revised on 2023. Blood 09/06/2024 2:10 PM RN MATERNAL CHILD 09/06/2024 2:17 PM RN MATERNAL CHILD Narrative NICOLE - 09/06/2024 2:32 PM RN MATERNAL CHILD Baseline prior to enoxaparin initiation. Joey Oconnor NP LAB BLOOD ORDERABLES Final Result Performing Organization Address City/[facility]/ZIP Co de Phone Number NICOLE RAMOS [address] [facility] [employer] [place] [address] * (ABNORMAL) Protime-INR (09/06/2024 2:10 PM RN MATERNAL CHILD) Pathologist [facility] PT 18.5(H) 9.7 - 13.0 sec INR 1.69(H) 0.90 - 1.20 NICOLE RAMOS Comment: Interpretive data Oral anticoagulant therapeutic ranges: Venous thromboembolism prophylaxis or treatment: 2.0-3.0 CARDIOLOGY Standard range: 2.0-3.0 High-intensity range: 2.5-3.5 Refer to indication-specific guidelines for appropriate target ranges for prosthetic heart valve replacement. Current interpretive data was last revised on 2019. Blood 09/06/2024 2:10 PM RN MATERNAL CHILD 09/06/2024 2:17 PM RN MATERNAL CHILD Joey Oconnor [employer] LAB BLOOD ORDERABLES Final Result Performing Organization Address City/[facility]/ZIP Co de Phone Number NICOLE RAMOS [address] [place] [address] * Calcium, ionized, whole blood (09/06/2024 12:52 PM RN MATERNAL CHILD) [facility] Ca, ionized, bld 4.86 4.50 - 5.10 mg/dL Blood 09/06/2024 12:5 2 PM RN MATERNAL CHILD 09/06/2024 1:06 PM RN MATERNAL CHILD Zoe Ureña [employer] LAB BLOOD ORDERABLES F inal Result NICOLE [address] [facility] [employer] [place] [address] * eGFR (09/06/2024 12:52 PM RN MATERNAL CHILD) [facility] eGFR 89 >=60 mL/min/1. 73 m2 Comment: [...] reviewed 2021. Blood 09/06/2024 12:5 2 PM RN MATERNAL CHILD 09/06/2024 1:09 PM RN MATERNAL CHILD Zoe Ureña [employer] LAB BLOOD ORDERABLES F inal Result Performing Organization Address City/[facility]/ZIP Co de Phone Number NICOLE [address] [place] [address] * Magnesium (09/06/2024 12:52 PM RN MATERNAL CHILD) Pathologist [facility] Magnesium 2.0 1.4 - 2.5 mg/dL Blood 09/06/2024 12:5 2 PM RN MATERNAL CHILD 09/06/2024 1:06 PM RN MATERNAL CHILD Zoe Ureña [employer] LAB BLOOD ORDERABLES F inal Result Performing Organization Address [facility] Co de Phone Number [facility] [address] [facility] [employer] [place] [address] * (ABNORMAL) Renal function panel (09/06/2024 12:52 PM RN MATERNAL CHILD) Sodium 140 135 - 145 mmol/L Potassium, pl 4.0 3.3 - 4.9 mmol/L [facility] Chloride 107 97 - 110 mmol/L [facility] CO2 27 22 - 32 mmol/L [facility] Anion gap 6 2 - 15 mmol/L [facility] BUN 17 6 - 25 mg/dL [facility] Creatinine 0.79 0.60 - 1.10 mg/dL [facility] Glucose 105 70 - 199 mg/dL [facility] Comment: Interpretive Data Fasting glucose [...] Albumin 3.4(L) 3.5 - 5.0 g/dL [facility] Blood 09/06/2024 12:5 2 PM RN MATERNAL CHILD 09/06/2024 1:06 PM RN MATERNAL CHILD Zoe Ureña NP LAB BLOOD ORDERABLES F inal Result Performing Organization Address [facility]/ZIP Co de Phone Number [facility] [address] [place] [address] * POCT glucose (09/06/2024 11:55 AM RN MATERNAL CHILD) Glucose, POC 101 70 - 199 mg/dL Blood 09/06/2024 11:5 5 AM RN MATERNAL CHILD 09/06/2024 11:55 AM RN MATERNAL CHILD Talya Boucher MD LAB POCT ORDERABLES - DEVICE F inal Result Performing Organization Address City/[facility]/ZIP Co de Phone Number [facility] [address] Department of [employer] [place], [place] [id number] * POCT glucose (09/06/2024 7:33 AM RN MATERNAL CHILD) Glucose, POC 106 70 - 199 mg/dL Blood 09/06/2024 7:33 AM RN MATERNAL CHILD 09/06/2024 7:33 AM RN MATERNAL CHILD Talya Boucher MD LAB POCT ORDERABLES - [place] [address] [address] Department [place] [address] * Critical Care (09/06/2024 7:00 AM RN MATERNAL CHILD) Narrative Lenin Huff MD - 09/06/2024 7:00 AM RN MATERNAL CHILD Zoe Ureña NP 09/06/2024 3:56 PM Critical [...] plan with the ICU team and other medical/technical healthcare consultant staff, making frequent assessments and decisions [...] Portable - in AM (09/06/2024 5:34 AM RN MATERNAL CHILD) Anatomical Region Laterality Modality Body, Chest N/A Computed Radiogr aphy 09/06/2024 8:19 AM RN MATERNAL CHILD Impressions 09/06/2024 8:19 AM RN MATERNAL CHILD Improvement. Some residual atelectasis fluid left base. Electronically signed by: Dick Renteria M.D. Narrative 09/06/2024 8:19 AM RN MATERNAL CHILD EXAMINATION: XR CHEST 1 VIEW DATE: 09/06/2024 [...] Final Result * eGFR (09/06/2024 3:28 AM RN MATERNAL CHILD) eGFR >90 >=60 mL/min/1. 73 m2 Comment: [...] last reviewed 2021. Blood 09/06/2024 3:28 AM RN MATERNAL CHILD 09/06/2024 3:40 AM RN MATERNAL CHILD Talya Boucher MD LAB BLOOD ORDERABLES Final Res ult Performing Organization Address City/[facility]/ZIP Co de Phone Number NICOLE RAMOS [address] [place] [address] * (ABNORMAL) CBC without differential (09/06/2024 3:28 AM RN MATERNAL CHILD) WBC 10.1(H) 3.8 - 9.9 K/cumm Hgb [...] K/cumm [facility] Blood 09/06/2024 3:28 AM RN MATERNAL CHILD 09/06/2024 3:40 AM RN MATERNAL CHILD Talya Boucher MD LAB BLOOD ORDERABLES Final Res ult Performing Organization Address City/[facility]/ZIP Co de Phone Number NICOLE RAMOS [address] Department [employer] [place], [place] [id number] * Phosphorus (09/06/2024 3:28 AM RN MATERNAL CHILD) Phosphorus, pl 2.5 2.3 - 4.5 mg/dL Blood 09/06/2024 3:28 AM RN MATERNAL CHILD 09/06/2024 3:37 AM RN MATERNAL CHILD Jessica Martinez [employer] LAB BLOOD ORDERABLES Fin al Result Performing Organization Address [facility] Co de Phone Number [facility] [address] Department [employer] [place] [address] * Magnesium (09/06/2024 3:28 AM RN MATERNAL CHILD) Pathologist [facility] Magnesium 2.1 1.4 - 2.5 mg/dL Blood 09/06/2024 3:28 AM RN MATERNAL CHILD 09/06/2024 3:37 AM RN MATERNAL CHILD Talya Boucher MD LAB BLOOD ORDERABLES Final Res ult Performing Organization Address [facility] Co de Phone Number [facility] [address] Department [employer] [place] [address] * Basic metabolic panel (09/06/2024 3:28 AM RN MATERNAL CHILD) Pathologist [facility] Sodium 140 135 - 145 mmol/L Potassium, pl 4.0 3.3 - 4.9 mmol/L [facility] Chloride 107 97 - 110 mmol/L [facility] CO2 24 22 - 32 mmol/L [facility] Anion gap 9 2 - 15 mmol/L [facility] BUN 14 6 - 25 mg/dL [facility] Creatinine 0.74 0.60 - 1.10 mg/dL [facility] Glucose 120 70 - 199 mg/dL [facility] Comment: Interpretive Data Fasting glucose [...] 10.3 mg/dL NICOLE Blood 09/06/2024 3:28 AM RN MATERNAL CHILD 09/06/2024 3:37 AM RN MATERNAL CHILD Talya Boucher MD LAB BLOOD ORDERABLES Final Res ult Performing Organization Address [facility] Co de Phone Number [facility] [address] Department [employer] [place] [address] * POCT glucose (09/05/2024 9:00 PM RN MATERNAL CHILD) Glucose, POC 120 70 - 199 mg/dL Blood 09/05/2024 9:00 PM RN MATERNAL CHILD 09/05/2024 9:00 PM RN MATERNAL CHILD Talya Boucher MD LAB POCT ORDERABLES - DEVICE F inal Result Performing Organization Address [facility] Co de Phone Number [facility] [address] Department [employer] [place] [address] * POCT glucose (09/05/2024 5:08 PM RN MATERNAL CHILD) Pathologist [facility] Glucose, POC 126 70 - 199 mg/dL Blood 09/05/2024 5:08 PM RN MATERNAL CHILD 09/05/2024 5:08 PM RN MATERNAL CHILD Talya Boucher MD LAB POCT ORDERABLES - DEVICE F inal Result Performing Organization Address [facility] Co de Phone Number NICOLE [address] [facility] [employer] [place] [address] * eGFR (09/05/2024 3:29 PM RN MATERNAL CHILD) eGFR >90 >=60 mL/min/1. 73 m2 Comment: [...] last reviewed 2021. Blood 09/05/2024 3:29 PM RN MATERNAL CHILD 09/05/2024 3:30 PM RN MATERNAL CHILD us Talya Boucher MD LAB BLOOD ORDERABLES Final Res ult [facility] [address] Department [place] [address] * (ABNORMAL) CBC without differential (09/05/2024 3:29 PM RN MATERNAL CHILD) WBC 12.7(H) 3.8 - 9.9 K/cumm Hgb 11.7(L) 11.9 - 15.5 g/dL [facility] Hct 35.3(L) 35.6 - 45.5 % [facility] Plt 95(L) 150 - 400 K/cumm [facility] MPV 11.2 9.1 - 12.3 fL [facility] RBC 4.05 3.90 - 5.20 M/cumm [facility] MCV 87.2 81.3 - 96.4 fL [facility] MCH 28.9 27.1 - 33.3 pg [facility] MCHC 33.1 32.3 - 35.7 g/dL [facility] RDW CV 12.8 11.1 - 14.9 % [facility] RDW SD 40.8 35.7 - 48.1 fL [facility] NRBC abs 0.00 0.00 - 0.01 K/cumm [facility] Blood 09/05/2024 3:29 PM RN MATERNAL CHILD 09/05/2024 3:30 PM RN MATERNAL CHILD Talya Boucher MD LAB BLOOD ORDERABLES Final Res ult Performing Organization Address City/[facility]/ZIP Co de Phone Number NICOLE RAMOS [address] [facility] [employer] [place] [address] * Magnesium (09/05/2024 3:29 PM RN MATERNAL CHILD) Magnesium 2.1 1.4 - 2.5 mg/dL Blood 09/05/2024 3:29 PM RN MATERNAL CHILD 09/05/2024 3:30 PM RN MATERNAL CHILD Talya Boucher MD LAB BLOOD ORDERABLES Final Res ult Performing Organization Address [facility] de Phone Number NICOLE RAMOS [address] Department [place] [address] * Basic metabolic panel (09/05/2024 3:29 PM RN MATERNAL CHILD) Sodium 138 135 - 145 mmol/L Potassium, pl 4.0 3.3 - 4.9 mmol/L [facility] Chloride 105 97 - 110 mmol/L [facility] CO2 24 22 - 32 mmol/L [facility] Anion gap 9 2 - 15 mmol/L [facility] BUN 10 6 - 25 mg/dL [facility] Creatinine 0.76 0.60 - 1.10 mg/dL [facility] Glucose 140 70 - 199 mg/dL [facility] Comment: Interpretive Data Fasting glucose [...] mg/dL [facility] Blood 09/05/2024 3:29 PM RN MATERNAL CHILD 09/05/2024 3:30 PM RN MATERNAL CHILD Talya Boucher MD LAB BLOOD ORDERABLES Final Res ult Performing Organization Address [facility] de Phone Number NICOLE RAMOS [address] [facility] [employer] [place] [address] * Calcium, ionized, whole blood (09/05/2024 3:25 PM RN MATERNAL CHILD) Ca, ionized, bld 4.65 4.50 - 5.10 mg/dL Blood 09/05/2024 3:25 PM RN MATERNAL CHILD 09/05/2024 3:29 PM RN MATERNAL CHILD Talya Boucher MD LAB BLOOD ORDERABLES Final Res ult Performing Organization Address [facility] Phone Number NICOLE [address] [address] [facility] [employer] [place] [address] * POCT glucose (09/05/2024 12:46 PM RN MATERNAL CHILD) Glucose, POC 134 70 - 199 mg/dL Blood 09/05/2024 12:4 6 PM RN MATERNAL CHILD 09/05/2024 12:46 PM RN MATERNAL CHILD Talya Boucher MD LAB POCT ORDERABLES - DEVICE F inal Result Performing Organization Address [facility] de Phone Number NICOLE RAMOS [address] [facility] [employer] [place] [address] * ECG 12 lead (09/05/2024 8:41 AM RN MATERNAL CHILD) 09/05/2024 8:41 AM RN MATERNAL CHILD Narrative [facility] - 09/05/2024 11:12 AM RN MATERNAL CHILD Vent Rate: 96 bpm RR Interval: 624 msec VT Interval: 135 msec QRS Duration: 83 msec QT Interval: 368 msec QTC Interval: 421 msec P-R-T [place]: 7 - 1 - 10 degrees IMPRESSION: SINUS RHYTHM POSSIBLE INFERIOR MYOCARDIAL INFARCTION , PROBABLY OLD [30 ms Q WAVE IN II/aVF] BORDERLINE ECG Electronically Signed By: Dr. Matilda Guo [facility] Talya Boucher MD ECG ORDERABLES Final Result Performing Organization Address [facility]/ZIP Co de Phone Number [facility] * (ABNORMAL) CBC without differential (09/05/2024 7:51 AM RN MATERNAL CHILD) WBC 11.7(H) 3.8 - 9.9 K/cumm Hgb 11.5(L) 11.9 - 15.5 g/dL [facility] Hct 35.4(L) 35.6 - 45.5 % [facility] Plt 104(L) 150 - 400 K/cumm [facility] MPV 11.1 9.1 - 12.3 fL [facility] RBC 4.03 3.90 - 5.20 M/cumm [facility] MCV 87.8 81.3 - 96.4 fL [facility] MCH 28.5 27.1 - 33.3 pg [facility] MCHC 32.5 32.3 - 35.7 g/dL [facility] RDW CV 12.8 11.1 - 14.9 % [facility] RDW SD 41.6 35.7 - 48.1 fL [facility] NRBC abs 0.00 0.00 - 0.01 K/cumm [facility] Blood 09/05/2024 7:51 AM RN MATERNAL CHILD 09/05/2024 8:02 AM RN MATERNAL CHILD Narrative [facility] - 09/05/2024 8:40 AM RN MATERNAL CHILD Baseline prior to warfarin initiation. Talya Boucher MD LAB BLOOD ORDERABLES Final Res ult Performing Organization Address City/[facility]/ZIP Co de Phone Number [facility] [address] [address] Department [place] [address] * (ABNORMAL) aPTT (09/05/2024 7:47 AM RN MATERNAL CHILD) aPTT 27(L) 28 - 38 sec Comment: Interpretive Data Heparin therapeutic range: 66.0 - 100.0 seconds. Range based on correlation with therapeutic heparin activity range of 0.3 - 0.7 Units/mL. Current interpretive data was last revised on 2023. Blood 09/05/2024 7:47 AM RN MATERNAL CHILD 09/05/2024 8:02 AM RN MATERNAL CHILD Narrative NICOLE - 09/05/2024 8:48 AM RN MATERNAL CHILD Baseline prior to warfarin initiation. Talya Boucher MD LAB BLOOD ORDERABLES Final Res ult Performing Organization Address City/State/[facility] Co de Phone Number NICOLE [address] Department [place] [address] * Protime-INR (09/05/2024 7:47 AM RN MATERNAL CHILD) PT 11.2 9.7 - 13.0 sec INR 1.04 0.90 - 1.20 NICOLE Comment: Interpretive data Oral anticoagulant therapeutic ranges: Venous thromboembolism prophylaxis or treatment: 2.0-3.0 CARDIOLOGY Standard range: 2.0-3.0 High-intensity range: 2.5-3.5 Refer to indication-specific guidelines for appropriate target ranges for prosthetic heart valve replacement. Current interpretive data was last revised on 2019. Blood 09/05/2024 7:47 AM RN MATERNAL CHILD 09/05/2024 8:02 AM RN MATERNAL CHILD Narrative NICOLE - 09/05/2024 8:45 AM RN MATERNAL CHILD Baseline prior to warfarin initiation. Talya Boucher MD LAB BLOOD ORDERABLES Final Res ult Performing Organization Address City/[facility]/ZIP Co de Phone Number NICOLE [address] Department [place] [address] * Critical Care (09/05/2024 7:05 AM RN MATERNAL CHILD) Narrative Lenin Huff MD - 09/05/2024 7:05 AM RN MATERNAL CHILD Jessica Martinez NP 09/05/2024 7:30 AM Critical [...] plan with the ICU team and other medical/technical healthcare consultant staff, making frequent assessments and decisions [...] Result * POCT glucose (09/05/2024 7:05 AM RN MATERNAL CHILD) Glucose, POC 146 70 - 199 mg/dL Blood 09/05/2024 7:05 AM RN MATERNAL CHILD 09/05/2024 7:05 AM RN MATERNAL CHILD Talya Boucher MD LAB POCT ORDERABLES - DEVICE F inal Result Performing Organization Address City/State/[facility] Co md Phone Number [facility] [address] [address] Department of Laboratories [place], [place] [id number] * XR Chest 1 View - Portable - in AM (09/05/2024 5:47 AM RN MATERNAL CHILD) Anatomical Region Laterality Modality Body, Chest N/A Computed Radiogr aphy 09/05/2024 8:37 AM RN MATERNAL CHILD Impressions 09/05/2024 8:37 AM RN MATERNAL CHILD Improvement in the left perihilar infiltrate. Residual fluid and atelectasis left base. Extubation.. Electronically signed by: Dick Renteria M.D. Narrative 09/05/2024 8:37 AM RN MATERNAL CHILD EXAMINATION: XR CHEST 1 VIEW DATE: 09/05/2024 [...] * Oxyhemoglobin, pulmonary artery (09/05/2024 3:49 AM RN MATERNAL CHILD) Oxyhemoglobin, PA 70.1 % Comment: Interpretive Data No reference range established. Current interpretive data was last revised 2019. Blood 09/05/2024 3:49 AM RN MATERNAL CHILD 09/05/2024 4:00 AM RN MATERNAL CHILD us Jessica Martinez FLUID POWER MECHANIC LAB BLOOD ORDERABLES Fin al Result NIOCLE [address] [address] Department [place] [address] * eGFR (09/05/2024 3:49 AM RN MATERNAL CHILD) Pathologist [facility] eGFR 80 >=60 mL/min/1. 73 m2 Comment: [...] last reviewed 2021. Blood 09/05/2024 3:49 AM RN MATERNAL CHILD 09/05/2024 4:02 AM RN MATERNAL CHILD us Talya Boucher MD LAB BLOOD ORDERABLES Final Res ult [facility] [address] [address] Department [place] [address] * (ABNORMAL) Differential, auto (09/05/2024 3:49 AM RN MATERNAL CHILD) Neutrophil abs 8.8(H) 1.5 - 6.5 K/cumm Imm gran abs 0.1 0.0 - 0.1 K/cumm [facility] Lymphocyte abs 1.0 0.8 - 3.3 K/cumm [facility] Monocyte abs 0.9(H) 0.2 - 0.8 K/cumm [facility] Eosinophil abs 0.0 0.0 - 0.5 K/cumm [facility] Basophil abs 0.0 0.0 - 0.1 K/cumm [facility] Neutrophil pct 81.4 % NICOLE Comment: [...] revised on 2017. Blood 09/05/2024 3:49 AM RN MATERNAL CHILD 09/05/2024 4:02 AM RN MATERNAL CHILD us Talya Boucher MD LAB BLOOD ORDERABLES Final Res ult Performing Organization Address City/[facility]/ZIP Co de Phone Number [facility] [address] [address] Department [place] [place] [address] * (ABNORMAL) Thyroid Function [place] (09/05/2024 3:49 AM RN MATERNAL CHILD) TSH 0.21(L) 0.30 - 4.20 mcIUnit/mL Blood 09/05/2024 3:49 AM RN MATERNAL CHILD 09/05/2024 4:02 AM RN MATERNAL CHILD us Jessica Martinez NP LAB BLOOD ORDERABLES Fin al Result [facility] [address] [address] Department [place] [employer] [place] [address] * (ABNORMAL) CBC with auto differential (09/05/2024 3:49 AM RN MATERNAL CHILD) WBC 10.8(H) 3.8 - 9.9 K/cumm Hgb 11.7(L) 11.9 - 15.5 g/dL [facility] Hct 35.9 35.6 - 45.5 % [facility] Plt 101(L) 150 - 400 K/cumm [facility] MPV 10.5 9.1 - 12.3 fL [facility] RBC 4.10 3.90 - 5.20 M/cumm [facility] MCV 87.6 81.3 - 96.4 fL [facility] MCH 28.5 27.1 - 33.3 pg [facility] MCHC 32.6 32.3 - 35.7 g/dL [facility] RDW CV 12.7 11.1 - 14.9 % [facility] RDW SD 40.8 35.7 - 48.1 fL [facility] NRBC abs 0.00 0.00 - 0.01 K/cumm [facility] Blood 09/05/2024 3:49 AM RN MATERNAL CHILD 09/05/2024 4:02 AM RN MATERNAL CHILD us Talya Boucher MD LAB BLOOD ORDERABLES Final Res ult Performing Organization Address [facility]/ZIP Co de Phone Number NICOLE [address] [place] [address] * T3, free (09/05/2024 3:49 AM RN MATERNAL CHILD) Free T3 3.0 2.0 - 4.4 pg/mL Blood 09/05/2024 3:49 AM RN MATERNAL CHILD 09/05/2024 4:02 AM RN MATERNAL CHILD Narrative [facility] - 09/05/2024 12:49 PM RN MATERNAL CHILD This test was reflexed from a Free T4 result. us Jessica Martinez NP LAB BLOOD ORDERABLES Fin al Result Performing Organization Address City/[facility]/ZIP Co de Phone Number [facility] [address] [address] Department of [employer] [place], [place] [id number] * T4, free (09/05/2024 3:49 AM RN MATERNAL CHILD) Free T4 1.07 0.90 - 1.70 ng/dL Blood 09/05/2024 3:49 AM RN MATERNAL CHILD 09/05/2024 4:02 AM RN MATERNAL CHILD Jessica Combs Michelle FLUID POWER MECHANIC LAB BLOOD ORDERABLES Fin al Result Performing Organization Address [facility] de Phone Number [facility] [address] [address] [facility] [employer] [place] [address] * Phosphorus (09/05/2024 3:49 AM RN MATERNAL CHILD) Phosphorus, pl 4.0 2.3 - 4.5 mg/dL Blood 09/05/2024 3:49 AM RN MATERNAL CHILD 09/05/2024 4:02 AM RN MATERNAL CHILD Jessica Lauryn Martinez FLUID POWER MECHANIC LAB BLOOD ORDERABLES Fin al Result Performing Organization Address [facility] Phone Number [facility] [address] [address] [facility] [employer] [place] [address] * Magnesium (09/05/2024 3:49 AM RN MATERNAL CHILD) Magnesium 2.3 1.4 - 2.5 mg/dL Blood 09/05/2024 3:49 AM RN MATERNAL CHILD 09/05/2024 4:02 AM RN MATERNAL CHILD Talya Boucher MD LAB BLOOD ORDERABLES Final Res ult Performing Organization Address [facility] de Phone Number [facility] [address] [address] [facility] [employer] [place] [address] * Hemoglobin A1c (09/05/2024 3:49 AM RN MATERNAL CHILD) Hgb A1C 5.3 4.0 - 5.6 % Estimated Average Glucose 105 mg/dL NICOLE RAMOS Comment: The ADA recommends reporting an estimated Average Glucose (eAG) with all Hemoglobin A1c results using the equation derived from a study of 507 normal and diabetic adults. Minority populations were underrepresented and children were not included. (Diabetes Care 31:6644-4959, 2008). The eAG is not equivalent to a fasting glucose. Blood 09/05/2024 3:49 AM RN MATERNAL CHILD 09/05/2024 4:02 AM RN MATERNAL CHILD Jessica Martinez NP LAB BLOOD ORDERABLES Fin al Result NICOLE [address] [address] Department [place] [address] * Lipid panel (09/05/2024 3:49 AM RN MATERNAL CHILD) Cholesterol 90 30 - 199 mg/dL Comment: [...] 2 NICOLE RAMOS Blood 09/05/2024 3:49 AM RN MATERNAL CHILD 09/05/2024 4:02 AM RN MATERNAL CHILD us Jessica Martinez NP LAB BLOOD ORDERABLES Fin al Result NICOLE RAMOS [address] Department [place] [address] * (ABNORMAL) Basic metabolic panel (09/05/2024 3:49 AM RN MATERNAL CHILD) Sodium 143 135 - 145 mmol/L Potassium, pl 4.8 3.3 - 4.9 mmol/L [facility] Chloride 111(H) 97 - 110 mmol/L [facility] CO2 22 22 - 32 mmol/L [facility] Anion gap 10 2 - 15 mmol/L [facility] BUN 12 6 - 25 mg/dL [facility] Creatinine 0.86 0.60 - 1.10 mg/dL [facility] Glucose 134 70 - 199 mg/dL [facility] Comment: Interpretive Data Fasting glucose [...] Calcium 8.3(L) 8.5 - 10.3 mg/dL [facility] Blood 09/05/2024 3:49 AM RN MATERNAL CHILD 09/05/2024 4:02 AM RN MATERNAL CHILD Talya Boucher MD LAB BLOOD ORDERABLES Final Res ult Performing Organization Address [facility] Co de Phone Number NICOLE RAMOS [address] [address] Department [place] [address] * POCT glucose (09/05/2024 2:19 AM RN MATERNAL CHILD) Glucose, POC 132 70 - 199 mg/dL Blood 09/05/2024 2:19 AM RN MATERNAL CHILD 09/05/2024 2:19 AM RN MATERNAL CHILD Talya Boucher MD LAB POCT ORDERABLES - DEVICE F inal Result Performing Organization Address City/[facility]/ZIP Co de Phone Number NICOLE RAMOS [address] [place] [address] * Critical Care (09/04/2024 11:38 PM RN MATERNAL CHILD) Narrative Cullen Lezama MD - 09/04/2024 11:38 PM RN MATERNAL CHILD Fito Nation PA 09/05/2024 2:57 AM Critical [...] plan with the ICU team and other medical/technical healthcare consultant staff, making frequent assessments and decisions [...] Result * POCT glucose (09/04/2024 9:48 PM RN MATERNAL CHILD) Glucose, POC 123 70 - 199 mg/dL Blood 09/04/2024 9:48 PM RN MATERNAL CHILD 09/04/2024 9:48 PM RN MATERNAL CHILD Talya Boucher MD LAB POCT ORDERABLES - DEVICE F inal Result Performing Organization Address City/[facility]/ZIP Co de Phone Number NICOLE RAMOS [address] [address] Department [place] [address] * POCT glucose (09/04/2024 8:41 PM RN MATERNAL CHILD) Glucose, POC 131 70 - 199 mg/dL Blood 09/04/2024 8:41 PM RN MATERNAL CHILD 09/04/2024 8:41 PM RN MATERNAL CHILD Talya Boucher MD LAB POCT ORDERABLES - DEVICE F inal Result Performing Organization Address [facility] de Phone Number [facility] [address] [address] Department [place] [employer] [place] [address] * POCT glucose (09/04/2024 7:16 PM RN MATERNAL CHILD) Glucose, POC 125 70 - 199 mg/dL Blood 09/04/2024 7:16 PM RN MATERNAL CHILD 09/04/2024 7:16 PM RN MATERNAL CHILD Talya Boucher MD LAB POCT ORDERABLES - DEVICE F inal Result Performing Organization Address [facility] de Phone Number [facility] [address] [address] Department [place] [place] [address] * (ABNORMAL) Blood gas, arterial (09/04/2024 6:16 PM RN MATERNAL CHILD) pH, Art 7.34(L) 7.35 - 7.45 PCO2, [...] % [facility] Blood 09/04/2024 6:16 PM RN MATERNAL CHILD 09/04/2024 6:23 PM RN MATERNAL CHILD Talya Boucher MD LAB BLOOD ORDERABLES Final Res ult Performing Organization Address [facility] Co de Phone Number NICOLE RAMOS [address] [address] Department [place] [address] * POCT glucose (09/04/2024 6:13 PM RN MATERNAL CHILD) Glucose, POC 112 70 - 199 mg/dL Blood 09/04/2024 6:1 3 PM RN MATERNAL CHILD 09/04/2024 6:13 PM RN MATERNAL CHILD Talya Boucher MD LAB POCT ORDERABLES - DEVICE F inal Result Performing Organization Address City/[facility] Co de Phone Number NICOLE [address] [address] Department [place] [employer] [place] [address] * Calcium, ionized, whole blood (09/04/2024 5:25 PM RN MATERNAL CHILD) Ca, ionized, bld 4.67 4.50 - 5.10 mg/dL Blood 09/04/2024 5:25 PM RN MATERNAL CHILD 09/04/2024 5:40 PM RN MATERNAL CHILD Talya Boucher MD LAB BLOOD ORDERABLES Final Res ult Performing Organization Address [facility] Co de Phone Number NICOLE [address] [address] [facility] [employer] [place] [address] * eGFR (09/04/2024 5:25 PM RN MATERNAL CHILD) eGFR 73 >=60 mL/min/1. 73 m2 Comment: [...] last reviewed 2021. Blood 09/04/2024 5:25 PM RN MATERNAL CHILD 09/04/2024 5:43 PM RN MATERNAL CHILD Talya Boucher MD LAB BLOOD ORDERABLES Final Res ult Performing Organization Address City/[facility] Co de Phone Number NICOLE RAMOS [address] [address] Department [place] [address] * (ABNORMAL) CBC without differential (09/04/2024 5:25 PM RN MATERNAL CHILD) WBC 14.8(H) 3.8 - 9.9 K/cumm Hgb 11.7(L) 11.9 - 15.5 g/dL [facility] Hct 35.3(L) 35.6 - 45.5 % [facility] Plt 107(L) 150 - 400 K/cumm [facility] MPV 10.8 9.1 - 12.3 fL [facility] RBC 4.16 3.90 - 5.20 M/cumm [facility] MCV 84.9 81.3 - 96.4 fL [facility] MCH 28.1 27.1 - 33.3 pg [facility] MCHC 33.1 32.3 - 35.7 g/dL [facility] RDW CV 12.4 11.1 - 14.9 % [facility] RDW SD 38.2 35.7 - 48.1 fL [facility] NRBC abs 0.00 0.00 - 0.01 K/cumm [facility] Blood 09/04/2024 5:25 PM RN MATERNAL CHILD 09/04/2024 5:43 PM RN MATERNAL CHILD Talya Boucher MD LAB BLOOD ORDERABLES Final Res ult Performing Organization Address [facility] Co de Phone Number NICOLE RAMOS [address] [address] Department [place] [place] [address] * (ABNORMAL) Phosphorus (09/04/2024 5:25 PM RN MATERNAL CHILD) Phosphorus, pl 1.7(L) 2.3 - 4.5 mg/dL Blood 09/04/2024 5:25 PM RN MATERNAL CHILD 09/04/2024 5:40 PM RN MATERNAL CHILD Talya Boucher MD LAB BLOOD ORDERABLES Final Res ult Performing Organization Address [facility] Co de Phone Number NICOLE RAMOS [address] [address] Department [place] [place] [address] * Magnesium (09/04/2024 5:25 PM RN MATERNAL CHILD) Pathologist [facility] Magnesium 2.3 1.4 - 2.5 mg/dL Blood 09/04/2024 5:25 PM RN MATERNAL CHILD 09/04/2024 5:40 PM RN MATERNAL CHILD Talya Boucher MD LAB BLOOD ORDERABLES Final Res ult Performing Organization Address [facility] de Phone Number NICOLE RAMOS [address] [address] Department [place] [employer] [place] [address] * (ABNORMAL) Blood gas, arterial (09/04/2024 5:25 PM RN MATERNAL CHILD) Pathologist [facility] pH, Art 7.50(H) 7.35 - 7.45 PCO2, [...] [facility] Blood 09/04/2024 5:2 5 PM RN MATERNAL CHILD 09/04/2024 5:40 PM RN MATERNAL CHILD Talya Boucher MD LAB BLOOD ORDERABLES Final Res ult Performing Organization Address [facility] de Phone Number [facility] [address] [address] Department [place] [address] * (ABNORMAL) Basic metabolic panel (09/04/2024 5:25 PM RN MATERNAL CHILD) Sodium 141 135 - 145 mmol/L Potassium, pl 4.8 3.3 - 4.9 mmol/L [facility] Chloride 109 97 - 110 mmol/L [facility] CO2 21(L) 22 - 32 mmol/L [facility] Anion gap 11 2 - 15 mmol/L [facility] BUN 12 6 - 25 mg/dL [facility] Creatinine 0.93 0.60 - 1.10 mg/dL [facility] Glucose 118 70 - 199 mg/dL [facility] Comment: Interpretive Data Fasting glucose [...] Calcium 8.5 8.5 - 10.3 mg/dL [facility] Blood 09/04/2024 5:25 PM RN MATERNAL CHILD 09/04/2024 5:40 PM RN MATERNAL CHILD Talya Boucher MD LAB BLOOD ORDERABLES Final Res ult [facility] [address] [address] Department [place] [address] * POCT glucose (09/04/2024 5:06 PM RN MATERNAL CHILD) Glucose, POC 116 70 - 199 mg/dL Blood 09/04/2024 5:06 PM RN MATERNAL CHILD 09/04/2024 5:06 PM RN MATERNAL CHILD Talya Boucher MD LAB POCT ORDERABLES - DEVICE F inal Result NICOLE RAMOS [address] [address] Department [place] [place] [address] * POCT glucose (09/04/2024 3:55 PM RN MATERNAL CHILD) Glucose, POC 101 70 - 199 mg/dL Blood 09/04/2024 3:55 PM RN MATERNAL CHILD 09/04/2024 3:55 PM RN MATERNAL CHILD Talya Boucher MD LAB POCT ORDERABLES - DEVICE F inal Result Performing Organization Address [facility] Co de Phone Number NICOLE RAMOS [address] [address] Department [place] [place] [address] * Blood culture Blood (09/04/2024 3:42 PM RN MATERNAL CHILD) Report Final Report: No growth Comment:Testing performed by : [facility], [address] [place]., [address] Blood 09/04/2024 3:42 PM RN MATERNAL CHILD 09/04/2024 6:05 PM RN MATERNAL CHILD Narrative NICOLE - 09/09/2024 7:00 AM RN MATERNAL CHILD From a different site than #1. Collection->Peripheral [...] performance characteristics have been verified by the [facility] Microbiology Laboratory. For questions about this culture, contact the Microbiology Laboratory at [phone]. Interpretive data was last revised on 24. Jessica Martinez NP LAB MICROBIOLOGY - GENER AL ORDERABLES Final Result [facility] [address] [address] Department [place] [address] * Blood culture Blood (09/04/2024 3:42 PM RN MATERNAL CHILD) Report Final Report: No growth Comment:Testing performed by : [facility], [address] [place]., [address] Blood 09/04/2024 3:42 PM RN MATERNAL CHILD 09/04/2024 6:05 PM RN MATERNAL CHILD Narrative NICOLE RAMOS - 09/09/2024 7:00 AM RN MATERNAL CHILD Collection->Peripheral 1. Blood cultures are incubated for [...] performance characteristics have been verified by the [facility] Microbiology Laboratory. For questions about this culture, contact the Microbiology Laboratory at [phone]. Interpretive data was last revised on 24. Jessica Martinez NP LAB MICROBIOLOGY - GENER AL ORDERABLES Final Result Performing Organization Address City/[facility]/ZIP Co de Phone Number NICOLE RAMOS [address] [address] Department [place] [employer] [place] [address] * Calcium, ionized, whole blood (09/04/2024 3:21 PM RN MATERNAL CHILD) Ca, ionized, bld 4.68 4.50 - 5.10 mg/dL Blood 09/04/2024 3:21 PM RN MATERNAL CHILD 09/04/2024 3:29 PM RN MATERNAL CHILD Talya Boucher MD LAB BLOOD ORDERABLES Final Res ult Performing Organization Address [facility] Co de Phone Number NICOLE RAMOS [address] [address] Department [place] [place] [address] * (ABNORMAL) Blood gas, arterial (09/04/2024 3:21 PM RN MATERNAL CHILD) pH, Art 7.48(H) 7.35 - 7.45 PCO2, [...] % [facility] Blood 09/04/2024 3:21 PM RN MATERNAL CHILD 09/04/2024 3:29 PM RN MATERNAL CHILD Jessica Martinez NP LAB BLOOD ORDERABLES Fin al Result Performing Organization Address [facility] Co de Phone Number NICOLE RAMOS [address] [facility] [employer] [place] [address] * POCT glucose (09/04/2024 2:48 PM RN MATERNAL CHILD) Glucose, POC 91 70 - 199 mg/dL Blood 09/04/2024 2:48 PM RN MATERNAL CHILD 09/04/2024 2:48 PM RN MATERNAL CHILD Talya Boucher MD LAB POCT ORDERABLES - DEVICE F inal Result Performing Organization Address [facility] Co de Phone Number NICOLE RAMOS [address] [address] Department [place] [address] * POCT glucose (09/04/2024 1:49 PM RN MATERNAL CHILD) Glucose, POC 80 70 - 199 mg/dL Blood 09/04/2024 1:49 PM RN MATERNAL CHILD 09/04/2024 1:49 PM RN MATERNAL CHILD Talya Boucher MD LAB POCT ORDERABLES - DEVICE F inal Result Performing Organization Address [facility] Phone Number NICOLE RAMOS [phone] [address] Department [place] [address] * Critical Care (09/04/2024 1:12 PM RN MATERNAL CHILD) Narrative Lenin Huff MD - 09/04/2024 1:12 PM RN MATERNAL CHILD Jessica Martinez NP 09/04/2024 1:13 PM Critical [...] plan with the ICU team and other medical/technical healthcare consultant staff, making frequent assessments and decisions [...] in the medical record us Jessica Martinez FLUID POWER MECHANIC IN CLINIC/BEDSIDE ORDERA BLES Final Result * XR Chest 1 View - Portable (09/04/2024 12:57 PM RN MATERNAL CHILD) Anatomical Region Laterality Modality Body, Chest N/A Computed Radiogr aphy 09/04/2024 1:04 PM RN MATERNAL CHILD Impressions 09/04/2024 1:04 PM RN MATERNAL CHILD Postsurgical changes. Superior mediastinal widening. Fluid and atelectasis left base. No definite failure or pneumothorax. Nasogastric tube should BE advanced further into the stomach. Electronically signed by: Dick Renteria M.D. Narrative 09/04/2024 1:04 PM RN MATERNAL CHILD EXAMINATION: XR CHEST 1 VIEW DATE: 09/04/2024 [...] gastroesophageal junction and should BE advanced further. [place] catheter entering the right IJ approach directed [...] gastroesophageal junction and should BE advanced further. [place] catheter entering the right IJ approach directed to the main pulmonary artery. IMPRESSION: Postsurgical changes. Superior mediastinal widening. Fluid and atelectasis left base. No definite failure or pneumothorax. Nasogastric tube should BE advanced further into the stomach. Electronically signed by: Dick Renteria M.D. Talya Boucher MD IMG XR PROCEDURES Final Result * Surgical pathology (09/04/2024 12:35 PM RN MATERNAL CHILD) Tissue specimen (specimen) (Heart Valve) 09/04/2024 9:46 AM RN MATERNAL CHILD Narrative PATHOLOGY - 09/05/2024 10:09 AM RN MATERNAL CHILD EPIC results best viewed via link to PDF [facility] Department of Pathology [address] [place] [id number] Note to Patients: This report may [...] Final Report Patient Name: ZURI ACEVES Address: [address] [place] [address] Gender: F : 1970 (Age: 54) Service: Cardiothoracic Location: [facility] Hospital #: [id number] Patient Type: [facility] Taken: 09/04/2024 Received: 09/04/2024 Accessioned: 09/04/2024 Reported: [...] determined by the Surgical Pathology Department at [facility] as part of an ongoing ethanol quality leader program and in compliance with federally mandated [...] characteristics determined by the Surgical Pathology Department [facility]. It has not been cleared or approved by the U. S. Food and Drug Administration. Note for decalcified specimens: This assay has not been validated on decalcified tissues. Results should be interpreted with caution given the possibility of false negativity on decalcified specimens us Talya Boucher MD LAB PATHOLOGY ORDERABLES Final Result PATHOLOGY [address] [place] [address] * eGFR (09/04/2024 12:27 PM RN MATERNAL CHILD) eGFR 70 >=60 mL/min/1. 73 m2 Comment: [...] reviewed 2021. Blood 09/04/2024 12:2 7 PM RN MATERNAL CHILD 09/04/2024 12:34 PM RN MATERNAL CHILD Talya Boucher MD LAB BLOOD ORDERABLES Final Res ult Performing Organization Address City/[facility]/ZIP Co de Phone Number NICOLE [address] [place] [address] * (ABNORMAL) aPTT (09/04/2024 12:27 PM RN MATERNAL CHILD) aPTT 26(L) 28 - 38 sec Comment: Interpretive Data Heparin therapeutic range: 66.0 - 100.0 seconds. Range based on correlation with therapeutic heparin activity range of 0.3 - 0.7 Units/mL. Current interpretive data was last revised on 2023. Blood 09/04/2024 12:2 7 PM RN MATERNAL CHILD 09/04/2024 12:34 PM RN MATERNAL CHILD Talya Boucher MD LAB BLOOD ORDERABLES Final Res ult FACUNDOJYOTI [address] Department [employer] [place], [place] [id number] * Protime-INR (09/04/2024 12:27 PM RN MATERNAL CHILD) Pathologist [facility] PT 12.1 9.7 - 13.0 sec INR 1.12 0.90 - 1.20 [facility] Comment: Interpretive data Oral anticoagulant therapeutic ranges: Venous thromboembolism prophylaxis or treatment: 2.0-3.0 CARDIOLOGY Standard range: 2.0-3.0 High-intensity range: 2.5-3.5 Refer to indication-specific guidelines for appropriate target ranges for prosthetic heart valve replacement. Current interpretive data was last revised on 2019. Blood 09/04/2024 12:2 7 PM RN MATERNAL CHILD 09/04/2024 12:34 PM RN MATERNAL CHILD Talya Boucher MD LAB BLOOD ORDERABLES Final Res ult NICOLE [address] [address] Department [place] [address] * (ABNORMAL) CBC without differential (09/04/2024 12:27 PM RN MATERNAL CHILD) Pathologist [facility] WBC 32.6(H) 3.8 - 9.9 K/cumm Hgb 11.9 11.9 - 15.5 g/dL [facility] Hct 36.5 35.6 - 45.5 % [facility] Plt 130(L) 150 - 400 K/cumm [facility] MPV 10.3 9.1 - 12.3 fL [facility] RBC 4.18 3.90 - 5.20 M/cumm [facility] MCV 87.3 81.3 - 96.4 fL [facility] MCH 28.5 27.1 - 33.3 pg [facility] MCHC 32.6 32.3 - 35.7 g/dL [facility] RDW CV 12.3 11.1 - 14.9 % [facility] RDW SD 39.7 35.7 - 48.1 fL [facility] NRBC abs 0.00 0.00 - 0.01 K/cumm [facility] Blood 09/04/2024 12:2 7 PM RN MATERNAL CHILD 09/04/2024 12:34 PM RN MATERNAL CHILD Talya Boucher MD LAB BLOOD ORDERABLES Final Res ult NICOLE RAMOS [address] [facility] [employer] [place] [address] * Phosphorus (09/04/2024 12:27 PM RN MATERNAL CHILD) Phosphorus, pl 2.7 2.3 - 4.5 mg/dL Blood 09/04/2024 12:2 7 PM RN MATERNAL CHILD 09/04/2024 3:18 PM RN MATERNAL CHILD Talya Boucher MD LAB BLOOD ORDERABLES Final Res ult Performing Organization Address [facility]/ZIP Co de Phone Number FACUNDOJYOTI RAMOS [address] [address] Department [employer] [place] [address] * Phosphorus (09/04/2024 12:27 PM RN MATERNAL CHILD) Phosphorus, pl 2.7 2.3 - 4.5 mg/dL Blood 09/04/2024 12:2 7 PM RN MATERNAL CHILD 09/04/2024 12:34 PM RN MATERNAL CHILD Jessica Martinez NP LAB BLOOD ORDERABLES Fin al Result Performing Organization Address [facility] Co de Phone Number NICOLE RAMOS [address] [address] Department [place] [place] [address] * (ABNORMAL) Magnesium (09/04/2024 12:27 PM RN MATERNAL CHILD) Magnesium 2.8(H) 1.4 - 2.5 mg/dL Blood 09/04/2024 12:2 7 PM RN MATERNAL CHILD 09/04/2024 3:18 PM RN MATERNAL CHILD Talya Boucher MD LAB BLOOD ORDERABLES Final Res ult Performing Organization Address City/[facility]/ZIP Co de Phone Number NICOLE RAMOS [address] [address] Department [place] [employer] [place] [address] * (ABNORMAL) Blood gas, arterial (09/04/2024 12:27 PM RN MATERNAL CHILD) pH, Art 7.28(L) 7.35 - 7.45 PCO2, [...] [facility] Blood 09/04/2024 12:2 7 PM RN MATERNAL CHILD 09/04/2024 12:35 PM RN MATERNAL CHILD Talya Boucher MD LAB BLOOD ORDERABLES Final Res ult [facility] [address] [address] Department [place] [address] * (ABNORMAL) Basic metabolic panel (09/04/2024 12:27 PM RN MATERNAL CHILD) Sodium 142 135 - 145 mmol/L Potassium, pl 3.6 3.3 - 4.9 mmol/L [facility] Chloride 110 97 - 110 mmol/L [facility] CO2 20(L) 22 - 32 mmol/L [facility] Anion gap 12 2 - 15 mmol/L [facility] BUN 11 6 - 25 mg/dL [facility] Creatinine 0.96 0.60 - 1.10 mg/dL [facility] Glucose 140 70 - 199 mg/dL [...] [facility] Blood 09/04/2024 12:2 7 PM RN MATERNAL CHILD 09/04/2024 12:34 PM RN MATERNAL CHILD Talya Boucher MD LAB BLOOD ORDERABLES Final Res ult Performing Organization Address City/[facility]/ZIP Co de Phone Number NICOLE RAMOS [address] [address] [facility] [employer] [place] [address] * POCT glucose (09/04/2024 11:55 AM RN MATERNAL CHILD) Glucose, POC 138 70 - 199 mg/dL Blood 09/04/2024 11:5 5 AM RN MATERNAL CHILD 09/04/2024 11:55 AM RN MATERNAL CHILD Talya Boucher MD LAB POCT ORDERABLES - DEVICE F inal Result Performing Organization Address [facility] Co de Phone Number NICOLE RAMOS [address] [address] Department [employer] [place] [address] * (ABNORMAL) POC Blood Gas and Chemistries, Arterial - (09/04/2024 11:04 AM RN MATERNAL CHILD) pH, Art POC 7.34(L) 7.35 - 7.45 [...] [facility] Blood 09/04/2024 11:0 4 AM RN MATERNAL CHILD 09/04/2024 11:04 AM RN MATERNAL CHILD Talya Boucher MD LAB POCT ORDERABLES - DEVICE F inal Result Performing Organization Address [facility]/ZIP Co de Phone Number NICOLE RAMOS [address] [address] [employer] [place] [address] * POC Activated Clotting Time, High Range (09/04/2024 11:00 AM RN MATERNAL CHILD) ACT 107 87 - 138 sec Blood 09/04/2024 11:0 0 AM RN MATERNAL CHILD 09/04/2024 11:00 AM RN MATERNAL CHILD Talya Boucher MD LAB BLOOD ORDERABLES Final Res ult Performing Organization Address [facility] Co de Phone Number FACUNDOJYOTI RAMOS [address] [address] Department [place] [employer] [place] [address] * (ABNORMAL) POC Blood Gas and Chemistries, Arterial - (09/04/2024 10:20 AM RN MATERNAL CHILD) pH, Art POC 7.32(L) 7.35 - 7.45 [...] [facility] Blood 09/04/2024 10:2 0 AM RN MATERNAL CHILD 09/04/2024 10:20 AM RN MATERNAL CHILD Talya Boucher MD LAB POCT ORDERABLES - DEVICE F inal Result Performing Organization Address [facility] Co de Phone Number NICOLE RAMOS [address] [place] [address] * (ABNORMAL) POC Activated Clotting Time, High Range (09/04/2024 10:19 AM RN MATERNAL CHILD) ACT 442(H) 87 - 138 sec Blood 09/04/2024 10:1 9 AM RN MATERNAL CHILD 09/04/2024 10:19 AM RN MATERNAL CHILD Talya Boucher MD LAB BLOOD ORDERABLES Final Res ult Performing Organization Address [facility] Co de Phone Number NICOLE RACHEL [address] [address] [employer] [place] [address] * (ABNORMAL) POC Blood Gas and Chemistries, Arterial - (09/04/2024 9:57 AM RN MATERNAL CHILD) pH, Art POC 7.33(L) 7.35 - 7.45 [...] g/dL [facility] Blood 09/04/2024 9:57 AM RN MATERNAL CHILD 09/04/2024 9:57 AM RN MATERNAL CHILD Talya Boucher MD LAB POCT ORDERABLES - DEVICE F inal Result Performing Organization Address [facility] Co de Phone Number [facility] [address] [address] [employer] [place] [address] * (ABNORMAL) Platelet count (09/04/2024 9:56 AM RN MATERNAL CHILD) Plt 123(L) 150 - 400 K/cumm Blood 09/04/2024 9:56 AM RN MATERNAL CHILD 09/04/2024 10:10 AM RN MATERNAL CHILD Talya Boucher MD LAB BLOOD ORDERABLES Final Res ult Performing Organization Address [facility]/ZIP Co de Phone Number [facility] [address] [address] Department [place] [employer] [place] [address] * (ABNORMAL) POC Blood Gas and Chemistries, Arterial - (09/04/2024 9:55 AM RN MATERNAL CHILD) pH, Art POC 7.35 7.35 - 7.45 [...] g/dL [facility] Blood 09/04/2024 9:55 AM RN MATERNAL CHILD 09/04/2024 9:55 AM RN MATERNAL CHILD us Talya Boucher MD LAB POCT ORDERABLES - DEVICE F inal Result [facility] [address] [address] Department [place] [address] * (ABNORMAL) POC Activated Clotting Time, High Range (09/04/2024 9:54 AM RN MATERNAL CHILD) ACT 526(H) 87 - 138 sec Blood 09/04/2024 9:54 AM RN MATERNAL CHILD 09/04/2024 9:54 AM RN MATERNAL CHILD Talya Boucher MD LAB BLOOD ORDERABLES Final Res ult NICOLE RAMOS [address] [place] [address] * (ABNORMAL) POC Blood Gas and Chemistries, Arterial - (09/04/2024 9:19 AM RN MATERNAL CHILD) pH, Art POC 7.32(L) 7.35 - 7.45 [...] g/dL [facility] Blood 09/04/2024 9:19 AM RN MATERNAL CHILD 09/04/2024 9:19 AM RN MATERNAL CHILD Talya Boucher MD LAB POCT ORDERABLES - DEVICE F inal Result NICOLE RAMOS [address] [address] Department [employer] [place] [address] * (ABNORMAL) POC Activated Clotting Time, High Range (09/04/2024 9:18 AM RN MATERNAL CHILD) ACT 526(H) 87 - 138 sec Blood 09/04/2024 9:18 AM RN MATERNAL CHILD 09/04/2024 9:18 AM RN MATERNAL CHILD us Talya Boucher MD LAB BLOOD ORDERABLES Final Res ult NICOLE RAMOS [address] Department [place] [address] * BW AN SHEATH INTRODUCER PERFORMABLE, PULMONARY ARTERY CATH (09/04/2024 9:15 AM RN MATERNAL CHILD) Narrative Enoc Guerrero AA - 09/04/2024 9:15 AM RN MATERNAL CHILD Enoc Guerrero AA 09/04/2024 9:15 AM Central [...] MD ANESTHESIA ORDERABLES Final Resu lt * VT AN ELECTIVE ENDOTRACHEAL AIRWAY (09/04/2024 9:14 AM RN MATERNAL CHILD) Enoc King AA - 09/04/2024 9:14 AM RN MATERNAL CHILD Enoc Guerrero AA 09/04/2024 9:15 AM Airway [...] lt * Arterial Line (09/04/2024 9:13 AM RN MATERNAL CHILD) Enoc King AA - 09/04/2024 9:13 AM RN MATERNAL CHILD Enoc Guerrero AA 09/04/2024 9:14 AM Arterial [...] Clotting Time, High Range (09/04/2024 8:53 AM RN MATERNAL CHILD) ACT 448(H) 87 - 138 sec Blood 09/04/2024 8:53 AM RN MATERNAL CHILD 09/04/2024 8:53 AM RN MATERNAL CHILD us Talya Boucher MD LAB BLOOD ORDERABLES Final Res ult [facility] [address] [facility] Department [place] [address] * SCOTTY (09/04/2024 8:28 AM RN MATERNAL CHILD) Anatomical Region Laterality Modality Other Narrative 09/04/2024 8:28 AM RN MATERNAL CHILD Augie Gannon MD 09/04/2024 8:30 AM SCOTTY [...] inferior: hypokinetic 16- Apical septal: hypokinetic 17- [place]: hypokinetic Valves: Aortic Valve: Annulus: normal (22 [...] and Chemistries, Arterial - (09/04/2024 8:21 AM RN MATERNAL CHILD) pH, Art POC 7.43 7.35 - 7.45 [...] g/dL [facility] Blood 09/04/2024 8:21 AM RN MATERNAL CHILD 09/04/2024 8:21 AM RN MATERNAL CHILD Talya Boucher MD LAB POCT ORDERABLES - DEVICE F inal Result Performing Organization Address City/[facility]/ZIP Co de Phone Number NICOLE [address] [address] Department [employer] [place] [address] * POC Activated Clotting Time, High Range (09/04/2024 8:18 AM RN MATERNAL CHILD) ACT 109 87 - 138 sec Blood 09/04/2024 8:18 AM RN MATERNAL CHILD 09/04/2024 8:18 AM RN MATERNAL CHILD Talya Boucher MD LAB BLOOD ORDERABLES Final Res ult NICOLE [address] [address] Department [place] [employer] [place] [address] * Check Sample (09/04/2024 6:51 AM RN MATERNAL CHILD) ABO Rh B Positive CH [facility] OTHER 09/04/2024 6:51 AM RN MATERNAL CHILD 09/04/2024 6:51 AM RN MATERNAL CHILD Talya Boucher MD LAB BLOOD ORDERABLES Final Res ult NICOLE [address] [address] [place] [address] CH * POCT hCG, urine (09/04/2024 6:30 AM RN MATERNAL CHILD) HCG, ur, POC Negative Negative Lot Number [id number] QC Backgroud Clear Acceptable QC Control Line Acceptable Urine 09/04/2024 6:30 AM RN MATERNAL CHILD Talya Boucher MD POINT OF CARE TEST ORDERABLES Final Result * Prepare RBC: 4 Units (09/04/2024 5:35 AM RN MATERNAL CHILD) Product code [id number] [facility] Unit Number [id number] 5-4 [facility] Product Blood Type BPOS [facility] Dispense Status RETURNED [facility] Product code [id number] Unit Number [id number] 0-R [facility] Product Blood Type BPOS CERNER CH Dispense Status RETURNED [facility]ER [facility] Product code [id number] [facility]ERNER CH Unit Number [id number] 8-E [facility]ERNER CH Product Blood Type BPOS CERNER CH Dispense Status RETURNED [facility] Product code [id number] [facility] Unit Number [id number] 6-V [facility] Product Blood Type BPOS [facility]ERNER CH Dispense Status RETURNED [facility] Blood 09/04/2024 5:35 AM RN MATERNAL CHILD Narrative [facility]ER [facility] - 09/05/2024 12:07 AM RN MATERNAL CHILD Specify Procedure:->AVR Are special requirements needed? (All products are leukoreduced and CMV- safe)- >No Date required:-[id number] [facility] # of [id number] Reasons:-Hold for procedure (specify procedure)} us Leeann Odom [employer] [place]ODUCT [place] [address] [address] Department [place] [address] from Last 3 Months Insurance [employer]ITADANA OPEN ACCESS [employer] [place] [address] [employer] Advance Directives For more information, please contact: [phone] * Full Code (Latest Code Status on File) Date Activated Date Inactivated Comments 09/04/2024 12:23 PM 09/08/2024 9:18 PM Healthcare Agents on File Name Relationship Healthcare Agent Relationshi p Communication Nitesh Ellis Spouse Health Care Agent Care Teams Material Specialist Relationship Specialty Start Date End Date Geovany Wong DO [address] [place] [address] PCP - General Internal Medicine 09/06/24 Dl Phillips MD Referring Physician Cardiology 12/23/22 Severino Aden MD [address] [place] [address] Consulting Physician Cardiothoracic Surgery 12/23/22 Talya Boucher MD [address] [facility] [id number] [place] [address] Surgeon Cardiothoracic Surgery 09/08/24 Qasim Ross MD [address] [place] [address] Consulting Physician Cardiology 09/08/24
--- NOTE | 2024-11-25 13:08 | ED.GENADULT ---
HPI - General Adult General Chief complaint: Chest Pain Stated complaint: CP Time Seen by Provider: 11/25/24 12:31 History of Present Illness HPI narrative: 54-year-old female with history of CABG done at [facility] in September presents to [facility] for evaluation for chest pain that has been going on since . Patient also does report she has a prior history of PE and DVT. Patient states pain is worsened with deep inspiration and deep expiration but denies any other inciting causes of the pain. Related Data Home Medications ?Medication ?Instructions ?Recorded ?Confirmed ?Last Taken ?Type ziprasidone HCl 20 mg capsule See Rx Instructions .Route .COMPLEX 01/27/22 09/21/24 07/23/24 History alprazolam 1 mg tablet 2 mg PO QHS 10/13/22 09/21/24 07/20/24 History multivitamin 1 tablet PO DAILY 10/13/22 09/21/24 07/23/24 History venlafaxine 150 mg 300 mg PO DAILY 10/13/22 09/21/24 07/23/24 History capsule,extended release 24 hr lisdexamfetamine 70 mg capsule 70 mg PO DAILY 05/03/23 09/21/24 07/23/24 History (Vyvanse) pravastatin 40 mg tablet 40 mg PO HS 06/03/23 09/21/24 07/20/24 History warfarin 4 mg tablet 4 mg PO DAILY 09/21/24 09/21/24 Unknown History Allergies Allergy/AdvReac Type Severity Reaction Status Date / Time carbamazepine Allergy Severe Loss of Verified 09/21/24 10:19 Consciousness latex Allergy Intermediate rash, Verified 09/21/24 10:19 swelling Penicillins Allergy Intermediate Hives, Verified 09/21/24 10:19 yeast infection Review of Systems Review of Systems: All systems reviewed & are unremarkable except as noted in HPI and below PMFSH Past Medical History Medical History (Updated 11/25/24 @ 16:37 by Marcelino Kelly MD) Cardiac abnormality BMI 39.0-39.9,adult Nausea Abnormal laboratory test Constipation Bloating Mouth sore Arthritis of left knee Hyperlipidemia Arthritis of carpometacarpal (CMC) joint of left thumb Osteoarthritis of left shoulder Recurrent falls Anxiety Essential (primary) hypertension History of CVA (cerebrovascular accident) Surgical History Surgical History (Updated 09/21/24 @ 12:38 by TWAN Celestin) History of open heart surgery History of gastric surgery History of cholecystectomy H/O: section Family History Family History Sibling Hypertension Mother Family history of thyroid disease Hypertension A-fib Father , Parkinson's disease No problems noted. Social History Social History (Updated 09/21/24 @ 12:39 by TWAN Celestin) Smoking packs per day: 1.5 Smoking cigarettes per day: 30.0 Years smoked: 7 Smoking pack-years: 10.50 Smoking status: Former smoker Tobacco type: cigarettes Second hand tobacco smoke exposure: No Smoking end date: 08/01/06 Additional smoking assessment comments: CHANTIX CURRENTLY DOWN TO 6 CIG. 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[employer] Gender identity (if verbalized by the patient): Female Spiritual care concerns: No Exam Narrative: APPEARANCE: Well appearing, no pain, no distress, well-nourished. HEAD: normocephalic, atraumatic. EYES: PERRLA/EOMI, conjunctivae clear. NOSE: Normal no drainage EARS:TMS clear with good light reflex. THROAT: Pharynx clear, no exudate. NECK: Supple. No adenopathy, no masses. RESPIRATORY: Airway patent, respirations nonlabored. Clear to auscultation bilaterally, no rales, rhonchi, wheezing. CARDIOVASCULAR: Regular rate and rhythm without murmurs rubs or gallops. ABDOMINAL: Soft, nontender, nondistended, normal bowel sounds MUSCULOSKELETAL: Reproducible chest wall tenderness to palpation NEURO: Alert. Cranial nerves II through XII intact. Good gait. Good coordination SKIN: Warm, dry. Normal Color Psychiatry: Anxious affect Course Vital Signs Vital signs: Vital Signs Pulse Rate 110 H 11/25/24 12:32 Respiratory Rate 17 11/25/24 12:32 Blood Pressure 142/88 H 11/25/24 12:32 Pulse Oximetry 100 11/25/24 12:32 Oxygen Delivery Room Air 11/25/24 12:32 Pulse Rate 103 H 11/25/24 16:55 Respiratory Rate 16 11/25/24 16:55 Blood Pressure 133/86 11/25/24 16:55 Pulse Oximetry 98 11/25/24 16:55 Oxygen Delivery Room Air 11/25/24 12:50 Medical Decision Making [facility] Narrative Medical decision making narrative: 54-year-old female presents emergency department for evaluation for chest pain this been ongoing for the last few days. Patient denies any specific triggers for the pain other than deep expiration. Patient does have prior history of PE and DVT. Patient is currently afebrile with no leukocytosis and hemoglobin of 12.7, INR is 2.5, CMP had no acute abnormalities. Patient is still troponin was less than 0.012 patient's repeat troponin was 0.015. Patient was offered both admission and also further observation for a 6 hour troponin patient declined. Patient preferred to have outpatient follow-up with Cardiology. Patient's CTA was negative for pulmonary embolism. Patient was educated on the risks of having the mildly elevated troponin Differential Diagnosis Differential Diagnosis: Pulmonary embolism, ACS, pleurisy, pneumonia, pneumothorax Vital Signs Vital Signs: Vital Signs Pulse Rate 110 H 11/25/24 12:32 Respiratory Rate 17 11/25/24 12:32 Blood Pressure 142/88 H 11/25/24 12:32 Pulse Oximetry 100 11/25/24 12:32 Oxygen Delivery Room Air 11/25/24 12:32 Pulse Rate 103 H 11/25/24 16:55 Respiratory Rate 16 11/25/24 16:55 Blood Pressure 133/86 11/25/24 16:55 Pulse Oximetry 98 11/25/24 16:55 Oxygen Delivery Room Air 11/25/24 12:50 Lab Data Lab results reviewed: Yes I reviewed the patient's lab results. 11/25/24 12:48 11/25/24 12:48 Labs: Lab Results 11/25/24 11/25/24 Range/Units 12:48 15:28 WBC 6.2 (4.5-10.0) K/mm3 RBC 4.60 (4.2-5.4) M/mm3 Hgb 12.7 (12.0-15.0) g/dL Hct 40.5 (37.0-47.0) % MCV 88.0 (80-100) fl MCH 27.6 (26-34) pg MCHC 31.4 L (32-36) g/dl RDW 12.3 (11.5-14.5) % Plt Count 294 D (150-375) k/mm3 MPV 9.7 (7.4-10.4) fl Immature Gran % (Auto) 0.3 (0-0.5) % Neut % (Auto) 68.5 (45.5-73.1) % Lymph % (Auto) 24.2 (18.3-44.2) % Young % (Auto) 6.4 (2.6-8.5) % Eos % (Auto) 0.0 (0-4.4) % Baso % (Auto) 0.6 (0.2-1.2) % Lymph # (Auto) 1.51 (0.9-3.2) K/mm3 Young # (Auto) 0.4 (0.1-0.6) K/mm3 Eos # (Auto) 0.0 (0-0.3) K/mm3 Baso # (Auto) 0.0 (0.0-0.1) K/mm3 Abs Immat Gran (auto) 0.02 (0.00-0.031) K/mm3 Absolute Neuts (auto) 4.3 (1.3-6.7) K/mm3 Absolute Nucleated RBC 0.000 (0.0-0.012) K/mm3 Nucleated RBC % 0.0 (0.0-0.2) % PT 27.9 H (11.1-14.7) Seconds INR 2.5 APTT 39.9 H (22.3-36.8) Seconds Sodium 139 (137-145) mmol/L Potassium 3.6 (3.4-5.0) mmol/L Chloride 104 (98-107) mmol/L Carbon Dioxide 27 (22-30) mmol/L Anion Gap 8 (4-12) mmol/L BUN 11 (7-17) mg/dL Creatinine 0.87 (0.7-1.0) mg/dL Estim Creat Clear Calc 79 ml/min Estimated GFR > 60 (59 - ) Glucose 138 H (65-110) mg/dL Calcium 9.3 (8.4-10.2) mg/dL Total Bilirubin 0.2 (0.2-1.3) mg/dL AST 33 (14-36) U/L ALT 25 (6-35) U/L Alkaline Phosphatase 107 (38-126) U/L Troponin I < 0.012 0.015 D (0.000-0.034) ng/mL Total Protein 7.0 (6.3-8.2) g/dL Albumin 4.0 (3.5-5.1) g/dL Lipase 156 (23-300) U/L Imaging Data Radiologist's impression: Impressions Chest CTA 11/25/24 13:59 IMPRESSION: 1. No pulmonary embolism or other acute cardiopulmonary disease. Chest X-Ray 11/25/24 14:04 IMPRESSION: No acute cardiopulmonary pathology. Discharge Plan Discharge Clinical Impression: Chest pain Patient Disposition: Home Condition: Stable Instructions: Antibiotic Form, Chest Pain (ED) Additional Instructions: Your initial troponin was negative but your 2nd troponin was mildly elevated compared to the 1st but still within normal limits. You were offered admission for further cardiac rule out or further observation in the emergency department for a 3rd troponin check but you preferred to have follow-up with your postdoctoral research fellow as outpatient. If you have any worsening symptoms then please call or return to the emergency department. Patient Language: Serbian Prescriptions: No Action alprazolam 1 mg tablet 2 mg PO QHS venlafaxine 150 mg capsule,extended release 24hr 300 mg PO DAILY multivitamin Tablet 1 tablet PO DAILY nitroglycerin 0.4 mg tablet, sublingual 0.4 mg sublingual Q5M PRN (Reason: chest pain) Qty: 30 1RF Rx Instructions: do not exceed 3 doses per episode warfarin 4 mg tablet 4 mg PO DAILY omeprazole 40 mg capsule,delayed release(DR/EC) 40 mg PO DAILY 90 Days Qty: 90 3RF ziprasidone HCl 20 mg capsule See Rx Instructions .ROUTE .COMPLEX Rx Instructions: 20 mg Q morning and 80 mg Q HS-give with food (meal/snack) lisdexamfetamine [Vyvanse] 70 mg capsule 70 mg PO DAILY pravastatin 40 mg tablet 40 mg PO HS varenicline tartrate 1 mg tablet 1 mg PO BID Qty: 56 1RF (DME) Accu-Chek Safe-T-Pro 23 gauge misc See Rx Instructions .Route Qty: 200 1RF Rx Instructions: Use daily as directed ramipril [Altace] 10 mg capsule 10 mg PO DAILY Qty: 90 1RF Patient Comments: has not received medication yet but knows she is supposed to be taking it doxycycline hyclate 100 mg capsule 100 mg PO BID Qty: 20 0RF Follow-up/Referrals: Geovany Wong DO [Primary Care Provider] -
[2024-11-25 13:11] LABS: Alanine Aminotransferase 25 U/L (6-35); Alkaline Phosphatase 107 U/L (38-126); Anion Gap 8 mmol/L (4-12); Aspartate Amino Transferase 33 U/L (14-36); Bilirubin,Total 0.2 mg/dL (0.2-1.3); Blood Urea Nitrogen 11 mg/dL (7-17); Calcium 9.3 mg/dL (8.4-10.2); Carbon Dioxide 27 mmol/L (22-30); Chloride 104 mmol/L (98-107); Estimated CRCL calculation 79 ml/min; Estimated Glomerular Filt Rate > 60; Glucose 138 mg/dL (65-110); Lipase 156 U/L (23-300); Potassium 3.6 mmol/L (3.4-5.0); Sodium 139 mmol/L (137-145)
[2024-11-25 13:16] LABS: Basophils Percent Auto 0.6 % (0.2-1.2); Hematocrit 40.5 % (37.0-47.0); Hemoglobin 12.7 g/dL (12.0-15.0); Immature Granulocyte Absolute 0.02 K/mm3 (0.00-0.031); Immature Granulocyte Percent A 0.3 % (0-0.5); Lymphocytes Absolute Auto 1.51 K/mm3 (0.9-3.2); Lymphocytes Percent Auto 24.2 % (18.3-44.2); Mean Corpuscular HGB Conc 31.4 g/dl (32-36); Mean Corpuscular Hemoglobin 27.6 pg (26-34); Mean Platelet Volume 9.7 fl (7.4-10.4); Monocytes Absolute Auto 0.4 K/mm3 (0.1-0.6); Monocytes Percent Auto 6.4 % (2.6-8.5); Neutrophils Absolute Auto 4.3 K/mm3 (1.3-6.7); Neutrophils Percent Auto 68.5 % (45.5-73.1); Platelet Count Result 294 k/mm3 (150-375); Red Cell Distribution Width 12.3 % (11.5-14.5); White Blood Count 6.2 K/mm3 (4.5-10.0)
[2024-11-25 13:23] LABS: Troponin I < 0.012 ng/mL (0.000-0.034)
[2024-11-25 13:26] LABS: INR 2.5; Partial Thromboplastin Time 39.9 Seconds (22.3-36.8); Prothrombin Time 27.9 Seconds (11.1-14.7)
[2024-11-25 15:29] VITALS: BP 134/88; PULSE 100; RESP 20; O2SAT 99
[2024-11-25 15:57] LABS: Troponin I 0.015 ng/mL (0.000-0.034)
--- NOTE | 2024-11-25 16:38 | ECG_ITS ---
Test Date: 2024-11-25 16:47:17 Measurements Intervals [place] Rate: 109 P: 40 OK: 116 QRS: -7 QRSD: 95 T: 54 QT: 343 QTc: 462 Interpretive Statements SINUS TACHYCARDIA WITH SHORT OK INTERVAL MINIMAL Q WAVES- ANTEROLAT/HIGH LAT LEADS CONSIDER ANTERIOR INFARCT, AGE INDETERMINATE INFERIOR INFARCT, AGE INDETERMINATE BASELINE ARTIFACT- I, II, AVR ABNORMAL ECG Compared to ECG 11/25/2024 12:28:46 NO SIGNIFICANT CHANGE Electronically Signed On 11-25-2024 18:42:27 CDT by Surendra Phillips D.O.
[2024-11-25 16:41] VITALS: BP 118/82; PULSE 101; RESP 18; O2SAT 99
[2024-11-25 16:55] VITALS: BP 133/86; PULSE 103; RESP 16; O2SAT 98
== END 2024-11-25 16:57 | disposition home or self-care (01) ==
PROVIDERS: Student in an Organized Health Care Education/Training Program; Emergency Provider Emergency Medicine; PCP Internal Medicine
DX: R07.9 Chest pain, unspecified (principal); I10 Essential (primary) hypertension; E78.5 Hyperlipidemia, unspecified; M17.12 Unilateral primary osteoarthritis, left knee; M18.9 Osteoarthritis of first carpometacarpal joint, unspecified; M19.012 Primary osteoarthritis, left shoulder; F41.9 Anxiety disorder, unspecified; F17.210 Nicotine dependence, cigarettes, uncomplicated; Z95.1 Presence of aortocoronary bypass graft; Z86.711 Personal history of pulmonary embolism; Z86.718 Personal history of other venous thrombosis and embolism; Z86.73 Personal history of transient ischemic attack (TIA), and cerebral infarction without residual deficits; Z90.49 Acquired absence of other specified parts of digestive tract; Z79.01 Long term (current) use of anticoagulants; Z79.899 Other long term (current) drug therapy; R94.31 Abnormal electrocardiogram [ECG] [EKG]; R00.0 Tachycardia, unspecified
CPT/HCPCS: 36415; 71046; 71275; 80053; 83690; 84484; 85025; 85610; 85730; 93005; 99284; Q9967

== ENCOUNTER 2025-04-03 16:15 | Outpatient (RCR) | payer BC, SELFPAY | END 2025-04-04 14:09 | disposition home or self-care (01) | LOC: ANHCPREHAB 16:15 | PROVIDERS: PCP Internal Medicine; Visit Provider Internal Medicine | DX: Z95.2 Presence of prosthetic heart valve (principal) | CPT/HCPCS: 93798 ==

== ENCOUNTER 2025-04-21 16:24 | Emergency (ER) | payer BC, SELFPAY ==
[2025-04-21] VITALS (14 sets, daily range): BP systolic 133–148; BP diastolic 66–98; PULSE 89–97; RESP 20–22; TEMP 36.4; O2SAT 90–100
--- NOTE | ~2025-04-21 | CT_ITS ---
EXAMINATION: CT cervical spine wo con COMPARISON: None HISTORY: neck pain s/p fall TECHNIQUE: Axial images were obtained through the spine without IV contrast. Coronal, sagittal reconstruction images were obtained from the axial views. CT scan performed using dose optimization techniques including the following automated exposure control; adjustment of mA and/or kV; use of iterative reconstruction technique. Automatic exposure control was used to reduce radiation dose. Permanent radiation dose record is archived to PACS. FINDINGS: The vertebral heights are intact. No fracture or subluxation. Moderate loss of disc height C5-6 with moderate canal and foraminal stenosis. Soft tissues subcentimeter bilateral calcified thyroid nodules noted. Impression: No acute abnormality. Reviewed, dictated and finalized at location A. Impression: No acute abnormality.
--- NOTE | ~2025-04-21 | CT_ITS ---
EXAMINATION: CT thoracic lumbar wo con, 04/21/2025 18:40 CDT HISTORY: back pain s/p fall COMPARISON: No comparisons available. Technique: Axial images were obtained of the spine per protocol. One or more of the following dose reduction techniques were used: automated exposure control, adjustment of the mA and/or kV according to patient size, use of iterative reconstruction technique. Unless otherwise stated, incidental findings do not require dedicated follow up imaging Findings: The vertebral heights are intact. No fracture or subluxation. The disc heights are intact. Soft tissues demonstrate subcentimeter thyroid nodules some of which appear calcified. Impression: No acute abnormality. Reviewed, dictated and finalized at location A. Impression: No acute abnormality.
--- NOTE | ~2025-04-21 | XR_ITS ---
EXAMINATION: XR shoulder RT min 2V, 04/21/2025 17:15 CDT HISTORY: FALL, R UPPER ARM PAIN COMPARISON: No comparisons available. Findings: There is a comminuted displaced angulated fracture of the humeral neck. The humeral head is dislocated anteriorly inferiorly. Large effusion. Soft tissue swelling. Impression: Fracture dislocation Reviewed, dictated and finalized at location A. Impression: Fracture dislocation
--- NOTE | ~2025-04-21 | XR_ITS ---
EXAMINATION: XR elbow RT min 3V, 04/21/2025 17:15 CDT HISTORY: FALL, R UPPER ARM PAIN COMPARISON: No comparisons available. Findings: No acute fracture or malalignment. No significant degenerative changes. Soft tissues unremarkable. Impression: No acute fracture or malalignment. Reviewed, dictated and finalized at location A. Impression: No acute fracture or malalignment.
--- NOTE | ~2025-04-21 | CT_ITS ---
EXAMINATION: CT brain wo fabi, 04/21/2025 18:30 CDT HISTORY: hit head, on blood thinners COMPARISON: No comparisons available. Technique: Axial images obtained of the brain without contrast. One or more of the following dose reduction techniques were used: automated exposure control, adjustment of the mA and/or kV according to patient size, use of iterative reconstruction technique. Findings: No acute infarct or parenchymal hemorrhage. No abnormal mass or mass effect. No midline shift. No extra-axial fluid collections. No hydrocephalus. Mastoid air cells unremarkable. Sinuses and orbits unremarkable. No acute fracture. No significant facial or scalp soft tissue swelling evident. No radiopaque foreign body is seen. Impression: 1.No acute intracranial abnormality. Reviewed, dictated and finalized at location A. Impression: 1.No acute intracranial abnormality.
--- NOTE | ~2025-04-21 | XR_ITS ---
EXAMINATION: XR humerus RT, 04/21/2025 17:15 CDT HISTORY: FALL, R UPPER ARM PAIN COMPARISON: No comparisons available. Findings: Displaced angulated fracture of the humeral neck redemonstrated. The humeral head is dislocated anteriorly and inferiorly. No significant degenerative changes. Soft tissues unremarkable. Impression: Fracture dislocation. Reviewed, dictated and finalized at location A. Impression: Fracture dislocation.
--- NOTE | 2025-04-21 17:45 | WC.ED.TRAUMA ---
HPI - Trauma General Chief Complaint: Extremity Injury, Upper <Lashawn Garvin APRN - Last Filed: 04/21/25 23:16> Stated Complaint: fall, L upper arm pain <Lashawn Garvin APRN - Last Filed: 04/21/25 23:16> Time Seen by Provider: 04/21/25 17:19 <Lashawn Garvin APRN - Last Filed: 04/21/25 23:16> History of Present Illness HPI narrative: Patient is a 54-year-old female who presents to the ER following a right arm injury. She reports she was in the bathroom and the floor was wet. She slipped and her elbow hit the floor. Patient reports she felt something pop. She is unsure whether not she hit her head or lost consciousness, but patient reports she is on Coumadin. Patient endorses pain to her right shoulder, right humerus and right elbow. She also endorses pain to her cervical spine, thoracic spine, and lumbar spine. Patient endorses a history of an aortic mechanical valve, pulmonary embolism, DVTs. <Lashawn Garvin APRN - Last Filed: 04/21/25 23:16> Related Data Home Medications: Home Medications ?Medication ?Instructions ?Recorded ?Confirmed ?Last Taken ?Type ziprasidone HCl 20 mg capsule See Rx Instructions .Route .COMPLEX 01/27/22 01/09/25 07/23/24 History alprazolam 1 mg tablet 2 mg PO QHS 10/13/22 01/09/25 07/20/24 History multivitamin 1 tablet PO DAILY 10/13/22 01/09/25 07/23/24 History venlafaxine 150 mg 300 mg PO DAILY 10/13/22 01/09/25 07/23/24 History capsule,extended release 24 hr lisdexamfetamine 70 mg capsule 70 mg PO DAILY 05/03/23 01/09/25 07/23/24 History (Vyvanse) pravastatin 40 mg tablet 40 mg PO HS 06/03/23 01/09/25 07/20/24 History warfarin 4 mg tablet 4 mg PO DAILY 09/21/24 01/09/25 Unknown History aspirin 81 mg tablet 81 mg PO QPM 01/09/25 01/09/25 Unknown History cariprazine 4.5 mg capsule 4.5 mg PO DAILY 01/09/25 01/09/25 Unknown History (Vraylar) metoprolol tartrate 25 mg tablet 25 mg PO QHS 01/09/25 01/09/25 Unknown History <Lashawn Garvin APRN - Last Filed: 04/21/25 23:16> Allergies/Adverse Reactions: Allergies Allergy/AdvReac Type Severity Reaction Status Date / Time carbamazepine Allergy Severe Loss of Verified 04/21/25 17:47 Consciousness latex Allergy Intermediate rash, Verified 04/21/25 17:47 swelling Penicillins Allergy Intermediate Hives, Verified 04/21/25 17:47 yeast infection <Lashawn Garvin APRN - Last Filed: 04/21/25 23:16> Review of Systems Review of Systems: All systems reviewed & are unremarkable except as noted in HPI and below <Lashawn Garvin APRN - Last Filed: 04/21/25 23:16> [facility] Past Medical History Medical History: Medical History Cardiac abnormality BMI 39.0-39.9,adult Nausea Abnormal laboratory test Constipation Bloating Mouth sore Arthritis of left knee Hyperlipidemia Arthritis of carpometacarpal (CMC) joint of left thumb Osteoarthritis of left shoulder Recurrent falls Anxiety Essential (primary) hypertension History of CVA (cerebrovascular accident) <Lashawn Garvin APRN - Last Filed: 04/21/25 23:16> Surgical History Surgical History: Surgical History History of open heart surgery History of gastric surgery History of cholecystectomy H/O: section <Lashawn Garvin APRN - Last Filed: 04/21/25 23:16> Family History Family History: Family History Sibling Hypertension High cholesterol Heart disease Mother A-fib Family history of thyroid disease Hypertension High cholesterol Heart disease Diabetes mellitus Pulmonary disease Father , Parkinson's disease Hypertension High cholesterol Heart disease Pulmonary disease Other Heart attack <Lashawn Garvin APRN - Last Filed: 04/21/25 23:16> Social History Social History: Social History Smoking packs per day: 1.5 Smoking cigarettes per day: 30.0 Years smoked: 35 Smoking pack-years: 52.50 Smoking status: Former smoker Tobacco type: cigarettes Second hand tobacco smoke exposure: No Smoking end date: 08/01/06 Alcohol intake: current Drinks per week: 1 Substance use: never Substance use type: does not use Do You Feel Safe in your Home?: Yes Lack of Transportation: No Lack of Food: Never True Current Housing: I Have Housing Concerned About Future Housing: No Difficulty Paying Gas/Electric Bills: No Difficulty Paying for Meds: No Education: High School Diploma/GED Difficulty w/ Childcare or Family Care: No Living arrangements: with family Occupation/Education: occupation Additional occupation/education comments: office work-pre [employer] Gender identity (if verbalized by the patient): Female Spiritual care concerns: No <Lashawn Garvin APRN - Last Filed: 04/21/25 23:16> Exam Narrative: GENERAL: Well appearing, obese, non-toxic, in acute distress. HEAD: Normocephalic, atraumatic. NECK: Supple. No adenopathy, no masses. RESPIRATORY: Airway patent, respirations nonlabored. Clear to auscultation bilaterally, no rales, rhonchi, wheezing. CARDIOVASCULAR: Regular rate and rhythm with murmurs. No rubs, or gallops. Peripheral pulses 2+ and equal bilaterally. ABDOMINAL: Soft, nontender, nondistended. Normoactive BS. MUSCULOSKELETAL: Moves all extremities. Strength/ROM intact. Palpable swelling to R shoulder. Pt unable to tolerate palpation or manipulation to area. R hand neurovascularly intact. SKIN: Warm, dry, normal color. No rashes. NEURO: A&O X3. Speech clear. Cranial nerves II-XII intact. No ataxic movements. PSYCHIATRIC: Appropriate mood and affect. Normal interaction. <Lashawn Garvin APRN - Last Filed: 04/21/25 23:16> Course TELEPHONE CLEANER/PA Physician Supervision This visit was performed by both a physician and an APC. I performed all aspects of the MDM as documented. <Marcelino Kelly MD - Last Filed: 04/25/25 07:09> Vital Signs Vital signs: Vital Signs Temperature 97.6 F 04/21/25 16:30 Pulse Rate 89 04/21/25 16:30 Respiratory Rate 20 04/21/25 16:30 Blood Pressure 133/66 04/21/25 16:30 Pulse Oximetry 100 04/21/25 16:30 Temperature 97.6 F 04/21/25 16:30 Pulse Rate 97 04/21/25 23:23 Respiratory Rate 22 H 04/21/25 23:23 Blood Pressure 148/90 H 04/21/25 23:23 Pulse Oximetry 100 04/21/25 23:23 <Lashawn Garvin, TEXTILE CONVERSION MANAGER - Last Filed: 04/21/25 23:16> Vital Signs Temperature 97.6 F 04/21/25 16:30 Pulse Rate 89 04/21/25 16:30 Respiratory Rate 20 04/21/25 16:30 Blood Pressure 133/66 04/21/25 16:30 Pulse Oximetry 100 04/21/25 16:30 Temperature 97.6 F 04/21/25 16:30 Pulse Rate 97 04/21/25 23:23 Respiratory Rate 22 H 04/21/25 23:23 Blood Pressure 148/90 H 04/21/25 23:23 Pulse Oximetry 100 04/21/25 23:23 <Marcelino Kelly MD - Last Filed: 04/25/25 07:09> MDM - Trauma MDM Narrative Medical decision making narrative: Patient is a 54-year-old female who presents to the ER following a right arm injury. She reports she was in the bathroom and the floor was wet. She slipped and her elbow hit the floor. Patient reports she felt something pop. She is unsure whether not she hit her head or lost consciousness, but patient reports she is on Coumadin. Patient endorses pain to her right shoulder, right humerus and right elbow. She also endorses pain to her cervical spine, thoracic spine, and lumbar spine. Patient endorses a history of an aortic mechanical valve, pulmonary embolism, DVTs. Labs Ordered: CBC, CMP, INR, PTT Imaging Ordered: R humeral x-ray, R shoulder x-ray, R elbow x-ray, CT head, CT cervical spine, CT thoracic spine, CT lumbar spine Medications Ordered: 1 L normal saline IV bolus, Dilaudid 0.5 mg IV, Zofran 4 mg IV Results: Patient's right shoulder x-ray indicates There is a comminuted displaced angulated fracture of the humeral neck. The humeral head is dislocated anteriorly inferiorly. Large effusion. Soft tissue swelling. Her CT head, CT cervical, CT thoracic, and CT lumbar spine scans were all negative for acute abnormalities. Diagnosis: Right shoulder comminuted displaced angulated fracture of the humeral neck Consults: 1749- Spoke with transfer center from [facility]. They are contacting orthopedic surgery, who will call back. 1819- Images sent to orthopedic surgery, Dr June, who reports pt should be transferred to [facility] for further evaluation and treatment. Results of imaging shared with patient and her family. It was advised patient be admitted to a trauma hospital for further evaluation and treatment. Patient and her family verbalize understanding and are in agreement with plan. Will try to get CT scans and blood work obtained before pt is transferred. 2129- Pt endorses ongoing pain. She will be given another dose of Dilaudid and her home dose of Xanax, which she takes every night. CRITICAL CARE ADDENDUM: Indication: Trauma with fracture Time type: intermittent I provided a total of 45 minutes of critical care excluding separately billable procedures. This includes time w/ EMS, initial bedside evaluation, reviewing old records, review of testing done while under my care, discussion w/ the family, nurses, energy sales consultant and guiding the patient?s care while in the emergency department. Approximate time distribution: 5 minutes ? Initial evaluation, d/w involved parties, attempting to gather old records. 10 minutes ? Documenting medical record 10 minutes ? Review of results (EKGs, labs, imaging) 10 minutes ? Serial repeat bedside evaluation 10 minutes ? Discussing case with multiple providers Please see main chart for details. Differential diagnoses include subdural hematoma, cervical fracture, cervical strain, thoracic strain, lumbar strain, lumbar fracture, humeral neck fracture, shoulder dislocation [id number] here to transport patient to [facility] ER. Patient A&O x4. She reports the pain medication has not helped subside her pain is so she will be given another dose of Dilaudid prior to transport from the ER. This visit was performed by both a physician and an APC. I performed all aspects of the MDM as documented. <Lashawn Garvin, COLLEEN - Last Filed: 04/21/25 23:16> Patient is a 54-year-old female who presents to the ER following a right arm injury. She reports she was in the bathroom and the floor was wet. She slipped and her elbow hit the floor. Patient reports she felt something pop. She is unsure whether not she hit her head or lost consciousness, but patient reports she is on Coumadin. Patient endorses pain to her right shoulder, right humerus and right elbow. She also endorses pain to her cervical spine, thoracic spine, and lumbar spine. Patient endorses a history of an aortic mechanical valve, pulmonary embolism, DVTs. Labs Ordered: CBC, CMP, INR, PTT Imaging Ordered: R humeral x-ray, R shoulder x-ray, R elbow x-ray, CT head, CT cervical spine, CT thoracic spine, CT lumbar spine Medications Ordered: 1 L normal saline IV bolus, Dilaudid 0.5 mg IV, Zofran 4 mg IV Results: Patient's right shoulder x-ray indicates There is a comminuted displaced angulated fracture of the humeral neck. The humeral head is dislocated anteriorly inferiorly. Large effusion. Soft tissue swelling. Diagnosis: Right shoulder comminuted displaced angulated fracture of the humeral neck Consults: 1749- Spoke with transfer center from [facility]. They are contacting orthopedic surgery, who will call back. 1819- Images sent to orthopedic surgery, Dr June, who reports pt should be transferred to [facility] for further evaluation and treatment. Results of imaging shared with patient and her family. It was advised patient be admitted to a trauma hospital for further evaluation and treatment. Patient and her family verbalize understanding and are in agreement with plan. Will try to get CT scans and blood work obtained before pt is transferred. This visit was performed by both a physician and an APC. I performed all aspects of the MDM as documented. <Marcelino Kelly MD - Last Filed: 04/25/25 07:09> Medical Records Attestation: I reviewed the patient's medical records. <Lashawn Garvin APRN - Last Filed: 04/21/25 23:16> Lab Data Attestation: I reviewed the patient's lab results. <Lashawn Garvin APRN - Last Filed: 04/21/25 23:16> Result diagrams: 04/21/25 18:38 <Lashawn Garvin APRN - Last Filed: 04/21/25 23:16> Labs: Lab Results 04/21/25 04/21/25 Range/Units 18:37 18:38 WBC 17.3 H (4.5-10.0) K/mm3 RBC 5.03 (4.2-5.4) M/mm3 Hgb 13.9 (12.0-15.0) g/dL Hct 42.7 (37.0-47.0) % MCV 84.9 (80-100) fl MCH 27.6 (26-34) pg MCHC 32.6 (32-36) g/dl RDW 12.8 (11.5-14.5) % Plt Count 276 (150-375) k/mm3 MPV 9.6 (7.4-10.4) fl Immature Gran % (Auto) 0.5 (0-0.5) % Neut % (Auto) 85.0 H (45.5-73.1) % Lymph % (Auto) 9.9 L (18.3-44.2) % [place] % (Auto) 4.4 (2.6-8.5) % Eos % (Auto) 0.0 (0-4.4) % Baso % (Auto) 0.2 (0.2-1.2) % Lymph # (Auto) 1.71 (0.9-3.2) K/mm3 [place] # (Auto) 0.8 H (0.1-0.6) K/mm3 Eos # (Auto) 0.0 (0-0.3) K/mm3 Baso # (Auto) 0.0 (0.0-0.1) K/mm3 Abs Immat Gran (auto) 0.09 H (0.00-0.031) K/mm3 Absolute Neuts (auto) 14.7 H (1.3-6.7) K/mm3 Absolute Nucleated RBC 0.000 (0.0-0.012) K/mm3 Nucleated RBC % 0.0 (0.0-0.2) % PT 27.7 H (11.1-14.7) Seconds INR 2.7 APTT 34.3 (22.3-36.8) Seconds Sodium Cancelled Potassium Cancelled Chloride Cancelled Carbon Dioxide Cancelled Anion Gap Cancelled BUN Cancelled Creatinine Cancelled Estim Creat Clear Calc Cancelled Estimated GFR Cancelled Glucose Cancelled Calcium Cancelled Total Bilirubin Cancelled AST Cancelled ALT Cancelled Alkaline Phosphatase Cancelled Total Protein Cancelled Albumin Cancelled <Lashawn Garvin, TEXTILE CONVERSION MANAGER - Last Filed: 04/21/25 23:16> Lab Results 04/21/25 04/21/25 Range/Units 18:37 18:38 WBC 17.3 H (4.5-10.0) K/mm3 RBC 5.03 (4.2-5.4) M/mm3 Hgb 13.9 (12.0-15.0) g/dL Hct 42.7 (37.0-47.0) % MCV 84.9 (80-100) fl MCH 27.6 (26-34) pg MCHC 32.6 (32-36) g/dl RDW 12.8 (11.5-14.5) % Plt Count 276 (150-375) k/mm3 MPV 9.6 (7.4-10.4) fl Immature Gran % (Auto) 0.5 (0-0.5) % Neut % (Auto) 85.0 H (45.5-73.1) % Lymph % (Auto) 9.9 L (18.3-44.2) % [place] % (Auto) 4.4 (2.6-8.5) % Eos % (Auto) 0.0 (0-4.4) % Baso % (Auto) 0.2 (0.2-1.2) % Lymph # (Auto) 1.71 (0.9-3.2) K/mm3 [place] # (Auto) 0.8 H (0.1-0.6) K/mm3 Eos # (Auto) 0.0 (0-0.3) K/mm3 Baso # (Auto) 0.0 (0.0-0.1) K/mm3 Abs Immat Gran (auto) 0.09 H (0.00-0.031) K/mm3 Absolute Neuts (auto) 14.7 H (1.3-6.7) K/mm3 Absolute Nucleated RBC 0.000 (0.0-0.012) K/mm3 Nucleated RBC % 0.0 (0.0-0.2) % PT 27.7 H (11.1-14.7) Seconds INR 2.7 APTT 34.3 (22.3-36.8) Seconds Sodium Cancelled Potassium Cancelled Chloride Cancelled Carbon Dioxide Cancelled Anion Gap Cancelled BUN Cancelled Creatinine Cancelled Estim Creat Clear Calc Cancelled Estimated GFR Cancelled Glucose Cancelled Calcium Cancelled Total Bilirubin Cancelled AST Cancelled ALT Cancelled Alkaline Phosphatase Cancelled Total Protein Cancelled Albumin Cancelled <Marcelino Kelly MD - Last Filed: 04/25/25 07:09> Imaging Data Attestation: I personally reviewed and interpreted this imaging study as follows: <Lashawn Garvin APRN - Last Filed: 04/21/25 23:16> Radiologist's impression: Impressions Shoulder X-Ray 04/21/25 17:38 Impression: Fracture dislocation Elbow X-Ray 04/21/25 17:39 Impression: No acute fracture or malalignment. Humerus X-Ray 04/21/25 17:39 Impression: Fracture dislocation. Cervical Spine CT 04/21/25 18:49 Impression: No acute abnormality. Head CT 04/21/25 18:53 Impression: 1.No acute intracranial abnormality. Thoracic/Lumbar Spine CT 04/21/25 18:57 Impression: No acute abnormality. <Lashawn Garvin APRN - Last Filed: 04/21/25 23:16> Critical Care Time Critical Care Time Critical Care Time: Yes <Lashawn Garvin APRN - Last Filed: 04/21/25 23:16> Total Critical Care Time: 45 <Lashawn Garvin APRN - Last Filed: 04/21/25 23:16> Discharge Plan Discharge Clinical Impression: Closed comminuted right humeral fracture, Impacted fracture of anteromedial aspect of humeral head with posterior dislocation of the humerus, Fall, Chronic anticoagulation, History of mechanical aortic valve replacement <Lashawn Garvin APRN - Last Filed: 04/21/25 23:16> Patient Disposition: Acute Care Hospital <Lashawn Garvin APRN - Last Filed: 04/21/25 23:16> Condition: Serious <Lashawn Garvin APRN - Last Filed: 04/21/25 23:16> Patient Language: Jamaican <Lashawn Garvin APRN - Last Filed: 04/21/25 23:16> Prescriptions: No Action alprazolam 1 mg tablet 2 mg PO QHS venlafaxine 150 mg capsule,extended release 24hr 300 mg PO DAILY multivitamin Tablet 1 tablet PO DAILY nitroglycerin 0.4 mg tablet, sublingual 0.4 mg sublingual Q5M PRN (Reason: chest pain) Qty: 30 1RF Rx Instructions: do not exceed 3 doses per episode warfarin 4 mg tablet 4 mg PO DAILY omeprazole 40 mg capsule,delayed release(DR/EC) 40 mg PO DAILY 90 Days Qty: 90 3RF Vraylar 4.5 mg capsule 4.5 mg PO DAILY aspirin 81 mg tablet 81 mg PO QPM metoprolol tartrate 25 mg tablet 25 mg PO QHS silver sulfadiazine [Silvadene] 1 % cream 1 applic topical BID Qty: 400 0RF Rx Instructions: apply a 1.5 mm thickness ziprasidone HCl 20 mg capsule See Rx Instructions .ROUTE .COMPLEX Rx Instructions: 20 mg Q morning and 80 mg Q HS-give with food (meal/snack) lisdexamfetamine [Vyvanse] 70 mg capsule 70 mg PO DAILY pravastatin 40 mg tablet 40 mg PO HS varenicline tartrate 1 mg tablet 1 mg PO BID Qty: 56 1RF (DME) Accu-Chek Safe-T-Pro 23 gauge misc See Rx Instructions .Route Qty: 200 1RF Rx Instructions: Use daily as directed ramipril [Altace] 10 mg capsule 10 mg PO DAILY Qty: 90 1RF Patient Comments: has not received medication yet but knows she is supposed to be taking it <Lashawn Garvin APRN - Last Filed: 04/21/25 23:16> Follow-up/Referrals: Feliciano Ureña APRN [Primary Care Provider, Internal Medicine] <Lashawn Garvin APRN - Last Filed: 04/21/25 23:16>
[2025-04-21] MEDS: ONDANSETRON INJ 4 MG/2 ML VIAL IV PUSH (18:36)
[2025-04-21] MEDS: SODIUM CHLORIDE 0.9% IV 1,000 ML 999 ML IV CONT (18:36)
[2025-04-21] MEDS: HYDROmorphone HCL INJ (*CRX) 1 MG/ML SYR 0.5 MG IV PUSH ×2 (18:37→19:51)
[2025-04-21 18:43] LABS: Hematocrit 42.7 % (37.0-47.0); Hemoglobin 13.9 g/dL (12.0-15.0); Immature Granulocyte Percent A 0.5 % (0-0.5); Lymphocytes Absolute Auto 1.71 K/mm3 (0.9-3.2); Mean Corpuscular HGB Conc 32.6 g/dl (32-36); Mean Corpuscular Hemoglobin 27.6 pg (26-34); Mean Corpuscular Volume 84.9 fl (80-100); Nucleated Red Blood Cells Absolute Auto 0.000 K/mm3 (0.0-0.012); Nucleated Red Blood Cells Perc 0.0 % (0.0-0.2); Platelet Count Result 276 k/mm3 (150-375); Red Blood Count 5.03 M/mm3 (4.2-5.4); White Blood Count 17.3 K/mm3 (4.5-10.0)
[2025-04-21 18:54] LABS: INR 2.7; Prothrombin Time 27.7 Seconds (11.1-14.7)
[2025-04-21 18:55] LABS: Partial Thromboplastin Time 34.3 Seconds (22.3-36.8)
[2025-04-21] MEDS: ALPRAZolam (*CRX) 0.5 MG TABLET 2 MG PO (21:53)
[2025-04-21] MEDS: HYDROmorphone HCL INJ (*CRX) 1 MG/ML SYR IV PUSH ×2 (21:53→23:17)
--- NOTE | 2025-04-21 23:27 | PC.NURSE ---
[facility] ED called and informed off eta of pt arrival.
== END 2025-04-21 23:20 | disposition short-term general hospital (02) ==
PROVIDERS: Emergency Provider Registered Nurse; PCP Nurse Practitioner
DX: S42.211A Unspecified displaced fracture of surgical neck of right humerus, initial encounter for closed fracture (principal); I10 Essential (primary) hypertension; E78.5 Hyperlipidemia, unspecified; M17.12 Unilateral primary osteoarthritis, left knee; M18.9 Osteoarthritis of first carpometacarpal joint, unspecified; F41.9 Anxiety disorder, unspecified; Z95.2 Presence of prosthetic heart valve; Z98.84 Bariatric surgery status; Z86.73 Personal history of transient ischemic attack (TIA), and cerebral infarction without residual deficits; Z87.891 Personal history of nicotine dependence; Z90.49 Acquired absence of other specified parts of digestive tract; Z79.01 Long term (current) use of anticoagulants; Z79.82 Long term (current) use of aspirin; Z79.899 Other long term (current) drug therapy; W01.0XXA Fall on same level from slipping, tripping and stumbling without subsequent striking against object, initial encounter
CPT/HCPCS: 36415; 70450; 72125; 72128; 72131; 73030; 73060; 73080; 85025; 85610; 85730; 96361; 96374; 96375; 96376; 99285; A4565; A9270; J1171; J2405; J7030

== ENCOUNTER 2025-05-27 18:03 | Emergency (ER) | payer BC, SELFPAY ==
--- NOTE | ~2025-05-27 | XR_ITS ---
EXAMINATION: XR hand LT min 3V DATE: 05/27/2025 18:23 INDICATION: Left dorsal hand bruising and swelling TECHNIQUE: Posteroanterior, oblique and lateral views of the left hand were obtained. COMPARISON: None. FINDINGS: Diffuse osteopenia. Bone alignment is normal. No fracture. Severe osteoarthritis at the first carpal metacarpal joint. Mild osteoarthritis at many of the remaining joints in the left hand and wrist. Prominent soft tissue swelling of the dorsal and ulnar aspect of the hand. IMPRESSION: 1. Prominent dorsal soft tissue swelling. No acute osseous abnormality. 2. Polyarticular osteoarthritis, severe at the first carpal metacarpal joints and otherwise mild. Reviewed, dictated and finalized at location A. IMPRESSION: 1. Prominent dorsal soft tissue swelling. No acute osseous abnormality. 2. Polyarticular osteoarthritis, severe at the first carpal metacarpal joints a nd otherwise mild.
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
[2025-05-27 18:10] VITALS: BP 117/66; PULSE 102; RESP 16; TEMP 36.8; O2SAT 99
== END 2025-05-27 18:41 | disposition home or self-care (01) ==
PROVIDERS: Emergency Provider Nurse Practitioner Family; PCP Internal Medicine
DX: S60.222A Contusion of left hand, initial encounter (principal); X58.XXXA Exposure to other specified factors, initial encounter; I10 Essential (primary) hypertension; E78.5 Hyperlipidemia, unspecified; M19.012 Primary osteoarthritis, left shoulder; F41.9 Anxiety disorder, unspecified; Z79.01 Long term (current) use of anticoagulants; Z79.82 Long term (current) use of aspirin; Z86.73 Personal history of transient ischemic attack (TIA), and cerebral infarction without residual deficits
CPT/HCPCS: 73130; 99213; G0463

== ENCOUNTER 2025-06-18 11:15 | Emergency (ER) | payer BC, SELFPAY ==
[2025-06-18 11:22] VITALS: BP 132/90; PULSE 118; RESP 18; TEMP 37.1; O2SAT 100
[2025-06-18 11:53] LABS: Hematocrit 35.1 % (37.0-47.0); Hemoglobin 11.3 g/dL (12.0-15.0); Immature Granulocyte Percent A 0.3 % (0-0.5); Lymphocytes Absolute Auto 1.61 K/mm3 (0.9-3.2); Mean Corpuscular HGB Conc 32.2 g/dl (32-36); Mean Corpuscular Hemoglobin 26.5 pg (26-34); Mean Corpuscular Volume 82.4 fl (80-100); Nucleated Red Blood Cells Absolute Auto 0.000 K/mm3 (0.0-0.012); Nucleated Red Blood Cells Perc 0.0 % (0.0-0.2); Platelet Count Result 380 k/mm3 (150-375); Red Blood Count 4.26 M/mm3 (4.2-5.4); White Blood Count 9.6 K/mm3 (4.5-10.0)
[2025-06-18 12:04] LABS: Prothrombin Time 83.9 Seconds (11.1-14.7)
[2025-06-18 12:06] LABS: Alanine Aminotransferase 16 U/L (6-35); Albumin Level 4.2 g/dL (3.5-5.1); Alkaline Phosphatase 118 U/L (38-126); Anion Gap 8 mmol/L (4-12); Aspartate Amino Transferase 27 U/L (14-36); Bilirubin,Total 0.8 mg/dL (0.2-1.3); Blood Urea Nitrogen 10 mg/dL (7-17); Calcium 9.1 mg/dL (8.4-10.2); Carbon Dioxide 26 mmol/L (22-30); Chloride 102 mmol/L (98-107); Estimated CRCL calculation 88 ml/min; Estimated Glomerular Filt Rate > 60; Glucose 123 mg/dL (65-110); Potassium 2.9 mmol/L (3.4-5.0); Sodium 136 mmol/L (137-145); Total Protein 7.8 g/dL (6.3-8.2)
[2025-06-18 12:08] VITALS: BP 130/81; PULSE 108; RESP 18; O2SAT 97
--- NOTE | 2025-06-18 12:10 | ED.RECABL ---
HPI - Recheck/Abnormal Lab/Rx General Chief Complaint: Recheck/Abnormal Lab/Rx Stated Complaint: INR 16.4 Time Seen by Provider: 06/18/25 12:02 Source: patient Mode of arrival: ambulatory Limitations: no limitations History of Present Illness HPI narrative: This is a 54-year-old female with history of aortic valve dysfunction status post mechanical valve placement on warfarin who presents to the ED for abnormal INR. Patient states that she was checking her INR previously at home but has not had strips for it and last had her INR checked a month ago. She had her INR checked today and it was 16 prompting her to be sent to the ED for further evaluation. Patient does note some hematuria but denies any other bleeding at this time. Reports easy bleeding and hematoma to her left hand. Denies falls, hitting her head. Related Data Home Medications ?Medication ?Instructions ?Recorded ?Confirmed ?Last Taken ?Type alprazolam 1 mg tablet 2 mg PO QHS 10/13/22 05/15/25 07/20/24 History multivitamin 1 tablet PO DAILY 10/13/22 05/15/25 07/23/24 History lisdexamfetamine 70 mg capsule 70 mg PO DAILY 05/03/23 05/15/25 07/23/24 History (Vyvanse) pravastatin 40 mg tablet 40 mg PO HS 06/03/23 05/15/25 07/20/24 History warfarin 4 mg tablet 4 mg PO DAILY 09/21/24 05/15/25 Unknown History aspirin 81 mg tablet 81 mg PO QPM 01/09/25 05/15/25 Unknown History cariprazine 4.5 mg capsule 4.5 mg PO DAILY 01/09/25 05/15/25 Unknown History (Vraylar) metoprolol tartrate 25 mg tablet 25 mg PO QHS 01/09/25 05/15/25 Unknown History Allergies Allergy/AdvReac Type Severity Reaction Status Date / Time carbamazepine Allergy Severe Loss of Verified 05/27/25 18:20 Consciousness latex Allergy Intermediate rash, Verified 05/27/25 18:20 swelling Penicillins Allergy Intermediate Hives, Verified 05/27/25 18:20 yeast infection Review of Systems Review of Systems: Gen.: Denies fevers or chills Eyes: Denies eye pain or visual change ENT: Denies congestion Respiratory: Denies shortness of breath or cough CV: Denies chest pain or palpitations GI: Denies abdominal pain nausea, emesis or diarrhea denies burning, urgency, frequency or hematuria Musculoskeletal: Denies back pain or muscle pain Neuro: Denies numbness, tingling, weakness or focal weakness Skin: Denies rash Except as documented, all other systems reviewed and negative [facility] Past Medical History Medical History Cardiac abnormality BMI 39.0-39.9,adult Nausea Abnormal laboratory test Constipation Bloating Mouth sore Arthritis of left knee Hyperlipidemia Arthritis of carpometacarpal (CMC) joint of left thumb Osteoarthritis of left shoulder Recurrent falls Anxiety Essential (primary) hypertension History of CVA (cerebrovascular accident) Surgical History Surgical History History of open heart surgery History of gastric surgery History of cholecystectomy H/O: section Family History Family History Sibling Hypertension High cholesterol Heart disease Mother A-fib Family history of thyroid disease Hypertension High cholesterol Heart disease Diabetes mellitus Pulmonary disease Father , Parkinson's disease Hypertension High cholesterol Heart disease Pulmonary disease Other Heart attack Social History Social History Smoking packs per day: 1.5 Smoking cigarettes per day: 30.0 Years smoked: 35 Smoking pack-years: 52.50 Smoking status: Former smoker Tobacco type: cigarettes Second hand tobacco smoke exposure: No Smoking end date: 08/01/06 Alcohol intake: current Drinks per week: 1 Substance use: never Substance use type: does not use Do You Feel Safe in your Home?: Yes Lack of Transportation: No Lack of Food: Never True Current Housing: I Have Housing Concerned About Future Housing: No Difficulty Paying Gas/Electric Bills: No Difficulty Paying for Meds: No Education: High School Diploma/GED Difficulty w/ Childcare or Family Care: No Living arrangements: with family Occupation/Education: occupation 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 CARDIOVASCULAR: Regular rate and rhythm without murmurs rubs or gallops. ABDOMINAL: Soft, nontender, nondistended, no rebound or guarding MUSCULOSKELETAl: Moves all extremities. No clubbing, cyanosis or edema. NEURO: Awake and alert. Following commands, speech normal, no focal deficits SKIN:: Warm, dry. Scattered bruises to her extremities. There is a 2 x 2 cm hematoma to the dorsum of the left hand. No active bleeding. PSYCHIATRIC: Normal affect/mood, Course Vital Signs Vital signs: Vital Signs Temperature 98.7 F 06/18/25 11:22 Pulse Rate 118 H 06/18/25 11:22 Respiratory Rate 18 06/18/25 11:22 Blood Pressure 132/90 06/18/25 11:22 Pulse Oximetry 100 06/18/25 11:22 Oxygen Delivery Room Air 06/18/25 11:22 Temperature 98.7 F 06/18/25 11:22 Pulse Rate 100 06/18/25 12:47 Respiratory Rate 16 06/18/25 12:47 Blood Pressure 130/85 06/18/25 12:47 Pulse Oximetry 100 06/18/25 12:47 Oxygen Delivery Room Air 06/18/25 11:22 MDM - Recheck/Abnormal Lab/Rx MDM Narrative Medical decision making narrative: 54-year-old female Presenting for elevated INR. On initial evaluation patient was in no acute distress afebrile, hemodynamic stable. Differentials include but are not limited to: Medication overdose, medication overuse, Notable exam findings: [] I personally reviewed the patient's lab result. Notable lab findings: [] I personally reviewed the patient's images and interpret as follows: [] I personally reviewed the patient's EKGs: [] Lab Data 06/18/25 11:41 06/18/25 11:41 Labs: Lab Results 06/18/25 Range/Units 11:41 WBC 9.6 (4.5-10.0) K/mm3 RBC 4.26 (4.2-5.4) M/mm3 Hgb 11.3 L (12.0-15.0) g/dL Hct 35.1 L (37.0-47.0) % MCV 82.4 (80-100) fl MCH 26.5 (26-34) pg MCHC 32.2 (32-36) g/dl RDW 12.6 (11.5-14.5) % Plt Count 380 H (150-375) k/mm3 MPV 9.7 (7.4-10.4) fl Immature Gran % (Auto) 0.3 (0-0.5) % Neut % (Auto) 75.8 H (45.5-73.1) % Lymph % (Auto) 16.8 L (18.3-44.2) % Robeson % (Auto) 6.8 (2.6-8.5) % Eos % (Auto) 0.0 (0-4.4) % Baso % (Auto) 0.3 (0.2-1.2) % Lymph # (Auto) 1.61 (0.9-3.2) K/mm3 Robeson # (Auto) 0.7 H (0.1-0.6) K/mm3 Eos # (Auto) 0.0 (0-0.3) K/mm3 Baso # (Auto) 0.0 (0.0-0.1) K/mm3 Abs Immat Gran (auto) 0.03 (0.00-0.031) K/mm3 Absolute Neuts (auto) 7.3 H (1.3-6.7) K/mm3 Absolute Nucleated RBC 0.000 (0.0-0.012) K/mm3 Nucleated RBC % 0.0 (0.0-0.2) % PT 83.9 H (11.1-14.7) Seconds INR 11.7 H* APTT > 200.0 H* (22.3-36.8) Seconds Sodium 136 L (137-145) mmol/L Potassium 2.9 L (3.4-5.0) mmol/L Chloride 102 (98-107) mmol/L Carbon Dioxide 26 (22-30) mmol/L Anion Gap 8 (4-12) mmol/L BUN 10 (7-17) mg/dL Creatinine 0.81 (0.7-1.0) mg/dL Estim Creat Clear Calc 88 ml/min Estimated GFR > 60 (59 - ) Glucose 123 H (65-110) mg/dL Calcium 9.1 (8.4-10.2) mg/dL Total Bilirubin 0.8 (0.2-1.3) mg/dL AST 27 (14-36) U/L ALT 16 (6-35) U/L Alkaline Phosphatase 118 (38-126) U/L Total Protein 7.8 (6.3-8.2) g/dL Albumin 4.2 (3.5-5.1) g/dL Discharge Plan Discharge Clinical Impression: Supratherapeutic INR Patient Disposition: Home Condition: Stable Instructions: Antibiotic Form Additional Instructions: Have your INR checked again and 24-48 hours. Hold your warfarin until the level returns. Follow up with her PCP tomorrow to discuss this. Return to the ED for any new or worsening symptoms. Patient Language: Divehi Prescriptions: No Action alprazolam 1 mg tablet 2 mg PO QHS multivitamin Tablet 1 tablet PO DAILY nitroglycerin 0.4 mg tablet, sublingual 0.4 mg sublingual Q5M PRN (Reason: chest pain) Qty: 30 1RF Rx Instructions: do not exceed 3 doses per episode warfarin 4 mg tablet 4 mg PO DAILY omeprazole 40 mg capsule,delayed release(DR/EC) 40 mg PO DAILY 90 Days Qty: 90 3RF Vraylar 4.5 mg capsule 4.5 mg PO DAILY aspirin 81 mg tablet 81 mg PO QPM metoprolol tartrate 25 mg tablet 25 mg PO QHS lisdexamfetamine [Vyvanse] 70 mg capsule 70 mg PO DAILY pravastatin 40 mg tablet 40 mg PO HS varenicline tartrate 1 mg tablet 1 mg PO BID Qty: 56 1RF (DME) Accu-Chek Safe-T-Pro 23 gauge misc See Rx Instructions .Route Qty: 200 1RF Rx Instructions: Use daily as directed ramipril [Altace] 10 mg capsule 10 mg PO DAILY Qty: 90 1RF Patient Comments: has not received medication yet but knows she is supposed to be taking it Follow-up/Referrals: Geovany Wong DO [Primary Care Provider, Internal Medicine]
[2025-06-18 12:11] LABS: INR 11.7
[2025-06-18 12:16] LABS: Partial Thromboplastin Time > 200.0 Seconds (22.3-36.8)
[2025-06-18] MEDS: PHYTONADIONE 2.5 MG TAB PO (12:42)
[2025-06-18 12:47] VITALS: BP 130/85; PULSE 100; RESP 16; O2SAT 100
== END 2025-06-18 12:56 | disposition home or self-care (01) ==
LOC: ANHED 12:28
PROVIDERS: Emergency Medicine; Emergency Provider Student in an Organized Health Care Education/Training Program; PCP Internal Medicine
DX: R79.1 Abnormal coagulation profile (principal); Z79.01 Long term (current) use of anticoagulants; M19.90 Unspecified osteoarthritis, unspecified site; F41.9 Anxiety disorder, unspecified; I10 Essential (primary) hypertension; Z86.73 Personal history of transient ischemic attack (TIA), and cerebral infarction without residual deficits
CPT/HCPCS: 36415; 80053; 85025; 85610; 85730; 99283; A9270